=== PATIENT | male | born 1980 | race Caucasian/White ===

== ENCOUNTER 2017-10-23 23:43 | Inpatient (IN) ==
[2017-10-23 23:56] VITALS: BMI 23.6
[2017-10-23] MEDS ORDERED: NS 1000 ML 1,000 ML IV ONE ×2 (23:57)
[2017-10-23] MEDS ORDERED: NS 1000 ML 1,000 ML ONE (23:59)
--- NOTE | 2017-10-23 23:59 | DR.GENAD ---
HPI - PCP Primary Care Physician: KRYS - Complaint/Symptoms Chief Complaint Doctors Comments: Patient states that he has had vomiiting and diarrhea for three days. He also complains of stomach pain. He denies fever Chief Complaint:: N/V ABD PAIN FOR 3 DAYS - Source History Provided: Patient - Mode of Arrival Mode of Arrival: Stretcher - Timing Onset of Chief Complaint: 10/20/17 PMH - PMH Past Medical History: Yes Past Medical History: Anxiety, Depression, Diabetes, GERD, Hypertension Past Surgical History: Yes Surgical History: Other Past Surgical History Comment: PAC - Family History History of Family Medical Conditions: Yes Family Medical History: Diabetes Mellitus, Sudden Cardiac , Hypertension - Social History Type of Tobacco Use: Cigarettes Does any household member use tobacco: Yes Do you use any recreational Drugs:: No - infectious screening In the last 2 months have you had wt loss of >10#?: NO Have you had fever, night sweats or hemotysis?: No Have you traveled outside the country in the last 6 months?: No Isolation: Standard ROS - Review of Systems Constitutional: negative: Diaphoresis Eyes: No Symptoms Reported ENTM: No Symptoms Reported Respiratoy: No Symptoms Reported Cardiovascular: No Symptoms Reported Gastrointestinal/Abdominal: No Symptoms Reported, Abdominal Pain Genitourinary: No Symptoms Reported Neurological: No Symptoms Reported Musculoskeletal: No Symptoms Reported Integumentary: No Symptoms Reported Hematologic/Lymphatic: No Symptoms Reported Endocrine: No Symptoms Reported Psychiatric: No Symptoms Reported All Other Systems: Reviewed and Negative PE - General General Appearance: Alert, Anxious - Head Head Exam: Normal Inspection, Atraumatic - Eyes Eye exam: Normal Appearance, PERRL, EOMI - ENT ENT Exam: Normal Exam External Ear Exam: Normal External Inspection TM/Canal Exam: Bilateral Normal Nose Exam: Normal Nose Exam Mouth Exam: Normal Inspection Throat Exam: Normal Inspection - Neck Neck Exam: Normal Inspection - Chest Chest Inspection: Normal Inspection - Respiratory Respiratory Exam: Normal Lung Sounds Bilat Respiratory Exam: Bilateral Clear to Auscultation - Cardiovascular Cardiovascular Exam: Regular Rate - Abdominal Exam Abdominal Exam: Normal Inspection Abdominal Tenderness: Diffuse - Extremities Extremities Exam: Normal Inspection - Back Back Exam: Normal Inspection - Neurologic Neurological Exam: Alert, Oriented X3 - Psychiatric Psychiatric Exam: Normal Affect - Skin Skin Exam: Warm, Dry, Intact - Vital Signs Vitals: Temperature 98.2 F Pulse Rate 116 Respiratory Rate 18 Blood Pressure [Left Arm] 112/78 Blood Pressure [Right Arm] 165/93 Blood Pressure 130/86 O2 Sat by Pulse Oximetry 97 Course - Reevaluation 1st: Improved - Consultation Called: 01:35 (Dr Zapien returned agreed to admit for further evalaution) ROR - Labs Reviewed Result Diagrams: 10/24/17 00:10 10/24/17 03:48 - XRAY XRAY Interpreted by: Radiologist (CT abd/pel w. The patient received intravenous contrast followed by multiplanar images. The cardiac chambers lung bases are negative. The liver gallbladder pancreas spleen and left kidney are negative for active pathology. The right kidney demonstrates mild to moderate fullness of the renal pelvis without a discrete filling defect. The urinary bladder significantly distended relux related changes are suspected. The skeleton is negative. The retroperitoneum is negative for free fluid. There is a mild degree of stool retained diffusely throughout the colon compatible with constipation. A small rectal fecal impaction is present. Impressin: Rectal fecal impaction. Marked distention of the urinary bladder right sided ureteral reflux producing mild hydronephrosis.) - Labs Reviewed Laboratory: WBC 11.3 X10^3/uL (3.6-10.0) H 10/24/17 00:10 RBC 5.16 X10^6/uL (4.7-6.0) 10/24/17 00:10 Hgb 15.0 g/dL (13.5-18.0) 10/24/17 00:10 Hct 44.6 % (42.0-54.0) 10/24/17 00:10 MCV 86.4 fL (80.0-100.0) 10/24/17 00:10 MCH 29.0 pg (27.0-34.0) 10/24/17 00:10 MCHC 33.6 g/dL (33.0-35.0) 10/24/17 00:10 RDW 13.6 % (11.6-16.5) 10/24/17 00:10 Plt Count 246 X10^3/uL (150.0-450.0) 10/24/17 00:10 MPV 9.4 fL (7.4-11.0) 10/24/17 00:10 Neut % (Auto) 54.6 % (42.0-75.0) 10/24/17 00:10 Lymph % (Auto) 37.1 % (21.0-51.0) 10/24/17 00:10 [place] % (Auto) 5.2 % (0.0-13.0) 10/24/17 00:10 Eos % (Auto) 2.1 % (0.9-2.9) 10/24/17 00:10 Baso % (Auto) 1.0 % (0.2-1.0) 10/24/17 00:10 Neut # (Auto) 6.2 x10^3/uL (2.2-4.8) H 10/24/17 00:10 Lymph # (Auto) 4.2 X10^3/uL (1.3-2.9) H 10/24/17 00:10 [place] # (Auto) 0.6 x10^3/uL (0.3-0.8) 10/24/17 00:10 Eos # (Auto) 0.2 x10^3/uL (0.0-0.2) 10/24/17 00:10 Baso # (Auto) 0.1 X10^3/uL (0.0-0.1) 10/24/17 00:10 Absolute Nucleated RBC 0.1 /100WBC 10/24/17 00:10 Sample Site Lr 10/24/17 01:17 ABG pH 7.230 (7.35-7.45) L 10/24/17 01:17 ABG pCO2 29.0 mmHg (35.0-45.0) L 10/24/17 01:17 ABG pO2 101.0 mmHg (80.0-100.0) H 10/24/17 01:17 ABG HCO3 12.1 mmol/L (22-26) L* 10/24/17 01:17 ABG O2 Saturation 96.0 % (90-100) 10/24/17 01:17 ABG Base Excess -14.1 mmol/L (-2.0-2.0) L 10/24/17 01:17 Geoff Test Pos 10/24/17 01:17 A-a Gradient 12.0 mmHg 10/24/17 01:17 FiO2 21.000 10/24/17 01:17 Blood Gas Comments Marva well ae 10/24/17 01:17 Sodium 142 mmol/L (136-145) 10/24/17 03:48 Corrected Sodium 149 mmol/L (136-145) H 10/24/17 03:48 Potassium 4.3 mmol/L (3.5-5.1) 10/24/17 03:48 Chloride 103 mmol/L (98-107) 10/24/17 03:48 Carbon Dioxide 13.9 mmol/L (21-32) L* 10/24/17 03:48 BUN 6 mg/dL (7-18) L 10/24/17 03:48 Creatinine 1.27 mg/dL (0.70-1.30) 10/24/17 03:48 Est GFR (MDRD) Af Amer > 60 (>60) 10/24/17 03:48 Est GFR (MDRD) Non-Af > 60 (>60) 10/24/17 03:48 Glucose 388 mg/dL (65-99) H 10/24/17 03:48 Calcium 8.9 mg/dL (8.5-10.1) 10/24/17 03:48 Corrected Calcium TNP 10/24/17 00:10 Total Bilirubin 0.70 mg/dL (0.2-1.0) 10/24/17 00:10 AST 24 Units/L (15-37) 10/24/17 00:10 ALT 15 Units/L (12-78) 10/24/17 00:10 Alkaline Phosphatase 93 Units/L (46-116) 10/24/17 00:10 Total Protein 8.0 g/dL (6.4-8.2) 10/24/17 00:10 Albumin 4.0 g/dL (3.4-5.0) 10/24/17 00:10 Globulin 4.0 g/dL (2.5-4.5) 10/24/17 00:10 Albumin/Globulin Ratio 1.0 Ratio (1.1-2.1) L 10/24/17 00:10 Amylase 29 Units/L (25-115) 10/24/17 00:10 Lipase 45 Units/L (73-393) L 10/24/17 00:10 Specimen Type Random urine 10/24/17 02:54 Urine Color Pale yellow (YELLOW) 10/24/17 02:54 Urine Appearance Clear (CLEAR) 10/24/17 02:54 Urine pH 5.0 (5.0 - 8.0) 10/24/17 02:54 Ur Specific [place] 1.020 (1.000-1.030) 10/24/17 02:54 Urine Protein 2+ (NEGATIVE) 10/24/17 02:54 Urine Glucose (UA) 4+ (NEGATIVE) 10/24/17 02:54 Urine Ketones 4+ (NEGATIVE) 10/24/17 02:54 Urine Occult Blood 1+ (NEGATIVE) 10/24/17 02:54 Urine Nitrite Negative (NEGATIVE) 10/24/17 02:54 Urine Bilirubin Negative (NEGATIVE) 10/24/17 02:54 Urine Urobilinogen Normal (NORMAL) 10/24/17 02:54 Ur Leukocyte Esterase Negative (NEGATIVE) 10/24/17 02:54 Urine RBC 0-2 /HPF (NONE SEEN) 10/24/17 02:54 Urine WBC None seen /HPF (NONE SEEN) 10/24/17 02:54 Ur Squamous Epith Cells Rare /HPF (NEGATIVE) 10/24/17 02:54 Urine Bacteria Negative /HPF (NEGATIVE) 10/24/17 02:54 Ur Culture Indicated? No/not indicated 10/24/17 02:54 Urine Opiates Screen Negative (NEG=<300) 10/24/17 02:54 Urine Methadone Screen Positive (NEG=<300) 10/24/17 02:54 Ur Barbiturates Screen Negative (NEG=<200) 10/24/17 02:54 Ur Phencyclidine Scrn Negative (NEG=<25) 10/24/17 02:54 Ur Amphetamines Screen Positive (NEG=<1000) 10/24/17 02:54 U Benzodiazepines Scrn Positive (NEG=<200) 10/24/17 02:54 Urine Cocaine Screen Negative (NEG=<300) 10/24/17 02:54 U Marijuana (THC) Screen Negative (NEG=<50) 10/24/17 02:54 Acetone, Semi-Quant Moderate (NEGATIVE) H 10/24/17 00:10 - Diagnosis Discharge Problem: Metabolic acidemia, Amphetamine abuse, Fecal impaction in rectum - Discharge Plan Disposition: ADMITTED INPATIENT Condition: Stable - Follow ups/Referrals Follow ups/Referrals: Charlie Dallas [Primary Care Provider] - 3 days - Instructions
[2017-10-24] MEDS ORDERED: ZOFRAN INJ 4 MG VIAL IVP ONE (00:19)
[2017-10-24 00:24] LABS: BASOPHILS # (AUTO) 0.1 X10^3/uL (0.0-0.1); EOSINOPHILS # (AUTO) 0.2 x10^3/uL (0.0-0.2); EOSINOPHILS % (AUTO) 2.1 % (0.9-2.9); HEMATOCRIT 44.6 % (42.0-54.0); LYMPHOCYTES # (AUTO) 4.2 X10^3/uL (1.3-2.9); LYMPHOCYTES % (AUTO) 37.1 % (21.0-51.0); MEAN CORPUSCULAR HGB CONC 33.6 g/dL (33.0-35.0); MEAN CORPUSCULAR VOLUME 86.4 fL (80.0-100.0); MEAN PLATELET VOLUME 9.4 fL (7.4-11.0); MONOCYTES # (AUTO) 0.6 x10^3/uL (0.3-0.8); MONOCYTES % (AUTO) 5.2 % (0.0-13.0); NEUTROPHILS # (AUTO) 6.2 x10^3/uL (2.2-4.8); NEUTROPHILS % (AUTO) 54.6 % (42.0-75.0); PLATELET COUNT 246 X10^3/uL (150.0-450.0); RED BLOOD COUNT 5.16 X10^6/uL (4.7-6.0); RED CELL DISTRIBUTION WIDTH 13.6 % (11.6-16.5); WHITE BLOOD COUNT 11.3 X10^3/uL (3.6-10.0)
[2017-10-24 00:31] LABS: SERUM ACETONE MODERATE (NEGATIVE)
[2017-10-24 00:35] LABS: BLOOD UREA NITROGEN 7 mg/dL (7-18); CALCIUM 9.6 mg/dL (8.5-10.1); CHLORIDE 100 mmol/L (98-107); COR NA(FOR HYPERGLY) 144 mmol/L (136-145); CREATININE 1.22 mg/dL (0.70-1.30); SODIUM 138 mmol/L (136-145); eGFR NON BLACK RACES > 60 (>60)
[2017-10-24 00:39] LABS: ALANINE AMINOTRANSFERASE 15 Units/L (12-78); ALKALINE PHOSPHATASE 93 Units/L (46-116); AMYLASE 29 Units/L (25-115); ASPARTATE AMINO TRANSFERASE 24 Units/L (15-37); LIPASE 45 Units/L (73-393)
[2017-10-24 00:40] LABS: CARBON DIOXIDE 10.8 mmol/L (21-32)
[2017-10-24] MEDS ORDERED: D5 LR 1000 ML 1,000 ML with SODIUM BICARBONATE 8.4% INJ ADULT 100 ML IV ONE ×2 (00:45)
[2017-10-24] MEDS ORDERED: SODIUM BICARBONATE 8.4% INJ ADULT 50 ML in NS 1/2 500 ML IV 500 ML IV ONE (00:50)
[2017-10-24] MEDS ORDERED: SODIUM BICARBONATE 8.4% INJ ADULT ONE ×4 (00:57→08:34)
[2017-10-24] MEDS ORDERED: COMPAZINE INJ ONE (00:57)
[2017-10-24] MEDS ORDERED: REGLAN INJ 10 MG VIAL IVP ONE (00:58)
[2017-10-24] MEDS ORDERED: COMPAZINE INJ IM ONE (01:00)
[2017-10-24] MEDS ORDERED: SODIUM BICARBONATE 8.4% INJ ADULT IVP ONE ×2 (01:01→01:31)
[2017-10-24] MEDS ORDERED: NS + KCL 20 MEQ/L 1,000 ML IV ONE (01:05)
[2017-10-24] MEDS: OFIRMEV IV 1000 MG VIAL 500 MG/50 ML VIAL IV PRN ×2 (01:10→13:30)
[2017-10-24 01:27] LABS: ABG BASE EXCESS -14.1 mmol/L (-2.0-2.0)
[2017-10-24 01:28] LABS: ABG ALLEN TEST POS; ABG HCO3 12.1 mmol/L (22-26)
[2017-10-24] MEDS ORDERED: MORPHINE SULFATE INJ 4 MG IVP ONE (01:39)
[2017-10-24] MEDS ORDERED: MORPHINE SULFATE INJ 4 MG ONE (01:40)
[2017-10-24] MEDS ORDERED: NS + KCL 20 MEQ/L 1,000 ML IV SCH (02:00)
[2017-10-24] MEDS ORDERED: NS 100 ML IV 100 ML IV ONE ×2 (02:13→13:38)
--- NOTE | 2017-10-24 03:07 | CT ---
CT of the abdomen pelvis with contrast Indication: Abdominal pain nausea and vomiting Findings: The patient received intravenous contrast followed by multiplanar images. The cardiac chamb ers lung bases are negative. The liver gallbladder pancreas spleen and left kidney are negative for a ctive pathology. The right kidney demonstrates mild to moderate fullness of the renal pelvis without a discrete filling defect. The urinary bladder significantly distended reflux related changes are omayra pected. The skeleton is negative. The retroperitoneum is negative for free fluid. There is a mild degree of s tool retained diffusely throughout the colon compatible with constipation. A small rectal fecal impac tion is present. Impression: 1. Rectal fecal impaction seen. 2. Marked distention of the urinary bladder right-sided ureteral reflux producing mild hydronephrosis . Reported By:
[2017-10-24 03:18] LABS: BILIRUBIN,URINE NEGATIVE (NEGATIVE); BLOOD/HEMOGLOBIN,URINE 1+ (NEGATIVE); GLUCOSE, URINE 4+ (NEGATIVE); KETONES,URINE 4+ (NEGATIVE); LEUKOCYTE ESTERASE ,URINE NEGATIVE (NEGATIVE); NITRITES,URINE NEGATIVE (NEGATIVE); PROTEIN,URINE 2+ (NEGATIVE); UROBILINOGEN,URINE NORMAL (NORMAL)
[2017-10-24 03:29] LABS: APPEARANCE,URINE CLEAR (CLEAR); COLOR,URINE PALE YELLOW (YELLOW)
[2017-10-24 03:30] LABS: BACTERIA,URINE NEGATIVE /HPF (NEGATIVE); RBC,URINE 0-2 /HPF (NONE SEEN); SQUAMOUS EPITHELIAL CELL,UR RARE /HPF (NEGATIVE)
[2017-10-24 04:09] LABS: BLOOD UREA NITROGEN 6 mg/dL (7-18); CALCIUM 8.9 mg/dL (8.5-10.1); CHLORIDE 103 mmol/L (98-107); COR NA(FOR HYPERGLY) 149 mmol/L (136-145); CREATININE 1.27 mg/dL (0.70-1.30); SODIUM 142 mmol/L (136-145); eGFR NON BLACK RACES > 60 (>60)
[2017-10-24 04:23] LABS: CARBON DIOXIDE 13.9 mmol/L (21-32)
[2017-10-24] MEDS ORDERED: D5 LR 1000 ML 1,000 ML IV ONE (04:32)
[2017-10-24] MEDS ORDERED: METHADONE HCL PO PRN (04:50)
[2017-10-24] MEDS ORDERED: HumaLOG SC SCH (05:00)
--- NOTE | 2017-10-24 05:02 | RAD ---
Chest single view Indication: Illicit drug use Findings: The heart and mediastinum are normal. There is a right-sided Port-A-Cath with the SVC. The lungs are negative for focal infiltrate effusion or pneumothorax. There is no venous congestion is se en. The skeleton is negative Impression: Negative exam of the chest. Reported By:
[2017-10-24] MEDS ORDERED: [UNRECOGNIZED DRUG - OTHER] XX SCH (06:30)
[2017-10-24] MEDS ORDERED: METOCLOPRAMIDE HCL 5 MG PO SCH (06:30)
[2017-10-24] MEDS: REGLAN TAB 5 MG PO SCH ×2 (07:03→12:01)
[2017-10-24] MEDS: NEURONTIN CAP 100 MG PO SCH (07:03)
[2017-10-24] MEDS: HumuLIN R SC PRN ×2 (07:15→10:56)
[2017-10-24] MEDS: PHENERGAN INJ 25 MG IV PRN ×2 (07:15→11:01)
[2017-10-24] MEDS ORDERED: NS 1000 ML 1,000 ML ONE ×2 (07:48→14:29)
[2017-10-24] MEDS ORDERED: NS 1000 ML 1,000 ML with SODIUM BICARBONATE 8.4% INJ ADULT 50 ML IV SCH ×2 (08:00)
[2017-10-24 08:29] LABS: BLOOD UREA NITROGEN 8 mg/dL (7-18); CALCIUM 8.9 mg/dL (8.5-10.1); CHLORIDE 104 mmol/L (98-107); CREATININE 1.66 mg/dL (0.70-1.30); SODIUM 142 mmol/L (136-145); eGFR NON BLACK RACES 50 (>60)
[2017-10-24] MEDS: NS 1000 ML 1,000 ML IV SCH ×4 (08:30→14:30)
[2017-10-24 08:47] LABS: COR NA(FOR HYPERGLY) 153 mmol/L (136-145)
[2017-10-24] MEDS ORDERED: NS 1000 ML 2,000 ML ONE (08:50)
[2017-10-24] MEDS ORDERED: MILK OF MAGNESIA PO SCH (09:00)
[2017-10-24] MEDS ORDERED: DEXTROAMPHETAMINE AMPHETAMINE 20 MG PO SCH (09:00)
[2017-10-24] MEDS ORDERED: PEPCID TAB 20 MG PO SCH (09:00)
[2017-10-24] MEDS ORDERED: LEVEMIR SC SCH (09:00)
[2017-10-24] MEDS ORDERED: PATIENT'S HOME MEDICATION (Lisinopril 5 MG) PO SCH (09:00)
[2017-10-24] MEDS ORDERED: INSULIN DETEMIR U 20 UNIT SC SCH (09:00)
[2017-10-24] MEDS ORDERED: ZESTRIL TAB 5 MG PO SCH (09:00)
[2017-10-24 09:18] LABS: BILIRUBIN,URINE NEGATIVE (NEGATIVE); BLOOD/HEMOGLOBIN,URINE 4+ (NEGATIVE); GLUCOSE, URINE 4+ (NEGATIVE); KETONES,URINE 4+ (NEGATIVE); LEUKOCYTE ESTERASE ,URINE NEGATIVE (NEGATIVE); NITRITES,URINE NEGATIVE (NEGATIVE); PROTEIN,URINE 2+ (NEGATIVE); UROBILINOGEN,URINE NORMAL (NORMAL)
[2017-10-24 09:25] LABS: APPEARANCE,URINE HAZY (CLEAR); BACTERIA,URINE NEGATIVE /HPF (NEGATIVE); COLOR,URINE YELLOW (YELLOW); MUCUS,URINE FEW /HPF (NEGATIVE); RBC,URINE 0-2 /HPF (NONE SEEN); SQUAMOUS EPITHELIAL CELL,UR NEGATIVE /HPF (NEGATIVE)
[2017-10-24] MEDS ORDERED: NS 1000 ML 1,000 ML with SODIUM BICARBONATE 8.4% INJ ADULT 100 ML IV SCH ×2 (09:29)
[2017-10-24] MEDS: LEVEMIR SC SCH ×2 (09:33→20:21)
--- NOTE | 2017-10-24 11:08 | DR.H&P ---
H&P - History & Physical for Day of: H&P Date: 10/24/17 - Chief Complaint Chief Complaint: NAUSEA, VOMITING, ABDOMINAL PAIN - Past Medical History Past Medical History: Anxiety, Depression, Diabetes, GERD, Hypertension Additional Medical History: DKA, Gastroparesis, Chronic Low Back Pain With Radiculopathy, Pancreatitis, UTI's - Past Surgical History Surgical History: Other Additional Surgical History: [place] Teeth Surgically Removed - Family History Family Medical History: Diabetes Mellitus, Sudden Cardiac , Hypertension - Social History Does patient currently use any type of tobacco product: Yes Have you used tobacco products in the last 12 months: Yes Type of Tobacco Use: Cigarettes Does any household member use tobacco: Yes Alcohol Use: Occasionally Drug Use: Prescription Drugs, Methamphetamine - Medications Home Medications: No Known Drug Allergies Allergy (Verified 10/07/17 10:20) CONTINUE taking the following medications clonazepam [Klonopin] 2 mg PO HS 10/24/17 [History] dextroamphetamine-amphetamine [Adderall] 20 mg PO BID 10/24/17 [History] - Review of Systems Constitutional: Sweats, Weakness. denies: Fever Eyes: No Symptoms Reported ENT: No Symptoms Reported Respiratory: Shortness of Breath Cardiovascular: No Symptoms Reported Gastrointestinal: Nausea, Vomiting, Abdominal Pain, Constipation. denies: Diarrhea Genitourinary: No Symptoms Reported Musculoskeletal: No Symptoms Reported Skin: No Symptoms Reported Neurological: Weakness - Physical Exam Vital Signs: Temperature 98.3 F Pulse Rate [Left Brachial] 133 Pulse Rate 116 Respiratory Rate 24 Blood Pressure [Left Arm] 118/71 Blood Pressure [Right Arm] 165/93 Blood Pressure 130/86 O2 Sat by Pulse Oximetry 100 Oriented: Normal Eyes: Normal Ear: Normal Nose: Normal Throat: Normal Respiratory: Diminished Throughout Cardiovascular: Tachycardia. negative: S3, S4, Murmur, Edema : Normal Auscultation: Bowel Sounds: Normal Palpation: Normal Tenderness: Diffuse, Moderate. negative: Rebound, Guarding, Rigidity Skin: Diaphoresis Musculoskeletal: Normal Psychiatric: Normal Mood Description: Calm Affect: Normal Speech Pattern: Clear - Assessment/Plan (1) DKA (diabetic ketoacidoses) Qualifiers: Diabetes mellitus type: type 1 Diabetes mellitus complication detail: without coma Qualified Code(s): E10.10 - Type 1 diabetes mellitus with ketoacidosis without coma Status: Acute Plan: ADMIT, IV FLUIDS, MONITOR LABS AND ABG, CONTINUE TO MONITOR (2) Metabolic acidemia Status: Acute Plan: NORMAL SALINE WITH SODIUM BICARB, CONTINUE TO MONITOR LABS AND ABG (3) Nausea & vomiting Qualifiers: Vomiting type: unspecified Vomiting Intractability: intractable Qualified Code(s): R11.2 - Nausea with vomiting, unspecified Status: Acute Plan: ZOFRAN, IV FLUIDS, CONTINUE TO MONITOR - Allergies Allergies/Adverse Reactions: Allergies Allergy/AdvReac Type Severity Reaction Status Date / Time No Known Drug Allergies Allergy Verified 10/07/17 10:20
[2017-10-24 12:06] LABS: BLOOD UREA NITROGEN 6 mg/dL (7-18); CALCIUM 7.9 mg/dL (8.5-10.1); COR NA(FOR HYPERGLY) 156 mmol/L (136-145); CREATININE 1.38 mg/dL (0.70-1.30); eGFR NON BLACK RACES > 60 (>60)
[2017-10-24 12:11] LABS: CHLORIDE 115 mmol/L (98-107); SODIUM 151 mmol/L (136-145)
[2017-10-24 12:12] LABS: CARBON DIOXIDE 7.2 mmol/L (21-32)
[2017-10-24 12:36] LABS: ABG BASE EXCESS -23.7 mmol/L (-2.0-2.0)
[2017-10-24 12:38] LABS: ABG HCO3 3.5 mmol/L (22-26)
[2017-10-24] MEDS: SODIUM BICARBONATE IV SCH ×4 (13:30→13:35)
[2017-10-24] MEDS: NS IV SCH ×4 (13:30→13:35)
[2017-10-24] MEDS ORDERED: VASOTEC INJ 2.5 MG VIAL IVP PRN (13:35)
[2017-10-24] MEDS ORDERED: NS 1/2 + KCL 20 MEQ/L 1,000 ML IV ONE (13:57)
[2017-10-24 14:12] LABS: SERUM ACETONE LARGE (NEGATIVE)
[2017-10-24 14:27] LABS: BASOPHILS % (AUTO) 0.2 % (0.2-1.0); HEMATOCRIT 31.7 % (42.0-54.0); LYMPHOCYTES % (AUTO) 9.5 % (21.0-51.0); MEAN CORPUSCULAR HEMOGLOBIN 28.5 pg (27.0-34.0); MEAN CORPUSCULAR HGB CONC 32.9 g/dL (33.0-35.0); MEAN CORPUSCULAR VOLUME 86.4 fL (80.0-100.0); MEAN PLATELET VOLUME 8.9 fL (7.4-11.0); MONOCYTES # (AUTO) 1.2 x10^3/uL (0.3-0.8); MONOCYTES % (AUTO) 5.9 % (0.0-13.0); NEUTROPHILS # (AUTO) 17.5 x10^3/uL (2.2-4.8); NEUTROPHILS % (AUTO) 84.4 % (42.0-75.0); PLATELET COUNT 175 X10^3/uL (150.0-450.0); RED BLOOD COUNT 3.67 X10^6/uL (4.7-6.0); RED CELL DISTRIBUTION WIDTH 13.7 % (11.6-16.5)
[2017-10-24] MEDS: NS 1/2 + KCL 20 MEQ/L 1,000 ML IV SCH ×3 (14:35→19:26)
[2017-10-24 14:36] LABS: HEMOGLOBIN 10.4 g/dL (13.5-18.0)
[2017-10-24 14:37] LABS: WHITE BLOOD COUNT 20.8 X10^3/uL (3.6-10.0)
[2017-10-24 14:51] LABS: CALCIUM 7.7 mg/dL (8.5-10.1); eGFR NON BLACK RACES > 60 (>60)
[2017-10-24 15:19] LABS: ALANINE AMINOTRANSFERASE 11 Units/L (12-78); ALBUMIN 2.5 g/dL (3.4-5.0); ALKALINE PHOSPHATASE 58 Units/L (46-116); ASPARTATE AMINO TRANSFERASE 12 Units/L (15-37); BLOOD UREA NITROGEN 6 mg/dL (7-18); CKMB % 0.8 % (<4); COR CA(FOR HYPOALB) 8.9 mg/dL (8.5-10.1); COR NA(FOR HYPERGLY) 159 mmol/L (136-145); CREATINE KINASE 355 Units/L (39-308); CREATINE KINASE MB 2.7 ng/mL (0-4.0); CREATININE 1.23 mg/dL (0.70-1.30); TOTAL PROTEIN 4.7 g/dL (6.4-8.2); TROPONIN I 0.06 ng/mL (0-1.5)
[2017-10-24 15:23] LABS: CARBON DIOXIDE 14.3 mmol/L (21-32); CHLORIDE 120 mmol/L (98-107); SODIUM 157 mmol/L (136-145)
[2017-10-24] MEDS: HumaLOG SC SCH (16:02)
[2017-10-24 16:26] LABS: ABG BASE EXCESS -8.7 mmol/L (-2.0-2.0)
[2017-10-24 16:28] LABS: ABG ALLEN TEST pos; ABG HCO3 14.8 mmol/L (22-26)
[2017-10-24 16:32] LABS: BLOOD UREA NITROGEN 5 mg/dL (7-18); CARBON DIOXIDE 15.7 mmol/L (21-32); COR NA(FOR HYPERGLY) 159 mmol/L (136-145); CREATININE 1.21 mg/dL (0.70-1.30); eGFR NON BLACK RACES > 60 (>60)
[2017-10-24 16:39] LABS: SODIUM 158 mmol/L (136-145)
[2017-10-24] MEDS ORDERED: POTASSIUM CHL 60 MEQ/NS 0.45% 500 ML IV PRN (17:51)
[2017-10-24] MEDS ORDERED: POTASSIUM CHLORIDE LIQ 20 MEQ UDC PO PRN (17:51)
[2017-10-24] MEDS ORDERED: K-LYTE EFFERVESCENT PO PRN (17:51)
[2017-10-24] MEDS: POTASSIUM CHL 40 MEQ/NS 0.45% 500 ML IV PRN (18:09)
[2017-10-24 20:21] LABS: BLOOD UREA NITROGEN 5 mg/dL (7-18); CALCIUM 8.3 mg/dL (8.5-10.1); COR NA(FOR HYPERGLY) 156 mmol/L (136-145); eGFR NON BLACK RACES > 60 (>60)
[2017-10-24 20:28] LABS: SODIUM 156 mmol/L (136-145)
[2017-10-24] MEDS ORDERED: CLONAZEPAM 2 MG PO SCH (21:00)
[2017-10-24] MEDS ORDERED: COLACE CAP 100 MG PO SCH (21:00)
[2017-10-24 23:17] LABS: ABG HCO3 16.7 mmol/L (22-26)
[2017-10-25 00:15] LABS: BLOOD UREA NITROGEN 4 mg/dL (7-18); CALCIUM 8.2 mg/dL (8.5-10.1); CARBON DIOXIDE 21.8 mmol/L (21-32); COR NA(FOR HYPERGLY) 153 mmol/L (136-145); CREATININE 1.25 mg/dL (0.70-1.30); eGFR NON BLACK RACES > 60 (>60)
[2017-10-25 00:34] LABS: SODIUM 153 mmol/L (136-145)
[2017-10-25 00:35] LABS: CHLORIDE 117 mmol/L (98-107)
[2017-10-25 00:48] LABS: ABG BASE EXCESS -7.7 mmol/L (-2.0-2.0)
[2017-10-25 00:54] LABS: ABG HCO3 15.7 mmol/L (22-26)
[2017-10-25] MEDS: POTASSIUM CHL 40 MEQ/NS 0.45% 500 ML IV PRN (00:57)
[2017-10-25] MEDS: OFIRMEV IV 1000 MG VIAL 500 MG/50 ML VIAL IV PRN (01:25)
[2017-10-25] MEDS: PHENERGAN INJ 25 MG IV PRN ×2 (01:26→05:15)
[2017-10-25] MEDS: NS 1/2 + KCL 20 MEQ/L 1,000 ML IV SCH (02:50)
[2017-10-25 04:30] LABS: SERUM ACETONE LG (NEGATIVE)
[2017-10-25 04:37] LABS: MEAN CORPUSCULAR HGB CONC 33.6 g/dL (33.0-35.0)
[2017-10-25 04:39] LABS: BLOOD UREA NITROGEN 4 mg/dL (7-18); CALCIUM 8.3 mg/dL (8.5-10.1); CARBON DIOXIDE 17.5 mmol/L (21-32); CHLORIDE 113 mmol/L (98-107); COR NA(FOR HYPERGLY) 152 mmol/L (136-145); eGFR NON BLACK RACES > 60 (>60)
[2017-10-25 04:40] LABS: MAGNESIUM 1.8 mg/dL (1.7-2.9)
[2017-10-25 05:02] LABS: SODIUM 151 mmol/L (136-145)
[2017-10-25 05:06] LABS: BASOPHILS % (AUTO) 0.2 % (0.2-1.0); HEMATOCRIT 34.6 % (42.0-54.0); HEMOGLOBIN 11.6 g/dL (13.5-18.0); LYMPHOCYTES # (AUTO) 2.7 X10^3/uL (1.3-2.9); LYMPHOCYTES % (AUTO) 11.4 % (21.0-51.0); MEAN CORPUSCULAR HEMOGLOBIN 28.5 pg (27.0-34.0); MEAN CORPUSCULAR VOLUME 84.6 fL (80.0-100.0); MEAN PLATELET VOLUME 10.3 fL (7.4-11.0); MONOCYTES # (AUTO) 1.8 x10^3/uL (0.3-0.8); MONOCYTES % (AUTO) 7.5 % (0.0-13.0); NEUTROPHILS # (AUTO) 19.1 x10^3/uL (2.2-4.8); NEUTROPHILS % (AUTO) 80.9 % (42.0-75.0); PLATELET COUNT 167 X10^3/uL (150.0-450.0); RED BLOOD COUNT 4.09 X10^6/uL (4.7-6.0); RED CELL DISTRIBUTION WIDTH 13.5 % (11.6-16.5); WHITE BLOOD COUNT 23.6 X10^3/uL (3.6-10.0)
[2017-10-25 05:14] LABS: BAND NEUTROPHILS % 7 % (0-10); PLATELET MORPHOLOGY COMMENT NORMAL (NORMAL)
[2017-10-25] MEDS: NS 1000 ML 1,000 ML IV SCH (05:15)
[2017-10-25 05:55] LABS: ABG BASE EXCESS -10.1 mmol/L (-2.0-2.0)
[2017-10-25 05:57] LABS: ABG HCO3 13.3 mmol/L (22-26)
[2017-10-25] MEDS: HumaLOG SC SCH ×2 (08:13→11:16)
[2017-10-25] MEDS: LEVEMIR SC SCH (08:13)
[2017-10-25 08:50] LABS: BLOOD UREA NITROGEN 2 mg/dL (7-18); CALCIUM 8.1 mg/dL (8.5-10.1); CHLORIDE 109 mmol/L (98-107); COR NA(FOR HYPERGLY) 148 mmol/L (136-145); CREATININE 1.08 mg/dL (0.70-1.30); SODIUM 146 mmol/L (136-145); eGFR NON BLACK RACES > 60 (>60)
[2017-10-25] MEDS: PROTONIX INJ 40 MG VIAL IVP SCH (08:59)
[2017-10-25] MEDS ORDERED: NS 1/2 1000 ML IV 1,000 ML with SODIUM BICARBONATE 8.4% INJ ADULT 100 ML IV SCH ×2 (09:00)
[2017-10-25] MEDS ORDERED: METHADONE HCL PO PRN (09:00)
[2017-10-25] MEDS ORDERED: ZOFRAN INJ 4 MG VIAL 16 MG, ATIVAN INJ 2 MG VIAL 1 MG, DECADRON INJ 10 MG in NS 50 ML I... IV PRN (09:23)
[2017-10-25 09:45] LABS: CHLORIDE 117 mmol/L (98-107)
[2017-10-25] MEDS: MILK OF MAGNESIA PO SCH ×4 (09:49→21:44)
[2017-10-25] MEDS: DILAUDID INJ IVP PRN ×4 (09:49→21:52)
[2017-10-25] MEDS: COLACE CAP 100 MG PO SCH (09:49)
[2017-10-25] MEDS: NS IV SCH ×4 (09:50→17:59)
[2017-10-25] MEDS: SODIUM BICARBONATE 8.4% IV SCH ×4 (09:50→17:59)
[2017-10-25] MEDS: KCL IV SCH ×4 (09:50→17:59)
[2017-10-25] MEDS: REGLAN TAB 5 MG PO SCH ×2 (11:11→15:57)
[2017-10-25 12:13] LABS: BLOOD UREA NITROGEN 2 mg/dL (7-18); CALCIUM 7.9 mg/dL (8.5-10.1); CARBON DIOXIDE 15.3 mmol/L (21-32); CHLORIDE 108 mmol/L (98-107); COR NA(FOR HYPERGLY) 146 mmol/L (136-145); CREATININE 1.17 mg/dL (0.70-1.30); SODIUM 143 mmol/L (136-145); eGFR NON BLACK RACES > 60 (>60)
[2017-10-25] MEDS: NEURONTIN CAP 100 MG PO SCH ×2 (13:20→21:44)
[2017-10-25 16:38] LABS: BLOOD UREA NITROGEN 4 mg/dL (7-18); CALCIUM 8.5 mg/dL (8.5-10.1); CHLORIDE 105 mmol/L (98-107); COR NA(FOR HYPERGLY) 144 mmol/L (136-145); SODIUM 141 mmol/L (136-145); eGFR NON BLACK RACES > 60 (>60)
[2017-10-25 16:42] LABS: CARBON DIOXIDE 13.7 mmol/L (21-32)
[2017-10-25 20:45] LABS: BLOOD UREA NITROGEN 5 mg/dL (7-18); CALCIUM 8.7 mg/dL (8.5-10.1); CHLORIDE 105 mmol/L (98-107); COR NA(FOR HYPERGLY) 142 mmol/L (136-145); CREATININE 1.07 mg/dL (0.70-1.30); SODIUM 140 mmol/L (136-145); eGFR NON BLACK RACES > 60 (>60)
[2017-10-25 20:48] LABS: CARBON DIOXIDE 14.5 mmol/L (21-32)
[2017-10-25] MEDS: KLONOPIN TAB 1 MG PO SCH (21:44)
[2017-10-25 23:12] LABS: ABG BASE EXCESS -8.7 mmol/L (-2.0-2.0)
[2017-10-25 23:13] LABS: ABG HCO3 15.3 mmol/L (22-26)
[2017-10-26] MEDS ORDERED: NS 1/2 + KCL 20 MEQ/L 1,000 ML IV ONE (01:43)
[2017-10-26] MEDS ORDERED: SODIUM BICARBONATE 8.4% INJ ADULT ONE (01:43)
[2017-10-26] MEDS ORDERED: NS 1000 ML 1,000 ML ONE (01:45)
[2017-10-26 01:50] LABS: BLOOD UREA NITROGEN 5 mg/dL (7-18); CALCIUM 8.4 mg/dL (8.5-10.1); CHLORIDE 107 mmol/L (98-107); COR NA(FOR HYPERGLY) 144 mmol/L (136-145); CREATININE 0.91 mg/dL (0.70-1.30); SODIUM 143 mmol/L (136-145); eGFR NON BLACK RACES > 60 (>60)
[2017-10-26] MEDS: NS IV SCH ×6 (01:50→20:45)
[2017-10-26] MEDS: KCL IV SCH ×6 (01:50→20:45)
[2017-10-26] MEDS: SODIUM BICARBONATE 8.4% IV SCH ×6 (01:50→20:45)
[2017-10-26 02:25] LABS: CARBON DIOXIDE 15.1 mmol/L (21-32)
[2017-10-26] MEDS: DILAUDID INJ IVP PRN ×5 (02:56→20:44)
[2017-10-26 04:38] LABS: BLOOD UREA NITROGEN 5 mg/dL (7-18); CALCIUM 8.3 mg/dL (8.5-10.1); CARBON DIOXIDE 19.2 mmol/L (21-32); CHLORIDE 105 mmol/L (98-107); COR NA(FOR HYPERGLY) 142 mmol/L (136-145); CREATININE 0.99 mg/dL (0.70-1.30); SODIUM 141 mmol/L (136-145); eGFR NON BLACK RACES > 60 (>60)
[2017-10-26 04:39] LABS: BASOPHILS % (AUTO) 0.1 % (0.2-1.0); HEMATOCRIT 32.8 % (42.0-54.0); HEMOGLOBIN 11.3 g/dL (13.5-18.0); LYMPHOCYTES # (AUTO) 2.5 X10^3/uL (1.3-2.9); MEAN CORPUSCULAR HEMOGLOBIN 28.3 pg (27.0-34.0); MEAN CORPUSCULAR HGB CONC 34.4 g/dL (33.0-35.0); MEAN CORPUSCULAR VOLUME 82.4 fL (80.0-100.0); MEAN PLATELET VOLUME 9.1 fL (7.4-11.0); MONOCYTES # (AUTO) 1.2 x10^3/uL (0.3-0.8); MONOCYTES % (AUTO) 5.2 % (0.0-13.0); NEUTROPHILS # (AUTO) 18.6 x10^3/uL (2.2-4.8); NEUTROPHILS % (AUTO) 83.7 % (42.0-75.0); PLATELET COUNT 164 X10^3/uL (150.0-450.0); RED BLOOD COUNT 3.97 X10^6/uL (4.7-6.0); WHITE BLOOD COUNT 22.3 X10^3/uL (3.6-10.0)
[2017-10-26 04:48] LABS: BAND NEUTROPHILS % 1 % (0-10); PLATELET MORPHOLOGY COMMENT NORMAL (NORMAL)
[2017-10-26 06:17] LABS: ABG BASE EXCESS -3.4 mmol/L (-2.0-2.0)
[2017-10-26 06:19] LABS: ABG HCO3 17.1 mmol/L (22-26)
[2017-10-26] MEDS: REGLAN TAB 5 MG PO SCH ×3 (06:20→16:23)
[2017-10-26] MEDS: NEURONTIN CAP 100 MG PO SCH ×3 (06:20→22:10)
[2017-10-26] MEDS: K-RIDER 10 MEQ/NS 100 ML 10 MEQ/100 ML BAG IV PRN ×4 (06:41→09:33)
[2017-10-26] MEDS ORDERED: FORTAZ or TAZICEF VIAL INJ 1 G in NS 100 ML IV + SPIKE MINIBAG* 100 ML IV SCH (08:00)
[2017-10-26] MEDS: PROTONIX INJ 40 MG VIAL IVP SCH (08:24)
[2017-10-26] MEDS: MILK OF MAGNESIA PO SCH ×4 (08:24→21:00)
[2017-10-26] MEDS: COLACE CAP 100 MG PO SCH (08:24)
[2017-10-26 08:25] LABS: BLOOD UREA NITROGEN 5 mg/dL (7-18); CALCIUM 8.4 mg/dL (8.5-10.1); CARBON DIOXIDE 20.8 mmol/L (21-32); CHLORIDE 104 mmol/L (98-107); COR NA(FOR HYPERGLY) 143 mmol/L (136-145); CREATININE 0.98 mg/dL (0.70-1.30); SODIUM 141 mmol/L (136-145); eGFR NON BLACK RACES > 60 (>60)
[2017-10-26] MEDS: LEVAQUIN PREMIX IV 750 MG 750 MG/150 ML BAG IV SCH (08:39)
--- NOTE | 2017-10-26 09:25 | RAD ---
HISTORY: Dyspnea, amphetamine MP use Study: Single-view chest Comparison: October 24, 2017 Findings: There is a right-sided Port-A-Cath terminating in the SVC. The patient is rotated. The cardiac silho uette is unremarkable. The lungs are clear without focal mass or consolidation. There is no effusio n or pneumothorax. The bony thorax is grossly unremarkable. IMPRESSION: No acute cardiopulmonary disease. Reported By:
[2017-10-26 10:15] LABS: CHLORIDE 118 mmol/L (98-107)
[2017-10-26] MEDS: PHENERGAN INJ 25 MG IV PRN ×3 (10:44→17:56)
[2017-10-26] MEDS ORDERED: DULCOLAX SUPPOSITORY 10 MG ONE (18:35)
[2017-10-26] MEDS: DULCOLAX SUPPOSITORY 10 MG RECTAL SCH (20:07)
[2017-10-26] MEDS: KLONOPIN TAB 1 MG PO SCH (20:44)
[2017-10-27] MEDS: DILAUDID INJ IVP PRN ×4 (01:10→20:25)
[2017-10-27] MEDS ORDERED: SODIUM BICARBONATE 8.4% INJ ADULT ONE (03:46)
[2017-10-27] MEDS ORDERED: NS 1/2 + KCL 20 MEQ/L 1,000 ML IV ONE ×2 (03:48→17:37)
[2017-10-27] MEDS: KCL IV SCH ×6 (05:02→17:54)
[2017-10-27] MEDS: SODIUM BICARBONATE 8.4% IV SCH ×6 (05:02→17:54)
[2017-10-27] MEDS: NS IV SCH ×6 (05:02→17:54)
[2017-10-27 05:21] LABS: SERUM ACETONE SMALL (NEGATIVE)
[2017-10-27 05:23] LABS: BASOPHILS % (AUTO) 0.2 % (0.2-1.0); EOSINOPHILS % (AUTO) 0.1 % (0.9-2.9); HEMATOCRIT 34.5 % (42.0-54.0); HEMOGLOBIN 12.2 g/dL (13.5-18.0); LYMPHOCYTES # (AUTO) 3.5 X10^3/uL (1.3-2.9); LYMPHOCYTES % (AUTO) 24.2 % (21.0-51.0); MEAN CORPUSCULAR HEMOGLOBIN 28.6 pg (27.0-34.0); MEAN CORPUSCULAR HGB CONC 35.3 g/dL (33.0-35.0); MEAN CORPUSCULAR VOLUME 81.1 fL (80.0-100.0); MEAN PLATELET VOLUME 9.1 fL (7.4-11.0); MONOCYTES % (AUTO) 7.1 % (0.0-13.0); NEUTROPHILS # (AUTO) 9.8 x10^3/uL (2.2-4.8); NEUTROPHILS % (AUTO) 68.4 % (42.0-75.0); PLATELET COUNT 164 X10^3/uL (150.0-450.0); RED BLOOD COUNT 4.25 X10^6/uL (4.7-6.0); RED CELL DISTRIBUTION WIDTH 13.5 % (11.6-16.5); WHITE BLOOD COUNT 14.4 X10^3/uL (3.6-10.0)
[2017-10-27 05:24] LABS: ALANINE AMINOTRANSFERASE 28 Units/L (12-78); ALBUMIN 3.1 g/dL (3.4-5.0); ALKALINE PHOSPHATASE 77 Units/L (46-116); ASPARTATE AMINO TRANSFERASE 55 Units/L (15-37); BLOOD UREA NITROGEN 4 mg/dL (7-18); CALCIUM 8.5 mg/dL (8.5-10.1); CHLORIDE 101 mmol/L (98-107); COR CA(FOR HYPOALB) 9.2 mg/dL (8.5-10.1); COR NA(FOR HYPERGLY) 145 mmol/L (136-145); CREATININE 0.79 mg/dL (0.70-1.30); SODIUM 144 mmol/L (136-145); TOTAL PROTEIN 6.3 g/dL (6.4-8.2); eGFR NON BLACK RACES > 60 (>60)
[2017-10-27] MEDS: NEURONTIN CAP 100 MG PO SCH ×3 (05:52→21:29)
[2017-10-27] MEDS: REGLAN TAB 5 MG PO SCH ×4 (05:52→17:53)
--- NOTE | 2017-10-27 08:07 | PCM.PROG ---
Progress Note - Progress Note for Day of Date of Exam: 10/25/17 - Subjective Subjective: WAS ADMITTED FOR METABOLIC ACIDOSIS AND DKA. TODAY, HE IS LYING IN BED WITH EYES OPEN ON MORNING ROUNDS. HE IS NOTED TO BE PALE IN COLOR. HE COMPLAINS OF SHORTNESS OF BREATH, NAUSEA, AND GENERALIZED PAIN. ON EXAMINATION, HEART IS REGULAR IN RATE AND RHYTHM. BILATERAL LUNGS ARE NOTED WITH DIMINISHED LUNG SOUNDS THROUGHOUT. ABDOMEN IS FLAT, SOFT, AND NOTED WITH MILD, DIFFUSE TENDERNESS. HYPERACTIVE BOWEL SOUNDS ARE NOTED IN ALL QUADRANTS. HIS VITALS TODAY ARE 98.5-98-21-100%-115/72. LABS WERE OBTAINED. ABNORMAL LAB VALUES INCLUDE THE FOLLOWING: WBC 23.6, RBC 4.09, HGB 11.6, HCT 34.6, POTASSIUM 3.4, CARBON DIOXIDE 14.5, BUN 5, GLUCOSE 173, ACETONES LARGE. ABG REVEALED PH 7.370, PC02 23, P02 132, HC03 13.3, 02 99, BASE EXCESS -10.1. HE CONTINUES TO RECEIVE 2 AMPS SODIUM BICARBONATE IN EACH LITER OF IV FLUIDS. TODAY, WE WILL START DILAUDID 1MG IV Q4HR PRN. HE USES METHADONE AT HOME, BUT REPORTS THAT HIS LAST DOSE WAS FOUR DAYS AGO. WE WILL ALSO START ZOFRAN COCKTAIL Q8H PRN. OTHERWISE, WE WILL FOLLOW UP WITH AM LABS AND CONTINUE TO MONITOR PATIENT. - Past Medical Family Social History Past Med/Fam/Surg Hx: No changes since H&P Allergies: Allergies No Known Drug Allergies Allergy (Verified 10/07/17 10:20) - Review of Systems ROS: No change since H&P - Vital Signs and I&O's Vital Signs: Temperature 98.6 F Pulse Rate [Left Brachial] 108 Pulse Rate 116 Respiratory Rate 722 Blood Pressure [Left Arm] 131/96 Blood Pressure [Right Arm] 165/93 Blood Pressure 130/86 O2 Sat by Pulse Oximetry 99 Intake and Output: Intake & Output 10/24/17 10/25/17 10/26/17 10/27/17 11:59 11:59 11:59 11:59 Intake Total 2500 / 2500 61194 / 28200 2903 / 2903 5684 / 5684 Output Total 750 / 750 6400 / 6400 5025 / 5025 3450 / 3450 Balance 1750 / 1750 4647 / 4647 -2122 / -2121 - Physical Exam Oriented: Normal Eyes: Normal Ear: Normal Nose: Normal Throat: Normal Respiratory: Generalized, Diminished Cardiovascular: Normal. negative: S3, S4, Murmur, Edema : Normal Auscultation: Bowel Sounds: Increased Palpation: Normal Tenderness: Diffuse, Mild. negative: Rebound, Guarding, Rigidity Skin: Normal Musculoskeletal: Normal Psychiatric: Normal Mood Description: Calm Affect: Normal Speech Pattern: Clear, Appropriate - Laboratory and Diagnostics Result Diagrams: 10/27/17 04:59 10/27/17 04:59 Labs: 10/24/17 13:47 Blood Blood Culture - Preliminary 10/24/17 14:13 Blood Blood Culture - Preliminary Laboratory WBC 14.4 X10^3/uL (3.6-10.0) H 10/27/17 04:59 RBC 4.25 X10^6/uL (4.7-6.0) L 10/27/17 04:59 Hgb 12.2 g/dL (13.5-18.0) L 10/27/17 04:59 Hct 34.5 % (42.0-54.0) L 10/27/17 04:59 MCV 81.1 fL (80.0-100.0) 10/27/17 04:59 MCH 28.6 pg (27.0-34.0) 10/27/17 04:59 MCHC 35.3 g/dL (33.0-35.0) H 10/27/17 04:59 RDW 13.5 % (11.6-16.5) 10/27/17 04:59 Plt Count 164 X10^3/uL (150.0-450.0) 10/27/17 04:59 Plt Count Comment Adequate (ADEQUATE) 10/26/17 04:10 MPV 9.1 fL (7.4-11.0) 10/27/17 04:59 Neut % (Auto) 68.4 % (42.0-75.0) 10/27/17 04:59 Lymph % (Auto) 24.2 % (21.0-51.0) 10/27/17 04:59 [place] % (Auto) 7.1 % (0.0-13.0) 10/27/17 04:59 Eos % (Auto) 0.1 % (0.9-2.9) L 10/27/17 04:59 Baso % (Auto) 0.2 % (0.2-1.0) 10/27/17 04:59 Neut # (Auto) 9.8 x10^3/uL (2.2-4.8) H 10/27/17 04:59 Lymph # (Auto) 3.5 X10^3/uL (1.3-2.9) H 10/27/17 04:59 [place] # (Auto) 1.0 x10^3/uL (0.3-0.8) H 10/27/17 04:59 Eos # (Auto) 0.0 x10^3/uL (0.0-0.2) 10/27/17 04:59 Baso # (Auto) 0.0 X10^3/uL (0.0-0.1) 10/27/17 04:59 Absolute Nucleated RBC 0.0 /100WBC 10/27/17 04:59 Total Counted 100 10/26/17 04:10 Neutrophils % (Manual) 86 % (39-76) H 10/26/17 04:10 Band Neutrophils % 1 % (0-10) 10/26/17 04:10 Lymphocytes % (Manual) 9 % (13-43) L 10/26/17 04:10 Monocytes % (Manual) 4 % (4-9) 10/26/17 04:10 Plt Morphology Comment Normal (NORMAL) 10/26/17 04:10 RBC Morphology Normal (NORMAL) 10/26/17 04:10 INR Target Range - 10/24/17 00:10 INR 1.08 (0.8-1.3) 10/24/17 00:10 Sample Site Lbra 10/26/17 05:54 ABG pH 7.540 (7.35-7.45) H 10/26/17 05:54 ABG pCO2 20.0 mmHg (35.0-45.0) L 10/26/17 05:54 ABG pO2 160.0 mmHg (80.0-100.0) H 10/26/17 05:54 ABG HCO3 17.1 mmol/L (22-26) L* 10/26/17 05:54 ABG O2 Saturation 100.0 % (90-100) 10/26/17 05:54 ABG Base Excess -3.4 mmol/L (-2.0-2.0) L 10/26/17 05:54 Geoff Test Na 10/26/17 05:54 A-a Gradient 15.0 mmHg 10/26/17 05:54 FiO2 28.000 10/26/17 05:54 Blood Gas Comments Marva abg well-mtf 10/26/17 05:54 Sodium 144 mmol/L (136-145) 10/27/17 04:59 Corrected Sodium 145 mmol/L (136-145) 10/27/17 04:59 Potassium 2.6 mmol/L (3.5-5.1) L* 10/27/17 04:59 Chloride 101 mmol/L (98-107) 10/27/17 04:59 Carbon Dioxide 35.0 mmol/L (21-32) H 10/27/17 04:59 BUN 4 mg/dL (7-18) L 10/27/17 04:59 Creatinine 0.79 mg/dL (0.70-1.30) 10/27/17 04:59 Est GFR (MDRD) Af Amer > 60 (>60) 10/27/17 04:59 Est GFR (MDRD) Non-Af > 60 (>60) 10/27/17 04:59 Glucose 125 mg/dL (65-99) H 10/27/17 04:59 POC Glucose (mg/dL) 109 mg/dL (65-99) H 10/27/17 06:44 Lactic Acid 2.6 mmol/L (0.4-2.0) H 10/24/17 14:13 Calcium 8.5 mg/dL (8.5-10.1) 10/27/17 04:59 Corrected Calcium 9.2 mg/dL (8.5-10.1) 10/27/17 04:59 Magnesium 2.1 mg/dL (1.7-2.9) 10/27/17 04:59 Total Bilirubin 1.10 mg/dL (0.2-1.0) H 10/27/17 04:59 AST 55 Units/L (15-37) H 10/27/17 04:59 ALT 28 Units/L (12-78) 10/27/17 04:59 Alkaline Phosphatase 77 Units/L (46-116) 10/27/17 04:59 Creatine Kinase 355 Units/L (39-308) H 10/24/17 13:47 CK-MB (CK-2) 2.7 ng/mL (0-4.0) 10/24/17 13:47 CK/CKMB % Calc 0.8 % (<4) 10/24/17 13:47 Troponin I 0.06 ng/mL (0-1.5) 10/24/17 13:47 Total Protein 6.3 g/dL (6.4-8.2) L 10/27/17 04:59 Albumin 3.1 g/dL (3.4-5.0) L 10/27/17 04:59 Globulin 3.2 g/dL (2.5-4.5) 10/27/17 04:59 Albumin/Globulin Ratio 1.0 Ratio (1.1-2.1) L 10/27/17 04:59 Amylase 29 Units/L (25-115) 10/24/17 00:10 Lipase 45 Units/L (73-393) L 10/24/17 00:10 Specimen Type Catherized urine 10/24/17 08:59 Urine Color Yellow (YELLOW) 10/24/17 08:59 Urine Appearance Hazy (CLEAR) 10/24/17 08:59 Urine pH 5.0 (5.0 - 8.0) 10/24/17 08:59 Ur Specific [place] 1.015 (1.000-1.030) 10/24/17 08:59 Urine Protein 2+ (NEGATIVE) 10/24/17 08:59 Urine Glucose (UA) 4+ (NEGATIVE) 10/24/17 08:59 Urine Ketones 4+ (NEGATIVE) 10/24/17 08:59 Urine Occult Blood 4+ (NEGATIVE) 10/24/17 08:59 Urine Nitrite Negative (NEGATIVE) 10/24/17 08:59 Urine Bilirubin Negative (NEGATIVE) 10/24/17 08:59 Urine Urobilinogen Normal (NORMAL) 10/24/17 08:59 Ur Leukocyte Esterase Negative (NEGATIVE) 10/24/17 08:59 Urine RBC 0-2 /HPF (NONE SEEN) 10/24/17 08:59 Urine WBC None seen /HPF (NONE SEEN) 10/24/17 08:59 Ur Squamous Epith Cells Negative /HPF (NEGATIVE) 10/24/17 08:59 Urine Bacteria Negative /HPF (NEGATIVE) 10/24/17 08:59 Urine Mucus Few /HPF (NEGATIVE) 10/24/17 08:59 Ur Culture Indicated? No/not indicated 10/24/17 08:59 Urine Opiates Screen Negative (NEG=<300) 10/24/17 02:54 Urine Methadone Screen Positive (NEG=<300) 10/24/17 02:54 Ur Barbiturates Screen Negative (NEG=<200) 10/24/17 02:54 Ur Phencyclidine Scrn Negative (NEG=<25) 10/24/17 02:54 Ur Amphetamines Screen Positive (NEG=<1000) 10/24/17 02:54 U Benzodiazepines Scrn Positive (NEG=<200) 10/24/17 02:54 Urine Cocaine Screen Negative (NEG=<300) 10/24/17 02:54 U Marijuana (THC) Screen Negative (NEG=<50) 10/24/17 02:54 Acetone, Semi-Quant Small (NEGATIVE) H 10/27/17 04:59 - Plan (1) DKA (diabetic ketoacidoses) Status: Acute Qualifiers: Diabetes mellitus type: type 1 Diabetes mellitus complication detail: without coma Qualified Code(s): E10.10 - Type 1 diabetes mellitus with ketoacidosis without coma Plan: ADMIT, IV FLUIDS, MONITOR LABS AND ABG, CONTINUE TO MONITOR (2) Metabolic acidemia Status: Acute Plan: NORMAL SALINE WITH SODIUM BICARB, CONTINUE TO MONITOR LABS AND ABG (3) Nausea & vomiting Status: Acute Qualifiers: Vomiting type: unspecified Vomiting Intractability: intractable Qualified Code(s): R11.2 - Nausea with vomiting, unspecified Plan: ZOFRAN, IV FLUIDS, CONTINUE TO MONITOR
[2017-10-27] MEDS: LEVAQUIN PREMIX IV 750 MG 750 MG/150 ML BAG IV SCH (08:11)
[2017-10-27] MEDS: PROTONIX INJ 40 MG VIAL IVP SCH (08:15)
[2017-10-27] MEDS: MILK OF MAGNESIA PO SCH ×4 (09:25→21:28)
[2017-10-27] MEDS: COLACE CAP 100 MG PO SCH (09:25)
[2017-10-27] MEDS: DULCOLAX SUPPOSITORY 10 MG RECTAL SCH ×2 (09:26→21:27)
[2017-10-27] MEDS ORDERED: NS 1000 ML 1,000 ML ONE (10:42)
[2017-10-27] MEDS: NS 1000 ML 1,000 ML IV SCH (10:46)
[2017-10-27 13:04] LABS: ALANINE AMINOTRANSFERASE 53 Units/L (12-78); ALBUMIN 2.9 g/dL (3.4-5.0); ALKALINE PHOSPHATASE 80 Units/L (46-116); ASPARTATE AMINO TRANSFERASE 112 Units/L (15-37); BLOOD UREA NITROGEN 4 mg/dL (7-18); CALCIUM 8.3 mg/dL (8.5-10.1); CARBON DIOXIDE 32.9 mmol/L (21-32); CHLORIDE 103 mmol/L (98-107); COR CA(FOR HYPOALB) 9.2 mg/dL (8.5-10.1); COR NA(FOR HYPERGLY) 142 mmol/L (136-145); CREATININE 0.72 mg/dL (0.70-1.30); SODIUM 141 mmol/L (136-145); TOTAL PROTEIN 6.1 g/dL (6.4-8.2); eGFR NON BLACK RACES > 60 (>60)
[2017-10-27] MEDS: OTBSDRIP XX SCH ×6 (14:03→22:00)
[2017-10-27 17:42] LABS: ABG ALLEN TEST POS
[2017-10-27] MEDS: NS 1/2 + KCL 20 MEQ/L 1,000 ML IV SCH (17:55)
[2017-10-27] MEDS: KLONOPIN TAB 1 MG PO SCH (20:24)
[2017-10-28] MEDS: OTBSDRIP XX SCH ×8 (00:07→14:03)
[2017-10-28] MEDS: NS 1/2 + KCL 20 MEQ/L 1,000 ML IV SCH ×3 (00:42→08:50)
[2017-10-28] MEDS: DILAUDID INJ IVP PRN ×4 (00:43→09:33)
[2017-10-28] MEDS: NEURONTIN CAP 100 MG PO SCH ×2 (05:56→13:17)
[2017-10-28] MEDS: REGLAN TAB 5 MG PO SCH ×2 (05:56→12:11)
[2017-10-28 06:05] LABS: BASOPHILS % (AUTO) 0.2 % (0.2-1.0); EOSINOPHILS % (AUTO) 0.1 % (0.9-2.9); HEMATOCRIT 34.5 % (42.0-54.0); LYMPHOCYTES # (AUTO) 3.2 X10^3/uL (1.3-2.9); LYMPHOCYTES % (AUTO) 37.1 % (21.0-51.0); MEAN CORPUSCULAR HGB CONC 34.9 g/dL (33.0-35.0); MEAN CORPUSCULAR VOLUME 83.1 fL (80.0-100.0); MEAN PLATELET VOLUME 9.2 fL (7.4-11.0); MONOCYTES # (AUTO) 0.8 x10^3/uL (0.3-0.8); MONOCYTES % (AUTO) 8.8 % (0.0-13.0); NEUTROPHILS # (AUTO) 4.7 x10^3/uL (2.2-4.8); NEUTROPHILS % (AUTO) 53.8 % (42.0-75.0); PLATELET COUNT 146 X10^3/uL (150.0-450.0); RED BLOOD COUNT 4.16 X10^6/uL (4.7-6.0); RED CELL DISTRIBUTION WIDTH 13.3 % (11.6-16.5); WHITE BLOOD COUNT 8.7 X10^3/uL (3.6-10.0)
[2017-10-28 06:22] LABS: ALANINE AMINOTRANSFERASE 39 Units/L (12-78); ALKALINE PHOSPHATASE 78 Units/L (46-116); ASPARTATE AMINO TRANSFERASE 63 Units/L (15-37); BLOOD UREA NITROGEN 6 mg/dL (7-18); CALCIUM 8.4 mg/dL (8.5-10.1); CARBON DIOXIDE 27.9 mmol/L (21-32); CHLORIDE 106 mmol/L (98-107); COR CA(FOR HYPOALB) 9.2 mg/dL (8.5-10.1); COR NA(FOR HYPERGLY) 143 mmol/L (136-145); CREATININE 0.58 mg/dL (0.70-1.30); SODIUM 141 mmol/L (136-145); TOTAL PROTEIN 6.2 g/dL (6.4-8.2); eGFR NON BLACK RACES > 60 (>60)
[2017-10-28] MEDS: COLACE CAP 100 MG PO SCH (08:35)
[2017-10-28] MEDS: DULCOLAX SUPPOSITORY 10 MG RECTAL SCH (08:35)
[2017-10-28] MEDS: PROTONIX INJ 40 MG VIAL IVP SCH (08:36)
[2017-10-28] MEDS: LEVAQUIN PREMIX IV 750 MG 750 MG/150 ML BAG IV SCH (08:36)
[2017-10-28] MEDS: MILK OF MAGNESIA PO SCH ×2 (08:36→13:16)
[2017-10-28] MEDS: NS 1000 ML 1,000 ML IV SCH (12:10)
[2017-10-28] MEDS ORDERED: DILAUDID INJ ONE (13:12)
[2017-10-28 15:13] VITALS: BP 122/90
[2017-10-28] MEDS ORDERED: LEVAQUIN TAB 500 MG ONE (16:00)
--- NOTE | 2017-11-20 12:01 | DR.CARTERD ---
- Discharge Summary for: Discharge Summary for Date of:: 10/28/17 - Admission Date Date of Admission: 10/24/17 - Admission Diagnoses Admission Diagnosis: (1) DKA (diabetic ketoacidoses) (2) Metabolic acidemia (3) Nausea & vomiting - Discharge Date Discharge Date: 10/28/17 - Discharge Diagnoses Discharge Diagnosis: (1) DKA (diabetic ketoacidoses) (2) Metabolic acidemia (3) Nausea & vomiting - Hospital Course Hospital Course: Day one, Mr. Qureshi presented to the emergency room on 10/23/17 late in the evening with reports of abdominal pain with nausea, vomiting and diarrhea. Patient reported symptoms started three days prior and had worsened since onset. Patient noted with diffuse abdominal tenderness on palpation. Labs obtained on arrival revealed an elevated white blood cell count of 11.3 and critically high carbon dioxide of 10.8. Glucose noted to be elevated as well and patient started on an Insulin drip at 2units/hr and titrated per protocol. Acetone moderate. Medical History: Hypertension, Gerd, UTIs, DM type II, Anxiety, Depression. Abnormal Labs: WBC 11.3, Potassium 3.4, Carbon Dioxide 10.8, Glucose 337, A/G Ratio 1.0, Lipase 45, Acetone Moderate; Corrected Sodium 149, Carbon Dioxide 13.9, BUN 6, Glucose 388, 532; Creatine Kinase 355, Total Protein 4.7, Albumin 2.5. Urinalysis: Catherized, Protein 2+, Glucose 4+, Ketones 4+, Occult Blood 4+, RBC 0-2, Mucus Few. ABG: pH 7.230, pCO2 29.0, pO2 101.0, HCO3 12.1, Base Excess -14.1. Toxicology: Methadone Positive; Amphetamines Positive; Benzodiazepines Positive. Blood Cultures x2 obtained. Abdomen/Pelvis CT: Rectal fecal impaction seen. Marked distention of the urinary bladder right-sided ureteral reflux producing mild hydronephrosis. Chest X-Ray: Negative exam of the chest. EKG: Sinus Tachycardia, llty=104. Day two, patient was pale in color. He reported shortness of breath, nausea, and generalized pain. On examination, heart was regular in rate and rhythm; bilateral lungs were diminished throughout; bowel sounds hyperactive. Vitals were: 98.5-98-21-100%-115/72. Abnormal labs were: Wbc 23.6, Rbc 4.09, Hgb 11.6, Hct 34.6, Potassium 3.4, Carbon dioxide 14.5, Bun 5, Glucose 173, Acetone large. Abg revealed ph 7.370, pco2 23, po2 132, hco3 13.3, o2 99, base excess - 10.1. He continued to receive 2 amps of sodium bicarb in each liter of IV fluids. We started Dilaudid 1mg IV q4h prn. Patient used Methadone at home, but reported that his last dose was four days prior. We started Zofran cocktail q8h prn. We continued to monitor. Day three, patient continued with shortness of breath, nausea, and generalized pain. We started Fortaz and Levaquin IV due to increased Wbc of 22.3. Abnormal lab values were: Wbc 22.3, Hgb 11.3, Hct 32.8, Potassium 3.3, Carbon dioxide 20.8, Glucose 169, Calcium 8.4. Abg abnormals: ph 7.540, pco2 20.0, po2 160.0, hco3 17.1, base excess -3.4. We continued to monitor. Day four, patient was doing a little better. He reported decreasing abdominal pain along with decreasing nausea and vomiting. Abg reported hco3 34. We discontinued bicarb in IV fluids. Wbc decreased from 22.3 to 14.4. Potassium was 2.6. We added potassium to IV fluids and continued to monitor. Day five, patient reported he was feeling much better. He denied abdominal pain , nausea, or vomiting. Patient tolerating diet well. Wbc wnl at 8.7. Potassium wnl at 3.5, Glucose 162. We planned for discharge. Instructions for medications and follow up were discussed with patient and family, both voiced understanding. Patient discharged home in stable condition with family. - Discharge Medications Discharge Medications: Home Medication List clonazepam [Klonopin] 2 mg PO HS 10/24/17 [History] dextroamphetamine-amphetamine [Adderall] 20 mg PO BID 10/24/17 [History] docusate sodium 100 mg PO DAILY #30 cap 10/28/17 [Rx] polyethylene glycol 3350 [Miralax] 17 g PO DAILY #1 bottle 10/28/17 [Rx] Prescriptions: docusate sodium [place] polyethylene glycol 3350 [Miralax] Charlie [place] Home medications gabapentin 1 cap PO TID 05/02/15 alprazolam [Xanax] 2 mg PO TID PRN 02/15/16 methadone 20 mg PO Q6H PRN 02/15/16 insulin lispro [Humalog U-100 Insulin] 3 units SUBCUT .WITHMEALS 02/16/16 famotidine 20 mg PO BID #60 tab 02/21/16 insulin detemir U-100 [Levemir U-100 Insulin] 25 units SUB-Q BID 11/10/17 lisinopril 1 tab PO HS 11/10/17 - Discharge Disposition Discharge Disposition: Patient is to follow up in our office in one week.
--- NOTE | 2018-01-11 10:20 | PCM.PROG ---
Progress Note - Progress Note for Day of Date of Exam: 10/26/17 - Subjective Subjective: WAS ADMITTED FOR METABOLIC ACIDOSIS AND DKA. TODAY, HE IS LYING IN BED WITH EYES OPEN ON MORNING ROUNDS. HE AWAKENS AND RESPONDS EASILY TO VERBAL STIMULI. HE CONTINUES WITH COMPLAINTS OF SHORTNESS OF BREATH, NAUSEA, AND GENERALIZED PAIN. ON EXAMINATION, HEART IS REGULAR IN RATE AND RHYTHM. BILATERAL LUNGS ARE NOTED WITH DIMINISHED LUNG SOUNDS THROUGHOUT. ABDOMEN IS FLAT, SOFT, AND NOTED WITH MILD, DIFFUSE TENDERNESS. HYPERACTIVE BOWEL SOUNDS ARE NOTED IN ALL QUADRANTS. HIS VITALS TODAY ARE 98.6-82-20-100%-148/92. LABS WERE OBTAINED. ABNORMAL LAB VALUES INCLUDE THE FOLLOWING: WBC decreased to 22.3 , rbc 3.97, hgb 11.3, hct 32.8, potassium 3.1, carbon dioxide 19.2, bun 5, glucose 161, calcium 8.3. ABG REVEALED PH 7.540, PC02 20.0, P02 160.0, HC03 17.1 , BASE EXCESS -3.4. HE CONTINUES TO RECEIVE 2 AMPS SODIUM BICARBONATE IN EACH LITER OF IV FLUIDS. A CHEST XRAY WAS OBTAINED THIS MORNING AND REVEALED: There is a right-sided Port-A-Cath terminating in the SVC. The patient is rotated. The cardiac silhouette is unremarkable. The lungs are clear without focal mass or consolidation. There is no effusion or pneumothorax. The bony thorax is grossly unremarkable. TODAY, WE WILL START LEVAQUIN 750MG IV DAILY. OTHERWISE, WE WILL CONTINUE WITH CURRENT PLAN OF CARE. WE WILL FOLLOW UP WITH AM LABS AND CONTINUE TO MONITOR PATIENT. - Past Medical Family Social History Past Med/Fam/Surg Hx: No changes since H&P Allergies: Allergies No Known Drug Allergies Allergy (Verified 10/07/17 10:20) - Review of Systems ROS: No change since H&P - Vital Signs and I&O's Vital Signs: Temperature 98.4 F Pulse Rate [Left Brachial] 83 Pulse Rate 116 Respiratory Rate 18 Blood Pressure [Left Arm] 122/90 Blood Pressure [Right Arm] 165/93 Blood Pressure 130/86 O2 Sat by Pulse Oximetry 99 - Physical Exam Oriented: Normal Eyes: Normal Ear: Normal Nose: Normal Throat: Normal Respiratory: Generalized, Diminished Cardiovascular: Normal. negative: S3, S4, Murmur, Edema : Normal Auscultation: Bowel Sounds: Increased Palpation: Normal Tenderness: Diffuse, Mild. negative: Rebound, Guarding, Rigidity Skin: Normal Musculoskeletal: Normal Psychiatric: Normal Mood Description: Calm Affect: Normal Speech Pattern: Clear, Appropriate - Laboratory and Diagnostics Result Diagrams: 10/28/17 05:50 10/28/17 05:50 Labs: 10/24/17 13:47 Blood Blood Culture - Final 10/24/17 14:13 Blood Blood Culture - Final Laboratory WBC 8.7 X10^3/uL (3.6-10.0) 10/28/17 05:50 RBC 4.16 X10^6/uL (4.7-6.0) L 10/28/17 05:50 Hgb 12.0 g/dL (13.5-18.0) L 10/28/17 05:50 Hct 34.5 % (42.0-54.0) L 10/28/17 05:50 MCV 83.1 fL (80.0-100.0) 10/28/17 05:50 MCH 29.0 pg (27.0-34.0) 10/28/17 05:50 MCHC 34.9 g/dL (33.0-35.0) 10/28/17 05:50 RDW 13.3 % (11.6-16.5) 10/28/17 05:50 Plt Count 146 X10^3/uL (150.0-450.0) L 10/28/17 05:50 Plt Count Comment Adequate (ADEQUATE) 10/26/17 04:10 MPV 9.2 fL (7.4-11.0) 10/28/17 05:50 Neut % (Auto) 53.8 % (42.0-75.0) 10/28/17 05:50 Lymph % (Auto) 37.1 % (21.0-51.0) 10/28/17 05:50 [place] % (Auto) 8.8 % (0.0-13.0) 10/28/17 05:50 Eos % (Auto) 0.1 % (0.9-2.9) L 10/28/17 05:50 Baso % (Auto) 0.2 % (0.2-1.0) 10/28/17 05:50 Neut # (Auto) 4.7 x10^3/uL (2.2-4.8) 10/28/17 05:50 Lymph # (Auto) 3.2 X10^3/uL (1.3-2.9) H 10/28/17 05:50 [place] # (Auto) 0.8 x10^3/uL (0.3-0.8) 10/28/17 05:50 Eos # (Auto) 0.0 x10^3/uL (0.0-0.2) 10/28/17 05:50 Baso # (Auto) 0.0 X10^3/uL (0.0-0.1) 10/28/17 05:50 Absolute Nucleated RBC 0.1 /100WBC 10/28/17 05:50 Total Counted 100 10/26/17 04:10 Neutrophils % (Manual) 86 % (39-76) H 10/26/17 04:10 Band Neutrophils % 1 % (0-10) 10/26/17 04:10 Lymphocytes % (Manual) 9 % (13-43) L 10/26/17 04:10 Monocytes % (Manual) 4 % (4-9) 10/26/17 04:10 Plt Morphology Comment Normal (NORMAL) 10/26/17 04:10 RBC Morphology Normal (NORMAL) 10/26/17 04:10 INR Target Range - 10/24/17 00:10 INR 1.08 (0.8-1.3) 10/24/17 00:10 Sample Site Rr 10/27/17 17:36 ABG pH 7.560 (7.35-7.45) H* 10/27/17 17:36 ABG pCO2 38.0 mmHg (35.0-45.0) 10/27/17 17:36 ABG pO2 83.0 mmHg (80.0-100.0) 10/27/17 17:36 ABG HCO3 34.0 mmol/L (22-26) H* 10/27/17 17:36 ABG O2 Saturation 97.0 % (90-100) 10/27/17 17:36 ABG Base Excess 11.0 mmol/L (-2.0-2.0) H 10/27/17 17:36 Geoff Test Pos 10/27/17 17:36 A-a Gradient 19.0 mmHg 10/27/17 17:36 FiO2 21.000 10/27/17 17:36 Blood Gas Comments Pt reece well. cdn 10/27/17 17:36 Sodium 141 mmol/L (136-145) 10/28/17 05:50 Corrected Sodium 143 mmol/L (136-145) 10/28/17 05:50 Potassium 3.4 mmol/L (3.5-5.1) L 10/28/17 05:50 Chloride 106 mmol/L (98-107) 10/28/17 05:50 Carbon Dioxide 27.9 mmol/L (21-32) 10/28/17 05:50 BUN 6 mg/dL (7-18) L 10/28/17 05:50 Creatinine 0.58 mg/dL (0.70-1.30) L 10/28/17 05:50 Est GFR (MDRD) Af Amer > 60 (>60) 10/28/17 05:50 Est GFR (MDRD) Non-Af > 60 (>60) 10/28/17 05:50 Glucose 165 mg/dL (65-99) H 10/28/17 05:50 POC Glucose (mg/dL) 187 mg/dL (65-99) H 10/28/17 14:02 Lactic Acid 2.6 mmol/L (0.4-2.0) H 10/24/17 14:13 Calcium 8.4 mg/dL (8.5-10.1) L 10/28/17 05:50 Corrected Calcium 9.2 mg/dL (8.5-10.1) 10/28/17 05:50 Magnesium 2.1 mg/dL (1.7-2.9) 10/27/17 04:59 Total Bilirubin 0.70 mg/dL (0.2-1.0) 10/28/17 05:50 AST 63 Units/L (15-37) H 10/28/17 05:50 ALT 39 Units/L (12-78) 10/28/17 05:50 Alkaline Phosphatase 78 Units/L (46-116) 10/28/17 05:50 Creatine Kinase 355 Units/L (39-308) H 10/24/17 13:47 CK-MB (CK-2) 2.7 ng/mL (0-4.0) 10/24/17 13:47 CK/CKMB % Calc 0.8 % (<4) 10/24/17 13:47 Troponin I 0.06 ng/mL (0-1.5) 10/24/17 13:47 Total Protein 6.2 g/dL (6.4-8.2) L 10/28/17 05:50 Albumin 3.0 g/dL (3.4-5.0) L 10/28/17 05:50 Globulin 3.2 g/dL (2.5-4.5) 10/28/17 05:50 Albumin/Globulin Ratio 0.9 Ratio (1.1-2.1) L 10/28/17 05:50 Amylase 29 Units/L (25-115) 10/24/17 00:10 Lipase 45 Units/L (73-393) L 10/24/17 00:10 Specimen Type Catherized urine 10/24/17 08:59 Urine Color Yellow (YELLOW) 10/24/17 08:59 Urine Appearance Hazy (CLEAR) 10/24/17 08:59 Urine pH 5.0 (5.0 - 8.0) 10/24/17 08:59 Ur Specific [place] 1.015 (1.000-1.030) 10/24/17 08:59 Urine Protein 2+ (NEGATIVE) 10/24/17 08:59 Urine Glucose (UA) 4+ (NEGATIVE) 10/24/17 08:59 Urine Ketones 4+ (NEGATIVE) 10/24/17 08:59 Urine Occult Blood 4+ (NEGATIVE) 10/24/17 08:59 Urine Nitrite Negative (NEGATIVE) 10/24/17 08:59 Urine Bilirubin Negative (NEGATIVE) 10/24/17 08:59 Urine Urobilinogen Normal (NORMAL) 10/24/17 08:59 Ur Leukocyte Esterase Negative (NEGATIVE) 10/24/17 08:59 Urine RBC 0-2 /HPF (NONE SEEN) 10/24/17 08:59 Urine WBC None seen /HPF (NONE SEEN) 10/24/17 08:59 Ur Squamous Epith Cells Negative /HPF (NEGATIVE) 10/24/17 08:59 Urine Bacteria Negative /HPF (NEGATIVE) 10/24/17 08:59 Urine Mucus Few /HPF (NEGATIVE) 10/24/17 08:59 Ur Culture Indicated? No/not indicated 10/24/17 08:59 Urine Opiates Screen Negative (NEG=<300) 10/24/17 02:54 Urine Methadone Screen Positive (NEG=<300) 10/24/17 02:54 Ur Barbiturates Screen Negative (NEG=<200) 10/24/17 02:54 Ur Phencyclidine Scrn Negative (NEG=<25) 10/24/17 02:54 Ur Amphetamines Screen Positive (NEG=<1000) 10/24/17 02:54 U Benzodiazepines Scrn Positive (NEG=<200) 10/24/17 02:54 Urine Cocaine Screen Negative (NEG=<300) 10/24/17 02:54 U Marijuana (THC) Screen Negative (NEG=<50) 10/24/17 02:54 Acetone, Semi-Quant Small (NEGATIVE) H 10/27/17 04:59 - Plan (1) DKA (diabetic ketoacidoses) Status: Acute Qualifiers: Plan: ADMIT, IV FLUIDS, MONITOR LABS AND ABG, CONTINUE TO MONITOR (2) Metabolic acidemia Status: Inactive Plan: NORMAL SALINE WITH SODIUM BICARB, CONTINUE TO MONITOR LABS AND ABG (3) Leukocytosis Status: Acute Qualifiers: Leukocytosis type: unspecified Qualified Code(s): D72.829 - Elevated white blood cell count, unspecified Plan: LEVAQUIN 750MG IV DAILY, CONTINUE TO MONITOR (4) Nausea & vomiting Status: Inactive Qualifiers: Vomiting type: unspecified Vomiting Intractability: intractable Qualified Code(s): R11.2 - Nausea with vomiting, unspecified Plan: ZOFRAN, IV FLUIDS, CONTINUE TO MONITOR
--- NOTE | 2018-01-11 10:32 | PCM.PROG ---
Progress Note - Progress Note for Day of Date of Exam: 10/27/17 - Subjective Subjective: WAS ADMITTED FOR METABOLIC ACIDOSIS AND DKA. TODAY, HE IS ALERT AND ORIENTED, LYING IN BED ON MORNNING ROUNDS. HE CONTINUES WITH COMPLAINTS OF SHORTNESS OF BREATH, NAUSEA, AND GENERALIZED PAIN, BUT REPORTS SLIGHT IMPROVEMENT SINCE YESTERDAY. ON EXAMINATION, HEART IS REGULAR IN RATE AND RHYTHM. BILATERAL LUNGS ARE NOTED WITH DIMINISHED LUNG SOUNDS THROUGHOUT. ABDOMEN IS FLAT, SOFT, AND NOTED WITH MILD, DIFFUSE TENDERNESS. HYPERACTIVE BOWEL SOUNDS ARE NOTED IN ALL QUADRANTS. HIS VITALS TODAY ARE 98.6-103-17-99%- 131/94. LABS WERE OBTAINED. ABNORMAL LAB VALUES INCLUDE THE FOLLOWING: WBC decreased to 14.4, RBC 4.25, HGB 12.2, HCT 34.5, POTASSIUM 2.6, CARBON DIOXIDE 35.0, BUN 4, GLUCOSE 125, TOTAL BILI 1.10, AST 55, TOTAL PROTEIN 6.3, ALBUMIN 3.1. ABG REVEALED: PH 7.560, PC02 38, P02 83.0, HC03 34.0, 02 SATURATION 97.0, BASE EXCESS 11.0. TODAY, DISCONTINUE THE BICARB IN HIS FLUIDS AND REPLACE HIS POTASSIUM. OTHERWISE, WE WILL CONTINUE WITH CURRENT PLAN OF CARE. WE WILL FOLLOW UP WITH AM LABS AND CONTINUE TO MONITOR PATIENT. - Past Medical Family Social History Past Med/Fam/Surg Hx: No changes since H&P Allergies: Allergies No Known Drug Allergies Allergy (Verified 10/07/17 10:20) - Review of Systems ROS: No change since H&P - Vital Signs and I&O's Vital Signs: Temperature 98.4 F Pulse Rate [Left Brachial] 83 Pulse Rate 116 Respiratory Rate 18 Blood Pressure [Left Arm] 122/90 Blood Pressure [Right Arm] 165/93 Blood Pressure 130/86 O2 Sat by Pulse Oximetry 99 - Physical Exam Oriented: Normal Eyes: Normal Ear: Normal Nose: Normal Throat: Normal Respiratory: Generalized, Diminished Cardiovascular: Normal. negative: S3, S4, Murmur, Edema : Normal Auscultation: Bowel Sounds: Increased Tenderness: Diffuse, Mild. negative: Rebound, Guarding, Rigidity Skin: Normal Musculoskeletal: Normal Psychiatric: Normal Mood Description: Calm Affect: Normal Speech Pattern: Clear, Appropriate - Laboratory and Diagnostics Result Diagrams: 10/28/17 05:50 10/28/17 05:50 Labs: 10/24/17 13:47 Blood Blood Culture - Final 10/24/17 14:13 Blood Blood Culture - Final Laboratory WBC 8.7 X10^3/uL (3.6-10.0) 10/28/17 05:50 RBC 4.16 X10^6/uL (4.7-6.0) L 10/28/17 05:50 Hgb 12.0 g/dL (13.5-18.0) L 10/28/17 05:50 Hct 34.5 % (42.0-54.0) L 10/28/17 05:50 MCV 83.1 fL (80.0-100.0) 10/28/17 05:50 MCH 29.0 pg (27.0-34.0) 10/28/17 05:50 MCHC 34.9 g/dL (33.0-35.0) 10/28/17 05:50 RDW 13.3 % (11.6-16.5) 10/28/17 05:50 Plt Count 146 X10^3/uL (150.0-450.0) L 10/28/17 05:50 Plt Count Comment Adequate (ADEQUATE) 10/26/17 04:10 MPV 9.2 fL (7.4-11.0) 10/28/17 05:50 Neut % (Auto) 53.8 % (42.0-75.0) 10/28/17 05:50 Lymph % (Auto) 37.1 % (21.0-51.0) 10/28/17 05:50 [place] % (Auto) 8.8 % (0.0-13.0) 10/28/17 05:50 Eos % (Auto) 0.1 % (0.9-2.9) L 10/28/17 05:50 Baso % (Auto) 0.2 % (0.2-1.0) 10/28/17 05:50 Neut # (Auto) 4.7 x10^3/uL (2.2-4.8) 10/28/17 05:50 Lymph # (Auto) 3.2 X10^3/uL (1.3-2.9) H 10/28/17 05:50 [place] # (Auto) 0.8 x10^3/uL (0.3-0.8) 10/28/17 05:50 Eos # (Auto) 0.0 x10^3/uL (0.0-0.2) 10/28/17 05:50 Baso # (Auto) 0.0 X10^3/uL (0.0-0.1) 10/28/17 05:50 Absolute Nucleated RBC 0.1 /100WBC 10/28/17 05:50 Total Counted 100 10/26/17 04:10 Neutrophils % (Manual) 86 % (39-76) H 10/26/17 04:10 Band Neutrophils % 1 % (0-10) 10/26/17 04:10 Lymphocytes % (Manual) 9 % (13-43) L 10/26/17 04:10 Monocytes % (Manual) 4 % (4-9) 10/26/17 04:10 Plt Morphology Comment Normal (NORMAL) 10/26/17 04:10 RBC Morphology Normal (NORMAL) 10/26/17 04:10 INR Target Range - 10/24/17 00:10 INR 1.08 (0.8-1.3) 10/24/17 00:10 Sample Site Rr 10/27/17 17:36 ABG pH 7.560 (7.35-7.45) H* 10/27/17 17:36 ABG pCO2 38.0 mmHg (35.0-45.0) 10/27/17 17:36 ABG pO2 83.0 mmHg (80.0-100.0) 10/27/17 17:36 ABG HCO3 34.0 mmol/L (22-26) H* 10/27/17 17:36 ABG O2 Saturation 97.0 % (90-100) 10/27/17 17:36 ABG Base Excess 11.0 mmol/L (-2.0-2.0) H 10/27/17 17:36 Geoff Test Pos 10/27/17 17:36 A-a Gradient 19.0 mmHg 10/27/17 17:36 FiO2 21.000 10/27/17 17:36 Blood Gas Comments Pt reece well. cdn 10/27/17 17:36 Sodium 141 mmol/L (136-145) 10/28/17 05:50 Corrected Sodium 143 mmol/L (136-145) 10/28/17 05:50 Potassium 3.4 mmol/L (3.5-5.1) L 10/28/17 05:50 Chloride 106 mmol/L (98-107) 10/28/17 05:50 Carbon Dioxide 27.9 mmol/L (21-32) 10/28/17 05:50 BUN 6 mg/dL (7-18) L 10/28/17 05:50 Creatinine 0.58 mg/dL (0.70-1.30) L 10/28/17 05:50 Est GFR (MDRD) Af Amer > 60 (>60) 10/28/17 05:50 Est GFR (MDRD) Non-Af > 60 (>60) 10/28/17 05:50 Glucose 165 mg/dL (65-99) H 10/28/17 05:50 POC Glucose (mg/dL) 187 mg/dL (65-99) H 10/28/17 14:02 Lactic Acid 2.6 mmol/L (0.4-2.0) H 10/24/17 14:13 Calcium 8.4 mg/dL (8.5-10.1) L 10/28/17 05:50 Corrected Calcium 9.2 mg/dL (8.5-10.1) 10/28/17 05:50 Magnesium 2.1 mg/dL (1.7-2.9) 10/27/17 04:59 Total Bilirubin 0.70 mg/dL (0.2-1.0) 10/28/17 05:50 AST 63 Units/L (15-37) H 10/28/17 05:50 ALT 39 Units/L (12-78) 10/28/17 05:50 Alkaline Phosphatase 78 Units/L (46-116) 10/28/17 05:50 Creatine Kinase 355 Units/L (39-308) H 10/24/17 13:47 CK-MB (CK-2) 2.7 ng/mL (0-4.0) 10/24/17 13:47 CK/CKMB % Calc 0.8 % (<4) 10/24/17 13:47 Troponin I 0.06 ng/mL (0-1.5) 10/24/17 13:47 Total Protein 6.2 g/dL (6.4-8.2) L 10/28/17 05:50 Albumin 3.0 g/dL (3.4-5.0) L 10/28/17 05:50 Globulin 3.2 g/dL (2.5-4.5) 10/28/17 05:50 Albumin/Globulin Ratio 0.9 Ratio (1.1-2.1) L 10/28/17 05:50 Amylase 29 Units/L (25-115) 10/24/17 00:10 Lipase 45 Units/L (73-393) L 10/24/17 00:10 Specimen Type Catherized urine 10/24/17 08:59 Urine Color Yellow (YELLOW) 10/24/17 08:59 Urine Appearance Hazy (CLEAR) 10/24/17 08:59 Urine pH 5.0 (5.0 - 8.0) 10/24/17 08:59 Ur Specific [place] 1.015 (1.000-1.030) 10/24/17 08:59 Urine Protein 2+ (NEGATIVE) 10/24/17 08:59 Urine Glucose (UA) 4+ (NEGATIVE) 10/24/17 08:59 Urine Ketones 4+ (NEGATIVE) 10/24/17 08:59 Urine Occult Blood 4+ (NEGATIVE) 10/24/17 08:59 Urine Nitrite Negative (NEGATIVE) 10/24/17 08:59 Urine Bilirubin Negative (NEGATIVE) 10/24/17 08:59 Urine Urobilinogen Normal (NORMAL) 10/24/17 08:59 Ur Leukocyte Esterase Negative (NEGATIVE) 10/24/17 08:59 Urine RBC 0-2 /HPF (NONE SEEN) 10/24/17 08:59 Urine WBC None seen /HPF (NONE SEEN) 10/24/17 08:59 Ur Squamous Epith Cells Negative /HPF (NEGATIVE) 10/24/17 08:59 Urine Bacteria Negative /HPF (NEGATIVE) 10/24/17 08:59 Urine Mucus Few /HPF (NEGATIVE) 10/24/17 08:59 Ur Culture Indicated? No/not indicated 10/24/17 08:59 Urine Opiates Screen Negative (NEG=<300) 10/24/17 02:54 Urine Methadone Screen Positive (NEG=<300) 10/24/17 02:54 Ur Barbiturates Screen Negative (NEG=<200) 10/24/17 02:54 Ur Phencyclidine Scrn Negative (NEG=<25) 10/24/17 02:54 Ur Amphetamines Screen Positive (NEG=<1000) 10/24/17 02:54 U Benzodiazepines Scrn Positive (NEG=<200) 10/24/17 02:54 Urine Cocaine Screen Negative (NEG=<300) 10/24/17 02:54 U Marijuana (THC) Screen Negative (NEG=<50) 10/24/17 02:54 Acetone, Semi-Quant Small (NEGATIVE) H 10/27/17 04:59 - Plan (1) DKA (diabetic ketoacidoses) Status: Acute Qualifiers: Plan: ADMIT, IV FLUIDS, MONITOR LABS AND ABG, CONTINUE TO MONITOR (2) Metabolic acidemia Status: Inactive Plan: NORMAL SALINE WITH SODIUM BICARB, CONTINUE TO MONITOR LABS AND ABG (3) Leukocytosis Status: Acute Qualifiers: Leukocytosis type: unspecified Qualified Code(s): D72.829 - Elevated white blood cell count, unspecified Plan: LEVAQUIN 750MG IV DAILY, CONTINUE TO MONITOR (4) Nausea & vomiting Status: Inactive Qualifiers: Vomiting type: unspecified Vomiting Intractability: intractable Qualified Code(s): R11.2 - Nausea with vomiting, unspecified Plan: ZOFRAN, IV FLUIDS, CONTINUE TO MONITOR
== END 2017-10-28 15:44 | disposition home or self-care (01) | DRG 639 ==
LOC: ER 23:43 → ICU 10-24 04:38
PROVIDERS: ADMIT Obstetrics & Gynecology Obstetrics; ATTEND Internal Medicine
DX: R94.31 Abnormal electrocardiogram [ECG] [EKG]; K56.41 Fecal impaction; R10.84 Generalized abdominal pain; I10 Essential (primary) hypertension; F15.10 Other stimulant abuse, uncomplicated; F41.8 Other specified anxiety disorders; R11.2 Nausea with vomiting, unspecified; E10.10 Type 1 diabetes mellitus with ketoacidosis without coma; K21.9 Gastro-esophageal reflux disease without esophagitis; R19.7 Diarrhea, unspecified; F32.89 Other specified depressive episodes
CPT/HCPCS: 36415; 36600; 71010; 71045; 74177; 80048; 80053; 80307; 81001; 82009; 82150; 82550; 82553; 82803; 82947; 83605; 83690; 83735; 84132; 84484; 85025; 85610; 87040; 93005; 96365; 96367; 96372; 96374; 96375; 99283; 99284; A4222; C9113; J7030; S0109; G0434; J0131; J0713; J0780; J1170; J1642; J1815; J1817; J1956; J2270; J2405; J2550; J3480; J3490; J7050; J7121; J8499

== ENCOUNTER 2017-11-10 04:38 | Inpatient (IN) ==
[2017-11-10] MEDS ORDERED: PHENERGAN INJ 25 MG IV ONE (04:57)
[2017-11-10] MEDS ORDERED: NS 1000 ML 1,000 ML IV ONE ×3 (05:03→16:46)
[2017-11-10] MEDS ORDERED: NS 1000 ML 1,000 ML ONE ×3 (05:06→09:23)
[2017-11-10] MEDS ORDERED: PHENERGAN INJ 25 MG ONE (05:07)
[2017-11-10 05:39] LABS: BASOPHILS # (AUTO) 0.1 X10^3/uL (0.0-0.1); BASOPHILS % (AUTO) 0.7 % (0.2-1.0); EOSINOPHILS % (AUTO) 0.2 % (0.9-2.9); HEMATOCRIT 41.7 % (42.0-54.0); HEMOGLOBIN 13.6 g/dL (13.5-18.0); LYMPHOCYTES # (AUTO) 3.1 X10^3/uL (1.3-2.9); LYMPHOCYTES % (AUTO) 16.9 % (21.0-51.0); MEAN CORPUSCULAR HGB CONC 32.5 g/dL (33.0-35.0); MEAN CORPUSCULAR VOLUME 89.2 fL (80.0-100.0); MEAN PLATELET VOLUME 8.6 fL (7.4-11.0); MONOCYTES # (AUTO) 0.9 x10^3/uL (0.3-0.8); MONOCYTES % (AUTO) 4.9 % (0.0-13.0); NEUTROPHILS # (AUTO) 14.3 x10^3/uL (2.2-4.8); NEUTROPHILS % (AUTO) 77.3 % (42.0-75.0); PLATELET COUNT 322 X10^3/uL (150.0-450.0); RED BLOOD COUNT 4.67 X10^6/uL (4.7-6.0); RED CELL DISTRIBUTION WIDTH 14.7 % (11.6-16.5); WHITE BLOOD COUNT 18.5 X10^3/uL (3.6-10.0)
[2017-11-10 06:01] LABS: ALANINE AMINOTRANSFERASE 24 Units/L (12-78); ALBUMIN 3.6 g/dL (3.4-5.0); ALKALINE PHOSPHATASE 100 Units/L (46-116); ASPARTATE AMINO TRANSFERASE 13 Units/L (15-37); BLOOD UREA NITROGEN 22 mg/dL (7-18); CALCIUM 9.7 mg/dL (8.5-10.1); CARBON DIOXIDE 17.7 mmol/L (21-32); CHLORIDE 93 mmol/L (98-107); COR NA(FOR HYPERGLY) 143 mmol/L (136-145); CREATININE 1.09 mg/dL (0.70-1.30); LIPASE 35 Units/L (73-393); SODIUM 133 mmol/L (136-145); TOTAL PROTEIN 7.6 g/dL (6.4-8.2); eGFR NON BLACK RACES > 60 (>60)
[2017-11-10] MEDS ORDERED: SODIUM BICARBONATE 8.4% INJ ADULT ONE (06:35)
[2017-11-10] MEDS ORDERED: NS 1000 ML 1,000 ML with SODIUM BICARBONATE 8.4% INJ ADULT 50 ML IV ONE ×2 (06:41)
[2017-11-10 07:06] LABS: BILIRUBIN,URINE NEGATIVE (NEGATIVE); BLOOD/HEMOGLOBIN,URINE NEGATIVE (NEGATIVE); GLUCOSE, URINE 4+ (NEGATIVE); KETONES,URINE 4+ (NEGATIVE); LEUKOCYTE ESTERASE ,URINE NEGATIVE (NEGATIVE); NITRITES,URINE NEGATIVE (NEGATIVE); PROTEIN,URINE NEGATIVE (NEGATIVE); UROBILINOGEN,URINE NORMAL (NORMAL)
[2017-11-10] MEDS ORDERED: NS 100 ML IV 100 ML IV ONE (07:06)
[2017-11-10] MEDS ORDERED: HumuLIN R ONE (07:08)
[2017-11-10 07:12] LABS: APPEARANCE,URINE CLEAR (CLEAR); COLOR,URINE YELLOW (YELLOW)
--- NOTE | 2017-11-10 07:12 | RAD ---
Examination: Abdomen with PA chest History: Abdominal pain Findings: PA chest demonstrates normal heart size with clear lungs and pleural spaces. Additional supine and upright views of abdomen indicate normal gas pattern except for fecal distentio n of the left colon. There is no evidence for bowel obstruction, perforation, mass formation or patho logic calcification. Impression: Findings consistent with constipation and possible fecal impaction. Negative otherwise. Reported By:
[2017-11-10] MEDS ORDERED: ZOFRAN INJ 4 MG VIAL IVP ONE (07:52)
[2017-11-10] MEDS ORDERED: ZOFRAN INJ 4 MG VIAL ONE (07:55)
[2017-11-10 08:13] LABS: ABG BASE EXCESS -10.7 mmol/L (-2.0-2.0); ABG HCO3 15.2 mmol/L (22-26)
[2017-11-10] MEDS ORDERED: NS 1000 ML 1,000 ML IV SCH (10:00)
[2017-11-10 10:33] LABS: BLOOD UREA NITROGEN 23 mg/dL (7-18); CALCIUM 9.3 mg/dL (8.5-10.1); CARBON DIOXIDE 16.4 mmol/L (21-32); CHLORIDE 99 mmol/L (98-107); COR NA(FOR HYPERGLY) 148 mmol/L (136-145); CREATININE 1.13 mg/dL (0.70-1.30); SODIUM 140 mmol/L (136-145); eGFR NON BLACK RACES > 60 (>60)
[2017-11-10] MEDS ORDERED: NS + KCL 20 MEQ/L 1,000 ML IV SCH (12:14)
[2017-11-10] MEDS ORDERED: METHADONE HCL PO PRN (12:14)
[2017-11-10 12:47] LABS: BLOOD UREA NITROGEN 17 mg/dL (7-18); CALCIUM 8.9 mg/dL (8.5-10.1); CHLORIDE 105 mmol/L (98-107); COR NA(FOR HYPERGLY) 147 mmol/L (136-145); CREATININE 1.09 mg/dL (0.70-1.30); SODIUM 143 mmol/L (136-145); eGFR NON BLACK RACES > 60 (>60)
[2017-11-10 12:51] LABS: CARBON DIOXIDE 14.7 mmol/L (21-32)
[2017-11-10 13:01] LABS: CKMB % 2.5 % (<4); CREATINE KINASE 40 Units/L (39-308); TROPONIN I < 0.02 ng/mL (0-1.5)
[2017-11-10] MEDS ORDERED: ZESTRIL TAB 5 MG ONE (13:04)
[2017-11-10] MEDS: PHENERGAN INJ 25 MG IV PRN ×2 (13:10→20:20)
[2017-11-10] MEDS: DEMEROL INJ IVP PRN ×2 (13:17→20:20)
[2017-11-10] MEDS: ZESTRIL TAB 5 MG PO SCH (13:18)
[2017-11-10] MEDS: XANAX PO SCH ×3 (13:18→23:11)
[2017-11-10 13:40] VITALS: BMI 21.1
[2017-11-10] MEDS: SODIUM BICARBONATE 8.4% IV SCH ×4 (13:47→22:13)
[2017-11-10] MEDS: KCL IV SCH ×4 (13:47→22:13)
[2017-11-10] MEDS: NS IV SCH ×4 (13:47→22:13)
[2017-11-10 16:08] LABS: BILIRUBIN,URINE NEGATIVE (NEGATIVE); BLOOD/HEMOGLOBIN,URINE 1+ (NEGATIVE); GLUCOSE, URINE 4+ (NEGATIVE); KETONES,URINE 4+ (NEGATIVE); LEUKOCYTE ESTERASE ,URINE NEGATIVE (NEGATIVE); NITRITES,URINE NEGATIVE (NEGATIVE); PROTEIN,URINE NEGATIVE (NEGATIVE); UROBILINOGEN,URINE NORMAL (NORMAL)
[2017-11-10 16:10] LABS: APPEARANCE,URINE CLEAR (CLEAR); COLOR,URINE YELLOW (YELLOW)
[2017-11-10 16:16] LABS: BACTERIA,URINE TRACE /HPF (NEGATIVE); MUCUS,URINE RARE /HPF (NEGATIVE); RBC,URINE 0-2 /HPF (NONE SEEN); SQUAMOUS EPITHELIAL CELL,UR RARE /HPF (NEGATIVE)
[2017-11-10 16:36] LABS: ABG BASE EXCESS -7.4 mmol/L (-2.0-2.0)
[2017-11-10 16:37] LABS: ABG HCO3 17.1 mmol/L (22-26)
[2017-11-10 17:05] LABS: BLOOD UREA NITROGEN 15 mg/dL (7-18); CARBON DIOXIDE 19.9 mmol/L (21-32); CHLORIDE 105 mmol/L (98-107); COR NA(FOR HYPERGLY) 147 mmol/L (136-145); SODIUM 144 mmol/L (136-145); eGFR NON BLACK RACES > 60 (>60)
[2017-11-10] MEDS ORDERED: NORMODYNE INJ 100 MG VIAL ONE (18:05)
[2017-11-10] MEDS: NORMODYNE INJ 20 MG VIAL IVP PRN ×2 (18:08→18:39)
[2017-11-10] MEDS: SNACK - Diabetic Appropriate PO SCH (20:05)
[2017-11-10] MEDS: KLONOPIN TAB 1 MG PO SCH (20:21)
[2017-11-10 20:36] LABS: BLOOD UREA NITROGEN 13 mg/dL (7-18); CALCIUM 8.6 mg/dL (8.5-10.1); CARBON DIOXIDE 20.2 mmol/L (21-32); CHLORIDE 109 mmol/L (98-107); COR NA(FOR HYPERGLY) 147 mmol/L (136-145); CREATININE 1.01 mg/dL (0.70-1.30); SODIUM 145 mmol/L (136-145); eGFR NON BLACK RACES > 60 (>60)
[2017-11-11 00:49] LABS: BLOOD UREA NITROGEN 10 mg/dL (7-18); CALCIUM 8.6 mg/dL (8.5-10.1); CARBON DIOXIDE 20.5 mmol/L (21-32); CHLORIDE 107 mmol/L (98-107); COR NA(FOR HYPERGLY) 145 mmol/L (136-145); CREATININE 0.89 mg/dL (0.70-1.30); SODIUM 143 mmol/L (136-145); eGFR NON BLACK RACES > 60 (>60)
[2017-11-11 00:50] LABS: ABG BASE EXCESS -4.6 mmol/L (-2.0-2.0)
[2017-11-11] MEDS ORDERED: TYLENOL SUPP 650 MG PR PRN (01:54)
[2017-11-11] MEDS: PHENERGAN INJ 25 MG IV PRN ×4 (03:16→21:11)
[2017-11-11] MEDS: DEMEROL INJ IVP PRN ×4 (03:16→21:11)
[2017-11-11 04:29] LABS: BASOPHILS % (AUTO) 0.3 % (0.2-1.0); HEMOGLOBIN 11.1 g/dL (13.5-18.0); LYMPHOCYTES # (AUTO) 2.2 X10^3/uL (1.3-2.9); LYMPHOCYTES % (AUTO) 14.6 % (21.0-51.0); MEAN CORPUSCULAR HEMOGLOBIN 28.4 pg (27.0-34.0); MEAN CORPUSCULAR HGB CONC 32.6 g/dL (33.0-35.0); MEAN CORPUSCULAR VOLUME 87.2 fL (80.0-100.0); MONOCYTES # (AUTO) 0.9 x10^3/uL (0.3-0.8); MONOCYTES % (AUTO) 5.7 % (0.0-13.0); NEUTROPHILS # (AUTO) 12.1 x10^3/uL (2.2-4.8); NEUTROPHILS % (AUTO) 79.4 % (42.0-75.0); PLATELET COUNT 271 X10^3/uL (150.0-450.0); RED CELL DISTRIBUTION WIDTH 14.8 % (11.6-16.5); WHITE BLOOD COUNT 15.2 X10^3/uL (3.6-10.0)
[2017-11-11 04:39] LABS: ALANINE AMINOTRANSFERASE 15 Units/L (12-78); ALBUMIN 3.1 g/dL (3.4-5.0); ALKALINE PHOSPHATASE 78 Units/L (46-116); ASPARTATE AMINO TRANSFERASE 18 Units/L (15-37); BLOOD UREA NITROGEN 8 mg/dL (7-18); CALCIUM 8.7 mg/dL (8.5-10.1); CARBON DIOXIDE 19.8 mmol/L (21-32); CHLORIDE 105 mmol/L (98-107); COR CA(FOR HYPOALB) 9.4 mg/dL (8.5-10.1); COR NA(FOR HYPERGLY) 144 mmol/L (136-145); CREATININE 0.88 mg/dL (0.70-1.30); SODIUM 142 mmol/L (136-145); TOTAL PROTEIN 6.5 g/dL (6.4-8.2); eGFR NON BLACK RACES > 60 (>60)
[2017-11-11 04:45] LABS: SERUM ACETONE MODERATE (NEGATIVE)
[2017-11-11] MEDS: SODIUM BICARBONATE 8.4% IV SCH ×6 (05:31→21:08)
[2017-11-11] MEDS: NS IV SCH ×6 (05:31→21:08)
[2017-11-11] MEDS: KCL IV SCH ×6 (05:31→21:08)
[2017-11-11] MEDS: XANAX PO SCH ×3 (06:03→21:08)
[2017-11-11] MEDS: ZESTRIL TAB 5 MG PO SCH (09:27)
[2017-11-11 17:35] LABS: SERUM ACETONE MODERATE (NEGATIVE)
[2017-11-11 17:40] LABS: ALANINE AMINOTRANSFERASE 19 Units/L (12-78); ALBUMIN 3.5 g/dL (3.4-5.0); ALKALINE PHOSPHATASE 88 Units/L (46-116); ASPARTATE AMINO TRANSFERASE 13 Units/L (15-37); BLOOD UREA NITROGEN 4 mg/dL (7-18); CALCIUM 9.3 mg/dL (8.5-10.1); CARBON DIOXIDE 19.8 mmol/L (21-32); CHLORIDE 103 mmol/L (98-107); COR NA(FOR HYPERGLY) 142 mmol/L (136-145); CREATININE 0.85 mg/dL (0.70-1.30); SODIUM 140 mmol/L (136-145); TOTAL PROTEIN 7.3 g/dL (6.4-8.2); eGFR NON BLACK RACES > 60 (>60)
[2017-11-11] MEDS ORDERED: K-RIDER 10 MEQ/NS 100 ML 10 MEQ/100 ML BAG IV PRN (17:55)
[2017-11-11] MEDS ORDERED: K-LYTE EFFERVESCENT PO PRN (17:55)
[2017-11-11] MEDS ORDERED: POTASSIUM CHL 60 MEQ/NS 0.45% 500 ML IV PRN (17:55)
[2017-11-11] MEDS ORDERED: POTASSIUM CHLORIDE LIQ 20 MEQ UDC PO PRN (17:55)
[2017-11-11] MEDS: NORMODYNE INJ 20 MG VIAL IVP PRN ×3 (18:13→23:20)
[2017-11-11] MEDS: POTASSIUM CHL 40 MEQ/NS 0.45% 500 ML IV PRN (18:13)
[2017-11-11] MEDS: SNACK - Diabetic Appropriate PO SCH (21:08)
[2017-11-11] MEDS: KLONOPIN TAB 1 MG PO SCH (22:11)
--- NOTE | 2017-11-11 22:32 | DR.H&P ---
H&P - History & Physical for Day of: H&P Date: 11/10/17 - Chief Complaint Chief Complaint: NAUSEA, VOMITING, ABDOMINAL PAIN, HYPERGLYCEMIA - History of Present Illness History of Present Illness: H&P WAS COMPLETED WITH HIS LAST VISIT ON . HE RETURNED TO THE ER TODAY WITH COMPLAINTS OF NAUSEA, VOMITING, AND ABDOMINAL PAIN. HE REPORTS THAT SYMPTOMS STARTED SEVERAL DAYS AGO AND HAVE PROGRESSIVELY GOTTEN WORSE. PATIENT HAS A HISTORY OF DIABETES AND DIABETIC GASTROPARESIS, FOR WHICH HE IS GENERALLY NON-COMPLIANT. HE RATES ABDOMINAL PAIN 11/07. ON ARRIVAL, VITLAS WERE 97.3-128-16-97%-113/77. LABS WERE OBTAINED. ABNORMAL LAB VALUES INCLUDE THE FOLLOWING: WBC 18.5, RBC 4.67, HCT 41.7, SODIUM 133, CHLORIDE 93, CARBON DIOXIDE 17.7, BUN 22, GLUCOSE 503, AST 13, LIPASE 35. ABG REVEALED PH 7.270, PC02 33.0, O02 95, 02 SATURATION 96.0, HC03 15.2, BASE EXCESS -10.7. TOXICOLOGY REPORTED POSITIVE FOR METHADONE, AMPHETAMINES, AND BENZODIAZEPINES. SERUM ACETONES SMALL. AN ABDOMEN XRAY WAS OBTAINED AND REVEALED FINDINGS CONSISTENT WITH CONSTIPATION AND POSSIBLE FECAL IMPACTION. NEGATIVE OTHERWISE. EKG REVEALED SINUS TACHYCARDIA WITH HR 134. HE WAS GIVEN THREE NORMAL SALINE BOLUS IN THE ER, THEN STARTED ON NORMAL SALINE WITH 20MEQ KCL WITH 1 AMP SODIUM BICARB IN EACH LITER AT 125ML/HR. HE WAS ALSO STARTED ON AN INSULIN DRIP. PATIENT WAS ADMITTED TO THE INTENSIVE CARE UNIT FOR FURTHER EVALUATION AND TREATMENT OF HYPERGLYCEMIA. WE PLAN TO FOLLOW UP WITH AM LABS AND CONTINUE TO MONITOR BLOOD GLUCOSE LEVELS. - Past Medical History Past Medical History: Anxiety, Depression, Diabetes, GERD, Hypertension Additional Medical History: DKA, Gastroparesis, Chronic Low Back Pain With Radiculopathy, Pancreatitis, UTI's - Past Surgical History Surgical History: Other Additional Surgical History: [place] Teeth Surgically Removed - Family History Family Medical History: Diabetes Mellitus, Sudden Cardiac , Hypertension - Social History Does patient currently use any type of tobacco product: Yes Have you used tobacco products in the last 12 months: Yes Type of Tobacco Use: Cigarettes Does any household member use tobacco: Yes Alcohol Use: Occasionally Drug Use: Prescription Drugs, Methamphetamine - Medications Home Medications: No Known Drug Allergies Allergy (Verified 10/07/17 10:20) CONTINUE taking the following medications insulin detemir U-100 [Levemir U-100 Insulin] 25 units SUB-Q BID 11/10/17 [ History] lisinopril 1 tab PO HS 11/10/17 [History] - Review of Systems Constitutional: Sweats, Weakness Eyes: No Symptoms Reported ENT: No Symptoms Reported Respiratory: No Symptoms Reported Cardiovascular: No Symptoms Reported, Light Headedness Gastrointestinal: Nausea, Vomiting, Abdominal Pain, Constipation Genitourinary: No Symptoms Reported Musculoskeletal: No Symptoms Reported Skin: No Symptoms Reported Neurological: Weakness - Physical Exam Vital Signs: Temperature 98.5 F Pulse Rate [Left Brachial] 103 Pulse Rate 128 Respiratory Rate 21 Blood Pressure [Left Arm] 145/97 Blood Pressure [Right Arm] 165/93 Blood Pressure 113/77 O2 Sat by Pulse Oximetry 100 Oriented: Normal Eyes: Normal Ear: Normal Nose: Normal Throat: Normal Respiratory: Diminished Throughout Cardiovascular: Tachycardia. negative: S3, S4, Murmur : Normal Auscultation: Bowel Sounds: Decreased Palpation: Normal Tenderness: Diffuse, Moderate. negative: Rebound, Guarding, Rigidity Skin: Normal Musculoskeletal: Normal Psychiatric: Normal Mood Description: Calm Affect: Normal Speech Pattern: Clear - Assessment/Plan (1) Type I diabetes mellitus Qualifiers: Diabetes mellitus complication status: with hyperglycemia Qualified Code(s) : E10.65 - Type 1 diabetes mellitus with hyperglycemia Status: Chronic Plan: ADMIT, HUMULIN R INSULIN DRIP, MONITOR OTBS (2) Nausea & vomiting Qualifiers: Vomiting type: unspecified Vomiting Intractability: intractable Qualified Code(s): R11.2 - Nausea with vomiting, unspecified Status: Acute Plan: PHENERGAN 25MG IV Q6H PRN, CONTINUE TO MONITOR (3) Gastroparesis Status: Acute (4) Essential hypertension, benign Status: Chronic Plan: CONTINUE HOME MEDICATIONS (5) Constipation Qualifiers: Constipation type: slow transit constipation Qualified Code(s): K59.01 - Slow transit constipation Status: Acute - Allergies Allergies/Adverse Reactions: Allergies Allergy/AdvReac Type Severity Reaction Status Date / Time No Known Drug Allergies Allergy Verified 10/07/17 10:20
[2017-11-11] MEDS: MAGNESIUM SULFATE 1 GRAM/100 mL PREMIX 1 GM/100 ML BAG IV PRN (23:50)
[2017-11-12] MEDS: MAGNESIUM SULFATE 1 GRAM/100 mL PREMIX 1 GM/100 ML BAG IV PRN (02:05)
[2017-11-12] MEDS: NORMODYNE INJ 20 MG VIAL IVP PRN ×7 (03:04→23:12)
[2017-11-12] MEDS: DEMEROL INJ IVP PRN ×4 (03:13→21:27)
[2017-11-12] MEDS: PHENERGAN INJ 25 MG IV PRN ×4 (03:14→21:27)
[2017-11-12 04:03] LABS: ABG BASE EXCESS 0.3 mmol/L (-2.0-2.0); ABG HCO3 23.1 mmol/L (22-26)
[2017-11-12 04:04] LABS: ABG ALLEN TEST POS
[2017-11-12] MEDS: KCL IV SCH ×6 (06:03→22:57)
[2017-11-12] MEDS: SODIUM BICARBONATE 8.4% IV SCH ×6 (06:03→22:57)
[2017-11-12] MEDS: NS IV SCH ×6 (06:03→22:57)
[2017-11-12] MEDS: XANAX PO SCH ×3 (06:03→21:27)
[2017-11-12 06:23] LABS: BASOPHILS % (AUTO) 0.2 % (0.2-1.0); HEMATOCRIT 35.2 % (42.0-54.0); LYMPHOCYTES # (AUTO) 2.1 X10^3/uL (1.3-2.9); MEAN CORPUSCULAR HEMOGLOBIN 29.2 pg (27.0-34.0); MEAN CORPUSCULAR HGB CONC 34.1 g/dL (33.0-35.0); MEAN CORPUSCULAR VOLUME 85.6 fL (80.0-100.0); MEAN PLATELET VOLUME 8.4 fL (7.4-11.0); MONOCYTES # (AUTO) 1.2 x10^3/uL (0.3-0.8); MONOCYTES % (AUTO) 8.5 % (0.0-13.0); NEUTROPHILS # (AUTO) 10.6 x10^3/uL (2.2-4.8); NEUTROPHILS % (AUTO) 76.3 % (42.0-75.0); PLATELET COUNT 260 X10^3/uL (150.0-450.0); RED BLOOD COUNT 4.11 X10^6/uL (4.7-6.0); RED CELL DISTRIBUTION WIDTH 14.9 % (11.6-16.5); WHITE BLOOD COUNT 13.9 X10^3/uL (3.6-10.0)
[2017-11-12 07:19] LABS: ALANINE AMINOTRANSFERASE 19 Units/L (12-78); ALBUMIN 3.3 g/dL (3.4-5.0); ALKALINE PHOSPHATASE 96 Units/L (46-116); ASPARTATE AMINO TRANSFERASE 14 Units/L (15-37); BLOOD UREA NITROGEN 5 mg/dL (7-18); CALCIUM 8.8 mg/dL (8.5-10.1); CARBON DIOXIDE 22.7 mmol/L (21-32); CHLORIDE 102 mmol/L (98-107); COR CA(FOR HYPOALB) 9.4 mg/dL (8.5-10.1); COR NA(FOR HYPERGLY) 141 mmol/L (136-145); CREATININE 0.81 mg/dL (0.70-1.30); SODIUM 139 mmol/L (136-145); TOTAL PROTEIN 6.9 g/dL (6.4-8.2); eGFR NON BLACK RACES > 60 (>60)
[2017-11-12 07:22] LABS: MAGNESIUM 1.9 mg/dL (1.7-2.9)
[2017-11-12 07:26] LABS: SERUM ACETONE MODERATE (NEGATIVE)
--- NOTE | 2017-11-12 07:54 | PCM.PROG ---
Progress Note - Progress Note for Day of Date of Exam: 11/11/17 - Subjective Subjective: WAS ADMITTED FOR DEHYDRATION, HYPERGLYCEMIA, GASTROPARESIS, ABDOMINAL PAIN, AND CONSTIPATION. TODAY, HE IS ALERT AND ORIENTED, LYING IN BED ON MORNING ROUNDS. HE CONTINUES WITH COMPLAINTS OF NAUSEA, WEAKNESS, AND ABDOMINAL PAIN. ON EXAMINATION, HE CONTINUES WITH TACHYCARDIA, HR 100-110. BILATERAL LUNGS ARE NOTED WITH DIMINISHED LUNG SOUNDS THROUGHOUT. ABDOMEN IS ROUND, SOFT, AND NOTED WITH MILD, DIFFUSE TENDERNESS TO PALPATION. DECREASED BOWEL SOUNDS NOTED THROUGHOUT. HIS VITALS THIS MORNING ARE 100.4-104-20-99%NC- 140/88. LABS WERE OBTAINED. ABNORMAL LAB VALUES INCLUDE THE FOLLOWING: WBC 15.2 , RBC 3.90, HGB 11.1, HCT 34.0, POTASSIUM 3.2, CARBON DIOXIDE 19.8, BUN 4, GLUCOSE 182, AST 13, SERUM ACETONES MODERATE. ABG REVEALED PH 7.410, PC02 30.0, PO2 84, HC03 19.0, 02 SATURATION 96.0, BASE EXCESS -4.6. HE CONTINUES ON IV FLUIDS AND AN INSULIN DRIP THIS MORNING. TODAY, WE WILL REPLACE HIS POTASSIUM AND CONTINUE WITH CURRENT PLAN OF CARE. OTHERWISE, WE PLAN TO FOLLOW UP WITH AM LABS AND CONTINUE TO MONITOR PATIENT. - Past Medical Family Social History Past Med/Fam/Surg Hx: No changes since H&P Allergies: Allergies No Known Drug Allergies Allergy (Verified 10/07/17 10:20) - Review of Systems ROS: No change since H&P - Vital Signs and I&O's Vital Signs: Temperature 99.8 F Pulse Rate [Left Brachial] 101 Pulse Rate 128 Respiratory Rate 22 Blood Pressure [Left Arm] 151/102 Blood Pressure [Right Arm] 165/93 Blood Pressure 113/77 O2 Sat by Pulse Oximetry 97 Intake and Output: Intake & Output 11/09/17 11/10/17 11/11/17 11/12/17 11:59 11:59 11:59 11:59 Intake Total 4507 / 4507 4074 / 4074 Output Total 1200 / 1200 1425 / 1425 Balance 3307 / 3307 2649 / 2649 - Physical Exam Oriented: Normal Eyes: Normal Ear: Normal Nose: Normal Throat: Normal Respiratory: Generalized, Diminished Cardiovascular: Tachycardia. negative: S3, S4, Murmur : Normal Auscultation: Bowel Sounds: Decreased Palpation: Normal Tenderness: Diffuse, Mild. negative: Rebound, Guarding, Rigidity Skin: Normal Musculoskeletal: Normal Psychiatric: Normal Mood Description: Calm Affect: Normal Speech Pattern: Clear - Laboratory and Diagnostics Result Diagrams: 11/12/17 05:32 11/12/17 05:32 Labs: Laboratory WBC 13.9 X10^3/uL (3.6-10.0) H 11/12/17 05:32 RBC 4.11 X10^6/uL (4.7-6.0) L 11/12/17 05:32 Hgb 12.0 g/dL (13.5-18.0) L 11/12/17 05:32 Hct 35.2 % (42.0-54.0) L 11/12/17 05:32 MCV 85.6 fL (80.0-100.0) 11/12/17 05:32 MCH 29.2 pg (27.0-34.0) 11/12/17 05:32 MCHC 34.1 g/dL (33.0-35.0) 11/12/17 05:32 RDW 14.9 % (11.6-16.5) 11/12/17 05:32 Plt Count 260 X10^3/uL (150.0-450.0) 11/12/17 05:32 MPV 8.4 fL (7.4-11.0) 11/12/17 05:32 Neut % (Auto) 76.3 % (42.0-75.0) H 11/12/17 05:32 Lymph % (Auto) 15.0 % (21.0-51.0) L 11/12/17 05:32 [place] % (Auto) 8.5 % (0.0-13.0) 11/12/17 05:32 Eos % (Auto) 0.0 % (0.9-2.9) L 11/12/17 05:32 Baso % (Auto) 0.2 % (0.2-1.0) 11/12/17 05:32 Neut # (Auto) 10.6 x10^3/uL (2.2-4.8) H 11/12/17 05:32 Lymph # (Auto) 2.1 X10^3/uL (1.3-2.9) 11/12/17 05:32 [place] # (Auto) 1.2 x10^3/uL (0.3-0.8) H 11/12/17 05:32 Eos # (Auto) 0.0 x10^3/uL (0.0-0.2) 11/12/17 05:32 Baso # (Auto) 0.0 X10^3/uL (0.0-0.1) 11/12/17 05:32 Absolute Nucleated RBC 0.0 /100WBC 11/12/17 05:32 Sample Site Lr 11/12/17 04:00 ABG pH 7.480 (7.35-7.45) H 11/12/17 04:00 ABG pCO2 31.0 mmHg (35.0-45.0) L 11/12/17 04:00 ABG pO2 85.0 mmHg (80.0-100.0) 11/12/17 04:00 ABG HCO3 23.1 mmol/L (22-26) 11/12/17 04:00 ABG O2 Saturation 97.0 % (90-100) 11/12/17 04:00 ABG Base Excess 0.3 mmol/L (-2.0-2.0) 11/12/17 04:00 Geoff Test Pos 11/12/17 04:00 A-a Gradient 26.0 mmHg 11/12/17 04:00 FiO2 21.000 11/12/17 04:00 Blood Gas Comments Marva well ae 11/12/17 04:00 Sodium 139 mmol/L (136-145) 11/12/17 05:32 Corrected Sodium 141 mmol/L (136-145) 11/12/17 05:32 Potassium 3.1 mmol/L (3.5-5.1) L 11/12/17 05:32 Chloride 102 mmol/L (98-107) 11/12/17 05:32 Carbon Dioxide 22.7 mmol/L (21-32) 11/12/17 05:32 BUN 5 mg/dL (7-18) L 11/12/17 05:32 Creatinine 0.81 mg/dL (0.70-1.30) 11/12/17 05:32 Est GFR (MDRD) Af Amer > 60 (>60) 11/12/17 05:32 Est GFR (MDRD) Non-Af > 60 (>60) 11/12/17 05:32 Glucose 169 mg/dL (65-99) H 11/12/17 05:32 POC Glucose (mg/dL) 147 mg/dL (65-99) H 11/12/17 07:44 Calcium 8.8 mg/dL (8.5-10.1) 11/12/17 05:32 Corrected Calcium 9.4 mg/dL (8.5-10.1) 11/12/17 05:32 Magnesium 1.9 mg/dL (1.7-2.9) 11/12/17 05:32 Total Bilirubin 0.80 mg/dL (0.2-1.0) 11/12/17 05:32 AST 14 Units/L (15-37) L 11/12/17 05:32 ALT 19 Units/L (12-78) 11/12/17 05:32 Alkaline Phosphatase 96 Units/L (46-116) 11/12/17 05:32 Creatine Kinase 40 Units/L (39-308) 11/10/17 12:30 CK-MB (CK-2) 1.0 ng/mL (0-4.0) 11/10/17 12:30 CK/CKMB % Calc 2.5 % (<4) 11/10/17 12:30 Troponin I < 0.02 ng/mL (0-1.5) 11/10/17 12:30 Total Protein 6.9 g/dL (6.4-8.2) 11/12/17 05:32 Albumin 3.3 g/dL (3.4-5.0) L 11/12/17 05:32 Globulin 3.6 g/dL (2.5-4.5) 11/12/17 05:32 Albumin/Globulin Ratio 0.9 Ratio (1.1-2.1) L 11/12/17 05:32 Lipase 35 Units/L (73-393) L 11/10/17 05:25 Specimen Type Random urine 11/10/17 15:58 Urine Color Yellow (YELLOW) 11/10/17 15:58 Urine Appearance Clear (CLEAR) 11/10/17 15:58 Urine pH 5.0 (5.0 - 8.0) 11/10/17 15:58 Ur Specific [place] 1.020 (1.000-1.030) 11/10/17 15:58 Urine Protein Negative (NEGATIVE) 11/10/17 15:58 Urine Glucose (UA) 4+ (NEGATIVE) 11/10/17 15:58 Urine Ketones 4+ (NEGATIVE) 11/10/17 15:58 Urine Occult Blood 1+ (NEGATIVE) 11/10/17 15:58 Urine Nitrite Negative (NEGATIVE) 11/10/17 15:58 Urine Bilirubin Negative (NEGATIVE) 11/10/17 15:58 Urine Urobilinogen Normal (NORMAL) 11/10/17 15:58 Ur Leukocyte Esterase Negative (NEGATIVE) 11/10/17 15:58 Urine RBC 0-2 /HPF (NONE SEEN) 11/10/17 15:58 Urine WBC 0-2 /HPF (NONE SEEN) 11/10/17 15:58 Ur Squamous Epith Cells Rare /HPF (NEGATIVE) 11/10/17 15:58 Urine Bacteria Trace /HPF (NEGATIVE) 11/10/17 15:58 Urine Mucus Rare /HPF (NEGATIVE) 11/10/17 15:58 Ur Culture Indicated? No/not indicated 11/10/17 15:58 Urine Opiates Screen Negative (NEG=<300) 11/10/17 15:58 Urine Methadone Screen Positive (NEG=<300) 11/10/17 15:58 Ur Barbiturates Screen Negative (NEG=<200) 11/10/17 15:58 Ur Phencyclidine Scrn Negative (NEG=<25) 11/10/17 15:58 Ur Amphetamines Screen Positive (NEG=<1000) 11/10/17 15:58 U Benzodiazepines Scrn Positive (NEG=<200) 11/10/17 15:58 Urine Cocaine Screen Negative (NEG=<300) 11/10/17 15:58 U Marijuana (THC) Screen Negative (NEG=<50) 11/10/17 15:58 Acetone, Semi-Quant Moderate (NEGATIVE) H 11/12/17 05:32 - Plan (1) Type I diabetes mellitus Status: Chronic Qualifiers: Diabetes mellitus complication status: with hyperglycemia Qualified Code(s) : E10.65 - Type 1 diabetes mellitus with hyperglycemia Plan: NS WITH 20MEQ KCL AND 1 AMP BICARB TO EACH LITER, HUMULIN R INSULIN DRIP, MONITOR OTBS (2) Nausea & vomiting Status: Acute Qualifiers: Vomiting type: unspecified Vomiting Intractability: intractable Qualified Code(s): R11.2 - Nausea with vomiting, unspecified Plan: PHENERGAN 25MG IV Q6H PRN, CONTINUE TO MONITOR (3) Gastroparesis Status: Acute (4) Essential hypertension, benign Status: Chronic Plan: CONTINUE HOME MEDICATIONS (5) Constipation Status: Acute Qualifiers: Constipation type: slow transit constipation Qualified Code(s): K59.01 - Slow transit constipation (6) Hypokalemia Status: Acute Plan: POTASSIUM PROTOCOL
[2017-11-12] MEDS: ZESTRIL TAB 5 MG PO SCH (08:41)
[2017-11-12] MEDS: COLACE CAP 100 MG PO SCH (08:41)
[2017-11-12] MEDS: MILK OF MAGNESIA PO SCH ×4 (08:41→21:28)
[2017-11-12] MEDS: POTASSIUM CHL 40 MEQ/NS 0.45% 500 ML IV PRN ×2 (08:55→18:06)
[2017-11-12 15:45] LABS: ALANINE AMINOTRANSFERASE 15 Units/L (12-78); ALBUMIN 3.2 g/dL (3.4-5.0); ALKALINE PHOSPHATASE 86 Units/L (46-116); ASPARTATE AMINO TRANSFERASE 14 Units/L (15-37); BLOOD UREA NITROGEN 5 mg/dL (7-18); CALCIUM 8.6 mg/dL (8.5-10.1); CARBON DIOXIDE 21.3 mmol/L (21-32); CHLORIDE 100 mmol/L (98-107); COR CA(FOR HYPOALB) 9.2 mg/dL (8.5-10.1); COR NA(FOR HYPERGLY) 141 mmol/L (136-145); CREATININE 0.69 mg/dL (0.70-1.30); SODIUM 138 mmol/L (136-145); TOTAL PROTEIN 6.6 g/dL (6.4-8.2); eGFR NON BLACK RACES > 60 (>60)
--- NOTE | 2017-11-12 17:27 | PCM.PROG ---
Progress Note - Progress Note for Day of Date of Exam: 11/12/17 - Subjective Subjective: WAS ADMITTED FOR DEHYDRATION, HYPERGLYCEMIA, GASTROPARESIS, ABDOMINAL PAIN, AND CONSTIPATION. TODAY, HE IS ALERT AND ORIENTED, LYING IN BED ON MORNING ROUNDS. HE CONTINUES WITH COMPLAINTS OF WEAKNESS AND ABDOMINAL PAIN. ON EXAMINATION, HE CONTINUES WITH TACHYCARDIA, HR 100-110. BILATERAL LUNGS ARE NOTED WITH DIMINISHED LUNG SOUNDS THROUGHOUT. ABDOMEN IS ROUND, SOFT, AND NOTED WITH MILD, DIFFUSE TENDERNESS TO PALPATION. DECREASED BOWEL SOUNDS NOTED THROUGHOUT. HIS VITALS THIS MORNING ARE 100.3-104-23-99%-154/103. LABS WERE OBTAINED. ABNORMAL LAB VALUES INCLUDE THE FOLLOWING: WBC 13.9, RBC 4.11, HGB 12.0, HCT 35.2, POTASSIUM 3.2, BUN 5, CREATININE 0.69, GLUCOSE 220, TOTAL BILI 1.10, AST 14, ALBUMIN 3.2. ABG REVEALED PH 7.480, PC02 31.0, OTHERWISE NORMAL. HE CONTINUES ON IV FLUIDS AND AN INSULIN DRIP THIS MORNING. TODAY, WE WILL REPLACE HIS POTASSIUM AND CONTINUE WITH CURRENT PLAN OF CARE. OTHERWISE, WE PLAN TO FOLLOW UP WITH AM LABS AND CONTINUE TO MONITOR PATIENT. - Past Medical Family Social History Past Med/Fam/Surg Hx: No changes since H&P Allergies: Allergies No Known Drug Allergies Allergy (Verified 10/07/17 10:20) - Review of Systems ROS: No change since H&P - Vital Signs and I&O's Vital Signs: Temperature 99.7 F Pulse Rate [Left Brachial] 115 Pulse Rate 128 Respiratory Rate 15 Blood Pressure [Left Arm] 163/107 Blood Pressure [Right Arm] 165/93 Blood Pressure 113/77 O2 Sat by Pulse Oximetry 98 Intake and Output: Intake & Output 11/10/17 11/11/17 11/12/17 11/13/17 11:59 11:59 11:59 11:59 Intake Total 4507 / 4507 4077 / 4077 1547 / 1547 Output Total 1200 / 1200 1425 / 1425 1600 / 1600 Balance 3307 / 3307 2652 / 2652 -53 / -53 - Physical Exam Oriented: Normal Eyes: Normal Ear: Normal Nose: Normal Throat: Normal Respiratory: Generalized, Diminished Cardiovascular: Tachycardia. negative: S3, S4, Murmur : Normal Auscultation: Bowel Sounds: Decreased Palpation: Normal Tenderness: Diffuse, Mild. negative: Rebound, Guarding, Rigidity Skin: Normal Musculoskeletal: Normal Psychiatric: Normal Mood Description: Calm Affect: Normal Speech Pattern: Clear - Laboratory and Diagnostics Result Diagrams: 11/12/17 05:32 11/12/17 15:17 Labs: Laboratory WBC 13.9 X10^3/uL (3.6-10.0) H 11/12/17 05:32 RBC 4.11 X10^6/uL (4.7-6.0) L 11/12/17 05:32 Hgb 12.0 g/dL (13.5-18.0) L 11/12/17 05:32 Hct 35.2 % (42.0-54.0) L 11/12/17 05:32 MCV 85.6 fL (80.0-100.0) 11/12/17 05:32 MCH 29.2 pg (27.0-34.0) 11/12/17 05:32 MCHC 34.1 g/dL (33.0-35.0) 11/12/17 05:32 RDW 14.9 % (11.6-16.5) 11/12/17 05:32 Plt Count 260 X10^3/uL (150.0-450.0) 11/12/17 05:32 MPV 8.4 fL (7.4-11.0) 11/12/17 05:32 Neut % (Auto) 76.3 % (42.0-75.0) H 11/12/17 05:32 Lymph % (Auto) 15.0 % (21.0-51.0) L 11/12/17 05:32 [place] % (Auto) 8.5 % (0.0-13.0) 11/12/17 05:32 Eos % (Auto) 0.0 % (0.9-2.9) L 11/12/17 05:32 Baso % (Auto) 0.2 % (0.2-1.0) 11/12/17 05:32 Neut # (Auto) 10.6 x10^3/uL (2.2-4.8) H 11/12/17 05:32 Lymph # (Auto) 2.1 X10^3/uL (1.3-2.9) 11/12/17 05:32 [place] # (Auto) 1.2 x10^3/uL (0.3-0.8) H 11/12/17 05:32 Eos # (Auto) 0.0 x10^3/uL (0.0-0.2) 11/12/17 05:32 Baso # (Auto) 0.0 X10^3/uL (0.0-0.1) 11/12/17 05:32 Absolute Nucleated RBC 0.0 /100WBC 11/12/17 05:32 Sample Site Lr 11/12/17 04:00 ABG pH 7.480 (7.35-7.45) H 11/12/17 04:00 ABG pCO2 31.0 mmHg (35.0-45.0) L 11/12/17 04:00 ABG pO2 85.0 mmHg (80.0-100.0) 11/12/17 04:00 ABG HCO3 23.1 mmol/L (22-26) 11/12/17 04:00 ABG O2 Saturation 97.0 % (90-100) 11/12/17 04:00 ABG Base Excess 0.3 mmol/L (-2.0-2.0) 11/12/17 04:00 Geoff Test Pos 11/12/17 04:00 A-a Gradient 26.0 mmHg 11/12/17 04:00 FiO2 21.000 11/12/17 04:00 Blood Gas Comments Marva well ae 11/12/17 04:00 Sodium 138 mmol/L (136-145) 11/12/17 15:17 Corrected Sodium 141 mmol/L (136-145) 11/12/17 15:17 Potassium 3.2 mmol/L (3.5-5.1) L 11/12/17 15:17 Chloride 100 mmol/L (98-107) 11/12/17 15:17 Carbon Dioxide 21.3 mmol/L (21-32) 11/12/17 15:17 BUN 5 mg/dL (7-18) L 11/12/17 15:17 Creatinine 0.69 mg/dL (0.70-1.30) L 11/12/17 15:17 Est GFR (MDRD) Af Amer > 60 (>60) 11/12/17 15:17 Est GFR (MDRD) Non-Af > 60 (>60) 11/12/17 15:17 Glucose 220 mg/dL (65-99) H 11/12/17 15:17 POC Glucose (mg/dL) 178 mg/dL (65-99) H 11/12/17 16:55 Calcium 8.6 mg/dL (8.5-10.1) 11/12/17 15:17 Corrected Calcium 9.2 mg/dL (8.5-10.1) 11/12/17 15:17 Magnesium 1.9 mg/dL (1.7-2.9) 11/12/17 05:32 Total Bilirubin 1.10 mg/dL (0.2-1.0) H 11/12/17 15:17 AST 14 Units/L (15-37) L 11/12/17 15:17 ALT 15 Units/L (12-78) 11/12/17 15:17 Alkaline Phosphatase 86 Units/L (46-116) 11/12/17 15:17 Creatine Kinase 40 Units/L (39-308) 11/10/17 12:30 CK-MB (CK-2) 1.0 ng/mL (0-4.0) 11/10/17 12:30 CK/CKMB % Calc 2.5 % (<4) 11/10/17 12:30 Troponin I < 0.02 ng/mL (0-1.5) 11/10/17 12:30 Total Protein 6.6 g/dL (6.4-8.2) 11/12/17 15:17 Albumin 3.2 g/dL (3.4-5.0) L 11/12/17 15:17 Globulin 3.4 g/dL (2.5-4.5) 11/12/17 15:17 Albumin/Globulin Ratio 0.9 Ratio (1.1-2.1) L 11/12/17 15:17 Lipase 35 Units/L (73-393) L 11/10/17 05:25 Specimen Type Random urine 11/10/17 15:58 Urine Color Yellow (YELLOW) 11/10/17 15:58 Urine Appearance Clear (CLEAR) 11/10/17 15:58 Urine pH 5.0 (5.0 - 8.0) 11/10/17 15:58 Ur Specific [place] 1.020 (1.000-1.030) 11/10/17 15:58 Urine Protein Negative (NEGATIVE) 11/10/17 15:58 Urine Glucose (UA) 4+ (NEGATIVE) 11/10/17 15:58 Urine Ketones 4+ (NEGATIVE) 11/10/17 15:58 Urine Occult Blood 1+ (NEGATIVE) 11/10/17 15:58 Urine Nitrite Negative (NEGATIVE) 11/10/17 15:58 Urine Bilirubin Negative (NEGATIVE) 11/10/17 15:58 Urine Urobilinogen Normal (NORMAL) 11/10/17 15:58 Ur Leukocyte Esterase Negative (NEGATIVE) 11/10/17 15:58 Urine RBC 0-2 /HPF (NONE SEEN) 11/10/17 15:58 Urine WBC 0-2 /HPF (NONE SEEN) 11/10/17 15:58 Ur Squamous Epith Cells Rare /HPF (NEGATIVE) 11/10/17 15:58 Urine Bacteria Trace /HPF (NEGATIVE) 11/10/17 15:58 Urine Mucus Rare /HPF (NEGATIVE) 11/10/17 15:58 Ur Culture Indicated? No/not indicated 11/10/17 15:58 Urine Opiates Screen Negative (NEG=<300) 11/10/17 15:58 Urine Methadone Screen Positive (NEG=<300) 11/10/17 15:58 Ur Barbiturates Screen Negative (NEG=<200) 11/10/17 15:58 Ur Phencyclidine Scrn Negative (NEG=<25) 11/10/17 15:58 Ur Amphetamines Screen Positive (NEG=<1000) 11/10/17 15:58 U Benzodiazepines Scrn Positive (NEG=<200) 11/10/17 15:58 Urine Cocaine Screen Negative (NEG=<300) 11/10/17 15:58 U Marijuana (THC) Screen Negative (NEG=<50) 11/10/17 15:58 Acetone, Semi-Quant Moderate (NEGATIVE) H 11/12/17 15:17 - Plan (1) Type I diabetes mellitus Status: Chronic Qualifiers: Diabetes mellitus complication status: with hyperglycemia Qualified Code(s) : E10.65 - Type 1 diabetes mellitus with hyperglycemia Plan: NS WITH 20MEQ KCL AND 1 AMP BICARB TO EACH LITER, HUMULIN R INSULIN DRIP, MONITOR OTBS (2) Nausea & vomiting Status: Acute Qualifiers: Vomiting type: unspecified Vomiting Intractability: intractable Qualified Code(s): R11.2 - Nausea with vomiting, unspecified Plan: PHENERGAN 25MG IV Q6H PRN, CONTINUE TO MONITOR (3) Gastroparesis Status: Acute (4) Essential hypertension, benign Status: Chronic Plan: CONTINUE HOME MEDICATIONS (5) Constipation Status: Acute Qualifiers: Constipation type: slow transit constipation Qualified Code(s): K59.01 - Slow transit constipation (6) Hypokalemia Status: Acute Plan: POTASSIUM PROTOCOL
[2017-11-12] MEDS ORDERED: NORMODYNE INJ 100 MG VIAL ONE (19:37)
[2017-11-12] MEDS: ZOFRAN INJ 4 MG VIAL IVP PRN (19:50)
[2017-11-12] MEDS: SNACK - Diabetic Appropriate PO SCH (21:28)
[2017-11-12] MEDS: KLONOPIN TAB 1 MG PO SCH (21:28)
[2017-11-12] MEDS: MIRALAX POWDER (1 DOSE 17 G) PO SCH (21:29)
[2017-11-13] MEDS: PHENERGAN INJ 25 MG IV PRN ×2 (03:12→09:19)
[2017-11-13] MEDS: DEMEROL INJ IVP PRN ×3 (03:12→18:43)
[2017-11-13 05:28] LABS: BASOPHILS % (AUTO) 0.4 % (0.2-1.0); HEMATOCRIT 37.5 % (42.0-54.0); HEMOGLOBIN 12.8 g/dL (13.5-18.0); LYMPHOCYTES # (AUTO) 3.6 X10^3/uL (1.3-2.9); LYMPHOCYTES % (AUTO) 30.6 % (21.0-51.0); MEAN CORPUSCULAR HEMOGLOBIN 29.1 pg (27.0-34.0); MEAN CORPUSCULAR HGB CONC 34.2 g/dL (33.0-35.0); MEAN CORPUSCULAR VOLUME 85.2 fL (80.0-100.0); MEAN PLATELET VOLUME 8.1 fL (7.4-11.0); MONOCYTES # (AUTO) 1.2 x10^3/uL (0.3-0.8); MONOCYTES % (AUTO) 10.1 % (0.0-13.0); NEUTROPHILS # (AUTO) 6.9 x10^3/uL (2.2-4.8); NEUTROPHILS % (AUTO) 58.9 % (42.0-75.0); PLATELET COUNT 226 X10^3/uL (150.0-450.0); RED CELL DISTRIBUTION WIDTH 14.2 % (11.6-16.5); WHITE BLOOD COUNT 11.7 X10^3/uL (3.6-10.0)
[2017-11-13 05:40] LABS: ALANINE AMINOTRANSFERASE 15 Units/L (12-78); ALBUMIN 3.2 g/dL (3.4-5.0); ALKALINE PHOSPHATASE 84 Units/L (46-116); ASPARTATE AMINO TRANSFERASE 13 Units/L (15-37); BLOOD UREA NITROGEN 5 mg/dL (7-18); CALCIUM 8.8 mg/dL (8.5-10.1); CARBON DIOXIDE 26.3 mmol/L (21-32); CHLORIDE 101 mmol/L (98-107); COR CA(FOR HYPOALB) 9.4 mg/dL (8.5-10.1); COR NA(FOR HYPERGLY) 140 mmol/L (136-145); MAGNESIUM 1.5 mg/dL (1.7-2.9); SODIUM 139 mmol/L (136-145); TOTAL PROTEIN 6.5 g/dL (6.4-8.2); eGFR NON BLACK RACES > 60 (>60)
[2017-11-13] MEDS: NORMODYNE INJ 20 MG VIAL IVP PRN (05:57)
--- NOTE | 2017-11-13 07:31 | RAD ---
HISTORY: Abdominal pain, nausea, vomiting Study: KUB Comparison: 11/10/2017 Findings: The abdominal gas pattern is nonspecific and nonobstructive. There is a moderately large amount of st ool throughout the colon however the stool load has decreased since the prior examination. No abnorma l masses or abnormal calcifications are identified. IMPRESSION: No acute findings Reported By:
[2017-11-13] MEDS: NS IV SCH ×6 (07:45→23:32)
[2017-11-13] MEDS: MAGNESIUM SULFATE 1 GRAM/100 mL PREMIX 1 GM/100 ML BAG IV PRN ×2 (07:45→10:16)
[2017-11-13] MEDS: SODIUM BICARBONATE 8.4% IV SCH ×6 (07:45→23:32)
[2017-11-13] MEDS: KCL IV SCH ×6 (07:45→23:32)
[2017-11-13] MEDS: XANAX PO SCH ×3 (07:56→21:51)
[2017-11-13] MEDS: ZESTRIL TAB 5 MG PO SCH ×3 (07:57→10:14)
[2017-11-13] MEDS: ZOFRAN INJ 4 MG VIAL IVP PRN (07:57)
[2017-11-13] MEDS: COLACE CAP 100 MG PO SCH (09:10)
[2017-11-13] MEDS: MILK OF MAGNESIA PO SCH ×5 (09:10→21:51)
[2017-11-13] MEDS: POTASSIUM CHL 40 MEQ/NS 0.45% 500 ML IV PRN (16:57)
[2017-11-13] MEDS: SNACK - Diabetic Appropriate PO SCH (20:15)
[2017-11-13] MEDS: KLONOPIN TAB 1 MG PO SCH (21:51)
[2017-11-13] MEDS: MIRALAX POWDER (1 DOSE 17 G) PO SCH (21:51)
[2017-11-13] MEDS ORDERED: NS 1/2 + KCL 20 MEQ/L 1,000 ML IV ONE (23:03)
[2017-11-13 23:51] LABS: ALANINE AMINOTRANSFERASE 16 Units/L (12-78); ALBUMIN 2.7 g/dL (3.4-5.0); ALKALINE PHOSPHATASE 81 Units/L (46-116); ASPARTATE AMINO TRANSFERASE 17 Units/L (15-37); BLOOD UREA NITROGEN 4 mg/dL (7-18); CALCIUM 8.4 mg/dL (8.5-10.1); CARBON DIOXIDE 32.6 mmol/L (21-32); CHLORIDE 104 mmol/L (98-107); COR CA(FOR HYPOALB) 9.4 mg/dL (8.5-10.1); COR NA(FOR HYPERGLY) 143 mmol/L (136-145); CREATININE 0.61 mg/dL (0.70-1.30); SODIUM 141 mmol/L (136-145); TOTAL PROTEIN 5.5 g/dL (6.4-8.2); eGFR NON BLACK RACES > 60 (>60)
[2017-11-14] MEDS: NORVASC TAB 5 MG PO SCH ×2 (04:22→21:10)
[2017-11-14] MEDS: HumuLIN R SUBCUT PRN ×4 (04:23→21:17)
[2017-11-14] MEDS: DEMEROL INJ IVP PRN ×4 (05:37→21:16)
[2017-11-14 06:12] LABS: BASOPHILS # (AUTO) 0.1 X10^3/uL (0.0-0.1); BASOPHILS % (AUTO) 0.9 % (0.2-1.0); EOSINOPHILS # (AUTO) 0.1 x10^3/uL (0.0-0.2); EOSINOPHILS % (AUTO) 0.8 % (0.9-2.9); HEMATOCRIT 35.8 % (42.0-54.0); HEMOGLOBIN 12.2 g/dL (13.5-18.0); LYMPHOCYTES # (AUTO) 4.4 X10^3/uL (1.3-2.9); LYMPHOCYTES % (AUTO) 47.2 % (21.0-51.0); MEAN CORPUSCULAR HEMOGLOBIN 29.4 pg (27.0-34.0); MEAN CORPUSCULAR HGB CONC 33.9 g/dL (33.0-35.0); MEAN CORPUSCULAR VOLUME 86.7 fL (80.0-100.0); MONOCYTES # (AUTO) 0.7 x10^3/uL (0.3-0.8); NEUTROPHILS % (AUTO) 43.1 % (42.0-75.0); PLATELET COUNT 203 X10^3/uL (150.0-450.0); RED BLOOD COUNT 4.14 X10^6/uL (4.7-6.0); RED CELL DISTRIBUTION WIDTH 14.3 % (11.6-16.5); WHITE BLOOD COUNT 9.3 X10^3/uL (3.6-10.0)
[2017-11-14 06:46] LABS: ALANINE AMINOTRANSFERASE 21 Units/L (12-78); ALBUMIN 2.7 g/dL (3.4-5.0); ALKALINE PHOSPHATASE 86 Units/L (46-116); ASPARTATE AMINO TRANSFERASE 30 Units/L (15-37); BLOOD UREA NITROGEN 5 mg/dL (7-18); CALCIUM 8.5 mg/dL (8.5-10.1); CARBON DIOXIDE 30.4 mmol/L (21-32); CHLORIDE 102 mmol/L (98-107); COR CA(FOR HYPOALB) 9.5 mg/dL (8.5-10.1); COR NA(FOR HYPERGLY) 142 mmol/L (136-145); CREATININE 0.57 mg/dL (0.70-1.30); SODIUM 139 mmol/L (136-145); TOTAL PROTEIN 5.7 g/dL (6.4-8.2); eGFR NON BLACK RACES > 60 (>60)
[2017-11-14 07:00] LABS: SERUM ACETONE SMALL (NEGATIVE)
--- NOTE | 2017-11-14 08:29 | PCM.PROG ---
Progress Note - Progress Note for Day of Date of Exam: 11/13/17 - Subjective Subjective: WAS ADMITTED FOR DEHYDRATION, HYPERGLYCEMIA, GASTROPARESIS, ABDOMINAL PAIN, AND CONSTIPATION. TODAY, HE IS ALERT AND ORIENTED, LYING IN BED ON MORNING ROUNDS. HE CONTINUES WITH COMPLAINTS OF WEAKNESS AND ABDOMINAL PAIN, BUT REPORTS SLIGHT IMPROVEMENT SINCE YESTERDAY. HE ALSO REPORTS THAT HIS BLOOD PRESSURE HAS BEEN ELEVATED. ON EXAMINATION, HEART IS REGULAR IN RATE AND RHYTHM. BILATERAL LUNGS ARE NOTED WITH DIMINISHED LUNG SOUNDS THROUGHOUT. ABDOMEN IS ROUND, SOFT, AND NOTED WITH MILD, DIFFUSE TENDERNESS TO PALPATION. DECREASED BOWEL SOUNDS NOTED THROUGHOUT. HIS VITALS THIS MORNING ARE 99.2-98-12 -97%-158/113. LABS WERE OBTAINED. ABNORMAL LAB VALUES INCLUDE THE FOLLOWING: WBC 11.7, RBC 4.40, HGB 12.8, HCT 37.5, CARBON DIOXIDE 32.6, BUN 4, CREATININE 0.61, GLUCOSE 178, CALCIUM 8.4, TOTAL PROTEIN 5.5, ALBUMIN 2.7. HE CONTINUES ON IV FLUIDS AND AN INSULIN DRIP THIS MORNING. TODAY, WE WILL INCREASE LISINOPRIL TO 10MG EVERY MORNING AND START AMLODIPINE 5MG PO HS. OTHERWISE, WE PLAN TO FOLLOW UP WITH AM LABS AND CONTINUE TO MONITOR PATIENT. - Past Medical Family Social History Past Med/Fam/Surg Hx: No changes since H&P Allergies: Allergies No Known Drug Allergies Allergy (Verified 10/07/17 10:20) - Review of Systems ROS: No change since H&P - Vital Signs and I&O's Vital Signs: Temperature 98.5 F Pulse Rate [Left Brachial] 92 Pulse Rate 128 Respiratory Rate 10 Blood Pressure [Left Arm] 126/94 Blood Pressure [Right Arm] 165/93 Blood Pressure 113/77 O2 Sat by Pulse Oximetry 97 Intake and Output: Intake & Output 11/11/17 11/12/17 11/13/17 11/14/17 11:59 11:59 11:59 11:59 Intake Total 4507 / 4507 4077 / 4077 5821 / 5821 3146 / 3146 Output Total 1200 / 1200 1425 / 1425 3810 / 3810 2600 / 2600 Balance 3307 / 3307 2652 / 2652 2010 546 / 546 - Physical Exam Oriented: Normal Eyes: Normal Ear: Normal Nose: Normal Throat: Normal Respiratory: Generalized, Diminished Cardiovascular: Tachycardia. negative: S3, S4, Murmur : Normal Auscultation: Bowel Sounds: Decreased Palpation: Normal Tenderness: Diffuse, Mild. negative: Rebound, Guarding, Rigidity Skin: Normal Musculoskeletal: Normal Psychiatric: Normal Mood Description: Calm Affect: Normal Speech Pattern: Clear, Appropriate - Laboratory and Diagnostics Result Diagrams: 11/14/17 05:24 11/14/17 05:24 Labs: Laboratory WBC 9.3 X10^3/uL (3.6-10.0) 11/14/17 05:24 RBC 4.14 X10^6/uL (4.7-6.0) L 11/14/17 05:24 Hgb 12.2 g/dL (13.5-18.0) L 11/14/17 05:24 Hct 35.8 % (42.0-54.0) L 11/14/17 05:24 MCV 86.7 fL (80.0-100.0) 11/14/17 05:24 MCH 29.4 pg (27.0-34.0) 11/14/17 05:24 MCHC 33.9 g/dL (33.0-35.0) 11/14/17 05:24 RDW 14.3 % (11.6-16.5) 11/14/17 05:24 Plt Count 203 X10^3/uL (150.0-450.0) 11/14/17 05:24 MPV 9.0 fL (7.4-11.0) 11/14/17 05:24 Neut % (Auto) 43.1 % (42.0-75.0) 11/14/17 05:24 Lymph % (Auto) 47.2 % (21.0-51.0) 11/14/17 05:24 [place] % (Auto) 8.0 % (0.0-13.0) 11/14/17 05:24 Eos % (Auto) 0.8 % (0.9-2.9) L 11/14/17 05:24 Baso % (Auto) 0.9 % (0.2-1.0) 11/14/17 05:24 Neut # (Auto) 4.0 x10^3/uL (2.2-4.8) 11/14/17 05:24 Lymph # (Auto) 4.4 X10^3/uL (1.3-2.9) H 11/14/17 05:24 [place] # (Auto) 0.7 x10^3/uL (0.3-0.8) 11/14/17 05:24 Eos # (Auto) 0.1 x10^3/uL (0.0-0.2) 11/14/17 05:24 Baso # (Auto) 0.1 X10^3/uL (0.0-0.1) 11/14/17 05:24 Absolute Nucleated RBC 0.0 /100WBC 11/14/17 05:24 Sample Site Lr 11/12/17 04:00 ABG pH 7.480 (7.35-7.45) H 11/12/17 04:00 ABG pCO2 31.0 mmHg (35.0-45.0) L 11/12/17 04:00 ABG pO2 85.0 mmHg (80.0-100.0) 11/12/17 04:00 ABG HCO3 23.1 mmol/L (22-26) 11/12/17 04:00 ABG O2 Saturation 97.0 % (90-100) 11/12/17 04:00 ABG Base Excess 0.3 mmol/L (-2.0-2.0) 11/12/17 04:00 Geoff Test Pos 11/12/17 04:00 A-a Gradient 26.0 mmHg 11/12/17 04:00 FiO2 21.000 11/12/17 04:00 Blood Gas Comments Marva well ae 11/12/17 04:00 Sodium 139 mmol/L (136-145) 11/14/17 05:24 Corrected Sodium 142 mmol/L (136-145) 11/14/17 05:24 Potassium 4.0 mmol/L (3.5-5.1) 11/14/17 05:24 Chloride 102 mmol/L (98-107) 11/14/17 05:24 Carbon Dioxide 30.4 mmol/L (21-32) 11/14/17 05:24 BUN 5 mg/dL (7-18) L 11/14/17 05:24 Creatinine 0.57 mg/dL (0.70-1.30) L 11/14/17 05:24 Est GFR (MDRD) Af Amer > 60 (>60) 11/14/17 05:24 Est GFR (MDRD) Non-Af > 60 (>60) 11/14/17 05:24 Glucose 220 mg/dL (65-99) H 11/14/17 05:24 POC Glucose (mg/dL) 193 mg/dL (65-99) H 11/14/17 04:02 Calcium 8.5 mg/dL (8.5-10.1) 11/14/17 05:24 Corrected Calcium 9.5 mg/dL (8.5-10.1) 11/14/17 05:24 Magnesium 2.0 mg/dL (1.7-2.9) 11/13/17 23:28 Total Bilirubin 0.80 mg/dL (0.2-1.0) 11/14/17 05:24 AST 30 Units/L (15-37) 11/14/17 05:24 ALT 21 Units/L (12-78) 11/14/17 05:24 Alkaline Phosphatase 86 Units/L (46-116) 11/14/17 05:24 Creatine Kinase 40 Units/L (39-308) 11/10/17 12:30 CK-MB (CK-2) 1.0 ng/mL (0-4.0) 11/10/17 12:30 CK/CKMB % Calc 2.5 % (<4) 11/10/17 12:30 Troponin I < 0.02 ng/mL (0-1.5) 11/10/17 12:30 Total Protein 5.7 g/dL (6.4-8.2) L 11/14/17 05:24 Albumin 2.7 g/dL (3.4-5.0) L 11/14/17 05:24 Globulin 3.0 g/dL (2.5-4.5) 11/14/17 05:24 Albumin/Globulin Ratio 0.9 Ratio (1.1-2.1) L 11/14/17 05:24 Lipase 35 Units/L (73-393) L 11/10/17 05:25 Specimen Type Random urine 11/10/17 15:58 Urine Color Yellow (YELLOW) 11/10/17 15:58 Urine Appearance Clear (CLEAR) 11/10/17 15:58 Urine pH 5.0 (5.0 - 8.0) 11/10/17 15:58 Ur Specific [place] 1.020 (1.000-1.030) 11/10/17 15:58 Urine Protein Negative (NEGATIVE) 11/10/17 15:58 Urine Glucose (UA) 4+ (NEGATIVE) 11/10/17 15:58 Urine Ketones 4+ (NEGATIVE) 11/10/17 15:58 Urine Occult Blood 1+ (NEGATIVE) 11/10/17 15:58 Urine Nitrite Negative (NEGATIVE) 11/10/17 15:58 Urine Bilirubin Negative (NEGATIVE) 11/10/17 15:58 Urine Urobilinogen Normal (NORMAL) 11/10/17 15:58 Ur Leukocyte Esterase Negative (NEGATIVE) 11/10/17 15:58 Urine RBC 0-2 /HPF (NONE SEEN) 11/10/17 15:58 Urine WBC 0-2 /HPF (NONE SEEN) 11/10/17 15:58 Ur Squamous Epith Cells Rare /HPF (NEGATIVE) 11/10/17 15:58 Urine Bacteria Trace /HPF (NEGATIVE) 11/10/17 15:58 Urine Mucus Rare /HPF (NEGATIVE) 11/10/17 15:58 Ur Culture Indicated? No/not indicated 11/10/17 15:58 Urine Opiates Screen Negative (NEG=<300) 11/10/17 15:58 Urine Methadone Screen Positive (NEG=<300) 11/10/17 15:58 Ur Barbiturates Screen Negative (NEG=<200) 11/10/17 15:58 Ur Phencyclidine Scrn Negative (NEG=<25) 11/10/17 15:58 Ur Amphetamines Screen Positive (NEG=<1000) 11/10/17 15:58 U Benzodiazepines Scrn Positive (NEG=<200) 11/10/17 15:58 Urine Cocaine Screen Negative (NEG=<300) 11/10/17 15:58 U Marijuana (THC) Screen Negative (NEG=<50) 11/10/17 15:58 Acetone, Semi-Quant Small (NEGATIVE) H 11/14/17 05:24 - Plan (1) Type I diabetes mellitus Status: Chronic Qualifiers: Diabetes mellitus complication status: with hyperglycemia Qualified Code(s) : E10.65 - Type 1 diabetes mellitus with hyperglycemia Plan: NS WITH 20MEQ KCL AND 1 AMP BICARB TO EACH LITER, HUMULIN R INSULIN DRIP, MONITOR OTBS (2) Nausea & vomiting Status: Acute Qualifiers: Vomiting type: unspecified Vomiting Intractability: intractable Qualified Code(s): R11.2 - Nausea with vomiting, unspecified Plan: PHENERGAN 25MG IV Q6H PRN, CONTINUE TO MONITOR (3) Gastroparesis Status: Acute (4) Essential hypertension, benign Status: Chronic Plan: CONTINUE HOME MEDICATIONS (5) Constipation Status: Acute Qualifiers: Constipation type: slow transit constipation Qualified Code(s): K59.01 - Slow transit constipation (6) Hypokalemia Status: Resolved Plan: POTASSIUM PROTOCOL (7) Hypertension Status: Acute Qualifiers: Hypertension type: essential hypertension Qualified Code(s): I10 - Essential (primary) hypertension Plan: LISINOPRIL 10MG PO DAILY, AMLODIPINE 5MG PO HS, CONTINUE TO MONITOR
[2017-11-14] MEDS: MILK OF MAGNESIA PO SCH ×5 (09:21→21:10)
[2017-11-14] MEDS: COLACE CAP 100 MG PO SCH (09:21)
[2017-11-14] MEDS: XANAX PO SCH ×3 (09:22→23:00)
[2017-11-14] MEDS: KCL IV SCH ×8 (09:24→19:38)
[2017-11-14] MEDS: SODIUM BICARBONATE 8.4% IV SCH ×8 (09:24→19:38)
[2017-11-14] MEDS: ZESTRIL TAB 5 MG PO SCH (09:24)
[2017-11-14] MEDS: NS IV SCH ×8 (09:24→19:38)
[2017-11-14] MEDS ORDERED: NS 1/2 + KCL 20 MEQ/L 1,000 ML IV ONE (10:14)
[2017-11-14] MEDS: NORMODYNE INJ 20 MG VIAL IVP PRN (13:11)
[2017-11-14] MEDS: PHENERGAN INJ 25 MG IV PRN (15:11)
[2017-11-14] MEDS: SNACK - Diabetic Appropriate PO SCH (20:10)
[2017-11-14] MEDS: KLONOPIN TAB 1 MG PO SCH (21:09)
[2017-11-14] MEDS: MIRALAX POWDER (1 DOSE 17 G) PO SCH (21:10)
[2017-11-15] MEDS: DEMEROL INJ IVP PRN ×4 (03:20→21:20)
[2017-11-15] MEDS: PHENERGAN INJ 25 MG IV PRN ×3 (05:36→21:20)
[2017-11-15] MEDS: HumuLIN R SUBCUT PRN ×3 (05:39→20:17)
[2017-11-15] MEDS: SODIUM BICARBONATE 8.4% IV SCH ×6 (05:58→15:22)
[2017-11-15] MEDS: KCL IV SCH ×6 (05:58→15:22)
[2017-11-15] MEDS: NS IV SCH ×6 (05:58→15:22)
[2017-11-15 06:44] LABS: BASOPHILS # (AUTO) 0.1 X10^3/uL (0.0-0.1); BASOPHILS % (AUTO) 0.5 % (0.2-1.0); EOSINOPHILS # (AUTO) 0.1 x10^3/uL (0.0-0.2); EOSINOPHILS % (AUTO) 1.2 % (0.9-2.9); LYMPHOCYTES # (AUTO) 3.1 X10^3/uL (1.3-2.9); LYMPHOCYTES % (AUTO) 29.8 % (21.0-51.0); MEAN CORPUSCULAR HEMOGLOBIN 29.5 pg (27.0-34.0); MEAN CORPUSCULAR HGB CONC 33.3 g/dL (33.0-35.0); MEAN CORPUSCULAR VOLUME 88.3 fL (80.0-100.0); MEAN PLATELET VOLUME 10.2 fL (7.4-11.0); MONOCYTES # (AUTO) 0.8 x10^3/uL (0.3-0.8); MONOCYTES % (AUTO) 8.2 % (0.0-13.0); NEUTROPHILS # (AUTO) 6.2 x10^3/uL (2.2-4.8); NEUTROPHILS % (AUTO) 60.3 % (42.0-75.0); PLATELET COUNT 195 X10^3/uL (150.0-450.0); RED BLOOD COUNT 4.08 X10^6/uL (4.7-6.0); RED CELL DISTRIBUTION WIDTH 14.7 % (11.6-16.5); WHITE BLOOD COUNT 10.3 X10^3/uL (3.6-10.0)
[2017-11-15 06:52] LABS: ALANINE AMINOTRANSFERASE 21 Units/L (12-78); ALBUMIN 2.9 g/dL (3.4-5.0); ALKALINE PHOSPHATASE 87 Units/L (46-116); ASPARTATE AMINO TRANSFERASE 21 Units/L (15-37); BLOOD UREA NITROGEN 9 mg/dL (7-18); CALCIUM 8.7 mg/dL (8.5-10.1); CARBON DIOXIDE 23.1 mmol/L (21-32); CHLORIDE 96 mmol/L (98-107); COR CA(FOR HYPOALB) 9.6 mg/dL (8.5-10.1); COR NA(FOR HYPERGLY) 138 mmol/L (136-145); CREATININE 0.59 mg/dL (0.70-1.30); SODIUM 131 mmol/L (136-145); TOTAL PROTEIN 5.9 g/dL (6.4-8.2); eGFR NON BLACK RACES > 60 (>60)
[2017-11-15 06:59] LABS: SERUM ACETONE MODERATE (NEGATIVE)
[2017-11-15] MEDS: TYLENOL 325 MG TAB PO PRN ×2 (07:18→20:18)
[2017-11-15] MEDS: XANAX PO SCH ×3 (07:29→18:27)
[2017-11-15] MEDS: ZOFRAN INJ 4 MG VIAL IVP PRN ×2 (07:38→18:27)
[2017-11-15] MEDS: COLACE CAP 100 MG PO SCH (08:29)
[2017-11-15] MEDS: MILK OF MAGNESIA PO SCH ×4 (08:30→20:17)
[2017-11-15] MEDS: ZESTRIL TAB 5 MG PO SCH ×2 (08:30→11:04)
[2017-11-15] MEDS: NS 1000 ML 1,000 ML with SODIUM BICARBONATE 8.4% INJ ADULT 100 ML IV SCH ×4 (11:04→12:42)
[2017-11-15] MEDS: SNACK - Diabetic Appropriate PO SCH (19:30)
[2017-11-15] MEDS: NORVASC TAB 5 MG PO SCH (20:17)
[2017-11-15] MEDS: KLONOPIN TAB 1 MG PO SCH (20:17)
[2017-11-15] MEDS: MIRALAX POWDER (1 DOSE 17 G) PO SCH (20:17)
[2017-11-15] MEDS ORDERED: NS 1/2 + KCL 20 MEQ/L 1,000 ML IV ONE (20:38)
--- NOTE | 2017-11-15 21:27 | PCM.PROG ---
Progress Note - Progress Note for Day of Date of Exam: 11/14/17 - Subjective Subjective: WAS ADMITTED FOR DEHYDRATION, HYPERGLYCEMIA, GASTROPARESIS, ABDOMINAL PAIN, AND CONSTIPATION. TODAY, HE IS ALERT AND ORIENTED, LYING IN BED ON MORNING ROUNDS. HE CONTINUES WITH COMPLAINTS OF WEAKNESS AND NAUSEA. HE REPORTS THAT NAUSEA HAD IMPROVED, BUT IS WORSE TODAY. ON EXAMINATION, HEART IS REGULAR IN RATE AND RHYTHM. BILATERAL LUNGS ARE NOTED WITH DIMINISHED LUNG SOUNDS THROUGHOUT. ABDOMEN IS ROUND, SOFT, AND NOTED WITH MILD, DIFFUSE TENDERNESS TO PALPATION. DECREASED BOWEL SOUNDS NOTED THROUGHOUT. HIS VITALS THIS MORNING ARE 98.5-92-10-97%-126/94. HIS BLOOD PRESSURE HAS BEEN STABLE SINCE THE INCREASE IN MEDS. LABS WERE OBTAINED. ABNORMAL LAB VALUES INCLUDE THE FOLLOWING: RBC 4.14. HGB 12.2, HCT 35.8, BUN 5, CREATININE 0.57, GLUCOSE 220, TOTAL PROTEIN 5.7, ALBUMIN 2.7, ACETONES MODERATE. HE CONTINUES ON IV FLUIDS AND AN INSULIN DRIP THIS MORNING. TODAY, WE WILL CONTINUE WITH CURRENT PLAN OF CARE. OTHERWISE, WE PLAN TO FOLLOW UP WITH AM LABS AND CONTINUE TO MONITOR PATIENT. - Past Medical Family Social History Past Med/Fam/Surg Hx: No changes since H&P Allergies: Allergies No Known Drug Allergies Allergy (Verified 10/07/17 10:20) - Review of Systems ROS: No change since H&P - Vital Signs and I&O's Vital Signs: Temperature 98.4 F Pulse Rate [Left Brachial] 111 Pulse Rate 128 Respiratory Rate 19 Blood Pressure [Left Arm] 159/100 Blood Pressure [Right Arm] 165/93 Blood Pressure 113/77 O2 Sat by Pulse Oximetry 97 Intake and Output: Intake & Output 11/13/17 11/14/17 11/15/17 11/16/17 11:59 11:59 11:59 11:59 Intake Total 5821 / 5821 3146 / 3146 3562 / 3562 3300 / 3300 Output Total 3810 / 3810 2600 / 2600 3400 / 3400 3580 / 3580 Balance 2010 546 / 546 162 / 162 -280 / -280 - Physical Exam Oriented: Normal Eyes: Normal Ear: Normal Nose: Normal Throat: Normal Respiratory: Generalized, Diminished Cardiovascular: Tachycardia. negative: S3, S4, Murmur : Normal Auscultation: Bowel Sounds: Decreased Palpation: Normal Tenderness: Diffuse, Mild. negative: Rebound, Guarding, Rigidity Skin: Normal Musculoskeletal: Normal Psychiatric: Normal Mood Description: Calm Affect: Normal Speech Pattern: Clear, Appropriate - Laboratory and Diagnostics Result Diagrams: 11/15/17 05:54 11/15/17 05:54 Labs: Laboratory WBC 10.3 X10^3/uL (3.6-10.0) H 11/15/17 05:54 RBC 4.08 X10^6/uL (4.7-6.0) L 11/15/17 05:54 Hgb 12.0 g/dL (13.5-18.0) L 11/15/17 05:54 Hct 36.0 % (42.0-54.0) L 11/15/17 05:54 MCV 88.3 fL (80.0-100.0) 11/15/17 05:54 MCH 29.5 pg (27.0-34.0) 11/15/17 05:54 MCHC 33.3 g/dL (33.0-35.0) 11/15/17 05:54 RDW 14.7 % (11.6-16.5) 11/15/17 05:54 Plt Count 195 X10^3/uL (150.0-450.0) 11/15/17 05:54 MPV 10.2 fL (7.4-11.0) 11/15/17 05:54 Neut % (Auto) 60.3 % (42.0-75.0) 11/15/17 05:54 Lymph % (Auto) 29.8 % (21.0-51.0) 11/15/17 05:54 [place] % (Auto) 8.2 % (0.0-13.0) 11/15/17 05:54 Eos % (Auto) 1.2 % (0.9-2.9) 11/15/17 05:54 Baso % (Auto) 0.5 % (0.2-1.0) 11/15/17 05:54 Neut # (Auto) 6.2 x10^3/uL (2.2-4.8) H 11/15/17 05:54 Lymph # (Auto) 3.1 X10^3/uL (1.3-2.9) H 11/15/17 05:54 [place] # (Auto) 0.8 x10^3/uL (0.3-0.8) 11/15/17 05:54 Eos # (Auto) 0.1 x10^3/uL (0.0-0.2) 11/15/17 05:54 Baso # (Auto) 0.1 X10^3/uL (0.0-0.1) 11/15/17 05:54 Absolute Nucleated RBC 0.0 /100WBC 11/15/17 05:54 Sample Site Lr 11/12/17 04:00 ABG pH 7.480 (7.35-7.45) H 11/12/17 04:00 ABG pCO2 31.0 mmHg (35.0-45.0) L 11/12/17 04:00 ABG pO2 85.0 mmHg (80.0-100.0) 11/12/17 04:00 ABG HCO3 23.1 mmol/L (22-26) 11/12/17 04:00 ABG O2 Saturation 97.0 % (90-100) 11/12/17 04:00 ABG Base Excess 0.3 mmol/L (-2.0-2.0) 11/12/17 04:00 Geoff Test Pos 11/12/17 04:00 A-a Gradient 26.0 mmHg 11/12/17 04:00 FiO2 21.000 11/12/17 04:00 Blood Gas Comments Marva well ae 11/12/17 04:00 Sodium 131 mmol/L (136-145) L 11/15/17 05:54 Corrected Sodium 138 mmol/L (136-145) 11/15/17 05:54 Potassium 4.5 mmol/L (3.5-5.1) 11/15/17 05:54 Chloride 96 mmol/L (98-107) L 11/15/17 05:54 Carbon Dioxide 23.1 mmol/L (21-32) 11/15/17 05:54 BUN 9 mg/dL (7-18) 11/15/17 05:54 Creatinine 0.59 mg/dL (0.70-1.30) L 11/15/17 05:54 Est GFR (MDRD) Af Amer > 60 (>60) 11/15/17 05:54 Est GFR (MDRD) Non-Af > 60 (>60) 11/15/17 05:54 Glucose 379 mg/dL (65-99) H 11/15/17 05:54 POC Glucose (mg/dL) 340 mg/dL (65-99) H 11/15/17 20:00 Calcium 8.7 mg/dL (8.5-10.1) 11/15/17 05:54 Corrected Calcium 9.6 mg/dL (8.5-10.1) 11/15/17 05:54 Magnesium 2.0 mg/dL (1.7-2.9) 11/13/17 23:28 Total Bilirubin 0.90 mg/dL (0.2-1.0) 11/15/17 05:54 AST 21 Units/L (15-37) 11/15/17 05:54 ALT 21 Units/L (12-78) 11/15/17 05:54 Alkaline Phosphatase 87 Units/L (46-116) 11/15/17 05:54 Creatine Kinase 40 Units/L (39-308) 11/10/17 12:30 CK-MB (CK-2) 1.0 ng/mL (0-4.0) 11/10/17 12:30 CK/CKMB % Calc 2.5 % (<4) 11/10/17 12:30 Troponin I < 0.02 ng/mL (0-1.5) 11/10/17 12:30 Total Protein 5.9 g/dL (6.4-8.2) L 11/15/17 05:54 Albumin 2.9 g/dL (3.4-5.0) L 11/15/17 05:54 Globulin 3.0 g/dL (2.5-4.5) 11/15/17 05:54 Albumin/Globulin Ratio 1.0 Ratio (1.1-2.1) L 11/15/17 05:54 Lipase 35 Units/L (73-393) L 11/10/17 05:25 Specimen Type Random urine 11/10/17 15:58 Urine Color Yellow (YELLOW) 11/10/17 15:58 Urine Appearance Clear (CLEAR) 11/10/17 15:58 Urine pH 5.0 (5.0 - 8.0) 11/10/17 15:58 Ur Specific [place] 1.020 (1.000-1.030) 11/10/17 15:58 Urine Protein Negative (NEGATIVE) 11/10/17 15:58 Urine Glucose (UA) 4+ (NEGATIVE) 11/10/17 15:58 Urine Ketones 4+ (NEGATIVE) 11/10/17 15:58 Urine Occult Blood 1+ (NEGATIVE) 11/10/17 15:58 Urine Nitrite Negative (NEGATIVE) 11/10/17 15:58 Urine Bilirubin Negative (NEGATIVE) 11/10/17 15:58 Urine Urobilinogen Normal (NORMAL) 11/10/17 15:58 Ur Leukocyte Esterase Negative (NEGATIVE) 11/10/17 15:58 Urine RBC 0-2 /HPF (NONE SEEN) 11/10/17 15:58 Urine WBC 0-2 /HPF (NONE SEEN) 11/10/17 15:58 Ur Squamous Epith Cells Rare /HPF (NEGATIVE) 11/10/17 15:58 Urine Bacteria Trace /HPF (NEGATIVE) 11/10/17 15:58 Urine Mucus Rare /HPF (NEGATIVE) 11/10/17 15:58 Ur Culture Indicated? No/not indicated 11/10/17 15:58 Urine Opiates Screen Negative (NEG=<300) 11/10/17 15:58 Urine Methadone Screen Positive (NEG=<300) 11/10/17 15:58 Ur Barbiturates Screen Negative (NEG=<200) 11/10/17 15:58 Ur Phencyclidine Scrn Negative (NEG=<25) 11/10/17 15:58 Ur Amphetamines Screen Positive (NEG=<1000) 11/10/17 15:58 U Benzodiazepines Scrn Positive (NEG=<200) 11/10/17 15:58 Urine Cocaine Screen Negative (NEG=<300) 11/10/17 15:58 U Marijuana (THC) Screen Negative (NEG=<50) 11/10/17 15:58 Acetone, Semi-Quant Moderate (NEGATIVE) H 11/15/17 05:54 - Plan (1) Type I diabetes mellitus Status: Chronic Qualifiers: Diabetes mellitus complication status: with hyperglycemia Qualified Code(s) : E10.65 - Type 1 diabetes mellitus with hyperglycemia Plan: NS WITH 20MEQ KCL AND 2 AMPS BICARB TO EACH LITER, HUMULIN R INSULIN DRIP , MONITOR OTBS (2) Essential hypertension, benign Status: Chronic Plan: CONTINUE HOME MEDICATIONS (3) Constipation Status: Acute Qualifiers: Constipation type: slow transit constipation Qualified Code(s): K59.01 - Slow transit constipation (4) Hypertension Status: Acute Qualifiers: Hypertension type: essential hypertension Qualified Code(s): I10 - Essential (primary) hypertension Plan: LISINOPRIL 10MG PO DAILY, AMLODIPINE 5MG PO HS, CONTINUE TO MONITOR
[2017-11-15] MEDS: NORMODYNE INJ 20 MG VIAL IVP PRN (22:05)
[2017-11-16] MEDS ORDERED: PEPCID 20 MG IV PREMIX* 50 ML IV ONE ×3 (01:39→01:59)
[2017-11-16] MEDS ORDERED: PEPCID 20 MG IV PREMIX* 20 MG/50 ML BAG IV ONE ×2 (01:43→02:07)
[2017-11-16] MEDS: ZOFRAN INJ 4 MG VIAL IVP PRN (01:45)
[2017-11-16] MEDS ORDERED: SODIUM BICARBONATE 8.4% INJ ADULT ONE (01:53)
[2017-11-16] MEDS: XANAX PO SCH ×5 (01:56→21:28)
[2017-11-16] MEDS: NS IV SCH ×8 (02:11→22:44)
[2017-11-16] MEDS: KCL IV SCH ×8 (02:11→22:44)
[2017-11-16] MEDS: SODIUM BICARBONATE 8.4% IV SCH ×8 (02:11→22:44)
[2017-11-16] MEDS: PHENERGAN INJ 25 MG IV PRN ×4 (03:15→22:44)
[2017-11-16] MEDS: DEMEROL INJ IVP PRN ×4 (03:15→22:44)
[2017-11-16 05:38] LABS: ABG BASE EXCESS -9.3 mmol/L (-2.0-2.0)
[2017-11-16 05:40] LABS: ABG HCO3 13.6 mmol/L (22-26)
[2017-11-16 06:12] LABS: ALANINE AMINOTRANSFERASE 19 Units/L (12-78); ALBUMIN 3.1 g/dL (3.4-5.0); ALKALINE PHOSPHATASE 78 Units/L (46-116); ASPARTATE AMINO TRANSFERASE 14 Units/L (15-37); BASOPHILS % (AUTO) 0.4 % (0.2-1.0); BLOOD UREA NITROGEN 7 mg/dL (7-18); CALCIUM 8.8 mg/dL (8.5-10.1); CARBON DIOXIDE 15.9 mmol/L (21-32); CHLORIDE 97 mmol/L (98-107); COR CA(FOR HYPOALB) 9.5 mg/dL (8.5-10.1); COR NA(FOR HYPERGLY) 140 mmol/L (136-145); CREATININE 0.73 mg/dL (0.70-1.30); EOSINOPHILS % (AUTO) 0.3 % (0.9-2.9); HEMATOCRIT 35.3 % (42.0-54.0); HEMOGLOBIN 11.9 g/dL (13.5-18.0); LYMPHOCYTES % (AUTO) 25.4 % (21.0-51.0); MEAN CORPUSCULAR HEMOGLOBIN 29.8 pg (27.0-34.0); MEAN CORPUSCULAR HGB CONC 33.8 g/dL (33.0-35.0); MEAN CORPUSCULAR VOLUME 88.2 fL (80.0-100.0); MEAN PLATELET VOLUME 9.3 fL (7.4-11.0); MONOCYTES # (AUTO) 0.9 x10^3/uL (0.3-0.8); MONOCYTES % (AUTO) 7.4 % (0.0-13.0); NEUTROPHILS # (AUTO) 7.8 x10^3/uL (2.2-4.8); NEUTROPHILS % (AUTO) 66.5 % (42.0-75.0); PLATELET COUNT 284 X10^3/uL (150.0-450.0); RED BLOOD COUNT 3.99 X10^6/uL (4.7-6.0); RED CELL DISTRIBUTION WIDTH 14.3 % (11.6-16.5); SODIUM 135 mmol/L (136-145); TOTAL PROTEIN 6.3 g/dL (6.4-8.2); WHITE BLOOD COUNT 11.7 X10^3/uL (3.6-10.0); eGFR NON BLACK RACES > 60 (>60)
[2017-11-16] MEDS: HumuLIN R SUBCUT PRN ×4 (06:25→21:34)
[2017-11-16] MEDS: COLACE CAP 100 MG PO SCH (09:00)
[2017-11-16] MEDS: ZESTRIL TAB 5 MG PO SCH (09:01)
[2017-11-16] MEDS: MILK OF MAGNESIA PO SCH ×4 (09:05→21:26)
[2017-11-16 10:36] LABS: CKMB % 4.2 % (<4); CREATINE KINASE 24 Units/L (39-308); CREATINE KINASE MB < 1.0 ng/mL (0-4.0); TROPONIN I < 0.02 ng/mL (0-1.5)
--- NOTE | 2017-11-16 11:31 | PCM.PROG ---
Progress Note - Progress Note for Day of Date of Exam: 11/15/17 - Subjective Subjective: WAS ADMITTED FOR DEHYDRATION, HYPERGLYCEMIA, GASTROPARESIS, ABDOMINAL PAIN, AND CONSTIPATION. TODAY, HE IS ALERT AND ORIENTED, LYING IN BED ON MORNING ROUNDS. HE IS NOTED WITH COMPLAINTS OF INCREASED NAUSEA AND VOMITING THIS MORNING. ON EXAMINATION, HEART IS REGULAR IN RATE AND RHYTHM. BILATERAL LUNGS ARE NOTED WITH DIMINISHED LUNG SOUNDS THROUGHOUT. ABDOMEN IS ROUND, SOFT, AND NOTED WITH MILD, DIFFUSE TENDERNESS TO PALPATION. DECREASED BOWEL SOUNDS NOTED THROUGHOUT. HIS VITALS THIS MORNING ARE 98.1-111-19-98%-172/110. LABS WERE OBTAINED. ABNORMAL LAB VALUES INCLUDE THE FOLLOWING: WBC 10.3, RBC 4.08, HGB 12.0, HCT 36.0, SODIUM 131, CHLORIDE 96, CREATININE 0.59, GLUCOSE 379, TOTAL PROTEIN 5.9, ALBUMIN 2.9, URINE ACETONES MODERATE. HE CONTINUES ON IV FLUIDS AND AN INSULIN DRIP THIS MORNING. TODAY, WE WILL BOLUS TWO LITERS OF NORMAL SALINE WITH 2 AMPS SODIUM BICARB IN EACH BAG, THEN INCREASE MAINTENANCE FLUIDS TO 150 ML/HR. WE WILL INCREASE HIS LISINOPRIL TO 20MG PO BID. OTHERWISE, WE WILL CONTINUE WITH CURRENT PLAN OF CARE. WE PLAN TO FOLLOW UP WITH AM LABS AND CONTINUE TO MONITOR PATIENT. - Past Medical Family Social History Past Med/Fam/Surg Hx: No changes since H&P Allergies: Allergies No Known Drug Allergies Allergy (Verified 10/07/17 10:20) - Review of Systems ROS: No change since H&P - Vital Signs and I&O's Vital Signs: Temperature 99.4 F Pulse Rate [Left Brachial] 141 Pulse Rate 128 Respiratory Rate 26 Blood Pressure [Left Arm] 154/103 Blood Pressure [Right Arm] 165/93 Blood Pressure 113/77 O2 Sat by Pulse Oximetry 97 Intake and Output: Intake & Output 11/13/17 11/14/17 11/15/17 11/16/17 11:59 11:59 11:59 11:59 Intake Total 5821 / 5821 3146 / 3146 3562 / 3562 4979 / 4979 Output Total 3810 / 3810 2600 / 2600 3400 / 3400 7160 / 7160 Balance 2010 546 / 546 162 / 162 -2181 / -2181 - Physical Exam Oriented: Normal Eyes: Normal Ear: Normal Nose: Normal Throat: Normal Respiratory: Generalized, Diminished Cardiovascular: Tachycardia. negative: S3, S4, Murmur : Normal Auscultation: Bowel Sounds: Decreased Palpation: Normal Tenderness: Diffuse, Mild. negative: Rebound, Guarding, Rigidity Skin: Normal Musculoskeletal: Normal Psychiatric: Normal Mood Description: Calm Affect: Normal Speech Pattern: Clear, Appropriate - Laboratory and Diagnostics Result Diagrams: 11/16/17 05:25 11/16/17 05:25 Labs: Laboratory WBC 11.7 X10^3/uL (3.6-10.0) H 11/16/17 05:25 RBC 3.99 X10^6/uL (4.7-6.0) L 11/16/17 05:25 Hgb 11.9 g/dL (13.5-18.0) L 11/16/17 05:25 Hct 35.3 % (42.0-54.0) L 11/16/17 05:25 MCV 88.2 fL (80.0-100.0) 11/16/17 05:25 MCH 29.8 pg (27.0-34.0) 11/16/17 05:25 MCHC 33.8 g/dL (33.0-35.0) 11/16/17 05:25 RDW 14.3 % (11.6-16.5) 11/16/17 05:25 Plt Count 284 X10^3/uL (150.0-450.0) 11/16/17 05:25 MPV 9.3 fL (7.4-11.0) 11/16/17 05:25 Neut % (Auto) 66.5 % (42.0-75.0) 11/16/17 05:25 Lymph % (Auto) 25.4 % (21.0-51.0) 11/16/17 05:25 [place] % (Auto) 7.4 % (0.0-13.0) 11/16/17 05:25 Eos % (Auto) 0.3 % (0.9-2.9) L 11/16/17 05:25 Baso % (Auto) 0.4 % (0.2-1.0) 11/16/17 05:25 Neut # (Auto) 7.8 x10^3/uL (2.2-4.8) H 11/16/17 05:25 Lymph # (Auto) 3.0 X10^3/uL (1.3-2.9) H 11/16/17 05:25 [place] # (Auto) 0.9 x10^3/uL (0.3-0.8) H 11/16/17 05:25 Eos # (Auto) 0.0 x10^3/uL (0.0-0.2) 11/16/17 05:25 Baso # (Auto) 0.0 X10^3/uL (0.0-0.1) 11/16/17 05:25 Absolute Nucleated RBC 0.1 /100WBC 11/16/17 05:25 Sample Site Rbra 11/16/17 05:28 ABG pH 7.400 (7.35-7.45) 11/16/17 05:28 ABG pCO2 22.0 mmHg (35.0-45.0) L 11/16/17 05:28 ABG pO2 91.0 mmHg (80.0-100.0) 11/16/17 05:28 ABG HCO3 13.6 mmol/L (22-26) L* 11/16/17 05:28 ABG O2 Saturation 97.0 % (90-100) 11/16/17 05:28 ABG Base Excess -9.3 mmol/L (-2.0-2.0) L 11/16/17 05:28 Geoff Test Na 11/16/17 05:28 A-a Gradient 31.0 mmHg 11/16/17 05:28 FiO2 21.000 11/16/17 05:28 Blood Gas Comments Marva abg well-mtf 11/16/17 05:28 Sodium 135 mmol/L (136-145) L 11/16/17 05:25 Corrected Sodium 140 mmol/L (136-145) 11/16/17 05:25 Potassium 4.6 mmol/L (3.5-5.1) 11/16/17 05:25 Chloride 97 mmol/L (98-107) L 11/16/17 05:25 Carbon Dioxide 15.9 mmol/L (21-32) L 11/16/17 05:25 BUN 7 mg/dL (7-18) 11/16/17 05:25 Creatinine 0.73 mg/dL (0.70-1.30) 11/16/17 05:25 Est GFR (MDRD) Af Amer > 60 (>60) 11/16/17 05:25 Est GFR (MDRD) Non-Af > 60 (>60) 11/16/17 05:25 Glucose 294 mg/dL (65-99) H 11/16/17 05:25 POC Glucose (mg/dL) 192 mg/dL (65-99) H 11/16/17 10:54 Calcium 8.8 mg/dL (8.5-10.1) 11/16/17 05:25 Corrected Calcium 9.5 mg/dL (8.5-10.1) 11/16/17 05:25 Magnesium 2.0 mg/dL (1.7-2.9) 11/13/17 23:28 Total Bilirubin 0.60 mg/dL (0.2-1.0) 11/16/17 05:25 AST 14 Units/L (15-37) L 11/16/17 05:25 ALT 19 Units/L (12-78) 11/16/17 05:25 Alkaline Phosphatase 78 Units/L (46-116) 11/16/17 05:25 Creatine Kinase 24 Units/L (39-308) L 11/16/17 10:00 CK-MB (CK-2) < 1.0 ng/mL (0-4.0) 11/16/17 10:00 CK/CKMB % Calc 4.2 % (<4) 11/16/17 10:00 Troponin I < 0.02 ng/mL (0-1.5) 11/16/17 10:00 Total Protein 6.3 g/dL (6.4-8.2) L 11/16/17 05:25 Albumin 3.1 g/dL (3.4-5.0) L 11/16/17 05:25 Globulin 3.2 g/dL (2.5-4.5) 11/16/17 05:25 Albumin/Globulin Ratio 1.0 Ratio (1.1-2.1) L 11/16/17 05:25 Lipase 35 Units/L (73-393) L 11/10/17 05:25 Specimen Type Random urine 11/10/17 15:58 Urine Color Yellow (YELLOW) 11/10/17 15:58 Urine Appearance Clear (CLEAR) 11/10/17 15:58 Urine pH 5.0 (5.0 - 8.0) 11/10/17 15:58 Ur Specific [place] 1.020 (1.000-1.030) 11/10/17 15:58 Urine Protein Negative (NEGATIVE) 11/10/17 15:58 Urine Glucose (UA) 4+ (NEGATIVE) 11/10/17 15:58 Urine Ketones 4+ (NEGATIVE) 11/10/17 15:58 Urine Occult Blood 1+ (NEGATIVE) 11/10/17 15:58 Urine Nitrite Negative (NEGATIVE) 11/10/17 15:58 Urine Bilirubin Negative (NEGATIVE) 11/10/17 15:58 Urine Urobilinogen Normal (NORMAL) 11/10/17 15:58 Ur Leukocyte Esterase Negative (NEGATIVE) 11/10/17 15:58 Urine RBC 0-2 /HPF (NONE SEEN) 11/10/17 15:58 Urine WBC 0-2 /HPF (NONE SEEN) 11/10/17 15:58 Ur Squamous Epith Cells Rare /HPF (NEGATIVE) 11/10/17 15:58 Urine Bacteria Trace /HPF (NEGATIVE) 11/10/17 15:58 Urine Mucus Rare /HPF (NEGATIVE) 11/10/17 15:58 Ur Culture Indicated? No/not indicated 11/10/17 15:58 Urine Opiates Screen Negative (NEG=<300) 11/10/17 15:58 Urine Methadone Screen Positive (NEG=<300) 11/10/17 15:58 Ur Barbiturates Screen Negative (NEG=<200) 11/10/17 15:58 Ur Phencyclidine Scrn Negative (NEG=<25) 11/10/17 15:58 Ur Amphetamines Screen Positive (NEG=<1000) 11/10/17 15:58 U Benzodiazepines Scrn Positive (NEG=<200) 11/10/17 15:58 Urine Cocaine Screen Negative (NEG=<300) 11/10/17 15:58 U Marijuana (THC) Screen Negative (NEG=<50) 11/10/17 15:58 Acetone, Semi-Quant Small (NEGATIVE) H 11/16/17 05:20 - Plan (1) Type I diabetes mellitus Status: Chronic Qualifiers: Diabetes mellitus complication status: with hyperglycemia Qualified Code(s) : E10.65 - Type 1 diabetes mellitus with hyperglycemia Plan: BOLUS 2 LITERS NS WITH 2 AMPS BICARB EACH THEN NS WITH 20MEQ KCL AND 2 AMPS BICARB TO EACH LITER AT 150ML/HR, HUMULIN R INSULIN DRIP, MONITOR OTBS (2) Essential hypertension, benign Status: Chronic Plan: CONTINUE HOME MEDICATIONS (3) Constipation Status: Acute Qualifiers: Constipation type: slow transit constipation Qualified Code(s): K59.01 - Slow transit constipation (4) Hypertension Status: Acute Qualifiers: Hypertension type: essential hypertension Qualified Code(s): I10 - Essential (primary) hypertension Plan: LISINOPRIL 20MG PO BID, AMLODIPINE 5MG PO HS, CONTINUE TO MONITOR
--- NOTE | 2017-11-16 13:07 | CT ---
Examination: CT of the chest without contrast Clinical History: Acute shortness of breath when standing. Technique: Multiple axial images were obtained from the lung apices down to the lung bases. No intrav enous contrast was administered. Dose reduction techniques including automated exposure control (AEC) and adjustment of mA and kV were utilized. Comparison: Chest x-ray dated 10/26/2017. Findings: A MediPort type catheter is seen overlying the right hemithorax with the tip terminating at the cavoa trial junction. The thyroid gland is unremarkable. The heart is normal in size. Mild coronary artery calcifications are noted, suggestive of coronary ar aria disease. No pericardial effusion is noted. The thoracic aorta is normal in caliber. The remainder of the great vessels are within normal limits. The lungs are clear. Evaluation of the hilar and mediastinal structures is limited due to a lack of intravenous contrast. No enlarged lymph nodes, by CT criteria, are noted in the mediastinum, ariadna or axilla bilaterally. No central obstructing bronchial lesion is noted. No pneumothorax or pleural effusion is noted. The visualized portion of the upper abdomen is unremarkable. No acute osseous abnormality is noted. Impression: 1. No acute cardiopulmonary pathology. 2. Mild coronary artery calcifications are noted, suggestive of coronary artery disease. Reported By:
[2017-11-16 15:12] LABS: CREATINE KINASE 25 Units/L (39-308); CREATINE KINASE MB < 1.0 ng/mL (0-4.0); TROPONIN I < 0.02 ng/mL (0-1.5)
[2017-11-16 18:29] LABS: CKMB % 4.6 % (<4); CREATINE KINASE 22 Units/L (39-308); CREATINE KINASE MB < 1.0 ng/mL (0-4.0); TROPONIN I < 0.02 ng/mL (0-1.5)
[2017-11-16] MEDS ORDERED: ZESTRIL TAB 20 MG ONE (20:35)
[2017-11-16] MEDS ORDERED: ZESTRIL TAB 5 MG PO SCH (21:00)
[2017-11-16] MEDS: MIRALAX POWDER (1 DOSE 17 G) PO SCH (21:27)
[2017-11-16] MEDS: SNACK - Diabetic Appropriate PO SCH (21:27)
[2017-11-16] MEDS: KLONOPIN TAB 1 MG PO SCH (21:28)
[2017-11-16] MEDS: ZESTRIL TAB 20 MG PO SCH (21:30)
[2017-11-16] MEDS: NORVASC TAB 5 MG PO SCH (21:30)
[2017-11-17] MEDS: PHENERGAN INJ 25 MG IV PRN ×4 (05:30→19:57)
[2017-11-17 05:42] LABS: ABG BASE EXCESS -0.2 mmol/L (-2.0-2.0)
[2017-11-17 05:43] LABS: ABG ALLEN TEST POS
[2017-11-17] MEDS: NS IV SCH ×6 (05:50→16:36)
[2017-11-17] MEDS: XANAX PO SCH ×3 (05:50→21:05)
[2017-11-17] MEDS: DEMEROL INJ IVP PRN ×4 (05:50→19:57)
[2017-11-17] MEDS: KCL IV SCH ×6 (05:50→16:36)
[2017-11-17] MEDS: SODIUM BICARBONATE 8.4% IV SCH ×6 (05:50→16:36)
[2017-11-17 06:01] LABS: SERUM ACETONE MODERATE (NEGATIVE)
[2017-11-17 06:04] LABS: BASOPHILS # (AUTO) 0.1 X10^3/uL (0.0-0.1); BASOPHILS % (AUTO) 0.6 % (0.2-1.0); EOSINOPHILS # (AUTO) 0.4 x10^3/uL (0.0-0.2); EOSINOPHILS % (AUTO) 2.9 % (0.9-2.9); HEMATOCRIT 35.1 % (42.0-54.0); HEMOGLOBIN 11.9 g/dL (13.5-18.0); LYMPHOCYTES # (AUTO) 6.4 X10^3/uL (1.3-2.9); LYMPHOCYTES % (AUTO) 48.3 % (21.0-51.0); MEAN CORPUSCULAR HEMOGLOBIN 29.7 pg (27.0-34.0); MEAN CORPUSCULAR HGB CONC 33.8 g/dL (33.0-35.0); MEAN CORPUSCULAR VOLUME 87.9 fL (80.0-100.0); MEAN PLATELET VOLUME 8.8 fL (7.4-11.0); MONOCYTES % (AUTO) 7.4 % (0.0-13.0); NEUTROPHILS # (AUTO) 5.4 x10^3/uL (2.2-4.8); NEUTROPHILS % (AUTO) 40.8 % (42.0-75.0); PLATELET COUNT 292 X10^3/uL (150.0-450.0); RED BLOOD COUNT 3.99 X10^6/uL (4.7-6.0); RED CELL DISTRIBUTION WIDTH 14.4 % (11.6-16.5); WHITE BLOOD COUNT 13.2 X10^3/uL (3.6-10.0)
[2017-11-17 06:12] LABS: ALANINE AMINOTRANSFERASE 18 Units/L (12-78); ALBUMIN 2.8 g/dL (3.4-5.0); ALKALINE PHOSPHATASE 69 Units/L (46-116); ASPARTATE AMINO TRANSFERASE 10 Units/L (15-37); BLOOD UREA NITROGEN 9 mg/dL (7-18); CALCIUM 8.5 mg/dL (8.5-10.1); CARBON DIOXIDE 24.2 mmol/L (21-32); CHLORIDE 103 mmol/L (98-107); COR CA(FOR HYPOALB) 9.5 mg/dL (8.5-10.1); COR NA(FOR HYPERGLY) 140 mmol/L (136-145); CREATININE 0.74 mg/dL (0.70-1.30); SODIUM 139 mmol/L (136-145); TOTAL PROTEIN 5.8 g/dL (6.4-8.2); eGFR NON BLACK RACES > 60 (>60)
[2017-11-17] MEDS ORDERED: ZESTRIL TAB 20 MG ONE ×2 (08:10→20:06)
[2017-11-17] MEDS: MILK OF MAGNESIA PO SCH ×3 (09:16→20:11)
[2017-11-17] MEDS: COLACE CAP 100 MG PO SCH (09:16)
[2017-11-17] MEDS: ZESTRIL TAB 20 MG PO SCH ×2 (09:16→20:13)
[2017-11-17] MEDS: HumuLIN R SUBCUT PRN ×3 (11:40→20:13)
[2017-11-17] MEDS: ZOFRAN INJ 4 MG VIAL IVP PRN ×2 (13:45→19:04)
[2017-11-17] MEDS ORDERED: NS 1000 ML 1,000 ML ONE (14:57)
[2017-11-17] MEDS ORDERED: NS 1000 ML 1,000 ML IV ONE (15:04)
[2017-11-17] MEDS ORDERED: NORMODYNE INJ 100 MG VIAL ONE (16:31)
[2017-11-17] MEDS: NORMODYNE INJ 20 MG VIAL IVP PRN ×2 (16:35→17:05)
[2017-11-17] MEDS: SNACK - Diabetic Appropriate PO SCH (20:03)
[2017-11-17] MEDS: NORVASC TAB 5 MG PO SCH (20:12)
[2017-11-17] MEDS: MIRALAX POWDER (1 DOSE 17 G) PO SCH (20:12)
[2017-11-17] MEDS: KLONOPIN TAB 1 MG PO SCH (20:12)
[2017-11-18] MEDS: NS IV SCH ×14 (01:37→21:01)
[2017-11-18] MEDS: SODIUM BICARBONATE 8.4% IV SCH ×14 (01:37→21:01)
[2017-11-18] MEDS: KCL IV SCH ×14 (01:37→21:01)
[2017-11-18] MEDS: DEMEROL INJ IVP PRN ×5 (01:38→19:42)
[2017-11-18] MEDS: PHENERGAN INJ 25 MG IV PRN ×4 (01:38→19:40)
[2017-11-18] MEDS: ZOFRAN INJ 4 MG VIAL IVP PRN ×4 (03:50→21:07)
[2017-11-18] MEDS: NORMODYNE INJ 20 MG VIAL IVP PRN (04:18)
[2017-11-18] MEDS ORDERED: PEPCID TAB 20 MG PO ONE (05:48)
[2017-11-18 05:52] LABS: BASOPHILS # (AUTO) 0.1 X10^3/uL (0.0-0.1); BASOPHILS % (AUTO) 0.8 % (0.2-1.0); EOSINOPHILS # (AUTO) 0.1 x10^3/uL (0.0-0.2); EOSINOPHILS % (AUTO) 0.7 % (0.9-2.9); HEMATOCRIT 38.5 % (42.0-54.0); HEMOGLOBIN 12.6 g/dL (13.5-18.0); LYMPHOCYTES % (AUTO) 19.1 % (21.0-51.0); MEAN CORPUSCULAR HEMOGLOBIN 29.3 pg (27.0-34.0); MEAN CORPUSCULAR HGB CONC 32.6 g/dL (33.0-35.0); MEAN PLATELET VOLUME 8.6 fL (7.4-11.0); MONOCYTES # (AUTO) 1.1 x10^3/uL (0.3-0.8); MONOCYTES % (AUTO) 7.2 % (0.0-13.0); NEUTROPHILS # (AUTO) 11.2 x10^3/uL (2.2-4.8); NEUTROPHILS % (AUTO) 72.2 % (42.0-75.0); PLATELET COUNT 342 X10^3/uL (150.0-450.0); RED BLOOD COUNT 4.28 X10^6/uL (4.7-6.0); WHITE BLOOD COUNT 15.5 X10^3/uL (3.6-10.0)
[2017-11-18] MEDS: XANAX PO SCH ×4 (05:53→21:00)
[2017-11-18] MEDS ORDERED: PEPCID 20 MG IV PREMIX* 20 MG/50 ML BAG IV ONE (06:00)
[2017-11-18 06:01] LABS: ALANINE AMINOTRANSFERASE 15 Units/L (12-78); ALBUMIN 3.2 g/dL (3.4-5.0); ALKALINE PHOSPHATASE 83 Units/L (46-116); ASPARTATE AMINO TRANSFERASE 10 Units/L (15-37); BLOOD UREA NITROGEN 6 mg/dL (7-18); CALCIUM 8.7 mg/dL (8.5-10.1); CHLORIDE 97 mmol/L (98-107); COR CA(FOR HYPOALB) 9.3 mg/dL (8.5-10.1); COR NA(FOR HYPERGLY) 142 mmol/L (136-145); CREATININE 0.86 mg/dL (0.70-1.30); SODIUM 135 mmol/L (136-145); TOTAL PROTEIN 6.3 g/dL (6.4-8.2); eGFR NON BLACK RACES > 60 (>60)
[2017-11-18 06:03] LABS: ABG BASE EXCESS -13.9 mmol/L (-2.0-2.0)
[2017-11-18 06:04] LABS: ABG ALLEN TEST POS
[2017-11-18 06:13] LABS: CARBON DIOXIDE 12.1 mmol/L (21-32)
[2017-11-18] MEDS: HumuLIN R SUBCUT PRN (06:17)
[2017-11-18] MEDS ORDERED: ZESTRIL TAB 20 MG ONE ×2 (08:27→20:42)
[2017-11-18] MEDS: COLACE CAP 100 MG PO SCH (08:30)
[2017-11-18] MEDS: ZESTRIL TAB 20 MG PO SCH ×2 (08:30→20:57)
[2017-11-18] MEDS: MILK OF MAGNESIA PO SCH ×3 (08:30→20:58)
[2017-11-18] MEDS ORDERED: SODIUM BICARBONATE 8.4% INJ ADULT ONE (09:02)
[2017-11-18] MEDS ORDERED: COLACE CAP 100 MG PO ONE (09:27)
[2017-11-18] MEDS ORDERED: PHARMACY CONSULT - DOSE _____ XX SCH (10:00)
[2017-11-18] MEDS ORDERED: HumuLIN 70/30 (NovoLIN 70/30) SC ONE (11:00)
[2017-11-18] MEDS ORDERED: DULCOLAX TAB EC 5 MG PO ONE (13:28)
[2017-11-18] MEDS ORDERED: SNACK - Diabetic Appropriate PO SCH (20:00)
[2017-11-18] MEDS: SNACK - Diabetic Appropriate PO SCH (20:03)
[2017-11-18] MEDS ORDERED: KCL IV ONE (20:38)
[2017-11-18] MEDS ORDERED: NS IV ONE (20:38)
[2017-11-18] MEDS: NORVASC TAB 5 MG PO SCH (20:57)
[2017-11-18] MEDS: KLONOPIN TAB 1 MG PO SCH (20:57)
[2017-11-18] MEDS: MIRALAX POWDER (1 DOSE 17 G) PO SCH (20:58)
[2017-11-18] MEDS: LEVEMIR SC SCH (20:59)
[2017-11-19] MEDS ORDERED: D50W ABBOJECT SYR ONE (00:52)
[2017-11-19] MEDS: DEMEROL INJ IVP PRN ×5 (00:55→18:32)
[2017-11-19] MEDS: ZOFRAN INJ 4 MG VIAL IVP PRN ×2 (00:55→13:35)
[2017-11-19] MEDS ORDERED: D50W ABBOJECT SYR IV ONE (00:59)
[2017-11-19] MEDS: KCL IV SCH ×10 (02:30→18:14)
[2017-11-19] MEDS: NS IV SCH ×10 (02:30→18:14)
[2017-11-19] MEDS: SODIUM BICARBONATE 8.4% IV SCH ×10 (02:30→18:14)
[2017-11-19] MEDS: PHENERGAN INJ 25 MG IV PRN ×3 (05:20→20:44)
[2017-11-19] MEDS: XANAX PO SCH ×3 (05:44→21:52)
[2017-11-19 05:55] LABS: ABG BASE EXCESS 12.6 mmol/L (-2.0-2.0)
[2017-11-19 05:56] LABS: ABG ALLEN TEST POS; ABG HCO3 36.8 mmol/L (22-26)
[2017-11-19 05:58] LABS: BASOPHILS # (AUTO) 0.1 X10^3/uL (0.0-0.1); BASOPHILS % (AUTO) 0.5 % (0.2-1.0); EOSINOPHILS # (AUTO) 0.2 x10^3/uL (0.0-0.2); EOSINOPHILS % (AUTO) 1.5 % (0.9-2.9); HEMATOCRIT 31.2 % (42.0-54.0); HEMOGLOBIN 10.8 g/dL (13.5-18.0); LYMPHOCYTES # (AUTO) 5.8 X10^3/uL (1.3-2.9); LYMPHOCYTES % (AUTO) 48.9 % (21.0-51.0); MEAN CORPUSCULAR HEMOGLOBIN 30.1 pg (27.0-34.0); MEAN CORPUSCULAR HGB CONC 34.8 g/dL (33.0-35.0); MEAN CORPUSCULAR VOLUME 86.6 fL (80.0-100.0); MEAN PLATELET VOLUME 7.8 fL (7.4-11.0); MONOCYTES # (AUTO) 1.1 x10^3/uL (0.3-0.8); MONOCYTES % (AUTO) 9.5 % (0.0-13.0); NEUTROPHILS # (AUTO) 4.7 x10^3/uL (2.2-4.8); NEUTROPHILS % (AUTO) 39.6 % (42.0-75.0); PLATELET COUNT 291 X10^3/uL (150.0-450.0); RED CELL DISTRIBUTION WIDTH 14.5 % (11.6-16.5); WHITE BLOOD COUNT 11.9 X10^3/uL (3.6-10.0)
[2017-11-19 06:08] LABS: ALANINE AMINOTRANSFERASE 14 Units/L (12-78); ALBUMIN 2.7 g/dL (3.4-5.0); ALKALINE PHOSPHATASE 64 Units/L (46-116); ASPARTATE AMINO TRANSFERASE 8 Units/L (15-37); BLOOD UREA NITROGEN 5 mg/dL (7-18); CHLORIDE 102 mmol/L (98-107); TOTAL PROTEIN 5.2 g/dL (6.4-8.2); eGFR NON BLACK RACES > 60 (>60)
[2017-11-19 06:20] LABS: CALCIUM 8.3 mg/dL (8.5-10.1); CARBON DIOXIDE 32.8 mmol/L (21-32); COR CA(FOR HYPOALB) 9.3 mg/dL (8.5-10.1); CREATININE 0.78 mg/dL (0.70-1.30)
[2017-11-19 06:24] LABS: COR NA(FOR HYPERGLY) 142 mmol/L (136-145); SODIUM 141 mmol/L (136-145)
[2017-11-19] MEDS ORDERED: NS 1/2 + KCL 20 MEQ/L 1,000 ML IV ONE (08:42)
[2017-11-19] MEDS: MILK OF MAGNESIA PO SCH ×2 (09:01→20:49)
[2017-11-19] MEDS: COLACE CAP 100 MG PO SCH (09:02)
[2017-11-19] MEDS: ZESTRIL TAB 20 MG PO SCH ×2 (09:02→20:49)
[2017-11-19] MEDS ORDERED: CITROMA PO ONE (10:30)
[2017-11-19] MEDS: HumuLIN R SUBCUT PRN ×2 (11:59→20:46)
[2017-11-19] MEDS ORDERED: ZESTRIL TAB 20 MG ONE (20:36)
[2017-11-19] MEDS: LEVEMIR SC SCH (20:45)
[2017-11-19] MEDS: SNACK - Diabetic Appropriate PO SCH (20:47)
[2017-11-19] MEDS: KLONOPIN TAB 1 MG PO SCH (20:48)
[2017-11-19] MEDS: MIRALAX POWDER (1 DOSE 17 G) PO SCH (20:49)
[2017-11-19] MEDS: NORVASC TAB 5 MG PO SCH (20:50)
[2017-11-20] MEDS ORDERED: NS 1/2 + KCL 20 MEQ/L 1,000 ML IV ONE (02:30)
[2017-11-20] MEDS: DEMEROL INJ IVP PRN ×2 (02:47→06:51)
[2017-11-20] MEDS: PHENERGAN INJ 25 MG IV PRN (02:47)
[2017-11-20] MEDS: SODIUM BICARBONATE 8.4% IV SCH ×4 (02:48→05:26)
[2017-11-20] MEDS: NS IV SCH ×4 (02:48→05:26)
[2017-11-20] MEDS: KCL IV SCH ×4 (02:48→05:26)
[2017-11-20 05:07] LABS: BASOPHILS % (AUTO) 0.5 % (0.2-1.0); EOSINOPHILS # (AUTO) 0.3 x10^3/uL (0.0-0.2); EOSINOPHILS % (AUTO) 3.2 % (0.9-2.9); HEMATOCRIT 32.1 % (42.0-54.0); HEMOGLOBIN 10.9 g/dL (13.5-18.0); LYMPHOCYTES # (AUTO) 4.3 X10^3/uL (1.3-2.9); LYMPHOCYTES % (AUTO) 46.4 % (21.0-51.0); MEAN CORPUSCULAR VOLUME 88.2 fL (80.0-100.0); MEAN PLATELET VOLUME 7.9 fL (7.4-11.0); MONOCYTES % (AUTO) 10.8 % (0.0-13.0); NEUTROPHILS # (AUTO) 3.6 x10^3/uL (2.2-4.8); NEUTROPHILS % (AUTO) 39.1 % (42.0-75.0); PLATELET COUNT 274 X10^3/uL (150.0-450.0); RED BLOOD COUNT 3.64 X10^6/uL (4.7-6.0); RED CELL DISTRIBUTION WIDTH 14.9 % (11.6-16.5); WHITE BLOOD COUNT 9.3 X10^3/uL (3.6-10.0)
[2017-11-20 05:17] LABS: SERUM ACETONE NEGATIVE (NEGATIVE)
[2017-11-20 05:22] LABS: ALANINE AMINOTRANSFERASE 18 Units/L (12-78); ALBUMIN 2.7 g/dL (3.4-5.0); ALKALINE PHOSPHATASE 69 Units/L (46-116); ASPARTATE AMINO TRANSFERASE 15 Units/L (15-37); BLOOD UREA NITROGEN 2 mg/dL (7-18); CALCIUM 8.5 mg/dL (8.5-10.1); CARBON DIOXIDE 33.1 mmol/L (21-32); CHLORIDE 107 mmol/L (98-107); COR CA(FOR HYPOALB) 9.5 mg/dL (8.5-10.1); CREATININE 0.53 mg/dL (0.70-1.30); SODIUM 144 mmol/L (136-145); TOTAL PROTEIN 5.3 g/dL (6.4-8.2); eGFR NON BLACK RACES > 60 (>60)
[2017-11-20] MEDS: XANAX PO SCH (05:26)
[2017-11-20] MEDS ORDERED: ZESTRIL TAB 20 MG ONE (09:00)
[2017-11-20] MEDS: COLACE CAP 100 MG PO SCH (09:01)
[2017-11-20] MEDS: ZESTRIL TAB 20 MG PO SCH (09:01)
[2017-11-20] MEDS: MILK OF MAGNESIA PO SCH (09:02)
[2017-11-20 09:50] VITALS: BP 130/79
--- NOTE | 2017-11-23 08:59 | DR.GENAD ---
HPI PCP Primary Care Physician: jon Complaint/Symptoms Chief Complaint:: nausea/vomitting Source History Provided: Patient and EMS Timing Onset of Chief Complaint: 11/10/17 PMH PMH Past Medical History: Yes Past Medical History: Anxiety, Depression, Diabetes, GERD and Hypertension Past Surgical History: Yes Surgical History: Other Family History History of Family Medical Conditions: Yes Family Medical History: Diabetes Mellitus, Sudden Cardiac and Hypertension Family Medical History Comment: Patient presented with dad who was concerned about patient behavior and he wanted him evaluated Social History Does patient currently use any type of tobacco product: Yes Have you used tobacco products in the last 12 months: Yes Type of Tobacco Use: Cigarettes Does any household member use tobacco: Yes Do you use any recreational Drugs:: No (He admits to previous use of methamphetamine and dad is concerned about use now) Lives With: Dad, Mom and Family Lives Where: Home infectious screening In the last 2 months have you had wt loss of >10#?: NO Have you had fever, night sweats or hemotysis?: No Have you traveled outside the country in the last 6 months?: No Isolation: Standard ROS Review of Systems Constitutional: No Symptoms Reported Eyes: No Symptoms Reported ENTM: No Symptoms Reported Respiratoy: No Symptoms Reported Cardiovascular: No Symptoms Reported Gastrointestinal/Abdominal: Vomiting (Patient admits to vomiting since he last saw his physician, for the past 3-4 days. He denies diarrhea or fever. He admits to a history of diabetes) Genitourinary: No Symptoms Reported Musculoskeletal: No Symptoms Reported Psychiatric: No Symptoms Reported All Other Systems: Reviewed and Negative PE Vital Signs Vitals: Temperature 97.8 F Pulse Rate [Left Brachial] 102 Pulse Rate 128 Respiratory Rate 18 Blood Pressure [Left Arm] 130/79 Blood Pressure [Right Arm] 165/93 Blood Pressure 113/77 O2 Sat by Pulse Oximetry 97 General Limitations: Physical Limitation (weakness ) General Appearance: Alert Head Head Exam: Normal Inspection Eyes Eye exam: Normal Appearance, PERRL and EOMI ENT ENT Exam: Normal Oropharynx (dry) and Mucous Membranes Dry External Ear Exam: Normal External Inspection TM/Canal Exam: Bilateral: Normal Nose Exam: Normal Nose Exam Mouth Exam: Normal Inspection Throat Exam: Normal Inspection Neck Neck Exam: Normal Inspection Chest Chest Inspection: Normal Inspection Respiratory Respiratory Exam: Normal Lung Sounds Bilat Respiratory Exam: Bilateral: Clear to Auscultation Cardiovascular Cardiovascular Exam: Tachycardia Abdominal Exam Abdominal Exam: Tenderness and Hyperactive Bowel Sounds; negative Trauma Abdominal Tenderness: Diffuse Extremities Extremities Exam: Normal Inspection Back Back Exam: Normal Inspection; negative (R) CVA Tenderness and Paraspinal Tenderness Neurologic Neurological Exam: Alert, Oriented X3, CN II-XII Intact and Motor Sensory Deficit Psychiatric Psychiatric Exam: Anxious and Flat Affect Skin Skin Exam: Warm and Dry; negative Diaphoresis COURSE Treatment Treatment: Patient started on normal saline solution and oxygen, labs obtained, results of labs discussed with patient with dad in attendance. Reevaluation 1st: Improved ROR Labs Reviewed Laboratory Results Reviewed?: Yes Result Diagrams: 11/20/17 04:50 11/20/17 04:56 Laboratory: WBC 9.3 X10^3/uL (3.6-10.0) 11/20/17 04:50 RBC 3.64 X10^6/uL (4.7-6.0) L 11/20/17 04:50 Hgb 10.9 g/dL (13.5-18.0) L 11/20/17 04:50 Hct 32.1 % (42.0-54.0) L 11/20/17 04:50 MCV 88.2 fL (80.0-100.0) 11/20/17 04:50 MCH 30.0 pg (27.0-34.0) 11/20/17 04:50 MCHC 34.0 g/dL (33.0-35.0) 11/20/17 04:50 RDW 14.9 % (11.6-16.5) 11/20/17 04:50 Plt Count 274 X10^3/uL (150.0-450.0) 11/20/17 04:50 MPV 7.9 fL (7.4-11.0) 11/20/17 04:50 Neut % (Auto) 39.1 % (42.0-75.0) L 11/20/17 04:50 Lymph % (Auto) 46.4 % (21.0-51.0) 11/20/17 04:50 Mayes % (Auto) 10.8 % (0.0-13.0) 11/20/17 04:50 Eos % (Auto) 3.2 % (0.9-2.9) H 11/20/17 04:50 Baso % (Auto) 0.5 % (0.2-1.0) 11/20/17 04:50 Neut # (Auto) 3.6 x10^3/uL (2.2-4.8) 11/20/17 04:50 Lymph # (Auto) 4.3 X10^3/uL (1.3-2.9) H 11/20/17 04:50 Mayes # (Auto) 1.0 x10^3/uL (0.3-0.8) H 11/20/17 04:50 Eos # (Auto) 0.3 x10^3/uL (0.0-0.2) H 11/20/17 04:50 Baso # (Auto) 0.0 X10^3/uL (0.0-0.1) 11/20/17 04:50 Absolute Nucleated RBC 0.0 /100WBC 11/20/17 04:50 Sample Site Right radial 11/19/17 05:43 ABG pH 7.530 (7.35-7.45) H 11/19/17 05:43 ABG pCO2 44.0 mmHg (35.0-45.0) 11/19/17 05:43 ABG pO2 74.0 mmHg (80.0-100.0) L 11/19/17 05:43 ABG HCO3 36.8 mmol/L (22-26) H* 11/19/17 05:43 ABG O2 Saturation 96.0 % (90-100) 11/19/17 05:43 ABG Base Excess 12.6 mmol/L (-2.0-2.0) H 11/19/17 05:43 Geoff Test Pos 11/19/17 05:43 A-a Gradient 21.0 mmHg 11/19/17 05:43 FiO2 21.000 11/19/17 05:43 Blood Gas Comments Marva well jts 11/19/17 05:43 Sodium 144 mmol/L (136-145) 11/20/17 04:56 Corrected Sodium TNP 11/20/17 04:56 Potassium 3.5 mmol/L (3.5-5.1) 11/20/17 04:56 Chloride 107 mmol/L (98-107) 11/20/17 04:56 Carbon Dioxide 33.1 mmol/L (21-32) H 11/20/17 04:56 BUN 2 mg/dL (7-18) L 11/20/17 04:56 Creatinine 0.53 mg/dL (0.70-1.30) L 11/20/17 04:56 Est GFR (MDRD) Af Amer > 60 (>60) 11/20/17 04:56 Est GFR (MDRD) Non-Af > 60 (>60) 11/20/17 04:56 Glucose 79 mg/dL (65-99) 11/20/17 04:56 POC Glucose (mg/dL) 88 mg/dL (65-99) 11/20/17 05:21 Calcium 8.5 mg/dL (8.5-10.1) 11/20/17 04:56 Corrected Calcium 9.5 mg/dL (8.5-10.1) 11/20/17 04:56 Magnesium 1.9 mg/dL (1.7-2.9) 11/19/17 05:41 Total Bilirubin 0.10 mg/dL (0.2-1.0) L 11/20/17 04:56 AST 15 Units/L (15-37) 11/20/17 04:56 ALT 18 Units/L (12-78) 11/20/17 04:56 Alkaline Phosphatase 69 Units/L (46-116) 11/20/17 04:56 Creatine Kinase 22 Units/L (39-308) L 11/16/17 17:53 CK-MB (CK-2) < 1.0 ng/mL (0-4.0) 11/16/17 17:53 CK/CKMB % Calc 4.6 % (<4) 11/16/17 17:53 Troponin I < 0.02 ng/mL (0-1.5) 11/16/17 17:53 Total Protein 5.3 g/dL (6.4-8.2) L 11/20/17 04:56 Albumin 2.7 g/dL (3.4-5.0) L 11/20/17 04:56 Globulin 2.6 g/dL (2.5-4.5) 11/20/17 04:56 Albumin/Globulin Ratio 1.0 Ratio (1.1-2.1) L 11/20/17 04:56 Lipase 35 Units/L (73-393) L 11/10/17 05:25 Specimen Type Random urine 11/10/17 15:58 Urine Color Yellow (YELLOW) 11/10/17 15:58 Urine Appearance Clear (CLEAR) 11/10/17 15:58 Urine pH 5.0 (5.0 - 8.0) 11/10/17 15:58 Ur Specific [place] 1.020 (1.000-1.030) 11/10/17 15:58 Urine Protein Negative (NEGATIVE) 11/10/17 15:58 Urine Glucose (UA) 4+ (NEGATIVE) 11/10/17 15:58 Urine Ketones 4+ (NEGATIVE) 11/10/17 15:58 Urine Occult Blood 1+ (NEGATIVE) 11/10/17 15:58 Urine Nitrite Negative (NEGATIVE) 11/10/17 15:58 Urine Bilirubin Negative (NEGATIVE) 11/10/17 15:58 Urine Urobilinogen Normal (NORMAL) 11/10/17 15:58 Ur Leukocyte Esterase Negative (NEGATIVE) 11/10/17 15:58 Urine RBC 0-2 /HPF (NONE SEEN) 11/10/17 15:58 Urine WBC 0-2 /HPF (NONE SEEN) 11/10/17 15:58 Ur Squamous Epith Cells Rare /HPF (NEGATIVE) 11/10/17 15:58 Urine Bacteria Trace /HPF (NEGATIVE) 11/10/17 15:58 Urine Mucus Rare /HPF (NEGATIVE) 11/10/17 15:58 Ur Culture Indicated? No/not indicated 11/10/17 15:58 Urine Opiates Screen Negative (NEG=<300) 11/10/17 15:58 Urine Methadone Screen Positive (NEG=<300) 11/10/17 15:58 Ur Barbiturates Screen Negative (NEG=<200) 11/10/17 15:58 Ur Phencyclidine Scrn Negative (NEG=<25) 11/10/17 15:58 Ur Amphetamines Screen Positive (NEG=<1000) 11/10/17 15:58 U Benzodiazepines Scrn Positive (NEG=<200) 11/10/17 15:58 Urine Cocaine Screen Negative (NEG=<300) 11/10/17 15:58 U Marijuana (THC) Screen Negative (NEG=<50) 11/10/17 15:58 Acetone, Semi-Quant Negative (NEGATIVE) 11/20/17 04:56 Diagnosis Discharge Problem: Diabetic ketoacidosis Instructions Instructions: Steps to Quit Smoking, [id number] Type 2 Diabetes Mellitus, Diagnosis, Adult Smoking Tobacco Information Diabetic Ketoacidosis Hypertension, [id number] Forms: Patient Portal
--- NOTE | 2017-11-23 23:09 | DR.CARTERD ---
- Discharge Summary for: Discharge Summary for Date of:: 11/20/17 - Admission Date Date of Admission: 11/10/17 - Admission Diagnoses Admission Diagnosis: (1) DKA (2) Abdominal pain (3) Hyperglycemia with Type I diabetes mellitus (4) Nausea & vomiting (5) Gastroparesis (6) Constipation (7) Essential hypertension, benign - Discharge Date Discharge Date: 11/20/17 - Discharge Diagnoses Discharge Diagnosis: (1) DKA (2) Abdominal pain (3) Hyperglycemia with Type I diabetes mellitus (4) Nausea & vomiting (5) Gastroparesis (6) Constipation (7) Essential hypertension, benign - Hospital Course Hospital Course: MR. MARRERO PRESENTED TO THE ER WITH COMPLAINTS OF NAUSEA, VOMITING, AND ABDOMINAL PAIN. HE REPORTED THAT SYMPTOMS STARTED SEVERAL DAYS PRIOR AND HAD PROGRESSIVELY WORSENED. PATIENT HAD A HISTORY OF DIABETES AND DIABETIC GASTROPARESIS, FOR WHICH HE WAS GENERALLY NON-COMPLIANT. HE RATED ABDOMINAL PAIN 7/10. ON ARRIVAL, VITALS WERE 97.3-128-16-97%-113/77. LABS WERE OBTAINED. ABNORMAL LAB VALUES INCLUDED THE FOLLOWING: WBC 18.5, RBC 4.67, HCT 41.7, SODIUM 133, CHLORIDE 93, CARBON DIOXIDE 17.7, BUN 22, GLUCOSE 503, AST 13, LIPASE 35. ABG REVEALED PH 7.270, PC02 33.0, O2 95, 02 SATURATION 96.0, HC03 15.2, BASE EXCESS -10.7. TOXICOLOGY REPORTED POSITIVE FOR METHADONE, AMPHETAMINES, AND BENZODIAZEPINES. SERUM ACETONES SMALL. AN ABDOMEN XRAY WAS OBTAINED AND REVEALED FINDINGS CONSISTENT WITH CONSTIPATION AND POSSIBLE FECAL IMPACTION. NEGATIVE OTHERWISE. EKG REVEALED SINUS TACHYCARDIA WITH HR 134. HE WAS GIVEN THREE NORMAL SALINE BOLUSES IN THE ER, THEN STARTED ON NORMAL SALINE WITH 20MEQ KCL WITH 1 AMP SODIUM BICARB IN EACH LITER AT 125ML/HR. HE WAS ALSO STARTED ON AN INSULIN DRIP. PATIENT WAS ADMITTED TO THE INTENSIVE CARE UNIT FOR FURTHER EVALUATION AND TREATMENT OF HYPERGLYCEMIA. PATIENT CONTINUED WITH ABDOMINAL PAIN, NAUSEA, WEAKNESS. WE STARTED THE POTASSIUM PROTOCOL DUE TO A POTASSIUM OF 3.2. WE CONTINUED INSULIN DRIP AND IV FLUIDS. WE INCREASED LISINOPRIL TO 10MG DAILY AND STARTED AMLODIPINE 5MG PO HS FOR INCREASED BP OF 158/113. DAY FIVE, PATIENT CONTINUED TO COMPLAIN OF ABDOMINAL PAIN AND NAUSEA. APPETITE WAS POOR. WE CONTINUED WITH INSULIN DRIP AND IV FLUIDS. ON DAY SIX, HE CONTINUED WITH INCREASED NAUSEA AND VOMITING. URINE ACETONES MODERATE. WE BOLUSED TWO LITERS OF NORMAL SALINE WITH 2 AMPS OF SODIUM BICARB IN EACH BAG. WE INCREASED MAINTENANCE FLUIDS TO 150MLS/HR. WE INCREASED LISINOPRIL TO 20MG PO BID FOR BP OF 172/110. INSULIN DRIP WAS WEANED. ON DAY SEVEN, WE STARTED PEPCID IV DUE TO CONTINUED ABDOMINAL PAIN. ON DAY EIGHT, PATIENT NOTED WITH DECREASED URINE OUTPUT AND TACHYCARDIA AROUND 100BPM. WE GAVE A BOLUS OF NORMAL SALINE 1000MLS. WE CONTINUED TO MONITOR. DAY NINE, PATIENT CONTINUED WITH ABDOMINAL PAIN. DEMEROL 25MG IV WAS ORDERED. PATIENT WAS ALSO NOTED WITH CONSTIPATION. COLACE, MILK OF MAGNESIA, AND DULCOLAX TAB ORDERED. BLOOD GLUCOSE WAS 402. PATIENT RECEIVED A ONE TIME DOSE OF NOVOLOG 70/30 40 UNITS SC. PATIENT WAS STARTED ON LEVEMIR 20MG SC HS. DAY TEN, GLUCOSE DROPPED TO 34 AND PATIENT WAS GIVEN A BOLUS OF D50 25GM IV. BLOOD GLUCOSE INCREASED TO 175. PATIENT CONTINUED WITH CONSTIPATION AND HAD NOT HAD A BOWEL MOVEMENT SINCE ADMISSION. MAGNESIUM CITRATE 296MLS WAS GIVEN AND PATIENT HAD A LARGE BOWEL MOVEMENT. ON DAY ELEVEN, PATIENT WAS FEELING BETTER AND GLUCOSE WAS 79. PATIENT DENIED ABDOMINAL PAIN. NO DISTRESS WAS NOTED. WE PLANNED FOR DISCHARGE. INSTRUCTIONS FOR MEDICATIONS AND FOLLOW UP WERE DISCUSSED WITH PATIENT AND FAMILY, BOTH VOICED UNDERSTANDING. PATIENT DISCHARGED HOME IN STABLE CONDITION WITH FAMILY. - Discharge Medications Discharge Medications: Home Medication List insulin detemir U-100 [Levemir U-100 Insulin] 25 units SUB-Q BID 11/10/17 [ History] lisinopril 1 tab PO HS 11/10/17 [History] Prescriptions: Home medications gabapentin 1 cap PO TID 05/02/15 alprazolam [Xanax] 2 mg PO TID PRN 02/15/16 methadone 20 mg PO Q6H PRN 02/15/16 insulin lispro [Humalog U-100 Insulin] 3 units SUBCUT .WITHMEALS 02/16/16 famotidine 20 mg PO BID #60 tab 02/21/16 clonazepam [Klonopin] 2 mg PO HS 10/24/17 dextroamphetamine-amphetamine [Adderall] 20 mg PO BID 10/24/17 docusate sodium 100 mg PO DAILY #30 cap 10/28/17 polyethylene glycol 3350 [Miralax] 17 g PO DAILY #1 bottle 10/28/17 insulin detemir U-100 [Levemir U-100 Insulin] 25 units SUB-Q BID 11/10/17 lisinopril 1 tab PO HS 11/10/17 - Discharge Disposition Discharge Disposition: PATIENT IS TO FOLLOW UP IN OUR OFFICE IN ONE WEEK.
--- NOTE | 2018-01-11 19:56 | PCM.PROG ---
Progress Note - Progress Note for Day of Date of Exam: 11/16/17 - Subjective Subjective: WAS ADMITTED FOR DEHYDRATION, HYPERGLYCEMIA, GASTROPARESIS, ABDOMINAL PAIN, AND CONSTIPATION. TODAY, HE IS ALERT AND ORIENTED, LYING IN BED ON MORNING ROUNDS. HE IS NOTED WITH COMPLAINTS OF INCREASED NAUSEA AND VOMITING THIS MORNING. HIS HEART RATE HAS REMAINED ELEVATED THROUGHOUT THE NIGHT. HE REPORTS CHEST PAIN AT TIMES. ON EXAMINATION, HEART RATE IS RAPID. SURGICAL SCRUB TECHNOLOGIST REVEALS HEART RATE IN THE 120S-130S. BILATERAL LUNGS ARE NOTED WITH DIMINISHED LUNG SOUNDS THROUGHOUT. ABDOMEN IS ROUND, SOFT, AND NOTED WITH MILD, DIFFUSE TENDERNESS TO PALPATION. DECREASED BOWEL SOUNDS NOTED THROUGHOUT. HIS VITALS THIS MORNING ARE 100.4-124-27-96%-166/98. LABS WERE OBTAINED. ABNORMAL LAB VALUES INCLUDE THE FOLLOWING: WBC 11.7, RBC 3.99, HGB 11.9, HCT 35.3, SODOIUM 135, CHLORIDE 97, CARBON DIOXIDE 15.9, GLUCOSE 294, AST 14, TOTAL PROTEIN 6.3, ALBUMIN 3.1. ABG REVEALS PH 7.400, PC02 22.0, P02 91.0, HC03 13.6 , 02 SATURATION 97.0, BASE EXCESS -9.3. SERUM ACETONES SMALL. HE CONTINUES ON IV FLUIDS AND AN INSULIN DRIP THIS MORNING. TODAY, WE WILL OBTAIN A CHEST CT WITH CONTRAST WELL SERIAL CARDIAC ENZYZMES AND EKGS. OTHERWISE, WE WILL CONTINUE WITH CURRENT PLAN OF CARE. WE PLAN TO FOLLOW UP WITH AM LABS AND CONTINUE TO MONITOR PATIENT. - Past Medical Family Social History Past Med/Fam/Surg Hx: No changes since H&P Allergies: Allergies No Known Drug Allergies Allergy (Verified 10/07/17 10:20) - Review of Systems ROS: No change since H&P - Vital Signs and I&O's Vital Signs: Temperature 97.8 F Pulse Rate [Left Brachial] 102 Pulse Rate 128 Respiratory Rate 18 Blood Pressure [Left Arm] 130/79 Blood Pressure [Right Arm] 165/93 Blood Pressure 113/77 O2 Sat by Pulse Oximetry 97 - Physical Exam Oriented: Normal Eyes: Normal Ear: Normal Nose: Normal Throat: Normal Respiratory: Generalized, Diminished Cardiovascular: Tachycardia. negative: S3, S4, Murmur : Normal Auscultation: Bowel Sounds: Decreased Tenderness: Diffuse, Mild. negative: Rebound, Guarding, Rigidity Skin: Normal Musculoskeletal: Normal Psychiatric: Normal Mood Description: Calm Affect: Normal Speech Pattern: Clear, Appropriate - Laboratory and Diagnostics Result Diagrams: 11/20/17 04:50 11/20/17 04:56 Labs: Laboratory WBC 9.3 X10^3/uL (3.6-10.0) 11/20/17 04:50 RBC 3.64 X10^6/uL (4.7-6.0) L 11/20/17 04:50 Hgb 10.9 g/dL (13.5-18.0) L 11/20/17 04:50 Hct 32.1 % (42.0-54.0) L 11/20/17 04:50 MCV 88.2 fL (80.0-100.0) 11/20/17 04:50 MCH 30.0 pg (27.0-34.0) 11/20/17 04:50 MCHC 34.0 g/dL (33.0-35.0) 11/20/17 04:50 RDW 14.9 % (11.6-16.5) 11/20/17 04:50 Plt Count 274 X10^3/uL (150.0-450.0) 11/20/17 04:50 MPV 7.9 fL (7.4-11.0) 11/20/17 04:50 Neut % (Auto) 39.1 % (42.0-75.0) L 11/20/17 04:50 Lymph % (Auto) 46.4 % (21.0-51.0) 11/20/17 04:50 [place] % (Auto) 10.8 % (0.0-13.0) 11/20/17 04:50 Eos % (Auto) 3.2 % (0.9-2.9) H 11/20/17 04:50 Baso % (Auto) 0.5 % (0.2-1.0) 11/20/17 04:50 Neut # (Auto) 3.6 x10^3/uL (2.2-4.8) 11/20/17 04:50 Lymph # (Auto) 4.3 X10^3/uL (1.3-2.9) H 11/20/17 04:50 [place] # (Auto) 1.0 x10^3/uL (0.3-0.8) H 11/20/17 04:50 Eos # (Auto) 0.3 x10^3/uL (0.0-0.2) H 11/20/17 04:50 Baso # (Auto) 0.0 X10^3/uL (0.0-0.1) 11/20/17 04:50 Absolute Nucleated RBC 0.0 /100WBC 11/20/17 04:50 Sample Site Right radial 11/19/17 05:43 ABG pH 7.530 (7.35-7.45) H 11/19/17 05:43 ABG pCO2 44.0 mmHg (35.0-45.0) 11/19/17 05:43 ABG pO2 74.0 mmHg (80.0-100.0) L 11/19/17 05:43 ABG HCO3 36.8 mmol/L (22-26) H* 11/19/17 05:43 ABG O2 Saturation 96.0 % (90-100) 11/19/17 05:43 ABG Base Excess 12.6 mmol/L (-2.0-2.0) H 11/19/17 05:43 Geoff Test Pos 11/19/17 05:43 A-a Gradient 21.0 mmHg 11/19/17 05:43 FiO2 21.000 11/19/17 05:43 Blood Gas Comments Amrva well jts 11/19/17 05:43 Sodium 144 mmol/L (136-145) 11/20/17 04:56 Corrected Sodium TNP 11/20/17 04:56 Potassium 3.5 mmol/L (3.5-5.1) 11/20/17 04:56 Chloride 107 mmol/L (98-107) 11/20/17 04:56 Carbon Dioxide 33.1 mmol/L (21-32) H 11/20/17 04:56 BUN 2 mg/dL (7-18) L 11/20/17 04:56 Creatinine 0.53 mg/dL (0.70-1.30) L 11/20/17 04:56 Est GFR (MDRD) Af Amer > 60 (>60) 11/20/17 04:56 Est GFR (MDRD) Non-Af > 60 (>60) 11/20/17 04:56 Glucose 79 mg/dL (65-99) 11/20/17 04:56 POC Glucose (mg/dL) 88 mg/dL (65-99) 11/20/17 05:21 Calcium 8.5 mg/dL (8.5-10.1) 11/20/17 04:56 Corrected Calcium 9.5 mg/dL (8.5-10.1) 11/20/17 04:56 Magnesium 1.9 mg/dL (1.7-2.9) 11/19/17 05:41 Total Bilirubin 0.10 mg/dL (0.2-1.0) L 11/20/17 04:56 AST 15 Units/L (15-37) 11/20/17 04:56 ALT 18 Units/L (12-78) 11/20/17 04:56 Alkaline Phosphatase 69 Units/L (46-116) 11/20/17 04:56 Creatine Kinase 22 Units/L (39-308) L 11/16/17 17:53 CK-MB (CK-2) < 1.0 ng/mL (0-4.0) 11/16/17 17:53 CK/CKMB % Calc 4.6 % (<4) 11/16/17 17:53 Troponin I < 0.02 ng/mL (0-1.5) 11/16/17 17:53 Total Protein 5.3 g/dL (6.4-8.2) L 11/20/17 04:56 Albumin 2.7 g/dL (3.4-5.0) L 11/20/17 04:56 Globulin 2.6 g/dL (2.5-4.5) 11/20/17 04:56 Albumin/Globulin Ratio 1.0 Ratio (1.1-2.1) L 11/20/17 04:56 Lipase 35 Units/L (73-393) L 11/10/17 05:25 Specimen Type Random urine 11/10/17 15:58 Urine Color Yellow (YELLOW) 11/10/17 15:58 Urine Appearance Clear (CLEAR) 11/10/17 15:58 Urine pH 5.0 (5.0 - 8.0) 11/10/17 15:58 Ur Specific [place] 1.020 (1.000-1.030) 11/10/17 15:58 Urine Protein Negative (NEGATIVE) 11/10/17 15:58 Urine Glucose (UA) 4+ (NEGATIVE) 11/10/17 15:58 Urine Ketones 4+ (NEGATIVE) 11/10/17 15:58 Urine Occult Blood 1+ (NEGATIVE) 11/10/17 15:58 Urine Nitrite Negative (NEGATIVE) 11/10/17 15:58 Urine Bilirubin Negative (NEGATIVE) 11/10/17 15:58 Urine Urobilinogen Normal (NORMAL) 11/10/17 15:58 Ur Leukocyte Esterase Negative (NEGATIVE) 11/10/17 15:58 Urine RBC 0-2 /HPF (NONE SEEN) 11/10/17 15:58 Urine WBC 0-2 /HPF (NONE SEEN) 11/10/17 15:58 Ur Squamous Epith Cells Rare /HPF (NEGATIVE) 11/10/17 15:58 Urine Bacteria Trace /HPF (NEGATIVE) 11/10/17 15:58 Urine Mucus Rare /HPF (NEGATIVE) 11/10/17 15:58 Ur Culture Indicated? No/not indicated 11/10/17 15:58 Urine Opiates Screen Negative (NEG=<300) 11/10/17 15:58 Urine Methadone Screen Positive (NEG=<300) 11/10/17 15:58 Ur Barbiturates Screen Negative (NEG=<200) 11/10/17 15:58 Ur Phencyclidine Scrn Negative (NEG=<25) 11/10/17 15:58 Ur Amphetamines Screen Positive (NEG=<1000) 11/10/17 15:58 U Benzodiazepines Scrn Positive (NEG=<200) 11/10/17 15:58 Urine Cocaine Screen Negative (NEG=<300) 11/10/17 15:58 U Marijuana (THC) Screen Negative (NEG=<50) 11/10/17 15:58 Acetone, Semi-Quant Negative (NEGATIVE) 11/20/17 04:56 - Plan (1) Type I diabetes mellitus Status: Chronic Qualifiers: Diabetes mellitus complication status: with hyperglycemia Qualified Code(s) : E10.65 - Type 1 diabetes mellitus with hyperglycemia Plan: BOLUS 2 LITERS NS WITH 2 AMPS BICARB EACH THEN NS WITH 20MEQ KCL AND 2 AMPS BICARB TO EACH LITER AT 150ML/HR, HUMULIN R INSULIN DRIP, MONITOR OTBS (2) Chest pain Status: Acute Qualifiers: Chest pain type: unspecified Qualified Code(s): R07.9 - Chest pain, unspecified Plan: OBTAIN CHEST CT, OBTAIN SERIAL CARDIAC ENZYMES AND EKG, CONTINUE TO MONITOR. (3) Essential hypertension, benign Status: Chronic Plan: CONTINUE HOME MEDICATIONS (4) Constipation Status: Acute Qualifiers: Constipation type: slow transit constipation Qualified Code(s): K59.01 - Slow transit constipation (5) Hypertension Status: Acute Qualifiers: Hypertension type: essential hypertension Qualified Code(s): I10 - Essential (primary) hypertension Plan: LISINOPRIL 20MG PO BID, AMLODIPINE 5MG PO HS, CONTINUE TO MONITOR
--- NOTE | 2018-01-11 20:01 | PCM.PROG ---
Progress Note - Progress Note for Day of Date of Exam: 11/17/17 - Subjective Subjective: WAS ADMITTED FOR DEHYDRATION, HYPERGLYCEMIA, GASTROPARESIS, ABDOMINAL PAIN, AND CONSTIPATION. TODAY, HE IS ALERT AND ORIENTED, LYING IN BED ON MORNING ROUNDS. HE IS NOTED WITH COMPLAINTS OF NAUSEA AND VOMITING THIS MORNING, SLIGHTLY IMPROVED SINCE YESTERDAY. HIS HEART RATE HAS REMAINED STABLE THROUGHOUT THE NIGHT. HE DENIES CHEST PAIN THIS MORNING. ON EXAMINATION, HEART IS REGULAR IN RATE AND RHYTHM. BILATERAL LUNGS ARE NOTED WITH DIMINISHED LUNG SOUNDS THROUGHOUT. ABDOMEN IS ROUND, SOFT, AND NOTED WITH MILD, DIFFUSE TENDERNESS TO PALPATION. DECREASED BOWEL SOUNDS NOTED THROUGHOUT. HIS VITALS THIS MORNING ARE 97.2-99-12-98%-102/69. LABS WERE OBTAINED. ABNORMAL LAB VALUES INCLUDE THE FOLLOWING: WBC 113.2, RBC 3.99, HGB 11.9, HCT 35.1, G.LUCOSE 155, AST 10, TOTAL PROTEIN 5.8, ALBUMIN 2.8. ABG NORMAL. CARDIAC ENZYMES HAVE BEEN WITHIN NORMAL LIMITS. CHEST CT WITH CONTRAST OBTAINED AND REVEALED: No acute cardiopulmonary pathology. Mild coronary artery calcifications are noted, suggestive of coronary artery disease. TODAY, WE WILL INCREASE IV FLUIDS TO 100ML/HR. OTHERWISE, WE WILL CONTINUE WITH CURRENT PLAN OF CARE. WE PLAN TO FOLLOW UP WITH AM LABS AND CONTINUE TO MONITOR PATIENT. - Past Medical Family Social History Past Med/Fam/Surg Hx: No changes since H&P Allergies: Allergies No Known Drug Allergies Allergy (Verified 10/07/17 10:20) - Review of Systems ROS: No change since H&P - Vital Signs and I&O's Vital Signs: Temperature 97.8 F Pulse Rate [Left Brachial] 102 Pulse Rate 128 Respiratory Rate 18 Blood Pressure [Left Arm] 130/79 Blood Pressure [Right Arm] 165/93 Blood Pressure 113/77 O2 Sat by Pulse Oximetry 97 - Physical Exam Oriented: Normal Eyes: Normal Ear: Normal Nose: Normal Throat: Normal Respiratory: Generalized, Diminished Cardiovascular: Tachycardia. negative: S3, S4, Murmur : Normal Auscultation: Bowel Sounds: Decreased Tenderness: Diffuse, Mild. negative: Rebound, Guarding, Rigidity Skin: Normal Musculoskeletal: Normal Psychiatric: Normal Mood Description: Calm Affect: Normal Speech Pattern: Clear, Appropriate - Laboratory and Diagnostics Result Diagrams: 11/20/17 04:50 11/20/17 04:56 Labs: Laboratory WBC 9.3 X10^3/uL (3.6-10.0) 11/20/17 04:50 RBC 3.64 X10^6/uL (4.7-6.0) L 11/20/17 04:50 Hgb 10.9 g/dL (13.5-18.0) L 11/20/17 04:50 Hct 32.1 % (42.0-54.0) L 11/20/17 04:50 MCV 88.2 fL (80.0-100.0) 11/20/17 04:50 MCH 30.0 pg (27.0-34.0) 11/20/17 04:50 MCHC 34.0 g/dL (33.0-35.0) 11/20/17 04:50 RDW 14.9 % (11.6-16.5) 11/20/17 04:50 Plt Count 274 X10^3/uL (150.0-450.0) 11/20/17 04:50 MPV 7.9 fL (7.4-11.0) 11/20/17 04:50 Neut % (Auto) 39.1 % (42.0-75.0) L 11/20/17 04:50 Lymph % (Auto) 46.4 % (21.0-51.0) 11/20/17 04:50 [place] % (Auto) 10.8 % (0.0-13.0) 11/20/17 04:50 Eos % (Auto) 3.2 % (0.9-2.9) H 11/20/17 04:50 Baso % (Auto) 0.5 % (0.2-1.0) 11/20/17 04:50 Neut # (Auto) 3.6 x10^3/uL (2.2-4.8) 11/20/17 04:50 Lymph # (Auto) 4.3 X10^3/uL (1.3-2.9) H 11/20/17 04:50 [place] # (Auto) 1.0 x10^3/uL (0.3-0.8) H 11/20/17 04:50 Eos # (Auto) 0.3 x10^3/uL (0.0-0.2) H 11/20/17 04:50 Baso # (Auto) 0.0 X10^3/uL (0.0-0.1) 11/20/17 04:50 Absolute Nucleated RBC 0.0 /100WBC 11/20/17 04:50 Sample Site Right radial 11/19/17 05:43 ABG pH 7.530 (7.35-7.45) H 11/19/17 05:43 ABG pCO2 44.0 mmHg (35.0-45.0) 11/19/17 05:43 ABG pO2 74.0 mmHg (80.0-100.0) L 11/19/17 05:43 ABG HCO3 36.8 mmol/L (22-26) H* 11/19/17 05:43 ABG O2 Saturation 96.0 % (90-100) 11/19/17 05:43 ABG Base Excess 12.6 mmol/L (-2.0-2.0) H 11/19/17 05:43 Geoff Test Pos 11/19/17 05:43 A-a Gradient 21.0 mmHg 11/19/17 05:43 FiO2 21.000 11/19/17 05:43 Blood Gas Comments Marva well jts 11/19/17 05:43 Sodium 144 mmol/L (136-145) 11/20/17 04:56 Corrected Sodium TNP 11/20/17 04:56 Potassium 3.5 mmol/L (3.5-5.1) 11/20/17 04:56 Chloride 107 mmol/L (98-107) 11/20/17 04:56 Carbon Dioxide 33.1 mmol/L (21-32) H 11/20/17 04:56 BUN 2 mg/dL (7-18) L 11/20/17 04:56 Creatinine 0.53 mg/dL (0.70-1.30) L 11/20/17 04:56 Est GFR (MDRD) Af Amer > 60 (>60) 11/20/17 04:56 Est GFR (MDRD) Non-Af > 60 (>60) 11/20/17 04:56 Glucose 79 mg/dL (65-99) 11/20/17 04:56 POC Glucose (mg/dL) 88 mg/dL (65-99) 11/20/17 05:21 Calcium 8.5 mg/dL (8.5-10.1) 11/20/17 04:56 Corrected Calcium 9.5 mg/dL (8.5-10.1) 11/20/17 04:56 Magnesium 1.9 mg/dL (1.7-2.9) 11/19/17 05:41 Total Bilirubin 0.10 mg/dL (0.2-1.0) L 11/20/17 04:56 AST 15 Units/L (15-37) 11/20/17 04:56 ALT 18 Units/L (12-78) 11/20/17 04:56 Alkaline Phosphatase 69 Units/L (46-116) 11/20/17 04:56 Creatine Kinase 22 Units/L (39-308) L 11/16/17 17:53 CK-MB (CK-2) < 1.0 ng/mL (0-4.0) 11/16/17 17:53 CK/CKMB % Calc 4.6 % (<4) 11/16/17 17:53 Troponin I < 0.02 ng/mL (0-1.5) 11/16/17 17:53 Total Protein 5.3 g/dL (6.4-8.2) L 11/20/17 04:56 Albumin 2.7 g/dL (3.4-5.0) L 11/20/17 04:56 Globulin 2.6 g/dL (2.5-4.5) 11/20/17 04:56 Albumin/Globulin Ratio 1.0 Ratio (1.1-2.1) L 11/20/17 04:56 Lipase 35 Units/L (73-393) L 11/10/17 05:25 Specimen Type Random urine 11/10/17 15:58 Urine Color Yellow (YELLOW) 11/10/17 15:58 Urine Appearance Clear (CLEAR) 11/10/17 15:58 Urine pH 5.0 (5.0 - 8.0) 11/10/17 15:58 Ur Specific [place] 1.020 (1.000-1.030) 11/10/17 15:58 Urine Protein Negative (NEGATIVE) 11/10/17 15:58 Urine Glucose (UA) 4+ (NEGATIVE) 11/10/17 15:58 Urine Ketones 4+ (NEGATIVE) 07/13/18 15:58 Urine Occult Blood 1+ (NEGATIVE) 11/10/17 15:58 Urine Nitrite Negative (NEGATIVE) 11/10/17 15:58 Urine Bilirubin Negative (NEGATIVE) 11/10/17 15:58 Urine Urobilinogen Normal (NORMAL) 11/10/17 15:58 Ur Leukocyte Esterase Negative (NEGATIVE) 11/10/17 15:58 Urine RBC 0-2 /HPF (NONE SEEN) 11/10/17 15:58 Urine WBC 0-2 /HPF (NONE SEEN) 11/10/17 15:58 Ur Squamous Epith Cells Rare /HPF (NEGATIVE) 11/10/17 15:58 Urine Bacteria Trace /HPF (NEGATIVE) 11/10/17 15:58 Urine Mucus Rare /HPF (NEGATIVE) 11/10/17 15:58 Ur Culture Indicated? No/not indicated 11/10/17 15:58 Urine Opiates Screen Negative (NEG=<300) 11/10/17 15:58 Urine Methadone Screen Positive (NEG=<300) 11/10/17 15:58 Ur Barbiturates Screen Negative (NEG=<200) 11/10/17 15:58 Ur Phencyclidine Scrn Negative (NEG=<25) 11/10/17 15:58 Ur Amphetamines Screen Positive (NEG=<1000) 11/10/17 15:58 U Benzodiazepines Scrn Positive (NEG=<200) 11/10/17 15:58 Urine Cocaine Screen Negative (NEG=<300) 11/10/17 15:58 U Marijuana (THC) Screen Negative (NEG=<50) 11/10/17 15:58 Acetone, Semi-Quant Negative (NEGATIVE) 11/20/17 04:56 - Plan (1) Type I diabetes mellitus Status: Chronic Qualifiers: Diabetes mellitus complication status: with hyperglycemia Qualified Code(s) : E10.65 - Type 1 diabetes mellitus with hyperglycemia Plan: BOLUS 2 LITERS NS WITH 2 AMPS BICARB EACH THEN NS WITH 20MEQ KCL AND 2 AMPS BICARB TO EACH LITER AT 150ML/HR, HUMULIN R INSULIN DRIP, MONITOR OTBS (2) Chest pain Status: Acute Qualifiers: Chest pain type: unspecified Qualified Code(s): R07.9 - Chest pain, unspecified Plan: OBTAIN CHEST CT, OBTAIN SERIAL CARDIAC ENZYMES AND EKG, CONTINUE TO MONITOR. (3) Essential hypertension, benign Status: Chronic Plan: CONTINUE HOME MEDICATIONS (4) Constipation Status: Acute Qualifiers: Constipation type: slow transit constipation Qualified Code(s): K59.01 - Slow transit constipation (5) Hypertension Status: Acute Qualifiers: Hypertension type: essential hypertension Qualified Code(s): I10 - Essential (primary) hypertension Plan: LISINOPRIL 20MG PO BID, AMLODIPINE 5MG PO HS, CONTINUE TO MONITOR
== END 2017-11-20 11:30 | disposition home health service (06) | DRG 639 ==
LOC: ER 04:38 → ICU 08:12
PROVIDERS: ADMIT Internal Medicine; ATTEND Internal Medicine
DX: F41.8 Other specified anxiety disorders; R10.84 Generalized abdominal pain; E87.6 Hypokalemia; F32.89 Other specified depressive episodes; K21.9 Gastro-esophageal reflux disease without esophagitis; R11.2 Nausea with vomiting, unspecified; K56.41 Fecal impaction; R53.1 Weakness; E10.10 Type 1 diabetes mellitus with ketoacidosis without coma; K31.84 Gastroparesis; E10.43 Type 1 diabetes mellitus with diabetic autonomic (poly)neuropathy; E86.0 Dehydration; I10 Essential (primary) hypertension
CPT/HCPCS: 36415; 36600; 71250; 74000; 74018; 74022; 80048; 80053; 80307; 81001; 81003; 82009; 82550; 82553; 82803; 82947; 83690; 83735; 84132; 84484; 85025; 93005; 96365; 96367; 96374; 99284; 99285; A4222; J7030; S0028; G0434; J1815; J1817; J2175; J2405; J2550; J3475; J3480; J3490; J7050

== ENCOUNTER 2017-11-25 08:30 | Inpatient (IN) ==
[2017-11-25] MEDS ORDERED: NS 1000 ML 1,000 ML ONE ×4 (08:34→14:15)
[2017-11-25] MEDS ORDERED: ZOFRAN INJ 4 MG VIAL ONE (08:52)
[2017-11-25] MEDS ORDERED: NS 1000 ML 1,000 ML IV ONE ×2 (08:54→08:59)
[2017-11-25] MEDS ORDERED: ZOFRAN INJ 4 MG VIAL IVP ONE (08:54)
--- NOTE | 2017-11-25 08:57 | DR.N/VMALE ---
HPI Time Seen Time seen: 08:45 Primary Care Physician Primary Care Physician: KRYS PALMER Complaints Chief Complaint Doctors Comments: Patient presented to the ED via EMS because of nausea,vomiting and abdominal pain for 2-3 days. He has a history of IDDM and chronic pain. He was discharged from the hospital 3-4 days ago for similar or same diagnoses. Chief Complaint:: PT TO ER WITH C/O N/V/ ABD PAIN AND WEAKNESS, PT IS PALE HR > 140 BPM PT IS REQUESTING PAIN MEDS FOR HIS ABD PAIN PT STATES THIS HAS BEEN GOING ON FOR A FEW DAYS ,,BR Self Treatment fo Chief Complaint: NONE Source History Provided: Patient Mode of Arrival Mode of Arrival: Stretcher Timing Onset of Chief Complaint: 11/23/17 PMH PMH Past Medical History: Yes Past Medical History: Anxiety, Depression, Diabetes, GERD and Hypertension Past Surgical History: Yes Surgical History: Other Family History History of Family Medical Conditions: Yes Family Medical History: Diabetes Mellitus, Sudden Cardiac and Hypertension Social History Does patient currently use any type of tobacco product: No Have you used tobacco products in the last 12 months: No Type of Tobacco Use: None Does any household member use tobacco: No Alcohol Use: None Do you use any recreational Drugs:: No Lives With: Family Lives Where: Home infectious screening In the last 2 months have you had wt loss of >10#?: NO Have you had fever, night sweats or hemotysis?: No Have you traveled outside the country in the last 6 months?: No Isolation: Standard ROS Review of Systems Constitutional: No Symptoms Reported; negative Diaphoresis and Weakness Eyes: No Symptoms Reported ENTM: No Symptoms Reported Respiratoy: No Symptoms Reported Cardiovascular: No Symptoms Reported Gastrointestinal/Abdominal: No Symptoms Reported Genitourinary: No Symptoms Reported Neurological: No Symptoms Reported Musculoskeletal: No Symptoms Reported Integumentary: No Symptoms Reported Hematologic/Lymphatic: No Symptoms Reported Endocrine: No Symptoms Reported Psychiatric: No Symptoms Reported All Other Systems: Reviewed and Negative PE Vital Signs Vitals: Temperature 97.0 F Pulse Rate 89 Respiratory Rate 20 Blood Pressure [Left Arm] 130/79 Blood Pressure [Right Arm] 165/93 Blood Pressure 116/62 O2 Sat by Pulse Oximetry 99 General Limitations: No Limitations and Physical Limitation General Appearance: Alert and Anxious Eyes Eye exam: Normal Appearance, PERRL, EOMI and Other (gloves appears sunkened); negative Scleral Icterus, Conjunctival Injection, Nystagmus, Miosis and Periorbital Swelling ENT ENT Exam: Normal Exam, Normal Oropharynx, Normal External Ear Exam, Mucous Membranes Dry and TM's Normal Bilaterally Neck Neck Exam: Normal Inspection, Full ROM and Trachea Midline; negative Tenderness , Meningismus, Lymphadenopathy and Thyromegaly Chest Chest Inspection: Normal Inspection and Symmetric Chest Wall Rise; negative Tenderness Respiratory Respiratory Exam: Bilateral: Clear to Auscultation Cardiovascular Cardiovascular Exam: Tachycardia and Normal Heart Sounds Abdominal Exam Abdominal Exam: Normal Inspection, Soft and Tenderness (generalized) Rectal Rectal Exam: Deferred Exam: Male: Deferred Back Back Exam: Normal Inspection and Full ROM; negative Tenderness, (R) CVA Tenderness, (L) CVA Tenderness, Muscle Spasm, Paraspinal Tenderness, Vertebral Tenderness and Rashes Neurologic Neurological Exam: Alert, Oriented X3, CN II-XII Intact and Reflexes Normal Psychiatric Psychiatric Exam: Normal Affect, Normal Mood and Anxious; negative Manic, Homicidal Ideation and Suicidal Ideation Skin Skin Exam: Warm, Dry, Intact and Normal Color; negative Rash, Cyanosis, Diaphoresis, Erythema, Pallor and Mottled ROR Labs Reviewed Laboratory: Sample Site [facility] 11/25/17 08:45 ABG pH 7.260 (7.35-7.45) L 11/25/17 08:45 ABG pCO2 12.0 mmHg (35.0-45.0) L* 11/25/17 08:45 ABG pO2 125.0 mmHg (80.0-100.0) H 11/25/17 08:45 ABG HCO3 5.4 mmol/L (22-26) L* 11/25/17 08:45 ABG O2 Saturation 98.0 % (90-100) 11/25/17 08:45 ABG Base Excess -19.0 mmol/L (-2.0-2.0) L 11/25/17 08:45 Geoff Test Na 11/25/17 08:45 A-a Gradient 10.0 mmHg 11/25/17 08:45 FiO2 21.000 11/25/17 08:45 Blood Gas Comments Marva abg well-mtf 11/25/17 08:45
[2017-11-25 08:58] LABS: ABG HCO3 5.4 mmol/L (22-26)
[2017-11-25] MEDS ORDERED: PHENERGAN INJ 25 MG IV ONE (09:13)
[2017-11-25] MEDS ORDERED: PHENERGAN INJ 25 MG ONE (09:15)
[2017-11-25 09:20] LABS: BASOPHILS # (AUTO) 0.1 X10^3/uL (0.0-0.1); BASOPHILS % (AUTO) 0.4 % (0.2-1.0); HEMATOCRIT 39.9 % (42.0-54.0); HEMOGLOBIN 12.7 g/dL (13.5-18.0); LYMPHOCYTES # (AUTO) 2.4 X10^3/uL (1.3-2.9); LYMPHOCYTES % (AUTO) 9.2 % (21.0-51.0); MEAN CORPUSCULAR HEMOGLOBIN 29.6 pg (27.0-34.0); MEAN CORPUSCULAR HGB CONC 31.8 g/dL (33.0-35.0); MEAN CORPUSCULAR VOLUME 93.2 fL (80.0-100.0); MEAN PLATELET VOLUME 8.8 fL (7.4-11.0); MONOCYTES # (AUTO) 1.2 x10^3/uL (0.3-0.8); MONOCYTES % (AUTO) 4.7 % (0.0-13.0); NEUTROPHILS # (AUTO) 21.9 x10^3/uL (2.2-4.8); NEUTROPHILS % (AUTO) 85.7 % (42.0-75.0); PLATELET COUNT 400 X10^3/uL (150.0-450.0); RED BLOOD COUNT 4.29 X10^6/uL (4.7-6.0); RED CELL DISTRIBUTION WIDTH 16.2 % (11.6-16.5); WHITE BLOOD COUNT 25.6 X10^3/uL (3.6-10.0)
[2017-11-25 09:22] LABS: ALANINE AMINOTRANSFERASE 25 Units/L (12-78); ALBUMIN 3.4 g/dL (3.4-5.0); ALKALINE PHOSPHATASE 101 Units/L (46-116); ASPARTATE AMINO TRANSFERASE 12 Units/L (15-37); BLOOD UREA NITROGEN 20 mg/dL (7-18); CALCIUM 9.2 mg/dL (8.5-10.1); CHLORIDE 88 mmol/L (98-107); CREATININE 1.53 mg/dL (0.70-1.30); SODIUM 128 mmol/L (136-145); TOTAL PROTEIN 7.1 g/dL (6.4-8.2); eGFR NON BLACK RACES 55 (>60)
[2017-11-25 09:25] LABS: CARBON DIOXIDE 6.6 mmol/L (21-32); COR NA(FOR HYPERGLY) 140 mmol/L (136-145)
[2017-11-25 09:29] LABS: SERUM ACETONE LARGE (NEGATIVE)
[2017-11-25 09:34] LABS: BAND NEUTROPHILS % 9 % (0-10); PLATELET MORPHOLOGY COMMENT NORMAL (NORMAL)
--- NOTE | 2017-11-25 10:06 | RAD ---
Examination: KUB, one view History: Nausea vomiting pain Comparison reference 11/13/2017 Findings: Nonobstructive intestinal gas pattern. No evidence for ascites, mass formation or pathologi c calcification. Impression: No acute or significant findings. Reported By:
[2017-11-25] MEDS ORDERED: ACCUNEB 1.25 MG NEBULE NEB ONE (10:14)
[2017-11-25] MEDS ORDERED: NS 100 ML IV 100 ML IV ONE (10:36)
[2017-11-25] MEDS ORDERED: HumuLIN R ONE (10:38)
[2017-11-25] MEDS ORDERED: HumuLIN R SUBCUT PRN (10:49)
[2017-11-25 12:39] LABS: ALBUMIN 3.3 g/dL (3.4-5.0); CALCIUM 8.9 mg/dL (8.5-10.1); COR CA(FOR HYPOALB) 9.5 mg/dL (8.5-10.1); CREATININE 1.79 mg/dL (0.70-1.30)
[2017-11-25 12:43] LABS: CARBON DIOXIDE 7.3 mmol/L (21-32)
[2017-11-25] MEDS ORDERED: SODIUM BICARBONATE 8.4% INJ ADULT ONE ×2 (12:46→14:16)
[2017-11-25] MEDS ORDERED: HumuLIN R IV PRN (12:53)
[2017-11-25] MEDS ORDERED: NS IV ONE ×2 (13:05)
[2017-11-25] MEDS ORDERED: SODIUM BICARBONATE IV ONE ×2 (13:05)
[2017-11-25] MEDS ORDERED: ROCEPHIN VIAL 2 GRAMS IM ONE (13:41)
[2017-11-25] MEDS ORDERED: ROCEPHIN VIAL 2 GRAMS ONE ×2 (14:03→14:29)
[2017-11-25] MEDS ORDERED: TOBRAMYCIN SULFATE 120 MG in NS 100 ML IV 100 ML IV ONE (14:33)
[2017-11-25] MEDS ORDERED: VANCOMYCIN HCL 1 GM VIAL ONE (14:43)
[2017-11-25] MEDS ORDERED: NS 250 ML IV 250 ML IV ONE ×2 (14:43→14:46)
[2017-11-25] MEDS: VANCOMYCIN HCL 1 GM VIAL 1 G in D5W 250 ML IV 250 ML IV SCH ×2 (14:52→20:18)
[2017-11-25] MEDS: SODIUM BICARBONATE IV SCH ×4 (14:53→20:37)
[2017-11-25] MEDS: NS IV SCH ×4 (14:53→20:37)
[2017-11-25 16:37] LABS: SERUM ACETONE MODERATE (NEGATIVE)
[2017-11-25 16:41] LABS: BLOOD UREA NITROGEN 20 mg/dL (7-18); CHLORIDE 105 mmol/L (98-107); CKMB % 1.6 % (<4); COR NA(FOR HYPERGLY) 147 mmol/L (136-145); CREATINE KINASE MB 2.5 ng/mL (0-4.0); CREATININE 1.32 mg/dL (0.70-1.30); SODIUM 141 mmol/L (136-145); TROPONIN I < 0.02 ng/mL (0-1.5); eGFR NON BLACK RACES > 60 (>60)
[2017-11-25 16:44] LABS: CREATINE KINASE 159 Units/L (39-308)
[2017-11-25 16:46] LABS: CARBON DIOXIDE 10.4 mmol/L (21-32)
[2017-11-25 16:51] LABS: ABG BASE EXCESS -11.1 mmol/L (-2.0-2.0)
[2017-11-25 16:52] LABS: ABG ALLEN TEST POS; ABG HCO3 12.1 mmol/L (22-26)
[2017-11-25 17:15] VITALS: BMI 22.1
--- NOTE | 2017-11-25 17:33 | RAD ---
Examination: AP chest History: DKA, sepsis Comparison reference 10/26/2017 Findings: Normal heart size with clear lungs and pleural spaces. Right subclavian injection port term inates at the right atrium. Impression: No change or acute findings. Reported By:
[2017-11-25] MEDS: PHENERGAN INJ 25 MG IVP PRN (17:41)
[2017-11-25 19:35] LABS: BILIRUBIN,URINE NEGATIVE (NEGATIVE); BLOOD/HEMOGLOBIN,URINE NEGATIVE (NEGATIVE); GLUCOSE, URINE 4+ (NEGATIVE); KETONES,URINE 4+ (NEGATIVE); LEUKOCYTE ESTERASE ,URINE NEGATIVE (NEGATIVE); NITRITES,URINE NEGATIVE (NEGATIVE); PROTEIN,URINE 1+ (NEGATIVE); UROBILINOGEN,URINE NORMAL (NORMAL)
[2017-11-25] MEDS ORDERED: DILAUDID INJ IVP PRN (19:45)
[2017-11-25 19:50] LABS: APPEARANCE,URINE HAZY (CLEAR); BACTERIA,URINE NEGATIVE /HPF (NEGATIVE); COLOR,URINE PALE YELLOW (YELLOW); MUCUS,URINE RARE /HPF (NEGATIVE); RBC,URINE 0-2 /HPF (NONE SEEN); SQUAMOUS EPITHELIAL CELL,UR RARE /HPF (NEGATIVE)
[2017-11-25] MEDS ORDERED: SNACK - Diabetic Appropriate PO SCH (20:00)
[2017-11-25] MEDS ORDERED: NS 100 ML IV + SPIKE MINIBAG* 100 ML IV ONE (20:02)
[2017-11-25] MEDS: ATIVAN INJ 2 MG VIAL IVP SCH (20:09)
[2017-11-25] MEDS: DILAUDID INJ IVP PRN (20:10)
[2017-11-25 20:19] LABS: BLOOD UREA NITROGEN 18 mg/dL (7-18); CALCIUM 8.1 mg/dL (8.5-10.1); CARBON DIOXIDE 17.9 mmol/L (21-32); CHLORIDE 106 mmol/L (98-107); COR NA(FOR HYPERGLY) 148 mmol/L (136-145); CREATININE 1.25 mg/dL (0.70-1.30); SODIUM 145 mmol/L (136-145); eGFR NON BLACK RACES > 60 (>60)
[2017-11-25] MEDS: MAXIPIME VIAL 1 GRAM IV SCH (20:19)
[2017-11-25] MEDS: SNACK - Diabetic Appropriate PO SCH (20:20)
[2017-11-25] MEDS ORDERED: NS 500 ML IV 500 ML IV ONE (21:00)
[2017-11-26 00:11] LABS: ABG BASE EXCESS -6.2 mmol/L (-2.0-2.0)
[2017-11-26 00:12] LABS: ABG HCO3 17.3 mmol/L (22-26)
[2017-11-26 00:44] LABS: BLOOD UREA NITROGEN 12 mg/dL (7-18); CALCIUM 7.6 mg/dL (8.5-10.1); CARBON DIOXIDE 17.4 mmol/L (21-32); CHLORIDE 108 mmol/L (98-107); COR NA(FOR HYPERGLY) 146 mmol/L (136-145); CREATININE 0.99 mg/dL (0.70-1.30); SODIUM 144 mmol/L (136-145); eGFR NON BLACK RACES > 60 (>60)
[2017-11-26] MEDS: NS IV SCH ×12 (01:07→23:59)
[2017-11-26] MEDS: SODIUM BICARBONATE IV SCH ×12 (01:07→23:59)
[2017-11-26] MEDS: DILAUDID INJ IVP PRN ×2 (01:07→07:10)
[2017-11-26] MEDS: ATIVAN INJ 2 MG VIAL IVP SCH ×2 (04:01→13:04)
[2017-11-26 05:26] LABS: BASOPHILS # (AUTO) 0.1 X10^3/uL (0.0-0.1); BASOPHILS % (AUTO) 0.2 % (0.2-1.0); HEMATOCRIT 31.4 % (42.0-54.0); HEMOGLOBIN 10.7 g/dL (13.5-18.0); LYMPHOCYTES # (AUTO) 1.8 X10^3/uL (1.3-2.9); LYMPHOCYTES % (AUTO) 8.5 % (21.0-51.0); MEAN CORPUSCULAR HGB CONC 34.2 g/dL (33.0-35.0); MEAN CORPUSCULAR VOLUME 87.6 fL (80.0-100.0); MEAN PLATELET VOLUME 8.3 fL (7.4-11.0); MONOCYTES % (AUTO) 9.1 % (0.0-13.0); NEUTROPHILS # (AUTO) 17.9 x10^3/uL (2.2-4.8); NEUTROPHILS % (AUTO) 82.2 % (42.0-75.0); PLATELET COUNT 304 X10^3/uL (150.0-450.0); RED BLOOD COUNT 3.58 X10^6/uL (4.7-6.0); RED CELL DISTRIBUTION WIDTH 16.5 % (11.6-16.5); WHITE BLOOD COUNT 21.8 X10^3/uL (3.6-10.0)
[2017-11-26 05:34] LABS: BLOOD UREA NITROGEN 10 mg/dL (7-18); CALCIUM 8.3 mg/dL (8.5-10.1); CARBON DIOXIDE 21.1 mmol/L (21-32); CHLORIDE 109 mmol/L (98-107); COR NA(FOR HYPERGLY) 148 mmol/L (136-145); CREATININE 0.92 mg/dL (0.70-1.30); SODIUM 146 mmol/L (136-145); eGFR NON BLACK RACES > 60 (>60)
[2017-11-26 06:24] LABS: BAND NEUTROPHILS % 3 % (0-10); PLATELET MORPHOLOGY COMMENT NORMAL (NORMAL)
--- NOTE | 2017-11-26 06:39 | RAD ---
Examination: Portable AP chest History: DKA Comparison reference 11/25/2017 Findings: Continued normal heart size with clear lungs and pleural spaces. Stable position of right s ubclavian injection port. Impression: No change; no acute findings. Reported By:
[2017-11-26] MEDS ORDERED: NS 100 ML IV + SPIKE MINIBAG* 100 ML IV ONE ×2 (08:57→20:05)
[2017-11-26] MEDS: MAXIPIME VIAL 1 GRAM IV SCH ×2 (09:02→20:25)
[2017-11-26] MEDS: VANCOMYCIN HCL 1 GM VIAL 1 G in D5W 250 ML IV 250 ML IV SCH ×2 (09:03→21:52)
[2017-11-26] MEDS ORDERED: NS 25 ML IV 25 ML IV ONE (09:48)
[2017-11-26] MEDS: PHENERGAN INJ 25 MG IVP PRN (09:51)
[2017-11-26 09:53] LABS: ABG BASE EXCESS -3.3 mmol/L (-2.0-2.0); ABG HCO3 19.5 mmol/L (22-26)
[2017-11-26] MEDS: ZESTRIL TAB 10 MG PO SCH (13:04)
[2017-11-26] MEDS: METHADONE HCL PO PRN (20:25)
[2017-11-26] MEDS: KLONOPIN TAB 1 MG PO SCH (20:25)
[2017-11-26] MEDS: COLACE CAP 100 MG PO SCH (20:25)
[2017-11-26] MEDS: SNACK - Diabetic Appropriate PO SCH (20:29)
[2017-11-26] MEDS ORDERED: MILK OF MAGNESIA PO SCH (21:00)
[2017-11-26 21:32] LABS: CREATININE 0.85 mg/dL (0.70-1.30); VANCOMYCIN,TROUGH 5.7 ug/mL (15-20)
[2017-11-27] MEDS: NS IV SCH ×8 (03:38→15:24)
[2017-11-27] MEDS: SODIUM BICARBONATE IV SCH ×8 (03:38→15:24)
[2017-11-27] MEDS: METHADONE HCL PO PRN ×3 (04:23→19:46)
[2017-11-27] MEDS: XANAX PO PRN (04:26)
[2017-11-27 04:34] LABS: BASOPHILS % (AUTO) 0.3 % (0.2-1.0); EOSINOPHILS % (AUTO) 0.1 % (0.9-2.9); HEMATOCRIT 32.6 % (42.0-54.0); HEMOGLOBIN 11.2 g/dL (13.5-18.0); LYMPHOCYTES % (AUTO) 19.2 % (21.0-51.0); MEAN CORPUSCULAR HEMOGLOBIN 29.8 pg (27.0-34.0); MEAN CORPUSCULAR HGB CONC 34.3 g/dL (33.0-35.0); MEAN CORPUSCULAR VOLUME 86.8 fL (80.0-100.0); MEAN PLATELET VOLUME 7.7 fL (7.4-11.0); MONOCYTES # (AUTO) 1.5 x10^3/uL (0.3-0.8); MONOCYTES % (AUTO) 9.8 % (0.0-13.0); NEUTROPHILS # (AUTO) 11.1 x10^3/uL (2.2-4.8); NEUTROPHILS % (AUTO) 70.6 % (42.0-75.0); PLATELET COUNT 258 X10^3/uL (150.0-450.0); RED BLOOD COUNT 3.75 X10^6/uL (4.7-6.0); RED CELL DISTRIBUTION WIDTH 15.8 % (11.6-16.5); WHITE BLOOD COUNT 15.6 X10^3/uL (3.6-10.0)
[2017-11-27 04:37] LABS: SERUM ACETONE SMALL (NEGATIVE)
[2017-11-27 04:38] LABS: ALANINE AMINOTRANSFERASE 20 Units/L (12-78); ALBUMIN 2.9 g/dL (3.4-5.0); ALKALINE PHOSPHATASE 85 Units/L (46-116); ASPARTATE AMINO TRANSFERASE 12 Units/L (15-37); BLOOD UREA NITROGEN 3 mg/dL (7-18); CALCIUM 8.3 mg/dL (8.5-10.1); CARBON DIOXIDE 31.9 mmol/L (21-32); CHLORIDE 105 mmol/L (98-107); COR CA(FOR HYPOALB) 9.2 mg/dL (8.5-10.1); COR NA(FOR HYPERGLY) 144 mmol/L (136-145); CREATININE 0.76 mg/dL (0.70-1.30); SODIUM 143 mmol/L (136-145); eGFR NON BLACK RACES > 60 (>60)
[2017-11-27 04:42] LABS: LACTIC ACID 0.9 mmol/L (0.4-2.0)
[2017-11-27] MEDS ORDERED: K-RIDER 10 MEQ/NS 100 ML 10 MEQ/100 ML BAG IV PRN (04:51)
[2017-11-27] MEDS ORDERED: POTASSIUM CHLORIDE LIQ 20 MEQ UDC PO PRN (04:51)
[2017-11-27] MEDS ORDERED: POTASSIUM CHL 40 MEQ/NS 0.45% 500 ML IV PRN (04:51)
[2017-11-27] MEDS ORDERED: K-LYTE EFFERVESCENT PO PRN (04:51)
[2017-11-27] MEDS ORDERED: POTASSIUM CHL 60 MEQ/NS 0.45% 500 ML 60 MEQ/500 ML BAG IV ONE (04:54)
[2017-11-27] MEDS: POTASSIUM CHL 60 MEQ/NS 0.45% 500 ML IV PRN ×2 (05:05→16:30)
[2017-11-27] MEDS: MAGNESIUM SULFATE 1 GRAM/100 mL PREMIX 1 GM/100 ML BAG IV PRN ×4 (05:50→11:10)
[2017-11-27 06:19] LABS: ABG BASE EXCESS 7.6 mmol/L (-2.0-2.0)
[2017-11-27] MEDS ORDERED: NS 100 ML IV + SPIKE MINIBAG* 100 ML IV ONE ×2 (08:00→21:13)
[2017-11-27] MEDS: ZESTRIL TAB 10 MG PO SCH (08:09)
[2017-11-27] MEDS: MAXIPIME VIAL 1 GRAM IV SCH ×2 (08:09→21:31)
--- NOTE | 2017-11-27 08:41 | DR.H&P ---
H&P - History & Physical for Day of: H&P Date: 11/25/17 - Chief Complaint Chief Complaint: Patient presented to the ED via EMS because of nausea,vomiting and abdominal pain for 2-3 days. He has a history of IDDM and chronic pain. He was discharged from the hospital 3-4 days ago for similar or same diagnoses. - History of Present Illness History of Present Illness: 37 [facility] ER ADMISSION AFTER PRESENTING WITH CO ABDOMINAL PAIN N/V FOR SEVERAL DAYS WITH HYPERGYCEMIA, LONG HISTORY OF UNCONTROLLED DIABETES, NON COMPLIANCE. PT EVALUATED IN ER, PT IN DKA, STARTED ON IV INSULIN DRIP AND ADMITTED TO ICU. - Past Medical History Past Medical History: Hypertension, Diabetes, Depression, Anxiety, GERD Additional Medical History: DKA, Gastroparesis, Chronic Low Back Pain With Radiculopathy, Pancreatitis, UTI's - Past Surgical History Surgical History: Other Additional Surgical History: [place] Teeth Surgically Removed - Family History Family Medical History: Diabetes Mellitus, Sudden Cardiac , Hypertension - Social History Does patient currently use any type of tobacco product: Yes Have you used tobacco products in the last 12 months: Yes Type of Tobacco Use: Cigarettes Does any household member use tobacco: Yes Alcohol Use: Occasionally Drug Use: Prescription Drugs, Methamphetamine - Medications Home Medications: No Known Drug Allergies Allergy (Verified 10/07/17 10:20) - Review of Systems Constitutional: Chills, Weakness Eyes: No Symptoms Reported ENT: No Symptoms Reported Respiratory: No Symptoms Reported Cardiovascular: No Symptoms Reported Gastrointestinal: Nausea, Vomiting, Abdominal Pain, Constipation Genitourinary: No Symptoms Reported Musculoskeletal: Back Pain, Leg Pain Skin: No Symptoms Reported Neurological: No Symptoms Reported - Physical Exam Vital Signs: Temperature 98.0 F Pulse Rate [Left Brachial] 105 Pulse Rate 144 Respiratory Rate 18 Blood Pressure [Left Arm] 144/93 Blood Pressure [Right Arm] 165/93 Blood Pressure 116/62 O2 Sat by Pulse Oximetry 97 Oriented: Normal Eyes: Normal Ear: Normal Nose: Normal Throat: Dry Respiratory: RLL Diminished, LLL Diminished Cardiovascular: Tachycardia : Normal Auscultation: Bowel Sounds: Normal Palpation: Normal Tenderness: RUQ, LUQ, Epigastric Skin: Decreased Turgur Musculoskeletal: Back:Lumbar Psychiatric: Normal Mood Description: Depressed Speech Pattern: Clear, Appropriate - Assessment/Plan (1) DKA (diabetic ketoacidoses) Qualifiers: Status: Acute Plan: ADMIT ICU, INSULIN DRIP, BS PER PROTOCOL. CONTINUOUS CARDIAC MONITORING. CONFIRM HOME MEDS, IV HYDRATION, SUPPLEMENTAL O2. BP CONTROL, SERUM ACETONE, REPEAT AM LABS. I &OS, NPO AND ADVANCE TO ICE CHIPS, CLEAR LIQUIS TOLERATED. PAIN AND NAUSEA CONTROL (2) Hypertension Qualifiers: Hypertension type: essential hypertension Qualified Code(s): I10 - Essential (primary) hypertension Status: Acute (3) Constipation Qualifiers: Constipation type: slow transit constipation Qualified Code(s): K59.01 - Slow transit constipation Status: Acute (4) Thoracic or lumbosacral neuritis or radiculitis Status: Chronic (5) GERD (gastroesophageal reflux disease) Qualifiers: Esophagitis presence: esophagitis presence not specified Qualified Code(s) : K21.9 - Gastro-esophageal reflux disease without esophagitis Status: Chronic - Allergies Allergies/Adverse Reactions: Allergies Allergy/AdvReac Type Severity Reaction Status Date / Time No Known Drug Allergies Allergy Verified 10/07/17 10:20
[2017-11-27] MEDS: VANCOMYCIN HCL 1 GM VIAL 1 G in D5W 250 ML IV 250 ML IV SCH ×2 (08:42→21:29)
--- NOTE | 2017-11-27 08:47 | PCM.PROG ---
Progress Note - Progress Note for Day of Date of Exam: 11/26/17 - Subjective Subjective: 37 [facility] ER ADMISSION ONE DAY AGO WITH DKA, PT CONTINUES WITH CO ABDOMINAL PAIN AND NAUSEA, KUB WITHOUT ACUTE FINDINGS. PT CURRENTLY ON IV NAUSEA CONTROL AND IV NARCOTIC PAIN CONTROL, PT CONTINUES WITH SINUS TACHYCARDIA 120'S. PT IMPROVING GLUCOSE LEVELS, CONTINUES WITH INSULTIN DRIP AT 2U. PT WITHOUT VOMITING THIS AM, SERUM ACETONE IMPROVED TO MODERATE. WILL CONTINUE CURRENTLY PLAN , GENTLE HYDRATION, BLOOD SUGAR CONTROL, REPEAT ABG, BOWEL REGIMEN, REPEAT AM LABS, BP CONTROL - Past Medical Family Social History Past Med/Fam/Surg Hx: No changes since H&P Allergies: Allergies No Known Drug Allergies Allergy (Verified 10/07/17 10:20) - Review of Systems ROS: No change since H&P - Vital Signs and I&O's Vital Signs: Temperature 98.0 F Pulse Rate [Left Brachial] 105 Pulse Rate 144 Respiratory Rate 18 Blood Pressure [Left Arm] 144/93 Blood Pressure [Right Arm] 165/93 Blood Pressure 116/62 O2 Sat by Pulse Oximetry 97 Intake and Output: Intake & Output 11/24/17 11/25/17 11/26/17 11/27/17 11:59 11:59 11:59 11:59 Intake Total 2456 / 2456 5629 / 5629 Output Total 1800 / 1800 4200 / 4200 Balance 656 / 656 1429 / 1429 - Physical Exam Oriented: Normal Eyes: Normal Ear: Normal Nose: Normal Throat: Dry Respiratory: Diminished Cardiovascular: Tachycardia : Normal Auscultation: Bowel Sounds: Normal Tenderness: RUQ, LUQ, Epigastric Skin: Decreased Turgur Musculoskeletal: Back:Lumbar Psychiatric: Normal Mood Description: Depressed Speech Pattern: Clear, Appropriate - Laboratory and Diagnostics Result Diagrams: 11/27/17 04:20 11/27/17 04:20 Labs: Laboratory WBC 15.6 X10^3/uL (3.6-10.0) H 11/27/17 04:20 RBC 3.75 X10^6/uL (4.7-6.0) L 11/27/17 04:20 Hgb 11.2 g/dL (13.5-18.0) L 11/27/17 04:20 Hct 32.6 % (42.0-54.0) L 11/27/17 04:20 MCV 86.8 fL (80.0-100.0) 11/27/17 04:20 MCH 29.8 pg (27.0-34.0) 11/27/17 04:20 MCHC 34.3 g/dL (33.0-35.0) 11/27/17 04:20 RDW 15.8 % (11.6-16.5) 11/27/17 04:20 Plt Count 258 X10^3/uL (150.0-450.0) 11/27/17 04:20 Plt Count Comment Adequate (ADEQUATE) 11/26/17 04:00 MPV 7.7 fL (7.4-11.0) 11/27/17 04:20 Neut % (Auto) 70.6 % (42.0-75.0) 11/27/17 04:20 Lymph % (Auto) 19.2 % (21.0-51.0) L 11/27/17 04:20 [place] % (Auto) 9.8 % (0.0-13.0) 11/27/17 04:20 Eos % (Auto) 0.1 % (0.9-2.9) L 11/27/17 04:20 Baso % (Auto) 0.3 % (0.2-1.0) 11/27/17 04:20 Neut # (Auto) 11.1 x10^3/uL (2.2-4.8) H 11/27/17 04:20 Lymph # (Auto) 3.0 X10^3/uL (1.3-2.9) H 11/27/17 04:20 [place] # (Auto) 1.5 x10^3/uL (0.3-0.8) H 11/27/17 04:20 Eos # (Auto) 0.0 x10^3/uL (0.0-0.2) 11/27/17 04:20 Baso # (Auto) 0.0 X10^3/uL (0.0-0.1) 11/27/17 04:20 Absolute Nucleated RBC 0.1 /100WBC 11/27/17 04:20 Total Counted 100 11/26/17 04:00 Neutrophils % (Manual) 77 % (39-76) H 11/26/17 04:00 Band Neutrophils % 3 % (0-10) 11/26/17 04:00 Lymphocytes % (Manual) 9 % (13-43) L 11/26/17 04:00 Monocytes % (Manual) 11 % (4-9) H 11/26/17 04:00 Plt Morphology Comment Normal (NORMAL) 11/26/17 04:00 RBC Morphology Normal (NORMAL) 11/26/17 04:00 Sample Site Lbra 11/27/17 06:08 ABG pH 7.480 (7.35-7.45) H 11/27/17 06:08 ABG pCO2 43.0 mmHg (35.0-45.0) 11/27/17 06:08 ABG pO2 85.0 mmHg (80.0-100.0) 11/27/17 06:08 ABG HCO3 32.0 mmol/L (22-26) H* 11/27/17 06:08 ABG O2 Saturation 97.0 % (90-100) 11/27/17 06:08 ABG Base Excess 7.6 mmol/L (-2.0-2.0) H 11/27/17 06:08 Geoff Test Na 11/27/17 06:08 A-a Gradient 11.0 mmHg 11/27/17 06:08 FiO2 21.000 11/27/17 06:08 Blood Gas Comments Marva abg well-mtf 11/27/17 06:08 Sodium 143 mmol/L (136-145) 11/27/17 04:20 Corrected Sodium 144 mmol/L (136-145) 11/27/17 04:20 Potassium 2.5 mmol/L (3.5-5.1) L* 11/27/17 04:20 Chloride 105 mmol/L (98-107) 11/27/17 04:20 Carbon Dioxide 31.9 mmol/L (21-32) 11/27/17 04:20 BUN 3 mg/dL (7-18) L 11/27/17 04:20 Creatinine 0.76 mg/dL (0.70-1.30) 11/27/17 04:20 Est GFR (MDRD) Af Amer > 60 (>60) 11/27/17 04:20 Est GFR (MDRD) Non-Af > 60 (>60) 11/27/17 04:20 Glucose 158 mg/dL (65-99) H 11/27/17 04:20 POC Glucose (mg/dL) 203 mg/dL (65-99) H 11/27/17 07:35 Lactic Acid 0.9 mmol/L (0.4-2.0) 11/27/17 04:20 Calcium 8.3 mg/dL (8.5-10.1) L 11/27/17 04:20 Corrected Calcium 9.2 mg/dL (8.5-10.1) 11/27/17 04:20 Magnesium 1.3 mg/dL (1.7-2.9) L 11/27/17 04:20 Total Bilirubin 0.60 mg/dL (0.2-1.0) 11/27/17 04:20 AST 12 Units/L (15-37) L 11/27/17 04:20 ALT 20 Units/L (12-78) 11/27/17 04:20 Alkaline Phosphatase 85 Units/L (46-116) 11/27/17 04:20 Creatine Kinase 159 Units/L (39-308) 11/25/17 15:21 CK-MB (CK-2) 2.5 ng/mL (0-4.0) 11/25/17 15:21 CK/CKMB % Calc 1.6 % (<4) 11/25/17 15:21 Troponin I < 0.02 ng/mL (0-1.5) 11/25/17 15:21 Total Protein 6.0 g/dL (6.4-8.2) L 11/27/17 04:20 Albumin 2.9 g/dL (3.4-5.0) L 11/27/17 04:20 Globulin 3.1 g/dL (2.5-4.5) 11/27/17 04:20 Albumin/Globulin Ratio 0.9 Ratio (1.1-2.1) L 11/27/17 04:20 Specimen Type Clean catch urine 11/25/17 19:21 Urine Color Pale yellow (YELLOW) 11/25/17 19:21 Urine Appearance Hazy (CLEAR) 11/25/17 19:21 Urine pH 5.0 (5.0 - 8.0) 11/25/17 19:21 Ur Specific [place] 1.020 (1.000-1.030) 11/25/17 19:21 Urine Protein 1+ (NEGATIVE) 11/25/17 19:21 Urine Glucose (UA) 4+ (NEGATIVE) 11/25/17 19:21 Urine Ketones 4+ (NEGATIVE) 11/25/17 19:21 Urine Occult Blood Negative (NEGATIVE) 11/25/17 19:21 Urine Nitrite Negative (NEGATIVE) 11/25/17 19:21 Urine Bilirubin Negative (NEGATIVE) 11/25/17 19:21 Urine Urobilinogen Normal (NORMAL) 11/25/17 19:21 Ur Leukocyte Esterase Negative (NEGATIVE) 11/25/17 19:21 Urine RBC 0-2 /HPF (NONE SEEN) 11/25/17 19:21 Urine WBC 0-2 /HPF (NONE SEEN) 11/25/17 19:21 Ur Squamous Epith Cells Rare /HPF (NEGATIVE) 11/25/17 19:21 Urine Bacteria Negative /HPF (NEGATIVE) 11/25/17 19:21 Urine Mucus Rare /HPF (NEGATIVE) 11/25/17 19:21 Ur Culture Indicated? No/not indicated 11/25/17 19:21 Vancomycin Trough 5.7 ug/mL (15-20) L 11/26/17 21:02 Acetone, Semi-Quant Small (NEGATIVE) H 11/27/17 04:20 - Plan (1) DKA (diabetic ketoacidoses) Status: Acute Qualifiers: Plan: ICU- INSULIN DRIP, BS PER PROTOCOL. CONTINUOUS CARDIAC MONITORING. WILL CONTINUE CURRENTLY PLAN , GENTLE HYDRATION, BLOOD SUGAR CONTROL, REPEAT ABG, BOWEL REGIMEN, REPEAT AM LABS, BP CONTROL. PAIN AND NAUSEA CONTROL (2) Hypertension Status: Acute Qualifiers: Hypertension type: essential hypertension Qualified Code(s): I10 - Essential (primary) hypertension (3) Constipation Status: Acute Qualifiers: Constipation type: slow transit constipation Qualified Code(s): K59.01 - Slow transit constipation (4) Thoracic or lumbosacral neuritis or radiculitis Status: Chronic (5) GERD (gastroesophageal reflux disease) Status: Chronic Qualifiers: Esophagitis presence: esophagitis presence not specified Qualified Code(s) : K21.9 - Gastro-esophageal reflux disease without esophagitis (6) Hypokalemia Status: Acute Plan: POTASSIUM REPLACEMENT, REPEAT K PER PROTOCOL. CARDIAC MONITORING
[2017-11-27] MEDS ORDERED: NS 100 ML IV 100 ML IV ONE (12:43)
[2017-11-27] MEDS ORDERED: NS 1000 ML 1,000 ML ONE (13:49)
[2017-11-27] MEDS ORDERED: SODIUM BICARBONATE 8.4% INJ ADULT ONE (13:50)
--- NOTE | 2017-11-27 16:25 | CT ---
CT OF THE ABDOMEN AND PELVIS WITH CONTRAST HISTORY: Abdominal pain with sepsis Comparison: 10/24/2017 Technique: Multiple axial images of the abdomen and pelvis were obtained from the lung bases to the pubic symphy sis follow the administration of IV contrast as well as oral contrast. Dose reduction techniques inc luding Automated Exposure Control (AEC) and adjustment of mA and kV were utlized. Findings: The heart is normal in size. There is no pericardial effusion. Lung bases are clear without focal con solidation, pleural effusion or pneumothorax. Liver and spleen are normal in size, enhancement characteristics and contour. No focal lesions. The p ortal vein is patent. No ductal dilitation. Gallbladder is present. No calcified gallstones or gallbl adder wall thickening. The pancreas is unremarkable. Adrenal glands are normal. Kidneys enhance symme trically without hydronephrosis or nephrolithiasis. No bowel obstruction or inflammation. Large amount stool in the colon. No abnormal appearing mesenter ic or retroperitoneal lymph nodes. No free fluid or fluid collections. The bladder is normal in appearance. Prostate not enlarged. No free fluid or abnormal pelvic lymph no zaida. No aggressive osseous lesions. IMPRESSION: 1. No source of patient's sepsis is identified. 2. Large amount stool in the colon. Reported By:
[2017-11-27] MEDS ORDERED: DULCOLAX SUPPOSITORY 10 MG RECTAL SCH (17:00)
[2017-11-27] MEDS ORDERED: MIRALAX POWDER (1 DOSE 17 G) PO SCH (21:00)
[2017-11-27] MEDS: COLACE CAP 100 MG PO SCH (21:29)
[2017-11-27] MEDS: MILK OF MAGNESIA PO SCH (21:29)
[2017-11-27] MEDS: KLONOPIN TAB 1 MG PO SCH (21:29)
[2017-11-27] MEDS: SNACK - Diabetic Appropriate PO SCH (21:31)
[2017-11-28] MEDS: XANAX PO PRN (00:11)
[2017-11-28] MEDS: SODIUM BICARBONATE IV SCH ×4 (03:41→07:30)
[2017-11-28] MEDS: NS IV SCH ×4 (03:41→07:30)
[2017-11-28 05:24] LABS: BASOPHILS # (AUTO) 0.1 X10^3/uL (0.0-0.1); BASOPHILS % (AUTO) 0.6 % (0.2-1.0); EOSINOPHILS # (AUTO) 0.1 x10^3/uL (0.0-0.2); EOSINOPHILS % (AUTO) 0.8 % (0.9-2.9); HEMATOCRIT 26.3 % (42.0-54.0); HEMOGLOBIN 9.1 g/dL (13.5-18.0); LYMPHOCYTES # (AUTO) 3.6 X10^3/uL (1.3-2.9); LYMPHOCYTES % (AUTO) 37.9 % (21.0-51.0); MEAN CORPUSCULAR HGB CONC 34.6 g/dL (33.0-35.0); MEAN CORPUSCULAR VOLUME 86.7 fL (80.0-100.0); MEAN PLATELET VOLUME 7.9 fL (7.4-11.0); MONOCYTES % (AUTO) 10.8 % (0.0-13.0); NEUTROPHILS # (AUTO) 4.8 x10^3/uL (2.2-4.8); NEUTROPHILS % (AUTO) 49.9 % (42.0-75.0); PLATELET COUNT 195 X10^3/uL (150.0-450.0); RED BLOOD COUNT 3.03 X10^6/uL (4.7-6.0); RED CELL DISTRIBUTION WIDTH 15.5 % (11.6-16.5); WHITE BLOOD COUNT 9.6 X10^3/uL (3.6-10.0)
[2017-11-28 05:34] LABS: SERUM ACETONE NEGATIVE (NEGATIVE)
[2017-11-28 05:43] LABS: ALANINE AMINOTRANSFERASE 17 Units/L (12-78); ALBUMIN 2.4 g/dL (3.4-5.0); ALKALINE PHOSPHATASE 74 Units/L (46-116); ASPARTATE AMINO TRANSFERASE 11 Units/L (15-37); BLOOD UREA NITROGEN 3 mg/dL (7-18); CARBON DIOXIDE 32.3 mmol/L (21-32); CHLORIDE 107 mmol/L (98-107); COR CA(FOR HYPOALB) 9.3 mg/dL (8.5-10.1); COR NA(FOR HYPERGLY) 146 mmol/L (136-145); CREATININE 0.57 mg/dL (0.70-1.30); MAGNESIUM 1.8 mg/dL (1.7-2.9); SODIUM 143 mmol/L (136-145); TOTAL PROTEIN 5.1 g/dL (6.4-8.2); eGFR NON BLACK RACES > 60 (>60)
[2017-11-28] MEDS: MAGNESIUM SULFATE 1 GRAM/100 mL PREMIX 1 GM/100 ML BAG IV PRN ×2 (06:33→07:36)
[2017-11-28] MEDS ORDERED: NS 100 ML IV + SPIKE MINIBAG* 100 ML IV ONE (07:35)
[2017-11-28] MEDS: ZESTRIL TAB 10 MG PO SCH (08:16)
[2017-11-28] MEDS: MILK OF MAGNESIA PO SCH (08:16)
[2017-11-28] MEDS: VANCOMYCIN HCL 1 GM VIAL 1 G in D5W 250 ML IV 250 ML IV SCH (08:41)
[2017-11-28] MEDS ORDERED: MAXIPIME IV SCH (09:00)
[2017-11-28] MEDS ORDERED: SPIKE MINIBAG IV SCH (09:00)
[2017-11-28] MEDS ORDERED: NS IV SCH (09:00)
[2017-11-28 10:10] VITALS: BP 125/93
--- NOTE | 2017-12-22 03:42 | DR.N/VMALE ---
HPI Time Seen Time seen: 10:45 Primary Care Physician Primary Care Physician: KRYS PALMER Complaints Chief Complaint:: PT TO ER WITH C/O N/V/ ABD PAIN AND WEAKNESS, PT IS PALE HR > 140 BPM PT IS REQUESTING PAIN MEDS FOR HIS ABD PAIN PT STATES THIS HAS BEEN GOING ON FOR A FEW DAYS ,,BR Self Treatment fo Chief Complaint: NONE Source History Provided: Patient Mode of Arrival Mode of Arrival: Stretcher Timing Onset of Chief Complaint: 11/23/17 PMH PMH Past Medical History: Yes Past Medical History: Anxiety, Depression, Diabetes, GERD and Hypertension Past Surgical History: Yes Surgical History: Other Family History History of Family Medical Conditions: Yes Family Medical History: Diabetes Mellitus, Sudden Cardiac and Hypertension Social History Does patient currently use any type of tobacco product: No Have you used tobacco products in the last 12 months: No Type of Tobacco Use: None Does any household member use tobacco: No Alcohol Use: None Do you use any recreational Drugs:: No Lives With: Family Lives Where: Home infectious screening In the last 2 months have you had wt loss of >10#?: NO Have you had fever, night sweats or hemotysis?: No Have you traveled outside the country in the last 6 months?: No Isolation: Standard PE Vital Signs Vitals: Temperature 98.0 F Pulse Rate [Left Brachial] 88 Pulse Rate 144 Respiratory Rate 16 Blood Pressure [Left Arm] 125/93 Blood Pressure [Right Arm] 165/93 Blood Pressure 116/62 O2 Sat by Pulse Oximetry 94 General Limitations: No Limitations General Appearance: Alert and In No Apparent Distress Head Head Exam: Normal Inspection, Atraumatic and Normocephalic Eyes Eye exam: Normal Appearance, PERRL and EOMI ENT ENT Exam: Normal Exam and Normal Oropharynx Neck Neck Exam: Normal Inspection and Full ROM Respiratory Respiratory Exam: Normal Lung Sounds Bilat; negative Chest Wall Tenderness, Prolonged Expiratory Phase and Respiratory Distress Respiratory Exam: Bilateral: Clear to Auscultation Cardiovascular Cardiovascular Exam: Regular Rate and Normal Rhythm Abdominal Exam Abdominal Exam: Normal Inspection and Normal Bowel Sounds Abdominal Tenderness: negative RUQ, RLQ, LUQ, LLQ, Epigastrium and Diffuse Rectal Rectal Exam: Deferred Exam: Male: Deferred Back Back Exam: Normal Inspection and Full ROM ROR Labs Reviewed Result Diagrams: 11/28/17 04:32 11/28/17 04:32 Laboratory: 11/26/17 21:02 Blood Blood Culture - Final 11/26/17 20:45 Blood Blood Culture - Final Micrococcus Species 11/26/17 21:04 Blood Blood Culture - Final Micrococcus Species WBC 9.6 X10^3/uL (3.6-10.0) 11/28/17 04:32 RBC 3.03 X10^6/uL (4.7-6.0) L 11/28/17 04:32 Hgb 9.1 g/dL (13.5-18.0) L D 11/28/17 04:32 Hct 26.3 % (42.0-54.0) L 11/28/17 04:32 MCV 86.7 fL (80.0-100.0) 11/28/17 04:32 MCH 30.0 pg (27.0-34.0) 11/28/17 04:32 MCHC 34.6 g/dL (33.0-35.0) 11/28/17 04:32 RDW 15.5 % (11.6-16.5) 11/28/17 04:32 Plt Count 195 X10^3/uL (150.0-450.0) 11/28/17 04:32 Plt Count Comment Adequate (ADEQUATE) 11/26/17 04:00 MPV 7.9 fL (7.4-11.0) 11/28/17 04:32 Neut % (Auto) 49.9 % (42.0-75.0) 11/28/17 04:32 Lymph % (Auto) 37.9 % (21.0-51.0) 11/28/17 04:32 [place] % (Auto) 10.8 % (0.0-13.0) 11/28/17 04:32 Eos % (Auto) 0.8 % (0.9-2.9) L 11/28/17 04:32 Baso % (Auto) 0.6 % (0.2-1.0) 11/28/17 04:32 Neut # (Auto) 4.8 x10^3/uL (2.2-4.8) 11/28/17 04:32 Lymph # (Auto) 3.6 X10^3/uL (1.3-2.9) H 11/28/17 04:32 [place] # (Auto) 1.0 x10^3/uL (0.3-0.8) H 11/28/17 04:32 Eos # (Auto) 0.1 x10^3/uL (0.0-0.2) 11/28/17 04:32 Baso # (Auto) 0.1 X10^3/uL (0.0-0.1) 11/28/17 04:32 Absolute Nucleated RBC 0.0 /100WBC 11/28/17 04:32 Total Counted 100 11/26/17 04:00 Neutrophils % (Manual) 77 % (39-76) H 11/26/17 04:00 Band Neutrophils % 3 % (0-10) 11/26/17 04:00 Lymphocytes % (Manual) 9 % (13-43) L 11/26/17 04:00 Monocytes % (Manual) 11 % (4-9) H 11/26/17 04:00 Plt Morphology Comment Normal (NORMAL) 11/26/17 04:00 RBC Morphology Normal (NORMAL) 11/26/17 04:00 Sample Site Lbra 11/27/17 06:08 ABG pH 7.480 (7.35-7.45) H 11/27/17 06:08 ABG pCO2 43.0 mmHg (35.0-45.0) 11/27/17 06:08 ABG pO2 85.0 mmHg (80.0-100.0) 11/27/17 06:08 ABG HCO3 32.0 mmol/L (22-26) H* 11/27/17 06:08 ABG O2 Saturation 97.0 % (90-100) 11/27/17 06:08 ABG Base Excess 7.6 mmol/L (-2.0-2.0) H 11/27/17 06:08 Geoff Test Na 11/27/17 06:08 A-a Gradient 11.0 mmHg 11/27/17 06:08 FiO2 21.000 11/27/17 06:08 Blood Gas Comments Marva abg well-mtf 11/27/17 06:08 Sodium 143 mmol/L (136-145) 11/28/17 04:32 Corrected Sodium 146 mmol/L (136-145) H 11/28/17 04:32 Potassium 3.3 mmol/L (3.5-5.1) L 11/28/17 04:32 Chloride 107 mmol/L (98-107) 11/28/17 04:32 Carbon Dioxide 32.3 mmol/L (21-32) H 11/28/17 04:32 BUN 3 mg/dL (7-18) L 11/28/17 04:32 Creatinine 0.57 mg/dL (0.70-1.30) L 11/28/17 04:32 Est GFR (MDRD) Af Amer > 60 (>60) 11/28/17 04:32 Est GFR (MDRD) Non-Af > 60 (>60) 11/28/17 04:32 Glucose 207 mg/dL (65-99) H 11/28/17 04:32 POC Glucose (mg/dL) 183 mg/dL (65-99) H 11/28/17 07:27 Lactic Acid 0.9 mmol/L (0.4-2.0) 11/27/17 04:20 Calcium 8.0 mg/dL (8.5-10.1) L 11/28/17 04:32 Corrected Calcium 9.3 mg/dL (8.5-10.1) 11/28/17 04:32 Magnesium 1.8 mg/dL (1.7-2.9) 11/28/17 04:32 Total Bilirubin 0.30 mg/dL (0.2-1.0) 11/28/17 04:32 AST 11 Units/L (15-37) L 11/28/17 04:32 ALT 17 Units/L (12-78) 11/28/17 04:32 Alkaline Phosphatase 74 Units/L (46-116) 11/28/17 04:32 Creatine Kinase 159 Units/L (39-308) 11/25/17 15:21 CK-MB (CK-2) 2.5 ng/mL (0-4.0) 11/25/17 15:21 CK/CKMB % Calc 1.6 % (<4) 11/25/17 15:21 Troponin I < 0.02 ng/mL (0-1.5) 11/25/17 15:21 Total Protein 5.1 g/dL (6.4-8.2) L 11/28/17 04:32 Albumin 2.4 g/dL (3.4-5.0) L 11/28/17 04:32 Globulin 2.7 g/dL (2.5-4.5) 11/28/17 04:32 Albumin/Globulin Ratio 0.9 Ratio (1.1-2.1) L 11/28/17 04:32 Specimen Type Clean catch urine 11/25/17 19:21 Urine Color Pale yellow (YELLOW) 11/25/17 19:21 Urine Appearance Hazy (CLEAR) 11/25/17 19:21 Urine pH 5.0 (5.0 - 8.0) 11/25/17 19:21 Ur Specific [place] 1.020 (1.000-1.030) 11/25/17 19:21 Urine Protein 1+ (NEGATIVE) 11/25/17 19:21 Urine Glucose (UA) 4+ (NEGATIVE) 11/25/17 19:21 Urine Ketones 4+ (NEGATIVE) 11/25/17 19:21 Urine Occult Blood Negative (NEGATIVE) 11/25/17 19:21 Urine Nitrite Negative (NEGATIVE) 11/25/17 19:21 Urine Bilirubin Negative (NEGATIVE) 11/25/17 19:21 Urine Urobilinogen Normal (NORMAL) 11/25/17 19:21 Ur Leukocyte Esterase Negative (NEGATIVE) 11/25/17 19:21 Urine RBC 0-2 /HPF (NONE SEEN) 11/25/17 19:21 Urine WBC 0-2 /HPF (NONE SEEN) 11/25/17 19:21 Ur Squamous Epith Cells Rare /HPF (NEGATIVE) 11/25/17 19:21 Urine Bacteria Negative /HPF (NEGATIVE) 11/25/17 19:21 Urine Mucus Rare /HPF (NEGATIVE) 11/25/17 19:21 Ur Culture Indicated? No/not indicated 11/25/17 19:21 Vancomycin Trough 5.7 ug/mL (15-20) L 11/26/17 21:02 Acetone, Semi-Quant Negative (NEGATIVE) 11/28/17 04:32 Diagnosis Discharge Problem: DKA (diabetic ketoacidoses) Instructions Instructions: Tips for Eating Away From Home If You Have Diabetes Hypokalemia Diabetes Mellitus and Sick Day Management Type 1 Diabetes Mellitus, Diagnosis, Adult, [id number] Hypertension, [id number] How to Avoid Diabetes Mellitus Problems Blood Glucose Monitoring, Adult Forms: Patient Portal
--- NOTE | 2017-12-26 22:21 | DR.CARTERD ---
- Discharge Summary for: Discharge Summary for Date of:: 11/28/17 - Admission Date Date of Admission: 11/25/17 - Admission Diagnoses Admission Diagnosis: (1) DKA (diabetic ketoacidoses) (2) Hypertension (3) Constipation (4) Thoracic or lumbosacral neuritis or radiculitis (5) GERD (gastroesophageal reflux disease) - Discharge Date Discharge Date: 11/28/17 - Discharge Diagnoses Discharge Diagnosis: (1) DKA (diabetic ketoacidoses) (2) Hypertension (3) Constipation (4) Thoracic or lumbosacral neuritis or radiculitis (5) GERD (gastroesophageal reflux disease) - Hospital Course Hospital Course: Day one, Patient presented to the emergency room via EMS with reports of abdominal pain with nausea and vomiting. Patient reported symptoms started a couple days ago and was just released from the hospital for the same reason 3-4 days prior. On arrival to the hospital patient noted with an elevated heart rate of greater than 140bpm. Labs obtained revealed a critically high white blood cell count of 25.6, a low sodium of 128, elevated potassium of 5.6. Patients glucose noted critically elevated as well at 607 and 700. Patients lactic acid noted elevated at 5.4. Serum acetone collected noted to be large. Patient started on an Insulin drip at 6units/hr and will titrate per protocol. Medical History: Hypertension, Gerd, Pancreatitis, Constipation, Diarrhea, UTIs , Back Pain, UTIs, Back Pain, DM type II, Anxiety, Depression. Abnormal Labs: WBC 25.6, R BC 4.29, Hgb 12.7, Hct 39.9, MCHC 31.8, Sodium 128, 134, Corrected Sodium 148, 147, 148, Potassium 5.6, Chloride 88, 93, Carbon Dioxide 6.6, 7.3, 10.4, 17.9, BUN 20, 23, 20, Creatinine 1.53, 1.79, 1.32, Glucose 607, 700, 352, 352, 222, Lactic Acid 5.4, Calcium 8.0, 8.1, AST 12, 10, Albumin 3.3. Acetone @ 0845 Large, @1521 Moderate. ABG: @0845 pH 7.260, pCO2 12.0, pO2 125.0, HCO3 5.4 , Base Excess -19.0; @1641 pCO2 21.0, pO2 122.0, HCO3 12.1, Base Excess -11.1. Urinalysis: Hazy, Protein 1+, Glucose 4+, Ketones 4+, RBC 0-2, WBC 0-2, Mucus Rare. KUB: No acute or significant findings. Chest X-Ray: No change or acute findings. EKG: Sinus Tachycardia. Iiod=644 Patient admitted to ICU on continuous quality assurance monitor final, NIBP and continuous pulse oximetry. Patient started on Insulin Drip, Maxipime IV, Vancomycin IV, and aggressive IV hydration. Day two and three, patient continued with nausea. Patient continued on Insulin drip, IV antibiotics, and IV fluids. Patient continued with sinus tachycardia. On day four, patient reported he was feeling better and denied nausea or vomiting. Vital signs stable. Labs wnl. White count 9.6. Patient was weaned from Insulin drip and glucose was 207 with AC and HS coverage. Patient tolerating diet well. We planned for discharge. Instructions for medications and follow up were discussed with patient and family, both voiced understanding. Patient discharged home in stable condition with family. - Discharge Medications Discharge Medications: Home Medication List magnesium hydroxide [Milk of Magnesia] 10 ml PO QID PRN #1 bottle 11/28/17 [Rx] promethazine 25 mg PO Q6H PRN #30 tab 11/28/17 [Rx] Prescriptions: magnesium hydroxide [Milk of Magnesia] [place] promethazine Charlie [place] Home medications gabapentin 1 cap PO TID 05/02/15 alprazolam [Xanax] 2 mg PO TID PRN 02/15/16 methadone 20 mg PO Q6H PRN 02/15/16 insulin lispro [Humalog U-100 Insulin] 3 units SUBCUT .WITHMEALS 02/16/16 famotidine 20 mg PO BID #60 tab 02/21/16 clonazepam [Klonopin] 2 mg PO HS 10/24/17 dextroamphetamine-amphetamine [Adderall] 20 mg PO BID 10/24/17 docusate sodium 100 mg PO DAILY #30 cap 10/28/17 polyethylene glycol 3350 [Miralax] 17 g PO DAILY #1 bottle 10/28/17 insulin detemir U-100 [Levemir U-100 Insulin] 25 units SUB-Q BID 11/10/17 lisinopril 1 tab PO HS 11/10/17 - Discharge Disposition Discharge Disposition: Patient is to follow up in our office in one week.
--- NOTE | 2018-01-14 13:42 | PCM.PROG ---
Progress Note - Progress Note for Day of Date of Exam: 11/27/17 - Subjective Subjective: 37 WM ER ADMISSION ONE DAY AGO WITH DKA. PT CONTINUES WITH CO ABDOMINAL PAIN AND NAUSEA. PT CURRENTLY ON IV NAUSEA CONTROL AND IV NARCOTIC PAIN CONTROL, PT CONTINUES WITH SINUS TACHYCARDIA 100-110BPM. PT IMPROVING GLUCOSE LEVELS, CONTINUES WITH INSULTIN DRIP AT 1U. PT WITH VOMITING THIS MORNING. VITALS THIS MORNING ARE 98.0-105-18-97%RA-144/93. LABS WERE OBTAINED. ABNORMAL LAB VALUES INCLUDE THE FOLLOWING: WBC 15.6, RBC 3.75, HGB 11.2, HCT 32.6, POTASSIUM 2.5, BUN 3, GLUCOSE 158, CALCIUM 8.3, MAGNESIUM 1.3, AST 12, TOTAL PROTEIN 6.0, ALBUMIN 2.9. SERUM ACETONES SMALL. TODAY, WE PLAN TO OBTAIN AN ABDOMEN/PELVIS CT WITH CONTRAST. OTHERWISE, WE WILL CONTINUE WITH GENTLE HYDRATION BLOOD SUGAR CONTROL, BP CONTROL, AND BOWEL REGIMEN. WE PLAN TO FOLLOW UP WITH AM LABS AND CONTINUE TO MONITOR PATIENT. - Past Medical Family Social History Past Med/Fam/Surg Hx: No changes since H&P Allergies: Allergies No Known Drug Allergies Allergy (Verified 10/07/17 10:20) - Review of Systems ROS: No change since H&P - Vital Signs and I&O's Vital Signs: Temperature 98.0 F Pulse Rate [Left Brachial] 88 Pulse Rate 144 Respiratory Rate 16 Blood Pressure [Left Arm] 125/93 Blood Pressure [Right Arm] 165/93 Blood Pressure 116/62 O2 Sat by Pulse Oximetry 94 - Physical Exam Oriented: Normal Eyes: Normal Ear: Normal Nose: Normal Throat: Dry Respiratory: Diminished Cardiovascular: Tachycardia : Normal Auscultation: Bowel Sounds: Normal Palpation: Normal Tenderness: RUQ, LUQ, Epigastric Skin: Decreased Turgur Musculoskeletal: Back:Lumbar Psychiatric: Normal Mood Description: Depressed Speech Pattern: Clear, Appropriate - Laboratory and Diagnostics Result Diagrams: 11/28/17 04:32 11/28/17 04:32 Labs: 11/26/17 21:02 Blood Blood Culture - Final 11/26/17 20:45 Blood Blood Culture - Final Micrococcus Species 11/26/17 21:04 Blood Blood Culture - Final Micrococcus Species Laboratory WBC 9.6 X10^3/uL (3.6-10.0) 11/28/17 04:32 RBC 3.03 X10^6/uL (4.7-6.0) L 11/28/17 04:32 Hgb 9.1 g/dL (13.5-18.0) L D 11/28/17 04:32 Hct 26.3 % (42.0-54.0) L 11/28/17 04:32 MCV 86.7 fL (80.0-100.0) 11/28/17 04:32 MCH 30.0 pg (27.0-34.0) 11/28/17 04:32 MCHC 34.6 g/dL (33.0-35.0) 11/28/17 04:32 RDW 15.5 % (11.6-16.5) 11/28/17 04:32 Plt Count 195 X10^3/uL (150.0-450.0) 11/28/17 04:32 Plt Count Comment Adequate (ADEQUATE) 11/26/17 04:00 MPV 7.9 fL (7.4-11.0) 11/28/17 04:32 Neut % (Auto) 49.9 % (42.0-75.0) 11/28/17 04:32 Lymph % (Auto) 37.9 % (21.0-51.0) 11/28/17 04:32 [place] % (Auto) 10.8 % (0.0-13.0) 11/28/17 04:32 Eos % (Auto) 0.8 % (0.9-2.9) L 11/28/17 04:32 Baso % (Auto) 0.6 % (0.2-1.0) 11/28/17 04:32 Neut # (Auto) 4.8 x10^3/uL (2.2-4.8) 11/28/17 04:32 Lymph # (Auto) 3.6 X10^3/uL (1.3-2.9) H 11/28/17 04:32 [place] # (Auto) 1.0 x10^3/uL (0.3-0.8) H 11/28/17 04:32 Eos # (Auto) 0.1 x10^3/uL (0.0-0.2) 11/28/17 04:32 Baso # (Auto) 0.1 X10^3/uL (0.0-0.1) 11/28/17 04:32 Absolute Nucleated RBC 0.0 /100WBC 11/28/17 04:32 Total Counted 100 11/26/17 04:00 Neutrophils % (Manual) 77 % (39-76) H 11/26/17 04:00 Band Neutrophils % 3 % (0-10) 11/26/17 04:00 Lymphocytes % (Manual) 9 % (13-43) L 11/26/17 04:00 Monocytes % (Manual) 11 % (4-9) H 11/26/17 04:00 Plt Morphology Comment Normal (NORMAL) 11/26/17 04:00 RBC Morphology Normal (NORMAL) 11/26/17 04:00 Sample Site Lb 11/27/17 06:08 ABG pH 7.480 (7.35-7.45) H 11/27/17 06:08 ABG pCO2 43.0 mmHg (35.0-45.0) 11/27/17 06:08 ABG pO2 85.0 mmHg (80.0-100.0) 11/27/17 06:08 ABG HCO3 32.0 mmol/L (22-26) H* 11/27/17 06:08 ABG O2 Saturation 97.0 % (90-100) 11/27/17 06:08 ABG Base Excess 7.6 mmol/L (-2.0-2.0) H 11/27/17 06:08 Geoff Test Na 11/27/17 06:08 A-a Gradient 11.0 mmHg 11/27/17 06:08 FiO2 21.000 11/27/17 06:08 Blood Gas Comments Marva abg well-mtf 11/27/17 06:08 Sodium 143 mmol/L (136-145) 11/28/17 04:32 Corrected Sodium 146 mmol/L (136-145) H 11/28/17 04:32 Potassium 3.3 mmol/L (3.5-5.1) L 11/28/17 04:32 Chloride 107 mmol/L (98-107) 11/28/17 04:32 Carbon Dioxide 32.3 mmol/L (21-32) H 11/28/17 04:32 BUN 3 mg/dL (7-18) L 11/28/17 04:32 Creatinine 0.57 mg/dL (0.70-1.30) L 11/28/17 04:32 Est GFR (MDRD) Af Amer > 60 (>60) 11/28/17 04:32 Est GFR (MDRD) Non-Af > 60 (>60) 11/28/17 04:32 Glucose 207 mg/dL (65-99) H 11/28/17 04:32 POC Glucose (mg/dL) 183 mg/dL (65-99) H 11/28/17 07:27 Lactic Acid 0.9 mmol/L (0.4-2.0) 11/27/17 04:20 Calcium 8.0 mg/dL (8.5-10.1) L 11/28/17 04:32 Corrected Calcium 9.3 mg/dL (8.5-10.1) 11/28/17 04:32 Magnesium 1.8 mg/dL (1.7-2.9) 11/28/17 04:32 Total Bilirubin 0.30 mg/dL (0.2-1.0) 11/28/17 04:32 AST 11 Units/L (15-37) L 11/28/17 04:32 ALT 17 Units/L (12-78) 11/28/17 04:32 Alkaline Phosphatase 74 Units/L (46-116) 11/28/17 04:32 Creatine Kinase 159 Units/L (39-308) 11/25/17 15:21 CK-MB (CK-2) 2.5 ng/mL (0-4.0) 11/25/17 15:21 CK/CKMB % Calc 1.6 % (<4) 11/25/17 15:21 Troponin I < 0.02 ng/mL (0-1.5) 11/25/17 15:21 Total Protein 5.1 g/dL (6.4-8.2) L 11/28/17 04:32 Albumin 2.4 g/dL (3.4-5.0) L 11/28/17 04:32 Globulin 2.7 g/dL (2.5-4.5) 11/28/17 04:32 Albumin/Globulin Ratio 0.9 Ratio (1.1-2.1) L 11/28/17 04:32 Specimen Type Clean catch urine 11/25/17 19:21 Urine Color Pale yellow (YELLOW) 11/25/17 19:21 Urine Appearance Hazy (CLEAR) 11/25/17 19:21 Urine pH 5.0 (5.0 - 8.0) 11/25/17 19:21 Ur Specific [place] 1.020 (1.000-1.030) 11/25/17 19:21 Urine Protein 1+ (NEGATIVE) 11/25/17 19:21 Urine Glucose (UA) 4+ (NEGATIVE) 11/25/17 19:21 Urine Ketones 4+ (NEGATIVE) 11/25/17 19:21 Urine Occult Blood Negative (NEGATIVE) 11/25/17 19:21 Urine Nitrite Negative (NEGATIVE) 11/25/17 19:21 Urine Bilirubin Negative (NEGATIVE) 11/25/17 19:21 Urine Urobilinogen Normal (NORMAL) 11/25/17 19:21 Ur Leukocyte Esterase Negative (NEGATIVE) 11/25/17 19:21 Urine RBC 0-2 /HPF (NONE SEEN) 11/25/17 19:21 Urine WBC 0-2 /HPF (NONE SEEN) 11/25/17 19:21 Ur Squamous Epith Cells Rare /HPF (NEGATIVE) 11/25/17 19:21 Urine Bacteria Negative /HPF (NEGATIVE) 11/25/17 19:21 Urine Mucus Rare /HPF (NEGATIVE) 11/25/17 19:21 Ur Culture Indicated? No/not indicated 11/25/17 19:21 Vancomycin Trough 5.7 ug/mL (15-20) L 11/26/17 21:02 Acetone, Semi-Quant Negative (NEGATIVE) 11/28/17 04:32 - Plan (1) DKA (diabetic ketoacidoses) Status: Acute Qualifiers: Plan: ICU- INSULIN DRIP, BS PER PROTOCOL. CONTINUOUS CARDIAC MONITORING. WILL CONTINUE CURRENT PLAN , GENTLE HYDRATION, BLOOD SUGAR CONTROL, REPEAT ABG, BOWEL REGIMEN, REPEAT AM LABS, BP CONTROL. PAIN AND NAUSEA CONTROL (2) Constipation Status: Acute Qualifiers: Constipation type: slow transit constipation Qualified Code(s): K59.01 - Slow transit constipation (3) Hypertension Status: Acute Qualifiers: Hypertension type: essential hypertension Qualified Code(s): I10 - Essential (primary) hypertension
== END 2017-11-28 11:40 | disposition home health service (06) | DRG 639 ==
LOC: ER 08:31 → ICU 15:10
PROVIDERS: ADMIT Internal Medicine; ATTEND Internal Medicine
DX: M54.17 Radiculopathy, lumbosacral region; R11.2 Nausea with vomiting, unspecified; F41.8 Other specified anxiety disorders; R94.31 Abnormal electrocardiogram [ECG] [EKG]; I10 Essential (primary) hypertension; R10.84 Generalized abdominal pain; K21.9 Gastro-esophageal reflux disease without esophagitis; E10.10 Type 1 diabetes mellitus with ketoacidosis without coma; M54.14 Radiculopathy, thoracic region; E87.6 Hypokalemia; K59.01 Slow transit constipation
CPT/HCPCS: 36415; 36600; 71010; 71045; 74000; 74018; 74177; 80048; 80053; 80202; 81001; 82009; 82550; 82553; 82565; 82803; 82947; 83605; 83735; 84132; 84484; 85025; 87040; 93005; 94640; 96365; 96367; 96372; 96374; 96375; 99221; 99231; 99283; 99285; A4222; S0109; J0692; J0696; J1170; J1642; J1815; J2060; J2405; J2550; J3260; J3370; J3475; J3480; J3490; J7030; J7040; J7050; J7060; J7613; J8499

== ENCOUNTER 2018-01-14 00:55 | Inpatient (IN) ==
[2018-01-14] MEDS ORDERED: NS 1000 ML 1,000 ML ONE ×6 (01:09→07:22)
[2018-01-14 01:14] VITALS: BMI 19.2
[2018-01-14] MEDS ORDERED: NS 1000 ML 1,000 ML IV ONE ×4 (01:16→05:59)
[2018-01-14 01:23] LABS: SERUM ACETONE SMALL (NEGATIVE)
[2018-01-14 01:25] LABS: BASOPHILS # (AUTO) 0.2 X10^3/uL (0.0-0.1); BASOPHILS % (AUTO) 0.7 % (0.2-1.0); EOSINOPHILS % (AUTO) 0.1 % (0.9-2.9); HEMATOCRIT 44.4 % (42.0-54.0); HEMOGLOBIN 14.4 g/dL (13.5-18.0); LYMPHOCYTES # (AUTO) 2.9 X10^3/uL (1.3-2.9); LYMPHOCYTES % (AUTO) 13.7 % (21.0-51.0); MEAN CORPUSCULAR HEMOGLOBIN 29.3 pg (27.0-34.0); MEAN CORPUSCULAR HGB CONC 32.4 g/dL (33.0-35.0); MEAN CORPUSCULAR VOLUME 90.5 fL (80.0-100.0); MEAN PLATELET VOLUME 9.5 fL (7.4-11.0); MONOCYTES # (AUTO) 0.5 x10^3/uL (0.3-0.8); MONOCYTES % (AUTO) 2.5 % (0.0-13.0); NEUTROPHILS # (AUTO) 17.4 x10^3/uL (2.2-4.8); PLATELET COUNT 312 X10^3/uL (150.0-450.0); RED CELL DISTRIBUTION WIDTH 14.3 % (11.6-16.5)
[2018-01-14 01:29] LABS: BLOOD UREA NITROGEN 13 mg/dL (7-18); CALCIUM 9.5 mg/dL (8.5-10.1); CHLORIDE 95 mmol/L (98-107); COR NA(FOR HYPERGLY) 144 mmol/L (136-145); CREATININE 1.33 mg/dL (0.70-1.30); SODIUM 135 mmol/L (136-145); eGFR NON BLACK RACES > 60 (>60)
[2018-01-14 01:31] LABS: CARBON DIOXIDE 8.9 mmol/L (21-32)
[2018-01-14 01:33] LABS: ALANINE AMINOTRANSFERASE 15 Units/L (12-78); ALBUMIN 4.3 g/dL (3.4-5.0); ALKALINE PHOSPHATASE 111 Units/L (46-116); ASPARTATE AMINO TRANSFERASE 12 Units/L (15-37); TOTAL PROTEIN 8.4 g/dL (6.4-8.2)
[2018-01-14] MEDS ORDERED: PHENERGAN INJ 25 MG IVP ONE (01:42)
[2018-01-14] MEDS ORDERED: PHENERGAN INJ 25 MG ONE (01:43)
[2018-01-14] MEDS ORDERED: HumuLIN R ONE ×3 (02:55→08:48)
[2018-01-14] MEDS ORDERED: HumuLIN R SUBCUT ONE (03:10)
[2018-01-14] MEDS ORDERED: HumuLIN R IV ONE ×2 (03:12→08:53)
[2018-01-14 03:31] LABS: BILIRUBIN,URINE NEGATIVE (NEGATIVE); BLOOD/HEMOGLOBIN,URINE NEGATIVE (NEGATIVE); GLUCOSE, URINE 4+ (NEGATIVE); KETONES,URINE 4+ (NEGATIVE); LEUKOCYTE ESTERASE ,URINE NEGATIVE (NEGATIVE); NITRITES,URINE NEGATIVE (NEGATIVE); PROTEIN,URINE 2+ (NEGATIVE); UROBILINOGEN,URINE NORMAL (NORMAL)
[2018-01-14 03:33] LABS: APPEARANCE,URINE CLEAR (CLEAR); COLOR,URINE YELLOW (YELLOW)
[2018-01-14 03:34] LABS: BACTERIA,URINE NEGATIVE /HPF (NEGATIVE); RBC,URINE NONE SEEN /HPF (NONE SEEN); SQUAMOUS EPITHELIAL CELL,UR NEGATIVE /HPF (NEGATIVE)
[2018-01-14 03:57] LABS: ABG BASE EXCESS -24.5 mmol/L (-2.0-2.0); ABG HCO3 4.3 mmol/L (22-26); FRACTIONATED INSPIRED OXYGEN 21
[2018-01-14] MEDS ORDERED: TORADOL 30 MG VIAL IVP ONE (04:09)
[2018-01-14] MEDS ORDERED: TORADOL 30 MG VIAL ONE (04:12)
[2018-01-14] MEDS ORDERED: SODIUM BICARBONATE 8.4% INJ ADULT IVP ONE ×2 (04:13→05:58)
[2018-01-14] MEDS ORDERED: SODIUM BICARBONATE 8.4% INJ ADULT ONE ×2 (04:15→05:49)
--- NOTE | 2018-01-14 05:48 | RAD ---
Chest, one view Indication: Nausea and vomiting. DKA. Comparison: 11/26/2017 Findings: The cardiac silhouette is unremarkable. There is stable right subclavian approach Port-A-Ca th. Lungs are clear without focal infiltrates or pleural effusion. Impression: No acute chest process. Reported By:
[2018-01-14 06:06] LABS: ABG BASE EXCESS -21.7 mmol/L (-2.0-2.0)
[2018-01-14 06:07] LABS: ABG HCO3 5.1 mmol/L (22-26); FRACTIONATED INSPIRED OXYGEN 21
--- NOTE | 2018-01-14 07:13 | DR.HYPOGLY ---
HPI Time Seen Time Seen by Provider: 01/14/18 02:50 PCP Primary Care Physician: KRYS Pappas Chief Complaint:: HYPERGYLCEMIC Source History Provided: Patient Mode of Arrival Mode of Arrival: EMS Timing Onset of Chief Complaint: 01/14/18 PMH PMH Past Medical History: Yes Past Medical History: Diabetes Past Surgical History: Yes Surgical History: Other Family History History of Family Medical Conditions: Yes Family Medical History: Diabetes Mellitus, Sudden Cardiac and Hypertension Social History Does patient currently use any type of tobacco product: Yes Have you used tobacco products in the last 12 months: Yes Type of Tobacco Use: Cigarettes Does any household member use tobacco: No Alcohol Use: None Do you use any recreational Drugs:: No Lives With: Alone Lives Where: Home infectious screening In the last 2 months have you had wt loss of >10#?: NO Have you had fever, night sweats or hemotysis?: No Have you traveled outside the country in the last 6 months?: No Isolation: Standard ROS Review of Systems Constitutional: No Symptoms Reported; negative Diaphoresis and Fever Eyes: No Symptoms Reported ENTM: No Symptoms Reported Respiratoy: No Symptoms Reported and Non-Productive Cough Cardiovascular: No Symptoms Reported Gastrointestinal/Abdominal: Abdominal Pain, Nausea and Vomiting Genitourinary: No Symptoms Reported Neurological: Weakness Integumentary: No Symptoms Reported Psychiatric: No Symptoms Reported PE Vital Signs Vitals: Temperature 99.9 F Pulse Rate [Apical] 100 Pulse Rate 131 Respiratory Rate 23 Blood Pressure [Left Arm] 140/87 Blood Pressure [Right Arm] 165/93 Blood Pressure 134/94 O2 Sat by Pulse Oximetry 100 General Limitations: Altered Mental Status and Physical Limitation General Appearance: Alert, In No Apparent Distress and Lethargic Eyes Eye exam: PERRL, EOMI and Scleral Icterus; negative Nystagmus Pupils: Regular, Round: Bilateral Sclera/Conjunctival: Normal Inspection: Bilateral ENT ENT Exam: Normal Exam, Normal External Ear Exam, Mucous Membranes Dry and TM's Normal Bilaterally; negative Normal Oropharynx (dry) Nose Exam: Normal Nose Exam Mouth Exam: negative Trismus Throat Exam: Normal Inspection and Tonsillar Erythema Neck Neck Exam: Normal Inspection and Full ROM Chest Chest Inspection: Normal Inspection and Symmetric Chest Wall Rise Respiratory Respiratory Exam: Normal Lung Sounds Bilat; negative Accessory Muscle Use, Chest Wall Tenderness, Prolonged Expiratory Phase and Respiratory Distress Respiratory Exam: Bilateral: Clear to Auscultation Cardiovascular Cardiovascular Exam: Normal Rhythm and Tachycardia Abdominal Exam Abdominal Exam: Normal Inspection, Normal Bowel Sounds, Soft, Tenderness and Dimnished Bowel Sounds; negative Trauma, Ascites and Bruit Abdominal Tenderness: Diffuse Extremities Extremities Exam: Normal Inspection and Full ROM Back Back Exam: Normal Inspection; negative (R) CVA Tenderness, Muscle Spasm and Vertebral Tenderness Neurologic Neurological Exam: Alert, Oriented X3 and CN II-XII Intact Patient Oriented To: Person, Place and Time Speech: Fluid Speech Cranial Nerve Exam: EOM Function (II, III, IV, ): Normal Psychiatric Psychiatric Exam: Depressed and Flat Affect; negative Suicidal Ideation Skin Skin Exam: Warm, Dry, Intact and Normal Color; negative Rash and Cyanosis COURSE Treatment Treatment: NS, Bicarbonate,analgesics Consultation Called: 07:00 Consultation Comments: Dr. marina agreed to admit for further evaluation and treatment ROR Labs Reviewed Laboratory Results Reviewed?: Yes Result Diagrams: 01/15/18 04:45 01/15/18 08:30 Laboratory: WBC 22.3 X10^3/uL (3.6-10.0) H 01/15/18 04:45 RBC 4.27 X10^6/uL (4.7-6.0) L 01/15/18 04:45 Hgb 12.3 g/dL (13.5-18.0) L D 01/15/18 04:45 Hct 36.6 % (42.0-54.0) L 01/15/18 04:45 MCV 85.7 fL (80.0-100.0) 01/15/18 04:45 MCH 28.9 pg (27.0-34.0) 01/15/18 04:45 MCHC 33.7 g/dL (33.0-35.0) 01/15/18 04:45 RDW 13.9 % (11.6-16.5) 01/15/18 04:45 Plt Count 237 X10^3/uL (150.0-450.0) 01/15/18 04:45 Plt Count Comment Adequate (ADEQUATE) 01/15/18 04:45 MPV 8.8 fL (7.4-11.0) 01/15/18 04:45 Neut % (Auto) 86.3 % (42.0-75.0) H 01/15/18 04:45 Lymph % (Auto) 10.5 % (21.0-51.0) L 01/15/18 04:45 [place] % (Auto) 3.0 % (0.0-13.0) 01/15/18 04:45 Eos % (Auto) 0.0 % (0.9-2.9) L 01/15/18 04:45 Baso % (Auto) 0.2 % (0.2-1.0) 01/15/18 04:45 Neut # (Auto) 19.2 x10^3/uL (2.2-4.8) H 01/15/18 04:45 Lymph # (Auto) 2.4 X10^3/uL (1.3-2.9) 01/15/18 04:45 [place] # (Auto) 0.7 x10^3/uL (0.3-0.8) 01/15/18 04:45 Eos # (Auto) 0.0 x10^3/uL (0.0-0.2) 01/15/18 04:45 Baso # (Auto) 0.0 X10^3/uL (0.0-0.1) 01/15/18 04:45 Absolute Nucleated RBC 0.0 /100WBC 01/15/18 04:45 Total Counted 100 01/15/18 04:45 Neutrophils % (Manual) 87 % (39-76) H 01/15/18 04:45 Lymphocytes % (Manual) 12 % (13-43) L 01/15/18 04:45 Monocytes % (Manual) 1 % (4-9) L 01/15/18 04:45 Plt Morphology Comment Normal (NORMAL) 01/15/18 04:45 RBC Morphology Normal (NORMAL) 01/15/18 04:45 Sample Site Lr 01/15/18 04:20 ABG pH 7.320 (7.35-7.45) L 01/15/18 04:20 ABG pCO2 18.0 mmHg (35.0-45.0) L* 01/15/18 04:20 ABG pO2 113.0 mmHg (80.0-100.0) H 01/15/18 04:20 ABG HCO3 9.3 mmol/L (22-26) L* 01/15/18 04:20 ABG O2 Saturation 98.0 % (90-100) 01/15/18 04:20 ABG Base Excess -14.5 mmol/L (-2.0-2.0) L 01/15/18 04:20 Geoff Test Pos 01/15/18 04:20 A-a Gradient 14.0 mmHg 01/15/18 04:20 FiO2 21 01/15/18 04:20 Blood Gas Comments Marva well ae 01/15/18 04:20 Sodium 140 mmol/L (136-145) 01/15/18 04:45 Corrected Sodium 142 mmol/L (136-145) 01/15/18 04:45 Potassium 2.4 mmol/L (3.5-5.1) L* 01/15/18 08:30 Chloride 105 mmol/L (98-107) 01/15/18 04:45 Carbon Dioxide 13.4 mmol/L (21-32) L* 01/15/18 04:45 BUN 4 mg/dL (7-18) L 01/15/18 04:45 Creatinine 0.98 mg/dL (0.70-1.30) 01/15/18 04:45 Est GFR (MDRD) Af Amer > 60 (>60) 01/15/18 04:45 Est GFR (MDRD) Non-Af > 60 (>60) 01/15/18 04:45 Glucose 176 mg/dL (65-99) H 01/15/18 04:45 POC Glucose (mg/dL) 111 mg/dL (65-99) H 01/15/18 09:37 Hemoglobin A1c 8.8 % 01/14/18 07:24 Lactic Acid 0.9 mmol/L (0.4-2.0) 01/15/18 08:30 Calcium 8.1 mg/dL (8.5-10.1) L 01/15/18 04:45 Corrected Calcium TNP 01/15/18 04:45 Phosphorus 3.6 mg/dL (2.6-4.7) 01/14/18 07:24 Magnesium 1.8 mg/dL (1.7-2.9) 01/15/18 04:45 Total Bilirubin 0.60 mg/dL (0.2-1.0) 01/15/18 04:45 AST 22 Units/L (15-37) 01/15/18 04:45 ALT 19 Units/L (12-78) 01/15/18 04:45 Alkaline Phosphatase 84 Units/L (46-116) 01/15/18 04:45 Total Protein 7.1 g/dL (6.4-8.2) 01/15/18 04:45 Albumin 3.5 g/dL (3.4-5.0) 01/15/18 04:45 Globulin 3.6 g/dL (2.5-4.5) 01/15/18 04:45 Albumin/Globulin Ratio 1.0 Ratio (1.1-2.1) L 01/15/18 04:45 Amylase 30 Units/L (25-115) 01/14/18 07:24 Lipase 91 Units/L (73-393) 01/14/18 07:24 Specimen Type Random urine 01/14/18 03:21 Urine Color Yellow (YELLOW) 01/14/18 03:21 Urine Appearance Clear (CLEAR) 01/14/18 03:21 Urine pH 5.0 (5.0 - 8.0) 01/14/18 03:21 Ur Specific [place] 1.025 (1.000-1.030) 01/14/18 03:21 Urine Protein 2+ (NEGATIVE) 01/14/18 03:21 Urine Glucose (UA) 4+ (NEGATIVE) 01/14/18 03:21 Urine Ketones 4+ (NEGATIVE) 01/14/18 03:21 Urine Occult Blood Negative (NEGATIVE) 01/14/18 03:21 Urine Nitrite Negative (NEGATIVE) 01/14/18 03:21 Urine Bilirubin Negative (NEGATIVE) 01/14/18 03:21 Urine Acetone Large (NEGATIVE) 01/15/18 05:52 Urine Urobilinogen Normal (NORMAL) 01/14/18 03:21 Ur Leukocyte Esterase Negative (NEGATIVE) 01/14/18 03:21 Urine RBC None seen /HPF (NONE SEEN) 01/14/18 03:21 Urine WBC None seen /HPF (NONE SEEN) 01/14/18 03:21 Ur Squamous Epith Cells Negative /HPF (NEGATIVE) 01/14/18 03:21 Urine Bacteria Negative /HPF (NEGATIVE) 01/14/18 03:21 Ur Culture Indicated? No/not indicated 01/14/18 03:21 Gastric Occult Blood Positive (NEGATIVE) A 01/15/18 05:52 Stool pH 2 01/15/18 05:52 Acetone, Semi-Quant Small (NEGATIVE) H 01/14/18 01:03 XRAY XRAY Interpreted by: Radiologist XRAY Findings: Chest: No acute abnormality Diagnosis Discharge Problem: Diabetic ketoacidosis
[2018-01-14] MEDS ORDERED: NS 100 ML IV 100 ML IV ONE (07:35)
[2018-01-14 07:41] LABS: HEMOGLOBIN A1C 8.8 %
[2018-01-14 07:43] LABS: MAGNESIUM 1.5 mg/dL (1.7-2.9); PHOSPHORUS 3.6 mg/dL (2.6-4.7)
[2018-01-14] MEDS: NS 1000 ML 1,000 ML IV SCH ×5 (07:50→23:00)
[2018-01-14] MEDS ORDERED: MAGNESIUM SULFATE 1 GRAM/100 mL PREMIX 1 G/100 ML BAG IV ONE (09:01)
[2018-01-14 09:32] LABS: BLOOD UREA NITROGEN 11 mg/dL (7-18); CALCIUM 8.4 mg/dL (8.5-10.1); CHLORIDE 108 mmol/L (98-107); COR NA(FOR HYPERGLY) 151 mmol/L (136-145); CREATININE 1.34 mg/dL (0.70-1.30); SODIUM 145 mmol/L (136-145); eGFR NON BLACK RACES > 60 (>60)
[2018-01-14] MEDS: HumuLIN R IV PRN ×3 (09:34→11:34)
[2018-01-14] MEDS: DEMEROL INJ IM PRN ×2 (10:58→17:50)
--- NOTE | 2018-01-14 12:22 | RAD ---
HISTORY: Diabetic ketoacidosis. Study: Acute abdominal series. Comparison: Chest radiograph dated 11/26/2017. Findings: There is a right subclavian [id number] with tip projecting over the cavoatrial junction. The trachea is midline. The cardiac silhouette is within normal limits. The lungs are clear without focal consolidation, pleural effusion or pneumothorax. Flat plate and left side up decubitus evaluation of the abdomen demonstrates a nonobstructive bowel g as pattern. There are bilateral pelvic phleboliths. The bony structures are grossly intact. IMPRESSION: 1. No acute cardiopulmonary disease. 2. No evidence for acute abdominal pathology. Reported By:
[2018-01-14 13:19] LABS: BLOOD UREA NITROGEN 9 mg/dL (7-18); CALCIUM 8.8 mg/dL (8.5-10.1); CHLORIDE 112 mmol/L (98-107); COR NA(FOR HYPERGLY) 149 mmol/L (136-145); CREATININE 1.27 mg/dL (0.70-1.30); SODIUM 147 mmol/L (136-145); eGFR NON BLACK RACES > 60 (>60)
[2018-01-14 13:40] LABS: CARBON DIOXIDE 12.1 mmol/L (21-32)
[2018-01-14] MEDS: COLACE CAP 100 MG PO SCH ×2 (14:43→23:21)
[2018-01-14 17:06] LABS: BLOOD UREA NITROGEN 8 mg/dL (7-18); CALCIUM 8.8 mg/dL (8.5-10.1); CARBON DIOXIDE 16.4 mmol/L (21-32); CHLORIDE 112 mmol/L (98-107); CREATININE 1.14 mg/dL (0.70-1.30); SODIUM 146 mmol/L (136-145); eGFR NON BLACK RACES > 60 (>60)
[2018-01-14] MEDS ORDERED: K-RIDER 10 MEQ/NS 100 ML 10 MEQ/100 ML BAG IV PRN (19:56)
[2018-01-14] MEDS ORDERED: POTASSIUM CHLORIDE LIQ 20 MEQ UDC PO PRN (19:56)
[2018-01-14] MEDS ORDERED: K-LYTE EFFERVESCENT PO PRN (19:56)
[2018-01-14] MEDS ORDERED: POTASSIUM CHL 40 MEQ/NS 0.45% 500 ML IV PRN (19:56)
[2018-01-14] MEDS ORDERED: SNACK - Diabetic Appropriate PO SCH ×2 (20:00)
[2018-01-14] MEDS ORDERED: COLACE CAP 100 MG PO SCH (21:00)
[2018-01-14] MEDS: SNACK - Diabetic Appropriate PO SCH (21:00)
[2018-01-14 22:08] LABS: BLOOD UREA NITROGEN 6 mg/dL (7-18); CALCIUM 8.4 mg/dL (8.5-10.1); CARBON DIOXIDE 20.6 mmol/L (21-32); CHLORIDE 109 mmol/L (98-107); CREATININE 1.13 mg/dL (0.70-1.30); SODIUM 146 mmol/L (136-145); eGFR NON BLACK RACES > 60 (>60)
[2018-01-14] MEDS: MAGNESIUM SULFATE 1 GRAM/100 mL PREMIX 1 GM/100 ML BAG IV PRN ×2 (22:30→23:30)
[2018-01-14] MEDS: POTASSIUM CHL 60 MEQ/NS 0.45% 500 ML IV PRN (22:30)
[2018-01-14] MEDS: TOUJEO SOLOSTAR PEN SC SCH (22:30)
[2018-01-15] MEDS: PHENERGAN INJ 25 MG IM PRN ×2 (00:32→07:21)
[2018-01-15] MEDS: HumuLIN R IV PRN ×7 (01:00→13:26)
[2018-01-15] MEDS: NS 1000 ML 1,000 ML IV SCH ×3 (02:26→09:08)
[2018-01-15 04:35] LABS: ABG ALLEN TEST POS; ABG BASE EXCESS -14.5 mmol/L (-2.0-2.0); ABG HCO3 9.3 mmol/L (22-26); FRACTIONATED INSPIRED OXYGEN 21
[2018-01-15 05:28] LABS: BASOPHILS % (AUTO) 0.2 % (0.2-1.0); HEMATOCRIT 36.6 % (42.0-54.0); HEMOGLOBIN 12.3 g/dL (13.5-18.0); LYMPHOCYTES # (AUTO) 2.4 X10^3/uL (1.3-2.9); LYMPHOCYTES % (AUTO) 10.5 % (21.0-51.0); MEAN CORPUSCULAR HEMOGLOBIN 28.9 pg (27.0-34.0); MEAN CORPUSCULAR HGB CONC 33.7 g/dL (33.0-35.0); MEAN CORPUSCULAR VOLUME 85.7 fL (80.0-100.0); MEAN PLATELET VOLUME 8.8 fL (7.4-11.0); MONOCYTES # (AUTO) 0.7 x10^3/uL (0.3-0.8); NEUTROPHILS # (AUTO) 19.2 x10^3/uL (2.2-4.8); NEUTROPHILS % (AUTO) 86.3 % (42.0-75.0); PLATELET COUNT 237 X10^3/uL (150.0-450.0); RED BLOOD COUNT 4.27 X10^6/uL (4.7-6.0); RED CELL DISTRIBUTION WIDTH 13.9 % (11.6-16.5); WHITE BLOOD COUNT 22.3 X10^3/uL (3.6-10.0)
[2018-01-15 05:40] LABS: ALANINE AMINOTRANSFERASE 19 Units/L (12-78); ALBUMIN 3.5 g/dL (3.4-5.0); ALKALINE PHOSPHATASE 84 Units/L (46-116); ASPARTATE AMINO TRANSFERASE 22 Units/L (15-37); BLOOD UREA NITROGEN 4 mg/dL (7-18); CALCIUM 8.1 mg/dL (8.5-10.1); CHLORIDE 105 mmol/L (98-107); COR NA(FOR HYPERGLY) 142 mmol/L (136-145); CREATININE 0.98 mg/dL (0.70-1.30); MAGNESIUM 1.8 mg/dL (1.7-2.9); SODIUM 140 mmol/L (136-145); TOTAL PROTEIN 7.1 g/dL (6.4-8.2); eGFR NON BLACK RACES > 60 (>60)
[2018-01-15 05:44] LABS: CARBON DIOXIDE 13.4 mmol/L (21-32)
[2018-01-15 05:53] LABS: PLATELET MORPHOLOGY COMMENT NORMAL (NORMAL)
[2018-01-15 06:15] LABS: GASTRIC OCCULT BLOOD POSITIVE (NEGATIVE); PH 2
[2018-01-15] MEDS: MAGNESIUM SULFATE 1 GRAM/100 mL PREMIX 1 GM/100 ML BAG IV PRN ×3 (06:31→22:04)
[2018-01-15] MEDS: DEMEROL INJ IM PRN ×2 (07:22)
[2018-01-15] MEDS: POTASSIUM CHL 60 MEQ/NS 0.45% 500 ML IV PRN ×2 (09:26→21:17)
[2018-01-15] MEDS: MILK OF MAGNESIA PO SCH (09:34)
[2018-01-15] MEDS: ZESTRIL TAB 10 MG PO SCH (09:34)
[2018-01-15] MEDS: COLACE CAP 100 MG PO SCH ×2 (09:34→20:02)
[2018-01-15] MEDS: LINZESS PO SCH (09:34)
[2018-01-15] MEDS: VASOTEC INJ 2.5 MG VIAL IVP PRN ×3 (10:08→20:19)
[2018-01-15] MEDS ORDERED: PATIENT'S HOME MEDICATION (Alprazolam [Alprazolam] 1 TAB) PO SCH (10:15)
--- NOTE | 2018-01-15 10:25 | PCM.PROG ---
Progress Note - Progress Note for Day of Date of Exam: 01/15/18 - Subjective Subjective: WAS ADMITTED FOR DKA AND METABOLIC ACIDOSIS. TODAY, HE IS ALERT AND ORIENTED, LYING IN BED ON MORNING ROUNDS. HE IS NOTED WITH COMPLAINTS OF NAUSEA, VOMITING, AND ABDOMINAL PAIN. HE ALSO REPORTS WEAKNESS. STAFF REPORTS THAT HIS BLOOD PRESSURE HAS BEEN ELEVATED, BUT HE HAS BEEN UNABLE TO HOLD HIS MEDICATIONS DOWN. ON EXAMINATION, HE IS TACHYCARDIC WITH HR 100- 115BPM. BILATERAL LUNGS ARE NOTED WITH DIMINISHED LUNG SOUNDS THROUGHOUT. ABDOMEN IS FLAT, SOFT, AND NOTED WITH DIFFUSE TENDERNESS. HYPERACTIVE BOWEL SOUNDS NOTED IN ALL QUADRANTS. HIS VITALS THIS MORNING ARE 99.1-710-74-100%-139/ 88. LABS WERE OBTAINED. ABNORMAL LAB VALUES INCLUDE THE FOLLOWING: WBC 22.3, RBC 4.27, HGB 12.3, HCT 36.6, POTASSIUM 2.6, CARBON DIOXIDE 13.4, BUN 4, GLUCOSE 176, CALCIUM 8.1, URINE ACTONES LARGE. ABG REVEALED PH 7.320, PC02 18, P02 113.0, HC03 9.3, BASE EXCESS -14.5. GASTRIC OCCULT BLOOD POSITIVE. TODAY, WE WILL START PEPCID AND PROTONIX IV. WE WILL ADD AN AMP OF BICARB TO EACH LITER OF IV FLUIDS AND START VASOTEC IV PRN FOR HYPERTENSION. OTHERWISE, WE PLAN TO FOLLOW UP WITH AM LABS AND ABG AND CONTINUE TO MONITOR PATIENT. - Past Medical Family Social History Past Med/Fam/Surg Hx: No changes since H&P Allergies: Allergies No Known Drug Allergies Allergy (Verified 10/07/17 10:20) - Review of Systems ROS: No change since H&P - Vital Signs and I&O's Vital Signs: Temperature 99.9 F Pulse Rate [Apical] 100 Pulse Rate 131 Respiratory Rate 23 Blood Pressure [Left Arm] 140/87 Blood Pressure [Right Arm] 165/93 Blood Pressure 134/94 O2 Sat by Pulse Oximetry 100 Intake and Output: Intake & Output 01/12/18 01/13/18 01/14/18 01/15/18 11:59 11:59 11:59 11:59 Intake Total 0 / 0 9460 / 9460 Output Total 1210 / 1210 4375 / 4375 Balance -1210 / -1210 5085 / 5085 - Physical Exam Oriented: Normal Eyes: Normal Ear: Normal Nose: Normal Throat: Normal Respiratory: Diminished Cardiovascular: Tachycardia : Normal Auscultation: Bowel Sounds: Increased Palpation: Normal Tenderness: Diffuse, Moderate. negative: Rebound, Guarding Skin: Normal Musculoskeletal: Normal Psychiatric: Normal Mood Description: Calm Affect: Normal Speech Pattern: Appropriate, Delayed - Laboratory and Diagnostics Result Diagrams: 01/15/18 04:45 01/15/18 08:30 Labs: Laboratory WBC 22.3 X10^3/uL (3.6-10.0) H 01/15/18 04:45 RBC 4.27 X10^6/uL (4.7-6.0) L 01/15/18 04:45 Hgb 12.3 g/dL (13.5-18.0) L D 01/15/18 04:45 Hct 36.6 % (42.0-54.0) L 01/15/18 04:45 MCV 85.7 fL (80.0-100.0) 01/15/18 04:45 MCH 28.9 pg (27.0-34.0) 01/15/18 04:45 MCHC 33.7 g/dL (33.0-35.0) 01/15/18 04:45 RDW 13.9 % (11.6-16.5) 01/15/18 04:45 Plt Count 237 X10^3/uL (150.0-450.0) 01/15/18 04:45 Plt Count Comment Adequate (ADEQUATE) 01/15/18 04:45 MPV 8.8 fL (7.4-11.0) 01/15/18 04:45 Neut % (Auto) 86.3 % (42.0-75.0) H 01/15/18 04:45 Lymph % (Auto) 10.5 % (21.0-51.0) L 01/15/18 04:45 [place] % (Auto) 3.0 % (0.0-13.0) 01/15/18 04:45 Eos % (Auto) 0.0 % (0.9-2.9) L 01/15/18 04:45 Baso % (Auto) 0.2 % (0.2-1.0) 01/15/18 04:45 Neut # (Auto) 19.2 x10^3/uL (2.2-4.8) H 01/15/18 04:45 Lymph # (Auto) 2.4 X10^3/uL (1.3-2.9) 01/15/18 04:45 [place] # (Auto) 0.7 x10^3/uL (0.3-0.8) 01/15/18 04:45 Eos # (Auto) 0.0 x10^3/uL (0.0-0.2) 01/15/18 04:45 Baso # (Auto) 0.0 X10^3/uL (0.0-0.1) 01/15/18 04:45 Absolute Nucleated RBC 0.0 /100WBC 01/15/18 04:45 Total Counted 100 01/15/18 04:45 Neutrophils % (Manual) 87 % (39-76) H 01/15/18 04:45 Lymphocytes % (Manual) 12 % (13-43) L 01/15/18 04:45 Monocytes % (Manual) 1 % (4-9) L 01/15/18 04:45 Plt Morphology Comment Normal (NORMAL) 01/15/18 04:45 RBC Morphology Normal (NORMAL) 01/15/18 04:45 Sample Site Lr 01/15/18 04:20 ABG pH 7.320 (7.35-7.45) L 01/15/18 04:20 ABG pCO2 18.0 mmHg (35.0-45.0) L* 01/15/18 04:20 ABG pO2 113.0 mmHg (80.0-100.0) H 01/15/18 04:20 ABG HCO3 9.3 mmol/L (22-26) L* 01/15/18 04:20 ABG O2 Saturation 98.0 % (90-100) 01/15/18 04:20 ABG Base Excess -14.5 mmol/L (-2.0-2.0) L 01/15/18 04:20 Geoff Test Pos 01/15/18 04:20 A-a Gradient 14.0 mmHg 01/15/18 04:20 FiO2 21 01/15/18 04:20 Blood Gas Comments Marva well ae 01/15/18 04:20 Sodium 140 mmol/L (136-145) 01/15/18 04:45 Corrected Sodium 142 mmol/L (136-145) 01/15/18 04:45 Potassium 2.4 mmol/L (3.5-5.1) L* 01/15/18 08:30 Chloride 105 mmol/L (98-107) 01/15/18 04:45 Carbon Dioxide 13.4 mmol/L (21-32) L* 01/15/18 04:45 BUN 4 mg/dL (7-18) L 01/15/18 04:45 Creatinine 0.98 mg/dL (0.70-1.30) 01/15/18 04:45 Est GFR (MDRD) Af Amer > 60 (>60) 01/15/18 04:45 Est GFR (MDRD) Non-Af > 60 (>60) 01/15/18 04:45 Glucose 176 mg/dL (65-99) H 01/15/18 04:45 POC Glucose (mg/dL) 111 mg/dL (65-99) H 01/15/18 09:37 Hemoglobin A1c 8.8 % 01/14/18 07:24 Lactic Acid 0.9 mmol/L (0.4-2.0) 01/15/18 08:30 Calcium 8.1 mg/dL (8.5-10.1) L 01/15/18 04:45 Corrected Calcium TNP 01/15/18 04:45 Phosphorus 3.6 mg/dL (2.6-4.7) 01/14/18 07:24 Magnesium 1.8 mg/dL (1.7-2.9) 01/15/18 04:45 Total Bilirubin 0.60 mg/dL (0.2-1.0) 01/15/18 04:45 AST 22 Units/L (15-37) 01/15/18 04:45 ALT 19 Units/L (12-78) 01/15/18 04:45 Alkaline Phosphatase 84 Units/L (46-116) 01/15/18 04:45 Total Protein 7.1 g/dL (6.4-8.2) 01/15/18 04:45 Albumin 3.5 g/dL (3.4-5.0) 01/15/18 04:45 Globulin 3.6 g/dL (2.5-4.5) 01/15/18 04:45 Albumin/Globulin Ratio 1.0 Ratio (1.1-2.1) L 01/15/18 04:45 Amylase 30 Units/L (25-115) 01/14/18 07:24 Lipase 91 Units/L (73-393) 01/14/18 07:24 Specimen Type Random urine 01/14/18 03:21 Urine Color Yellow (YELLOW) 01/14/18 03:21 Urine Appearance Clear (CLEAR) 01/14/18 03:21 Urine pH 5.0 (5.0 - 8.0) 01/14/18 03:21 Ur Specific [place] 1.025 (1.000-1.030) 01/14/18 03:21 Urine Protein 2+ (NEGATIVE) 01/14/18 03:21 Urine Glucose (UA) 4+ (NEGATIVE) 01/14/18 03:21 Urine Ketones 4+ (NEGATIVE) 01/14/18 03:21 Urine Occult Blood Negative (NEGATIVE) 01/14/18 03:21 Urine Nitrite Negative (NEGATIVE) 01/14/18 03:21 Urine Bilirubin Negative (NEGATIVE) 01/14/18 03:21 Urine Acetone Large (NEGATIVE) 01/15/18 05:52 Urine Urobilinogen Normal (NORMAL) 01/14/18 03:21 Ur Leukocyte Esterase Negative (NEGATIVE) 01/14/18 03:21 Urine RBC None seen /HPF (NONE SEEN) 01/14/18 03:21 Urine WBC None seen /HPF (NONE SEEN) 01/14/18 03:21 Ur Squamous Epith Cells Negative /HPF (NEGATIVE) 01/14/18 03:21 Urine Bacteria Negative /HPF (NEGATIVE) 01/14/18 03:21 Ur Culture Indicated? No/not indicated 01/14/18 03:21 Gastric Occult Blood Positive (NEGATIVE) A 01/15/18 05:52 Stool pH 2 01/15/18 05:52 Acetone, Semi-Quant Small (NEGATIVE) H 01/14/18 01:03 - Plan (1) DKA (diabetic ketoacidoses) Status: Acute Qualifiers: Diabetes mellitus type: type 2 Diabetes mellitus complication detail: without coma Qualified Code(s): E11.10 - Type 2 diabetes mellitus with ketoacidosis without coma Plan: INSULIN DRIP, NORMAL SALINE WITH 1 AMP BICARB IN EACH LITER IVF, CONTINUE TO MONITOR
[2018-01-15] MEDS: XANAX PO SCH ×2 (11:53→20:10)
[2018-01-15] MEDS: PROTONIX INJ 40 MG VIAL IVP SCH ×2 (12:02→20:02)
[2018-01-15] MEDS: PEPCID 20 MG IV PREMIX* 20 MG/50 ML BAG IV SCH ×2 (12:02→20:02)
[2018-01-15] MEDS: NS 1000 ML 1,000 ML with SODIUM BICARBONATE 8.4% INJ ADULT 50 ML IV SCH ×4 (12:02→17:57)
[2018-01-15] MEDS: DEMEROL INJ IVP PRN ×2 (13:45→19:42)
[2018-01-15] MEDS ORDERED: CATAPRES-TTS-1 TD SCH (15:00)
[2018-01-15] MEDS: SNACK - Diabetic Appropriate PO SCH (19:41)
[2018-01-15] MEDS: PHENERGAN INJ 25 MG IVP PRN (19:42)
[2018-01-15] MEDS: TOUJEO SOLOSTAR PEN SC SCH ×2 (20:02→22:36)
[2018-01-16] MEDS: NS 1000 ML 1,000 ML with SODIUM BICARBONATE 8.4% INJ ADULT 50 ML IV SCH ×6 (00:43→05:36)
[2018-01-16] MEDS: DEMEROL INJ IVP PRN ×4 (01:19→20:20)
[2018-01-16] MEDS: PHENERGAN INJ 25 MG IVP PRN ×4 (01:20→20:19)
[2018-01-16] MEDS: VASOTEC INJ 2.5 MG VIAL IVP PRN ×4 (01:44→20:44)
[2018-01-16 05:08] LABS: BASOPHILS # (AUTO) 0.1 X10^3/uL (0.0-0.1); BASOPHILS % (AUTO) 0.4 % (0.2-1.0); HEMATOCRIT 37.2 % (42.0-54.0); LYMPHOCYTES # (AUTO) 2.3 X10^3/uL (1.3-2.9); LYMPHOCYTES % (AUTO) 13.4 % (21.0-51.0); MEAN CORPUSCULAR HEMOGLOBIN 29.1 pg (27.0-34.0); MEAN CORPUSCULAR HGB CONC 34.9 g/dL (33.0-35.0); MEAN CORPUSCULAR VOLUME 83.5 fL (80.0-100.0); MEAN PLATELET VOLUME 8.7 fL (7.4-11.0); MONOCYTES # (AUTO) 0.9 x10^3/uL (0.3-0.8); MONOCYTES % (AUTO) 5.1 % (0.0-13.0); NEUTROPHILS # (AUTO) 14.3 x10^3/uL (2.2-4.8); NEUTROPHILS % (AUTO) 81.1 % (42.0-75.0); PLATELET COUNT 238 X10^3/uL (150.0-450.0); RED BLOOD COUNT 4.45 X10^6/uL (4.7-6.0); WHITE BLOOD COUNT 17.6 X10^3/uL (3.6-10.0)
[2018-01-16 05:25] LABS: ALANINE AMINOTRANSFERASE 18 Units/L (12-78); ALBUMIN 3.5 g/dL (3.4-5.0); ALKALINE PHOSPHATASE 86 Units/L (46-116); ASPARTATE AMINO TRANSFERASE 25 Units/L (15-37); BLOOD UREA NITROGEN 2 mg/dL (7-18); CALCIUM 8.2 mg/dL (8.5-10.1); CARBON DIOXIDE 18.2 mmol/L (21-32); CHLORIDE 101 mmol/L (98-107); COR NA(FOR HYPERGLY) 141 mmol/L (136-145); CREATININE 0.85 mg/dL (0.70-1.30); SODIUM 139 mmol/L (136-145); TOTAL PROTEIN 6.9 g/dL (6.4-8.2); eGFR NON BLACK RACES > 60 (>60)
[2018-01-16 05:37] LABS: ABG BASE EXCESS -2.8 mmol/L (-2.0-2.0)
[2018-01-16 05:38] LABS: ABG ALLEN TEST pos; ABG HCO3 19.4 mmol/L (22-26); FRACTIONATED INSPIRED OXYGEN 21
[2018-01-16] MEDS: POTASSIUM CHL 60 MEQ/NS 0.45% 500 ML IV PRN (05:55)
[2018-01-16] MEDS: COLACE CAP 100 MG PO SCH ×2 (08:02→20:18)
[2018-01-16] MEDS: KLONOPIN TAB 1 MG PO SCH (08:02)
[2018-01-16] MEDS: XANAX PO SCH ×2 (08:03→20:18)
[2018-01-16] MEDS: PROTONIX INJ 40 MG VIAL IVP SCH ×2 (08:03→20:19)
[2018-01-16] MEDS: PEPCID 20 MG IV PREMIX* 20 MG/50 ML BAG IV SCH ×2 (08:03→20:19)
[2018-01-16] MEDS: LINZESS PO SCH (08:03)
[2018-01-16] MEDS: MILK OF MAGNESIA PO SCH (10:07)
[2018-01-16] MEDS: NS IV SCH ×9 (11:24→20:18)
[2018-01-16] MEDS: SODIUM BICARBONATE IV SCH ×9 (11:24→20:18)
[2018-01-16] MEDS: [UNRECOGNIZED DRUG - OTHER] IV SCH ×9 (11:24→20:18)
[2018-01-16] MEDS ORDERED: PROCARDIA XL PO SCH (12:00)
[2018-01-16] MEDS ORDERED: NS 100 ML IV 100 ML IV ONE (15:13)
[2018-01-16] MEDS ORDERED: CARDIZEM INJ 125 MG VIAL ONE (15:14)
[2018-01-16] MEDS ORDERED: CARDIZEM INJ 50 MG VIAL IVP ONE (15:19)
[2018-01-16] MEDS: CARDIZEM INJ 125 MG VIAL 125 MG in NS 100 ML IV 100 ML IV PRN ×2 (15:25→17:31)
[2018-01-16] MEDS: SNACK - Diabetic Appropriate PO SCH (20:17)
[2018-01-16] MEDS: TOUJEO SOLOSTAR PEN SC SCH (22:36)
[2018-01-17] MEDS: CARDIZEM INJ 125 MG VIAL 125 MG in NS 100 ML IV 100 ML IV PRN ×2 (00:31→18:05)
[2018-01-17] MEDS: PHENERGAN INJ 25 MG IVP PRN ×4 (02:02→20:14)
[2018-01-17] MEDS: DEMEROL INJ IVP PRN ×4 (02:02→20:13)
[2018-01-17] MEDS: NS IV SCH ×15 (03:33→23:48)
[2018-01-17] MEDS: SODIUM BICARBONATE IV SCH ×15 (03:33→23:48)
[2018-01-17] MEDS: [UNRECOGNIZED DRUG - OTHER] IV SCH ×15 (03:33→23:48)
[2018-01-17 05:24] LABS: BASOPHILS # (AUTO) 0.1 X10^3/uL (0.0-0.1); BASOPHILS % (AUTO) 0.6 % (0.2-1.0); EOSINOPHILS % (AUTO) 0.1 % (0.9-2.9); HEMATOCRIT 38.8 % (42.0-54.0); HEMOGLOBIN 13.7 g/dL (13.5-18.0); LYMPHOCYTES # (AUTO) 4.1 X10^3/uL (1.3-2.9); LYMPHOCYTES % (AUTO) 28.7 % (21.0-51.0); MEAN CORPUSCULAR HEMOGLOBIN 29.1 pg (27.0-34.0); MEAN CORPUSCULAR HGB CONC 35.3 g/dL (33.0-35.0); MEAN CORPUSCULAR VOLUME 82.4 fL (80.0-100.0); MEAN PLATELET VOLUME 8.8 fL (7.4-11.0); NEUTROPHILS # (AUTO) 9.2 x10^3/uL (2.2-4.8); NEUTROPHILS % (AUTO) 63.6 % (42.0-75.0); PLATELET COUNT 235 X10^3/uL (150.0-450.0); RED BLOOD COUNT 4.71 X10^6/uL (4.7-6.0); WHITE BLOOD COUNT 14.4 X10^3/uL (3.6-10.0)
[2018-01-17 05:40] LABS: ALANINE AMINOTRANSFERASE 17 Units/L (12-78); ALBUMIN 3.5 g/dL (3.4-5.0); ALKALINE PHOSPHATASE 90 Units/L (46-116); ASPARTATE AMINO TRANSFERASE 18 Units/L (15-37); BLOOD UREA NITROGEN 3 mg/dL (7-18); CALCIUM 8.3 mg/dL (8.5-10.1); CARBON DIOXIDE 29.1 mmol/L (21-32); CHLORIDE 102 mmol/L (98-107); COR NA(FOR HYPERGLY) 144 mmol/L (136-145); CREATININE 0.71 mg/dL (0.70-1.30); SODIUM 143 mmol/L (136-145); TOTAL PROTEIN 6.9 g/dL (6.4-8.2); eGFR NON BLACK RACES > 60 (>60)
--- NOTE | 2018-01-17 08:29 | PCM.PROG ---
Progress Note - Progress Note for Day of Date of Exam: 01/16/18 - Subjective Subjective: WAS ADMITTED FOR DKA AND METABOLIC ACIDOSIS. TODAY, HE IS ALERT AND ORIENTED, LYING IN BED ON MORNING ROUNDS. HE CONTINUES WITH COMPLAINTS OF WEAKNESS, NAUSEA, AND ABDOMINAL PAIN, BUT DENIES VOMITING. STAFF REPORTS THAT HIS BLOOD PRESSURE HAS REMAINED ELEVATED DESPITE CHANGES TO MEDICATIONS YESTERDAY. ON EXAMINATION, HE IS TACHYCARDIC WITH HR 110-120M. BILATERAL LUNGS ARE NOTED WITH DIMINISHED LUNG SOUNDS THROUGHOUT. ABDOMEN IS FLAT, SOFT, AND NOTED WITH DIFFUSE TENDERNESS. HYPERACTIVE BOWEL SOUNDS NOTED IN ALL QUADRANTS. HIS VITALS THIS MORNING ARE 98.8-120-24-95%-168/112. LABS WERE OBTAINED. ABNORMAL LAB VALUES INCLUDE THE FOLLOWING: WBC DECREASED TO 17.6 , RBC 4.45, HGB 13.0, HCT 37.2, POTASSIUM 2.6, BUN 3, GLUCOSE 137, CALCIUM 8.3. ABG REVEALED PH 7.480, PC02 26.0, P02 97, HC03 19.4, BASE EXCESS -2.8. TODAY, WE WILL INCREASE THE VASOTEC TO 2.50MG IV Q6H PRN HTN. OTHERWISE, WE PLAN TO FOLLOW UP WITH AM LABS AND ABG AND CONTINUE TO MONITOR PATIENT. - Past Medical Family Social History Past Med/Fam/Surg Hx: No changes since H&P Allergies: Allergies No Known Drug Allergies Allergy (Verified 10/07/17 10:20) - Review of Systems ROS: No change since H&P - Vital Signs and I&O's Vital Signs: Temperature 97.8 F Pulse Rate [Apical] 117 Pulse Rate 126 Respiratory Rate 24 Blood Pressure [Left Arm] 142/99 Blood Pressure [Right Arm] 165/93 Blood Pressure 146/103 O2 Sat by Pulse Oximetry 100 Intake and Output: Intake & Output 01/14/18 01/15/18 01/16/18 01/17/18 11:59 11:59 11:59 11:59 Intake Total 0 / 0 9460 / 9460 5315 / 5315 3349 / 3349 Output Total 1210 / 1210 4375 / 4375 6800 / 6800 6200 / 6200 Balance -1210 / -1210 5085 / 5085 -1485 / -1485 -2851 / -2851 - Physical Exam Oriented: Normal Eyes: Normal Ear: Normal Nose: Normal Throat: Normal Respiratory: Diminished Cardiovascular: Tachycardia : Normal Auscultation: Bowel Sounds: Increased Palpation: Normal Tenderness: Diffuse, Moderate. negative: Rebound, Guarding Skin: Normal Musculoskeletal: Normal Psychiatric: Normal Mood Description: Calm Affect: Normal Speech Pattern: Appropriate - Laboratory and Diagnostics Result Diagrams: 01/17/18 04:12 01/17/18 04:12 Labs: Laboratory WBC 14.4 X10^3/uL (3.6-10.0) H 01/17/18 04:12 RBC 4.71 X10^6/uL (4.7-6.0) 01/17/18 04:12 Hgb 13.7 g/dL (13.5-18.0) 01/17/18 04:12 Hct 38.8 % (42.0-54.0) L 01/17/18 04:12 MCV 82.4 fL (80.0-100.0) 01/17/18 04:12 MCH 29.1 pg (27.0-34.0) 01/17/18 04:12 MCHC 35.3 g/dL (33.0-35.0) H 01/17/18 04:12 RDW 14.0 % (11.6-16.5) 01/17/18 04:12 Plt Count 235 X10^3/uL (150.0-450.0) 01/17/18 04:12 Plt Count Comment Adequate (ADEQUATE) 01/15/18 04:45 MPV 8.8 fL (7.4-11.0) 01/17/18 04:12 Neut % (Auto) 63.6 % (42.0-75.0) 01/17/18 04:12 Lymph % (Auto) 28.7 % (21.0-51.0) 01/17/18 04:12 [place] % (Auto) 7.0 % (0.0-13.0) 01/17/18 04:12 Eos % (Auto) 0.1 % (0.9-2.9) L 01/17/18 04:12 Baso % (Auto) 0.6 % (0.2-1.0) 01/17/18 04:12 Neut # (Auto) 9.2 x10^3/uL (2.2-4.8) H 01/17/18 04:12 Lymph # (Auto) 4.1 X10^3/uL (1.3-2.9) H 01/17/18 04:12 [place] # (Auto) 1.0 x10^3/uL (0.3-0.8) H 01/17/18 04:12 Eos # (Auto) 0.0 x10^3/uL (0.0-0.2) 01/17/18 04:12 Baso # (Auto) 0.1 X10^3/uL (0.0-0.1) 01/17/18 04:12 Absolute Nucleated RBC 0.2 /100WBC 01/17/18 04:12 Total Counted 100 01/15/18 04:45 Neutrophils % (Manual) 87 % (39-76) H 01/15/18 04:45 Lymphocytes % (Manual) 12 % (13-43) L 01/15/18 04:45 Monocytes % (Manual) 1 % (4-9) L 01/15/18 04:45 Plt Morphology Comment Normal (NORMAL) 01/15/18 04:45 RBC Morphology Normal (NORMAL) 01/15/18 04:45 Sample Site rrad 01/16/18 05:26 ABG pH 7.480 (7.35-7.45) H 01/16/18 05:26 ABG pCO2 26.0 mmHg (35.0-45.0) L 01/16/18 05:26 ABG pO2 97.0 mmHg (80.0-100.0) 01/16/18 05:26 ABG HCO3 19.4 mmol/L (22-26) L 01/16/18 05:26 ABG O2 Saturation 98.0 % (90-100) 01/16/18 05:26 ABG Base Excess -2.8 mmol/L (-2.0-2.0) L 01/16/18 05:26 Geoff Test pos 01/16/18 05:26 A-a Gradient 20.0 mmHg 01/16/18 05:26 FiO2 21 01/16/18 05:26 Blood Gas Comments reece abg well-mtf 01/16/18 05:26 Sodium 143 mmol/L (136-145) 01/17/18 04:12 Corrected Sodium 144 mmol/L (136-145) 01/17/18 04:12 Potassium 2.6 mmol/L (3.5-5.1) L* 01/17/18 04:12 Chloride 102 mmol/L (98-107) 01/17/18 04:12 Carbon Dioxide 29.1 mmol/L (21-32) 01/17/18 04:12 BUN 3 mg/dL (7-18) L 01/17/18 04:12 Creatinine 0.71 mg/dL (0.70-1.30) 01/17/18 04:12 Est GFR (MDRD) Af Amer > 60 (>60) 01/17/18 04:12 Est GFR (MDRD) Non-Af > 60 (>60) 01/17/18 04:12 Glucose 137 mg/dL (65-99) H 01/17/18 04:12 POC Glucose (mg/dL) 159 mg/dL (65-99) H 01/17/18 07:49 Hemoglobin A1c 8.8 % 01/14/18 07:24 Insulin Level 20 uIU/mL 01/14/18 01:03 Lactic Acid 0.9 mmol/L (0.4-2.0) 01/15/18 08:30 Calcium 8.3 mg/dL (8.5-10.1) L 01/17/18 04:12 Corrected Calcium TNP 01/17/18 04:12 Phosphorus 3.6 mg/dL (2.6-4.7) 01/14/18 07:24 Magnesium 2.0 mg/dL (1.7-2.9) 01/16/18 04:06 Total Bilirubin 0.90 mg/dL (0.2-1.0) 01/17/18 04:12 AST 18 Units/L (15-37) 01/17/18 04:12 ALT 17 Units/L (12-78) 01/17/18 04:12 Alkaline Phosphatase 90 Units/L (46-116) 01/17/18 04:12 Total Protein 6.9 g/dL (6.4-8.2) 01/17/18 04:12 Albumin 3.5 g/dL (3.4-5.0) 01/17/18 04:12 Globulin 3.4 g/dL (2.5-4.5) 01/17/18 04:12 Albumin/Globulin Ratio 1.0 Ratio (1.1-2.1) L 01/17/18 04:12 Amylase 30 Units/L (25-115) 01/14/18 07:24 Lipase 91 Units/L (73-393) 01/14/18 07:24 Specimen Type Random urine 01/14/18 03:21 Urine Color Yellow (YELLOW) 01/14/18 03:21 Urine Appearance Clear (CLEAR) 01/14/18 03:21 Urine pH 5.0 (5.0 - 8.0) 01/14/18 03:21 Ur Specific [place] 1.025 (1.000-1.030) 01/14/18 03:21 Urine Protein 2+ (NEGATIVE) 01/14/18 03:21 Urine Glucose (UA) 4+ (NEGATIVE) 01/14/18 03:21 Urine Ketones 4+ (NEGATIVE) 01/14/18 03:21 Urine Occult Blood Negative (NEGATIVE) 01/14/18 03:21 Urine Nitrite Negative (NEGATIVE) 01/14/18 03:21 Urine Bilirubin Negative (NEGATIVE) 01/14/18 03:21 Urine Acetone Large (NEGATIVE) 01/15/18 05:52 Urine Urobilinogen Normal (NORMAL) 01/14/18 03:21 Ur Leukocyte Esterase Negative (NEGATIVE) 01/14/18 03:21 Urine RBC None seen /HPF (NONE SEEN) 01/14/18 03:21 Urine WBC None seen /HPF (NONE SEEN) 01/14/18 03:21 Ur Squamous Epith Cells Negative /HPF (NEGATIVE) 01/14/18 03:21 Urine Bacteria Negative /HPF (NEGATIVE) 01/14/18 03:21 Ur Culture Indicated? No/not indicated 01/14/18 03:21 Gastric Occult Blood Positive (NEGATIVE) A 01/15/18 05:52 Stool pH 2 01/15/18 05:52 Acetone, Semi-Quant Small (NEGATIVE) H 01/14/18 01:03 - Plan (1) DKA (diabetic ketoacidoses) Status: Acute Qualifiers: Diabetes mellitus type: type 2 Diabetes mellitus complication detail: without coma Qualified Code(s): E11.10 - Type 2 diabetes mellitus with ketoacidosis without coma Plan: INSULIN DRIP, NORMAL SALINE WITH 1 AMP BICARB IN EACH LITER IVF, CONTINUE TO MONITOR (2) Hypertension Status: Acute Qualifiers: Hypertension type: essential hypertension Qualified Code(s): I10 - Essential (primary) hypertension Plan: CONTINUE HOME MEDICATIONS, VASOTEC 2.50MG IV Q6H PRN, CATAPRES PATCH, CONTINUE TO MONITOR
[2018-01-17] MEDS: PEPCID 20 MG IV PREMIX* 20 MG/50 ML BAG IV SCH ×2 (08:35→20:13)
[2018-01-17] MEDS: PROTONIX INJ 40 MG VIAL IVP SCH ×2 (08:35→20:13)
[2018-01-17] MEDS: COLACE CAP 100 MG PO SCH ×2 (08:35→20:13)
[2018-01-17] MEDS: KLONOPIN TAB 1 MG PO SCH (08:36)
[2018-01-17] MEDS: LINZESS PO SCH (08:36)
[2018-01-17] MEDS: ZESTRIL TAB 10 MG PO SCH (08:37)
[2018-01-17] MEDS: MILK OF MAGNESIA PO SCH (09:14)
[2018-01-17] MEDS: XANAX PO SCH ×2 (09:14→20:13)
--- NOTE | 2018-01-17 19:18 | PCM.PROG ---
Progress Note - Progress Note for Day of Date of Exam: 01/17/18 - Subjective Subjective: WAS ADMITTED FOR DKA AND METABOLIC ACIDOSIS. TODAY, HE IS ALERT AND ORIENTED, LYING IN BED ON MORNING ROUNDS. HE CONTINUES WITH COMPLAINTS OF WEAKNESS, NAUSEA, AND ABDOMINAL PAIN, BUT DENIES VOMITING. HE WAS GIVEN ONE DOSE OF PROCARDIA YESTERDAY AND STARTED ON A CARDIZEM DRIP DUE TO ELEVATED HEART RATE AND HYPERTENSION. ON EXAMINATION, HE IS TACHYCARDIC WITH HR IN THE 120S. BILATERAL LUNGS ARE NOTED WITH DIMINISHED LUNG SOUNDS THROUGHOUT. ABDOMEN IS FLAT, SOFT, AND NOTED WITH MILD, DIFFUSE TENDERNESS. HYPERACTIVE BOWEL SOUNDS NOTED IN ALL QUADRANTS. HIS VITALS THIS MORNING ARE 98.9-786-17-100%-140/96. LABS WERE OBTAINED. ABNORMAL LAB VALUES INCLUDE THE FOLLOWING: WBC 14.4, HCT 38.8, POTASSIUM 2.6, BUN 3, GLUCOSE 137, CALCIUM 8.3. TODAY, WE WILL CONTINUE WITH CARDIZEM DRIP AND HYPERTENSIVE MEDICATIONS. OTHERWISE, WE PLAN TO FOLLOW UP WITH AM LABS AND ABG AND CONTINUE TO MONITOR PATIENT. - Past Medical Family Social History Past Med/Fam/Surg Hx: No changes since H&P Allergies: Allergies No Known Drug Allergies Allergy (Verified 10/07/17 10:20) - Review of Systems ROS: No change since H&P - Vital Signs and I&O's Vital Signs: Temperature 99.0 F Pulse Rate [Apical] 120 Pulse Rate 123 Respiratory Rate 24 Blood Pressure [Left Arm] 142/95 Blood Pressure [Right Arm] 165/93 Blood Pressure 133/87 O2 Sat by Pulse Oximetry 100 Intake and Output: Intake & Output 01/15/18 01/16/18 01/17/18 01/18/18 11:59 11:59 11:59 11:59 Intake Total 9460 / 9460 5315 / 5315 3367 / 3367 2083.0 / 2083.0 Output Total 4375 / 4375 6800 / 6800 6200 / 6200 1100 / 1100 Balance 5085 / 5085 -1485 / -1485 -2833 / -2833 983.0 / 983.0 - Physical Exam Oriented: Normal Eyes: Normal Ear: Normal Nose: Normal Throat: Normal Respiratory: Diminished Cardiovascular: Tachycardia : Normal Auscultation: Bowel Sounds: Increased Palpation: Normal Tenderness: Diffuse, Moderate. negative: Rebound, Guarding Skin: Normal Musculoskeletal: Normal Psychiatric: Normal Mood Description: Calm Affect: Normal Speech Pattern: Appropriate - Laboratory and Diagnostics Result Diagrams: 01/17/18 04:12 01/17/18 04:12 Labs: Laboratory WBC 14.4 X10^3/uL (3.6-10.0) H 01/17/18 04:12 RBC 4.71 X10^6/uL (4.7-6.0) 01/17/18 04:12 Hgb 13.7 g/dL (13.5-18.0) 01/17/18 04:12 Hct 38.8 % (42.0-54.0) L 01/17/18 04:12 MCV 82.4 fL (80.0-100.0) 01/17/18 04:12 MCH 29.1 pg (27.0-34.0) 01/17/18 04:12 MCHC 35.3 g/dL (33.0-35.0) H 01/17/18 04:12 RDW 14.0 % (11.6-16.5) 01/17/18 04:12 Plt Count 235 X10^3/uL (150.0-450.0) 01/17/18 04:12 Plt Count Comment Adequate (ADEQUATE) 01/15/18 04:45 MPV 8.8 fL (7.4-11.0) 01/17/18 04:12 Neut % (Auto) 63.6 % (42.0-75.0) 01/17/18 04:12 Lymph % (Auto) 28.7 % (21.0-51.0) 01/17/18 04:12 [place] % (Auto) 7.0 % (0.0-13.0) 01/17/18 04:12 Eos % (Auto) 0.1 % (0.9-2.9) L 01/17/18 04:12 Baso % (Auto) 0.6 % (0.2-1.0) 01/17/18 04:12 Neut # (Auto) 9.2 x10^3/uL (2.2-4.8) H 01/17/18 04:12 Lymph # (Auto) 4.1 X10^3/uL (1.3-2.9) H 01/17/18 04:12 [place] # (Auto) 1.0 x10^3/uL (0.3-0.8) H 01/17/18 04:12 Eos # (Auto) 0.0 x10^3/uL (0.0-0.2) 01/17/18 04:12 Baso # (Auto) 0.1 X10^3/uL (0.0-0.1) 01/17/18 04:12 Absolute Nucleated RBC 0.2 /100WBC 01/17/18 04:12 Total Counted 100 01/15/18 04:45 Neutrophils % (Manual) 87 % (39-76) H 01/15/18 04:45 Lymphocytes % (Manual) 12 % (13-43) L 01/15/18 04:45 Monocytes % (Manual) 1 % (4-9) L 01/15/18 04:45 Plt Morphology Comment Normal (NORMAL) 01/15/18 04:45 RBC Morphology Normal (NORMAL) 01/15/18 04:45 Sample Site rrad 01/16/18 05:26 ABG pH 7.480 (7.35-7.45) H 01/16/18 05:26 ABG pCO2 26.0 mmHg (35.0-45.0) L 01/16/18 05:26 ABG pO2 97.0 mmHg (80.0-100.0) 01/16/18 05:26 ABG HCO3 19.4 mmol/L (22-26) L 01/16/18 05:26 ABG O2 Saturation 98.0 % (90-100) 01/16/18 05:26 ABG Base Excess -2.8 mmol/L (-2.0-2.0) L 01/16/18 05:26 Geoff Test pos 01/16/18 05:26 A-a Gradient 20.0 mmHg 01/16/18 05:26 FiO2 21 01/16/18 05:26 Blood Gas Comments reece abg well-mtf 01/16/18 05:26 Sodium 143 mmol/L (136-145) 01/17/18 04:12 Corrected Sodium 144 mmol/L (136-145) 01/17/18 04:12 Potassium 2.6 mmol/L (3.5-5.1) L* 01/17/18 04:12 Chloride 102 mmol/L (98-107) 01/17/18 04:12 Carbon Dioxide 29.1 mmol/L (21-32) 01/17/18 04:12 BUN 3 mg/dL (7-18) L 01/17/18 04:12 Creatinine 0.71 mg/dL (0.70-1.30) 01/17/18 04:12 Est GFR (MDRD) Af Amer > 60 (>60) 01/17/18 04:12 Est GFR (MDRD) Non-Af > 60 (>60) 01/17/18 04:12 Glucose 137 mg/dL (65-99) H 01/17/18 04:12 POC Glucose (mg/dL) 111 mg/dL (65-99) H 01/17/18 13:35 Hemoglobin A1c 8.8 % 01/14/18 07:24 Insulin Level 20 uIU/mL 01/14/18 01:03 Lactic Acid 0.9 mmol/L (0.4-2.0) 01/15/18 08:30 Calcium 8.3 mg/dL (8.5-10.1) L 01/17/18 04:12 Corrected Calcium TNP 01/17/18 04:12 Phosphorus 3.6 mg/dL (2.6-4.7) 01/14/18 07:24 Magnesium 2.0 mg/dL (1.7-2.9) 01/16/18 04:06 Total Bilirubin 0.90 mg/dL (0.2-1.0) 01/17/18 04:12 AST 18 Units/L (15-37) 01/17/18 04:12 ALT 17 Units/L (12-78) 01/17/18 04:12 Alkaline Phosphatase 90 Units/L (46-116) 01/17/18 04:12 Total Protein 6.9 g/dL (6.4-8.2) 01/17/18 04:12 Albumin 3.5 g/dL (3.4-5.0) 01/17/18 04:12 Globulin 3.4 g/dL (2.5-4.5) 01/17/18 04:12 Albumin/Globulin Ratio 1.0 Ratio (1.1-2.1) L 01/17/18 04:12 Amylase 30 Units/L (25-115) 01/14/18 07:24 Lipase 91 Units/L (73-393) 01/14/18 07:24 Specimen Type Random urine 01/14/18 03:21 Urine Color Yellow (YELLOW) 01/14/18 03:21 Urine Appearance Clear (CLEAR) 01/14/18 03:21 Urine pH 5.0 (5.0 - 8.0) 01/14/18 03:21 Ur Specific [place] 1.025 (1.000-1.030) 01/14/18 03:21 Urine Protein 2+ (NEGATIVE) 01/14/18 03:21 Urine Glucose (UA) 4+ (NEGATIVE) 01/14/18 03:21 Urine Ketones 4+ (NEGATIVE) 01/14/18 03:21 Urine Occult Blood Negative (NEGATIVE) 01/14/18 03:21 Urine Nitrite Negative (NEGATIVE) 01/14/18 03:21 Urine Bilirubin Negative (NEGATIVE) 01/14/18 03:21 Urine Acetone Large (NEGATIVE) 01/17/18 09:41 Urine Urobilinogen Normal (NORMAL) 01/14/18 03:21 Ur Leukocyte Esterase Negative (NEGATIVE) 01/14/18 03:21 Urine RBC None seen /HPF (NONE SEEN) 01/14/18 03:21 Urine WBC None seen /HPF (NONE SEEN) 01/14/18 03:21 Ur Squamous Epith Cells Negative /HPF (NEGATIVE) 01/14/18 03:21 Urine Bacteria Negative /HPF (NEGATIVE) 01/14/18 03:21 Ur Culture Indicated? No/not indicated 01/14/18 03:21 Gastric Occult Blood Positive (NEGATIVE) A 01/15/18 05:52 Stool pH 2 01/15/18 05:52 Acetone, Semi-Quant Small (NEGATIVE) H 01/14/18 01:03 - Plan (1) DKA (diabetic ketoacidoses) Status: Acute Qualifiers: Diabetes mellitus type: type 2 Diabetes mellitus complication detail: without coma Qualified Code(s): E11.10 - Type 2 diabetes mellitus with ketoacidosis without coma Plan: INSULIN DRIP, NORMAL SALINE WITH 1 AMP BICARB IN EACH LITER IVF, CONTINUE TO MONITOR (2) Hypertension Status: Acute Qualifiers: Hypertension type: essential hypertension Qualified Code(s): I10 - Essential (primary) hypertension Plan: CONTINUE HOME MEDICATIONS, VASOTEC 2.50MG IV Q6H PRN, CATAPRES PATCH, CONTINUE TO MONITOR (3) Tachycardia Status: Acute Plan: CARDIZEM DRIP, CONTINUE TO MONITOR
[2018-01-17] MEDS: SNACK - Diabetic Appropriate PO SCH (20:14)
[2018-01-17] MEDS: TOUJEO SOLOSTAR PEN SC SCH (21:11)
[2018-01-18] MEDS: NS IV SCH ×12 (03:04→22:04)
[2018-01-18] MEDS: SODIUM BICARBONATE IV SCH ×12 (03:04→22:04)
[2018-01-18] MEDS: [UNRECOGNIZED DRUG - OTHER] IV SCH ×12 (03:04→22:04)
[2018-01-18] MEDS: CARDIZEM INJ 125 MG VIAL 125 MG in NS 100 ML IV 100 ML IV PRN ×2 (03:46→13:22)
[2018-01-18 05:13] LABS: BASOPHILS # (AUTO) 0.1 X10^3/uL (0.0-0.1); BASOPHILS % (AUTO) 0.8 % (0.2-1.0); EOSINOPHILS % (AUTO) 0.4 % (0.9-2.9); HEMATOCRIT 37.4 % (42.0-54.0); HEMOGLOBIN 12.9 g/dL (13.5-18.0); LYMPHOCYTES # (AUTO) 3.3 X10^3/uL (1.3-2.9); LYMPHOCYTES % (AUTO) 37.6 % (21.0-51.0); MEAN CORPUSCULAR HEMOGLOBIN 28.7 pg (27.0-34.0); MEAN CORPUSCULAR HGB CONC 34.4 g/dL (33.0-35.0); MEAN CORPUSCULAR VOLUME 83.5 fL (80.0-100.0); MEAN PLATELET VOLUME 8.9 fL (7.4-11.0); MONOCYTES # (AUTO) 0.6 x10^3/uL (0.3-0.8); MONOCYTES % (AUTO) 7.3 % (0.0-13.0); NEUTROPHILS # (AUTO) 4.8 x10^3/uL (2.2-4.8); NEUTROPHILS % (AUTO) 53.9 % (42.0-75.0); PLATELET COUNT 230 X10^3/uL (150.0-450.0); RED BLOOD COUNT 4.48 X10^6/uL (4.7-6.0); RED CELL DISTRIBUTION WIDTH 13.9 % (11.6-16.5); WHITE BLOOD COUNT 8.8 X10^3/uL (3.6-10.0)
[2018-01-18 05:18] LABS: ABG BASE EXCESS 7.3 mmol/L (-2.0-2.0); ABG HCO3 28.8 mmol/L (22-26); FRACTIONATED INSPIRED OXYGEN 21
[2018-01-18 05:31] LABS: ALBUMIN 3.2 g/dL (3.4-5.0); ALKALINE PHOSPHATASE 82 Units/L (46-116); ASPARTATE AMINO TRANSFERASE 13 Units/L (15-37); BLOOD UREA NITROGEN 3 mg/dL (7-18); CALCIUM 8.3 mg/dL (8.5-10.1); CARBON DIOXIDE 27.7 mmol/L (21-32); CHLORIDE 100 mmol/L (98-107); COR CA(FOR HYPOALB) 8.9 mg/dL (8.5-10.1); COR NA(FOR HYPERGLY) 141 mmol/L (136-145); CREATININE 0.58 mg/dL (0.70-1.30); SODIUM 139 mmol/L (136-145); TOTAL PROTEIN 6.3 g/dL (6.4-8.2); eGFR NON BLACK RACES > 60 (>60)
[2018-01-18 05:41] LABS: ALANINE AMINOTRANSFERASE 16 Units/L (12-78)
[2018-01-18] MEDS: DEMEROL INJ IVP PRN ×5 (06:42→20:09)
[2018-01-18] MEDS: PHENERGAN INJ 25 MG IVP PRN ×4 (06:43→20:10)
[2018-01-18] MEDS: PEPCID 20 MG IV PREMIX* 20 MG/50 ML BAG IV SCH ×2 (09:18→20:10)
[2018-01-18] MEDS: PROTONIX INJ 40 MG VIAL IVP SCH ×2 (09:19→20:10)
[2018-01-18] MEDS: XANAX PO SCH ×2 (09:19→20:10)
[2018-01-18] MEDS: KLONOPIN TAB 1 MG PO SCH (09:19)
[2018-01-18] MEDS: LINZESS PO SCH (09:19)
[2018-01-18] MEDS: MILK OF MAGNESIA PO SCH (09:20)
[2018-01-18] MEDS: ZESTRIL TAB 10 MG PO SCH (09:20)
[2018-01-18] MEDS: COLACE CAP 100 MG PO SCH ×2 (09:32→20:10)
[2018-01-18] MEDS ORDERED: LANOXIN INJ IVP ONE (10:16)
[2018-01-18] MEDS ORDERED: NS 1000 ML 1,000 ML ONE (10:41)
[2018-01-18] MEDS ORDERED: LANOXIN INJ IVP SCH (11:00)
[2018-01-18] MEDS: PROCARDIA XL PO SCH (11:01)
[2018-01-18] MEDS: VASOTEC INJ 2.5 MG VIAL IVP PRN (13:23)
[2018-01-18] MEDS ORDERED: CATAPRES-TTS-2 TD SCH (16:00)
[2018-01-18] MEDS: CHECK PATCH XX SCH (20:18)
[2018-01-18] MEDS: SNACK - Diabetic Appropriate PO SCH (20:18)
[2018-01-18] MEDS: TOUJEO SOLOSTAR PEN SC SCH (20:19)
[2018-01-19] MEDS: SODIUM BICARBONATE IV SCH ×6 (00:13→02:37)
[2018-01-19] MEDS: [UNRECOGNIZED DRUG - OTHER] IV SCH ×6 (00:13→02:37)
[2018-01-19] MEDS: NS IV SCH ×6 (00:13→02:37)
[2018-01-19] MEDS: PHENERGAN INJ 25 MG IVP PRN ×6 (00:14→20:56)
[2018-01-19] MEDS: DEMEROL INJ IVP PRN ×6 (00:14→20:56)
[2018-01-19] MEDS: MAGNESIUM SULFATE 1 GRAM/100 mL PREMIX 1 GM/100 ML BAG IV PRN ×2 (00:59→02:00)
[2018-01-19] MEDS: CARDIZEM INJ 125 MG VIAL 125 MG in NS 100 ML IV 100 ML IV PRN (01:59)
[2018-01-19 04:55] LABS: ABG BASE EXCESS 7.1 mmol/L (-2.0-2.0)
[2018-01-19 04:56] LABS: ABG HCO3 31.3 mmol/L (22-26)
[2018-01-19 04:57] LABS: ABG ALLEN TEST POS; FRACTIONATED INSPIRED OXYGEN 21
[2018-01-19 05:06] LABS: BASOPHILS % (AUTO) 0.4 % (0.2-1.0); EOSINOPHILS # (AUTO) 0.8 x10^3/uL (0.0-0.2); EOSINOPHILS % (AUTO) 6.4 % (0.9-2.9); HEMATOCRIT 37.3 % (42.0-54.0); HEMOGLOBIN 12.9 g/dL (13.5-18.0); LYMPHOCYTES # (AUTO) 4.9 X10^3/uL (1.3-2.9); LYMPHOCYTES % (AUTO) 40.1 % (21.0-51.0); MEAN CORPUSCULAR HEMOGLOBIN 29.2 pg (27.0-34.0); MEAN CORPUSCULAR HGB CONC 34.7 g/dL (33.0-35.0); MEAN CORPUSCULAR VOLUME 84.2 fL (80.0-100.0); MEAN PLATELET VOLUME 9.2 fL (7.4-11.0); MONOCYTES # (AUTO) 0.8 x10^3/uL (0.3-0.8); MONOCYTES % (AUTO) 6.4 % (0.0-13.0); NEUTROPHILS # (AUTO) 5.7 x10^3/uL (2.2-4.8); NEUTROPHILS % (AUTO) 46.7 % (42.0-75.0); PLATELET COUNT 246 X10^3/uL (150.0-450.0); RED BLOOD COUNT 4.42 X10^6/uL (4.7-6.0); RED CELL DISTRIBUTION WIDTH 14.1 % (11.6-16.5); WHITE BLOOD COUNT 12.1 X10^3/uL (3.6-10.0)
[2018-01-19 05:28] LABS: ALANINE AMINOTRANSFERASE 16 Units/L (12-78); ALBUMIN 3.2 g/dL (3.4-5.0); ALKALINE PHOSPHATASE 82 Units/L (46-116); ASPARTATE AMINO TRANSFERASE 11 Units/L (15-37); BLOOD UREA NITROGEN 3 mg/dL (7-18); CALCIUM 8.6 mg/dL (8.5-10.1); CARBON DIOXIDE 29.1 mmol/L (21-32); CHLORIDE 103 mmol/L (98-107); COR CA(FOR HYPOALB) 9.2 mg/dL (8.5-10.1); COR NA(FOR HYPERGLY) 142 mmol/L (136-145); CREATININE 0.58 mg/dL (0.70-1.30); SODIUM 141 mmol/L (136-145); TOTAL PROTEIN 6.4 g/dL (6.4-8.2); eGFR NON BLACK RACES > 60 (>60)
[2018-01-19] MEDS: ZESTRIL TAB 10 MG PO SCH (08:58)
[2018-01-19] MEDS: PROTONIX INJ 40 MG VIAL IVP SCH ×2 (08:58→20:51)
[2018-01-19] MEDS: PEPCID 20 MG IV PREMIX* 20 MG/50 ML BAG IV SCH ×2 (08:58→20:53)
[2018-01-19] MEDS: COLACE CAP 100 MG PO SCH ×2 (08:59→20:52)
[2018-01-19] MEDS: XANAX PO SCH ×2 (08:59→20:51)
[2018-01-19] MEDS: LINZESS PO SCH (08:59)
[2018-01-19] MEDS: MILK OF MAGNESIA PO SCH ×2 (09:00→20:57)
[2018-01-19] MEDS: CHECK PATCH XX SCH ×2 (09:01→20:52)
[2018-01-19] MEDS: PROCARDIA XL PO SCH ×2 (09:25→12:08)
[2018-01-19] MEDS: KLONOPIN TAB 1 MG PO SCH (09:26)
[2018-01-19] MEDS: NS 1000 ML 1,000 ML IV SCH ×4 (11:34→23:09)
[2018-01-19] MEDS ORDERED: PROCARDIA XL PO NR (12:00)
[2018-01-19] MEDS: ZESTRIL TAB 20 MG PO SCH ×2 (12:08→20:52)
[2018-01-19] MEDS ORDERED: ZESTRIL TAB 10 MG ONE (12:13)
[2018-01-19] MEDS ORDERED: ZESTRIL TAB 20 MG ONE (20:48)
[2018-01-19] MEDS: SNACK - Diabetic Appropriate PO SCH (20:52)
[2018-01-19] MEDS: TOUJEO SOLOSTAR PEN SC SCH (20:53)
--- NOTE | 2018-01-19 23:49 | PCM.PROG ---
Progress Note - Progress Note for Day of Date of Exam: 01/18/18 - Subjective Subjective: WAS ADMITTED FOR DKA AND METABOLIC ACIDOSIS. TODAY, HE IS ALERT AND ORIENTED, LYING IN BED ON MORNING ROUNDS. HE CONTINUES WITH COMPLAINTS OF WEAKNESS, ABDOMINAL PAIN, AND NAUSEA. HE CONTINUES WITH TACHYCARDIA. HE REMAINS ON A CARDIZEM DRIP AT 5MG/HR AND AN INSULIN DRIP AT 1MG/ HR. ON EXAMINATION, HE IS TACHYCARDIC WITH HR 110-115 BEATS/MIN. BILATERAL LUNGS ARE NOTED WITH DIMINISHED LUNG SOUNDS THROUGHOUT. ABDOMEN IS FLAT, SOFT, AND NOTED WITH MILD, DIFFUSE TENDERNESS. HYPERACTIVE BOWEL SOUNDS NOTED IN ALL QUADRANTS. HIS VITALS THIS MORNING ARE 98.1-114-17-99%-132/92. LABS WERE OBTAINED. ABNORMAL LAB VALUES INCLUDE THE FOLLOWING: RBC 4.48, HGB 12.9, HCT 37.4, BUN 3, CREATININE 0.58, GLUCOSE 178, CALCIUM 8.3, MAGNESIUM 1.5, AST 13, TOTAL PROTEIN 6.3, ALBUMIN 3.2. ABG REVEALED: PH 7.590, PC02 30.0, P02 124.0, HC03 28.8, 02 SATURATION 99.0. URINE ACETONES LARGE. TODAY, WE WILL ADMINISTER ONE DOSE OF DIGOXIN 0.5 MG IV X 1 DOSE AND START PROCARDIA XL 60MG PO DAILY. OTHERWISE, WE WILL CONTINUE WITH CARDIZEM DRIP AND HYPERTENSIVE MEDICATIONS. WE PLAN TO FOLLOW UP WITH AM LABS AND ABG AND CONTINUE TO MONITOR PATIENT. - Past Medical Family Social History Past Med/Fam/Surg Hx: No changes since H&P Allergies: Allergies No Known Drug Allergies Allergy (Verified 10/07/17 10:20) - Review of Systems ROS: No change since H&P - Vital Signs and I&O's Vital Signs: Temperature 97.8 F Pulse Rate [Apical] 119 Pulse Rate 112 Respiratory Rate 20 Blood Pressure [Left Arm] 120/80 Blood Pressure [Right Arm] 120/80 Blood Pressure 135/96 O2 Sat by Pulse Oximetry 100 Intake and Output: Intake & Output 01/17/18 01/18/18 01/19/18 01/20/18 11:59 11:59 11:59 11:59 Intake Total 3367 / 3367 7609.0 / 7609.0 7013 / 7013 3853 / 3853 Output Total 6200 / 6200 5900 / 5900 7000 / 7000 3150 / 3150 Balance -2833 / -2833 1709.0 / 1709.0 703 / 703 - Physical Exam Oriented: Normal Eyes: Normal Ear: Normal Nose: Normal Throat: Normal Respiratory: Diminished Cardiovascular: Tachycardia : Normal Auscultation: Bowel Sounds: Increased Palpation: Normal Tenderness: Diffuse, Moderate. negative: Rebound, Guarding Skin: Normal Musculoskeletal: Normal Psychiatric: Normal Mood Description: Calm Affect: Normal Speech Pattern: Appropriate - Laboratory and Diagnostics Result Diagrams: 01/19/18 04:10 01/19/18 04:16 Labs: Laboratory WBC 12.1 X10^3/uL (3.6-10.0) H 01/19/18 04:10 RBC 4.42 X10^6/uL (4.7-6.0) L 01/19/18 04:10 Hgb 12.9 g/dL (13.5-18.0) L 01/19/18 04:10 Hct 37.3 % (42.0-54.0) L 01/19/18 04:10 MCV 84.2 fL (80.0-100.0) 01/19/18 04:10 MCH 29.2 pg (27.0-34.0) 01/19/18 04:10 MCHC 34.7 g/dL (33.0-35.0) 01/19/18 04:10 RDW 14.1 % (11.6-16.5) 01/19/18 04:10 Plt Count 246 X10^3/uL (150.0-450.0) 01/19/18 04:10 Plt Count Comment Adequate (ADEQUATE) 01/15/18 04:45 MPV 9.2 fL (7.4-11.0) 01/19/18 04:10 Neut % (Auto) 46.7 % (42.0-75.0) 01/19/18 04:10 Lymph % (Auto) 40.1 % (21.0-51.0) 01/19/18 04:10 [place] % (Auto) 6.4 % (0.0-13.0) 01/19/18 04:10 Eos % (Auto) 6.4 % (0.9-2.9) H 01/19/18 04:10 Baso % (Auto) 0.4 % (0.2-1.0) 01/19/18 04:10 Neut # (Auto) 5.7 x10^3/uL (2.2-4.8) H 01/19/18 04:10 Lymph # (Auto) 4.9 X10^3/uL (1.3-2.9) H 01/19/18 04:10 [place] # (Auto) 0.8 x10^3/uL (0.3-0.8) 01/19/18 04:10 Eos # (Auto) 0.8 x10^3/uL (0.0-0.2) H 01/19/18 04:10 Baso # (Auto) 0.0 X10^3/uL (0.0-0.1) 01/19/18 04:10 Absolute Nucleated RBC 0.1 /100WBC 01/19/18 04:10 Total Counted 100 01/15/18 04:45 Neutrophils % (Manual) 87 % (39-76) H 01/15/18 04:45 Lymphocytes % (Manual) 12 % (13-43) L 01/15/18 04:45 Monocytes % (Manual) 1 % (4-9) L 01/15/18 04:45 Plt Morphology Comment Normal (NORMAL) 01/15/18 04:45 RBC Morphology Normal (NORMAL) 01/15/18 04:45 Sample Site Lr 01/19/18 04:41 ABG pH 7.480 (7.35-7.45) H 01/19/18 04:41 ABG pCO2 42.0 mmHg (35.0-45.0) 01/19/18 04:41 ABG pO2 89.0 mmHg (80.0-100.0) 01/19/18 04:41 ABG HCO3 31.3 mmol/L (22-26) H* 01/19/18 04:41 ABG O2 Saturation 97.0 % (90-100) 01/19/18 04:41 ABG Base Excess 7.1 mmol/L (-2.0-2.0) H 01/19/18 04:41 Geoff Test Pos 01/19/18 04:41 A-a Gradient 8.0 mmHg 01/19/18 04:41 FiO2 21 01/19/18 04:41 Blood Gas Comments Marva well ae 01/19/18 04:41 Sodium 141 mmol/L (136-145) 01/19/18 04:16 Corrected Sodium 142 mmol/L (136-145) 01/19/18 04:16 Potassium 3.8 mmol/L (3.5-5.1) 01/19/18 04:16 Chloride 103 mmol/L (98-107) 01/19/18 04:16 Carbon Dioxide 29.1 mmol/L (21-32) 01/19/18 04:16 BUN 3 mg/dL (7-18) L 01/19/18 04:16 Creatinine 0.58 mg/dL (0.70-1.30) L 01/19/18 04:16 Est GFR (MDRD) Af Amer > 60 (>60) 01/19/18 04:16 Est GFR (MDRD) Non-Af > 60 (>60) 01/19/18 04:16 Glucose 155 mg/dL (65-99) H 01/19/18 04:16 POC Glucose (mg/dL) 175 mg/dL (65-99) H 01/19/18 23:02 Hemoglobin A1c 8.8 % 01/14/18 07:24 Insulin Level 20 uIU/mL 01/14/18 01:03 Lactic Acid 0.9 mmol/L (0.4-2.0) 01/15/18 08:30 Calcium 8.6 mg/dL (8.5-10.1) 01/19/18 04:16 Corrected Calcium 9.2 mg/dL (8.5-10.1) 01/19/18 04:16 Phosphorus 3.6 mg/dL (2.6-4.7) 01/14/18 07:24 Magnesium 2.2 mg/dL (1.7-2.9) 01/19/18 04:16 Total Bilirubin 0.40 mg/dL (0.2-1.0) 01/19/18 04:16 AST 11 Units/L (15-37) L 01/19/18 04:16 ALT 16 Units/L (12-78) 01/19/18 04:16 Alkaline Phosphatase 82 Units/L (46-116) 01/19/18 04:16 Total Protein 6.4 g/dL (6.4-8.2) 01/19/18 04:16 Albumin 3.2 g/dL (3.4-5.0) L 01/19/18 04:16 Globulin 3.2 g/dL (2.5-4.5) 01/19/18 04:16 Albumin/Globulin Ratio 1.0 Ratio (1.1-2.1) L 01/19/18 04:16 Amylase 30 Units/L (25-115) 01/14/18 07:24 Lipase 91 Units/L (73-393) 01/14/18 07:24 Specimen Type Random urine 01/14/18 03:21 Urine Color Yellow (YELLOW) 01/14/18 03:21 Urine Appearance Clear (CLEAR) 01/14/18 03:21 Urine pH 5.0 (5.0 - 8.0) 01/14/18 03:21 Ur Specific [place] 1.025 (1.000-1.030) 01/14/18 03:21 Urine Protein 2+ (NEGATIVE) 01/14/18 03:21 Urine Glucose (UA) 4+ (NEGATIVE) 01/14/18 03:21 Urine Ketones 4+ (NEGATIVE) 01/14/18 03:21 Urine Occult Blood Negative (NEGATIVE) 01/14/18 03:21 Urine Nitrite Negative (NEGATIVE) 01/14/18 03:21 Urine Bilirubin Negative (NEGATIVE) 01/14/18 03:21 Urine Acetone Large (NEGATIVE) 01/18/18 22:33 Urine Urobilinogen Normal (NORMAL) 01/14/18 03:21 Ur Leukocyte Esterase Negative (NEGATIVE) 01/14/18 03:21 Urine RBC None seen /HPF (NONE SEEN) 01/14/18 03:21 Urine WBC None seen /HPF (NONE SEEN) 01/14/18 03:21 Ur Squamous Epith Cells Negative /HPF (NEGATIVE) 01/14/18 03:21 Urine Bacteria Negative /HPF (NEGATIVE) 01/14/18 03:21 Ur Culture Indicated? No/not indicated 01/14/18 03:21 Gastric Occult Blood Positive (NEGATIVE) A 01/15/18 05:52 Stool pH 2 01/15/18 05:52 Acetone, Semi-Quant Small (NEGATIVE) H 01/19/18 04:16 - Plan (1) DKA (diabetic ketoacidoses) Status: Acute Qualifiers: Diabetes mellitus type: type 2 Diabetes mellitus complication detail: without coma Qualified Code(s): E11.10 - Type 2 diabetes mellitus with ketoacidosis without coma Plan: INSULIN DRIP, NORMAL SALINE WITH 1 AMP BICARB IN EACH LITER IVF, CONTINUE TO MONITOR (2) Hypertension Status: Acute Qualifiers: Hypertension type: essential hypertension Qualified Code(s): I10 - Essential (primary) hypertension Plan: CONTINUE HOME MEDICATIONS, VASOTEC 2.50MG IV Q6H PRN, CATAPRES PATCH, CONTINUE TO MONITOR (3) Tachycardia Status: Acute Plan: CARDIZEM DRIP, DIGOXIN 0.5MG IV X 1 DOSE, PROCARDIA 60MG PO DAILY, CONTINUE TO MONITOR
--- NOTE | 2018-01-19 23:54 | PCM.PROG ---
Progress Note - Progress Note for Day of Date of Exam: 01/19/18 - Subjective Subjective: WAS ADMITTED FOR DKA AND METABOLIC ACIDOSIS. TODAY, HE IS ALERT AND ORIENTED, LYING IN BED ON MORNING ROUNDS. HE CONTINUES WITH COMPLAINTS OF WEAKNESS, ABDOMINAL PAIN, AND NAUSEA. HE ALSO CONTINUES WITH TACHYCARDIA TODAY. HE REMAINS ON A CARDIZEM DRIP AT 5MG/HR. ON EXAMINATION, HE IS TACHYCARDIC WITH HR 110-120 BEATS/MIN. BILATERAL LUNGS ARE NOTED WITH DIMINISHED LUNG SOUNDS THROUGHOUT. ABDOMEN IS FLAT, SOFT, AND NOTED WITH MILD, DIFFUSE TENDERNESS. HYPERACTIVE BOWEL SOUNDS NOTED IN ALL QUADRANTS. HIS VITALS THIS MORNING ARE 97.2-119-18-96%-132/91. LABS WERE OBTAINED. ABNORMAL LAB VALUES INCLUDE THE FOLLOWING: WBC 12.1, RBC 4.42, HGB 12.9, HCT 37.3, BUN 3, CREATININE 0.58, GLUCOSE 155, AST 11, ABLUMIN 3.2. ABG REVEALED: PH 7.480, PCO2 42.0, P02 89.0, HC03 31.3, BASE EXCESS 7.1. SERUM ACETONES SMALL. TODAY, WE WILL INCREASE PROCARDIA TO 90MG PO DAILY AND INCREASE LISINOPRIL TO 20MG PO BID. OTHERWISE, WE WILL CONTINUE WITH CARDIZEM DRIP AND OTHER HYPERTENSIVE MEDICATIONS. WE WILL DISCONTINUE THE BICARB FROM THE IV FLUIDS. WE PLAN TO FOLLOW UP WITH AM LABS AND ABG AND CONTINUE TO MONITOR PATIENT. - Past Medical Family Social History Past Med/Fam/Surg Hx: No changes since H&P Allergies: Allergies No Known Drug Allergies Allergy (Verified 10/07/17 10:20) - Review of Systems ROS: No change since H&P - Vital Signs and I&O's Vital Signs: Temperature 97.8 F Pulse Rate [Apical] 119 Pulse Rate 112 Respiratory Rate 20 Blood Pressure [Left Arm] 120/80 Blood Pressure [Right Arm] 120/80 Blood Pressure 135/96 O2 Sat by Pulse Oximetry 100 Intake and Output: Intake & Output 01/17/18 01/18/18 01/19/18 01/20/18 11:59 11:59 11:59 11:59 Intake Total 3367 / 3367 7609.0 / 7609.0 7013 / 7013 3853 / 3853 Output Total 6200 / 6200 5900 / 5900 7000 / 7000 3150 / 3150 Balance -2833 / -2833 1709.0 / 1709.0 703 / 703 - Physical Exam Oriented: Normal Eyes: Normal Ear: Normal Nose: Normal Throat: Normal Respiratory: Diminished Cardiovascular: Tachycardia : Normal Auscultation: Bowel Sounds: Increased Palpation: Normal Tenderness: Diffuse, Moderate. negative: Rebound, Guarding Skin: Normal Musculoskeletal: Normal Psychiatric: Normal Mood Description: Calm Affect: Normal Speech Pattern: Appropriate - Laboratory and Diagnostics Result Diagrams: 01/19/18 04:10 01/19/18 04:16 Labs: Laboratory WBC 12.1 X10^3/uL (3.6-10.0) H 01/19/18 04:10 RBC 4.42 X10^6/uL (4.7-6.0) L 01/19/18 04:10 Hgb 12.9 g/dL (13.5-18.0) L 01/19/18 04:10 Hct 37.3 % (42.0-54.0) L 01/19/18 04:10 MCV 84.2 fL (80.0-100.0) 01/19/18 04:10 MCH 29.2 pg (27.0-34.0) 01/19/18 04:10 MCHC 34.7 g/dL (33.0-35.0) 01/19/18 04:10 RDW 14.1 % (11.6-16.5) 01/19/18 04:10 Plt Count 246 X10^3/uL (150.0-450.0) 01/19/18 04:10 Plt Count Comment Adequate (ADEQUATE) 01/15/18 04:45 MPV 9.2 fL (7.4-11.0) 01/19/18 04:10 Neut % (Auto) 46.7 % (42.0-75.0) 01/19/18 04:10 Lymph % (Auto) 40.1 % (21.0-51.0) 01/19/18 04:10 [place] % (Auto) 6.4 % (0.0-13.0) 01/19/18 04:10 Eos % (Auto) 6.4 % (0.9-2.9) H 01/19/18 04:10 Baso % (Auto) 0.4 % (0.2-1.0) 01/19/18 04:10 Neut # (Auto) 5.7 x10^3/uL (2.2-4.8) H 01/19/18 04:10 Lymph # (Auto) 4.9 X10^3/uL (1.3-2.9) H 01/19/18 04:10 [place] # (Auto) 0.8 x10^3/uL (0.3-0.8) 01/19/18 04:10 Eos # (Auto) 0.8 x10^3/uL (0.0-0.2) H 01/19/18 04:10 Baso # (Auto) 0.0 X10^3/uL (0.0-0.1) 01/19/18 04:10 Absolute Nucleated RBC 0.1 /100WBC 01/19/18 04:10 Total Counted 100 01/15/18 04:45 Neutrophils % (Manual) 87 % (39-76) H 01/15/18 04:45 Lymphocytes % (Manual) 12 % (13-43) L 01/15/18 04:45 Monocytes % (Manual) 1 % (4-9) L 01/15/18 04:45 Plt Morphology Comment Normal (NORMAL) 01/15/18 04:45 RBC Morphology Normal (NORMAL) 01/15/18 04:45 Sample Site Lr 01/19/18 04:41 ABG pH 7.480 (7.35-7.45) H 01/19/18 04:41 ABG pCO2 42.0 mmHg (35.0-45.0) 01/19/18 04:41 ABG pO2 89.0 mmHg (80.0-100.0) 01/19/18 04:41 ABG HCO3 31.3 mmol/L (22-26) H* 01/19/18 04:41 ABG O2 Saturation 97.0 % (90-100) 01/19/18 04:41 ABG Base Excess 7.1 mmol/L (-2.0-2.0) H 01/19/18 04:41 Geoff Test Pos 01/19/18 04:41 A-a Gradient 8.0 mmHg 01/19/18 04:41 FiO2 21 01/19/18 04:41 Blood Gas Comments Marva well ae 01/19/18 04:41 Sodium 141 mmol/L (136-145) 01/19/18 04:16 Corrected Sodium 142 mmol/L (136-145) 01/19/18 04:16 Potassium 3.8 mmol/L (3.5-5.1) 01/19/18 04:16 Chloride 103 mmol/L (98-107) 01/19/18 04:16 Carbon Dioxide 29.1 mmol/L (21-32) 01/19/18 04:16 BUN 3 mg/dL (7-18) L 01/19/18 04:16 Creatinine 0.58 mg/dL (0.70-1.30) L 01/19/18 04:16 Est GFR (MDRD) Af Amer > 60 (>60) 01/19/18 04:16 Est GFR (MDRD) Non-Af > 60 (>60) 01/19/18 04:16 Glucose 155 mg/dL (65-99) H 01/19/18 04:16 POC Glucose (mg/dL) 175 mg/dL (65-99) H 01/19/18 23:02 Hemoglobin A1c 8.8 % 01/14/18 07:24 Insulin Level 20 uIU/mL 01/14/18 01:03 Lactic Acid 0.9 mmol/L (0.4-2.0) 01/15/18 08:30 Calcium 8.6 mg/dL (8.5-10.1) 01/19/18 04:16 Corrected Calcium 9.2 mg/dL (8.5-10.1) 01/19/18 04:16 Phosphorus 3.6 mg/dL (2.6-4.7) 01/14/18 07:24 Magnesium 2.2 mg/dL (1.7-2.9) 01/19/18 04:16 Total Bilirubin 0.40 mg/dL (0.2-1.0) 01/19/18 04:16 AST 11 Units/L (15-37) L 01/19/18 04:16 ALT 16 Units/L (12-78) 01/19/18 04:16 Alkaline Phosphatase 82 Units/L (46-116) 01/19/18 04:16 Total Protein 6.4 g/dL (6.4-8.2) 09/21/18 04:16 Albumin 3.2 g/dL (3.4-5.0) L 01/19/18 04:16 Globulin 3.2 g/dL (2.5-4.5) 01/19/18 04:16 Albumin/Globulin Ratio 1.0 Ratio (1.1-2.1) L 01/19/18 04:16 Amylase 30 Units/L (25-115) 01/14/18 07:24 Lipase 91 Units/L (73-393) 01/14/18 07:24 Specimen Type Random urine 01/14/18 03:21 Urine Color Yellow (YELLOW) 01/14/18 03:21 Urine Appearance Clear (CLEAR) 01/14/18 03:21 Urine pH 5.0 (5.0 - 8.0) 01/14/18 03:21 Ur Specific [place] 1.025 (1.000-1.030) 01/14/18 03:21 Urine Protein 2+ (NEGATIVE) 01/14/18 03:21 Urine Glucose (UA) 4+ (NEGATIVE) 01/14/18 03:21 Urine Ketones 4+ (NEGATIVE) 01/14/18 03:21 Urine Occult Blood Negative (NEGATIVE) 01/14/18 03:21 Urine Nitrite Negative (NEGATIVE) 01/14/18 03:21 Urine Bilirubin Negative (NEGATIVE) 01/14/18 03:21 Urine Acetone Large (NEGATIVE) 01/18/18 22:33 Urine Urobilinogen Normal (NORMAL) 01/14/18 03:21 Ur Leukocyte Esterase Negative (NEGATIVE) 01/14/18 03:21 Urine RBC None seen /HPF (NONE SEEN) 01/14/18 03:21 Urine WBC None seen /HPF (NONE SEEN) 01/14/18 03:21 Ur Squamous Epith Cells Negative /HPF (NEGATIVE) 01/14/18 03:21 Urine Bacteria Negative /HPF (NEGATIVE) 01/14/18 03:21 Ur Culture Indicated? No/not indicated 01/14/18 03:21 Gastric Occult Blood Positive (NEGATIVE) A 01/15/18 05:52 Stool pH 2 01/15/18 05:52 Acetone, Semi-Quant Small (NEGATIVE) H 01/19/18 04:16 - Plan (1) DKA (diabetic ketoacidoses) Status: Acute Qualifiers: Diabetes mellitus type: type 2 Diabetes mellitus complication detail: without coma Qualified Code(s): E11.10 - Type 2 diabetes mellitus with ketoacidosis without coma Plan: INSULIN DRIP, NORMAL SALINE WITH 1 AMP BICARB IN EACH LITER IVF, CONTINUE TO MONITOR (2) Hypertension Status: Acute Qualifiers: Hypertension type: essential hypertension Qualified Code(s): I10 - Essential (primary) hypertension Plan: CONTINUE HOME MEDICATIONS, VASOTEC 2.50MG IV Q6H PRN, CATAPRES PATCH, LISINOPRIL 20MG PO BID, CONTINUE TO MONITOR (3) Tachycardia Status: Acute Plan: CARDIZEM DRIP, DIGOXIN 0.5MG IV X 1 DOSE, PROCARDIA 90MG PO DAILY, CONTINUE TO MONITOR
[2018-01-20] MEDS: CARDIZEM INJ 125 MG VIAL 125 MG in NS 100 ML IV 100 ML IV PRN ×3 (00:43→17:10)
[2018-01-20] MEDS: DEMEROL INJ IVP PRN ×4 (00:52→12:58)
[2018-01-20] MEDS: PHENERGAN INJ 25 MG IVP PRN ×4 (00:53→12:59)
[2018-01-20] MEDS: NS 1000 ML 1,000 ML IV SCH ×3 (05:15→21:26)
[2018-01-20 05:57] LABS: BASOPHILS # (AUTO) 0.1 X10^3/uL (0.0-0.1); BASOPHILS % (AUTO) 1.3 % (0.2-1.0); EOSINOPHILS # (AUTO) 0.9 x10^3/uL (0.0-0.2); EOSINOPHILS % (AUTO) 8.4 % (0.9-2.9); HEMATOCRIT 38.9 % (42.0-54.0); HEMOGLOBIN 13.5 g/dL (13.5-18.0); LYMPHOCYTES # (AUTO) 3.4 X10^3/uL (1.3-2.9); LYMPHOCYTES % (AUTO) 32.6 % (21.0-51.0); MEAN CORPUSCULAR HEMOGLOBIN 29.4 pg (27.0-34.0); MEAN CORPUSCULAR HGB CONC 34.6 g/dL (33.0-35.0); MEAN CORPUSCULAR VOLUME 84.9 fL (80.0-100.0); MEAN PLATELET VOLUME 9.2 fL (7.4-11.0); MONOCYTES # (AUTO) 0.6 x10^3/uL (0.3-0.8); MONOCYTES % (AUTO) 5.9 % (0.0-13.0); NEUTROPHILS # (AUTO) 5.5 x10^3/uL (2.2-4.8); NEUTROPHILS % (AUTO) 51.8 % (42.0-75.0); PLATELET COUNT 292 X10^3/uL (150.0-450.0); RED BLOOD COUNT 4.58 X10^6/uL (4.7-6.0); RED CELL DISTRIBUTION WIDTH 13.8 % (11.6-16.5); WHITE BLOOD COUNT 10.6 X10^3/uL (3.6-10.0)
[2018-01-20 06:15] LABS: ALANINE AMINOTRANSFERASE 16 Units/L (12-78); ALBUMIN 3.5 g/dL (3.4-5.0); ALKALINE PHOSPHATASE 88 Units/L (46-116); ASPARTATE AMINO TRANSFERASE 14 Units/L (15-37); BLOOD UREA NITROGEN 5 mg/dL (7-18); CALCIUM 8.7 mg/dL (8.5-10.1); CARBON DIOXIDE 27.6 mmol/L (21-32); CHLORIDE 99 mmol/L (98-107); COR NA(FOR HYPERGLY) 139 mmol/L (136-145); CREATININE 0.62 mg/dL (0.70-1.30); SODIUM 138 mmol/L (136-145); TOTAL PROTEIN 7.1 g/dL (6.4-8.2); eGFR NON BLACK RACES > 60 (>60)
[2018-01-20] MEDS ORDERED: ZESTRIL TAB 20 MG ONE ×2 (09:03→19:12)
[2018-01-20] MEDS: PROTONIX INJ 40 MG VIAL IVP SCH ×2 (09:14→20:24)
[2018-01-20] MEDS: KLONOPIN TAB 1 MG PO SCH (09:17)
[2018-01-20] MEDS: COLACE CAP 100 MG PO SCH ×2 (09:17→20:23)
[2018-01-20] MEDS: ZESTRIL TAB 20 MG PO SCH ×2 (09:17→20:24)
[2018-01-20] MEDS: MILK OF MAGNESIA PO SCH ×3 (09:17→20:23)
[2018-01-20] MEDS: LINZESS PO SCH (09:17)
[2018-01-20] MEDS: PROCARDIA XL PO SCH (09:17)
[2018-01-20] MEDS: XANAX PO SCH (09:18)
[2018-01-20] MEDS: PEPCID 20 MG IV PREMIX* 20 MG/50 ML BAG IV SCH ×2 (09:18→20:25)
[2018-01-20] MEDS: CHECK PATCH XX SCH ×2 (09:24→20:25)
[2018-01-20] MEDS ORDERED: DULCOLAX SUPPOSITORY 10 MG RECTAL ONE (11:53)
[2018-01-20] MEDS ORDERED: CITROMA PO ONE (12:12)
[2018-01-20] MEDS: METHADONE HCL PO SCH ×2 (15:03→20:23)
[2018-01-20] MEDS: HumuLIN R SC PRN ×3 (16:25→20:50)
[2018-01-20] MEDS: SNACK - Diabetic Appropriate PO SCH (20:25)
[2018-01-20] MEDS: TOUJEO SOLOSTAR PEN SC SCH (21:38)
[2018-01-21] MEDS: NS 1000 ML 1,000 ML IV SCH ×3 (05:37→20:25)
[2018-01-21] MEDS: HumuLIN R SC PRN ×3 (05:38→16:23)
[2018-01-21 05:55] LABS: ALANINE AMINOTRANSFERASE 14 Units/L (12-78); ALBUMIN 2.6 g/dL (3.4-5.0); ALKALINE PHOSPHATASE 61 Units/L (46-116); ASPARTATE AMINO TRANSFERASE 10 Units/L (15-37); BLOOD UREA NITROGEN 10 mg/dL (7-18); CALCIUM 8.1 mg/dL (8.5-10.1); CARBON DIOXIDE 25.6 mmol/L (21-32); CHLORIDE 103 mmol/L (98-107); COR CA(FOR HYPOALB) 9.2 mg/dL (8.5-10.1); COR NA(FOR HYPERGLY) 143 mmol/L (136-145); CREATININE 0.61 mg/dL (0.70-1.30); SODIUM 138 mmol/L (136-145); TOTAL PROTEIN 5.3 g/dL (6.4-8.2); eGFR NON BLACK RACES > 60 (>60)
[2018-01-21 06:26] LABS: BASOPHILS # (AUTO) 0.2 X10^3/uL (0.0-0.1); BASOPHILS % (AUTO) 1.2 % (0.2-1.0); EOSINOPHILS # (AUTO) 0.9 x10^3/uL (0.0-0.2); EOSINOPHILS % (AUTO) 5.6 % (0.9-2.9); HEMATOCRIT 35.8 % (42.0-54.0); HEMOGLOBIN 11.8 g/dL (13.5-18.0); LYMPHOCYTES # (AUTO) 7.4 X10^3/uL (1.3-2.9); LYMPHOCYTES % (AUTO) 46.6 % (21.0-51.0); MEAN CORPUSCULAR HEMOGLOBIN 28.5 pg (27.0-34.0); MEAN CORPUSCULAR HGB CONC 32.9 g/dL (33.0-35.0); MEAN CORPUSCULAR VOLUME 86.6 fL (80.0-100.0); MEAN PLATELET VOLUME 8.5 fL (7.4-11.0); MONOCYTES # (AUTO) 0.8 x10^3/uL (0.3-0.8); MONOCYTES % (AUTO) 4.9 % (0.0-13.0); NEUTROPHILS # (AUTO) 6.6 x10^3/uL (2.2-4.8); NEUTROPHILS % (AUTO) 41.7 % (42.0-75.0); PLATELET COUNT 194 X10^3/uL (150.0-450.0); RED BLOOD COUNT 4.14 X10^6/uL (4.7-6.0); RED CELL DISTRIBUTION WIDTH 14.2 % (11.6-16.5); WHITE BLOOD COUNT 15.8 X10^3/uL (3.6-10.0)
[2018-01-21 07:05] LABS: PLATELET MORPHOLOGY COMMENT NORMAL (NORMAL)
[2018-01-21] MEDS ORDERED: ZESTRIL TAB 20 MG ONE ×2 (08:53→19:21)
[2018-01-21] MEDS: KLONOPIN TAB 1 MG PO SCH (09:13)
[2018-01-21] MEDS: CHECK PATCH XX SCH ×2 (09:13→20:25)
[2018-01-21] MEDS: COLACE CAP 100 MG PO SCH ×2 (09:13→20:26)
[2018-01-21] MEDS: METHADONE HCL PO SCH ×2 (09:14→20:27)
[2018-01-21] MEDS: LINZESS PO SCH (09:14)
[2018-01-21] MEDS: MILK OF MAGNESIA PO SCH ×2 (09:15→20:26)
[2018-01-21] MEDS: PROTONIX INJ 40 MG VIAL IVP SCH ×2 (09:15→20:27)
[2018-01-21] MEDS: PROCARDIA XL PO SCH (09:15)
[2018-01-21] MEDS: PEPCID 20 MG IV PREMIX* 20 MG/50 ML BAG IV SCH ×2 (09:15→20:27)
[2018-01-21] MEDS: ZESTRIL TAB 20 MG PO SCH ×2 (09:15→21:16)
[2018-01-21] MEDS ORDERED: LOPRESSOR INJ 5 MG AMP IVP ONE (13:46)
[2018-01-21] MEDS: LOPRESSOR TAB 25 MG PO SCH ×2 (14:29→20:26)
[2018-01-21 14:33] LABS: T4 (THYROXINE) 9.3 ug/dL (4.7-13.3); TSH (3RD GENERATION) 2.658 uIU/mL (0.358-3.74)
[2018-01-21] MEDS: SNACK - Diabetic Appropriate PO SCH (20:25)
[2018-01-21] MEDS: TOUJEO SOLOSTAR PEN SC SCH (21:45)
[2018-01-22] MEDS: HumuLIN R SC PRN (05:42)
[2018-01-22 06:34] LABS: BASOPHILS # (AUTO) 0.1 X10^3/uL (0.0-0.1); BASOPHILS % (AUTO) 0.8 % (0.2-1.0); EOSINOPHILS # (AUTO) 0.6 x10^3/uL (0.0-0.2); EOSINOPHILS % (AUTO) 5.6 % (0.9-2.9); HEMATOCRIT 34.5 % (42.0-54.0); HEMOGLOBIN 11.5 g/dL (13.5-18.0); LYMPHOCYTES # (AUTO) 4.9 X10^3/uL (1.3-2.9); LYMPHOCYTES % (AUTO) 42.3 % (21.0-51.0); MEAN CORPUSCULAR HEMOGLOBIN 29.2 pg (27.0-34.0); MEAN CORPUSCULAR HGB CONC 33.3 g/dL (33.0-35.0); MEAN CORPUSCULAR VOLUME 87.6 fL (80.0-100.0); MEAN PLATELET VOLUME 8.8 fL (7.4-11.0); MONOCYTES # (AUTO) 0.9 x10^3/uL (0.3-0.8); MONOCYTES % (AUTO) 7.9 % (0.0-13.0); NEUTROPHILS % (AUTO) 43.4 % (42.0-75.0); PLATELET COUNT 274 X10^3/uL (150.0-450.0); RED BLOOD COUNT 3.93 X10^6/uL (4.7-6.0); RED CELL DISTRIBUTION WIDTH 13.9 % (11.6-16.5); WHITE BLOOD COUNT 11.5 X10^3/uL (3.6-10.0)
[2018-01-22 06:46] LABS: ALANINE AMINOTRANSFERASE 16 Units/L (12-78); ALBUMIN 3.2 g/dL (3.4-5.0); ALKALINE PHOSPHATASE 75 Units/L (46-116); ASPARTATE AMINO TRANSFERASE 12 Units/L (15-37); BLOOD UREA NITROGEN 9 mg/dL (7-18); CALCIUM 8.7 mg/dL (8.5-10.1); CHLORIDE 98 mmol/L (98-107); COR CA(FOR HYPOALB) 9.3 mg/dL (8.5-10.1); COR NA(FOR HYPERGLY) 143 mmol/L (136-145); CREATININE 0.76 mg/dL (0.70-1.30); SODIUM 137 mmol/L (136-145); TOTAL PROTEIN 6.4 g/dL (6.4-8.2); eGFR NON BLACK RACES > 60 (>60)
[2018-01-22] MEDS: NS 1000 ML 1,000 ML IV SCH ×2 (07:23→10:03)
[2018-01-22] MEDS ORDERED: ZESTRIL TAB 20 MG ONE (07:53)
[2018-01-22] MEDS: PROTONIX INJ 40 MG VIAL IVP SCH (08:09)
[2018-01-22] MEDS: MILK OF MAGNESIA PO SCH (08:09)
[2018-01-22] MEDS: LINZESS PO SCH (08:10)
[2018-01-22] MEDS: COLACE CAP 100 MG PO SCH (08:11)
[2018-01-22] MEDS: KLONOPIN TAB 1 MG PO SCH (08:11)
[2018-01-22] MEDS: ZESTRIL TAB 20 MG PO SCH (08:11)
[2018-01-22] MEDS: LOPRESSOR TAB 25 MG PO SCH (08:12)
[2018-01-22] MEDS: METHADONE HCL PO SCH (08:12)
[2018-01-22] MEDS: PEPCID 20 MG IV PREMIX* 20 MG/50 ML BAG IV SCH (08:13)
[2018-01-22] MEDS: CHECK PATCH XX SCH (08:16)
[2018-01-22] MEDS: PROCARDIA XL PO SCH (08:22)
[2018-01-22 11:12] VITALS: BP 131/100
[2018-01-22] MEDS ORDERED: HEPARIN SODIUM INJ 5000 UNITS IVP ONE (11:26)
--- NOTE | 2018-02-26 22:38 | DR.CARTERD ---
- Discharge Summary for: Discharge Summary for Date of:: 01/22/18 - Admission Date Date of Admission: 01/14/18 - Admission Diagnoses Admission Diagnosis: (1) DKA (diabetic ketoacidoses) (2) Hypertension (3) Tachycardia - Discharge Date Discharge Date: 01/22/18 - Discharge Diagnoses Discharge Diagnosis: (1) DKA (diabetic ketoacidoses) (2) Hypertension (3) Tachycardia - Hospital Course Hospital Course: Mr. Qureshi presented to the emergency room with reports of nausea and vomiting and malaise. Patient reported symptoms started 2-3 days prior and had not been able to take his oral pain medications. Despite taking his Levemir, he presented to the emergency room in ketoacidosis. Patient stated I think Im constipated again and that is why Im sick. We treated with the Diabetic ketoacidosis protocol and restarted some of his home medications. We administered IM Demerol for pain. We continued to monitor. Medical History: Hypertension, Gerd, Pancreatitis, Constipation, Diarrhea, UTIs, Back Pain, DM type I, Anxiety, Depression. Medications: NS 1liter bolus x4, Phenergan 25mg IV x1, Humulin R 6units SC x1, Humulin R 6units IV x1, Toradol 30mg IV x1, Sodiuim Bicarb 8.4% IV x2, Humulin R 4units IV x1, Magnesium 1gm IV x1, Insulin Drip titrate per protocol, NS @300ml/hr, OTBS Q1hr, Humulin R sliding scale PRN, Demerol 50mg IM Q6hr PRN, Colace 200mg po BID, Magnesium Protocol PRN, Potassium Protocol PRN, Toujeo 15units SC HS, Phenergan 25mg IM Q6hr PRN. Abnormal Labs: WBC 21.0, MCHC 32.4, Sodium 135, 151, 147, 146, 146, Corrected Sodium 149, Potassium 3.2, 3.1, 2.6, Chloride 95, 108, 112, 112, 109, Carbon Dioxide 8.9, 9.0, 12.1, 16.4, 20.6, BUN 6, Creatinine 1.33, 1.34, Glucose 466, 361, 190, Calcium 8.4, 8.4, Magnesium 1.5, 1.5, AST 12, Total Protein 8.4, A/G Ratio 1.0. ABG: @0345 pH 7.040, pCO2 16.0, pO2 113.0, HCO3 4.3, Base Excess -24.5; @0550 pH 7.140, pCO2 15.0, pO2 117.0, HCO3 5.1, Base Excess -21.7. Urinalysis: Protein 2+, Glucose 4+, Ketones 4+; Urine Acetone Large. Chest X-Ray: No acute chest process. Abdomen X-Ray: No acute cardiopulmonary disease. No evidence for acute abdominal pathology. EKG: Sinus Tachycardia. Lrup=507. Day two, Patient was unable to hod any medications down. He continued with nausea and vomiting. Patient was tachycardic, 110-115 per cardiac exercise specialist. Gastric occult blood postive. We started Pepcid and Protonix IV. We also added an amp of Bicarb to each liter of IV fluids and started Vasotec IV prn hypertension. Day three, blood pressure was 168/112. Heart rate 120 per cardiac exercise specialist. We increased Vasotec to 2.50mg IV q6h prn HTN and continued with aggressive IV hydration. Day four, He continued with complaints of weakness, nausea, and abdominal pain, but denied vomiting. He was given one dose of Procardia the day before and started on a Cardizem drip due to elevated heart rate and hypertension. On examination, he was tachycardic with HR in the 120s. His vitals were 98.9-474-54-100%-140/96. Labs were obtained. Abnormal lab values include the following: WBC 14.4, HCT 38.8, Potassium 2.6, BUN 3, Glucose 137, and Calcium 8.3. We continued with Cardizem drip and hypertensive medications. Day five, He continued with tachycardia and remained on Cardizem drip at 5mg/hr and an Insulin drip at 1mg/hr. Heart rate was noted to be 110-115 per cardiac exercise specialist. Blood pressure was 132/92. Urine acetones large. We administered one dose of Digoxin 0.5mg IV x 1 dose and started Procardia xl 60mg po daily. We continued with treatment and monitored. Day six, Vitals were 97.2-119-18-96%-132/91. Patient continued with reports of nausea and abdominal pain, but denied vomiting. Serum acetones small. We increased Procardia to 90mg po daily and increased Lisinopril to 20mg po bid. We continued with Cardizem drip. We discontinued Bicarb from IV fluids. We continued to monitor. Day seven and eight, He was sitting up in bed. He stated that he just had a large bowel movement prior to assessment. The patient had eaten breakfast and tolerated this well. He continued to be tachycardic and was still on the Cardizem drip. We discussed stopping the patients Cardizem drip and repeating a serum and urine acetone level. The patients white count was 15.8 with a hemoglobin of 11.8. His renal function was within normal limits with BUN of 10 and creatinine of 0.61. The patients glucose was 316 on fasting labs. He denied any abdominal pain. We resumed the patients home PO methadone for chronic pain syndrome with much improved blood pressure. Day nine, Patient reported he was feeling much better. Patient denied abdominal pain or nausea and vomiting. Cardizem drip was discontinued and patient's blood pressure was 135/90, heart rate in the 90s. Vital signs stable. Labs wnl. Glucose was 346 and covered with regular insulin. Recheck was 143. We planned for discharge. Instructions for medications and follow up were discussed with patient and family, both voiced understanding. Patient discharged home in stable condition with family. - Discharge Medications Discharge Medications: Home Medication List alprazolam 2 mg PO TID PRN 01/14/18 [History] clonazepam 2 mg PO HS 01/14/18 [History] gabapentin 1 tab PO TID 01/14/18 [History] methadone 20 mg PO QID PRN 01/14/18 [History] clonidine 1 ea TD Q7D #4 ea 01/22/18 [Rx] linaclotide [Linzess] 290 mcg PO QDAY #30 cap 01/22/18 [Rx] metoprolol tartrate 25 mg PO BID #60 tab 01/22/18 [Rx] Prescriptions: clonidine Charlie Dallas linaclotide [Linzess] Charlie Dallas metoprolol tartrate Charlie Dallas dextroamphetamine-amphetamine 20 mg PO BID 02/09/18 docusate sodium [Colace] 100 mg PO DAILY 02/09/18 insulin aspart U-100 3 units SUBCUT QAC 02/09/18 insulin detemir U-100 25 units SUBCUT BID 02/09/18 nifedipine 90 mg PO DAILY 02/09/18 ondansetron HCl [Zofran] 8 mg PO Q4-6H PRN 02/09/18 - Discharge Disposition Discharge Disposition: Patient is to follow up in our office in one week.
== END 2018-01-22 13:10 | disposition home or self-care (01) | DRG 639 ==
LOC: ER 00:57 → ICU 07:28
PROVIDERS: ADMIT Obstetrics & Gynecology Obstetrics; ATTEND Internal Medicine
DX: R10.84 Generalized abdominal pain; I10 Essential (primary) hypertension; R94.31 Abnormal electrocardiogram [ECG] [EKG]; Z79.4 Long term (current) use of insulin; Z79.899 Other long term (current) drug therapy; G62.9 Polyneuropathy, unspecified; K59.09 Other constipation; R00.0 Tachycardia, unspecified; E10.10 Type 1 diabetes mellitus with ketoacidosis without coma; R11.2 Nausea with vomiting, unspecified; R53.1 Weakness
CPT/HCPCS: 36415; 36600; 51702; 71010; 71045; 74022; 80048; 80053; 81001; 82009; 82150; 82271; 82803; 83036; 83525; 83605; 83690; 83735; 84100; 84132; 84436; 84443; 84479; 85025; 93005; 93010; 96365; 96367; 96372; 96374; 96375; 99231; 99284; 99285; A4222; C9113; S0028; S0109; J1160; J1642; J1815; J1885; J2175; J2550; J3475; J3480; J3490; J7030; J7050; J8499

== ENCOUNTER 2018-02-09 07:23 | Inpatient (IN) ==
[2018-02-09] MEDS ORDERED: NS 1000 ML 1,000 ML ONE ×2 (07:41→08:56)
[2018-02-09] MEDS ORDERED: ZOFRAN INJ 4 MG VIAL ONE ×2 (07:41→10:42)
[2018-02-09] MEDS ORDERED: NS 1000 ML 1,000 ML IV ONE ×2 (07:53→09:00)
[2018-02-09] MEDS ORDERED: ZOFRAN INJ 4 MG VIAL IVP ONE (07:53)
[2018-02-09 08:12] LABS: BASOPHILS # (AUTO) 0.1 X10^3/uL (0.0-0.1); BASOPHILS % (AUTO) 0.9 % (0.2-1.0); EOSINOPHILS % (AUTO) 0.1 % (0.9-2.9); HEMATOCRIT 43.5 % (42.0-54.0); HEMOGLOBIN 14.1 g/dL (13.5-18.0); LYMPHOCYTES # (AUTO) 2.5 X10^3/uL (1.3-2.9); LYMPHOCYTES % (AUTO) 18.4 % (21.0-51.0); MEAN CORPUSCULAR HGB CONC 32.4 g/dL (33.0-35.0); MEAN CORPUSCULAR VOLUME 89.5 fL (80.0-100.0); MEAN PLATELET VOLUME 8.9 fL (7.4-11.0); MONOCYTES # (AUTO) 0.5 x10^3/uL (0.3-0.8); MONOCYTES % (AUTO) 3.5 % (0.0-13.0); NEUTROPHILS # (AUTO) 10.6 x10^3/uL (2.2-4.8); NEUTROPHILS % (AUTO) 77.1 % (42.0-75.0); PLATELET COUNT 311 X10^3/uL (150.0-450.0); RED BLOOD COUNT 4.86 X10^6/uL (4.7-6.0); RED CELL DISTRIBUTION WIDTH 14.8 % (11.6-16.5); WHITE BLOOD COUNT 13.7 X10^3/uL (3.6-10.0)
[2018-02-09 08:15] LABS: BLOOD UREA NITROGEN 13 mg/dL (7-18); CALCIUM 10.1 mg/dL (8.5-10.1); CHLORIDE 97 mmol/L (98-107); COR NA(FOR HYPERGLY) 144 mmol/L (136-145); CREATININE 1.12 mg/dL (0.70-1.30); SODIUM 136 mmol/L (136-145); eGFR NON BLACK RACES > 60 (>60)
[2018-02-09 08:19] LABS: ALANINE AMINOTRANSFERASE 15 Units/L (12-78); ALBUMIN 3.9 g/dL (3.4-5.0); ALKALINE PHOSPHATASE 104 Units/L (46-116); ASPARTATE AMINO TRANSFERASE 14 Units/L (15-37); TOTAL PROTEIN 8.2 g/dL (6.4-8.2)
[2018-02-09 08:22] LABS: LACTIC ACID 3.5 mmol/L (0.4-2.0)
[2018-02-09 08:23] LABS: SERUM ACETONE MODERATE (NEGATIVE)
[2018-02-09 08:24] LABS: CARBON DIOXIDE 10.6 mmol/L (21-32)
[2018-02-09 08:27] LABS: ABG BASE EXCESS -15.2 mmol/L (-2.0-2.0)
[2018-02-09 08:28] LABS: ABG HCO3 11.8 mmol/L (22-26); FRACTIONATED INSPIRED OXYGEN 21
--- NOTE | 2018-02-09 08:34 | RAD ---
Examination: AP chest History: Elevated blood sugar, nausea and vomiting Comparison 01/14/2018 Findings: Normal heart size with clear lungs and pleural spaces. Stable position of right subclavian injection port terminating at the cavoatrial junction. Impression: No acute chest findings. Reported By:
[2018-02-09 08:35] LABS: CKMB % 1.8 % (<4); CREATINE KINASE 56 Units/L (39-308); CREATINE KINASE MB < 1.0 ng/mL (0-4.0); TROPONIN I < 0.02 ng/mL (0-1.5)
[2018-02-09] MEDS ORDERED: SODIUM BICARBONATE 8.4% INJ ADULT ONE ×2 (08:56→10:34)
--- NOTE | 2018-02-09 08:56 | DR.HYPOGLY ---
HPI Time Seen Time Seen by Provider: 02/09/18 08:28 PCP Primary Care Physician: KRYS PALMER Complaint Chief Complaint Doctors Comments: Patient reports that he was got abdominal pain suddenly s/p vomiting blood tinged emesis. He denies fever or diarrhea. Chief Complaint:: EMS OUT TO PT WITH BS > AND EMS STATES PTS BS WAS 400 AND PT C/O NAUSEA AND VOMITTING , UPON ARRIVAL PT IS PALE C/O NAUSEA DARK BROWN VOMIT NOTED IN BAG APPROX 200 ML'S AND , PT PLACED ON TELE HR OF 145 NOTED NO DISTRESS NOTED ,,BR Source History Provided: Patient and EMS Mode of Arrival Mode of Arrival: Stretcher Timing Onset of Chief Complaint: 02/07/18 PMH PMH Past Medical History: Yes Past Medical History: Diabetes Past Surgical History: Yes Surgical History: Other Family History History of Family Medical Conditions: Yes Family Medical History: Diabetes Mellitus, Sudden Cardiac and Hypertension Social History Does patient currently use any type of tobacco product: No Have you used tobacco products in the last 12 months: No Type of Tobacco Use: None Does any household member use tobacco: No Alcohol Use: None Do you use any recreational Drugs:: No Lives With: Family Lives Where: Home infectious screening In the last 2 months have you had wt loss of >10#?: NO Have you had fever, night sweats or hemotysis?: No Have you traveled outside the country in the last 6 months?: No Isolation: Standard PE Vital Signs Vitals: Temperature 96.8 F Pulse Rate [Apical] 137 Pulse Rate 129 Respiratory Rate 18 Blood Pressure [Left Arm] 120/80 Blood Pressure [Right Arm] 130/68 Blood Pressure 129/68 O2 Sat by Pulse Oximetry 100 General Limitations: Altered Mental Status General Appearance: Alert, In No Apparent Distress and Obtunded Eyes Eye exam: Normal Appearance, PERRL, EOMI, Scleral Icterus, Conjunctival Injection, Nystagmus and Other (sunken) Pupils: Regular, Round: Bilateral Sclera/Conjunctival: Normal Inspection: Bilateral ENT ENT Exam: Normal Exam and TM's Normal Bilaterally Nose Exam: Normal Nose Exam Mouth Exam: Normal Inspection ROR Labs Reviewed Result Diagrams: 02/09/18 07:50 02/09/18 07:50 Laboratory: WBC 13.7 X10^3/uL (3.6-10.0) H 02/09/18 07:50 RBC 4.86 X10^6/uL (4.7-6.0) 02/09/18 07:50 Hgb 14.1 g/dL (13.5-18.0) 02/09/18 07:50 Hct 43.5 % (42.0-54.0) 02/09/18 07:50 MCV 89.5 fL (80.0-100.0) 02/09/18 07:50 MCH 29.0 pg (27.0-34.0) 02/09/18 07:50 MCHC 32.4 g/dL (33.0-35.0) L 02/09/18 07:50 RDW 14.8 % (11.6-16.5) 02/09/18 07:50 Plt Count 311 X10^3/uL (150.0-450.0) 02/09/18 07:50 MPV 8.9 fL (7.4-11.0) 02/09/18 07:50 Neut % (Auto) 77.1 % (42.0-75.0) H 02/09/18 07:50 Lymph % (Auto) 18.4 % (21.0-51.0) L 02/09/18 07:50 [place] % (Auto) 3.5 % (0.0-13.0) 02/09/18 07:50 Eos % (Auto) 0.1 % (0.9-2.9) L 02/09/18 07:50 Baso % (Auto) 0.9 % (0.2-1.0) 02/09/18 07:50 Neut # (Auto) 10.6 x10^3/uL (2.2-4.8) H 02/09/18 07:50 Lymph # (Auto) 2.5 X10^3/uL (1.3-2.9) 02/09/18 07:50 [place] # (Auto) 0.5 x10^3/uL (0.3-0.8) 02/09/18 07:50 Eos # (Auto) 0.0 x10^3/uL (0.0-0.2) 02/09/18 07:50 Baso # (Auto) 0.1 X10^3/uL (0.0-0.1) 02/09/18 07:50 Absolute Nucleated RBC 0.0 /100WBC 02/09/18 07:50 Sample Site Rbr 02/09/18 08:12 ABG pH 7.190 (7.35-7.45) L* 02/09/18 08:12 ABG pCO2 31.0 mmHg (35.0-45.0) L 02/09/18 08:12 ABG pO2 99.0 mmHg (80.0-100.0) 02/09/18 08:12 ABG HCO3 11.8 mmol/L (22-26) L* 02/09/18 08:12 ABG O2 Saturation 96.0 % (90-100) 02/09/18 08:12 ABG Base Excess -15.2 mmol/L (-2.0-2.0) L 02/09/18 08:12 Geoff Test N/a 02/09/18 08:12 A-a Gradient 12.0 mmHg 02/09/18 08:12 FiO2 21 02/09/18 08:12 Blood Gas Comments Pt reece well elj 02/09/18 08:12 Sodium 136 mmol/L (136-145) 02/09/18 07:50 Corrected Sodium 144 mmol/L (136-145) 02/09/18 07:50 Potassium 4.5 mmol/L (3.5-5.1) 02/09/18 07:50 Chloride 97 mmol/L (98-107) L 02/09/18 07:50 Carbon Dioxide 10.6 mmol/L (21-32) L* 02/09/18 07:50 BUN 13 mg/dL (7-18) 02/09/18 07:50 Creatinine 1.12 mg/dL (0.70-1.30) 02/09/18 07:50 Est GFR (MDRD) Af Amer > 60 (>60) 02/09/18 07:50 Est GFR (MDRD) Non-Af > 60 (>60) 02/09/18 07:50 Glucose 430 mg/dL (65-99) H 02/09/18 07:50 Lactic Acid 3.5 mmol/L (0.4-2.0) H 02/09/18 07:50 Calcium 10.1 mg/dL (8.5-10.1) 02/09/18 07:50 Corrected Calcium TNP 02/09/18 07:50 Total Bilirubin 0.70 mg/dL (0.2-1.0) 02/09/18 07:50 AST 14 Units/L (15-37) L 02/09/18 07:50 ALT 15 Units/L (12-78) 02/09/18 07:50 Alkaline Phosphatase 104 Units/L (46-116) 02/09/18 07:50 Creatine Kinase 56 Units/L (39-308) 02/09/18 07:50 CK-MB (CK-2) < 1.0 ng/mL (0-4.0) 02/09/18 07:50 CK/CKMB % Calc 1.8 % (<4) 02/09/18 07:50 Troponin I < 0.02 ng/mL (0-1.5) 02/09/18 07:50 Total Protein 8.2 g/dL (6.4-8.2) 02/09/18 07:50 Albumin 3.9 g/dL (3.4-5.0) 02/09/18 07:50 Globulin 4.3 g/dL (2.5-4.5) 02/09/18 07:50 Albumin/Globulin Ratio 0.9 Ratio (1.1-2.1) L 02/09/18 07:50 Acetone, Semi-Quant Moderate (NEGATIVE) H 02/09/18 07:50
[2018-02-09] MEDS ORDERED: SODIUM BICARBONATE 8.4% INJ ADULT IVP ONE (09:00)
[2018-02-09] MEDS ORDERED: PHENERGAN INJ 25 MG IV ONE (09:04)
[2018-02-09] MEDS ORDERED: MORPHINE SULFATE INJ 4 MG IVP ONE (09:10)
[2018-02-09] MEDS ORDERED: MORPHINE SULFATE INJ 4 MG ONE (09:13)
[2018-02-09] MEDS ORDERED: PHENERGAN INJ 25 MG ONE (09:13)
--- NOTE | 2018-02-09 09:20 | DR.HYPOGLY ---
HPI Time Seen Time Seen by Provider: 02/09/18 08:28 PCP Primary Care Physician: KRYS PALMER Complaint Chief Complaint:: EMS OUT TO PT WITH BS > AND EMS STATES PTS BS WAS 400 AND PT C/O NAUSEA AND VOMITTING , UPON ARRIVAL PT IS PALE C/O NAUSEA DARK BROWN VOMIT NOTED IN BAG APPROX 200 ML'S AND , PT PLACED ON TELE HR OF 145 NOTED NO DISTRESS NOTED ,,BR Source History Provided: Patient and EMS Mode of Arrival Mode of Arrival: Stretcher Timing Onset of Chief Complaint: 02/07/18 PMH PMH Past Medical History: Yes Past Medical History: Diabetes Past Surgical History: Yes Surgical History: Other Family History History of Family Medical Conditions: Yes Family Medical History: Diabetes Mellitus, Sudden Cardiac and Hypertension Social History Does patient currently use any type of tobacco product: No Have you used tobacco products in the last 12 months: No Type of Tobacco Use: None Does any household member use tobacco: No Alcohol Use: None Do you use any recreational Drugs:: No Lives With: Family Lives Where: Home infectious screening In the last 2 months have you had wt loss of >10#?: NO Have you had fever, night sweats or hemotysis?: No Have you traveled outside the country in the last 6 months?: No Isolation: Standard PE Vital Signs Vitals: Temperature 96.8 F Pulse Rate [Apical] 137 Pulse Rate 129 Respiratory Rate 18 Blood Pressure [Left Arm] 120/80 Blood Pressure [Right Arm] 130/68 Blood Pressure 129/68 O2 Sat by Pulse Oximetry 100 General Limitations: Physical Limitation General Appearance: Lethargic Eyes Eye exam: EOMI and Other (sunken) Pupils: Regular, Round: Bilateral Sclera/Conjunctival: Normal Inspection: Bilateral ENT ENT Exam: Mucous Membranes Dry Nose Exam: Normal Nose Exam Mouth Exam: Normal Inspection Throat Exam: Normal Inspection Neck Neck Exam: Normal Inspection and Full ROM Respiratory Respiratory Exam: Normal Lung Sounds Bilat Respiratory Exam: Bilateral: Clear to Auscultation Cardiovascular Cardiovascular Exam: Regular Rate and Normal Rhythm Abdominal Exam Abdominal Exam: Normal Inspection, Normal Bowel Sounds (hyperactive) and Soft (depressed) Extremities Extremities Exam: Normal Inspection and Full ROM Back Back Exam: Normal Inspection and Full ROM Neurologic Neurological Exam: Alert, Oriented X3 and CN II-XII Intact Speech: Expressive Aphasia Cranial Nerve Exam: EOM Function (II, III, IV, ): Normal Cerebellar Function: Finger to Nose: Normal Psychiatric Psychiatric Exam: Flat Affect Skin Skin Exam: Warm, Dry, Intact and Pallor; negative Diaphoresis COURSE Treatment Treatment: NS bolus, morphine for analgesia, ROR Labs Reviewed Result Diagrams: 02/09/18 07:50 02/09/18 07:50 Laboratory: WBC 13.7 X10^3/uL (3.6-10.0) H 02/09/18 07:50 RBC 4.86 X10^6/uL (4.7-6.0) 02/09/18 07:50 Hgb 14.1 g/dL (13.5-18.0) 02/09/18 07:50 Hct 43.5 % (42.0-54.0) 02/09/18 07:50 MCV 89.5 fL (80.0-100.0) 02/09/18 07:50 MCH 29.0 pg (27.0-34.0) 02/09/18 07:50 MCHC 32.4 g/dL (33.0-35.0) L 02/09/18 07:50 RDW 14.8 % (11.6-16.5) 02/09/18 07:50 Plt Count 311 X10^3/uL (150.0-450.0) 02/09/18 07:50 MPV 8.9 fL (7.4-11.0) 02/09/18 07:50 Neut % (Auto) 77.1 % (42.0-75.0) H 02/09/18 07:50 Lymph % (Auto) 18.4 % (21.0-51.0) L 02/09/18 07:50 [place] % (Auto) 3.5 % (0.0-13.0) 02/09/18 07:50 Eos % (Auto) 0.1 % (0.9-2.9) L 02/09/18 07:50 Baso % (Auto) 0.9 % (0.2-1.0) 02/09/18 07:50 Neut # (Auto) 10.6 x10^3/uL (2.2-4.8) H 02/09/18 07:50 Lymph # (Auto) 2.5 X10^3/uL (1.3-2.9) 02/09/18 07:50 [place] # (Auto) 0.5 x10^3/uL (0.3-0.8) 02/09/18 07:50 Eos # (Auto) 0.0 x10^3/uL (0.0-0.2) 02/09/18 07:50 Baso # (Auto) 0.1 X10^3/uL (0.0-0.1) 02/09/18 07:50 Absolute Nucleated RBC 0.0 /100WBC 02/09/18 07:50 Sample Site Rbr 02/09/18 08:12 ABG pH 7.190 (7.35-7.45) L* 02/09/18 08:12 ABG pCO2 31.0 mmHg (35.0-45.0) L 02/09/18 08:12 ABG pO2 99.0 mmHg (80.0-100.0) 02/09/18 08:12 ABG HCO3 11.8 mmol/L (22-26) L* 02/09/18 08:12 ABG O2 Saturation 96.0 % (90-100) 02/09/18 08:12 ABG Base Excess -15.2 mmol/L (-2.0-2.0) L 02/09/18 08:12 Geoff Test N/a 02/09/18 08:12 A-a Gradient 12.0 mmHg 02/09/18 08:12 FiO2 21 02/09/18 08:12 Blood Gas Comments Pt reece well elj 02/09/18 08:12 Sodium 136 mmol/L (136-145) 02/09/18 07:50 Corrected Sodium 144 mmol/L (136-145) 02/09/18 07:50 Potassium 4.5 mmol/L (3.5-5.1) 02/09/18 07:50 Chloride 97 mmol/L (98-107) L 02/09/18 07:50 Carbon Dioxide 10.6 mmol/L (21-32) L* 02/09/18 07:50 BUN 13 mg/dL (7-18) 02/09/18 07:50 Creatinine 1.12 mg/dL (0.70-1.30) 02/09/18 07:50 Est GFR (MDRD) Af Amer > 60 (>60) 02/09/18 07:50 Est GFR (MDRD) Non-Af > 60 (>60) 02/09/18 07:50 Glucose 430 mg/dL (65-99) H 02/09/18 07:50 Lactic Acid 3.5 mmol/L (0.4-2.0) H 02/09/18 07:50 Calcium 10.1 mg/dL (8.5-10.1) 02/09/18 07:50 Corrected Calcium TNP 02/09/18 07:50 Total Bilirubin 0.70 mg/dL (0.2-1.0) 02/09/18 07:50 AST 14 Units/L (15-37) L 02/09/18 07:50 ALT 15 Units/L (12-78) 02/09/18 07:50 Alkaline Phosphatase 104 Units/L (46-116) 02/09/18 07:50 Creatine Kinase 56 Units/L (39-308) 02/09/18 07:50 CK-MB (CK-2) < 1.0 ng/mL (0-4.0) 02/09/18 07:50 CK/CKMB % Calc 1.8 % (<4) 02/09/18 07:50 Troponin I < 0.02 ng/mL (0-1.5) 02/09/18 07:50 Total Protein 8.2 g/dL (6.4-8.2) 02/09/18 07:50 Albumin 3.9 g/dL (3.4-5.0) 02/09/18 07:50 Globulin 4.3 g/dL (2.5-4.5) 02/09/18 07:50 Albumin/Globulin Ratio 0.9 Ratio (1.1-2.1) L 02/09/18 07:50 Acetone, Semi-Quant Moderate (NEGATIVE) H 02/09/18 07:50
[2018-02-09] MEDS ORDERED: HumuLIN R SUBCUT PRN (09:25)
[2018-02-09] MEDS ORDERED: PROTONIC IV PRN (09:39)
[2018-02-09] MEDS ORDERED: NS 1000 ML 1,000 ML IV SCH (10:00)
[2018-02-09] MEDS ORDERED: CATAPRES-TTS-2 TD SCH (10:27)
[2018-02-09] MEDS ORDERED: LINACLOTIDE 290 MCG PO SCH (10:27)
[2018-02-09] MEDS ORDERED: INSULIN ASPART U subcut PRN (10:27)
[2018-02-09 10:36] VITALS: BMI 18.8
[2018-02-09 10:37] LABS: BLOOD UREA NITROGEN 12 mg/dL (7-18); CALCIUM 9.3 mg/dL (8.5-10.1); CHLORIDE 101 mmol/L (98-107); COR NA(FOR HYPERGLY) 150 mmol/L (136-145); CREATININE 1.12 mg/dL (0.70-1.30); SODIUM 141 mmol/L (136-145); eGFR NON BLACK RACES > 60 (>60)
[2018-02-09 10:46] LABS: CARBON DIOXIDE 12.5 mmol/L (21-32)
[2018-02-09] MEDS: ZOFRAN INJ 4 MG VIAL IVP PRN ×2 (10:47→21:14)
[2018-02-09] MEDS ORDERED: NS 1000 ML 1,000 ML with SODIUM BICARBONATE 8.4% INJ ADULT 50 ML IV SCH ×2 (11:00)
[2018-02-09 11:30] LABS: BILIRUBIN,URINE NEGATIVE (NEGATIVE); BLOOD/HEMOGLOBIN,URINE 2+ (NEGATIVE); GLUCOSE, URINE 4+ (NEGATIVE); KETONES,URINE 4+ (NEGATIVE); LEUKOCYTE ESTERASE ,URINE NEGATIVE (NEGATIVE); NITRITES,URINE NEGATIVE (NEGATIVE); PROTEIN,URINE NEGATIVE (NEGATIVE); UROBILINOGEN,URINE NORMAL (NORMAL)
[2018-02-09] MEDS ORDERED: XANAX PO PRN (11:30)
[2018-02-09 11:42] LABS: APPEARANCE,URINE CLEAR (CLEAR); BACTERIA,URINE NEGATIVE /HPF (NEGATIVE); COLOR,URINE YELLOW (YELLOW); SQUAMOUS EPITHELIAL CELL,UR RARE /HPF (NEGATIVE)
[2018-02-09] MEDS ORDERED: MORPHINE SULFATE INJ 2 MG INJ IVP PRN (11:54)
[2018-02-09] MEDS ORDERED: PHENERGAN INJ 25 MG IM PRN (11:54)
[2018-02-09] MEDS ORDERED: NS 100 ML IV 100 ML IV ONE (12:04)
[2018-02-09] MEDS ORDERED: HumuLIN R ONE (12:06)
[2018-02-09] MEDS ORDERED: NS 1000 ML 1,000 ML with SODIUM BICARBONATE 8.4% INJ ADULT 100 ML IV SCH ×2 (13:00)
[2018-02-09] MEDS: NEURONTIN CAP 100 MG PO SCH ×2 (13:24→21:01)
[2018-02-09 13:59] LABS: ABG BASE EXCESS -13.4 mmol/L (-2.0-2.0)
[2018-02-09 14:00] LABS: ABG HCO3 11.9 mmol/L (22-26); FRACTIONATED INSPIRED OXYGEN 21
[2018-02-09 14:19] LABS: BLOOD UREA NITROGEN 10 mg/dL (7-18); CALCIUM 8.4 mg/dL (8.5-10.1); CHLORIDE 107 mmol/L (98-107); COR NA(FOR HYPERGLY) 153 mmol/L (136-145); CREATININE 1.26 mg/dL (0.70-1.30); SODIUM 147 mmol/L (136-145); eGFR NON BLACK RACES > 60 (>60)
[2018-02-09 14:23] LABS: CARBON DIOXIDE 11.2 mmol/L (21-32)
[2018-02-09] MEDS: PHENERGAN INJ 25 MG IV PRN (15:20)
[2018-02-09] MEDS ORDERED: NS 1/2 1000 ML IV 1,000 ML IV ONE ×2 (15:51→16:04)
[2018-02-09] MEDS ORDERED: NS 1/2 1000 ML IV 1,000 ML IV PRN (15:56)
[2018-02-09] MEDS: PROTONIX INJ 40 MG VIAL IVP SCH ×2 (16:23→20:59)
[2018-02-09] MEDS: NS 1000 ML 1,000 ML IV PRN (17:06)
[2018-02-09] MEDS: DILAUDID INJ IVP PRN ×2 (17:31→21:35)
[2018-02-09 18:29] LABS: BLOOD UREA NITROGEN 9 mg/dL (7-18); CALCIUM 8.4 mg/dL (8.5-10.1); CARBON DIOXIDE 17.7 mmol/L (21-32); CHLORIDE 110 mmol/L (98-107); COR NA(FOR HYPERGLY) 148 mmol/L (136-145); CREATININE 1.13 mg/dL (0.70-1.30); SODIUM 146 mmol/L (136-145); eGFR NON BLACK RACES > 60 (>60)
[2018-02-09] MEDS ORDERED: TYLENOL 325 MG TAB PO PRN (19:51)
[2018-02-09] MEDS: SNACK - Diabetic Appropriate PO SCH (20:37)
[2018-02-09] MEDS ORDERED: LINZESS PO SCH (21:00)
[2018-02-09] MEDS ORDERED: PATIENT'S HOME MEDICATION (Alprazolam [Alprazolam] 1 TAB) PO SCH (21:00)
[2018-02-09] MEDS: LOPRESSOR TAB 25 MG PO SCH (21:00)
[2018-02-09] MEDS ORDERED: DEXTROAMPHETAMINE AMPHETAMINE PO SCH (21:00)
[2018-02-09] MEDS ORDERED: METHADONE HCL PO SCH (21:00)
[2018-02-09] MEDS: KLONOPIN TAB 1 MG PO SCH (21:01)
[2018-02-09] MEDS: LEVEMIR SC SCH (21:11)
[2018-02-09] MEDS: COLACE CAP 100 MG PO SCH (21:25)
[2018-02-09 21:35] LABS: ABG BASE EXCESS -3.9 mmol/L (-2.0-2.0); ABG HCO3 20.8 mmol/L (22-26); FRACTIONATED INSPIRED OXYGEN 21
[2018-02-09 22:44] LABS: BLOOD UREA NITROGEN 9 mg/dL (7-18); CALCIUM 8.5 mg/dL (8.5-10.1); CARBON DIOXIDE 22.7 mmol/L (21-32); CHLORIDE 111 mmol/L (98-107); COR NA(FOR HYPERGLY) 148 mmol/L (136-145); CREATININE 1.04 mg/dL (0.70-1.30); SODIUM 147 mmol/L (136-145); eGFR NON BLACK RACES > 60 (>60)
[2018-02-10] MEDS ORDERED: NS 1/2 1000 ML IV 1,000 ML IV ONE ×2 (00:21→21:59)
[2018-02-10 02:41] LABS: BLOOD UREA NITROGEN 9 mg/dL (7-18); CALCIUM 7.6 mg/dL (8.5-10.1); CARBON DIOXIDE 23.3 mmol/L (21-32); CHLORIDE 113 mmol/L (98-107); CREATININE 0.84 mg/dL (0.70-1.30); SODIUM 147 mmol/L (136-145); eGFR NON BLACK RACES > 60 (>60)
[2018-02-10] MEDS ORDERED: D50W ABBOJECT SYR IV ONE (03:31)
[2018-02-10] MEDS ORDERED: POTASSIUM CHL 40 MEQ/NS 0.45% 500 ML IV PRN (05:50)
[2018-02-10] MEDS ORDERED: MICRO K EXTEN CAP 10 MEQ PO PRN (05:50)
[2018-02-10] MEDS ORDERED: POTASSIUM CHL 60 MEQ/NS 0.45% 500 ML IV PRN (05:50)
[2018-02-10] MEDS ORDERED: KLOR-CON PO PRN (05:50)
[2018-02-10] MEDS ORDERED: K-DUR TAB 20 MEQ PO PRN (05:50)
[2018-02-10] MEDS ORDERED: POTASSIUM CHLORIDE LIQ 20 MEQ UDC PO PRN (05:50)
[2018-02-10] MEDS ORDERED: K-RIDER 10 MEQ/NS 100 ML 10 MEQ/100 ML BAG IV PRN (05:50)
[2018-02-10] MEDS: NEURONTIN CAP 100 MG PO SCH ×3 (06:06→22:09)
[2018-02-10 06:14] LABS: BASOPHILS % (AUTO) 0.2 % (0.2-1.0); HEMATOCRIT 34.6 % (42.0-54.0); HEMOGLOBIN 11.7 g/dL (13.5-18.0); LYMPHOCYTES # (AUTO) 3.1 X10^3/uL (1.3-2.9); LYMPHOCYTES % (AUTO) 19.8 % (21.0-51.0); MEAN CORPUSCULAR HEMOGLOBIN 29.3 pg (27.0-34.0); MEAN CORPUSCULAR HGB CONC 33.9 g/dL (33.0-35.0); MEAN CORPUSCULAR VOLUME 86.5 fL (80.0-100.0); MEAN PLATELET VOLUME 8.7 fL (7.4-11.0); MONOCYTES # (AUTO) 1.7 x10^3/uL (0.3-0.8); MONOCYTES % (AUTO) 10.7 % (0.0-13.0); NEUTROPHILS % (AUTO) 69.3 % (42.0-75.0); PLATELET COUNT 242 X10^3/uL (150.0-450.0); RED CELL DISTRIBUTION WIDTH 14.6 % (11.6-16.5); WHITE BLOOD COUNT 15.9 X10^3/uL (3.6-10.0)
[2018-02-10] MEDS: DILAUDID INJ IVP PRN (06:42)
[2018-02-10] MEDS: ZOFRAN INJ 4 MG VIAL IVP PRN (06:43)
[2018-02-10 07:07] LABS: ALANINE AMINOTRANSFERASE 13 Units/L (12-78); ALBUMIN 2.7 g/dL (3.4-5.0); ALKALINE PHOSPHATASE 69 Units/L (46-116); ASPARTATE AMINO TRANSFERASE 19 Units/L (15-37); BLOOD UREA NITROGEN 8 mg/dL (7-18); CALCIUM 8.1 mg/dL (8.5-10.1); CARBON DIOXIDE 22.4 mmol/L (21-32); CHLORIDE 111 mmol/L (98-107); COR CA(FOR HYPOALB) 9.1 mg/dL (8.5-10.1); COR NA(FOR HYPERGLY) 146 mmol/L (136-145); CREATININE 0.86 mg/dL (0.70-1.30); SODIUM 145 mmol/L (136-145); TOTAL PROTEIN 5.9 g/dL (6.4-8.2); eGFR NON BLACK RACES > 60 (>60)
[2018-02-10] MEDS: LINZESS PO SCH (08:47)
[2018-02-10] MEDS: PROCARDIA XL PO SCH (08:47)
[2018-02-10] MEDS: LOPRESSOR TAB 25 MG PO SCH ×2 (08:47→21:30)
[2018-02-10] MEDS: PROTONIX INJ 40 MG VIAL IVP SCH ×2 (08:47→21:30)
[2018-02-10] MEDS: MAGNESIUM SULFATE 1 GRAM/100 mL PREMIX 1 GM/100 ML BAG IV PRN ×6 (08:47→13:41)
[2018-02-10] MEDS: NS 1000 ML 1,000 ML IV PRN (08:48)
[2018-02-10] MEDS ORDERED: KLONOPIN TAB 1 MG PO SCH (09:00)
[2018-02-10 10:23] LABS: BLOOD UREA NITROGEN 5 mg/dL (7-18); CALCIUM 8.2 mg/dL (8.5-10.1); CARBON DIOXIDE 25.5 mmol/L (21-32); CHLORIDE 109 mmol/L (98-107); COR NA(FOR HYPERGLY) 143 mmol/L (136-145); CREATININE 0.77 mg/dL (0.70-1.30); SODIUM 142 mmol/L (136-145); eGFR NON BLACK RACES > 60 (>60)
[2018-02-10] MEDS ORDERED: NS 1000 ML 1,000 ML IV PRN (12:04)
[2018-02-10] MEDS ORDERED: NS 1/2 1000 ML IV 1,000 ML IV PRN (12:05)
[2018-02-10] MEDS: METHADONE HCL PO SCH ×3 (12:18→21:30)
--- NOTE | 2018-02-10 13:06 | PCM.PROG ---
Progress Note - Progress Note for Day of Date of Exam: 02/10/18 - Subjective Subjective: 37 WM ER ADMISSION WITH DKA, CURRENTLY D/C FROM INSULIN DRIP. BS ON CMP 130, NEGATIVE ACETONE, CO2 25.5, BUN 5 CREAT 0.77. PT WBC 15.9. PT CO CHRONIC PAIN, LOWER BACK AND LEG PAIN. PT ON METHADONE AT HOME, D/C IV NARCOTICS, RESTART PO PAIN CONTROL, INCREASE PO INTAKE TOLERATED, REPEAT BS AC AND HS, AM LABS - Past Medical Family Social History Past Med/Fam/Surg Hx: No changes since H&P Allergies: Allergies No Known Drug Allergies Allergy (Verified 02/09/18 07:46) - Review of Systems ROS: No change since H&P - Vital Signs and I&O's Vital Signs: Temperature 98.9 F Pulse Rate [Apical] 137 Pulse Rate 83 Respiratory Rate 13 Blood Pressure [Left Arm] 120/80 Blood Pressure [Right Arm] 130/68 Blood Pressure 110/70 O2 Sat by Pulse Oximetry 97 Intake and Output: Intake & Output 02/08/18 02/09/18 02/10/18 02/11/18 11:59 11:59 11:59 11:59 Intake Total 6967 / 6967 Output Total 400 / 400 4000 / 4000 Balance -400 / -400 2967 / 2967 - Physical Exam Oriented: Normal Eyes: Normal Ear: Normal Nose: Normal Throat: Normal Respiratory: Normal Cardiovascular: Normal : Normal Auscultation: Bowel Sounds: Normal Palpation: Normal Tenderness: Epigastric, Mild Skin: Normal Musculoskeletal: Back:Thoracic Psychiatric: Normal Mood Description: Calm Speech Pattern: Clear, Appropriate - Laboratory and Diagnostics Result Diagrams: 02/10/18 05:15 02/10/18 09:57 Labs: Laboratory WBC 15.9 X10^3/uL (3.6-10.0) H 02/10/18 05:15 RBC 4.00 X10^6/uL (4.7-6.0) L 02/10/18 05:15 Hgb 11.7 g/dL (13.5-18.0) L D 02/10/18 05:15 Hct 34.6 % (42.0-54.0) L 02/10/18 05:15 MCV 86.5 fL (80.0-100.0) 02/10/18 05:15 MCH 29.3 pg (27.0-34.0) 02/10/18 05:15 MCHC 33.9 g/dL (33.0-35.0) 02/10/18 05:15 RDW 14.6 % (11.6-16.5) 02/10/18 05:15 Plt Count 242 X10^3/uL (150.0-450.0) 02/10/18 05:15 MPV 8.7 fL (7.4-11.0) 02/10/18 05:15 Neut % (Auto) 69.3 % (42.0-75.0) 02/10/18 05:15 Lymph % (Auto) 19.8 % (21.0-51.0) L 02/10/18 05:15 [place] % (Auto) 10.7 % (0.0-13.0) 02/10/18 05:15 Eos % (Auto) 0.0 % (0.9-2.9) L 02/10/18 05:15 Baso % (Auto) 0.2 % (0.2-1.0) 02/10/18 05:15 Neut # (Auto) 11.0 x10^3/uL (2.2-4.8) H 02/10/18 05:15 Lymph # (Auto) 3.1 X10^3/uL (1.3-2.9) H 02/10/18 05:15 [place] # (Auto) 1.7 x10^3/uL (0.3-0.8) H 02/10/18 05:15 Eos # (Auto) 0.0 x10^3/uL (0.0-0.2) 02/10/18 05:15 Baso # (Auto) 0.0 X10^3/uL (0.0-0.1) 02/10/18 05:15 Absolute Nucleated RBC 0.0 /100WBC 02/10/18 05:15 Sample Site Right brachial 02/09/18 21:25 ABG pH 7.370 (7.35-7.45) 02/09/18 21:25 ABG pCO2 36.0 mmHg (35.0-45.0) 02/09/18 21:25 ABG pO2 80.0 mmHg (80.0-100.0) 02/09/18 21:25 ABG HCO3 20.8 mmol/L (22-26) L 02/09/18 21:25 ABG O2 Saturation 95.0 % (90-100) 02/09/18 21:25 ABG Base Excess -3.9 mmol/L (-2.0-2.0) L 02/09/18 21:25 Geoff Test Na 02/09/18 21:25 A-a Gradient 25.0 mmHg 02/09/18 21:25 FiO2 21 02/09/18 21:25 Blood Gas Comments Marva well jts 02/09/18 21:25 Sodium 142 mmol/L (136-145) 02/10/18 09:57 Corrected Sodium 143 mmol/L (136-145) 02/10/18 09:57 Potassium 3.5 mmol/L (3.5-5.1) 02/10/18 09:57 Chloride 109 mmol/L (98-107) H 02/10/18 09:57 Carbon Dioxide 25.5 mmol/L (21-32) 02/10/18 09:57 BUN 5 mg/dL (7-18) L 02/10/18 09:57 Creatinine 0.77 mg/dL (0.70-1.30) 02/10/18 09:57 Est GFR (MDRD) Af Amer > 60 (>60) 02/10/18 09:57 Est GFR (MDRD) Non-Af > 60 (>60) 02/10/18 09:57 Glucose 130 mg/dL (65-99) H 02/10/18 09:57 POC Glucose (mg/dL) 129 mg/dL (65-99) H 02/10/18 09:43 Lactic Acid 3.5 mmol/L (0.4-2.0) H 02/09/18 07:50 Calcium 8.2 mg/dL (8.5-10.1) L 02/10/18 09:57 Corrected Calcium 9.1 mg/dL (8.5-10.1) 02/10/18 05:15 Magnesium 1.1 mg/dL (1.7-2.9) L 02/10/18 05:56 Total Bilirubin 0.30 mg/dL (0.2-1.0) 02/10/18 05:15 AST 19 Units/L (15-37) 02/10/18 05:15 ALT 13 Units/L (12-78) 02/10/18 05:15 Alkaline Phosphatase 69 Units/L (46-116) 02/10/18 05:15 Creatine Kinase 56 Units/L (39-308) 02/09/18 07:50 CK-MB (CK-2) < 1.0 ng/mL (0-4.0) 02/09/18 07:50 CK/CKMB % Calc 1.8 % (<4) 02/09/18 07:50 Troponin I < 0.02 ng/mL (0-1.5) 02/09/18 07:50 Total Protein 5.9 g/dL (6.4-8.2) L 02/10/18 05:15 Albumin 2.7 g/dL (3.4-5.0) L 02/10/18 05:15 Globulin 3.2 g/dL (2.5-4.5) 02/10/18 05:15 Albumin/Globulin Ratio 0.8 Ratio (1.1-2.1) L 02/10/18 05:15 Specimen Type Random urine 02/09/18 11:23 Urine Color Yellow (YELLOW) 02/09/18 11:23 Urine Appearance Clear (CLEAR) 02/09/18 11:23 Urine pH 5.0 (5.0 - 8.0) 02/09/18 11:23 Ur Specific [place] 1.020 (1.000-1.030) 02/09/18 11:23 Urine Protein Negative (NEGATIVE) 02/09/18 11:23 Urine Glucose (UA) 4+ (NEGATIVE) 02/09/18 11:23 Urine Ketones 4+ (NEGATIVE) 02/09/18 11:23 Urine Occult Blood 2+ (NEGATIVE) 02/09/18 11:23 Urine Nitrite Negative (NEGATIVE) 02/09/18 11:23 Urine Bilirubin Negative (NEGATIVE) 02/09/18 11:23 Urine Urobilinogen Normal (NORMAL) 02/09/18 11:23 Ur Leukocyte Esterase Negative (NEGATIVE) 02/09/18 11:23 Urine RBC 3-5 /HPF (NONE SEEN) 02/09/18 11:23 Urine WBC 0-2 /HPF (NONE SEEN) 02/09/18 11:23 Ur Squamous Epith Cells Rare /HPF (NEGATIVE) 02/09/18 11:23 Urine Bacteria Negative /HPF (NEGATIVE) 02/09/18 11:23 Ur Culture Indicated? No/not indicated 02/09/18 11:23 Urine Opiates Screen Negative (NEG=<300) 02/09/18 11:23 Urine Methadone Screen Positive (NEG=<300) 02/09/18 11:23 Ur Barbiturates Screen Negative (NEG=<200) 02/09/18 11:23 Ur Phencyclidine Scrn Negative (NEG=<25) 02/09/18 11:23 Ur Amphetamines Screen Positive (NEG=<1000) 02/09/18 11:23 U Benzodiazepines Scrn Positive (NEG=<200) 02/09/18 11:23 Urine Cocaine Screen Negative (NEG=<300) 02/09/18 11:23 U Marijuana (THC) Screen Negative (NEG=<50) 02/09/18 11:23 Acetone, Semi-Quant Negative (NEGATIVE) 02/10/18 09:57 - Plan (1) DKA (diabetic ketoacidoses) Status: Acute Qualifiers: Diabetes mellitus type: type 2 Diabetes mellitus complication detail: without coma Qualified Code(s): E11.10 - Type 2 diabetes mellitus with ketoacidosis without coma Plan: NEGATIVE ACETONE, CONTROLLED GLUCOSE. D/C INSULIN DRIP, ADVANCE DIET TOLERATED. PAIN CONTROL, I & OS, CARDIAC MONITORING. CO2 NORMAL THIS AM, REPEAT BS AND HS, AM LABS (2) Hypertension Status: Acute Qualifiers: Hypertension type: essential hypertension Qualified Code(s): I10 - Essential (primary) hypertension (3) GERD (gastroesophageal reflux disease) Status: Chronic Qualifiers: Esophagitis presence: esophagitis presence not specified Qualified Code(s): K21.9 - Gastro-esophageal reflux disease without esophagitis (4) Low back pain Status: Chronic
[2018-02-10] MEDS: HumuLIN R SUBCUT PRN (16:20)
[2018-02-10] MEDS: COLACE CAP 100 MG PO SCH (21:30)
[2018-02-10] MEDS: LEVEMIR SC SCH (21:30)
[2018-02-10] MEDS: KLONOPIN TAB 1 MG PO SCH (21:30)
[2018-02-10] MEDS: SNACK - Diabetic Appropriate PO SCH (22:01)
[2018-02-10] MEDS: PHENERGAN INJ 25 MG IV PRN (22:09)
[2018-02-11 05:56] LABS: BASOPHILS % (AUTO) 0.3 % (0.2-1.0); EOSINOPHILS # (AUTO) 0.1 x10^3/uL (0.0-0.2); EOSINOPHILS % (AUTO) 0.7 % (0.9-2.9); HEMATOCRIT 30.4 % (42.0-54.0); HEMOGLOBIN 10.3 g/dL (13.5-18.0); LYMPHOCYTES # (AUTO) 4.8 X10^3/uL (1.3-2.9); LYMPHOCYTES % (AUTO) 43.2 % (21.0-51.0); MEAN CORPUSCULAR HGB CONC 33.8 g/dL (33.0-35.0); MEAN CORPUSCULAR VOLUME 85.8 fL (80.0-100.0); MEAN PLATELET VOLUME 8.4 fL (7.4-11.0); MONOCYTES # (AUTO) 0.9 x10^3/uL (0.3-0.8); MONOCYTES % (AUTO) 7.9 % (0.0-13.0); NEUTROPHILS # (AUTO) 5.3 x10^3/uL (2.2-4.8); NEUTROPHILS % (AUTO) 47.9 % (42.0-75.0); PLATELET COUNT 201 X10^3/uL (150.0-450.0); RED BLOOD COUNT 3.54 X10^6/uL (4.7-6.0); RED CELL DISTRIBUTION WIDTH 14.7 % (11.6-16.5); WHITE BLOOD COUNT 11.1 X10^3/uL (3.6-10.0)
[2018-02-11] MEDS: NEURONTIN CAP 100 MG PO SCH ×2 (06:03→14:04)
[2018-02-11 06:17] LABS: ALANINE AMINOTRANSFERASE 14 Units/L (12-78); ALBUMIN 2.5 g/dL (3.4-5.0); ALKALINE PHOSPHATASE 60 Units/L (46-116); ASPARTATE AMINO TRANSFERASE 16 Units/L (15-37); BLOOD UREA NITROGEN 3 mg/dL (7-18); CALCIUM 8.2 mg/dL (8.5-10.1); CARBON DIOXIDE 29.9 mmol/L (21-32); CHLORIDE 108 mmol/L (98-107); COR CA(FOR HYPOALB) 9.4 mg/dL (8.5-10.1); CREATININE 0.59 mg/dL (0.70-1.30); MAGNESIUM 1.8 mg/dL (1.7-2.9); SODIUM 142 mmol/L (136-145); TOTAL PROTEIN 5.3 g/dL (6.4-8.2); eGFR NON BLACK RACES > 60 (>60)
--- NOTE | 2018-02-11 08:25 | DR.HYPOGLY ---
HPI Time Seen Time Seen by Provider: 02/09/18 08:28 PCP Primary Care Physician: KRYS PALMER Complaint Chief Complaint:: EMS OUT TO PT WITH BS > AND EMS STATES PTS BS WAS 400 AND PT C/O NAUSEA AND VOMITTING , UPON ARRIVAL PT IS PALE C/O NAUSEA DARK BROWN VOMIT NOTED IN BAG APPROX 200 ML'S AND , PT PLACED ON TELE HR OF 145 NOTED NO DISTRESS NOTED ,,BR Source History Provided: Patient and EMS Mode of Arrival Mode of Arrival: Stretcher Timing Onset of Chief Complaint: 02/07/18 PMH PMH Past Medical History: Yes Past Medical History: Diabetes Past Surgical History: Yes Surgical History: Other Family History History of Family Medical Conditions: Yes Family Medical History: Diabetes Mellitus, Sudden Cardiac and Hypertension Social History Does patient currently use any type of tobacco product: No Have you used tobacco products in the last 12 months: No Type of Tobacco Use: None Does any household member use tobacco: No Alcohol Use: None Do you use any recreational Drugs:: No Lives With: Family Lives Where: Home infectious screening In the last 2 months have you had wt loss of >10#?: NO Have you had fever, night sweats or hemotysis?: No Have you traveled outside the country in the last 6 months?: No Isolation: Standard PE Vital Signs Vitals: Temperature 98.2 F Pulse Rate [Apical] 137 Pulse Rate 67 Respiratory Rate 11 Blood Pressure [Left Arm] 120/80 Blood Pressure [Right Arm] 130/68 Blood Pressure 88/57 O2 Sat by Pulse Oximetry 92 General Limitations: No Limitations General Appearance: Obtunded Eyes Eye exam: Normal Appearance, PERRL and EOMI Pupils: Regular, Round: Bilateral Sclera/Conjunctival: Normal Inspection: Bilateral ENT ENT Exam: Normal Exam and Mucous Membranes Dry Nose Exam: Normal Nose Exam Mouth Exam: Normal Inspection Throat Exam: Normal Inspection Chest Chest Inspection: Normal Inspection and Symmetric Chest Wall Rise Respiratory Respiratory Exam: Bilateral: Clear to Auscultation Cardiovascular Cardiovascular Exam: Regular Rate Abdominal Exam Abdominal Exam: Normal Inspection, Soft and Tenderness; negative Rebound Abdominal Tenderness: Diffuse Back Back Exam: Normal Inspection Neurologic Neurological Exam: Alert, Oriented X3 and CN II-XII Intact Patient Oriented To: Person, Place and Time Cerebellar Function: Finger to Nose: Normal Psychiatric Psychiatric Exam: Depressed and Flat Affect Skin Skin Exam: Warm, Dry and Intact ROR Labs Reviewed Result Diagrams: 02/11/18 05:12 10/14/18 05:12 Laboratory: 02/09/18 08:28 Blood Blood Culture - Preliminary 02/09/18 07:50 Blood Blood Culture - Preliminary WBC 11.1 X10^3/uL (3.6-10.0) H 02/11/18 05:12 RBC 3.54 X10^6/uL (4.7-6.0) L 02/11/18 05:12 Hgb 10.3 g/dL (13.5-18.0) L 02/11/18 05:12 Hct 30.4 % (42.0-54.0) L 02/11/18 05:12 MCV 85.8 fL (80.0-100.0) 02/11/18 05:12 MCH 29.0 pg (27.0-34.0) 02/11/18 05:12 MCHC 33.8 g/dL (33.0-35.0) 02/11/18 05:12 RDW 14.7 % (11.6-16.5) 02/11/18 05:12 Plt Count 201 X10^3/uL (150.0-450.0) 02/11/18 05:12 MPV 8.4 fL (7.4-11.0) 02/11/18 05:12 Neut % (Auto) 47.9 % (42.0-75.0) 02/11/18 05:12 Lymph % (Auto) 43.2 % (21.0-51.0) 02/11/18 05:12 [place] % (Auto) 7.9 % (0.0-13.0) 02/11/18 05:12 Eos % (Auto) 0.7 % (0.9-2.9) L 02/11/18 05:12 Baso % (Auto) 0.3 % (0.2-1.0) 02/11/18 05:12 Neut # (Auto) 5.3 x10^3/uL (2.2-4.8) H 02/11/18 05:12 Lymph # (Auto) 4.8 X10^3/uL (1.3-2.9) H 02/11/18 05:12 [place] # (Auto) 0.9 x10^3/uL (0.3-0.8) H 02/11/18 05:12 Eos # (Auto) 0.1 x10^3/uL (0.0-0.2) 02/11/18 05:12 Baso # (Auto) 0.0 X10^3/uL (0.0-0.1) 02/11/18 05:12 Absolute Nucleated RBC 0.0 /100WBC 02/11/18 05:12 Sample Site Right brachial 02/09/18 21:25 ABG pH 7.370 (7.35-7.45) 02/09/18 21:25 ABG pCO2 36.0 mmHg (35.0-45.0) 02/09/18 21:25 ABG pO2 80.0 mmHg (80.0-100.0) 02/09/18 21:25 ABG HCO3 20.8 mmol/L (22-26) L 02/09/18 21:25 ABG O2 Saturation 95.0 % (90-100) 02/09/18 21:25 ABG Base Excess -3.9 mmol/L (-2.0-2.0) L 02/09/18 21:25 Geoff Test Na 02/09/18 21:25 A-a Gradient 25.0 mmHg 02/09/18 21:25 FiO2 21 02/09/18 21:25 Blood Gas Comments Marva well jts 02/09/18 21:25 Sodium 142 mmol/L (136-145) 02/11/18 05:12 Corrected Sodium TNP 02/11/18 05:12 Potassium 3.2 mmol/L (3.5-5.1) L 02/11/18 05:12 Chloride 108 mmol/L (98-107) H 02/11/18 05:12 Carbon Dioxide 29.9 mmol/L (21-32) 02/11/18 05:12 BUN 3 mg/dL (7-18) L 02/11/18 05:12 Creatinine 0.59 mg/dL (0.70-1.30) L 02/11/18 05:12 Est GFR (MDRD) Af Amer > 60 (>60) 02/11/18 05:12 Est GFR (MDRD) Non-Af > 60 (>60) 02/11/18 05:12 Glucose 94 mg/dL (65-99) 02/11/18 05:12 POC Glucose (mg/dL) 129 mg/dL (65-99) H 02/10/18 09:43 Lactic Acid 3.5 mmol/L (0.4-2.0) H 02/09/18 07:50 Calcium 8.2 mg/dL (8.5-10.1) L 02/11/18 05:12 Corrected Calcium 9.4 mg/dL (8.5-10.1) 02/11/18 05:12 Magnesium 1.8 mg/dL (1.7-2.9) 02/11/18 05:12 Total Bilirubin 0.40 mg/dL (0.2-1.0) 02/11/18 05:12 AST 16 Units/L (15-37) 02/11/18 05:12 ALT 14 Units/L (12-78) 02/11/18 05:12 Alkaline Phosphatase 60 Units/L (46-116) 02/11/18 05:12 Creatine Kinase 56 Units/L (39-308) 02/09/18 07:50 CK-MB (CK-2) < 1.0 ng/mL (0-4.0) 02/09/18 07:50 CK/CKMB % Calc 1.8 % (<4) 02/09/18 07:50 Troponin I < 0.02 ng/mL (0-1.5) 02/09/18 07:50 Total Protein 5.3 g/dL (6.4-8.2) L 02/11/18 05:12 Albumin 2.5 g/dL (3.4-5.0) L 02/11/18 05:12 Globulin 2.8 g/dL (2.5-4.5) 02/11/18 05:12 Albumin/Globulin Ratio 0.9 Ratio (1.1-2.1) L 02/11/18 05:12 Specimen Type Random urine 02/09/18 11:23 Urine Color Yellow (YELLOW) 02/09/18 11:23 Urine Appearance Clear (CLEAR) 02/09/18 11:23 Urine pH 5.0 (5.0 - 8.0) 02/09/18 11:23 Ur Specific [place] 1.020 (1.000-1.030) 02/09/18 11:23 Urine Protein Negative (NEGATIVE) 02/09/18 11:23 Urine Glucose (UA) 4+ (NEGATIVE) 02/09/18 11:23 Urine Ketones 4+ (NEGATIVE) 02/09/18 11:23 Urine Occult Blood 2+ (NEGATIVE) 02/09/18 11:23 Urine Nitrite Negative (NEGATIVE) 02/09/18 11:23 Urine Bilirubin Negative (NEGATIVE) 02/09/18 11:23 Urine Urobilinogen Normal (NORMAL) 02/09/18 11:23 Ur Leukocyte Esterase Negative (NEGATIVE) 02/09/18 11:23 Urine RBC 3-5 /HPF (NONE SEEN) 02/09/18 11:23 Urine WBC 0-2 /HPF (NONE SEEN) 02/09/18 11:23 Ur Squamous Epith Cells Rare /HPF (NEGATIVE) 02/09/18 11:23 Urine Bacteria Negative /HPF (NEGATIVE) 02/09/18 11:23 Ur Culture Indicated? No/not indicated 02/09/18 11:23 Urine Opiates Screen Negative (NEG=<300) 02/09/18 11:23 Urine Methadone Screen Positive (NEG=<300) 02/09/18 11:23 Ur Barbiturates Screen Negative (NEG=<200) 02/09/18 11:23 Ur Phencyclidine Scrn Negative (NEG=<25) 02/09/18 11:23 Ur Amphetamines Screen Positive (NEG=<1000) 02/09/18 11:23 U Benzodiazepines Scrn Positive (NEG=<200) 02/09/18 11:23 Urine Cocaine Screen Negative (NEG=<300) 02/09/18 11:23 U Marijuana (THC) Screen Negative (NEG=<50) 02/09/18 11:23 Acetone, Semi-Quant Negative (NEGATIVE) 02/10/18 09:57 Diagnosis Discharge Problem: Acute hypokalemia, Metabolic acidosis, Gastritis
[2018-02-11] MEDS: LINZESS PO SCH (08:27)
[2018-02-11] MEDS: PROTONIX INJ 40 MG VIAL IVP SCH (08:27)
[2018-02-11] MEDS: METHADONE HCL PO SCH ×2 (08:27→13:34)
[2018-02-11] MEDS: HumuLIN R SUBCUT PRN (11:48)
[2018-02-11] MEDS: PROCARDIA XL PO SCH (11:56)
[2018-02-11] MEDS: LOPRESSOR TAB 25 MG PO SCH (11:56)
--- NOTE | 2018-02-11 13:46 | RAD ---
Examination: KUB History: Abdominal pain Comparison 01/14/2018 Findings: The intestinal gas pattern is unremarkable. There is no evidence for visceral enlargement, mass formation or ascites. Impression: No acute or significant findings. Reported By:
[2018-02-11 14:05] VITALS: BP 94/58
--- NOTE | 2018-02-27 10:03 | PCM.DCPLAN ---
Discharge Summary - Admission Date Date of Admission: 02/09/18 - Discharge Date Discharge Date: 02/11/18 - Admission Diagnoses (1) DKA (diabetic ketoacidoses) Status: Acute (2) Hypertension Status: Acute (3) GERD (gastroesophageal reflux disease) Status: Chronic (4) Low back pain Status: Chronic - Discharge Diagnoses Discharge Diagnosis: SAME ADMISSION DIAGNOSIS - Discharge Medications Discharge Medications: Home Medication List dextroamphetamine-amphetamine 20 mg PO BID 02/09/18 [History] docusate sodium [Colace] 100 mg PO DAILY 02/09/18 [History] insulin aspart U-100 [Novolog U-100 Insulin aspart] 3 units SUBCUT QAC 02/09/18 [History] insulin detemir U-100 [Levemir U-100 Insulin] 25 units SUBCUT BID 02/09/18 [History] nifedipine 90 mg PO DAILY 02/09/18 [History] ondansetron HCl [Zofran] 8 mg PO Q4-6H PRN 02/09/18 [History] Prescriptions: - Hospital Course Vital Signs: Temperature 97.4 F Pulse Rate [Apical] 137 Pulse Rate 75 Respiratory Rate 11 Blood Pressure [Left Arm] 120/80 Blood Pressure [Right Arm] 130/68 Blood Pressure 94/58 O2 Sat by Pulse Oximetry 98 Latest Lab Results: Laboratory Last Values WBC 11.1 X10^3/uL (3.6-10.0) H 02/11/18 05:12 RBC 3.54 X10^6/uL (4.7-6.0) L 02/11/18 05:12 Hgb 10.3 g/dL (13.5-18.0) L 02/11/18 05:12 Hct 30.4 % (42.0-54.0) L 02/11/18 05:12 MCV 85.8 fL (80.0-100.0) 02/11/18 05:12 MCH 29.0 pg (27.0-34.0) 02/11/18 05:12 MCHC 33.8 g/dL (33.0-35.0) 02/11/18 05:12 RDW 14.7 % (11.6-16.5) 02/11/18 05:12 Plt Count 201 X10^3/uL (150.0-450.0) 02/11/18 05:12 MPV 8.4 fL (7.4-11.0) 02/11/18 05:12 Neut % (Auto) 47.9 % (42.0-75.0) 02/11/18 05:12 Lymph % (Auto) 43.2 % (21.0-51.0) 02/11/18 05:12 [place] % (Auto) 7.9 % (0.0-13.0) 02/11/18 05:12 Eos % (Auto) 0.7 % (0.9-2.9) L 02/11/18 05:12 Baso % (Auto) 0.3 % (0.2-1.0) 02/11/18 05:12 Neut # (Auto) 5.3 x10^3/uL (2.2-4.8) H 02/11/18 05:12 Lymph # (Auto) 4.8 X10^3/uL (1.3-2.9) H 02/11/18 05:12 [place] # (Auto) 0.9 x10^3/uL (0.3-0.8) H 02/11/18 05:12 Eos # (Auto) 0.1 x10^3/uL (0.0-0.2) 02/11/18 05:12 Baso # (Auto) 0.0 X10^3/uL (0.0-0.1) 02/11/18 05:12 Absolute Nucleated RBC 0.0 /100WBC 02/11/18 05:12 Sample Site Right brachial 02/09/18 21:25 ABG pH 7.370 (7.35-7.45) 02/09/18 21:25 ABG pCO2 36.0 mmHg (35.0-45.0) 02/09/18 21:25 ABG pO2 80.0 mmHg (80.0-100.0) 02/09/18 21:25 ABG HCO3 20.8 mmol/L (22-26) L 02/09/18 21:25 ABG O2 Saturation 95.0 % (90-100) 02/09/18 21:25 ABG Base Excess -3.9 mmol/L (-2.0-2.0) L 02/09/18 21:25 Geoff Test Na 02/09/18 21:25 A-a Gradient 25.0 mmHg 02/09/18 21:25 FiO2 21 02/09/18 21:25 Blood Gas Comments Marva well jts 02/09/18 21:25 Sodium 142 mmol/L (136-145) 02/11/18 05:12 Corrected Sodium TNP 02/11/18 05:12 Potassium 3.2 mmol/L (3.5-5.1) L 02/11/18 05:12 Chloride 108 mmol/L (98-107) H 02/11/18 05:12 Carbon Dioxide 29.9 mmol/L (21-32) 02/11/18 05:12 BUN 3 mg/dL (7-18) L 02/11/18 05:12 Creatinine 0.59 mg/dL (0.70-1.30) L 02/11/18 05:12 Est GFR (MDRD) Af Amer > 60 (>60) 02/11/18 05:12 Est GFR (MDRD) Non-Af > 60 (>60) 02/11/18 05:12 Glucose 94 mg/dL (65-99) 02/11/18 05:12 POC Glucose (mg/dL) 332 mg/dL (65-99) H 02/11/18 11:27 Lactic Acid 3.5 mmol/L (0.4-2.0) H 02/09/18 07:50 Calcium 8.2 mg/dL (8.5-10.1) L 02/11/18 05:12 Corrected Calcium 9.4 mg/dL (8.5-10.1) 02/11/18 05:12 Magnesium 1.8 mg/dL (1.7-2.9) 02/11/18 05:12 Total Bilirubin 0.40 mg/dL (0.2-1.0) 02/11/18 05:12 AST 16 Units/L (15-37) 02/11/18 05:12 ALT 14 Units/L (12-78) 02/11/18 05:12 Alkaline Phosphatase 60 Units/L (46-116) 02/11/18 05:12 Creatine Kinase 56 Units/L (39-308) 02/09/18 07:50 CK-MB (CK-2) < 1.0 ng/mL (0-4.0) 02/09/18 07:50 CK/CKMB % Calc 1.8 % (<4) 02/09/18 07:50 Troponin I < 0.02 ng/mL (0-1.5) 02/09/18 07:50 Total Protein 5.3 g/dL (6.4-8.2) L 02/11/18 05:12 Albumin 2.5 g/dL (3.4-5.0) L 02/11/18 05:12 Globulin 2.8 g/dL (2.5-4.5) 02/11/18 05:12 Albumin/Globulin Ratio 0.9 Ratio (1.1-2.1) L 02/11/18 05:12 Specimen Type Random urine 02/09/18 11:23 Urine Color Yellow (YELLOW) 02/09/18 11: Urine Appearance Clear (CLEAR) 02/09/18 11:23 Urine pH 5.0 (5.0 - 8.0) 02/09/18 11:23 Ur Specific [place] 1.020 (1.000-1.030) 02/09/18 11:23 Urine Protein Negative (NEGATIVE) 02/09/18 11:23 Urine Glucose (UA) 4+ (NEGATIVE) 02/09/18 11:23 Urine Ketones 4+ (NEGATIVE) 02/09/18 11:23 Urine Occult Blood 2+ (NEGATIVE) 02/09/18 11: Urine Nitrite Negative (NEGATIVE) 02/09/18 11: Urine Bilirubin Negative (NEGATIVE) 02/09/18 11:23 Urine Urobilinogen Normal (NORMAL) 02/09/18 11:23 Ur Leukocyte Esterase Negative (NEGATIVE) 02/09/18 11:23 Urine RBC 3-5 /HPF (NONE SEEN) 02/09/18 11:23 Urine WBC 0-2 /HPF (NONE SEEN) 02/09/18 11:23 Ur Squamous Epith Cells Rare /HPF (NEGATIVE) 02/09/18 11:23 Urine Bacteria Negative /HPF (NEGATIVE) 02/09/18 11:23 Ur Culture Indicated? No/not indicated 02/09/18 11:23 Urine Opiates Screen Negative (NEG=<300) 02/09/18 11:23 Urine Methadone Screen Positive (NEG=<300) 02/09/18 11:23 Ur Barbiturates Screen Negative (NEG=<200) 02/09/18 11:23 Ur Phencyclidine Scrn Negative (NEG=<25) 02/09/18 11:23 Ur Amphetamines Screen Positive (NEG=<1000) 02/09/18 11:23 U Benzodiazepines Scrn Positive (NEG=<200) 02/09/18 11:23 Urine Cocaine Screen Negative (NEG=<300) 02/09/18 11:23 U Marijuana (THC) Screen Negative (NEG=<50) 02/09/18 11:23 Acetone, Semi-Quant Negative (NEGATIVE) 02/10/18 09:57 Hospital Course: 37 WM ER ADMISSION WITH DKA, PATIENT WAS STARTED ON INSULIN DRIP. WAS SUCCESSFULLY DISCONTINUED ONCE KETONES NEGATIVE. ELECTROLYTES IMPROVED. PATIENT RESTARTED ON HIS HOME MEDS INCLUDING METHADONE FOR LOW BACK PAIN. SYMPTOMS IMPROVED AND PATIENT WAS DC HOME TO BE FOLLOWED IN OP SETTING. - Discharge Plan Disposition: 01 HOME, SELF-CARE Condition: Stable - Follow ups/Referrals Follow ups/Referrals: Charlie Dallas [Primary Care Provider] - 3 days - Instructions
--- NOTE | 2018-04-16 09:55 | DR.H&P ---
H&P - History & Physical for Day of: H&P Date: 02/09/18 - Chief Complaint Chief Complaint: NAUSEA, VOMITING, ABDOMINAL PAIN, INCREASED BLOOD GLUCOSE - History of Present Illness History of Present Illness: IS A 37 YEAR OLD PATIENT OF OURS WHO PRESENTED TO THE EMERGENCY ROOM WITH COMPLAINTS OF ABDOMINAL PAIN, NAUSEA, VOMITING, AND INCREASED BLOOD GLUCOSE. HE REPORTS THAT HIS EMESIS IS BLOOD TINGED. SYMPTOMS REPORTEDLY STARTED TWO DAYS AGO. ON ARRIVAL, HE IS NOTED WITH AN INCREASED HEART RATE. VITALS WERE 96.8-133-20-98%RA-129/69. LABS WERE OBTAINED. ABNORMAL LAB VALUES INCLUDE THE FOLLOWING: WBC 13.7, CHLORIDE 97, CARBON DIOXIDE 10.6, GLUCOSE 430, LACTIC ACID 3.5, AST 14. ABG REVEALED: P[facility] 7.190, PC02 31.0, P02 99.0, HC03 11.8, 02 SATURATION 96.0, BASE EXCESS -15.2. ACETONES MODERATE. CHEST XRAY REVEALED NO ACUTE FINDINGS. EKG REVEALED: SINUS TACHYCARDIA WITH HR 129. HE WAS ADMITTED TO THE INTENSIVE CARE UNIT FOR METABOLIC ACIDOSIS, GASTRITIS, AND HYPERGLYCEMIA. HE WAS STARTED ON AN INSULIN DRIP AND IV HYDRATION. WE PLAN TO FOLLOW UP WITH AM LABS AND CONTINUE TO MONITOR. - Past Medical History Past Medical History: Diabetes Additional Medical History: DKA, Gastroparesis, Chronic Low Back Pain With Radiculopathy, Pancreatitis, UTI's - Past Surgical History Surgical History: Other Additional Surgical History: [place] Teeth Surgically Removed - Family History Family Medical History: Diabetes Mellitus, Sudden Cardiac , Hypertension - Social History Does patient currently use any type of tobacco product: No Have you used tobacco products in the last 12 months: No Type of Tobacco Use: None Does any household member use tobacco: No Alcohol Use: None Drug Use: Prescription Drugs, Methamphetamine - Medications Home Medications: No Known Drug Allergies Allergy (Verified 02/27/18 16:56) CONTINUE taking the following medications dextroamphetamine-amphetamine 20 mg PO BID 02/09/18 [History] docusate sodium [Colace] 100 mg PO DAILY 02/09/18 [History] insulin aspart U-100 [Novolog U-100 Insulin aspart] 3 units SUBCUT QAC 02/09/18 [History] insulin detemir U-100 [Levemir U-100 Insulin] 25 units SUBCUT BID 02/09/18 [History] nifedipine 90 mg PO DAILY 02/09/18 [History] ondansetron HCl [Zofran] 8 mg PO Q4-6H PRN 02/09/18 [History] - Review of Systems Constitutional: Weakness Eyes: No Symptoms Reported ENT: No Symptoms Reported Respiratory: Shortness of Breath Cardiovascular: No Symptoms Reported Gastrointestinal: See HPI, Nausea, Vomiting, Abdominal Pain Genitourinary: No Symptoms Reported Musculoskeletal: No Symptoms Reported Skin: No Symptoms Reported Neurological: Weakness - Physical Exam Vital Signs: Temperature 97.4 F Pulse Rate [Apical] 137 Pulse Rate 75 Respiratory Rate 11 Blood Pressure [Left Arm] 120/80 Blood Pressure [Right Arm] 130/68 Blood Pressure 94/58 O2 Sat by Pulse Oximetry 98 Oriented: Normal Eyes: Normal Ear: Normal Nose: Normal Throat: Normal Respiratory: Diminished Throughout Cardiovascular: Tachycardia. negative: S3, S4, Murmur : Normal Auscultation: Bowel Sounds: Normal Palpation: Normal Tenderness: Diffuse, Mild. negative: Rebound, Guarding, Rigidity Skin: Normal Musculoskeletal: Normal Psychiatric: Normal Mood Description: Calm Affect: Normal Speech Pattern: Clear - Assessment/Plan (1) Metabolic acidosis Status: Acute Plan: INSULIN DRIP, SODIUM BICARB, NORMAL SALINE AT 125ML/HR, SUPPLEMENTAL OXYGEN, CONTINUE TO MONITOR. (2) Gastritis Status: Acute (3) Type I diabetes mellitus Qualifiers: Diabetes mellitus complication status: with hyperglycemia Qualified Code(s): E10.65 - Type 1 diabetes mellitus with hyperglycemia Status: Chronic Plan: INSULIN DRIP, MONITOR OTBS, NORMAL SALINE AT 125ML/HR, CONTINUE TO MONITOR - Allergies Allergies/Adverse Reactions: Allergies Allergy/AdvReac Type Severity Reaction Status Date / Time No Known Drug Allergies Allergy Verified 02/27/18 16:56
== END 2018-02-11 15:15 | disposition home or self-care (01) | DRG 638 ==
LOC: ER 07:23 → ICU 09:22
PROVIDERS: ADMIT Internal Medicine; ATTEND Internal Medicine
DX: R11.2 Nausea with vomiting, unspecified; M54.5 Low back pain; E87.2 Acidosis; K21.9 Gastro-esophageal reflux disease without esophagitis; K29.60 Other gastritis without bleeding; E11.10 Type 2 diabetes mellitus with ketoacidosis without coma; E87.6 Hypokalemia; I10 Essential (primary) hypertension; R94.31 Abnormal electrocardiogram [ECG] [EKG]; R10.84 Generalized abdominal pain; E11.65 Type 2 diabetes mellitus with hyperglycemia
CPT/HCPCS: 36415; 36600; 71010; 71045; 74000; 74018; 80048; 80053; 80307; 81001; 82009; 82550; 82553; 82803; 83605; 83735; 84484; 85025; 87040; 93005; 93010; 96365; 96367; 96374; 96375; 99284; A4222; C9113; S0109; G0434; J1170; J1642; J1815; J2270; J2405; J2550; J3475; J3490; J7030; J7050

== ENCOUNTER 2018-02-27 16:37 | Inpatient (IN) ==
[2018-02-27] MEDS ORDERED: NS 1000 ML 1,000 ML ONE ×4 (16:46→19:22)
[2018-02-27] MEDS ORDERED: NS 1000 ML 1,000 ML IV ONE ×3 (16:55→19:22)
[2018-02-27 17:31] LABS: ABG BASE EXCESS -29.2 mmol/L (-2.0-2.0); ABG HCO3 3.2 mmol/L (22-26)
[2018-02-27 17:32] LABS: FRACTIONATED INSPIRED OXYGEN 28
[2018-02-27 17:35] LABS: SERUM ACETONE MODERATE (NEGATIVE)
[2018-02-27] MEDS ORDERED: SODIUM BICARBONATE 8.4% INJ ADULT 100 ML in NS 1/2 1000 ML IV 1,000 ML IV ONE (17:36)
[2018-02-27] MEDS ORDERED: SODIUM BICARBONATE 8.4% INJ ADULT ONE (17:41)
[2018-02-27 17:51] LABS: BASOPHILS # (AUTO) 0.4 X10^3/uL (0.0-0.1); EOSINOPHILS # (AUTO) 0.2 x10^3/uL (0.0-0.2); EOSINOPHILS % (AUTO) 0.5 % (0.9-2.9); HEMATOCRIT 46.4 % (42.0-54.0); HEMOGLOBIN 13.7 g/dL (13.5-18.0); LYMPHOCYTES # (AUTO) 7.3 X10^3/uL (1.3-2.9); MEAN CORPUSCULAR HEMOGLOBIN 28.2 pg (27.0-34.0); MEAN CORPUSCULAR HGB CONC 29.5 g/dL (33.0-35.0); MEAN CORPUSCULAR VOLUME 95.7 fL (80.0-100.0); MEAN PLATELET VOLUME 10.3 fL (7.4-11.0); MONOCYTES # (AUTO) 2.8 x10^3/uL (0.3-0.8); MONOCYTES % (AUTO) 6.9 % (0.0-13.0); NEUTROPHILS # (AUTO) 29.8 x10^3/uL (2.2-4.8); NEUTROPHILS % (AUTO) 73.6 % (42.0-75.0); PLATELET COUNT 325 X10^3/uL (150.0-450.0); RED BLOOD COUNT 4.85 X10^6/uL (4.7-6.0); RED CELL DISTRIBUTION WIDTH 15.5 % (11.6-16.5)
[2018-02-27 17:55] LABS: ALANINE AMINOTRANSFERASE 18 Units/L (12-78); ALBUMIN 3.8 g/dL (3.4-5.0); ALKALINE PHOSPHATASE 129 Units/L (46-116); ASPARTATE AMINO TRANSFERASE 12 Units/L (15-37); BLOOD UREA NITROGEN 26 mg/dL (7-18); CALCIUM 9.2 mg/dL (8.5-10.1); CHLORIDE 89 mmol/L (98-107); CREATININE 2.28 mg/dL (0.70-1.30); SODIUM 133 mmol/L (136-145); TOTAL PROTEIN 7.6 g/dL (6.4-8.2); eGFR NON BLACK RACES 35 (>60)
[2018-02-27 17:56] LABS: LACTIC ACID 11.2 mmol/L (0.4-2.0)
[2018-02-27 17:57] LABS: WHITE BLOOD COUNT 40.5 X10^3/uL (3.6-10.0)
[2018-02-27 18:00] LABS: BAND NEUTROPHILS % 13 % (0-10); PLATELET MORPHOLOGY COMMENT NORMAL (NORMAL)
[2018-02-27] MEDS ORDERED: NS 1000 ML 1,000 ML with SODIUM BICARBONATE 8.4% INJ ADULT 50 ML IV SCH ×2 (18:00)
[2018-02-27 18:12] LABS: CARBON DIOXIDE 6.4 mmol/L (21-32)
[2018-02-27 18:16] LABS: COR NA(FOR HYPERGLY) 154 mmol/L (136-145)
[2018-02-27] MEDS ORDERED: HumuLIN R IV ONE (18:41)
[2018-02-27] MEDS ORDERED: HumuLIN R ONE (18:48)
[2018-02-27] MEDS ORDERED: NS 100 ML IV 100 ML IV ONE (18:49)
--- NOTE | 2018-02-27 19:52 | DR.HYPOGLY ---
HPI Time Seen Time Seen by Provider: 02/27/18 17:00 PCP Primary Care Physician: KRYS Pappas Chief Complaint Doctors Comments: I agree with statement as written. Patient is seen frequently for periods of hyperglycemia. Chief Complaint:: EMS RESPONDED TO C/O OF HIGH RESPIRATIONS. PT'S BLOOD SUGAR HIGH PER EMS. UPON ARRIVAL TO ER, PT. IS VERY LETHARGIC. RESPIRATIONS LABORED AND TACHYPNEIC. Source History Provided: EMS Mode of Arrival Mode of Arrival: EMS Timing Onset of Chief Complaint: 02/27/18 PMH PMH Past Medical History: Yes Past Medical History: Diabetes Past Surgical History: Yes Surgical History: Other Family History History of Family Medical Conditions: Yes Family Medical History: Diabetes Mellitus, Sudden Cardiac and Hypertension Social History Does patient currently use any type of tobacco product: Yes Have you used tobacco products in the last 12 months: Yes Type of Tobacco Use: Cigarettes Does any household member use tobacco: Yes Alcohol Use: None Do you use any recreational Drugs:: Yes Lives With: Family Lives Where: Home infectious screening In the last 2 months have you had wt loss of >10#?: NO Have you had fever, night sweats or hemotysis?: No Have you traveled outside the country in the last 6 months?: No Isolation: Standard PE Vital Signs Vitals: Temperature 97.9 F Pulse Rate [Apical] 145 Pulse Rate 143 Respiratory Rate 21 Blood Pressure [Left Arm] 120/80 Blood Pressure [Right Arm] 104/59 Blood Pressure 101/57 O2 Sat by Pulse Oximetry 100 General Limitations: Altered Mental Status General Appearance: Obtunded Eyes Eye exam: EOMI and Scleral Icterus Pupils: Regular, Round: Left and Reactive: Left Sclera/Conjunctival: Normal Inspection: Bilateral ENT ENT Exam: Mucous Membranes Dry Nose Exam: Normal Nose Exam Mouth Exam: Other Neck Neck Exam: Normal Inspection and Full ROM Chest Chest Inspection: Normal Inspection and Symmetric Chest Wall Rise Respiratory Respiratory Exam: Bilateral: Clear to Auscultation Cardiovascular Cardiovascular Exam: Tachycardia Abdominal Exam Abdominal Exam: Normal Inspection Abdominal Tenderness: Epigastrium Back Back Exam: Normal Inspection Neurologic Neurological Exam: Alert Patient Oriented To: Person and Place Speech: Expressive Aphasia Cranial Nerve Exam: EOM Function (II, III, IV, ): Normal Cerebellar Function: Other (Not testable) Psychiatric Psychiatric Exam: Depressed and Flat Affect Skin Skin Exam: Warm, Dry and Intact COURSE Consultation Called: 19:55 Consultation Comments: Patient discussed with Dr. Dallas who agreed to admit for further evaluation and treatment. ROR Labs Reviewed Laboratory Results Reviewed?: Yes Result Diagrams: 02/27/18 16:49 02/27/18 21:10 Laboratory: WBC 40.5 X10^3/uL (3.6-10.0) H* 02/27/18 16:49 RBC 4.85 X10^6/uL (4.7-6.0) 02/27/18 16:49 Hgb 13.7 g/dL (13.5-18.0) 02/27/18 16:49 Hct 46.4 % (42.0-54.0) 02/27/18 16:49 MCV 95.7 fL (80.0-100.0) 02/27/18 16:49 MCH 28.2 pg (27.0-34.0) 02/27/18 16:49 MCHC 29.5 g/dL (33.0-35.0) L 02/27/18 16:49 RDW 15.5 % (11.6-16.5) 02/27/18 16:49 Plt Count 325 X10^3/uL (150.0-450.0) 02/27/18 16:49 Plt Count Comment Adequate (ADEQUATE) 02/27/18 16:49 MPV 10.3 fL (7.4-11.0) 02/27/18 16:49 Neut % (Auto) 73.6 % (42.0-75.0) 02/27/18 16:49 Lymph % (Auto) 18.0 % (21.0-51.0) L 02/27/18 16:49 [place] % (Auto) 6.9 % (0.0-13.0) 02/27/18 16:49 Eos % (Auto) 0.5 % (0.9-2.9) L 02/27/18 16:49 Baso % (Auto) 1.0 % (0.2-1.0) 02/27/18 16:49 Neut # (Auto) 29.8 x10^3/uL (2.2-4.8) H 02/27/18 16:49 Lymph # (Auto) 7.3 X10^3/uL (1.3-2.9) H 02/27/18 16:49 [place] # (Auto) 2.8 x10^3/uL (0.3-0.8) H 02/27/18 16:49 Eos # (Auto) 0.2 x10^3/uL (0.0-0.2) 02/27/18 16:49 Baso # (Auto) 0.4 X10^3/uL (0.0-0.1) H 02/27/18 16:49 Absolute Nucleated RBC 0.0 /100WBC 02/27/18 16:49 Total Counted 100 02/27/18 16:49 Neutrophils % (Manual) 67 % (39-76) 02/27/18 16:49 Band Neutrophils % 13 % (0-10) H 02/27/18 16:49 Lymphocytes % (Manual) 15 % (13-43) 02/27/18 16:49 Monocytes % (Manual) 5 % (4-9) 02/27/18 16:49 Plt Morphology Comment Normal (NORMAL) 02/27/18 16:49 RBC Morphology Normal (NORMAL) 02/27/18 16:49 Sample Site Lbr 02/27/18 17:15 ABG pH 6.860 (7.35-7.45) L* 02/27/18 17:15 ABG pCO2 18.0 mmHg (35.0-45.0) L* 02/27/18 17:15 ABG pO2 66.0 mmHg (80.0-100.0) L 02/27/18 17:15 ABG HCO3 3.2 mmol/L (22-26) L* 02/27/18 17:15 ABG O2 Saturation 70.0 % (90-100) L* 02/27/18 17:15 ABG Base Excess -29.2 mmol/L (-2.0-2.0) L 02/27/18 17:15 Geoff Test N/a 02/27/18 17:15 A-a Gradient 111.0 mmHg 02/27/18 17:15 FiO2 28 02/27/18 17:15 Blood Gas Comments Pt reece well elj 02/27/18 17:15 Sodium 135 mmol/L (136-145) L 02/27/18 19:28 Corrected Sodium 155 mmol/L (136-145) H 02/27/18 19:28 Potassium 5.8 mmol/L (3.5-5.1) H 02/27/18 19:28 Chloride 94 mmol/L (98-107) L 02/27/18 19:28 Carbon Dioxide < 5.0 mmol/L (21-32) L* 02/27/18 19:28 BUN 28 mg/dL (7-18) H 02/27/18 19:28 Creatinine 2.49 mg/dL (0.70-1.30) H 02/27/18 19:28 Est GFR (MDRD) Af Amer 38 (>60) L 02/27/18 19:28 Est GFR (MDRD) Non-Af 31 (>60) L 02/27/18 19:28 Glucose 747 mg/dL (65-99) H* 02/27/18 21:10 POC Glucose (mg/dL) > 600 mg/dL (65-99) 02/27/18 21:19 Lactic Acid 11.2 mmol/L (0.4-2.0) H 02/27/18 16:49 Calcium 8.1 mg/dL (8.5-10.1) L 02/27/18 19:28 Corrected Calcium TNP 02/27/18 16:49 Total Bilirubin 0.90 mg/dL (0.2-1.0) 02/27/18 16:49 AST 12 Units/L (15-37) L 02/27/18 16:49 ALT 18 Units/L (12-78) 02/27/18 16:49 Alkaline Phosphatase 129 Units/L (46-116) H 02/27/18 16:49 Creatine Kinase 121 Units/L (39-308) 02/27/18 21:10 CK-MB (CK-2) 1.6 ng/mL (0-4.0) 02/27/18 21:10 CK/CKMB % Calc 1.3 % (<4) 02/27/18 21:10 Troponin I < 0.02 ng/mL (0-1.5) 02/27/18 21:10 Total Protein 7.6 g/dL (6.4-8.2) 02/27/18 16:49 Albumin 3.8 g/dL (3.4-5.0) 02/27/18 16:49 Globulin 3.8 g/dL (2.5-4.5) 02/27/18 16:49 Albumin/Globulin Ratio 1.0 Ratio (1.1-2.1) L 02/27/18 16:49 Specimen Type Catherized urine 02/27/18 20:30 Urine Color Yellow (YELLOW) 02/27/18 20:30 Urine Appearance Clear (CLEAR) 02/27/18 20:30 Urine pH 5.0 (5.0 - 8.0) 02/27/18 20:30 Ur Specific [place] 1.020 (1.000-1.030) 02/27/18 20:30 Urine Protein 2+ (NEGATIVE) 02/27/18 20:30 Urine Glucose (UA) 4+ (NEGATIVE) 02/27/18 20:30 Urine Ketones 4+ (NEGATIVE) 02/27/18 20:30 Urine Occult Blood 2+ (NEGATIVE) 02/27/18 20:30 Urine Nitrite Negative (NEGATIVE) 02/27/18 20:30 Urine Bilirubin Negative (NEGATIVE) 02/27/18 20:30 Urine Urobilinogen Normal (NORMAL) 02/27/18 20:30 Ur Leukocyte Esterase Negative (NEGATIVE) 02/27/18 20:30 Urine RBC 0-2 /HPF (NONE SEEN) 02/27/18 20:30 Urine WBC 0-2 /HPF (NONE SEEN) 02/27/18 20:30 Ur Squamous Epith Cells Rare /HPF (NEGATIVE) 02/27/18 20:30 Urine Bacteria Negative /HPF (NEGATIVE) 02/27/18 20:30 Ur Culture Indicated? No/not indicated 02/27/18 20:30 Urine Opiates Screen Negative (NEG=<300) 02/27/18 20:30 Urine Methadone Screen Positive (NEG=<300) 02/27/18 20:30 Ur Barbiturates Screen Negative (NEG=<200) 02/27/18 20:30 Ur Phencyclidine Scrn Negative (NEG=<25) 02/27/18 20:30 Ur Amphetamines Screen Positive (NEG=<1000) 02/27/18 20:30 U Benzodiazepines Scrn Positive (NEG=<200) 02/27/18 20:30 Urine Cocaine Screen Negative (NEG=<300) 02/27/18 20:30 U Marijuana (THC) Screen Negative (NEG=<50) 02/27/18 20:30 Acetone, Semi-Quant Moderate (NEGATIVE) H 02/27/18 16:49 ADDITIONAL NOTES Additional Notes Additional Notes: Patient admitted to hospital
[2018-02-27 19:54] LABS: CREATINE KINASE 124 Units/L (39-308); CREATINE KINASE MB 1.2 ng/mL (0-4.0); TROPONIN I < 0.02 ng/mL (0-1.5)
[2018-02-27 19:56] LABS: BLOOD UREA NITROGEN 28 mg/dL (7-18); CALCIUM 8.1 mg/dL (8.5-10.1); CHLORIDE 94 mmol/L (98-107); CREATININE 2.49 mg/dL (0.70-1.30); SODIUM 135 mmol/L (136-145); eGFR NON BLACK RACES 31 (>60)
[2018-02-27] MEDS ORDERED: NS 100 ML IV + SPIKE MINIBAG* 100 ML IV ONE (20:05)
[2018-02-27] MEDS ORDERED: ZOFRAN INJ 4 MG VIAL IVP PRN ×2 (20:16→22:24)
[2018-02-27 20:25] LABS: COR NA(FOR HYPERGLY) 155 mmol/L (136-145)
[2018-02-27 20:26] LABS: CARBON DIOXIDE < 5.0 mmol/L (21-32)
[2018-02-27 20:51] LABS: BILIRUBIN,URINE NEGATIVE (NEGATIVE); BLOOD/HEMOGLOBIN,URINE 2+ (NEGATIVE); GLUCOSE, URINE 4+ (NEGATIVE); KETONES,URINE 4+ (NEGATIVE); LEUKOCYTE ESTERASE ,URINE NEGATIVE (NEGATIVE); NITRITES,URINE NEGATIVE (NEGATIVE); PROTEIN,URINE 2+ (NEGATIVE); UROBILINOGEN,URINE NORMAL (NORMAL)
[2018-02-27 20:59] LABS: APPEARANCE,URINE CLEAR (CLEAR); BACTERIA,URINE NEGATIVE /HPF (NEGATIVE); COLOR,URINE YELLOW (YELLOW); RBC,URINE 0-2 /HPF (NONE SEEN); SQUAMOUS EPITHELIAL CELL,UR RARE /HPF (NEGATIVE)
[2018-02-27] MEDS ORDERED: NS 1000 ML 1,000 ML with SODIUM BICARBONATE 8.4% INJ ADULT 100 ML IV SCH ×2 (21:00)
[2018-02-27] MEDS ORDERED: PEPCID TAB 20 MG PO SCH ×2 (21:14→22:00)
[2018-02-27] MEDS ORDERED: LINACLOTIDE 290 MCG PO SCH (21:14)
[2018-02-27] MEDS ORDERED: ALPRAZOLAM 2 MG PO PRN (21:14)
[2018-02-27 21:47] LABS: CKMB % 1.3 % (<4); CREATINE KINASE 121 Units/L (39-308); CREATINE KINASE MB 1.6 ng/mL (0-4.0); TROPONIN I < 0.02 ng/mL (0-1.5)
[2018-02-27] MEDS ORDERED: ZOSYN VIAL 2.25 GRAMS IV SCH (22:00)
[2018-02-27] MEDS: SNACK - Diabetic Appropriate PO SCH (22:04)
[2018-02-27] MEDS: NS 1000 ML 1,000 ML with SODIUM BICARBONATE 8.4% INJ ADULT 100 ML IV SCH ×2 (23:30)
[2018-02-27] MEDS: METHADONE HCL PO PRN (23:31)
[2018-02-28] MEDS: XANAX PO SCH
[2018-02-28] MEDS: KLONOPIN TAB 1 MG PO SCH
[2018-02-28 01:44] LABS: ABG HCO3 8.2 mmol/L (22-26); FRACTIONATED INSPIRED OXYGEN 28
[2018-02-28] MEDS ORDERED: PEPCID 20 MG IV PREMIX* 20 MG/50 ML BAG IV SCH (03:00)
[2018-02-28] MEDS: PHENERGAN INJ 25 MG IV PRN ×2 (03:42→10:18)
[2018-02-28 03:57] LABS: CKMB % 3.1 % (<4); CREATINE KINASE 143 Units/L (39-308); TROPONIN I < 0.02 ng/mL (0-1.5)
[2018-02-28 04:02] LABS: CREATINE KINASE MB 4.4 ng/mL (0-4.0)
[2018-02-28 04:26] VITALS: BMI 18.8
[2018-02-28] MEDS ORDERED: ZOSYN VIAL 2.25 GRAMS IV SCH (06:00)
[2018-02-28] MEDS: ZOSYN VIAL 2.25 GRAMS IV SCH ×3 (06:18→21:02)
[2018-02-28 06:25] LABS: ABG BASE EXCESS -1.8 mmol/L (-2.0-2.0)
[2018-02-28] MEDS ORDERED: NS 100 ML IV 100 ML IV ONE (06:25)
[2018-02-28 06:26] LABS: ABG HCO3 22.1 mmol/L (22-26)
[2018-02-28 06:27] LABS: FRACTIONATED INSPIRED OXYGEN 21
[2018-02-28 06:28] LABS: ABG ALLEN TEST N/A TOL
[2018-02-28 06:30] LABS: BASOPHILS % (AUTO) 0.2 % (0.2-1.0); HEMATOCRIT 36.9 % (42.0-54.0); HEMOGLOBIN 12.2 g/dL (13.5-18.0); LYMPHOCYTES # (AUTO) 2.8 X10^3/uL (1.3-2.9); LYMPHOCYTES % (AUTO) 10.4 % (21.0-51.0); MEAN CORPUSCULAR HEMOGLOBIN 28.3 pg (27.0-34.0); MEAN CORPUSCULAR HGB CONC 33.2 g/dL (33.0-35.0); MEAN CORPUSCULAR VOLUME 85.2 fL (80.0-100.0); MEAN PLATELET VOLUME 8.8 fL (7.4-11.0); MONOCYTES # (AUTO) 1.7 x10^3/uL (0.3-0.8); MONOCYTES % (AUTO) 6.2 % (0.0-13.0); NEUTROPHILS # (AUTO) 22.4 x10^3/uL (2.2-4.8); NEUTROPHILS % (AUTO) 83.2 % (42.0-75.0); PLATELET COUNT 263 X10^3/uL (150.0-450.0); RED BLOOD COUNT 4.33 X10^6/uL (4.7-6.0); RED CELL DISTRIBUTION WIDTH 14.7 % (11.6-16.5); WHITE BLOOD COUNT 26.9 X10^3/uL (3.6-10.0)
[2018-02-28 06:44] LABS: ALANINE AMINOTRANSFERASE 21 Units/L (12-78); ALBUMIN 3.5 g/dL (3.4-5.0); ALKALINE PHOSPHATASE 104 Units/L (46-116); ASPARTATE AMINO TRANSFERASE 20 Units/L (15-37); BLOOD UREA NITROGEN 25 mg/dL (7-18); CALCIUM 8.5 mg/dL (8.5-10.1); CARBON DIOXIDE 18.9 mmol/L (21-32); CHLORIDE 111 mmol/L (98-107); COR NA(FOR HYPERGLY) 151 mmol/L (136-145); CREATININE 1.48 mg/dL (0.70-1.30); SODIUM 147 mmol/L (136-145); TOTAL PROTEIN 7.2 g/dL (6.4-8.2); eGFR NON BLACK RACES 57 (>60)
[2018-02-28 07:04] LABS: BAND NEUTROPHILS % 3 % (0-10); PLATELET MORPHOLOGY COMMENT NORMAL (NORMAL)
[2018-02-28] MEDS: NS 1000 ML 1,000 ML with SODIUM BICARBONATE 8.4% INJ ADULT 100 ML IV SCH ×2 (07:56)
[2018-02-28] MEDS ORDERED: NIFEDIPINE 90 MG PO SCH (09:00)
[2018-02-28] MEDS: MILK OF MAGNESIA PO SCH ×2 (09:10→10:03)
[2018-02-28 09:48] LABS: CKMB % 2.9 % (<4); TROPONIN I 0.04 ng/mL (0-1.5)
[2018-02-28 09:50] LABS: CREATINE KINASE MB 4.1 ng/mL (0-4.0)
[2018-02-28] MEDS: COLACE CAP 100 MG PO SCH (10:01)
[2018-02-28] MEDS: LINZESS PO SCH (10:02)
[2018-02-28] MEDS ORDERED: NS 1000 ML 1,000 ML IV ONE ×2 (10:20)
[2018-02-28] MEDS: LEVAQUIN PREMIX IV 750 MG 750 MG/150 ML BAG IV SCH (10:54)
[2018-02-28] MEDS ORDERED: NS 250 ML IV 250 ML IV ONE (10:56)
[2018-02-28] MEDS: PROCARDIA XL PO SCH (11:19)
[2018-02-28] MEDS ORDERED: POTASSIUM CHL 40 MEQ/NS 0.45% 500 ML IV PRN (11:41)
[2018-02-28] MEDS ORDERED: POTASSIUM CHLORIDE LIQ 20 MEQ UDC PO PRN (11:41)
[2018-02-28] MEDS ORDERED: K-RIDER 10 MEQ/NS 100 ML 10 MEQ/100 ML BAG IV PRN (11:41)
[2018-02-28] MEDS ORDERED: MICRO K EXTEN CAP 10 MEQ PO PRN (11:41)
[2018-02-28] MEDS ORDERED: POTASSIUM CHL 60 MEQ/NS 0.45% 500 ML IV PRN (11:41)
[2018-02-28] MEDS ORDERED: KLOR-CON PO PRN (11:41)
[2018-02-28] MEDS: NS 1000 ML 1,000 ML IV SCH ×2 (13:17→19:55)
[2018-02-28] MEDS ORDERED: NS 100 ML IV + SPIKE MINIBAG* 100 ML IV ONE (13:43)
--- NOTE | 2018-02-28 16:50 | DR.H&P ---
H&P - History & Physical for Day of: H&P Date: 02/27/18 - Chief Complaint Chief Complaint: DECREASED RESPONSIVENESS, HYPERGLYCEMIA, TACHYCARDIA, TACHYPNEIC - History of Present Illness History of Present Illness: IS A 37 YEAR OLD PATIENT OF OURS WHO PRESENTED TO THE EMERGENCY ROOM WITH COMPLAINTS OF INCREASED BLOOD SUGAR, LABORED BREATHING, AND DECREASED RESPONSIVENESS. ON ARRIVAL, PATIENT WAS NOTED TO BE LETHARGIC, TACHYPNEIC, AND DIAPHORETIC. PATIENT HAS A KNOWN HISTORY OF DIABETES MELLITIS. VITALS WERE 96.4-143-47-96%-69/44. LABS WERE OBTAINED. ABNORMAL LAB VALUES INCLUDE THE FOLLOWING: WBC 40.5, SODIUM 133, POTASSIUM 5.4, CHLORIDE 89, CARBON DIOXIDE 6.4, BUN 26, CREATININE 2.28, GLUCOSE 959, LACTIC ACID 11.2, AST 12, ALK PHOS 129. CARDIAC ENZYMES WITHIN NORMAL LIMITS. ABG REVEALED PH 6.860, PC02 18.0, P02 66.0, HC03 3.2, 02 SATURATION 70.0, BASE EXCESS -29.2. ACETONES MODERATE. TOXICOLOGY REVEALED POSITIVE FOR METHADONE, AMPHETAMINES, AND BENZODIAZEPINES. EKG REVEALED SINUS OR ECTOPIC ATRIAL TACHYCARDIA, LEFT ANTERIOR FASICULAR BLOCK, ST ELEVATION, HR 140. A OLGUIN CATHETER WAS INSERTED IN THE ER WITH NO URINE NOTED ON RETURN. HE WAS GIVEN THREE NORMAL SALINE BOLUSES IN THE ER. IN INCRESE IN BLOOD PRESSURE TO 106/50 NOTED. HE WAS ADMITTED FOR FURTHER EVALUATION AND TREATMENT OF DKA, DEHYDRATION, HYPOKALEMIA, AND WEAKNESS. HE WAS STARTED ON AN INUSLIN DRIP, NORMAL SALINE AT 125ML/HR, LEVAQUIN 750MG IV DAILY, AND STARTED ON THE POTASSIUM PROTOCOL. - Past Medical History Past Medical History: Diabetes Additional Medical History: DKA, Gastroparesis, Chronic Low Back Pain With Radiculopathy, Pancreatitis, UTI's - Past Surgical History Surgical History: Other Additional Surgical History: Vendor Teeth Surgically Removed - Family History Family Medical History: Diabetes Mellitus, Sudden Cardiac , Hypertension - Social History Does patient currently use any type of tobacco product: Yes Have you used tobacco products in the last 12 months: Yes Type of Tobacco Use: Cigarettes Does any household member use tobacco: Yes Alcohol Use: None Drug Use: Prescription Drugs - Medications Home Medications: No Known Drug Allergies Allergy (Verified 02/27/18 16:56) CONTINUE taking the following medications famotidine 20 mg PO BID 02/27/18 [History] - Physical Exam Vital Signs: Temperature 98.9 F Pulse Rate [Apical] 145 Pulse Rate 130 Respiratory Rate 21 Blood Pressure [Left Arm] 120/80 Blood Pressure [Right Arm] 104/59 Blood Pressure 134/79 O2 Sat by Pulse Oximetry 99 - Allergies Allergies/Adverse Reactions: Allergies Allergy/AdvReac Type Severity Reaction Status Date / Time No Known Drug Allergies Allergy Verified 02/27/18 16:56
[2018-02-28] MEDS: K-DUR TAB 20 MEQ PO PRN (17:22)
[2018-02-28] MEDS: MAGNESIUM SULFATE 1 GRAM/100 mL PREMIX 4 G/400 ML BAG IV SCH ×4 (17:27→22:21)
[2018-02-28] MEDS: SNACK - Diabetic Appropriate PO SCH (19:56)
[2018-02-28] MEDS ORDERED: NS 50 ML IV 50 ML IV ONE (20:43)
[2018-02-28] MEDS: METHADONE HCL PO PRN (20:54)
[2018-03-01] MEDS: NS 1000 ML 1,000 ML IV SCH ×3 (03:46→20:52)
[2018-03-01] MEDS ORDERED: NS 50 ML IV 50 ML IV ONE (05:52)
[2018-03-01] MEDS: PEPCID 20 MG IV PREMIX* 20 MG/50 ML BAG IV SCH (05:55)
[2018-03-01] MEDS: ZOSYN VIAL 2.25 GRAMS IV SCH ×3 (05:56→21:01)
[2018-03-01 06:14] LABS: BASOPHILS % (AUTO) 0.1 % (0.2-1.0); HEMOGLOBIN 10.9 g/dL (13.5-18.0); LYMPHOCYTES # (AUTO) 2.3 X10^3/uL (1.3-2.9); LYMPHOCYTES % (AUTO) 12.1 % (21.0-51.0); MEAN CORPUSCULAR HEMOGLOBIN 28.6 pg (27.0-34.0); MEAN PLATELET VOLUME 8.8 fL (7.4-11.0); MONOCYTES # (AUTO) 1.3 x10^3/uL (0.3-0.8); NEUTROPHILS # (AUTO) 15.2 x10^3/uL (2.2-4.8); NEUTROPHILS % (AUTO) 80.8 % (42.0-75.0); PLATELET COUNT 186 X10^3/uL (150.0-450.0); RED BLOOD COUNT 3.81 X10^6/uL (4.7-6.0); RED CELL DISTRIBUTION WIDTH 14.8 % (11.6-16.5); WHITE BLOOD COUNT 18.8 X10^3/uL (3.6-10.0)
[2018-03-01] MEDS: HumuLIN R SUBCUT PRN ×3 (06:20→20:54)
[2018-03-01 06:24] LABS: SERUM ACETONE SMALL (NEGATIVE)
[2018-03-01 07:21] LABS: ALANINE AMINOTRANSFERASE 17 Units/L (12-78); ALBUMIN 2.9 g/dL (3.4-5.0); ALKALINE PHOSPHATASE 89 Units/L (46-116); ASPARTATE AMINO TRANSFERASE 21 Units/L (15-37); BLOOD UREA NITROGEN 3 mg/dL (7-18); CALCIUM 7.9 mg/dL (8.5-10.1); CARBON DIOXIDE 22.8 mmol/L (21-32); CHLORIDE 103 mmol/L (98-107); COR CA(FOR HYPOALB) 8.8 mg/dL (8.5-10.1); COR NA(FOR HYPERGLY) 143 mmol/L (136-145); CREATININE 0.72 mg/dL (0.70-1.30); MAGNESIUM 1.8 mg/dL (1.7-2.9); SODIUM 141 mmol/L (136-145); TOTAL PROTEIN 6.1 g/dL (6.4-8.2); eGFR NON BLACK RACES > 60 (>60)
[2018-03-01] MEDS: LEVAQUIN PREMIX IV 750 MG 750 MG/150 ML BAG IV SCH (08:20)
[2018-03-01] MEDS: K-DUR TAB 20 MEQ PO PRN (08:20)
[2018-03-01] MEDS: PROCARDIA XL PO SCH (08:20)
[2018-03-01] MEDS: LINZESS PO SCH (08:20)
[2018-03-01] MEDS: COLACE CAP 100 MG PO SCH (08:20)
[2018-03-01] MEDS: PHENERGAN INJ 25 MG IV PRN ×2 (08:25→21:01)
[2018-03-01] MEDS: MILK OF MAGNESIA PO SCH (08:30)
[2018-03-01] MEDS: METHADONE HCL PO PRN ×2 (11:19→18:43)
[2018-03-01] MEDS ORDERED: NS 100 ML IV + SPIKE MINIBAG* 100 ML IV ONE ×2 (13:10→20:29)
[2018-03-01] MEDS: SNACK - Diabetic Appropriate PO SCH (20:52)
--- NOTE | 2018-03-01 21:29 | PCM.PROG ---
Progress Note - Progress Note for Day of Date of Exam: 02/28/18 - Subjective Subjective: WAS ADMITTED FOR DKA, DEHYDRATION, HYPOKALEMIA, AND WEAKNESS. TODAY, HE IS LYING IN BED WITH EYES CLOSED ON MORNING ROUNDS. HE AWAKENS AND RESPONDS TO VERBAL STIMULI. ON EXAMINATION, HEART IS REGULAR IN RATE AND RHYTHM. BILATERAL LUNGS ARE NOTED WITH DIMINISHED LUNG SOUNDS THROUGHOUT. ABDOMEN IS FLAT, SOFT, AND NOTED WITH MILD, DIFFUSE TENDERNESS. HYPOACTIVE BOWEL SOUNDS NOTED IN ALL QUADRANTS. HIS VITALS THIS MORNING ARE 101.9-629-20-100%-156/85. LABS WERE OBTAINED. ABNORMAL LAB VALUES INCLUDE THE FOLLOWING: WBC DECREASED FROM 40.5 TO 26.9, RBC 4.33, HGB 12.2, HCT 36.9, SODIUM 147, POTASSIUM 3.4, CHLORIDE 111, CARBON DIOXIDE 18.9, BUN 25, CREATININE 1.48, GLUCOSE 273. CARDIAC ENZYMES ARE WITHIN NORMAL LIMITS. ABG REVEALED: PC02 34.0, OTHERWISE, WITHIN NORMAL LIMITS. BLOOD CULTURES ARE PENDING. TODAYS CHEST XRAY REVEALS NO ACUTE CARDIOPULMONARY ABNORMALITY. HE REMAINS ON AN INSULIN DRIP THIS MORNING. HIS BLOOD SUGAR HAS HAD A STEADY DECLINE THROUGHOUT THE NIGHT. HE IS A LSO RECEIVING ZOSYN 2.25GM IV TID. TODAY, WE WILL START LEVAQUIN 750MG IV DAILY AND BOLUS HIM WITH 2 LITERS OF NORMAL SALINE. OTHERWISE, WE WILL FOLLOW UP WITH AM LABS AND CONTINUE TO MONITOR. - Past Medical Family Social History Past Med/Fam/Surg Hx: No changes since H&P Allergies: Allergies No Known Drug Allergies Allergy (Verified 02/27/18 16:56) - Review of Systems ROS: No change since H&P - Vital Signs and I&O's Vital Signs: Temperature 98.4 F Pulse Rate [Apical] 145 Pulse Rate 120 Respiratory Rate 12 Blood Pressure [Left Arm] 120/80 Blood Pressure [Right Arm] 104/59 Blood Pressure 102/65 O2 Sat by Pulse Oximetry 100 Intake and Output: Intake & Output 02/27/18 02/28/18 03/01/18 03/02/18 11:59 11:59 11:59 11:59 Intake Total 5532 / 5532 5996.0 / 5996.0 1465 / 1465 Output Total 1900 / 1900 4300 / 4300 2300 / 2300 Balance 3632 / 3632 1696.0 / 1696.0 -835 / -835 - Physical Exam Oriented: Normal Eyes: Normal Ear: Normal Nose: Normal Throat: Normal Respiratory: Normal Cardiovascular: Tachycardia. negative: S3, S4, Murmur : Normal Auscultation: Bowel Sounds: Normal Palpation: Normal Tenderness: Diffuse, Mild. negative: Rebound, Guarding, Rigidity Skin: Normal Musculoskeletal: Normal Psychiatric: Normal Mood Description: Calm Speech Pattern: Clear, Delayed - Laboratory and Diagnostics Result Diagrams: 03/01/18 05:06 03/01/18 11:05 Labs: 02/27/18 19:28 Blood Blood Culture - Preliminary 02/27/18 18:15 Blood Blood Culture - Preliminary Laboratory WBC 18.8 X10^3/uL (3.6-10.0) H D 03/01/18 05:06 RBC 3.81 X10^6/uL (4.7-6.0) L 03/01/18 05:06 Hgb 10.9 g/dL (13.5-18.0) L 03/01/18 05:06 Hct 32.0 % (42.0-54.0) L 03/01/18 05:06 MCV 84.0 fL (80.0-100.0) 03/01/18 05:06 MCH 28.6 pg (27.0-34.0) 03/01/18 05:06 MCHC 34.0 g/dL (33.0-35.0) 03/01/18 05:06 RDW 14.8 % (11.6-16.5) 03/01/18 05:06 Plt Count 186 X10^3/uL (150.0-450.0) 03/01/18 05:06 Plt Count Comment Adequate (ADEQUATE) 02/28/18 06:04 MPV 8.8 fL (7.4-11.0) 03/01/18 05:06 Neut % (Auto) 80.8 % (42.0-75.0) H 03/01/18 05:06 Lymph % (Auto) 12.1 % (21.0-51.0) L 03/01/18 05:06 [place] % (Auto) 7.0 % (0.0-13.0) 03/01/18 05:06 Eos % (Auto) 0.0 % (0.9-2.9) L 03/01/18 05:06 Baso % (Auto) 0.1 % (0.2-1.0) L 03/01/18 05:06 Neut # (Auto) 15.2 x10^3/uL (2.2-4.8) H 03/01/18 05:06 Lymph # (Auto) 2.3 X10^3/uL (1.3-2.9) 03/01/18 05:06 [place] # (Auto) 1.3 x10^3/uL (0.3-0.8) H 03/01/18 05:06 Eos # (Auto) 0.0 x10^3/uL (0.0-0.2) 03/01/18 05:06 Baso # (Auto) 0.0 X10^3/uL (0.0-0.1) 03/01/18 05:06 Absolute Nucleated RBC 0.0 /100WBC 03/01/18 05:06 Total Counted 100 02/28/18 06:04 Neutrophils % (Manual) 78 % (39-76) H 02/28/18 06:04 Band Neutrophils % 3 % (0-10) 02/28/18 06:04 Lymphocytes % (Manual) 15 % (13-43) 02/28/18 06:04 Monocytes % (Manual) 4 % (4-9) 02/28/18 06:04 Plt Morphology Comment Normal (NORMAL) 02/28/18 06:04 RBC Morphology Normal (NORMAL) 02/28/18 06:04 Sample Site Lb 02/28/18 06:11 ABG pH 7.420 (7.35-7.45) 02/28/18 06:11 ABG pCO2 34.0 mmHg (35.0-45.0) L 02/28/18 06:11 ABG pO2 87.0 mmHg (80.0-100.0) 02/28/18 06:11 ABG HCO3 22.1 mmol/L (22-26) 02/28/18 06:11 ABG O2 Saturation 97.0 % (90-100) 02/28/18 06:11 ABG Base Excess -1.8 mmol/L (-2.0-2.0) 02/28/18 06:11 Geoff Test N/a reece 02/28/18 06:11 A-a Gradient 20.0 mmHg 02/28/18 06:11 FiO2 21 02/28/18 06:11 Blood Gas Comments Reece abg well-mtf 02/28/18 06:11 Sodium 141 mmol/L (136-145) 03/01/18 05:06 Corrected Sodium 143 mmol/L (136-145) 03/01/18 05:06 Potassium 3.3 mmol/L (3.5-5.1) L 03/01/18 11:05 Chloride 103 mmol/L (98-107) 03/01/18 05:06 Carbon Dioxide 22.8 mmol/L (21-32) 03/01/18 05:06 BUN 3 mg/dL (7-18) L 03/01/18 05:06 Creatinine 0.72 mg/dL (0.70-1.30) 03/01/18 05:06 Est GFR (MDRD) Af Amer > 60 (>60) 03/01/18 05:06 Est GFR (MDRD) Non-Af > 60 (>60) 03/01/18 05:06 Glucose 198 mg/dL (65-99) H 03/01/18 05:06 POC Glucose (mg/dL) 267 mg/dL (65-99) H 03/01/18 19:48 Lactic Acid 2.0 mmol/L (0.4-2.0) 02/28/18 06:04 Calcium 7.9 mg/dL (8.5-10.1) L 03/01/18 05:06 Corrected Calcium 8.8 mg/dL (8.5-10.1) 03/01/18 05:06 Magnesium 1.8 mg/dL (1.7-2.9) 03/01/18 05:06 Total Bilirubin 0.70 mg/dL (0.2-1.0) 03/01/18 05:06 AST 21 Units/L (15-37) 03/01/18 05:06 ALT 17 Units/L (12-78) 03/01/18 05:06 Alkaline Phosphatase 89 Units/L (46-116) 03/01/18 05:06 Creatine Kinase 141 Units/L (39-308) 02/28/18 08:43 CK-MB (CK-2) 4.1 ng/mL (0-4.0) H 02/28/18 08:43 CK/CKMB % Calc 2.9 % (<4) 02/28/18 08:43 Troponin I 0.04 ng/mL (0-1.5) 02/28/18 08:43 Total Protein 6.1 g/dL (6.4-8.2) L 03/01/18 05:06 Albumin 2.9 g/dL (3.4-5.0) L 03/01/18 05:06 Globulin 3.2 g/dL (2.5-4.5) 03/01/18 05:06 Albumin/Globulin Ratio 0.9 Ratio (1.1-2.1) L 03/01/18 05:06 Specimen Type Catherized urine 02/27/18 20:30 Urine Color Yellow (YELLOW) 02/27/18 20:30 Urine Appearance Clear (CLEAR) 02/27/18 20:30 Urine pH 5.0 (5.0 - 8.0) 02/27/18 20:30 Ur Specific [place] 1.020 (1.000-1.030) 02/27/18 20:30 Urine Protein 2+ (NEGATIVE) 02/27/18 20:30 Urine Glucose (UA) 4+ (NEGATIVE) 02/27/18 20:30 Urine Ketones 4+ (NEGATIVE) 02/27/18 20:30 Urine Occult Blood 2+ (NEGATIVE) 02/27/18 20:30 Urine Nitrite Negative (NEGATIVE) 02/27/18 20:30 Urine Bilirubin Negative (NEGATIVE) 02/27/18 20:30 Urine Urobilinogen Normal (NORMAL) 02/27/18 20:30 Ur Leukocyte Esterase Negative (NEGATIVE) 02/27/18 20:30 Urine RBC 0-2 /HPF (NONE SEEN) 02/27/18 20:30 Urine WBC 0-2 /HPF (NONE SEEN) 02/27/18 20:30 Ur Squamous Epith Cells Rare /HPF (NEGATIVE) 02/27/18 20:30 Urine Bacteria Negative /HPF (NEGATIVE) 02/27/18 20:30 Ur Culture Indicated? No/not indicated 02/27/18 20:30 Urine Opiates Screen Negative (NEG=<300) 02/27/18 20:30 Urine Methadone Screen Positive (NEG=<300) 02/27/18 20:30 Ur Barbiturates Screen Negative (NEG=<200) 02/27/18 20:30 Ur Phencyclidine Scrn Negative (NEG=<25) 02/27/18 20:30 Ur Amphetamines Screen Positive (NEG=<1000) 02/27/18 20:30 U Benzodiazepines Scrn Positive (NEG=<200) 02/27/18 20:30 Urine Cocaine Screen Negative (NEG=<300) 02/27/18 20:30 U Marijuana (THC) Screen Negative (NEG=<50) 02/27/18 20:30 Acetone, Semi-Quant Small (NEGATIVE) H 03/01/18 05:06 - Plan (1) DKA (diabetic ketoacidoses) Status: Acute Qualifiers: Diabetes mellitus type: type 2 Diabetes mellitus complication detail: without coma Qualified Code(s): E11.10 - Type 2 diabetes mellitus with ketoacidosis without coma Plan: NORMAL SALINE, INSULIN DRIP, MONITOR OTBS (2) Dehydration Status: Acute Plan: NORMAL SALINE BOLUS X 2, THEN NORMAL SALINE @ 125ML/HR (3) Generalized weakness Status: Acute (4) Hypokalemia Status: Acute Plan: REPLACEMENT WITH PROTOCOL, CONTINUE TO MONITOR
[2018-03-01] MEDS: XANAX PO SCH (21:49)
[2018-03-01] MEDS: KLONOPIN TAB 1 MG PO SCH (21:50)
[2018-03-02] MEDS: NS 1000 ML 1,000 ML IV SCH ×2 (03:45→13:38)
[2018-03-02] MEDS ORDERED: NS 100 ML IV + SPIKE MINIBAG* 100 ML IV ONE ×3 (05:27→20:54)
[2018-03-02] MEDS: HumuLIN R SUBCUT PRN ×4 (05:38→21:44)
[2018-03-02] MEDS: XANAX PO SCH ×3 (05:39→21:03)
[2018-03-02] MEDS: PEPCID 20 MG IV PREMIX* 20 MG/50 ML BAG IV SCH (05:39)
[2018-03-02] MEDS: ZOSYN VIAL 2.25 GRAMS IV SCH ×3 (05:40→21:04)
[2018-03-02 06:18] LABS: BASOPHILS # (AUTO) 0.1 X10^3/uL (0.0-0.1); BASOPHILS % (AUTO) 0.5 % (0.2-1.0); EOSINOPHILS % (AUTO) 0.3 % (0.9-2.9); HEMATOCRIT 27.2 % (42.0-54.0); HEMOGLOBIN 9.3 g/dL (13.5-18.0); LYMPHOCYTES # (AUTO) 4.7 X10^3/uL (1.3-2.9); LYMPHOCYTES % (AUTO) 33.5 % (21.0-51.0); MEAN CORPUSCULAR HGB CONC 34.2 g/dL (33.0-35.0); MEAN CORPUSCULAR VOLUME 84.7 fL (80.0-100.0); MEAN PLATELET VOLUME 8.9 fL (7.4-11.0); MONOCYTES # (AUTO) 0.8 x10^3/uL (0.3-0.8); MONOCYTES % (AUTO) 5.4 % (0.0-13.0); NEUTROPHILS # (AUTO) 8.5 x10^3/uL (2.2-4.8); NEUTROPHILS % (AUTO) 60.3 % (42.0-75.0); PLATELET COUNT 153 X10^3/uL (150.0-450.0); RED BLOOD COUNT 3.21 X10^6/uL (4.7-6.0); RED CELL DISTRIBUTION WIDTH 14.3 % (11.6-16.5); WHITE BLOOD COUNT 14.1 X10^3/uL (3.6-10.0)
[2018-03-02 06:59] LABS: ALANINE AMINOTRANSFERASE 15 Units/L (12-78); ALBUMIN 2.4 g/dL (3.4-5.0); ALKALINE PHOSPHATASE 77 Units/L (46-116); ASPARTATE AMINO TRANSFERASE 12 Units/L (15-37); BLOOD UREA NITROGEN 6 mg/dL (7-18); CALCIUM 7.7 mg/dL (8.5-10.1); CARBON DIOXIDE 26.4 mmol/L (21-32); CHLORIDE 108 mmol/L (98-107); COR NA(FOR HYPERGLY) 145 mmol/L (136-145); SODIUM 142 mmol/L (136-145); TOTAL PROTEIN 5.2 g/dL (6.4-8.2); eGFR NON BLACK RACES > 60 (>60)
[2018-03-02] MEDS: METHADONE HCL PO PRN ×2 (09:15→15:11)
[2018-03-02] MEDS: COLACE CAP 100 MG PO SCH (09:40)
[2018-03-02] MEDS: LEVAQUIN PREMIX IV 750 MG 750 MG/150 ML BAG IV SCH (09:40)
[2018-03-02] MEDS: LINZESS PO SCH (09:40)
[2018-03-02] MEDS: MILK OF MAGNESIA PO SCH (09:41)
[2018-03-02] MEDS: PROCARDIA XL PO SCH (09:41)
[2018-03-02] MEDS: K-DUR TAB 20 MEQ PO PRN (09:45)
--- NOTE | 2018-03-02 16:22 | PCM.PROG ---
Progress Note - Progress Note for Day of Date of Exam: 03/02/18 - Subjective Subjective: WAS ADMITTED FOR DKA, DEHYDRATION, HYPOKALEMIA, AND WEAKNESS. TODAY, HE IS ALERT AND ORIENTED, LYING IN BED ON MORNING ROUNDS. HE CONTINUES WITH COMPLAINTS OF GENERALIZED WEAKNESS AND ABDOMINAL PAIN. ON EXAMINATION, HEART IS REGULAR IN RATE AND RHYTHM. BILATERAL LUNGS ARE NOTED WITH DIMINISHED LUNG SOUNDS THROUGHOUT. ABDOMEN IS FLAT, SOFT, AND NOTED WITH MILD, DIFFUSE TENDERNESS. HYPOACTIVE BOWEL SOUNDS NOTED IN ALL QUADRANTS. HIS VITALS THIS MORNING ARE 98.8-805-96-100%-126/85. LABS WERE OBTAINED. ABNORMAL LAB VALUES INCLUDE THE FOLLOWING: WBC DECREASED FROM 26.9 TO 18.8, RBC 3.81, HGB 10.9, HCT 32.0, POTASSIUM 3.1, BUN 3, GLUCOSE 198, CALCIUM 7.9, TOTAL PROTEIN 6.1, ALBUMIN 2.9. CARDIAC ENZYMES ARE WITHIN NORMAL LIMITS. BLOOD CULTURES ARE PENDING. HIS BLOOD SUGAR HAS REMAINED STABLE THROUGHOUT THE NIGHT. HE IS CURRENTLY RECEIVING IV ZOSYN AND LEVAQUIN OTHER. TODAY, WE WILL DISCONTINUE THE INSULINE DRIP AND START SLIDING SCALE NOVLIN R. OTHERWISE, WE WILL CONTINUE WITH CURRENT PLAN OF CARE. WE WILL FOLLOW UP WITH AM LABS AND CONTINUE TO MONITOR. - Past Medical Family Social History Past Med/Fam/Surg Hx: No changes since H&P Allergies: Allergies No Known Drug Allergies Allergy (Verified 02/27/18 16:56) - Review of Systems ROS: No change since H&P - Vital Signs and I&O's Vital Signs: Temperature 98.9 F Pulse Rate [Apical] 145 Pulse Rate 91 Respiratory Rate 8 Blood Pressure [Left Arm] 120/80 Blood Pressure [Right Arm] 104/59 Blood Pressure 99/69 O2 Sat by Pulse Oximetry 99 Intake and Output: Intake & Output 02/28/18 03/01/18 03/02/18 03/03/18 11:59 11:59 11:59 11:59 Intake Total 5532 / 5532 5996.0 / 5996.0 3590 / 3590 2004 Output Total 1900 / 1900 4300 / 4300 4025 / 4025 1994 / 1994 Balance 3632 / 3632 1696.0 / 1696.0 -435 / -435 - Physical Exam Oriented: Normal Eyes: Normal Ear: Normal Nose: Normal Throat: Normal Respiratory: Normal Cardiovascular: Tachycardia. negative: S3, S4, Murmur : Normal Auscultation: Bowel Sounds: Normal Palpation: Normal Tenderness: Diffuse, Mild. negative: Rebound, Guarding, Rigidity Skin: Normal Musculoskeletal: Normal Psychiatric: Normal Mood Description: Calm Speech Pattern: Clear - Laboratory and Diagnostics Result Diagrams: 03/02/18 04:05 03/02/18 04:05 Labs: 02/27/18 19:28 Blood Blood Culture - Preliminary 02/27/18 18:15 Blood Blood Culture - Preliminary Laboratory WBC 14.1 X10^3/uL (3.6-10.0) H 03/02/18 04:05 RBC 3.21 X10^6/uL (4.7-6.0) L 03/02/18 04:05 Hgb 9.3 g/dL (13.5-18.0) L 03/02/18 04:05 Hct 27.2 % (42.0-54.0) L 03/02/18 04:05 MCV 84.7 fL (80.0-100.0) 03/02/18 04:05 MCH 29.0 pg (27.0-34.0) 03/02/18 04:05 MCHC 34.2 g/dL (33.0-35.0) 03/02/18 04:05 RDW 14.3 % (11.6-16.5) 03/02/18 04:05 Plt Count 153 X10^3/uL (150.0-450.0) 03/02/18 04:05 Plt Count Comment Adequate (ADEQUATE) 02/28/18 06:04 MPV 8.9 fL (7.4-11.0) 03/02/18 04:05 Neut % (Auto) 60.3 % (42.0-75.0) 03/02/18 04:05 Lymph % (Auto) 33.5 % (21.0-51.0) 03/02/18 04:05 [place] % (Auto) 5.4 % (0.0-13.0) 03/02/18 04:05 Eos % (Auto) 0.3 % (0.9-2.9) L 03/02/18 04:05 Baso % (Auto) 0.5 % (0.2-1.0) 03/02/18 04:05 Neut # (Auto) 8.5 x10^3/uL (2.2-4.8) H 03/02/18 04:05 Lymph # (Auto) 4.7 X10^3/uL (1.3-2.9) H 03/02/18 04:05 [place] # (Auto) 0.8 x10^3/uL (0.3-0.8) 03/02/18 04:05 Eos # (Auto) 0.0 x10^3/uL (0.0-0.2) 03/02/18 04:05 Baso # (Auto) 0.1 X10^3/uL (0.0-0.1) 03/02/18 04:05 Absolute Nucleated RBC 0.0 /100WBC 03/02/18 04:05 Total Counted 100 02/28/18 06:04 Neutrophils % (Manual) 78 % (39-76) H 02/28/18 06:04 Band Neutrophils % 3 % (0-10) 02/28/18 06:04 Lymphocytes % (Manual) 15 % (13-43) 02/28/18 06:04 Monocytes % (Manual) 4 % (4-9) 02/28/18 06:04 Plt Morphology Comment Normal (NORMAL) 02/28/18 06:04 RBC Morphology Normal (NORMAL) 02/28/18 06:04 Sample Site [facility] 02/28/18 06:11 ABG pH 7.420 (7.35-7.45) 02/28/18 06:11 ABG pCO2 34.0 mmHg (35.0-45.0) L 02/28/18 06:11 ABG pO2 87.0 mmHg (80.0-100.0) 02/28/18 06:11 ABG HCO3 22.1 mmol/L (22-26) 02/28/18 06:11 ABG O2 Saturation 97.0 % (90-100) 02/28/18 06:11 ABG Base Excess -1.8 mmol/L (-2.0-2.0) 02/28/18 06:11 Geoff Test N/a reece 02/28/18 06:11 A-a Gradient 20.0 mmHg 02/28/18 06:11 FiO2 21 02/28/18 06:11 Blood Gas Comments Reece abg well-mtf 02/28/18 06:11 Sodium 142 mmol/L (136-145) 03/02/18 04:05 Corrected Sodium 145 mmol/L (136-145) 03/02/18 04:05 Potassium 3.4 mmol/L (3.5-5.1) L 03/02/18 04:05 Chloride 108 mmol/L (98-107) H 03/02/18 04:05 Carbon Dioxide 26.4 mmol/L (21-32) 03/02/18 04:05 BUN 6 mg/dL (7-18) L 03/02/18 04:05 Creatinine 0.70 mg/dL (0.70-1.30) 03/02/18 04:05 Est GFR (MDRD) Af Amer > 60 (>60) 03/02/18 04:05 Est GFR (MDRD) Non-Af > 60 (>60) 03/02/18 04:05 Glucose 214 mg/dL (65-99) H 03/02/18 04:05 POC Glucose (mg/dL) 231 mg/dL (65-99) H 03/02/18 15:53 Lactic Acid 2.0 mmol/L (0.4-2.0) 02/28/18 06:04 Calcium 7.7 mg/dL (8.5-10.1) L 03/02/18 04:05 Corrected Calcium 9.0 mg/dL (8.5-10.1) 03/02/18 04:05 Magnesium 1.8 mg/dL (1.7-2.9) 03/01/18 05:06 Total Bilirubin 0.60 mg/dL (0.2-1.0) 03/02/18 04:05 AST 12 Units/L (15-37) L 03/02/18 04:05 ALT 15 Units/L (12-78) 03/02/18 04:05 Alkaline Phosphatase 77 Units/L (46-116) 03/02/18 04:05 Creatine Kinase 141 Units/L (39-308) 02/28/18 08:43 CK-MB (CK-2) 4.1 ng/mL (0-4.0) H 02/28/18 08:43 CK/CKMB % Calc 2.9 % (<4) 02/28/18 08:43 Troponin I 0.04 ng/mL (0-1.5) 02/28/18 08:43 Total Protein 5.2 g/dL (6.4-8.2) L 03/02/18 04:05 Albumin 2.4 g/dL (3.4-5.0) L 03/02/18 04:05 Globulin 2.8 g/dL (2.5-4.5) 03/02/18 04:05 Albumin/Globulin Ratio 0.9 Ratio (1.1-2.1) L 03/02/18 04:05 Specimen Type Catherized urine 02/27/18 20:30 Urine Color Yellow (YELLOW) 02/27/18 20:30 Urine Appearance Clear (CLEAR) 02/27/18 20:30 Urine pH 5.0 (5.0 - 8.0) 02/27/18 20:30 Ur Specific [place] 1.020 (1.000-1.030) 02/27/18 20:30 Urine Protein 2+ (NEGATIVE) 02/27/18 20:30 Urine Glucose (UA) 4+ (NEGATIVE) 02/27/18 20:30 Urine Ketones 4+ (NEGATIVE) 02/27/18 20:30 Urine Occult Blood 2+ (NEGATIVE) 02/27/18 20:30 Urine Nitrite Negative (NEGATIVE) 02/27/18 20:30 Urine Bilirubin Negative (NEGATIVE) 02/27/18 20:30 Urine Acetone Small (NEGATIVE) 03/02/18 08:47 Urine Urobilinogen Normal (NORMAL) 02/27/18 20:30 Ur Leukocyte Esterase Negative (NEGATIVE) 02/27/18 20:30 Urine RBC 0-2 /HPF (NONE SEEN) 02/27/18 20:30 Urine WBC 0-2 /HPF (NONE SEEN) 02/27/18 20:30 Ur Squamous Epith Cells Rare /HPF (NEGATIVE) 02/27/18 20:30 Urine Bacteria Negative /HPF (NEGATIVE) 02/27/18 20:30 Ur Culture Indicated? No/not indicated 02/27/18 20:30 Urine Opiates Screen Negative (NEG=<300) 02/27/18 20:30 Urine Methadone Screen Positive (NEG=<300) 02/27/18 20:30 Ur Barbiturates Screen Negative (NEG=<200) 02/27/18 20:30 Ur Phencyclidine Scrn Negative (NEG=<25) 02/27/18 20:30 Ur Amphetamines Screen Positive (NEG=<1000) 02/27/18 20:30 U Benzodiazepines Scrn Positive (NEG=<200) 02/27/18 20:30 Urine Cocaine Screen Negative (NEG=<300) 02/27/18 20:30 U Marijuana (THC) Screen Negative (NEG=<50) 02/27/18 20:30 Acetone, Semi-Quant Small (NEGATIVE) H 03/01/18 05:06 - Plan (1) DKA (diabetic ketoacidoses) Status: Acute Qualifiers: Diabetes mellitus type: type 2 Diabetes mellitus complication detail: without coma Qualified Code(s): E11.10 - Type 2 diabetes mellitus with ketoacidosis without coma Plan: NORMAL SALINE, MONITOR NOVLIN R SLIDING SCALE, CONTINUE TO MONITOR OTBS (2) Dehydration Status: Acute Plan: NORMAL SALINE @ 125ML/HR (3) Generalized weakness Status: Acute (4) Hypokalemia Status: Acute Plan: REPLACEMENT WITH PROTOCOL, CONTINUE TO MONITOR
[2018-03-02] MEDS: SNACK - Diabetic Appropriate PO SCH (20:30)
[2018-03-02] MEDS: KLONOPIN TAB 1 MG PO SCH (21:03)
[2018-03-03] MEDS ORDERED: NS 100 ML IV + SPIKE MINIBAG* 100 ML IV ONE (05:31)
[2018-03-03] MEDS: PEPCID 20 MG IV PREMIX* 20 MG/50 ML BAG IV SCH (05:40)
[2018-03-03] MEDS: XANAX PO SCH (05:40)
[2018-03-03] MEDS: HumuLIN R SUBCUT PRN ×2 (06:04→11:40)
[2018-03-03] MEDS: ZOSYN VIAL 2.25 GRAMS IV SCH (06:04)
[2018-03-03] MEDS: METHADONE HCL PO PRN ×2 (06:22→12:12)
[2018-03-03 06:32] LABS: BASOPHILS % (AUTO) 0.6 % (0.2-1.0); EOSINOPHILS # (AUTO) 0.1 x10^3/uL (0.0-0.2); EOSINOPHILS % (AUTO) 1.4 % (0.9-2.9); HEMATOCRIT 25.8 % (42.0-54.0); HEMOGLOBIN 8.8 g/dL (13.5-18.0); LYMPHOCYTES # (AUTO) 3.7 X10^3/uL (1.3-2.9); LYMPHOCYTES % (AUTO) 49.2 % (21.0-51.0); MEAN CORPUSCULAR HEMOGLOBIN 29.3 pg (27.0-34.0); MEAN CORPUSCULAR VOLUME 86.2 fL (80.0-100.0); MEAN PLATELET VOLUME 8.6 fL (7.4-11.0); MONOCYTES # (AUTO) 0.5 x10^3/uL (0.3-0.8); MONOCYTES % (AUTO) 6.3 % (0.0-13.0); NEUTROPHILS # (AUTO) 3.2 x10^3/uL (2.2-4.8); NEUTROPHILS % (AUTO) 42.5 % (42.0-75.0); PLATELET COUNT 134 X10^3/uL (150.0-450.0); RED BLOOD COUNT 2.99 X10^6/uL (4.7-6.0); RED CELL DISTRIBUTION WIDTH 14.3 % (11.6-16.5); WHITE BLOOD COUNT 7.4 X10^3/uL (3.6-10.0)
[2018-03-03 06:43] LABS: ALANINE AMINOTRANSFERASE 14 Units/L (12-78); ALBUMIN 2.3 g/dL (3.4-5.0); ALKALINE PHOSPHATASE 69 Units/L (46-116); ASPARTATE AMINO TRANSFERASE 9 Units/L (15-37); BLOOD UREA NITROGEN 7 mg/dL (7-18); CALCIUM 7.6 mg/dL (8.5-10.1); CARBON DIOXIDE 26.9 mmol/L (21-32); CHLORIDE 110 mmol/L (98-107); COR NA(FOR HYPERGLY) 149 mmol/L (136-145); CREATININE 0.59 mg/dL (0.70-1.30); SODIUM 144 mmol/L (136-145); TOTAL PROTEIN 4.9 g/dL (6.4-8.2); eGFR NON BLACK RACES > 60 (>60)
[2018-03-03] MEDS: PHENERGAN INJ 25 MG IV PRN (07:11)
[2018-03-03] MEDS: LEVAQUIN PREMIX IV 750 MG 750 MG/150 ML BAG IV SCH (08:04)
[2018-03-03] MEDS: LINZESS PO SCH (08:05)
[2018-03-03] MEDS: MILK OF MAGNESIA PO SCH (08:05)
[2018-03-03] MEDS: COLACE CAP 100 MG PO SCH (08:05)
[2018-03-03] MEDS: PROCARDIA XL PO SCH (08:11)
[2018-03-03] MEDS: K-DUR TAB 20 MEQ PO PRN (11:20)
[2018-03-03 13:13] VITALS: BP 130/91
== END 2018-03-03 13:00 | disposition home or self-care (01) | DRG 639 ==
LOC: ER 16:37 → ICU 20:07
PROVIDERS: ADMIT Internal Medicine; ATTEND Internal Medicine
DX: R53.1 Weakness; R00.0 Tachycardia, unspecified; E86.0 Dehydration; E87.6 Hypokalemia; E11.65 Type 2 diabetes mellitus with hyperglycemia; E11.10 Type 2 diabetes mellitus with ketoacidosis without coma; R94.31 Abnormal electrocardiogram [ECG] [EKG]
CPT/HCPCS: 36415; 36600; 51702; 71010; 71045; 80048; 80053; 80307; 81001; 82009; 82550; 82553; 82803; 82947; 83605; 83735; 84132; 84484; 85025; 87040; 93005; 93041; 96365; 96367; 96374; 96375; 99238; 99283; 99285; A4222; S0028; S0109; G0434; J1642; J1815; J1956; J2405; J2543; J2550; J3475; J3490; J7030; J7050

== ENCOUNTER 2018-04-14 19:52 | Inpatient (IN) ==
[2018-04-14 20:33] LABS: ABG HCO3 4.8 mmol/L (22-26)
[2018-04-14] MEDS ORDERED: NS 1000 ML 1,000 ML IV ONE ×2 (20:34→21:47)
[2018-04-14] MEDS ORDERED: NS 1000 ML 1,000 ML ONE ×2 (20:37→21:45)
[2018-04-14 20:45] LABS: BILIRUBIN,URINE NEGATIVE (NEGATIVE); BLOOD/HEMOGLOBIN,URINE NEGATIVE (NEGATIVE); GLUCOSE, URINE 4+ (NEGATIVE); KETONES,URINE 4+ (NEGATIVE); LEUKOCYTE ESTERASE ,URINE NEGATIVE (NEGATIVE); NITRITES,URINE NEGATIVE (NEGATIVE); PROTEIN,URINE 1+ (NEGATIVE); UROBILINOGEN,URINE NORMAL (NORMAL)
[2018-04-14 20:57] LABS: APPEARANCE,URINE CLEAR (CLEAR); COLOR,URINE YELLOW (YELLOW); RBC,URINE NONE SEEN /HPF (NONE SEEN)
[2018-04-14 20:58] LABS: BACTERIA,URINE NEGATIVE /HPF (NEGATIVE); SQUAMOUS EPITHELIAL CELL,UR NEGATIVE /HPF (NEGATIVE)
[2018-04-14 21:09] LABS: BASOPHILS # (AUTO) 0.1 X10^3/uL (0.0-0.1); BASOPHILS % (AUTO) 0.5 % (0.2-1.0); HEMATOCRIT 44.8 % (42.0-54.0); HEMOGLOBIN 14.3 g/dL (13.5-18.0); LYMPHOCYTES # (AUTO) 2.2 X10^3/uL (1.3-2.9); LYMPHOCYTES % (AUTO) 10.1 % (21.0-51.0); MEAN CORPUSCULAR HEMOGLOBIN 28.9 pg (27.0-34.0); MEAN CORPUSCULAR VOLUME 90.3 fL (80.0-100.0); MEAN PLATELET VOLUME 8.6 fL (7.4-11.0); MONOCYTES # (AUTO) 1.4 x10^3/uL (0.3-0.8); MONOCYTES % (AUTO) 6.6 % (0.0-13.0); NEUTROPHILS # (AUTO) 18.2 x10^3/uL (2.2-4.8); NEUTROPHILS % (AUTO) 82.8 % (42.0-75.0); PLATELET COUNT 369 X10^3/uL (150.0-450.0); RED BLOOD COUNT 4.96 X10^6/uL (4.7-6.0); RED CELL DISTRIBUTION WIDTH 14.5 % (11.6-16.5); WHITE BLOOD COUNT 21.9 X10^3/uL (3.6-10.0)
[2018-04-14] MEDS ORDERED: ZOFRAN INJ 4 MG VIAL IVP ONE (21:13)
[2018-04-14] MEDS ORDERED: ZOFRAN INJ 4 MG VIAL ONE (21:14)
--- NOTE | 2018-04-14 21:15 | DR.HYPOGLY ---
HPI Time Seen Time Seen by Provider: 04/14/18 19:57 PCP Primary Care Physician: KRYS HPI Comment HPI Comment: HERE VIA EMS. SICK FOR FEW DAYS WITH PROGRESSIVE WEAKNESS, NAUSEA AND VOMITING. GLUCOSE RUNNING HIGH. PATIENT SAID HE IS COMPLIANT WITH MED ICATION. NO FEVER OR DYSURIA. Complaint Chief Complaint Doctors Comments: WEAKNESS, NAUSEA, VOMITING WITH RAPI BRATHING. HISTORY DKA. Chief Complaint:: EMS WAS DISPATCHED OUT TO PATIENT TO [facility] BREATHING UPON ARRIVAL O2 WAS 92% ON ROOM AIR GLUCOSE CHECKED ON SCENE AND WAS 519. PATIENT STATES THAT HE HAS BEEN LIKE THIS FOR ABOUT WEEK. PATIENT STATES THAT HES BEEN CHECKING HIS SUGAR AND IT HAS NOT BEEN THIS ELEVATED. Nurses notes reviewed Nurses Notes Review: Yes Source History Provided: Patient Mode of Arrival Mode of Arrival: Wheelchair Timing Onset of Chief Complaint: 04/14/18 Came on: Suddenly Duration Duration: Constant Duration: Days Context [place]: Shaky Symptoms: Shaky and Generalized weakness History of: Diabetes, Insulin use and Hyperglycemic episodes PMH PMH Past Medical History: Yes Past Medical History: Diabetes Past Surgical History: Yes Surgical History: Other Family History History of Family Medical Conditions: Yes Family Medical History: Diabetes Mellitus, Sudden Cardiac and Hypertension Social History Do you use any recreational Drugs:: Yes infectious screening Have you traveled outside the country in the last 6 months?: No ROS Review of Systems Constitutional: Malaise, Weakness and Fatigue Eyes: negative Eye Pain and Discharge ENTM: No Symptoms Reported Respiratoy: Short of Breath and Other (RAPID BREATHING.) Cardiovascular: No Symptoms Reported and See HPI Gastrointestinal/Abdominal: Abdominal Pain, Nausea and Vomiting Genitourinary: Other (DECREASE URINE OUT PUT.) Neurological: Weakness and Dizziness Musculoskeletal: Muscle Pain Integumentary: Dryness Hematologic/Lymphatic: No Symptoms Reported Endocrine: Increased Thirst, Unexplained Weight Loss and Decreased Appetite All Other Systems: Reviewed and Negative PE Vital Signs Vitals: Temperature 99.3 F Pulse Rate [Brachial] 125 Pulse Rate 99 Respiratory Rate 20 Blood Pressure [Left Arm] 142/89 Blood Pressure [Right Arm] 104/59 Blood Pressure 145/85 O2 Sat by Pulse Oximetry 100 General Limitations: No Limitations General Appearance: Alert and Other (GENERALIZE WEAKNESS.) Eyes Eye exam: PERRL; negative Scleral Icterus and Conjunctival Injection Pupils: Regular, Round: Bilateral and Reactive: Bilateral ENT ENT Exam: Normal Exam and Normal External Ear Exam Nose Exam: Normal Nose Exam Mouth Exam: Normal Inspection Throat Exam: Normal Inspection Neck Neck Exam: Normal Inspection Chest Chest Inspection: Normal Inspection Respiratory Respiratory Exam: Normal Lung Sounds Bilat Respiratory Exam: Bilateral: Rhonchi and Lower: Rhonchi Cardiovascular Cardiovascular Exam: Regular Rate and Normal Rhythm Abdominal Exam Abdominal Exam: Normal Bowel Sounds, Soft and Tenderness Abdominal Tenderness: Diffuse and Moderate Extremities Extremities Exam: Normal Inspection Back Back Exam: Normal Inspection Neurologic Neurological Exam: Alert and Oriented X3; negative Motor Sensory Deficit Cranial Nerve Exam: EOM Function (II, III, IV, ): Normal, Facial Sensation (V): Normal, Facial Palsy (VII): Normal, Gag reflex (XI): Normal and Tongue Deviation: Normal Motor Strength - LUE: 5/5 Motor Strength - RUE: 5/5 Motor Strength - LLE: 5/5 Motor Strength - RLE: 5/5 Upper Motor Neuron Exam: Babinski Sign: Normal Psychiatric Psychiatric Exam: Normal Affect and Anxious Skin Skin Exam: Dry MDM Differential diagnosis Induced by: Insulin (DKA, DEHYDRATION, ABDOMINAL PAIN, PNEUMONIA, UTI) COURSE Treatment Treatment: SEE ORDERS. IV NS BBOLUS TIMES 2 THE IV INSULIN AND INSULIN DRIP. ROR Labs Reviewed Laboratory Results Reviewed?: Yes Result Diagrams: 04/15/18 06:11 04/15/18 06:11 Laboratory: WBC 13.8 X10^3/uL (3.6-10.0) H D 04/15/18 06:11 RBC 4.54 X10^6/uL (4.7-6.0) L 04/15/18 06:11 Hgb 12.9 g/dL (13.5-18.0) L 04/15/18 06:11 Hct 39.2 % (42.0-54.0) L 04/15/18 06:11 MCV 86.5 fL (80.0-100.0) 04/15/18 06:11 MCH 28.3 pg (27.0-34.0) 04/15/18 06:11 MCHC 32.8 g/dL (33.0-35.0) L 04/15/18 06:11 RDW 14.4 % (11.6-16.5) 04/15/18 06:11 Plt Count 295 X10^3/uL (150.0-450.0) 04/15/18 06:11 Plt Count Comment Adequate (ADEQUATE) 04/14/18 20:50 MPV 8.5 fL (7.4-11.0) 04/15/18 06:11 Neut % (Auto) 74.6 % (42.0-75.0) 04/15/18 06:11 Lymph % (Auto) 18.1 % (21.0-51.0) L 04/15/18 06:11 [place] % (Auto) 7.0 % (0.0-13.0) 04/15/18 06:11 Eos % (Auto) 0.0 % (0.9-2.9) L 04/15/18 06:11 Baso % (Auto) 0.3 % (0.2-1.0) 04/15/18 06:11 Neut # (Auto) 10.3 x10^3/uL (2.2-4.8) H 04/15/18 06:11 Lymph # (Auto) 2.5 X10^3/uL (1.3-2.9) 04/15/18 06:11 [place] # (Auto) 1.0 x10^3/uL (0.3-0.8) H 04/15/18 06:11 Eos # (Auto) 0.0 x10^3/uL (0.0-0.2) 04/15/18 06:11 Baso # (Auto) 0.0 X10^3/uL (0.0-0.1) 04/15/18 06:11 Absolute Nucleated RBC 0.2 /100WBC 04/15/18 06:11 Total Counted 100 04/14/18 20:50 Neutrophils % (Manual) 76 % (39-76) 04/14/18 20:50 Band Neutrophils % 4 % (0-10) 04/14/18 20:50 Lymphocytes % (Manual) 14 % (13-43) 04/14/18 20:50 Monocytes % (Manual) 6 % (4-9) 04/14/18 20:50 Plt Morphology Comment Normal (NORMAL) 04/14/18 20:50 RBC Morphology Normal (NORMAL) 04/14/18 20:50 Sample Site Lbra 04/15/18 06:54 ABG pH 7.370 (7.35-7.45) 04/15/18 06:54 ABG pCO2 25.0 mmHg (35.0-45.0) L 04/15/18 06:54 ABG pO2 103.0 mmHg (80.0-100.0) H 04/15/18 06:54 ABG HCO3 14.5 mmol/L (22-26) L* 04/15/18 06:54 ABG O2 Saturation 98.0 % (90-100) 04/15/18 06:54 ABG Base Excess -9.1 mmol/L (-2.0-2.0) L 04/15/18 06:54 Geoff Test Na 04/15/18 06:54 A-a Gradient 15.0 mmHg 04/15/18 06:54 FiO2 21.0 04/15/18 06:54 Blood Gas Comments Marva abg well-mtf 04/15/18 06:54 Sodium 142 mmol/L (136-145) 04/15/18 06:11 Corrected Sodium 145 mmol/L (136-145) 04/15/18 06:11 Potassium 3.9 mmol/L (3.5-5.1) 04/15/18 06:11 Chloride 109 mmol/L (98-107) H 04/15/18 06:11 Carbon Dioxide 15.8 mmol/L (21-32) L 04/15/18 06:11 BUN 15 mg/dL (7-18) 04/15/18 06:11 Creatinine 1.00 mg/dL (0.70-1.30) 04/15/18 06:11 Est GFR (MDRD) Af Amer > 60 (>60) 04/15/18 06:11 Est GFR (MDRD) Non-Af > 60 (>60) 04/15/18 06:11 Glucose 239 mg/dL (65-99) H 04/15/18 06:11 POC Glucose (mg/dL) 153 mg/dL (65-99) H 04/16/18 02:35 Hemoglobin A1c 8.7 % 04/14/18 20:50 Calcium 9.4 mg/dL (8.5-10.1) 04/15/18 06:11 Corrected Calcium TNP 04/15/18 06:11 Phosphorus 6.8 mg/dL (2.6-4.7) H 04/14/18 20:50 Magnesium 1.7 mg/dL (1.7-2.9) 04/14/18 20:50 Total Bilirubin 0.60 mg/dL (0.2-1.0) 04/15/18 06:11 AST 11 Units/L (15-37) L 04/15/18 06:11 ALT 16 Units/L (12-78) 04/15/18 06:11 Alkaline Phosphatase 78 Units/L (46-116) 04/15/18 06:11 Total Protein 7.9 g/dL (6.4-8.2) 04/15/18 06:11 Albumin 3.9 g/dL (3.4-5.0) 04/15/18 06:11 Globulin 4.0 g/dL (2.5-4.5) 04/15/18 06:11 Albumin/Globulin Ratio 1.0 Ratio (1.1-2.1) L 04/15/18 06:11 Amylase 20 Units/L (25-115) L 04/14/18 20:50 Lipase 40 Units/L (73-393) L 04/14/18 20:50 Specimen Type Catherized urine 04/15/18 02:32 Urine Color Yellow (YELLOW) 04/15/18 02:32 Urine Appearance Clear (CLEAR) 04/15/18 02:32 Urine pH 5.0 (5.0 - 8.0) 04/15/18 02:32 Ur Specific Sabael 1.020 (1.000-1.030) 04/15/18 02:32 Urine Protein 2+ (NEGATIVE) 04/15/18 02:32 Urine Glucose (UA) 4+ (NEGATIVE) 04/15/18 02:32 Urine Ketones 4+ (NEGATIVE) 04/15/18 02:32 Urine Occult Blood 1+ (NEGATIVE) 04/15/18 02:32 Urine Nitrite Negative (NEGATIVE) 04/15/18 02:32 Urine Bilirubin Negative (NEGATIVE) 04/15/18 02:32 Urine Acetone Large (NEGATIVE) 04/15/18 02:32 Urine Urobilinogen Normal (NORMAL) 04/15/18 02:32 Ur Leukocyte Esterase Negative (NEGATIVE) 04/15/18 02:32 Urine RBC 3-5 /HPF (NONE SEEN) 04/15/18 02:32 Urine WBC 0-2 /HPF (NONE SEEN) 04/15/18 02:32 Ur Squamous Epith Cells Rare /HPF (NEGATIVE) 04/15/18 02:32 Amorphous Sediment Trace /HPF (NEGATIVE) 04/15/18 02:32 Urine Bacteria Negative /HPF (NEGATIVE) 04/15/18 02:32 Ur Culture Indicated? No/not indicated 04/15/18 02:32 Acetone, Semi-Quant Large (NEGATIVE) H 04/14/18 20:50 XRAY XRAY Interpreted by: Radiologist XRAY Findings: REPORT DISCUSS WITH PATIENT.
[2018-04-14 21:16] LABS: BAND NEUTROPHILS % 4 % (0-10)
[2018-04-14 21:17] LABS: ALANINE AMINOTRANSFERASE 16 Units/L (12-78); ALBUMIN 4.5 g/dL (3.4-5.0); ALKALINE PHOSPHATASE 95 Units/L (46-116); ASPARTATE AMINO TRANSFERASE 15 Units/L (15-37); BLOOD UREA NITROGEN 21 mg/dL (7-18); CALCIUM 9.9 mg/dL (8.5-10.1); CHLORIDE 98 mmol/L (98-107); COR NA(FOR HYPERGLY) 145 mmol/L (136-145); PLATELET MORPHOLOGY COMMENT NORMAL (NORMAL); SODIUM 136 mmol/L (136-145); TOTAL PROTEIN 9.1 g/dL (6.4-8.2); eGFR NON BLACK RACES 52 (>60)
[2018-04-14 21:19] LABS: SERUM ACETONE LARGE (NEGATIVE)
--- NOTE | 2018-04-14 22:35 | RAD ---
Acute abdomen Reported By:
[2018-04-14] MEDS ORDERED: HumuLIN R SUBCUT STA (23:03)
[2018-04-14] MEDS ORDERED: HumuLIN R ONE (23:06)
[2018-04-14] MEDS ORDERED: PHENERGAN INJ 25 MG IVP ONE (23:42)
[2018-04-14] MEDS ORDERED: PHENERGAN INJ 25 MG ONE (23:44)
[2018-04-15] MEDS ORDERED: SODIUM BICARBONATE 8.4% INJ ADULT IVP PRN (01:02)
[2018-04-15] MEDS ORDERED: HumuLIN R IV PRN ×2 (01:02→01:18)
[2018-04-15] MEDS ORDERED: D50W ABBOJECT SYR IV PRN ×2 (01:02→01:18)
[2018-04-15] MEDS ORDERED: MAGNESIUM SULFATE 1 GRAM/100 mL PREMIX 2 GM/200 ML BAG IV PRN (01:02)
[2018-04-15] MEDS ORDERED: D5 1/2 NS + KCL 20 MEQ/L 1,000 ML IV PRN (01:02)
[2018-04-15] MEDS ORDERED: NS + KCL 40 MEQ/L 1,000 ML IV PRN (01:02)
[2018-04-15] MEDS ORDERED: NS 1000 ML 1,000 ML IV PRN (01:02)
[2018-04-15] MEDS ORDERED: HumuLIN R ONE (01:32)
[2018-04-15] MEDS ORDERED: NS 100 ML IV 100 ML IV ONE (01:32)
[2018-04-15 01:39] LABS: HEMOGLOBIN A1C 8.7 %; MAGNESIUM 1.7 mg/dL (1.7-2.9); PHOSPHORUS 6.8 mg/dL (2.6-4.7)
[2018-04-15] MEDS: HumuLIN R SUBCUT PRN (01:39)
[2018-04-15] MEDS ORDERED: NS 1000 ML 1,000 ML IV ONE (02:20)
[2018-04-15 02:40] LABS: BILIRUBIN,URINE NEGATIVE (NEGATIVE); BLOOD/HEMOGLOBIN,URINE 1+ (NEGATIVE); GLUCOSE, URINE 4+ (NEGATIVE); KETONES,URINE 4+ (NEGATIVE); LEUKOCYTE ESTERASE ,URINE NEGATIVE (NEGATIVE); NITRITES,URINE NEGATIVE (NEGATIVE); PROTEIN,URINE 2+ (NEGATIVE); UROBILINOGEN,URINE NORMAL (NORMAL)
[2018-04-15 02:46] LABS: AMORPHOUS SEDIMENT,UR TRACE /HPF (NEGATIVE); APPEARANCE,URINE CLEAR (CLEAR); BACTERIA,URINE NEGATIVE /HPF (NEGATIVE); COLOR,URINE YELLOW (YELLOW); SQUAMOUS EPITHELIAL CELL,UR RARE /HPF (NEGATIVE)
[2018-04-15] MEDS: MAGNESIUM SULFATE 1 GRAM/100 mL PREMIX 1 GM/100 ML BAG IV PRN (02:50)
[2018-04-15 03:15] VITALS: BMI 16.9
[2018-04-15] MEDS ORDERED: HumuLIN R IV ONE ×3 (03:36→06:29)
[2018-04-15 07:05] LABS: ABG BASE EXCESS -9.1 mmol/L (-2.0-2.0)
[2018-04-15 07:06] LABS: ABG HCO3 14.5 mmol/L (22-26)
[2018-04-15 07:19] LABS: BASOPHILS % (AUTO) 0.3 % (0.2-1.0); HEMATOCRIT 39.2 % (42.0-54.0); HEMOGLOBIN 12.9 g/dL (13.5-18.0); LYMPHOCYTES # (AUTO) 2.5 X10^3/uL (1.3-2.9); LYMPHOCYTES % (AUTO) 18.1 % (21.0-51.0); MEAN CORPUSCULAR HEMOGLOBIN 28.3 pg (27.0-34.0); MEAN CORPUSCULAR HGB CONC 32.8 g/dL (33.0-35.0); MEAN CORPUSCULAR VOLUME 86.5 fL (80.0-100.0); MEAN PLATELET VOLUME 8.5 fL (7.4-11.0); NEUTROPHILS # (AUTO) 10.3 x10^3/uL (2.2-4.8); NEUTROPHILS % (AUTO) 74.6 % (42.0-75.0); PLATELET COUNT 295 X10^3/uL (150.0-450.0); RED BLOOD COUNT 4.54 X10^6/uL (4.7-6.0); RED CELL DISTRIBUTION WIDTH 14.4 % (11.6-16.5); WHITE BLOOD COUNT 13.8 X10^3/uL (3.6-10.0)
[2018-04-15 07:53] LABS: ALANINE AMINOTRANSFERASE 16 Units/L (12-78); ALBUMIN 3.9 g/dL (3.4-5.0); ALKALINE PHOSPHATASE 78 Units/L (46-116); ASPARTATE AMINO TRANSFERASE 11 Units/L (15-37); BLOOD UREA NITROGEN 15 mg/dL (7-18); CALCIUM 9.4 mg/dL (8.5-10.1); CARBON DIOXIDE 15.8 mmol/L (21-32); COR NA(FOR HYPERGLY) 145 mmol/L (136-145); SODIUM 142 mmol/L (136-145); TOTAL PROTEIN 7.9 g/dL (6.4-8.2); eGFR NON BLACK RACES > 60 (>60)
[2018-04-15 08:03] LABS: CHLORIDE 109 mmol/L (98-107)
[2018-04-15] MEDS ORDERED: LEVEMIR SC SCH (09:00)
[2018-04-15] MEDS: NS 1000 ML 1,000 ML with SODIUM BICARBONATE 8.4% INJ ADULT 50 ML IV SCH ×4 (09:54→17:23)
[2018-04-15] MEDS ORDERED: NS 1000 ML 1,000 ML ONE (17:09)
[2018-04-15] MEDS ORDERED: SNACK - Diabetic Appropriate PO SCH (20:00)
[2018-04-15] MEDS: SNACK - Diabetic Appropriate PO SCH (20:25)
[2018-04-15] MEDS ORDERED: PHENERGAN INJ 25 MG ONE (22:25)
[2018-04-15] MEDS: PHENERGAN INJ 25 MG IV PRN (22:33)
[2018-04-16] MEDS: NS 1000 ML 1,000 ML with SODIUM BICARBONATE 8.4% INJ ADULT 50 ML IV SCH ×4 (01:31→02:05)
[2018-04-16 05:47] LABS: ABG BASE EXCESS 2.9 mmol/L (-2.0-2.0); ABG HCO3 25.3 mmol/L (22-26)
[2018-04-16 05:48] LABS: ABG ALLEN TEST POS
[2018-04-16 06:24] LABS: BASOPHILS % (AUTO) 0.3 % (0.2-1.0); HEMOGLOBIN 11.8 g/dL (13.5-18.0); LYMPHOCYTES % (AUTO) 16.7 % (21.0-51.0); MEAN CORPUSCULAR HEMOGLOBIN 28.5 pg (27.0-34.0); MEAN CORPUSCULAR HGB CONC 33.9 g/dL (33.0-35.0); MEAN CORPUSCULAR VOLUME 84.1 fL (80.0-100.0); MEAN PLATELET VOLUME 8.8 fL (7.4-11.0); MONOCYTES # (AUTO) 0.8 x10^3/uL (0.3-0.8); MONOCYTES % (AUTO) 6.8 % (0.0-13.0); NEUTROPHILS # (AUTO) 9.2 x10^3/uL (2.2-4.8); NEUTROPHILS % (AUTO) 76.2 % (42.0-75.0); PLATELET COUNT 255 X10^3/uL (150.0-450.0); RED BLOOD COUNT 4.16 X10^6/uL (4.7-6.0); WHITE BLOOD COUNT 12.1 X10^3/uL (3.6-10.0)
[2018-04-16 06:41] LABS: ALANINE AMINOTRANSFERASE 12 Units/L (12-78); ALBUMIN 3.4 g/dL (3.4-5.0); ALKALINE PHOSPHATASE 64 Units/L (46-116); ASPARTATE AMINO TRANSFERASE 13 Units/L (15-37); BLOOD UREA NITROGEN 7 mg/dL (7-18); CALCIUM 8.8 mg/dL (8.5-10.1); CARBON DIOXIDE 21.3 mmol/L (21-32); CHLORIDE 106 mmol/L (98-107); COR NA(FOR HYPERGLY) 145 mmol/L (136-145); CREATININE 0.56 mg/dL (0.70-1.30); MAGNESIUM 1.6 mg/dL (1.7-2.9); PHOSPHORUS 1.8 mg/dL (2.6-4.7); SODIUM 144 mmol/L (136-145); TOTAL PROTEIN 6.7 g/dL (6.4-8.2); eGFR NON BLACK RACES > 60 (>60)
[2018-04-16] MEDS ORDERED: MICRO K EXTEN CAP 10 MEQ PO PRN (07:00)
[2018-04-16] MEDS ORDERED: KLOR-CON PO PRN (07:00)
[2018-04-16] MEDS ORDERED: POTASSIUM CHL 60 MEQ/NS 0.45% 500 ML IV PRN (07:00)
[2018-04-16] MEDS ORDERED: POTASSIUM CHLORIDE LIQ 20 MEQ UDC PO PRN (07:00)
[2018-04-16] MEDS ORDERED: POTASSIUM CHL 40 MEQ/NS 0.45% 500 ML IV PRN (07:00)
[2018-04-16] MEDS ORDERED: NS 1000 ML 1,000 ML ONE (07:12)
[2018-04-16] MEDS: NS 1000 ML 1,000 ML IV SCH ×3 (07:16→22:55)
[2018-04-16] MEDS: K-RIDER 10 MEQ/NS 100 ML 10 MEQ/100 ML BAG IV PRN ×4 (08:37→23:13)
[2018-04-16] MEDS ORDERED: NS 1000 ML 2,000 ML IV ONE (09:33)
[2018-04-16] MEDS: METHADONE HCL PO PRN (11:30)
[2018-04-16] MEDS: PHENERGAN INJ 25 MG IV PRN ×2 (11:33→17:19)
[2018-04-16] MEDS ORDERED: ZOFRAN TAB 4 MG PO PRN (14:01)
[2018-04-16] MEDS: HumaLOG SC SCH ×2 (16:13)
[2018-04-16] MEDS: LOPRESSOR TAB 25 MG PO SCH ×2 (17:18→20:06)
[2018-04-16] MEDS: MEGACE PO SCH ×2 (17:18→20:07)
[2018-04-16] MEDS: PEPCID TAB 20 MG PO SCH ×2 (17:20→20:07)
[2018-04-16] MEDS: MAGNESIUM SULFATE 1 GRAM/100 mL PREMIX 1 GM/100 ML BAG IV PRN ×2 (18:21→20:09)
[2018-04-16] MEDS: KLONOPIN TAB 1 MG PO SCH (20:05)
[2018-04-16] MEDS: SNACK - Diabetic Appropriate PO SCH (20:10)
--- NOTE | 2018-04-16 20:24 | DR.H&P ---
H&P - History & Physical for Day of: H&P Date: 04/14/18 - Chief Complaint Chief Complaint: SHORTNESS OF BREATH, WEAKNESS, NAUSEA, VOMITING, AND HIGH GLUCOSE LEVELS. - History of Present Illness History of Present Illness: IS A 37 YEAR OLD PATIENT OF OURS. HE PRESENTED TO THE ER WITH COMPLAINTS OF SHORTNESS OF BREATH, WEAKNESS, NAUSEA, VOMITING, AND HIGH GLUCOSE LEVELS. ON ARRIVAL, BLOOD GLUCOSE WAS NOTED TO BE 519. VITALS WERE 98.6-544-93-100%-141/98. LABS WERE OBTAINED. ABNORMAL LAB VALUES INCLUDE THE FOLLOWING: WBC 21.9, CARBON DIOXIDE 5.0, BUN 21, CREATININE 1.60, GLUCOSE 469, TOTAL PROTEIN 9.1, GLOBULIN 4.6, AMYLASE 20, LIPASE 40, PHOSPHORUS 6.8, ACETONES LARGE. ABG REVEALED: PH 7.140, PC02 14.0, P02 279.0, HC03 4.8, 02 SATURATION 100%. AN ABDOMEN XRAY WAS OBTAINED AND REVEALED: No acute process. Mild constipation. HE WAS ADMITTED TO THE INTENSIVE UNIT FOR FURTHER EVALUATION AND TREATMENT. HE WAS STARTED ON AN INSULIN DRIP AND NORMAL SALINE WITH 1 AMP BICARB AT 150ML/HR. WE PLAN TO FOLLOW UP WITH AM LABS AND CONTINUE TO MONITOR. - Past Medical History Past Medical History: Diabetes Additional Medical History: DKA, Gastroparesis, Chronic Low Back Pain With Radiculopathy, Pancreatitis, UTI's - Past Surgical History Surgical History: Other Additional Surgical History: [place] Teeth Surgically Removed - Family History Family Medical History: Diabetes Mellitus, Sudden Cardiac , Hypertension - Social History Does patient currently use any type of tobacco product: Yes Have you used tobacco products in the last 12 months: Yes Type of Tobacco Use: Cigarettes Does any household member use tobacco: Yes Alcohol Use: None Drug Use: Prescription Drugs - Medications Home Medications: No Known Drug Allergies Allergy (Verified 02/27/18 16:56) CONTINUE taking the following medications dextroamphetamine-amphetamine 20 mg PO BID 04/16/18 [History] megestrol 40 mg PO BID 04/16/18 [History] ondansetron 8 mg PO Q4-6H PRN 04/16/18 [History] - Review of Systems Constitutional: Weakness Eyes: No Symptoms Reported ENT: No Symptoms Reported Respiratory: Shortness of Breath Cardiovascular: No Symptoms Reported Gastrointestinal: See HPI, Nausea, Vomiting, Abdominal Pain. denies: Diarrhea, Constipation, Melena, Hematochezia Genitourinary: No Symptoms Reported Musculoskeletal: No Symptoms Reported Skin: No Symptoms Reported Neurological: Weakness - Physical Exam Vital Signs: Temperature 97.8 F Pulse Rate [Brachial] 125 Pulse Rate 100 Respiratory Rate 20 Blood Pressure [Left Arm] 142/89 Blood Pressure [Right Arm] 104/59 Blood Pressure 167/110 O2 Sat by Pulse Oximetry 100 Oriented: Normal Eyes: Normal Ear: Normal Nose: Normal Throat: Normal Respiratory: Diminished Throughout Cardiovascular: Tachycardia. negative: S3, S4 : Normal Auscultation: Bowel Sounds: Normal Palpation: Normal Tenderness: Diffuse, Mild Skin: Normal Musculoskeletal: Normal Psychiatric: Normal Mood Description: Calm Affect: Normal Speech Pattern: Clear - Assessment/Plan (1) DKA (diabetic ketoacidoses) Qualifiers: Diabetes mellitus type: type 2 Diabetes mellitus complication detail: without coma Qualified Code(s): E11.10 - Type 2 diabetes mellitus with ketoacidosis without coma Status: Acute Plan: INSULIN DRIP, MONITOR OTBS, MONITOR ABG, NORMAL SALINE WITH 1 AMP BICARB AT 150ML/HR, CONTINUE TO MONITOR (2) Abdominal pain Qualifiers: Abdominal location: generalized Qualified Code(s): R10.84 - Generalized abdominal pain Status: Acute - Allergies Allergies/Adverse Reactions: Allergies Allergy/AdvReac Type Severity Reaction Status Date / Time No Known Drug Allergies Allergy Verified 02/27/18 16:56
[2018-04-16] MEDS: HumuLIN R SUBCUT PRN (23:17)
[2018-04-17] MEDS: K-RIDER 10 MEQ/NS 100 ML 10 MEQ/100 ML BAG IV PRN ×4 (00:13→03:41)
[2018-04-17] MEDS: XANAX PO PRN ×2 (00:34→20:39)
[2018-04-17] MEDS: NS 1000 ML 1,000 ML IV SCH ×5 (03:41→23:10)
[2018-04-17] MEDS: HumuLIN R SUBCUT PRN ×4 (03:48→15:27)
[2018-04-17 06:35] LABS: ALANINE AMINOTRANSFERASE 11 Units/L (12-78); ALBUMIN 3.3 g/dL (3.4-5.0); ALKALINE PHOSPHATASE 66 Units/L (46-116); ASPARTATE AMINO TRANSFERASE 14 Units/L (15-37); BLOOD UREA NITROGEN 7 mg/dL (7-18); CALCIUM 8.6 mg/dL (8.5-10.1); CARBON DIOXIDE 23.8 mmol/L (21-32); CHLORIDE 105 mmol/L (98-107); COR CA(FOR HYPOALB) 9.2 mg/dL (8.5-10.1); COR NA(FOR HYPERGLY) 143 mmol/L (136-145); CREATININE 0.46 mg/dL (0.70-1.30); MAGNESIUM 1.9 mg/dL (1.7-2.9); SODIUM 141 mmol/L (136-145); TOTAL PROTEIN 6.5 g/dL (6.4-8.2); eGFR NON BLACK RACES > 60 (>60)
[2018-04-17] MEDS: HumaLOG SC SCH ×3 (06:36→17:44)
[2018-04-17 06:48] LABS: BASOPHILS # (AUTO) 0.1 X10^3/uL (0.0-0.1); BASOPHILS % (AUTO) 0.4 % (0.2-1.0); EOSINOPHILS % (AUTO) 0.1 % (0.9-2.9); HEMATOCRIT 35.3 % (42.0-54.0); LYMPHOCYTES # (AUTO) 4.5 X10^3/uL (1.3-2.9); LYMPHOCYTES % (AUTO) 33.9 % (21.0-51.0); MEAN CORPUSCULAR HEMOGLOBIN 28.4 pg (27.0-34.0); MEAN CORPUSCULAR HGB CONC 33.9 g/dL (33.0-35.0); MEAN CORPUSCULAR VOLUME 83.8 fL (80.0-100.0); MEAN PLATELET VOLUME 8.5 fL (7.4-11.0); MONOCYTES # (AUTO) 1.1 x10^3/uL (0.3-0.8); MONOCYTES % (AUTO) 8.2 % (0.0-13.0); NEUTROPHILS # (AUTO) 7.6 x10^3/uL (2.2-4.8); NEUTROPHILS % (AUTO) 57.4 % (42.0-75.0); PLATELET COUNT 242 X10^3/uL (150.0-450.0); RED BLOOD COUNT 4.21 X10^6/uL (4.7-6.0); RED CELL DISTRIBUTION WIDTH 13.5 % (11.6-16.5); WHITE BLOOD COUNT 13.2 X10^3/uL (3.6-10.0)
[2018-04-17] MEDS: LOPRESSOR TAB 25 MG PO SCH ×2 (08:39→20:39)
[2018-04-17] MEDS: MEGACE PO SCH ×2 (08:40→20:40)
[2018-04-17] MEDS: PEPCID TAB 20 MG PO SCH ×2 (08:40→20:40)
[2018-04-17] MEDS: K-DUR TAB 20 MEQ PO PRN ×2 (08:42→20:38)
[2018-04-17] MEDS: PHENERGAN INJ 25 MG IV PRN ×2 (10:10→17:21)
[2018-04-17] MEDS: METHADONE HCL PO PRN ×3 (10:11→23:09)
[2018-04-17] MEDS ORDERED: MILK OF MAGNESIA PO PRN (19:55)
[2018-04-17] MEDS: MAGNESIUM SULFATE 1 GRAM/100 mL PREMIX 1 GM/100 ML BAG IV PRN ×2 (20:37→21:56)
[2018-04-17] MEDS: KLONOPIN TAB 1 MG PO SCH (20:39)
[2018-04-17] MEDS: SNACK - Diabetic Appropriate PO SCH (20:40)
[2018-04-18 05:52] LABS: BASOPHILS # (AUTO) 0.1 X10^3/uL (0.0-0.1); BASOPHILS % (AUTO) 0.7 % (0.2-1.0); EOSINOPHILS # (AUTO) 0.1 x10^3/uL (0.0-0.2); EOSINOPHILS % (AUTO) 1.7 % (0.9-2.9); HEMATOCRIT 31.9 % (42.0-54.0); HEMOGLOBIN 10.8 g/dL (13.5-18.0); LYMPHOCYTES # (AUTO) 4.4 X10^3/uL (1.3-2.9); LYMPHOCYTES % (AUTO) 50.8 % (21.0-51.0); MEAN CORPUSCULAR HEMOGLOBIN 29.1 pg (27.0-34.0); MEAN CORPUSCULAR HGB CONC 33.7 g/dL (33.0-35.0); MEAN CORPUSCULAR VOLUME 86.1 fL (80.0-100.0); MEAN PLATELET VOLUME 8.8 fL (7.4-11.0); MONOCYTES # (AUTO) 0.6 x10^3/uL (0.3-0.8); MONOCYTES % (AUTO) 6.3 % (0.0-13.0); NEUTROPHILS # (AUTO) 3.5 x10^3/uL (2.2-4.8); NEUTROPHILS % (AUTO) 40.5 % (42.0-75.0); PLATELET COUNT 178 X10^3/uL (150.0-450.0); WHITE BLOOD COUNT 8.7 X10^3/uL (3.6-10.0)
[2018-04-18 06:02] LABS: ALANINE AMINOTRANSFERASE 11 Units/L (12-78); ALBUMIN 2.8 g/dL (3.4-5.0); ALKALINE PHOSPHATASE 59 Units/L (46-116); ASPARTATE AMINO TRANSFERASE 12 Units/L (15-37); BLOOD UREA NITROGEN 14 mg/dL (7-18); CARBON DIOXIDE 15.9 mmol/L (21-32); CHLORIDE 103 mmol/L (98-107); COR NA(FOR HYPERGLY) 144 mmol/L (136-145); CREATININE 0.65 mg/dL (0.70-1.30); MAGNESIUM 1.9 mg/dL (1.7-2.9); PHOSPHORUS 2.2 mg/dL (2.6-4.7); SODIUM 136 mmol/L (136-145); TOTAL PROTEIN 5.4 g/dL (6.4-8.2); eGFR NON BLACK RACES > 60 (>60)
[2018-04-18] MEDS: HumaLOG SC SCH (06:37)
[2018-04-18] MEDS: HumuLIN R SUBCUT PRN (06:38)
[2018-04-18] MEDS: METHADONE HCL PO PRN (08:10)
[2018-04-18] MEDS: MEGACE PO SCH (08:10)
[2018-04-18] MEDS: PEPCID TAB 20 MG PO SCH (08:11)
[2018-04-18 11:06] VITALS: BP 131/85
== END 2018-04-18 11:45 | disposition home or self-care (01) | DRG 639 ==
LOC: ER 19:52 → ICU 04-15 01:01
PROVIDERS: ADMIT Obstetrics & Gynecology Obstetrics; ATTEND Internal Medicine
DX: K59.09 Other constipation; R26.89 Other abnormalities of gait and mobility; E11.65 Type 2 diabetes mellitus with hyperglycemia; R10.84 Generalized abdominal pain; Z79.4 Long term (current) use of insulin; R11.2 Nausea with vomiting, unspecified; R06.02 Shortness of breath; E11.10 Type 2 diabetes mellitus with ketoacidosis without coma; R42 Dizziness and giddiness; R94.4 Abnormal results of kidney function studies; R53.1 Weakness
CPT/HCPCS: 36415; 36600; 74022; 80053; 81001; 82009; 82150; 82803; 83036; 83690; 83735; 84100; 84132; 85025; 96365; 96367; 96372; 96374; 96375; 97166; 99282; 99285; A4222; S0109; S0179; J1815; J1817; J2405; J2550; J3475; J3480; J3490; J7030; J7050

== ENCOUNTER 2018-11-03 01:05 | Inpatient (IN) ==
[2018-11-03] MEDS: NS 1000 ML 1,000 ML IV SCH ×2 (02:14→04:30)
[2018-11-03] MEDS ORDERED: NS 1000 ML 1,000 ML ONE (02:14)
[2018-11-03] MEDS ORDERED: HumuLIN R IV PRN (02:16)
--- NOTE | 2018-11-03 02:18 | DR.HYPOGLY ---
HPI - Time Seen Time seen: 02:14 - PCP Primary Care Physician: KRYS - Complaint Chief Complaint Doctors Comments: Patient brought in by EMS with elevated glucose and lethargy. Patient states he thinks he is in DKA again. He is unsure of the amount of insulin he takes or when he had his last dose. Patient is a patient of Dr. Dallas and states he is hurting all over. He has had nausea and vomiting but denies fever, dysuria or diarrhea. He smokes but do not know how much. States he was last admitted about a mouth ago for the same thing. Mother states he was in the hospital in [place] on 10/11/18 in ICU on the ventillator for several days and they called her to come and get him. States she has been trying to help him eat right and take his medicines. Chief Complaint:: EMS STATES THEY WERE CALLED BY FAMILY FOR HIGH BLOOD SUGAR AND WEAKNESS OTBS PER EMS NOTED 556, UPON ARRIVAL PATIENT NOTED TO BE PALE AND FLAT AFFECT, PT CONFUSED, UNAWARE WHAT DAY AND HOW LONG HE HAS BEEN SICK OR WHEN THE LAST TIME HE HAS TAKEN MEDS OR EATEN. Self Treatment fo Chief Complaint: N/A - Nurses notes reviewed Nurses Notes Review: Yes - Source History Provided: Patient, EMS - Mode of Arrival Mode of Arrival: EMS - Timing Onset of Chief Complaint: 11/03/18 Came on: Gradually - Duration Duration: Constant Duration: Days - Context [place]: Confused, Found disoriented Symptoms: Confusion, Generalized weakness History of: Diabetes Prehospital care: None - Modifying factors Improves: Nothing - Associated signs and symptoms Associated signs and symptoms: Nausea, Vomiting PMH - PMH Past Medical History: Yes Past Medical History: Diabetes Past Surgical History: Yes Surgical History: Other Past Surgical History Comment: PORT A CATH - Family History History of Family Medical Conditions: Yes Family Medical History: Diabetes Mellitus, Sudden Cardiac , Hypertension - Social History Does patient currently use any type of tobacco product: Yes Have you used tobacco products in the last 12 months: Yes Type of Tobacco Use: Cigarettes Does any household member use tobacco: No Alcohol Use: None Do you use any recreational Drugs:: No Lives With: Family Lives Where: Home - infectious screening In the last 2 months have you had wt loss of >10#?: NO Have you had fever, night sweats or hemotysis?: No Have you traveled outside the country in the last 6 months?: No Isolation: Standard ROS - Review of Systems Constitutional: No Symptoms Reported, Weakness, Loss of Appetite Eyes: No Symptoms Reported. negative: See HPI, Eye Pain, Blurred Vision, Tearing, Discharge, Photophobia, Diplopia, Other ENTM: No Symptoms Reported Respiratoy: No Symptoms Reported. negative: See HPI, Productive Cough, Non- Productive Cough, Moist Cough, Dry Cough, Hacking Cough, Barking Cough, Brassy Cough, Orthopnea, Short of Breath, Stridor, Wheezing, Hemoptysis, Other Cardiovascular: No Symptoms Reported Gastrointestinal/Abdominal: No Symptoms Reported, Nausea, Vomiting Genitourinary: No Symptoms Reported Neurological: No Symptoms Reported Musculoskeletal: No Symptoms Reported Integumentary: No Symptoms Reported Hematologic/Lymphatic: No Symptoms Reported. negative: See HPI, Anemia, Blood Clots, Easy Bleeding, Easy Bruising, Swollen Glands, Lymphadenopathy, Other Endocrine: No Symptoms Reported Psychiatric: No Symptoms Reported. negative: See HPI, Anxiety, Depression, Hallucinations, Excessive crying, Suicidal, Other PE - General Limitations: No Limitations General Appearance: Alert, Obtunded, In Distress (severe), Cachectic - Eyes Eye exam: Normal Appearance, PERRL, EOMI. negative: Scleral Icterus, Conj unctival Injection, Nystagmus, Miosis, Mydrasis, Periorbital Swelling, Periorbital Tenderness, Other Pupils: Regular, Round: Bilateral, Reactive: Bilateral Sclera/Conjunctival: Normal Inspection: Bilateral - ENT ENT Exam: Normal Exam, Normal Oropharynx, Normal External Ear Exam, Mucous Membranes Dry, TM's Normal Bilaterally Nose Exam: Normal Nose Exam Mouth Exam: Normal Inspection Throat Exam: Normal Inspection - Neck Neck Exam: Normal Inspection, Full ROM, Trachea Midline. negative: Tenderness, Meningismus, Lymphadenopathy, Thyromegaly, Other - Chest Chest Inspection: Normal Inspection, Symmetric Chest Wall Rise - Respiratory Respiratory Exam: Normal Lung Sounds Bilat Respiratory Exam: Bilateral Clear to Auscultation - Cardiovascular Cardiovascular Exam: Regular Rate, Normal Rhythm, Normal Heart Sounds - Abdominal Exam Abdominal Exam: Normal Inspection, Normal Bowel Sounds, Soft, Tenderness, Dimnished Bowel Sounds Abdominal Tenderness: LUQ, Diffuse, Moderate - Extremities Extremities Exam: Normal Inspection, Full ROM, Normal Capillary Refill. negative: Tenderness, Edema, Joint Swelling, Calf Tenderness, Other - Back Back Exam: Normal Inspection, Full ROM. negative: Tenderness, (R) CVA Tend erness, (L) CVA Tenderness, Muscle Spasm, Paraspinal Tenderness, Vertebral Tenderness, Rashes, (R) Sciatic Notch Tenderness, (L) Sciatic Notch Tendern, (R) Straight Leg Raise, (L) Straight Leg Raise, Other - Neurologic Neurological Exam: Oriented X3, CN II-XII Intact, Reflexes Normal. negative: Alert (lethargic), Normal Gait (gait not tested) Patient Oriented To: Person, Place Speech: Fluid Speech Cranial Nerve Exam: EOM Function (II, III, IV, ): Normal, Facial Sensation (V): Normal, Facial Palsy (VII): Normal, Gag reflex (XI): Normal, Spinal Accessory Function (XI): Normal, Tongue Deviation: Normal Motor Strength - LUE: 4/5 Motor Strength - RUE: 4/5 Upper Motor Neuron Exam: Babinski Sign: Normal Sensory Exam Upper Extremity: Light Touch: Normal Sensory Exam Lower Extremity: Light Touch: Normal DTR: Patellar (L): 1+, patellar (R): 1+ - Psychiatric Psychiatric Exam: Normal Affect, Normal Mood. negative: Depressed, Agitated, Anxious, Flat Affect, Manic, Homicidal Ideation, Suicidal Ideation, Other - Skin Skin Exam: Warm, Dry, Intact, Normal Color, Pallor - Vital Signs Vitals: Temperature 100 F Pulse Rate [Left] 127 Pulse Rate 123 Respiratory Rate 28 Blood Pressure [Left Arm] 121/79 Blood Pressure [Right Arm] 132/81 Blood Pressure 141/96 O2 Sat by Pulse Oximetry 96 Course - Reevaluation 1st: Improved (Patient more alert; responding to verbal stimuli) - Consultation Called: 05:42 Call Returned: 05:42 (Add amp Bicarbonate to fluids at 200ml/hr) - Education/Counseling Education/Counseling: Patient, Family Educated On: Treatment, Diagnosis, Needs for Follow Up ROR - Labs Reviewed Laboratory Results Reviewed?: Yes (All labs and x-ray results reviewed and d iscussed with patient and mother) Result Diagrams: 11/03/18 04:40 11/03/18 04:40 - XRAY XRAY Interpreted by: Radiologist (CXR: NO acute cardiopulmonary changes noted) - EKG Rhythm: ST Block: RBBB Hypertrophy: LAE - Labs Reviewed Laboratory: WBC 22.7 X10^3/uL (3.6-10.0) H 07/06/19 04:40 RBC 3.16 X10^6/uL (4.7-6.0) L 11/03/18 04:40 Hgb 8.7 g/dL (13.5-18.0) L 11/03/18 04:40 Hct 28.8 % (42.0-54.0) L 11/03/18 04:40 MCV 91.1 fL (80.0-100.0) 11/03/18 04:40 MCH 27.5 pg (27.0-34.0) 11/03/18 04:40 MCHC 30.2 g/dL (33.0-35.0) L 11/03/18 04:40 RDW 17.4 % (11.6-16.5) H 11/03/18 04:40 Plt Count 608 X10^3/uL (150.0-450.0) H 11/03/18 04:40 Plt Count Comment Increased (ADEQUATE) 11/03/18 01:40 MPV 6.0 fL (7.4-11.0) L 11/03/18 04:40 Neut % (Auto) 85.1 % (42.0-75.0) H 11/03/18 04:40 Lymph % (Auto) 6.0 % (21.0-51.0) L 11/03/18 04:40 [place] % (Auto) 8.7 % (0.0-13.0) 11/03/18 04:40 Eos % (Auto) 0.0 % (0.9-2.9) L 11/03/18 04:40 Baso % (Auto) 0.2 % (0.2-1.0) 11/03/18 04:40 Neut # (Auto) 19.3 x10^3/uL (2.2-4.8) H 11/03/18 04:40 Lymph # (Auto) 1.4 X10^3/uL (1.3-2.9) 11/03/18 04:40 [place] # (Auto) 2.0 x10^3/uL (0.3-0.8) H 11/03/18 04:40 Eos # (Auto) 0.0 x10^3/uL (0.0-0.2) 11/03/18 04:40 Baso # (Auto) 0.0 X10^3/uL (0.0-0.1) 11/03/18 04:40 Absolute Nucleated RBC 0.0 /100WBC 11/03/18 04:40 Plt Morphology Comment Normal (NORMAL) 11/03/18 01:40 RBC Morphology Normal (NORMAL) 11/03/18 01:40 INR Target Range - 11/03/18 01:40 INR 1.35 (0.8-1.3) H 11/03/18 01:40 APTT 28.3 SECONDS (22.9-36.5) 11/03/18 01:40 PTT Comment - 11/03/18 01:40 Sample Site Lbra 11/03/18 04:56 ABG pH 7.230 (7.35-7.45) L 11/03/18 04:56 ABG pCO2 15.0 mmHg (35.0-45.0) L* 11/03/18 04:56 ABG pO2 90.0 mmHg (80.0-100.0) 11/03/18 04:56 ABG HCO3 6.3 mmol/L (22-26) L* 11/03/18 04:56 ABG O2 Saturation 95.0 % (90-100) 11/03/18 04:56 ABG Base Excess -18.9 mmol/L (-2.0-2.0) L 11/03/18 04:56 Geoff Test Na 11/03/18 04:56 A-a Gradient 41.0 mmHg 11/03/18 04:56 FiO2 21.0 11/03/18 04:56 Blood Gas Comments Marva abg well-mtf 11/03/18 04:56 Sodium 139 mmol/L (136-145) 11/03/18 04:40 Corrected Sodium 151 mmol/L (136-145) H 11/03/18 04:40 Potassium 4.1 mmol/L (3.5-5.1) 11/03/18 04:40 Chloride 100 mmol/L (98-107) 11/03/18 04:40 Carbon Dioxide 8.3 mmol/L (21-32) L* 11/03/18 04:40 BUN 26 mg/dL (7-18) H 11/03/18 04:40 Creatinine 1.58 mg/dL (0.70-1.30) H 11/03/18 04:40 Est GFR (MDRD) Af Amer > 60 (>60) 11/03/18 04:40 Est GFR (MDRD) Non-Af 53 (>60) L 11/03/18 04:40 Glucose 580 mg/dL (65-99) H* 11/03/18 04:40 Calcium 8.2 mg/dL (8.5-10.1) L 11/03/18 04:40 Corrected Calcium 11.0 mg/dL (8.5-10.1) H 11/03/18 01:40 Magnesium 1.6 mg/dL (1.7-2.9) L 11/03/18 01:40 Total Bilirubin 0.70 mg/dL (0.2-1.0) 11/03/18 01:40 AST 18 Units/L (15-37) 11/03/18 01:40 ALT 25 Units/L (12-78) 11/03/18 01:40 Alkaline Phosphatase 162 Units/L (46-116) H 11/03/18 01:40 Creatine Kinase 20 Units/L (39-308) L 11/03/18 01:40 CK-MB (CK-2) < 1.0 ng/mL (0-4.0) 11/03/18 01:40 CK/CKMB % Calc 5.0 % (<4) 11/03/18 01:40 Troponin I < 0.02 ng/mL (0-1.5) 11/03/18 01:40 Total Protein 9.9 g/dL (6.4-8.2) H 11/03/18 01:40 Albumin 2.4 g/dL (3.4-5.0) L 11/03/18 01:40 Globulin 7.5 g/dL (2.5-4.5) H 11/03/18 01:40 Albumin/Globulin Ratio 0.3 Ratio (1.1-2.1) L 11/03/18 01:40 Specimen Type Random urine 11/03/18 04:43 Urine Color Yellow (YELLOW) 11/03/18 04:43 Urine Appearance Clear (CLEAR) 11/03/18 04:43 Urine pH 5.0 (5.0 - 8.0) 11/03/18 04:43 Ur Specific [place] 1.020 (1.000-1.030) 11/03/18 04:43 Urine Protein 1+ (NEGATIVE) 11/03/18 04:43 Urine Glucose (UA) 4+ (NEGATIVE) 11/03/18 04:43 Urine Ketones 4+ (NEGATIVE) 11/03/18 04:43 Urine Occult Blood Negative (NEGATIVE) 11/03/18 04:43 Urine Nitrite Negative (NEGATIVE) 11/03/18 04:43 Urine Bilirubin Negative (NEGATIVE) 11/03/18 04:43 Urine Urobilinogen Normal (NORMAL) 11/03/18 04:43 Ur Leukocyte Esterase Negative (NEGATIVE) 11/03/18 04:43 Urine RBC None seen /HPF (NONE SEEN) 11/03/18 04:43 Urine WBC None seen /HPF (NONE SEEN) 11/03/18 04:43 Ur Squamous Epith Cells Rare /HPF (NEGATIVE) 11/03/18 04:43 Urine Bacteria Negative /HPF (NEGATIVE) 11/03/18 04:43 Ur Culture Indicated? No/not indicated 11/03/18 04:43 Acetone, Semi-Quant Moderate (NEGATIVE) H 11/03/18 01:40 Opioid - Opioid Risk Tool Family Hx of Substance Abuse: Illegal Drugs Personal Hx of Substance Abuse: Illegal Drugs Age (Ajit box if 16-45): Yes History of Preadolescent Sexual Abuse: No Total: 2 Total Score Risk Category: Low Risk - Diagnosis Discharge Problem: Acute dehydration, Metabolic acidosis, Essential hypertension, benign Diabetic ketoacidosis Qualifiers: Diabetes mellitus type: type 1 Leukocytosis Qualifiers: Leukocytosis type: unspecified Qualified Code(s): D72.829 - Elevated white blood cell count, unspecified - Discharge Plan Disposition: 09 ADMITTED INPATIENT Condition: Stable - Follow ups/Referrals Follow ups/Referrals: Charlie Dallas [Primary Care Provider] - 3 days - Instructions
[2018-11-03 02:29] LABS: BASOPHILS # (AUTO) 0.1 X10^3/uL (0.0-0.1); BASOPHILS % (AUTO) 0.6 % (0.2-1.0); HEMATOCRIT 31.6 % (42.0-54.0); HEMOGLOBIN 9.5 g/dL (13.5-18.0); LYMPHOCYTES # (AUTO) 1.7 X10^3/uL (1.3-2.9); LYMPHOCYTES % (AUTO) 8.3 % (21.0-51.0); MEAN CORPUSCULAR HEMOGLOBIN 28.2 pg (27.0-34.0); MEAN CORPUSCULAR VOLUME 93.9 fL (80.0-100.0); MEAN PLATELET VOLUME 7.1 fL (7.4-11.0); MONOCYTES # (AUTO) 0.2 x10^3/uL (0.3-0.8); MONOCYTES % (AUTO) 1.1 % (0.0-13.0); PLATELET COUNT 704 X10^3/uL (150.0-450.0); RED BLOOD COUNT 3.36 X10^6/uL (4.7-6.0); RED CELL DISTRIBUTION WIDTH 17.6 % (11.6-16.5)
[2018-11-03 02:35] LABS: PLATELET MORPHOLOGY COMMENT NORMAL (NORMAL)
[2018-11-03 02:42] LABS: ALANINE AMINOTRANSFERASE 25 Units/L (12-78); ALBUMIN 2.4 g/dL (3.4-5.0); ALKALINE PHOSPHATASE 162 Units/L (46-116); ASPARTATE AMINO TRANSFERASE 18 Units/L (15-37); BLOOD UREA NITROGEN 24 mg/dL (7-18); CALCIUM 9.7 mg/dL (8.5-10.1); CHLORIDE 91 mmol/L (98-107); CREATINE KINASE 20 Units/L (39-308); CREATINE KINASE MB < 1.0 ng/mL (0-4.0); CREATININE 1.62 mg/dL (0.70-1.30); MAGNESIUM 1.6 mg/dL (1.7-2.9); SODIUM 132 mmol/L (136-145); TOTAL PROTEIN 9.9 g/dL (6.4-8.2); TROPONIN I < 0.02 ng/mL (0-1.5); eGFR NON BLACK RACES 51 (>60)
[2018-11-03 02:42] LABS: ABG BASE EXCESS -21.1 mmol/L (-2.0-2.0)
[2018-11-03 02:43] LABS: CARBON DIOXIDE 7.6 mmol/L (21-32)
--- NOTE | 2018-11-03 02:43 | RAD ---
Chest, 1 view Indication: Chest pain Comparison: 10/11/2018 Findings: Cardiac silhouette is unremarkable. There is stable right-sided Port-A-Cath with the tip overlying the superior cavoatrial junction. The lungs are grossly clear without dense infiltrate or pleural effusion. No pneumothorax. Impression: No acute chest process. Reported By:
[2018-11-03 02:44] LABS: ABG HCO3 4.9 mmol/L (22-26)
[2018-11-03 02:44] LABS: COR NA(FOR HYPERGLY) 145 mmol/L (136-145)
[2018-11-03] MEDS ORDERED: SODIUM BICARBONATE 8.4% INJ ADULT IVP ONE ×3 (02:45→07:13)
[2018-11-03] MEDS ORDERED: SODIUM BICARBONATE 8.4% INJ ADULT ONE ×3 (02:47→07:14)
[2018-11-03] MEDS ORDERED: HumuLIN R ONE ×2 (02:49→05:30)
[2018-11-03] MEDS ORDERED: HumuLIN R IV ONE (03:01)
[2018-11-03] MEDS ORDERED: NS 1000 ML 1,000 ML IV ONE ×2 (03:25→05:32)
[2018-11-03 04:53] LABS: BILIRUBIN,URINE NEGATIVE (NEGATIVE); BLOOD/HEMOGLOBIN,URINE NEGATIVE (NEGATIVE); GLUCOSE, URINE 4+ (NEGATIVE); KETONES,URINE 4+ (NEGATIVE); LEUKOCYTE ESTERASE ,URINE NEGATIVE (NEGATIVE); NITRITES,URINE NEGATIVE (NEGATIVE); PROTEIN,URINE 1+ (NEGATIVE); UROBILINOGEN,URINE NORMAL (NORMAL)
[2018-11-03 04:57] LABS: APPEARANCE,URINE CLEAR (CLEAR); COLOR,URINE YELLOW (YELLOW)
[2018-11-03 04:57] LABS: BASOPHILS % (AUTO) 0.2 % (0.2-1.0); HEMATOCRIT 28.8 % (42.0-54.0); HEMOGLOBIN 8.7 g/dL (13.5-18.0); LYMPHOCYTES # (AUTO) 1.4 X10^3/uL (1.3-2.9); MEAN CORPUSCULAR HEMOGLOBIN 27.5 pg (27.0-34.0); MEAN CORPUSCULAR HGB CONC 30.2 g/dL (33.0-35.0); MEAN CORPUSCULAR VOLUME 91.1 fL (80.0-100.0); MONOCYTES % (AUTO) 8.7 % (0.0-13.0); NEUTROPHILS # (AUTO) 19.3 x10^3/uL (2.2-4.8); NEUTROPHILS % (AUTO) 85.1 % (42.0-75.0); PLATELET COUNT 608 X10^3/uL (150.0-450.0); RED BLOOD COUNT 3.16 X10^6/uL (4.7-6.0); RED CELL DISTRIBUTION WIDTH 17.4 % (11.6-16.5); WHITE BLOOD COUNT 22.7 X10^3/uL (3.6-10.0)
[2018-11-03 04:58] LABS: BACTERIA,URINE NEGATIVE /HPF (NEGATIVE); RBC,URINE NONE SEEN /HPF (NONE SEEN); SQUAMOUS EPITHELIAL CELL,UR RARE /HPF (NEGATIVE)
[2018-11-03 05:03] LABS: ABG BASE EXCESS -18.9 mmol/L (-2.0-2.0)
[2018-11-03 05:04] LABS: ABG HCO3 6.3 mmol/L (22-26)
[2018-11-03 05:06] LABS: BLOOD UREA NITROGEN 26 mg/dL (7-18); CALCIUM 8.2 mg/dL (8.5-10.1); CHLORIDE 100 mmol/L (98-107); CREATININE 1.58 mg/dL (0.70-1.30); SODIUM 139 mmol/L (136-145); eGFR NON BLACK RACES 53 (>60)
[2018-11-03 05:08] LABS: CARBON DIOXIDE 8.3 mmol/L (21-32); COR NA(FOR HYPERGLY) 151 mmol/L (136-145)
[2018-11-03] MEDS ORDERED: HumuLIN R IV STA (05:27)
[2018-11-03] MEDS ORDERED: NS 1/2 1000 ML IV 1,000 ML with SODIUM BICARBONATE 8.4% INJ ADULT 50 ML IV SCH ×2 (05:30)
[2018-11-03] MEDS ORDERED: NS 100 ML IV 100 ML ONE (05:31)
[2018-11-03] MEDS ORDERED: ROCEPHIN VIAL 1 GRAM IVP ONE (05:33)
[2018-11-03] MEDS ORDERED: NS 1/2 1000 ML IV 1,000 ML ONE ×2 (05:37→20:04)
[2018-11-03] MEDS ORDERED: ROCEPHIN VIAL 1 GRAM ONE (05:51)
[2018-11-03 07:05] LABS: BLOOD UREA NITROGEN 24 mg/dL (7-18); CALCIUM 8.6 mg/dL (8.5-10.1); CHLORIDE 103 mmol/L (98-107); COR NA(FOR HYPERGLY) 151 mmol/L (136-145); CREATININE 1.51 mg/dL (0.70-1.30); SODIUM 141 mmol/L (136-145); eGFR NON BLACK RACES 56 (>60)
[2018-11-03 07:10] LABS: CARBON DIOXIDE 7.3 mmol/L (21-32)
[2018-11-03 08:39] VITALS: BMI 16.1
[2018-11-03] MEDS ORDERED: PHARMACY CONSULT - VANCOMYCIN XX SCH (09:00)
[2018-11-03] MEDS ORDERED: NS 1000 ML 1,000 ML with SODIUM BICARBONATE 8.4% INJ ADULT 100 ML IV SCH ×4 (09:00→16:45)
--- NOTE | 2018-11-03 09:23 | RAD ---
Examination: KUB History: Abdominal pain Comparison reference 10/10/2018 Findings: There is a large amount of fecal material distending the colon. No significant small bowel distention, visceral enlargement or ascites. Vascular calcifications are present in the pelvis. Impression: Fecal distention of the colon consistent with constipation. A mechanical obstruction is not suspected. Reported By:
[2018-11-03] MEDS: FORTAZ or TAZICEF VIAL INJ IVP SCH ×3 (09:39→22:09)
[2018-11-03 10:26] LABS: BLOOD UREA NITROGEN 21 mg/dL (7-18); CALCIUM 8.4 mg/dL (8.5-10.1); CARBON DIOXIDE 15.2 mmol/L (21-32); CHLORIDE 109 mmol/L (98-107); COR NA(FOR HYPERGLY) 149 mmol/L (136-145); CREATININE 1.13 mg/dL (0.70-1.30); SODIUM 145 mmol/L (136-145); eGFR NON BLACK RACES > 60 (>60)
[2018-11-03] MEDS: VANCOMYCIN HCL 1 GM VIAL 1 G in NS 250 ML IV 250 ML IV SCH ×2 (10:57→20:42)
[2018-11-03] MEDS ORDERED: NS IV SCH ×3 (11:00)
[2018-11-03] MEDS ORDERED: SODIUM BICARBONATE IV SCH ×3 (11:00)
[2018-11-03] MEDS ORDERED: [UNRECOGNIZED DRUG - OTHER] IV SCH ×3 (11:00)
[2018-11-03 13:30] LABS: ABG BASE EXCESS -5.6 mmol/L (-2.0-2.0); ABG HCO3 16.7 mmol/L (22-26)
[2018-11-03 13:31] LABS: ABG ALLEN TEST POS
[2018-11-03 14:46] LABS: BLOOD UREA NITROGEN 19 mg/dL (7-18); CALCIUM 8.5 mg/dL (8.5-10.1); CARBON DIOXIDE 15.9 mmol/L (21-32); CHLORIDE 112 mmol/L (98-107); COR NA(FOR HYPERGLY) 151 mmol/L (136-145); CREATININE 1.11 mg/dL (0.70-1.30); SODIUM 148 mmol/L (136-145); eGFR NON BLACK RACES > 60 (>60)
[2018-11-03] MEDS ORDERED: ZOFRAN INJ 4 MG VIAL ONE (16:13)
[2018-11-03] MEDS: ZOFRAN INJ 4 MG VIAL IVP PRN (16:21)
[2018-11-03 18:48] LABS: BLOOD UREA NITROGEN 15 mg/dL (7-18); CALCIUM 8.5 mg/dL (8.5-10.1); CHLORIDE 113 mmol/L (98-107); COR NA(FOR HYPERGLY) 156 mmol/L (136-145); CREATININE 1.09 mg/dL (0.70-1.30); eGFR NON BLACK RACES > 60 (>60)
[2018-11-03 18:52] LABS: SODIUM 154 mmol/L (136-145)
[2018-11-03] MEDS ORDERED: NS IV ONE ×2 (19:05→19:54)
[2018-11-03] MEDS ORDERED: SODIUM BICARBONATE 8.4% IV ONE ×2 (19:05→19:54)
[2018-11-03] MEDS ORDERED: SODIUM BICARBONATE 8.4% INJ ADULT 50 ML in NS 250 ML IV 250 ML IV ONE (19:29)
[2018-11-03] MEDS ORDERED: SNACK - Diabetic Appropriate PO SCH ×3 (20:00)
[2018-11-03] MEDS: SNACK - Diabetic Appropriate PO SCH (20:35)
[2018-11-03] MEDS ORDERED: KLOR-CON PO PRN (21:28)
[2018-11-03] MEDS ORDERED: K-DUR TAB 20 MEQ PO PRN (21:28)
[2018-11-03] MEDS ORDERED: MICRO K EXTEN CAP 10 MEQ PO PRN (21:28)
[2018-11-03] MEDS ORDERED: POTASSIUM CHL 40 MEQ/NS 0.45% 500 ML IV PRN (21:28)
[2018-11-03] MEDS ORDERED: POTASSIUM CHL 60 MEQ/NS 0.45% 500 ML IV PRN (21:28)
[2018-11-03] MEDS ORDERED: POTASSIUM CHLORIDE LIQ 20 MEQ UDC PO PRN (21:28)
[2018-11-03 21:58] LABS: ABG ALLEN TEST POS; ABG BASE EXCESS -2.8 mmol/L (-2.0-2.0); ABG HCO3 19.9 mmol/L (22-26)
[2018-11-03] MEDS: K-RIDER 10 MEQ/NS 100 ML 10 MEQ/100 ML BAG IV PRN ×2 (22:20→23:21)
[2018-11-04] MEDS: K-RIDER 10 MEQ/NS 100 ML 10 MEQ/100 ML BAG IV PRN ×4 (00:26→03:41)
[2018-11-04 06:18] LABS: ABG HCO3 21.1 mmol/L (22-26)
[2018-11-04] MEDS: FORTAZ or TAZICEF VIAL INJ IVP SCH (06:32)
--- NOTE | 2018-11-04 06:58 | RAD ---
HISTORY: DKA Study: Single view chest Comparison: 11/03/2018 Findings: Stable right subclavian CVL. No infiltrate, effusion or pneumothorax identified. The cardiac and mediastinal contours are within normal limits. The soft tissues are unremarkable. IMPRESSION: 1. No acute cardiopulmonary abnormality. Reported By:
[2018-11-04 07:20] LABS: BASOPHILS % (AUTO) 0.1 % (0.2-1.0); HEMATOCRIT 23.4 % (42.0-54.0); HEMOGLOBIN 7.5 g/dL (13.5-18.0); LYMPHOCYTES % (AUTO) 11.6 % (21.0-51.0); MEAN CORPUSCULAR HEMOGLOBIN 27.3 pg (27.0-34.0); MEAN CORPUSCULAR VOLUME 85.2 fL (80.0-100.0); MEAN PLATELET VOLUME 6.2 fL (7.4-11.0); MONOCYTES # (AUTO) 1.1 x10^3/uL (0.3-0.8); MONOCYTES % (AUTO) 6.1 % (0.0-13.0); NEUTROPHILS # (AUTO) 14.5 x10^3/uL (2.2-4.8); NEUTROPHILS % (AUTO) 82.2 % (42.0-75.0); PLATELET COUNT 438 X10^3/uL (150.0-450.0); RED BLOOD COUNT 2.75 X10^6/uL (4.7-6.0); RED CELL DISTRIBUTION WIDTH 16.9 % (11.6-16.5); WHITE BLOOD COUNT 17.6 X10^3/uL (3.6-10.0)
[2018-11-04 07:22] LABS: SERUM ACETONE SMALL (NEGATIVE)
[2018-11-04 07:23] LABS: ANISOCYTOSIS SLIGHT; PLATELET MORPHOLOGY COMMENT NORMAL (NORMAL)
[2018-11-04 07:24] LABS: ALANINE AMINOTRANSFERASE 16 Units/L (12-78); ALBUMIN 2.1 g/dL (3.4-5.0); ALKALINE PHOSPHATASE 112 Units/L (46-116); ASPARTATE AMINO TRANSFERASE 12 Units/L (15-37); BLOOD UREA NITROGEN 7 mg/dL (7-18); CALCIUM 8.5 mg/dL (8.5-10.1); CARBON DIOXIDE 20.6 mmol/L (21-32); CHLORIDE 112 mmol/L (98-107); COR NA(FOR HYPERGLY) 154 mmol/L (136-145); CREATININE 0.94 mg/dL (0.70-1.30); TOTAL PROTEIN 7.4 g/dL (6.4-8.2); eGFR NON BLACK RACES > 60 (>60)
[2018-11-04 07:29] LABS: SODIUM 152 mmol/L (136-145)
[2018-11-04] MEDS: VANCOMYCIN HCL 1 GM VIAL 1 G in NS 250 ML IV 250 ML IV SCH ×2 (08:29→22:24)
[2018-11-04] MEDS ORDERED: TYLENOL 325 MG TAB PO PRN (10:13)
[2018-11-04] MEDS ORDERED: BENADRYL INJ 50 MG VIAL IVP PRN (10:13)
[2018-11-04] MEDS ORDERED: NS 500 ML IV 500 ML IV ONE (10:13)
[2018-11-04] MEDS ORDERED: DULCOLAX SUPPOSITORY 10 MG RECTAL ONE (10:15)
[2018-11-04] MEDS: PEPCID 20 MG IV PREMIX* 20 MG/50 ML BAG IV SCH ×2 (10:41→21:47)
[2018-11-04] MEDS: PROTONIX INJ 40 MG VIAL IVP SCH ×2 (11:19→21:50)
[2018-11-04] MEDS: ZOSYN VIAL 3.375 GRAMS 3.375 G in NS 100 ML IV + SPIKE MINIBAG* 100 ML IV SCH ×3 (11:20→21:48)
--- NOTE | 2018-11-04 11:40 | DR.UPDATE ---
H&P Update History and Physical Update: History and Physical reviewed and patient examined. Changes noted: NO Yes with the following:agree with H&P. Will place TLC for iv access. Pt has Port but requires multiple simultaneous infusions. Procedures (ALL) - Central Line Placement PCM.CLCO: written consent Time out performed: Yes Patient placed pm monitor/pulse ox: Yes MD prep: mask, gown, gloves, other Centrial line prep: chlorhexidine scrub, sterile drapes applied Local anesthsia used: lidocane 1% Ultrasound used for placement: Yes (right IJ easily identified) Central line lumen ininserted: triple Post procedure: sutured in place, good blood return, all ports aspirated, flushed,capped, sterile dressing applied Post procedure xray: tip oc catheter in good position, no pneumothorax seen Patient tolerated procedure: Yes Complications: none
[2018-11-04] MEDS ORDERED: SODIUM BICARBONATE 8.4% INJ ADULT ONE ×2 (11:43→12:04)
[2018-11-04] MEDS ORDERED: NS 1000 ML 0 ML ONE (11:43)
[2018-11-04] MEDS: HumuLIN R SUBCUT PRN ×3 (11:46→22:00)
[2018-11-04] MEDS ORDERED: NS 1/2 1000 ML IV 1,000 ML ONE ×2 (12:03→21:12)
[2018-11-04] MEDS: NS IV SCH ×6 (12:09→21:00)
[2018-11-04] MEDS: [UNRECOGNIZED DRUG - OTHER] IV SCH ×6 (12:09→21:00)
[2018-11-04] MEDS: SODIUM BICARBONATE IV SCH ×6 (12:09→21:00)
--- NOTE | 2018-11-04 12:22 | RAD ---
HISTORY: Central line placement Study: Single view chest Comparison: 11/04/2018 Findings: Right IJ CVL terminates in the distal SVC region. Stable right subclavian port. No infiltrate, effusion or pneumothorax identified. The cardiac and mediastinal contours are within normal limits. The soft tissues are unremarkable. IMPRESSION: 1. Right IJ CVL terminates in the distal SVC region. Stable right subclavian port without acute cardiopulmonary abnormality. Reported By:
[2018-11-04] MEDS ORDERED: NS 250 ML IV 250 ML ONE (12:35)
--- NOTE | 2018-11-04 13:02 | DR.H&P ---
H&P - History & Physical for Day of: H&P Date: 11/03/18 - Chief Complaint Chief Complaint: NAUSEA, VOMITING, HYPERGLYCEMIA, WEAKNESS - History of Present Illness History of Present Illness: IS A 38 YEAR OLD PATIENT OF OURS WHO PRESENTED TO THE ER VIA EMS. ON ARRIVAL, PATIENT IS NOTED TO BE LETHARGIC AND WITH A BLOOD GLUCOSE IN THE 500S. PATIENT REPORTS WEAKNESS, DECREASED APPETITIE, NAUSEA, AND VOMITING. HE IS A KNOW DIABETIC WHO IS OFTEN ADMITTED FOR DKA. HE WAS RELEASED FROM [facility] IN [place] TWO WEEKS AGO. HE WAS ON THE VENTILATOR IN [place]. ON ARRIVAL TO THE ER, VITALS WERE 100.0-123-19-98%-141/96. LABS WERE OBTAINED. ABNORMAL LAB VALUES INCLUDE THE FOLLOWING: WBC 20.0, RBC 3.36, HGB 9.5, HCT 31.6, PLT COUNT 704, INR 1.35, SODIUM 132, CHLORIDE 91, CARBON DIOXIDE 7.6, BUN 24, CREATININE 1.62, GLUCOSE 639, MAGNESIUM 1.6, ALK PHOS 162, TOTAL PROTEIN 9.9, ALBUMIN 2.4, GLOBULIN 7.5, ACETONES MODERATE. AN ABG WAS OBTAINED AND REVEALED: PH 7.180, PC02 13.0, P02 80.0, HC03 4.9, 02 SATURATION 92, BASE EXCESS -21.1. BLOOD CULTURES OBTAINED. A CHEST XRAY WAS OBTAINED AND REVEALED: NO ACUTE CHEST PROCESS. EKG REVEALED: SINUS TACHYCARDIA WITH HR 125. A KUB WAS OBTAINED AND REVEALED: Fecal distention of the colon consistent with constipation. A mechanical obstruction is not suspected. HE WAS ADMITTED TO THE HOSPITAL FOR FURTHER EVALUATION AND TREATMENT OF DKA, DEHYDRATION, METABOLIC ACIDOSIS, AND LEUKOCYTOSIS. HE WAS STARTED ON NORMAL SALINE WITH TWO AMPS OF BICARB AT 200ML/HR, IV ZOSYN, IV FORTAZ, IV VANCOMYCIN, AND AN INSULIN DRIP. OTHERWISE, WE WILL MONITOR LABS AND ABGs. OTHERWISE, WE PLAN TO FOLLOW UP WITH AM LABS AND CONTINUE TO MONITOR. - Past Medical History Past Medical History: Diabetes Additional Medical History: DKA, Gastroparesis, Chronic Low Back Pain With Radiculopathy, Pancreatitis, UTI's - Past Surgical History Surgical History: Other Additional Surgical History: [place] Teeth Surgically Removed - Family History Family Medical History: Diabetes Mellitus, Sudden Cardiac , Hypertension - Social History Does patient currently use any type of tobacco product: Yes Have you used tobacco products in the last 12 months: Yes Type of Tobacco Use: Cigarettes Does any household member use tobacco: No Alcohol Use: None Drug Use: None Prescription drug monitoring program results: PDMP reviewed with concerns identified - Medications Home Medications: No Known Drug Allergies Allergy (Verified 11/03/18 01:58) - Review of Systems Constitutional: Fever, Chills, Weakness, Malaise Eyes: No Symptoms Reported ENT: No Symptoms Reported Respiratory: Shortness of Breath, SOB with Excertion Cardiovascular: No Symptoms Reported Gastrointestinal: See HPI, Nausea, Vomiting, Abdominal Pain, Constipation Genitourinary: No Symptoms Reported Musculoskeletal: No Symptoms Reported Skin: No Symptoms Reported Neurological: Weakness - Physical Exam Vital Signs: Temperature 99.9 F Pulse Rate [Apical] 117 Pulse Rate [Left] 134 Pulse Rate 123 Respiratory Rate 24 Blood Pressure [Left Arm] 139/86 Blood Pressure [Right Arm] 132/81 Blood Pressure 141/96 O2 Sat by Pulse Oximetry 100 Oriented: Person Eyes: Normal Ear: Normal Nose: Normal Throat: Normal Respiratory: Diminished Throughout Cardiovascular: Tachycardia. negative: S3, S4, Murmur : Normal Auscultation: Bowel Sounds: Normal Palpation: Normal Tenderness: Diffuse, Moderate. negative: Rebound, Guarding, Rigidity Skin: Decreased Turgur, Other (PALE ) Musculoskeletal: Normal Psychiatric: Normal Mood Description: Calm Affect: Normal Speech Pattern: Clear - Assessment/Plan (1) DKA (diabetic ketoacidoses) Qualifiers: Diabetes mellitus type: type 1 Status: Acute Plan: ADMIT, INSULIN DRIP, IV FLUIDS MONITOR ABG AND LABS (2) Metabolic acidosis Status: Acute Plan: IV FLUIDS, INSULIN DRIP, MONITOR ABG (3) Acute dehydration Status: Acute Plan: IV FLUIDS, CONTINUE TO MONITOR (4) Leukocytosis Qualifiers: Leukocytosis type: unspecified Qualified Code(s): D72.829 - Elevated white blood cell count, unspecified Status: Acute Plan: IV FORTAZ, IV VANCOMYCIN, CONTINUE TO MONITOR - Allergies Allergies/Adverse Reactions: Allergies Allergy/AdvReac Type Severity Reaction Status Date / Time No Known Drug Allergies Allergy Verified 11/03/18 01:58
[2018-11-04] MEDS ORDERED: PHARMACY COMMENT IV NR (20:30)
[2018-11-04 21:15] LABS: HEMATOCRIT 28.3 % (42.0-54.0)
[2018-11-04 21:16] LABS: HEMOGLOBIN 9.6 g/dL (13.5-18.0)
[2018-11-04 21:28] LABS: CREATININE 0.73 mg/dL (0.70-1.30); VANCOMYCIN,TROUGH 5.4 ug/mL (15-20)
[2018-11-04] MEDS: SNACK - Diabetic Appropriate PO SCH (21:47)
[2018-11-04] MEDS: VANCOMYCIN HCL 1 GM VIAL 1 G in NS 250 ML IV 250 ML IV ONE (23:02)
[2018-11-04] MEDS: MAGNESIUM SULFATE 1 GRAM/100 mL PREMIX 1 GM/100 ML BAG IV PRN (23:50)
[2018-11-05] MEDS: MAGNESIUM SULFATE 1 GRAM/100 mL PREMIX 1 GM/100 ML BAG IV PRN ×5 (00:58→05:38)
[2018-11-05 05:21] LABS: ABG ALLEN TEST POS; ABG BASE EXCESS -6.9 mmol/L (-2.0-2.0); ABG HCO3 14.9 mmol/L (22-26)
[2018-11-05] MEDS: VANCOMYCIN HCL 500 MG VIAL 750 MG in NS 250 ML IV 250 ML IV SCH ×3 (05:23→21:06)
[2018-11-05] MEDS: SODIUM BICARBONATE IV SCH ×3 (05:24)
[2018-11-05] MEDS: NS IV SCH ×5 (05:24→13:31)
[2018-11-05] MEDS: ZOSYN VIAL 3.375 GRAMS 3.375 G in NS 100 ML IV + SPIKE MINIBAG* 100 ML IV SCH ×3 (05:24→22:30)
[2018-11-05] MEDS: [UNRECOGNIZED DRUG - OTHER] IV SCH ×3 (05:24)
[2018-11-05] MEDS ORDERED: NS 1/2 1000 ML IV 1,000 ML ONE (05:27)
[2018-11-05] MEDS: HumuLIN R SUBCUT PRN (05:43)
[2018-11-05 06:20] LABS: BASOPHILS % (AUTO) 0.2 % (0.2-1.0); HEMATOCRIT 30.1 % (42.0-54.0); HEMOGLOBIN 9.8 g/dL (13.5-18.0); LYMPHOCYTES # (AUTO) 1.1 X10^3/uL (1.3-2.9); LYMPHOCYTES % (AUTO) 7.2 % (21.0-51.0); MEAN CORPUSCULAR HEMOGLOBIN 28.2 pg (27.0-34.0); MEAN CORPUSCULAR HGB CONC 32.7 g/dL (33.0-35.0); MEAN CORPUSCULAR VOLUME 86.1 fL (80.0-100.0); MEAN PLATELET VOLUME 6.4 fL (7.4-11.0); MONOCYTES # (AUTO) 0.8 x10^3/uL (0.3-0.8); NEUTROPHILS # (AUTO) 13.7 x10^3/uL (2.2-4.8); NEUTROPHILS % (AUTO) 87.6 % (42.0-75.0); PLATELET COUNT 310 X10^3/uL (150.0-450.0); RED BLOOD COUNT 3.49 X10^6/uL (4.7-6.0); RED CELL DISTRIBUTION WIDTH 15.6 % (11.6-16.5); WHITE BLOOD COUNT 15.6 X10^3/uL (3.6-10.0)
--- NOTE | 2018-11-05 06:20 | RAD ---
HISTORY: Dehydration, DKA Study: Chest AP portable Comparison: 11/04/2018, 11/03/2018 Findings: There is a right-sided port present with its tip in the superior vena cava. There is a right IJ line with its tip in the right atrium. The heart is within normal limits in size. The ariadna are normal. There are now some patchy infiltrates in the perihilar region of the right lower lobe. The remainder of the lung reina are clear. The bony thorax is unremarkable. IMPRESSION: Right IJ line tip right atrium New patchy perihilar infiltrates right lower lobe Reported By:
[2018-11-05 06:32] LABS: SERUM ACETONE SMALL (NEGATIVE)
[2018-11-05] MEDS: VANCOMYCIN HCL 1 GM VIAL 1 G in NS 250 ML IV 250 ML IV ONE (06:38)
[2018-11-05] MEDS: ZOFRAN INJ 4 MG VIAL IVP PRN ×2 (07:38→17:58)
[2018-11-05 07:45] LABS: ALANINE AMINOTRANSFERASE 18 Units/L (12-78); ALBUMIN 2.3 g/dL (3.4-5.0); ALKALINE PHOSPHATASE 131 Units/L (46-116); ASPARTATE AMINO TRANSFERASE 19 Units/L (15-37); BLOOD UREA NITROGEN 7 mg/dL (7-18); CHLORIDE 91 mmol/L (98-107); COR CA(FOR HYPOALB) 9.4 mg/dL (8.5-10.1); COR NA(FOR HYPERGLY) 136 mmol/L (136-145); CREATININE 0.88 mg/dL (0.70-1.30); SODIUM 130 mmol/L (136-145); TOTAL PROTEIN 7.9 g/dL (6.4-8.2); eGFR NON BLACK RACES > 60 (>60)
[2018-11-05 07:48] LABS: CARBON DIOXIDE 13.2 mmol/L (21-32)
[2018-11-05] MEDS ORDERED: SODIUM BICARBONATE IV SCH ×3 (08:16)
[2018-11-05] MEDS ORDERED: NS IV SCH ×3 (08:16)
[2018-11-05] MEDS ORDERED: [UNRECOGNIZED DRUG - OTHER] IV SCH ×3 (08:16)
[2018-11-05] MEDS ORDERED: DULCOLAX SUPPOSITORY 10 MG RECTAL ONE ×2 (08:19→16:53)
[2018-11-05] MEDS: DUONEB 0.5 MG/3 MG NEB SCH ×4 (08:40→20:48)
[2018-11-05] MEDS ORDERED: SALINE 3% 15 ML NEB TX NEB ONE (08:41)
[2018-11-05] MEDS: PEPCID 20 MG IV PREMIX* 20 MG/50 ML BAG IV SCH ×2 (09:49→20:13)
[2018-11-05] MEDS: PROCALAMINE 3 % 1,000 ML IV SCH (11:20)
[2018-11-05] MEDS: METHADONE HCL PO PRN ×2 (11:23→19:41)
[2018-11-05] MEDS: PROTONIX INJ 40 MG VIAL IVP SCH ×2 (12:13→20:10)
[2018-11-05] MEDS: POTASSIUM CHLORIDE IV SCH ×2 (13:31)
--- NOTE | 2018-11-05 16:57 | DR.CONSULT ---
Consult - Consultation for Day of: Date: 11/05/18 - Chief Complaint Chief Complaint: Patient referred for anemia. Patient with complaints of dysphagia, dyspepsia, nausea, vomiting, epigastric pain, and constipation. - History of Present Illness History of Present Illness: Patient is a 38 yo male who was referred for anemia. Patient admitted for DKA. Patient with complaints of dysphagia, dyspepsia, nausea, vomiting, epigastric pain, and constipation. Last BM 1 week ago. Patient denies diarrhea, melena and hematochezia. Patient states he has had a colon and EGD before but unsure when it was. KUB showed fecal distention of the colon consistent with constipation. WBC 15.6, Hgb 9.8 up from 7.5 past 2 units of PRBC, Hct 30.1, Plt 310. INR 1.35, K 2.5, Na 130, Chloride 91, BUN 7, Creatinine 0.88, T. Bili 1.2, AST 19, ALT 18, ALk Phos 131 - Past Medical History Past Medical History: Diabetes Additional Medical History: DKA, Gastroparesis, Chronic Low Back Pain With Radiculopathy, Pancreatitis, UTI's - Past Surgical History Surgical History: Other Additional Surgical History: [place] Teeth Surgically Removed - Family History Family Medical History: Diabetes Mellitus, Sudden Cardiac , Hypertension - Social History Does patient currently use any type of tobacco product: Yes Have you used tobacco products in the last 12 months: Yes Type of Tobacco Use: Cigarettes Does any household member use tobacco: No Alcohol Use: None Drug Use: None - Medications Home Medications: No Known Drug Allergies Allergy (Verified 11/03/18 01:58) - Review of Systems Gastrointestinal: See HPI (dysphagia, dyspepsia), Nausea, Vomiting, Abdominal Pain (epigastric), Constipation - Physical Exam Vital Signs: Temperature 99.4 F Pulse Rate [Apical] 92 Pulse Rate [Left] 134 Pulse Rate 123 Respiratory Rate 18 Blood Pressure [Left Arm] 119/76 Blood Pressure [Right Arm] 132/81 Blood Pressure 141/96 O2 Sat by Pulse Oximetry 100 Oriented: Normal Eyes: Normal Ear: Normal Nose: Normal Throat: Normal Respiratory: Clear Throughout Cardiovascular: Normal Auscultation: Bowel Sounds: Normal Palpation: Normal, Other (no distention). negative: Spleen Enlarged, Liver Enlarged, Mass Pulsatile Tenderness: Epigastric Skin: Normal Musculoskeletal: Normal Psychiatric: Normal Mood Description: Calm Affect: Normal Speech Pattern: Clear, Appropriate - Plan Plan: Assessment. 1. Anemia r/o GI Bleed. 2. Nausea, vomiting, epigastric pain likely secondary to DKA. 3. Dysphagia. Plan. 1. Hemoccult, Will perform endoscopic work up when patient more stable from GI Standpoint, Possible EGD on if patient still in hospital and stable from DKA Standpoint, Monitor Hgb, Transfuse as needed, Cont Protonix IV. Plan reviewed with Dr. Thomson - Allergies Allergies/Adverse Reactions: Allergies Allergy/AdvReac Type Severity Reaction Status Date / Time No Known Drug Allergies Allergy Verified 11/03/18 01:58
--- NOTE | 2018-11-05 19:50 | PCM.PROG ---
Progress Note - Progress Note for Day of Date of Exam: 11/04/18 - Subjective Subjective: WAS ADMITTED FOR DKA, ACUTE DEHYDRATION, LEUKOCYTOSIS, AND METABOLIC ACIDOSIS. TODAY, HE IS LYING IN BED WITH EYES CLOSED ON MORNING ROUNDS. HE OPENS EYES TO VERBAL STIMULI. HIS MOTHER IS AT BEDSIDE AND REPORTS THAT HE CONTINUES WITH SEVERE WEAKNESS AND NAUSEA. ON EXAMINATION, HE IS NOTED TO BE TACHYCARDIC WITH HR IN THE LOW 100s. LUNGS ARE NOTED WITH DIMINISHED LUNG SOUNDS THROUGHOUT. ABDOMEN IS ROUND, SOFT, AND NOTED WITH DIFFUSE TENDERNESS. HYPOACTIVE BOWEL SOUNDS ARE NOTED. HIS VITALS THIS MORNING ARE 99.5-776-41-100%-151/92. LABS WERE OBTAINED. ABNORMAL LAB VALUES INCLUDE THE FOLLOWING: WBC 17.6, RBC 2.75, HGB 7.5, HCT 23.4, SODIUM 152, POTASSIUM 2.6, CHLORIDE 112, CARBON DIOXIDE 20.6, GLUCOSE 186, AST 12, ALBUMIN 2.1, GLOBULIN 5.3. TODAYS ABG REVEALED: PH 7.500, PC02 27.0, P02 90.0, HC03 21.1, 02 SATURATION 98.0, FI02 21.0. BLOOD CULTURES PENDING. WE OBTAINED A KUB. IT REVEALED: Fecal distention of the colon consistent with constipation. A mechanical obstruction is not suspected. CHEST XRAY OBTAINED AND REVEALED: NO ACUTE CARDIOPULMONARY ABNORMALITY. HE IS CURRENTLY RECEIVING NORMAL SALINE WITH TWO AMPS OF BICARB IN EACH LITER AND IV ANTIBIOTICS. TODAY, WE WILL ADD 40MEQ KCL TO IV FLUIDS, TRANSFUSE TWO UNITS OF PACKED RED BLOOD CELLS, START IV PEPCID AND IV PROTONIX, START ZOSYN, AND DISCONTINUE THE FORTAZ THAT HE IS CURRENTLY RECEIVING. WE WILL CONSULT FOR POSSIBLE SCOPE. OTHERWISE, WE WILL FOLLOW UP WITH AM LABS AND ABG AND CONTINUE TO MONITOR. - Past Medical Family Social History Past Med/Fam/Surg Hx: No changes since H&P Allergies: Allergies No Known Drug Allergies Allergy (Verified 11/03/18 01:58) - Review of Systems ROS: No change since H&P - Vital Signs and I&O's Vital Signs: Temperature 98.8 F Pulse Rate [Apical] 87 Pulse Rate [Left] 134 Pulse Rate 123 Respiratory Rate 15 Blood Pressure [Left Arm] 131/83 Blood Pressure [Right Arm] 132/81 Blood Pressure 141/96 O2 Sat by Pulse Oximetry 100 Intake and Output: Intake & Output 11/03/18 11/04/18 11/05/18 11/06/18 11:59 11:59 11:59 11:59 Intake Total 6536 / 6536 7425 / 7425 2751 / 2751 Output Total 4500 / 4500 6500 / 6500 2500 / 2500 Balance 2035 / 2035 925 / 925 251 / 251 - Physical Exam Oriented: Normal Eyes: Normal Ear: Normal Nose: Normal Throat: Normal Cardiovascular: Tachycardia : Normal Auscultation: Bowel Sounds: Normal Palpation: Normal Tenderness: Diffuse, Mild. negative: Rebound, Guarding, Rigidity Skin: Decreased Turgur Musculoskeletal: Normal Psychiatric: Normal Mood Description: Calm, Flat Affect: Flat, Normal Speech Pattern: Clear, Appropriate - Laboratory and Diagnostics Result Diagrams: 11/05/18 06:05 11/05/18 06:05 Labs: 11/05/18 11:59 Sputum - Expectorated Sputum - Final 11/03/18 06:30 Blood Blood Culture - Preliminary 11/03/18 06:20 Blood Blood Culture - Preliminary Laboratory WBC 15.6 X10^3/uL (3.6-10.0) H 11/05/18 06:05 RBC 3.49 X10^6/uL (4.7-6.0) L 11/05/18 06:05 Hgb 9.8 g/dL (13.5-18.0) L 11/05/18 06:05 Hct 30.1 % (42.0-54.0) L 11/05/18 06:05 MCV 86.1 fL (80.0-100.0) 11/05/18 06:05 MCH 28.2 pg (27.0-34.0) 11/05/18 06:05 MCHC 32.7 g/dL (33.0-35.0) L 11/05/18 06:05 RDW 15.6 % (11.6-16.5) 11/05/18 06:05 Plt Count 310 X10^3/uL (150.0-450.0) 11/05/18 06:05 Plt Count Comment Adequate (ADEQUATE) 11/04/18 07:04 MPV 6.4 fL (7.4-11.0) L 11/05/18 06:05 Neut % (Auto) 87.6 % (42.0-75.0) H 11/05/18 06:05 Lymph % (Auto) 7.2 % (21.0-51.0) L 11/05/18 06:05 [place] % (Auto) 5.0 % (0.0-13.0) 11/05/18 06:05 Eos % (Auto) 0.0 % (0.9-2.9) L 11/05/18 06:05 Baso % (Auto) 0.2 % (0.2-1.0) 11/05/18 06:05 Neut # (Auto) 13.7 x10^3/uL (2.2-4.8) H 11/05/18 06:05 Lymph # (Auto) 1.1 X10^3/uL (1.3-2.9) L 11/05/18 06:05 [place] # (Auto) 0.8 x10^3/uL (0.3-0.8) 11/05/18 06:05 Eos # (Auto) 0.0 x10^3/uL (0.0-0.2) 11/05/18 06:05 Baso # (Auto) 0.0 X10^3/uL (0.0-0.1) 11/05/18 06:05 Absolute Nucleated RBC 0.0 /100WBC 11/05/18 06:05 Plt Morphology Comment Normal (NORMAL) 11/04/18 07:04 RBC Morphology Abnormal (NORMAL) 11/04/18 07:04 Anisocytosis Slight A 11/04/18 07:04 INR Target Range - 11/03/18 01:40 INR 1.35 (0.8-1.3) H 11/03/18 01:40 APTT 28.3 SECONDS (22.9-36.5) 11/03/18 01:40 PTT Comment - 11/03/18 01:40 Sample Site Lr 11/05/18 05:16 ABG pH 7.460 (7.35-7.45) H 11/05/18 05:16 ABG pCO2 21.0 mmHg (35.0-45.0) L 11/05/18 05:16 ABG pO2 98.0 mmHg (80.0-100.0) 11/05/18 05:16 ABG HCO3 14.9 mmol/L (22-26) L* 11/05/18 05:16 ABG O2 Saturation 98.0 % (90-100) 11/05/18 05:16 ABG Base Excess -6.9 mmol/L (-2.0-2.0) L 11/05/18 05:16 Geoff Test Pos 11/05/18 05:16 A-a Gradient 25.0 mmHg 11/05/18 05:16 FiO2 21.0 11/05/18 05:16 Blood Gas Comments Marva well ae 11/05/18 05:16 Sodium 130 mmol/L (136-145) L 11/05/18 06:05 Corrected Sodium 136 mmol/L (136-145) 11/05/18 06:05 Potassium 2.5 mmol/L (3.5-5.1) L* 11/05/18 06:05 Chloride 91 mmol/L (98-107) L 11/05/18 06:05 Carbon Dioxide 13.2 mmol/L (21-32) L* 11/05/18 06:05 BUN 7 mg/dL (7-18) 11/05/18 06:05 Creatinine 0.88 mg/dL (0.70-1.30) 11/05/18 06:05 Est GFR (MDRD) Af Amer > 60 (>60) 11/05/18 06:05 Est GFR (MDRD) Non-Af > 60 (>60) 11/05/18 06:05 Glucose 334 mg/dL (65-99) H 11/05/18 06:05 POC Glucose (mg/dL) 139 mg/dL (65-99) H 11/05/18 19:17 Lactic Acid 2.9 mmol/L (0.4-2.0) H 11/03/18 06:20 Calcium 8.0 mg/dL (8.5-10.1) L 11/05/18 06:05 Corrected Calcium 9.4 mg/dL (8.5-10.1) 11/05/18 06:05 Magnesium 2.6 mg/dL (1.7-2.9) 11/05/18 07:22 Total Bilirubin 1.20 mg/dL (0.2-1.0) H 11/05/18 06:05 AST 19 Units/L (15-37) 11/05/18 06:05 ALT 18 Units/L (12-78) 11/05/18 06:05 Alkaline Phosphatase 131 Units/L (46-116) H 11/05/18 06:05 Creatine Kinase 20 Units/L (39-308) L 11/03/18 01:40 CK-MB (CK-2) < 1.0 ng/mL (0-4.0) 11/03/18 01:40 CK/CKMB % Calc 5.0 % (<4) 11/03/18 01:40 Troponin I < 0.02 ng/mL (0-1.5) 11/03/18 01:40 Total Protein 7.9 g/dL (6.4-8.2) 11/05/18 06:05 Albumin 2.3 g/dL (3.4-5.0) L 11/05/18 06:05 Globulin 5.6 g/dL (2.5-4.5) H 11/05/18 06:05 Albumin/Globulin Ratio 0.4 Ratio (1.1-2.1) L 11/05/18 06:05 Specimen Type Random urine 11/03/18 04:43 Urine Color Yellow (YELLOW) 11/03/18 04:43 Urine Appearance Clear (CLEAR) 11/03/18 04:43 Urine pH 5.0 (5.0 - 8.0) 11/03/18 04:43 Ur Specific [place] 1.020 (1.000-1.030) 11/03/18 04:43 Urine Protein 1+ (NEGATIVE) 11/03/18 04:43 Urine Glucose (UA) 4+ (NEGATIVE) 11/03/18 04:43 Urine Ketones 4+ (NEGATIVE) 11/03/18 04:43 Urine Occult Blood Negative (NEGATIVE) 11/03/18 04:43 Urine Nitrite Negative (NEGATIVE) 11/03/18 04:43 Urine Bilirubin Negative (NEGATIVE) 11/03/18 04:43 Urine Urobilinogen Normal (NORMAL) 11/03/18 04:43 Ur Leukocyte Esterase Negative (NEGATIVE) 11/03/18 04:43 Urine RBC None seen /HPF (NONE SEEN) 11/03/18 04:43 Urine WBC None seen /HPF (NONE SEEN) 11/03/18 04:43 Ur Squamous Epith Cells Rare /HPF (NEGATIVE) 11/03/18 04:43 Urine Bacteria Negative /HPF (NEGATIVE) 11/03/18 04:43 Ur Culture Indicated? No/not indicated 11/03/18 04:43 Vancomycin Trough 5.4 ug/mL (15-20) L 11/04/18 21:00 Acetone, Semi-Quant Small (NEGATIVE) H 11/05/18 06:05 Blood Type A POSITIVE 11/04/18 10:39 Antibody Screen Negative 11/04/18 10:39 Crossmatch See Detail 11/04/18 10:39 - Plan (1) DKA (diabetic ketoacidoses) Status: Acute Qualifiers: Diabetes mellitus type: type 1 Plan: ADMIT, INSULIN DRIP, IV FLUIDS MONITOR ABG AND LABS (2) Metabolic acidosis Status: Acute Plan: IV FLUIDS, INSULIN DRIP, MONITOR ABG (3) Acute dehydration Status: Acute Plan: IV FLUIDS, CONTINUE TO MONITOR (4) Leukocytosis Status: Acute Qualifiers: Leukocytosis type: unspecified Qualified Code(s): D72.829 - Elevated white blood cell count, unspecified Plan: IV ZOSYN, IV VANCOMYCIN, CONTINUE TO MONITOR (5) Anemia Status: Acute Qualifiers: Anemia type: iron deficiency Iron deficiency anemia type: chronic blood loss Qualified Code(s): D50.0 - Iron deficiency anemia secondary to blood loss (chronic) Plan: TRANSFUSE TWO UNITS PRBC, CONTINUE TO MONITOR
[2018-11-05] MEDS ORDERED: SNACK - Diabetic Appropriate PO SCH (20:00)
[2018-11-05] MEDS: SNACK - Diabetic Appropriate PO SCH (20:39)
[2018-11-05] MEDS ORDERED: PHARMACY COMMENT IV SCH (21:45)
[2018-11-06] MEDS: ZOFRAN INJ 4 MG VIAL IVP PRN
[2018-11-06] MEDS: POTASSIUM CHLORIDE IV SCH ×4 (00:58→11:55)
[2018-11-06] MEDS: NS IV SCH ×4 (00:58→11:55)
[2018-11-06] MEDS: METHADONE HCL PO PRN ×2 (01:45→08:23)
[2018-11-06 05:01] LABS: BASOPHILS % (AUTO) 0.2 % (0.2-1.0); EOSINOPHILS # (AUTO) 0.1 x10^3/uL (0.0-0.2); EOSINOPHILS % (AUTO) 0.9 % (0.9-2.9); HEMATOCRIT 29.2 % (42.0-54.0); LYMPHOCYTES # (AUTO) 1.8 X10^3/uL (1.3-2.9); LYMPHOCYTES % (AUTO) 18.3 % (21.0-51.0); MEAN CORPUSCULAR HEMOGLOBIN 28.3 pg (27.0-34.0); MEAN CORPUSCULAR HGB CONC 34.3 g/dL (33.0-35.0); MEAN CORPUSCULAR VOLUME 82.4 fL (80.0-100.0); MEAN PLATELET VOLUME 6.2 fL (7.4-11.0); MONOCYTES # (AUTO) 0.7 x10^3/uL (0.3-0.8); MONOCYTES % (AUTO) 7.5 % (0.0-13.0); NEUTROPHILS # (AUTO) 7.1 x10^3/uL (2.2-4.8); NEUTROPHILS % (AUTO) 73.1 % (42.0-75.0); PLATELET COUNT 261 X10^3/uL (150.0-450.0); RED BLOOD COUNT 3.54 X10^6/uL (4.7-6.0); RED CELL DISTRIBUTION WIDTH 15.1 % (11.6-16.5); WHITE BLOOD COUNT 9.7 X10^3/uL (3.6-10.0)
[2018-11-06 05:14] LABS: ALANINE AMINOTRANSFERASE 12 Units/L (12-78); ALKALINE PHOSPHATASE 103 Units/L (46-116); ASPARTATE AMINO TRANSFERASE 12 Units/L (15-37); BLOOD UREA NITROGEN 5 mg/dL (7-18); CALCIUM 7.9 mg/dL (8.5-10.1); CARBON DIOXIDE 28.7 mmol/L (21-32); CHLORIDE 99 mmol/L (98-107); COR CA(FOR HYPOALB) 9.5 mg/dL (8.5-10.1); COR NA(FOR HYPERGLY) 138 mmol/L (136-145); CREATININE 0.69 mg/dL (0.70-1.30); MAGNESIUM 1.7 mg/dL (1.7-2.9); SODIUM 137 mmol/L (136-145); TOTAL PROTEIN 6.6 g/dL (6.4-8.2); eGFR NON BLACK RACES > 60 (>60)
[2018-11-06 05:19] LABS: VANCOMYCIN,TROUGH 10.9 ug/mL (15-20)
[2018-11-06] MEDS: VANCOMYCIN HCL 500 MG VIAL 750 MG in NS 250 ML IV 250 ML IV SCH ×3 (05:31→21:25)
[2018-11-06] MEDS: ZOSYN VIAL 3.375 GRAMS 3.375 G in NS 100 ML IV + SPIKE MINIBAG* 100 ML IV SCH ×3 (06:42→22:55)
[2018-11-06] MEDS: PROTONIX INJ 40 MG VIAL IVP SCH ×2 (08:24→20:48)
[2018-11-06] MEDS: DUONEB 0.5 MG/3 MG NEB SCH ×4 (09:04→20:18)
[2018-11-06 10:11] LABS: ABG BASE EXCESS 9.3 mmol/L (-2.0-2.0); ABG HCO3 33.5 mmol/L (22-26)
[2018-11-06 10:12] LABS: ABG ALLEN TEST POS; FRACTIONATED INSPIRED OXYGEN 21
--- NOTE | 2018-11-06 10:16 | RAD ---
Exam: Portable chest History: 38-year-old male with diabetes and dehydration Comparison: Previous chest radiograph from 11/05/2018. Findings: No interval change in position of right IJ line. Right chest wall port is again seen as well with the tip of the catheter at the caval atrial junction. Heart size and pulmonary vasculature are normal. Partial clearing of the right basilar infiltrate is seen. Remainder the lungs are clear. No significant effusion on either side. Bony thorax is unremarkable. Impression: Partial clearing of right basilar infiltrate Reported By:
[2018-11-06] MEDS: PEPCID 20 MG IV PREMIX* 20 MG/50 ML BAG IV SCH ×2 (10:42→20:48)
[2018-11-06] MEDS: PROCALAMINE 3 % 1,000 ML IV SCH (11:18)
[2018-11-06] MEDS: SNACK - Diabetic Appropriate PO SCH (20:00)
--- NOTE | 2018-11-06 22:10 | PCM.PROG ---
Progress Note - Progress Note for Day of Date of Exam: 11/05/18 - Subjective Subjective: WAS ADMITTED FOR DKA, ACUTE DEHYDRATION, LEUKOCYTOSIS, AND METABOLIC ACIDOSIS, AND ANEMIA. HE RECEIVED TWO UNITS OF PACKED RED BLOOD CELLS YESTERDAY. TODAY, HE IS LYING IN BED WITH EYES CLOSED ON MORNING ROUNDS. HE OPENS EYES TO VERBAL STIMULI. HE DOES RESPOND VERBALLY THIS MORNING. HE CONTINUES WITH WEAKNESS AND ALSO REPORTS ABDOMINAL PAIN THIS MORNING. ON EXAMINATION, HE IS NOTED TO BE TACHYCARDIC WITH HR IN THE LOW 100s. LUNGS ARE NOTED WITH DIMINISHED LUNG SOUNDS THROUGHOUT. ABDOMEN IS ROUND, SOFT, AND NOTED WITH DIFFUSE TENDERNESS. HYPOACTIVE BOWEL SOUNDS ARE NOTED. HIS VITALS THIS MORNING ARE 99.1-249-82-100%-139/86. LABS WERE OBTAINED. ABNORMAL LAB VALUES INCLUDE THE FOLLOWING: WBC 15.6, RBC 3.49, HGB 9.8, HCT 30.1, SODIUM 130, POTASSIUM 2.5, CHLORIDE 91, CARBON DIOXIDE 13.2, GLUCOSE 334, CALCIUM 8.0, TOTAL BILI 1.20, ALUBMIN 2.3, GLOBULIN 5.6. TODAYS ABG REVEALED: PH 7.460, PC02 21.0, P02 98.0, HC03 14.9, 02 SATURATION 98%, BASE EXCESS -6.9. BLOOD CULTURES PENDI NG. WE OBTAINED A CHEST XRAY THIS MORNING. IT REVEALED: Right IJ line tip right atrium. New patchy perihilar infiltrates right lower lobe. HE IS CURRENTLY RECEIVING NORMAL SALINE WITH 40MEQ KCL AND TWO AMPS OF BICARB IN EACH LITER AND IV ANTIBIOTICS. TODAY, WE WILL DISCONTINUE THE BICARB FROM IV FLUIDS AND START PROCAL AT 50ML/HR. WE WILL START HIS METHADONE BACK AT 10MG PO QID PRN. CONSULTED WITH PATIENT AND PLANS FOR AN EGD ON MONDAY IF HE IS STABLE. OTHERWISE, WE WILL FOLLOW UP WITH AM LABS AND ABG AND CONTINUE TO MONITOR. - Past Medical Family Social History Past Med/Fam/Surg Hx: No changes since H&P Allergies: Allergies No Known Drug Allergies Allergy (Verified 11/03/18 01:58) - Review of Systems ROS: No change since H&P - Vital Signs and I&O's Vital Signs: Temperature 98.5 F Pulse Rate [Apical] 77 Pulse Rate [Left] 134 Pulse Rate 62 Respiratory Rate 8 Blood Pressure [Left Arm] 143/90 Blood Pressure [Right Arm] 132/81 Blood Pressure 160/92 O2 Sat by Pulse Oximetry 98 Intake and Output: Intake & Output 11/04/18 11/05/18 11/06/18 11/07/18 11:59 11:59 11:59 11:59 Intake Total 6536 / 6536 7425 / 7425 5373 / 5373 1429 / 1429 Output Total 4500 / 4500 6500 / 6500 4325 / 4325 1999 / 1999 Balance 2035 925 / 925 1048 / 1048 -571 / -571 - Physical Exam Oriented: Normal Eyes: Normal Ear: Normal Nose: Normal Throat: Normal Cardiovascular: Tachycardia : Normal Auscultation: Bowel Sounds: Normal Palpation: Normal Tenderness: Diffuse, Mild. negative: Rebound, Guarding, Rigidity Skin: Decreased Turgur Musculoskeletal: Normal Psychiatric: Normal Mood Description: Calm, Flat Affect: Flat, Normal Speech Pattern: Clear - Laboratory and Diagnostics Result Diagrams: 11/06/18 04:45 11/06/18 04:45 Labs: 11/05/18 11:59 Sputum - Expectorated Sputum Sputum Culture - Preliminary 11/05/18 11:59 Sputum - Expectorated Sputum - Final 11/03/18 06:30 Blood Blood Culture - Preliminary 11/03/18 06:20 Blood Blood Culture - Preliminary Laboratory WBC 9.7 X10^3/uL (3.6-10.0) 11/06/18 04:45 RBC 3.54 X10^6/uL (4.7-6.0) L 11/06/18 04:45 Hgb 10.0 g/dL (13.5-18.0) L 11/06/18 04:45 Hct 29.2 % (42.0-54.0) L 11/06/18 04:45 MCV 82.4 fL (80.0-100.0) 11/06/18 04:45 MCH 28.3 pg (27.0-34.0) 11/06/18 04:45 MCHC 34.3 g/dL (33.0-35.0) 11/06/18 04:45 RDW 15.1 % (11.6-16.5) 11/06/18 04:45 Plt Count 261 X10^3/uL (150.0-450.0) 11/06/18 04:45 Plt Count Comment Adequate (ADEQUATE) 11/04/18 07:04 MPV 6.2 fL (7.4-11.0) L 11/06/18 04:45 Neut % (Auto) 73.1 % (42.0-75.0) 11/06/18 04:45 Lymph % (Auto) 18.3 % (21.0-51.0) L 11/06/18 04:45 [place] % (Auto) 7.5 % (0.0-13.0) 11/06/18 04:45 Eos % (Auto) 0.9 % (0.9-2.9) 11/06/18 04:45 Baso % (Auto) 0.2 % (0.2-1.0) 11/06/18 04:45 Neut # (Auto) 7.1 x10^3/uL (2.2-4.8) H 11/06/18 04:45 Lymph # (Auto) 1.8 X10^3/uL (1.3-2.9) 11/06/18 04:45 [place] # (Auto) 0.7 x10^3/uL (0.3-0.8) 11/06/18 04:45 Eos # (Auto) 0.1 x10^3/uL (0.0-0.2) 11/06/18 04:45 Baso # (Auto) 0.0 X10^3/uL (0.0-0.1) 11/06/18 04:45 Absolute Nucleated RBC 0.0 /100WBC 11/06/18 04:45 Plt Morphology Comment Normal (NORMAL) 11/04/18 07:04 RBC Morphology Abnormal (NORMAL) 11/04/18 07:04 Anisocytosis Slight A 11/04/18 07:04 INR Target Range - 11/03/18 01:40 INR 1.35 (0.8-1.3) H 11/03/18 01:40 APTT 28.3 SECONDS (22.9-36.5) 11/03/18 01:40 PTT Comment - 11/03/18 01:40 Sample Site Right radial 11/06/18 10:00 ABG pH 7.500 (7.35-7.45) H 11/06/18 10:00 ABG pCO2 43.0 mmHg (35.0-45.0) 11/06/18 10:00 ABG pO2 77.0 mmHg (80.0-100.0) L 11/06/18 10:00 ABG HCO3 33.5 mmol/L (22-26) H* 11/06/18 10:00 ABG O2 Saturation 96.0 % (90-100) 11/06/18 10:00 ABG Base Excess 9.3 mmol/L (-2.0-2.0) H 11/06/18 10:00 Geoff Test Pos 11/06/18 10:00 A-a Gradient Not Reportable 11/06/18 10:00 FiO2 21 11/06/18 10:00 Blood Gas Comments Marva well cb 11/06/18 10:00 Sodium 137 mmol/L (136-145) 11/06/18 04:45 Corrected Sodium 138 mmol/L (136-145) 11/06/18 04:45 Potassium 2.7 mmol/L (3.5-5.1) L* 11/06/18 04:45 Chloride 99 mmol/L (98-107) 11/06/18 04:45 Carbon Dioxide 28.7 mmol/L (21-32) 11/06/18 04:45 BUN 5 mg/dL (7-18) L 11/06/18 04:45 Creatinine 0.69 mg/dL (0.70-1.30) L 11/06/18 04:45 Est GFR (MDRD) Af Amer > 60 (>60) 11/06/18 04:45 Est GFR (MDRD) Non-Af > 60 (>60) 11/06/18 04:45 Glucose 137 mg/dL (65-99) H 11/06/18 04:45 POC Glucose (mg/dL) 123 mg/dL (65-99) H 11/06/18 21:26 Lactic Acid 2.9 mmol/L (0.4-2.0) H 11/03/18 06:20 Calcium 7.9 mg/dL (8.5-10.1) L 11/06/18 04:45 Corrected Calcium 9.5 mg/dL (8.5-10.1) 11/06/18 04:45 Magnesium 1.7 mg/dL (1.7-2.9) 11/06/18 04:45 Total Bilirubin 0.70 mg/dL (0.2-1.0) 11/06/18 04:45 AST 12 Units/L (15-37) L 11/06/18 04:45 ALT 12 Units/L (12-78) 11/06/18 04:45 Alkaline Phosphatase 103 Units/L (46-116) 11/06/18 04:45 Creatine Kinase 20 Units/L (39-308) L 11/03/18 01:40 CK-MB (CK-2) < 1.0 ng/mL (0-4.0) 11/03/18 01:40 CK/CKMB % Calc 5.0 % (<4) 11/03/18 01:40 Troponin I < 0.02 ng/mL (0-1.5) 11/03/18 01:40 Total Protein 6.6 g/dL (6.4-8.2) 11/06/18 04:45 Albumin 2.0 g/dL (3.4-5.0) L 11/06/18 04:45 Globulin 4.6 g/dL (2.5-4.5) H 11/06/18 04:45 Albumin/Globulin Ratio 0.4 Ratio (1.1-2.1) L 11/06/18 04:45 Specimen Type Random urine 11/03/18 04:43 Urine Color Yellow (YELLOW) 11/03/18 04:43 Urine Appearance Clear (CLEAR) 11/03/18 04:43 Urine pH 5.0 (5.0 - 8.0) 11/03/18 04:43 Ur Specific [place] 1.020 (1.000-1.030) 11/03/18 04:43 Urine Protein 1+ (NEGATIVE) 11/03/18 04:43 Urine Glucose (UA) 4+ (NEGATIVE) 11/03/18 04:43 Urine Ketones 4+ (NEGATIVE) 11/03/18 04:43 Urine Occult Blood Negative (NEGATIVE) 11/03/18 04:43 Urine Nitrite Negative (NEGATIVE) 11/03/18 04:43 Urine Bilirubin Negative (NEGATIVE) 11/03/18 04:43 Urine Urobilinogen Normal (NORMAL) 11/03/18 04:43 Ur Leukocyte Esterase Negative (NEGATIVE) 11/03/18 04:43 Urine RBC None seen /HPF (NONE SEEN) 11/03/18 04:43 Urine WBC None seen /HPF (NONE SEEN) 11/03/18 04:43 Ur Squamous Epith Cells Rare /HPF (NEGATIVE) 11/03/18 04:43 Urine Bacteria Negative /HPF (NEGATIVE) 11/03/18 04:43 Ur Culture Indicated? No/not indicated 11/03/18 04:43 Vancomycin Trough 10.9 ug/mL (15-20) L 11/06/18 04:45 Acetone, Semi-Quant Small (NEGATIVE) H 11/06/18 04:45 Blood Type A POSITIVE 11/04/18 10:39 Antibody Screen Negative 11/04/18 10:39 Crossmatch See Detail 11/04/18 10:39 - Plan (1) DKA (diabetic ketoacidoses) Status: Acute Qualifiers: Diabetes mellitus type: type 1 Plan: INSULIN DRIP, IV FLUIDS MONITOR ABG AND LABS (2) Metabolic acidosis Status: Acute Plan: IV FLUIDS, INSULIN DRIP, MONITOR ABG (3) Pneumonia Status: Acute Qualifiers: Pneumonia type: due to unspecified organism Laterality: right Lung location: lower lobe of lung Qualified Code(s): J18.1 - Lobar pneumonia, unspecified organism Plan: IV ANTIBIOTICS, RESPIRATORY TX, OBTAIN SPUTUM CULTURE, CONTINUE TO MONITOR (4) Acute dehydration Status: Acute Plan: IV FLUIDS, CONTINUE TO MONITOR (5) Leukocytosis Status: Acute Qualifiers: Leukocytosis type: unspecified Qualified Code(s): D72.829 - Elevated white blood cell count, unspecified Plan: IV ZOSYN, IV VANCOMYCIN, CONTINUE TO MONITOR (6) Anemia Status: Acute Qualifiers: Anemia type: iron deficiency Iron deficiency anemia type: chronic blood loss Qualified Code(s): D50.0 - Iron deficiency anemia secondary to blood loss (chronic) Plan: CONTINUE TO MONITOR
[2018-11-07] MEDS: METHADONE HCL PO PRN ×3 (01:19→14:54)
[2018-11-07] MEDS: NS IV SCH ×4 (02:00→17:09)
[2018-11-07] MEDS: POTASSIUM CHLORIDE IV SCH ×4 (02:00→17:09)
[2018-11-07] MEDS: VANCOMYCIN HCL 500 MG VIAL 750 MG in NS 250 ML IV 250 ML IV SCH (05:38)
[2018-11-07 06:14] LABS: BASOPHILS % (AUTO) 0.5 % (0.2-1.0); EOSINOPHILS # (AUTO) 0.2 x10^3/uL (0.0-0.2); EOSINOPHILS % (AUTO) 3.2 % (0.9-2.9); HEMATOCRIT 31.6 % (42.0-54.0); HEMOGLOBIN 10.7 g/dL (13.5-18.0); LYMPHOCYTES % (AUTO) 26.1 % (21.0-51.0); MEAN CORPUSCULAR HGB CONC 33.9 g/dL (33.0-35.0); MEAN CORPUSCULAR VOLUME 82.7 fL (80.0-100.0); MEAN PLATELET VOLUME 6.9 fL (7.4-11.0); MONOCYTES # (AUTO) 0.8 x10^3/uL (0.3-0.8); MONOCYTES % (AUTO) 10.3 % (0.0-13.0); NEUTROPHILS # (AUTO) 4.7 x10^3/uL (2.2-4.8); NEUTROPHILS % (AUTO) 59.9 % (42.0-75.0); PLATELET COUNT 267 X10^3/uL (150.0-450.0); RED BLOOD COUNT 3.83 X10^6/uL (4.7-6.0); RED CELL DISTRIBUTION WIDTH 15.4 % (11.6-16.5); WHITE BLOOD COUNT 7.8 X10^3/uL (3.6-10.0)
[2018-11-07 06:23] LABS: ALANINE AMINOTRANSFERASE 15 Units/L (12-78); ALBUMIN 1.9 g/dL (3.4-5.0); ALKALINE PHOSPHATASE 98 Units/L (46-116); ASPARTATE AMINO TRANSFERASE 16 Units/L (15-37); BLOOD UREA NITROGEN 7 mg/dL (7-18); CALCIUM 8.2 mg/dL (8.5-10.1); CARBON DIOXIDE 28.8 mmol/L (21-32); CHLORIDE 102 mmol/L (98-107); COR CA(FOR HYPOALB) 9.9 mg/dL (8.5-10.1); COR NA(FOR HYPERGLY) 139 mmol/L (136-145); CREATININE 0.55 mg/dL (0.70-1.30); MAGNESIUM 1.5 mg/dL (1.7-2.9); SODIUM 137 mmol/L (136-145); TOTAL PROTEIN 6.4 g/dL (6.4-8.2); eGFR NON BLACK RACES > 60 (>60)
[2018-11-07 06:26] LABS: ABG BASE EXCESS 9.8 mmol/L (-2.0-2.0)
[2018-11-07 06:28] LABS: ABG ALLEN TEST POS; ABG HCO3 33.4 mmol/L (22-26)
[2018-11-07] MEDS: ZOSYN VIAL 3.375 GRAMS 3.375 G in NS 100 ML IV + SPIKE MINIBAG* 100 ML IV SCH ×3 (06:32→22:14)
[2018-11-07] MEDS: PROCALAMINE 3 % 1,000 ML IV SCH (06:33)
--- NOTE | 2018-11-07 06:41 | RAD ---
HISTORY: Dehydration, DKA Study: Chest AP portable Comparison: 11/06/2018 Findings: There is a right-sided port present. There is a right IJ line with its tip in the right atrium. The heart is within normal limits in size. The ariadna are normal. The lung reina are now clear. No pleural effusions are identified. The bony thorax is unremarkable. IMPRESSION: Lungs now clear Reported By:
[2018-11-07] MEDS: MIRALAX POWDER (1 DOSE 17 G) PO SCH (08:23)
[2018-11-07] MEDS: PEPCID 20 MG IV PREMIX* 20 MG/50 ML BAG IV SCH ×2 (08:23→21:04)
[2018-11-07] MEDS: COLACE CAP 100 MG PO SCH ×2 (08:25→20:59)
[2018-11-07] MEDS: MILK OF MAGNESIA PO SCH ×4 (08:25→20:59)
[2018-11-07] MEDS: PROTONIX INJ 40 MG VIAL IVP SCH ×2 (08:26→21:04)
[2018-11-07] MEDS: DUONEB 0.5 MG/3 MG NEB SCH ×3 (09:38→17:17)
[2018-11-07] MEDS: LEVEMIR SC SCH ×2 (11:38→21:06)
[2018-11-07] MEDS: HumuLIN R SUBCUT PRN ×3 (11:39→21:05)
[2018-11-07] MEDS ORDERED: PHARMACY COMMENT IV NR (13:30)
[2018-11-07 14:01] LABS: CREATININE 0.71 mg/dL (0.70-1.30)
[2018-11-07] MEDS: VANCOMYCIN HCL 1 GM VIAL 1 G in NS 250 ML IV 250 ML IV SCH ×2 (14:43→21:04)
[2018-11-07] MEDS: SNACK - Diabetic Appropriate PO SCH (20:00)
--- NOTE | 2018-11-07 21:20 | PCM.PROG ---
Progress Note - Progress Note for Day of Date of Exam: 11/06/18 - Subjective Subjective: WAS ADMITTED FOR DKA, ACUTE DEHYDRATION, LEUKOCYTOSIS, AND METABOLIC ACIDOSIS, AND ANEMIA. HE RECEIVED TWO UNITS OF PACKED RED BLOOD CELLS ON 11/03. TODAY, HE IS ALERT, LYING IN BED ON MORNING ROUNDS. HE CONTINUES WITH WEAKNESS AND ALSO REPORTS ABDOMINAL PAIN THIS MORNING. ON EXAMINATION, HEART IS REGULAR IN RATE AND RHYTHM. BILATERAL LUNGS ARE NOTED WITH DIMINISHED LUNG SOUNDS THROUGHOUT. ABDOMEN IS ROUND, SOFT, AND NOTED WITH DIFFUSE TENDERNESS. HYPOACTIVE BOWEL SOUNDS ARE NOTED. HIS VITALS THIS MORNING ARE 98.2-78-15-98%-134/87. LABS WERE OBTAINED. ABNORMAL LAB VALUES INCLUDE THE FOLLOWING: RBC 3.54, HGB 10.0, HCT 29.2, POTASSIUM 2.7, BUN 5, CREATININE 0.69, GLUCOSE 137, CALCIUM 7.9, AST 12, ALBUMIN 2.0. TODAYS ABG REVEALED: PH 7.500, PC02 43.0, P02 77.0, HC03 33.5, 02 SATURATION 96.0, BASE EXCESS 9.3. BLOOD AND SPUTUM PENDING. WE OBTAINED A CHEST XRAY THIS MORNING. IT REVEALED: Partial clearing of right basilar infiltrate. HE IS CURRENTLY RECEIVING NORMAL SALINE WITH 40MEQ KCL AND PROCALAMINE. CONSULTED WITH PATIENT AND PLANS FOR AN EGD ON MONDAY IF HE REMAINS STABLE. OTHERWISE, WE WILL FOLLOW UP WITH AM LABS AND ABG AND CONTINUE TO MONITOR. - Past Medical Family Social History Past Med/Fam/Surg Hx: No changes since H&P Allergies: Allergies No Known Drug Allergies Allergy (Verified 11/03/18 01:58) - Review of Systems ROS: No change since H&P - Vital Signs and I&O's Vital Signs: Temperature 98.4 F Pulse Rate [Apical] 77 Pulse Rate [Left] 134 Pulse Rate 85 Respiratory Rate 22 Blood Pressure [Left Arm] 143/90 Blood Pressure [Right Arm] 132/81 Blood Pressure 128/92 O2 Sat by Pulse Oximetry 97 Intake and Output: Intake & Output 11/05/18 11/06/18 11/07/18 11/08/18 11:59 11:59 11:59 11:59 Intake Total 7425 / 7425 5373 / 5373 4489 / 4489 1899 / 1899 Output Total 6500 / 6500 4325 / 4325 4100 / 4100 2024 Balance 925 / 925 1048 / 1048 389 / 389 -126 / -126 - Physical Exam Oriented: Normal Eyes: Normal Ear: Normal Nose: Normal Throat: Normal Cardiovascular: Tachycardia : Normal Auscultation: Bowel Sounds: Normal Tenderness: Diffuse, Mild. negative: Rebound, Guarding, Rigidity Skin: Decreased Turgur Musculoskeletal: Normal Psychiatric: Normal Mood Description: Calm, Flat Affect: Flat, Normal Speech Pattern: Clear - Laboratory and Diagnostics Result Diagrams: 11/07/18 05:18 11/07/18 13:40 Labs: 11/05/18 11:59 Sputum - Expectorated Sputum Sputum Culture - Final 11/05/18 11:59 Sputum - Expectorated Sputum - Final 11/03/18 06:30 Blood Blood Culture - Preliminary 11/03/18 06:20 Blood Blood Culture - Preliminary Laboratory WBC 7.8 X10^3/uL (3.6-10.0) 11/07/18 05:18 RBC 3.83 X10^6/uL (4.7-6.0) L 11/07/18 05:18 Hgb 10.7 g/dL (13.5-18.0) L 11/07/18 05:18 Hct 31.6 % (42.0-54.0) L 11/07/18 05:18 MCV 82.7 fL (80.0-100.0) 11/07/18 05:18 MCH 28.0 pg (27.0-34.0) 11/07/18 05:18 MCHC 33.9 g/dL (33.0-35.0) 11/07/18 05:18 RDW 15.4 % (11.6-16.5) 11/07/18 05:18 Plt Count 267 X10^3/uL (150.0-450.0) 11/07/18 05:18 Plt Count Comment Adequate (ADEQUATE) 11/04/18 07:04 MPV 6.9 fL (7.4-11.0) L 11/07/18 05:18 Neut % (Auto) 59.9 % (42.0-75.0) 11/07/18 05:18 Lymph % (Auto) 26.1 % (21.0-51.0) 11/07/18 05:18 [place] % (Auto) 10.3 % (0.0-13.0) 11/07/18 05:18 Eos % (Auto) 3.2 % (0.9-2.9) H 11/07/18 05:18 Baso % (Auto) 0.5 % (0.2-1.0) 11/07/18 05:18 Neut # (Auto) 4.7 x10^3/uL (2.2-4.8) 11/07/18 05:18 Lymph # (Auto) 2.0 X10^3/uL (1.3-2.9) 11/07/18 05:18 [place] # (Auto) 0.8 x10^3/uL (0.3-0.8) 11/07/18 05:18 Eos # (Auto) 0.2 x10^3/uL (0.0-0.2) 11/07/18 05:18 Baso # (Auto) 0.0 X10^3/uL (0.0-0.1) 11/07/18 05:18 Absolute Nucleated RBC 0.0 /100WBC 11/07/18 05:18 Plt Morphology Comment Normal (NORMAL) 11/04/18 07:04 RBC Morphology Abnormal (NORMAL) 11/04/18 07:04 Anisocytosis Slight A 11/04/18 07:04 INR Target Range - 11/03/18 01:40 INR 1.35 (0.8-1.3) H 11/03/18 01:40 APTT 28.3 SECONDS (22.9-36.5) 11/03/18 01:40 PTT Comment - 11/03/18 01:40 Sample Site [place] 11/07/18 06:18 ABG pH 7.530 (7.35-7.45) H 11/07/18 06:18 ABG pCO2 40.0 mmHg (35.0-45.0) 11/07/18 06:18 ABG pO2 75.0 mmHg (80.0-100.0) L 11/07/18 06:18 ABG HCO3 33.4 mmol/L (22-26) H* 11/07/18 06:18 ABG O2 Saturation 96.0 % (90-100) 11/07/18 06:18 ABG Base Excess 9.8 mmol/L (-2.0-2.0) H 11/07/18 06:18 Geoff Test Pos 11/07/18 06:18 A-a Gradient 25.0 mmHg 11/07/18 06:18 FiO2 21.0 11/07/18 06:18 Blood Gas Comments Marva abg well-mtf 11/07/18 06:18 Sodium 137 mmol/L (136-145) 11/07/18 05:18 Corrected Sodium 139 mmol/L (136-145) 11/07/18 05:18 Potassium 3.0 mmol/L (3.5-5.1) L* 11/07/18 05:18 Chloride 102 mmol/L (98-107) 11/07/18 05:18 Carbon Dioxide 28.8 mmol/L (21-32) 11/07/18 05:18 BUN 7 mg/dL (7-18) 11/07/18 05:18 Creatinine 0.71 mg/dL (0.70-1.30) 11/07/18 13:40 Est GFR (MDRD) Af Amer > 60 (>60) 11/07/18 05:18 Est GFR (MDRD) Non-Af > 60 (>60) 11/07/18 05:18 Glucose 165 mg/dL (65-99) H 11/07/18 05:18 POC Glucose (mg/dL) 233 mg/dL (65-99) H 11/07/18 20:27 Lactic Acid 2.9 mmol/L (0.4-2.0) H 11/03/18 06:20 Calcium 8.2 mg/dL (8.5-10.1) L 11/07/18 05:18 Corrected Calcium 9.9 mg/dL (8.5-10.1) 11/07/18 05:18 Magnesium 1.5 mg/dL (1.7-2.9) L 11/07/18 05:18 Total Bilirubin 0.40 mg/dL (0.2-1.0) 11/07/18 05:18 AST 16 Units/L (15-37) 11/07/18 05:18 ALT 15 Units/L (12-78) 11/07/18 05:18 Alkaline Phosphatase 98 Units/L (46-116) 11/07/18 05:18 Creatine Kinase 20 Units/L (39-308) L 11/03/18 01:40 CK-MB (CK-2) < 1.0 ng/mL (0-4.0) 11/03/18 01:40 CK/CKMB % Calc 5.0 % (<4) 11/03/18 01:40 Troponin I < 0.02 ng/mL (0-1.5) 11/03/18 01:40 Total Protein 6.4 g/dL (6.4-8.2) 11/07/18 05:18 Albumin 1.9 g/dL (3.4-5.0) L 11/07/18 05:18 Globulin 4.5 g/dL (2.5-4.5) 11/07/18 05:18 Albumin/Globulin Ratio 0.4 Ratio (1.1-2.1) L 11/07/18 05:18 Specimen Type Random urine 11/03/18 04:43 Urine Color Yellow (YELLOW) 11/03/18 04:43 Urine Appearance Clear (CLEAR) 11/03/18 04:43 Urine pH 5.0 (5.0 - 8.0) 11/03/18 04:43 Ur Specific [place] 1.020 (1.000-1.030) 11/03/18 04:43 Urine Protein 1+ (NEGATIVE) 11/03/18 04:43 Urine Glucose (UA) 4+ (NEGATIVE) 11/03/18 04:43 Urine Ketones 4+ (NEGATIVE) 11/03/18 04:43 Urine Occult Blood Negative (NEGATIVE) 11/03/18 04:43 Urine Nitrite Negative (NEGATIVE) 11/03/18 04:43 Urine Bilirubin Negative (NEGATIVE) 11/03/18 04:43 Urine Urobilinogen Normal (NORMAL) 11/03/18 04:43 Ur Leukocyte Esterase Negative (NEGATIVE) 11/03/18 04:43 Urine RBC None seen /HPF (NONE SEEN) 11/03/18 04:43 Urine WBC None seen /HPF (NONE SEEN) 11/03/18 04:43 Ur Squamous Epith Cells Rare /HPF (NEGATIVE) 11/03/18 04:43 Urine Bacteria Negative /HPF (NEGATIVE) 11/03/18 04:43 Ur Culture Indicated? No/not indicated 11/03/18 04:43 Vancomycin Trough 6.0 ug/mL (15-20) L 11/07/18 13:40 Acetone, Semi-Quant Negative (NEGATIVE) 11/07/18 05:18 Blood Type A POSITIVE 11/04/18 10:39 Antibody Screen Negative 11/04/18 10:39 Crossmatch See Detail 11/04/18 10:39 - Plan (1) DKA (diabetic ketoacidoses) Status: Acute Qualifiers: Diabetes mellitus type: type 1 Plan: INSULIN DRIP, IV FLUIDS MONITOR ABG AND LABS (2) Metabolic acidosis Status: Acute Plan: IV FLUIDS, INSULIN DRIP, MONITOR ABG (3) Pneumonia Status: Acute Qualifiers: Pneumonia type: due to unspecified organism Laterality: right Lung location: lower lobe of lung Qualified Code(s): J18.1 - Lobar pneumonia, uns pecified organism Plan: IV ANTIBIOTICS, RESPIRATORY TX, OBTAIN SPUTUM CULTURE, CONTINUE TO MONITOR (4) Acute dehydration Status: Acute Plan: IV FLUIDS, CONTINUE TO MONITOR (5) Leukocytosis Status: Acute Qualifiers: Leukocytosis type: unspecified Qualified Code(s): D72.829 - Elevated white blood cell count, unspecified Plan: IV ZOSYN, IV VANCOMYCIN, CONTINUE TO MONITOR (6) Anemia Status: Acute Qualifiers: Anemia type: iron deficiency Iron deficiency anemia type: chronic blood loss Qualified Code(s): D50.0 - Iron deficiency anemia secondary to blood loss (chronic) Plan: CONTINUE TO MONITOR
[2018-11-08] MEDS: METHADONE HCL PO PRN ×2 (02:20→19:15)
[2018-11-08] MEDS: MAGNESIUM SULFATE 1 GRAM/100 mL PREMIX 1 GM/100 ML BAG IV PRN ×2 (02:57→03:58)
[2018-11-08] MEDS: PROCALAMINE 3 % 1,000 ML IV SCH (04:04)
--- NOTE | 2018-11-08 05:16 | RAD ---
Chest, 1 view Indication: Dehydration, DKA Comparison: 11/07/2018 Findings: Right jugular CVL and right subclavian approach Port-A-Cath are unchanged. The cardiac silhouette is unremarkable. The lungs are grossly clear. No pleural effusion or pneumothorax. Impression: No significant change from prior. Reported By:
[2018-11-08] MEDS: VANCOMYCIN HCL 1 GM VIAL 1 G in NS 250 ML IV 250 ML IV SCH ×4 (05:32→22:47)
[2018-11-08 05:43] LABS: BASOPHILS % (AUTO) 0.5 % (0.2-1.0); EOSINOPHILS # (AUTO) 0.5 x10^3/uL (0.0-0.2); EOSINOPHILS % (AUTO) 6.5 % (0.9-2.9); HEMATOCRIT 33.8 % (42.0-54.0); HEMOGLOBIN 11.3 g/dL (13.5-18.0); LYMPHOCYTES # (AUTO) 2.4 X10^3/uL (1.3-2.9); MEAN CORPUSCULAR HEMOGLOBIN 28.2 pg (27.0-34.0); MEAN CORPUSCULAR HGB CONC 33.3 g/dL (33.0-35.0); MEAN CORPUSCULAR VOLUME 84.9 fL (80.0-100.0); MEAN PLATELET VOLUME 7.2 fL (7.4-11.0); MONOCYTES # (AUTO) 0.7 x10^3/uL (0.3-0.8); MONOCYTES % (AUTO) 8.2 % (0.0-13.0); NEUTROPHILS # (AUTO) 4.5 x10^3/uL (2.2-4.8); NEUTROPHILS % (AUTO) 55.8 % (42.0-75.0); PLATELET COUNT 274 X10^3/uL (150.0-450.0); RED BLOOD COUNT 3.99 X10^6/uL (4.7-6.0); RED CELL DISTRIBUTION WIDTH 15.3 % (11.6-16.5); WHITE BLOOD COUNT 8.1 X10^3/uL (3.6-10.0)
[2018-11-08 05:57] LABS: ALANINE AMINOTRANSFERASE 12 Units/L (12-78); ALKALINE PHOSPHATASE 96 Units/L (46-116); ASPARTATE AMINO TRANSFERASE 11 Units/L (15-37); BLOOD UREA NITROGEN 6 mg/dL (7-18); CALCIUM 8.4 mg/dL (8.5-10.1); CARBON DIOXIDE 28.7 mmol/L (21-32); CHLORIDE 105 mmol/L (98-107); COR NA(FOR HYPERGLY) 143 mmol/L (136-145); CREATININE 0.58 mg/dL (0.70-1.30); MAGNESIUM 2.5 mg/dL (1.7-2.9); SODIUM 140 mmol/L (136-145); TOTAL PROTEIN 6.5 g/dL (6.4-8.2); eGFR NON BLACK RACES > 60 (>60)
[2018-11-08 06:14] LABS: ABG BASE EXCESS 9.3 mmol/L (-2.0-2.0)
[2018-11-08 06:15] LABS: ABG HCO3 33.5 mmol/L (22-26)
[2018-11-08] MEDS: HumuLIN R SUBCUT PRN ×3 (06:17→21:19)
[2018-11-08] MEDS: ZOSYN VIAL 3.375 GRAMS 3.375 G in NS 100 ML IV + SPIKE MINIBAG* 100 ML IV SCH ×3 (06:21→22:48)
[2018-11-08] MEDS: NS IV SCH ×4 (06:21→20:04)
[2018-11-08] MEDS: POTASSIUM CHLORIDE IV SCH ×4 (06:21→20:04)
[2018-11-08] MEDS: LEVEMIR SC SCH ×2 (10:21→21:15)
[2018-11-08] MEDS: COLACE CAP 100 MG PO SCH ×2 (10:22→21:12)
[2018-11-08] MEDS: MILK OF MAGNESIA PO SCH (10:22)
[2018-11-08] MEDS: PEPCID 20 MG IV PREMIX* 20 MG/50 ML BAG IV SCH ×2 (10:22→21:12)
[2018-11-08] MEDS: MIRALAX POWDER (1 DOSE 17 G) PO SCH (10:22)
[2018-11-08] MEDS: PROTONIX INJ 40 MG VIAL IVP SCH ×2 (10:23→21:13)
[2018-11-08] MEDS ORDERED: DIPRIVAN VIAL ONE (10:24)
[2018-11-08] MEDS: DUONEB 0.5 MG/3 MG NEB SCH ×4 (12:13→20:08)
[2018-11-08] MEDS ORDERED: NS 1000 ML 1,000 ML ONE (12:29)
[2018-11-08] MEDS ORDERED: DIPRIVAN VIAL 20 ML ONE (12:42)
[2018-11-08] MEDS ORDERED: MILK OF MAGNESIA PO PRN (13:29)
[2018-11-08] MEDS ORDERED: PHARMACY COMMENT IV NR (13:30)
[2018-11-08 14:05] LABS: CREATININE 0.52 mg/dL (0.70-1.30); VANCOMYCIN,TROUGH 16.2 ug/mL (15-20)
[2018-11-08] MEDS: LOPRESSOR TAB 25 MG PO SCH ×2 (19:14→21:40)
[2018-11-08] MEDS: SNACK - Diabetic Appropriate PO SCH (19:43)
[2018-11-09] MEDS: PROCALAMINE 3 % 1,000 ML IV SCH (01:05)
[2018-11-09 05:46] LABS: BASOPHILS # (AUTO) 0.1 X10^3/uL (0.0-0.1); BASOPHILS % (AUTO) 0.6 % (0.2-1.0); EOSINOPHILS # (AUTO) 0.3 x10^3/uL (0.0-0.2); HEMATOCRIT 32.2 % (42.0-54.0); HEMOGLOBIN 10.6 g/dL (13.5-18.0); LYMPHOCYTES # (AUTO) 2.5 X10^3/uL (1.3-2.9); LYMPHOCYTES % (AUTO) 25.1 % (21.0-51.0); MEAN CORPUSCULAR HEMOGLOBIN 28.2 pg (27.0-34.0); MEAN CORPUSCULAR VOLUME 85.5 fL (80.0-100.0); MEAN PLATELET VOLUME 8.5 fL (7.4-11.0); MONOCYTES # (AUTO) 0.8 x10^3/uL (0.3-0.8); MONOCYTES % (AUTO) 7.9 % (0.0-13.0); NEUTROPHILS # (AUTO) 6.4 x10^3/uL (2.2-4.8); NEUTROPHILS % (AUTO) 63.4 % (42.0-75.0); PLATELET COUNT 303 X10^3/uL (150.0-450.0); RED BLOOD COUNT 3.77 X10^6/uL (4.7-6.0); RED CELL DISTRIBUTION WIDTH 15.4 % (11.6-16.5); WHITE BLOOD COUNT 10.1 X10^3/uL (3.6-10.0)
[2018-11-09 06:06] LABS: ALANINE AMINOTRANSFERASE 13 Units/L (12-78); ALBUMIN 2.2 g/dL (3.4-5.0); ALKALINE PHOSPHATASE 97 Units/L (46-116); ASPARTATE AMINO TRANSFERASE 11 Units/L (15-37); BLOOD UREA NITROGEN 8 mg/dL (7-18); CALCIUM 8.2 mg/dL (8.5-10.1); CARBON DIOXIDE 27.7 mmol/L (21-32); CHLORIDE 101 mmol/L (98-107); COR CA(FOR HYPOALB) 9.6 mg/dL (8.5-10.1); COR NA(FOR HYPERGLY) 140 mmol/L (136-145); CREATININE 0.58 mg/dL (0.70-1.30); SODIUM 136 mmol/L (136-145); TOTAL PROTEIN 6.7 g/dL (6.4-8.2); eGFR NON BLACK RACES > 60 (>60)
--- NOTE | 2018-11-09 06:10 | RAD ---
HISTORY: Shortness of breath Study: Chest AP portable Comparison: 11/08/2018 Findings: There is a right IJ line with its tip in the right atrium. There is a right-sided port with its tip near the cavoatrial junction. The heart is within normal limits in size. The ariadna are normal. The lung reina are clear. No pleural effusions are identified. The bony thorax is unremarkable. IMPRESSION: Lungs clear Reported By:
[2018-11-09] MEDS: ZOSYN VIAL 3.375 GRAMS 3.375 G in NS 100 ML IV + SPIKE MINIBAG* 100 ML IV SCH ×3 (06:12→21:11)
[2018-11-09] MEDS: METHADONE HCL PO PRN ×2 (06:13→20:35)
[2018-11-09] MEDS: HumuLIN R SUBCUT PRN ×3 (06:15→20:40)
[2018-11-09] MEDS: VANCOMYCIN HCL 1 GM VIAL 1 G in NS 250 ML IV 250 ML IV SCH ×3 (06:28→21:11)
[2018-11-09] MEDS ORDERED: ATIVAN INJ 2 MG VIAL IVP PRN (07:17)
[2018-11-09 07:58] LABS: CKMB % 4.4 % (<4); CREATINE KINASE 23 Units/L (39-308); CREATINE KINASE MB < 1.0 ng/mL (0-4.0); TROPONIN I < 0.02 ng/mL (0-1.5)
[2018-11-09] MEDS: DUONEB 0.5 MG/3 MG NEB SCH ×3 (08:32→21:00)
[2018-11-09] MEDS: PEPCID 20 MG IV PREMIX* 20 MG/50 ML BAG IV SCH ×2 (08:51→20:21)
[2018-11-09] MEDS: LOPRESSOR TAB 25 MG PO SCH ×2 (08:52→20:21)
[2018-11-09] MEDS: COLACE CAP 100 MG PO SCH ×2 (08:52→20:21)
[2018-11-09] MEDS: LEVEMIR SC SCH ×2 (08:52→20:22)
[2018-11-09] MEDS: MIRALAX POWDER (1 DOSE 17 G) PO SCH (08:56)
[2018-11-09] MEDS: POTASSIUM CHLORIDE IV SCH ×4 (09:32→20:34)
[2018-11-09] MEDS: NS IV SCH ×4 (09:32→20:34)
[2018-11-09] MEDS: DEPAKOTE D.R. TAB PO SCH ×2 (09:44→20:34)
[2018-11-09] MEDS ORDERED: PHARMACY COMMENT IV NR (13:30)
[2018-11-09 14:20] LABS: CREATININE 0.66 mg/dL (0.70-1.30); VANCOMYCIN,TROUGH 15.6 ug/mL (15-20)
[2018-11-09] MEDS: ZESTRIL TAB 10 MG PO SCH (17:47)
--- NOTE | 2018-11-09 19:31 | PCM.PROG ---
Progress Note - Progress Note for Day of Date of Exam: 11/07/18 - Subjective Subjective: WAS ADMITTED FOR DKA, ACUTE DEHYDRATION, LEUKOCYTOSIS, AND METABOLIC ACIDOSIS, AND ANEMIA. HE RECEIVED TWO UNITS OF PACKED RED BLOOD CELLS ON 11/03. TODAY, HE IS ALERT, LYING IN BED ON MORNING ROUNDS. HE CONTINUES WITH WEAKNESS AND ABDOMINAL PAIN THIS MORNING. ON EXAMINATION, HEART IS REGULAR IN RATE AND RHYTHM. BILATERAL LUNGS ARE NOTED WITH DIMINISHED LUNG SOUNDS THROUGHOUT. ABDOMEN IS ROUND, SOFT, AND NOTED WITH DIFFUSE TENDERNESS. HYPOACTIVE BOWEL SOUNDS ARE NOTED. HIS VITALS THIS MORNING ARE 98.7-87-22-98%-126/85. LABS WERE OBTAINED. ABNORMAL LAB VALUES INCLUDE THE FOLLOWING: RBC 3.83, HGB 10.7, HCT 31.6, POTASSIUM 3.0, CREATININE 0.55, GLUCOSE 165, CALCIUM 8.2, MAGNESIUM 1.5, ALUBMIN 1.9. TODAYS ABG REVEALED: PH 7.530, PC02 40.0, P02 75.0, HC03 33.4, 02 SATURATION 96.0, BASE EXCESS 9.8. BLOOD AND SPUTUM PENDING. WE OBTAINED A CHEST XRAY THIS MORNING. IT REVEALED: LUNGS NOW CLEAR. HE IS CURRENTLY RECEIVING NORMAL SALINE WITH 40MEQ KCL AND PROCALAMINE. INSULIN DRIP HAS BEEN DISCONTINUED. CONSULTED WITH PATIENT AND PLANS FOR AN EGD ON TOMORROW IF HE REMAINS STABLE. TODAY, WE WILL RESUME HIS LEVEMIR, BUT START BACK AT 25 UNITS AT HS. OTHERWISE, WE WILL FOLLOW UP WITH AM LABS AND ABG AND CONTINUE TO MONITOR. - Past Medical Family Social History Past Med/Fam/Surg Hx: No changes since H&P Allergies: Allergies No Known Drug Allergies Allergy (Verified 11/03/18 01:58) - Review of Systems ROS: No change since H&P - Vital Signs and I&O's Vital Signs: Temperature 100.2 F Pulse Rate [Apical] 77 Pulse Rate [Left] 134 Pulse Rate 82 Respiratory Rate 12 Blood Pressure [Left Arm] 143/90 Blood Pressure [Right Arm] 132/81 Blood Pressure 145/96 O2 Sat by Pulse Oximetry 100 Intake and Output: Intake & Output 11/07/18 11/08/18 11/09/18 11/10/18 11:59 11:59 11:59 11:59 Intake Total 4489 / 4489 4841 / 4841 5077 / 5077 1662 / 1662 Output Total 4100 / 4100 5425 / 5425 4875 / 4875 1850 / 1850 Balance 389 / 389 -584 / -584 202 / 202 -188 / -188 - Physical Exam Oriented: Normal Eyes: Normal Ear: Normal Nose: Normal Throat: Normal Cardiovascular: Normal : Normal Auscultation: Bowel Sounds: Normal Palpation: Normal Tenderness: Diffuse, Mild. negative: Rebound, Guarding, Rigidity Skin: Decreased Turgur Musculoskeletal: Normal Psychiatric: Normal Mood Description: Calm, Flat Affect: Flat, Normal Speech Pattern: Clear, Appropriate - Laboratory and Diagnostics Result Diagrams: 11/09/18 04:08 11/09/18 13:45 Labs: 11/03/18 06:30 Blood Blood Culture - Final 11/03/18 06:20 Blood Blood Culture - Final 11/05/18 11:59 Sputum - Expectorated Sputum Sputum Culture - Final 11/05/18 11:59 Sputum - Expectorated Sputum - Final Laboratory WBC 10.1 X10^3/uL (3.6-10.0) H 11/09/18 04:08 RBC 3.77 X10^6/uL (4.7-6.0) L 11/09/18 04:08 Hgb 10.6 g/dL (13.5-18.0) L 11/09/18 04:08 Hct 32.2 % (42.0-54.0) L 11/09/18 04:08 MCV 85.5 fL (80.0-100.0) 11/09/18 04:08 MCH 28.2 pg (27.0-34.0) 11/09/18 04:08 MCHC 33.0 g/dL (33.0-35.0) 11/09/18 04:08 RDW 15.4 % (11.6-16.5) 11/09/18 04:08 Plt Count 303 X10^3/uL (150.0-450.0) 11/09/18 04:08 Plt Count Comment Adequate (ADEQUATE) 11/04/18 07:04 MPV 8.5 fL (7.4-11.0) 11/09/18 04:08 Neut % (Auto) 63.4 % (42.0-75.0) 11/09/18 04:08 Lymph % (Auto) 25.1 % (21.0-51.0) 11/09/18 04:08 [place] % (Auto) 7.9 % (0.0-13.0) 11/09/18 04:08 Eos % (Auto) 3.0 % (0.9-2.9) H 11/09/18 04:08 Baso % (Auto) 0.6 % (0.2-1.0) 11/09/18 04:08 Neut # (Auto) 6.4 x10^3/uL (2.2-4.8) H 11/09/18 04:08 Lymph # (Auto) 2.5 X10^3/uL (1.3-2.9) 11/09/18 04:08 [place] # (Auto) 0.8 x10^3/uL (0.3-0.8) 11/09/18 04:08 Eos # (Auto) 0.3 x10^3/uL (0.0-0.2) H 11/09/18 04:08 Baso # (Auto) 0.1 X10^3/uL (0.0-0.1) 11/09/18 04:08 Absolute Nucleated RBC 0.1 /100WBC 11/09/18 04:08 Plt Morphology Comment Normal (NORMAL) 11/04/18 07:04 RBC Morphology Abnormal (NORMAL) 11/04/18 07:04 Anisocytosis Slight A 11/04/18 07:04 INR Target Range - 11/03/18 01:40 INR 1.35 (0.8-1.3) H 11/03/18 01:40 APTT 28.3 SECONDS (22.9-36.5) 11/03/18 01:40 PTT Comment - 11/03/18 01:40 Sample Site Rbra 11/08/18 05:57 ABG pH 7.500 (7.35-7.45) H 11/08/18 05:57 ABG pCO2 43.0 mmHg (35.0-45.0) 11/08/18 05:57 ABG pO2 73.0 mmHg (80.0-100.0) L 11/08/18 05:57 ABG HCO3 33.5 mmol/L (22-26) H* 11/08/18 05:57 ABG O2 Saturation 96.0 % (90-100) 11/08/18 05:57 ABG Base Excess 9.3 mmol/L (-2.0-2.0) H 11/08/18 05:57 Geoff Test Na 11/08/18 05:57 A-a Gradient 23.0 mmHg 11/08/18 05:57 FiO2 21.0 11/08/18 05:57 Blood Gas Comments Marva abg well-mtf 11/08/18 05:57 Sodium 136 mmol/L (136-145) 11/09/18 04:08 Corrected Sodium 140 mmol/L (136-145) 11/09/18 04:08 Potassium 3.8 mmol/L (3.5-5.1) 11/09/18 04:08 Chloride 101 mmol/L (98-107) 11/09/18 04:08 Carbon Dioxide 27.7 mmol/L (21-32) 11/09/18 04:08 BUN 8 mg/dL (7-18) 11/09/18 04:08 Creatinine 0.66 mg/dL (0.70-1.30) L 11/09/18 13:45 Est GFR (MDRD) Af Amer > 60 (>60) 11/09/18 04:08 Est GFR (MDRD) Non-Af > 60 (>60) 11/09/18 04:08 Glucose 256 mg/dL (65-99) H 11/09/18 04:08 POC Glucose (mg/dL) 87 mg/dL (65-99) 11/09/18 16:41 Lactic Acid 2.9 mmol/L (0.4-2.0) H 11/03/18 06:20 Calcium 8.2 mg/dL (8.5-10.1) L 11/09/18 04:08 Corrected Calcium 9.6 mg/dL (8.5-10.1) 11/09/18 04:08 Magnesium 2.5 mg/dL (1.7-2.9) 11/08/18 05:15 Total Bilirubin 0.30 mg/dL (0.2-1.0) 11/09/18 04:08 AST 11 Units/L (15-37) L 11/09/18 04:08 ALT 13 Units/L (12-78) 11/09/18 04:08 Alkaline Phosphatase 97 Units/L (46-116) 11/09/18 04:08 Creatine Kinase 23 Units/L (39-308) L 11/09/18 07:23 CK-MB (CK-2) < 1.0 ng/mL (0-4.0) 11/09/18 07:23 CK/CKMB % Calc 4.4 % (<4) 11/09/18 07:23 Troponin I < 0.02 ng/mL (0-1.5) 11/09/18 07:23 Total Protein 6.7 g/dL (6.4-8.2) 11/09/18 04:08 Albumin 2.2 g/dL (3.4-5.0) L 11/09/18 04:08 Globulin 4.5 g/dL (2.5-4.5) 11/09/18 04:08 Albumin/Globulin Ratio 0.5 Ratio (1.1-2.1) L 11/09/18 04:08 Specimen Type Random urine 11/03/18 04:43 Urine Color Yellow (YELLOW) 11/03/18 04:43 Urine Appearance Clear (CLEAR) 11/03/18 04:43 Urine pH 5.0 (5.0 - 8.0) 11/03/18 04:43 Ur Specific [place] 1.020 (1.000-1.030) 11/03/18 04:43 Urine Protein 1+ (NEGATIVE) 11/03/18 04:43 Urine Glucose (UA) 4+ (NEGATIVE) 11/03/18 04:43 Urine Ketones 4+ (NEGATIVE) 11/03/18 04:43 Urine Occult Blood Negative (NEGATIVE) 11/03/18 04:43 Urine Nitrite Negative (NEGATIVE) 11/03/18 04:43 Urine Bilirubin Negative (NEGATIVE) 11/03/18 04:43 Urine Urobilinogen Normal (NORMAL) 11/03/18 04:43 Ur Leukocyte Esterase Negative (NEGATIVE) 11/03/18 04:43 Urine RBC None seen /HPF (NONE SEEN) 11/03/18 04:43 Urine WBC None seen /HPF (NONE SEEN) 11/03/18 04:43 Ur Squamous Epith Cells Rare /HPF (NEGATIVE) 11/03/18 04:43 Urine Bacteria Negative /HPF (NEGATIVE) 11/03/18 04:43 Ur Culture Indicated? No/not indicated 11/03/18 04:43 Stool Description 20 g. black/unformed 11/08/18 02:55 Stl Occult Blood (IFOB) Negative (NEGATIVE) 11/08/18 02:55 Vancomycin Trough 15.6 ug/mL (15-20) 11/09/18 13:45 Acetone, Semi-Quant Negative (NEGATIVE) 11/09/18 04:08 Tissue Pathology To follow 11/08/18 12:57 Blood Type A POSITIVE 11/04/18 10:39 Antibody Screen Negative 11/04/18 10:39 Crossmatch See Detail 11/04/18 10:39 - Plan (1) DKA (diabetic ketoacidoses) Status: Acute Qualifiers: Diabetes mellitus type: type 1 Plan: HUMULIN R SLIDING SCALE, LEVEMIR 25 UNITS AT HS, IV FLUIDS, MONITOR ABG AND LABS (2) Metabolic acidosis Status: Acute Plan: IV FLUIDS, MONITOR ABG (3) Pneumonia Status: Acute Qualifiers: Pneumonia type: due to unspecified organism Laterality: right Lung locat ion: lower lobe of lung Qualified Code(s): J18.1 - Lobar pneumonia, unspecified organism Plan: IV ANTIBIOTICS, RESPIRATORY TX, OBTAIN SPUTUM CULTURE, CONTINUE TO MONITOR (4) Acute dehydration Status: Acute Plan: IV FLUIDS, CONTINUE TO MONITOR (5) Leukocytosis Status: Acute Qualifiers: Leukocytosis type: unspecified Qualified Code(s): D72.829 - Elevated white blood cell count, unspecified Plan: IV ZOSYN, IV VANCOMYCIN, CONTINUE TO MONITOR (6) Anemia Status: Acute Qualifiers: Anemia type: iron deficiency Iron deficiency anemia type: chronic blood loss Qualified Code(s): D50.0 - Iron deficiency anemia secondary to blood loss (chronic) Plan: CONTINUE TO MONITOR
[2018-11-09] MEDS: SNACK - Diabetic Appropriate PO SCH (19:47)
[2018-11-09] MEDS: PROTONIX TAB 40 MG PO SCH (20:21)
[2018-11-10] MEDS: NS IV SCH ×4 (00:39→15:48)
[2018-11-10] MEDS: POTASSIUM CHLORIDE IV SCH ×4 (00:39→15:48)
[2018-11-10] MEDS: PROCALAMINE 3 % 1,000 ML IV SCH (00:40)
[2018-11-10] MEDS: METHADONE HCL PO PRN ×2 (02:54→11:42)
[2018-11-10 05:21] LABS: BASOPHILS # (AUTO) 0.1 X10^3/uL (0.0-0.1); BASOPHILS % (AUTO) 0.6 % (0.2-1.0); EOSINOPHILS # (AUTO) 0.1 x10^3/uL (0.0-0.2); HEMATOCRIT 34.8 % (42.0-54.0); HEMOGLOBIN 11.3 g/dL (13.5-18.0); LYMPHOCYTES # (AUTO) 3.4 X10^3/uL (1.3-2.9); LYMPHOCYTES % (AUTO) 25.7 % (21.0-51.0); MEAN CORPUSCULAR HEMOGLOBIN 27.9 pg (27.0-34.0); MEAN CORPUSCULAR HGB CONC 32.4 g/dL (33.0-35.0); MEAN CORPUSCULAR VOLUME 85.9 fL (80.0-100.0); MEAN PLATELET VOLUME 8.6 fL (7.4-11.0); MONOCYTES # (AUTO) 1.1 x10^3/uL (0.3-0.8); MONOCYTES % (AUTO) 8.5 % (0.0-13.0); NEUTROPHILS # (AUTO) 8.5 x10^3/uL (2.2-4.8); NEUTROPHILS % (AUTO) 64.2 % (42.0-75.0); PLATELET COUNT 344 X10^3/uL (150.0-450.0); RED BLOOD COUNT 4.05 X10^6/uL (4.7-6.0); RED CELL DISTRIBUTION WIDTH 15.8 % (11.6-16.5); WHITE BLOOD COUNT 13.3 X10^3/uL (3.6-10.0)
[2018-11-10 05:29] LABS: ALANINE AMINOTRANSFERASE 14 Units/L (12-78); ALBUMIN 2.3 g/dL (3.4-5.0); ALKALINE PHOSPHATASE 98 Units/L (46-116); ASPARTATE AMINO TRANSFERASE 18 Units/L (15-37); BLOOD UREA NITROGEN 6 mg/dL (7-18); CALCIUM 9.1 mg/dL (8.5-10.1); CARBON DIOXIDE 25.8 mmol/L (21-32); CHLORIDE 101 mmol/L (98-107); COR CA(FOR HYPOALB) 10.5 mg/dL (8.5-10.1); COR NA(FOR HYPERGLY) 141 mmol/L (136-145); CREATININE 0.69 mg/dL (0.70-1.30); SODIUM 137 mmol/L (136-145); TOTAL PROTEIN 7.3 g/dL (6.4-8.2); eGFR NON BLACK RACES > 60 (>60)
[2018-11-10] MEDS: HumuLIN R SUBCUT PRN ×3 (05:32→17:39)
[2018-11-10] MEDS: VANCOMYCIN HCL 1 GM VIAL 1 G in NS 250 ML IV 250 ML IV SCH ×2 (05:33→15:49)
[2018-11-10] MEDS: ZOSYN VIAL 3.375 GRAMS 3.375 G in NS 100 ML IV + SPIKE MINIBAG* 100 ML IV SCH ×2 (05:33→15:00)
[2018-11-10] MEDS: COLACE CAP 100 MG PO SCH (08:00)
[2018-11-10] MEDS: LOPRESSOR TAB 25 MG PO SCH (08:00)
[2018-11-10] MEDS: PROTONIX TAB 40 MG PO SCH (08:01)
[2018-11-10] MEDS: MIRALAX POWDER (1 DOSE 17 G) PO SCH (08:02)
[2018-11-10] MEDS: DEPAKOTE D.R. TAB PO SCH (08:02)
[2018-11-10] MEDS: ZESTRIL TAB 10 MG PO SCH (08:03)
[2018-11-10] MEDS: LEVEMIR SC SCH (08:04)
[2018-11-10] MEDS: PEPCID 20 MG IV PREMIX* 20 MG/50 ML BAG IV SCH (08:09)
[2018-11-10] MEDS: DUONEB 0.5 MG/3 MG NEB SCH ×4 (09:51→20:04)
[2018-11-10 15:14] LABS: CREATININE 0.59 mg/dL (0.70-1.30); VANCOMYCIN,TROUGH 13.4 ug/mL (15-20)
--- NOTE | 2018-11-10 15:50 | PCM.PROG ---
Progress Note - Progress Note for Day of Date of Exam: 11/08/18 - Subjective Subjective: WAS ADMITTED FOR DKA, ACUTE DEHYDRATION, LEUKOCYTOSIS, AND METABOLIC ACIDOSIS, AND ANEMIA. HE RECEIVED TWO UNITS OF PACKED RED BLOOD CELLS ON 11/03. HIS HEMOGLOBIN HAS REMAINED STABLE SINCE. INSULIN DRIP HAS BEEN DISCONTINUED AND SC INSULIN RESTARTED. TODAY, HE IS ALERT, LYING IN BED ON MORNING ROUNDS. HE CONTINUES WITH WEAKNESS AND ABDOMINAL PAIN THIS MORNING, BUT REPORTS SLIGHT IMPROVEMENT. ON EXAMINATION, HEART IS REGULAR IN RATE AND RHYTHM. BILATERAL LUNGS ARE NOTED WITH DIMINISHED LUNG SOUNDS THROUGHOUT. ABDOMEN IS ROUND, SOFT, AND NOTED WITH DIFFUSE TENDERNESS. HYPOACTIVE BOWEL SOUNDS ARE NOTED. HIS VITALS THIS MORNING ARE 98.7-86-21-97%-136/94. LABS WERE OBTAINED. ABNORMAL LAB VALUES INCLUDE THE FOLLOWING: RBC 3.99, HGB 11.3, HCT 33.8, POTASSIUM 3.4, BUN 6, CREATININE 0.58, GLUCOSE 205, CALCIUM 8.4, AST 11, ALBUMIN 2.0. TODAYS ABG REVEALED: PH 7.500, PC02 43.0, P02 73.0, HC03 33.5, 02 SATURATION 96.0, BASE EXCESS 9.3. BLOOD AND SPUTUM PENDING. WE OBTAINED A CHEST XRAY THIS MORNING. IT REVEALED: Right jugular CVL and right subclavian approach Port-A-Cath are unchanged. The cardiac silhouette is unremarkable. The lungs are grossly clear. No pleural effusion or pneumothorax. PERFORMED AN EGD YESTERDAY. IT REVEALED: Erosive distal esophagitis and moderate erosive gastritis. HE IS CURRENTLY RECEIVING NORMAL SALINE WITH 40MEQ KCL AND PROCALAMINE. WE WILL RESUME HIS LEVEMIR, BUT CHANGE TO 10MG SC BID. OTHERWISE, WE WILL CONTINUE WITH CURRENT PLAN OF CARE TODAY. WE WILL FOLLOW UP WITH AM LABS AND CONTINUE TO MONITOR. - Past Medical Family Social History Past Med/Fam/Surg Hx: No changes since H&P Allergies: Allergies No Known Drug Allergies Allergy (Verified 11/03/18 01:58) - Review of Systems ROS: No change since H&P - Vital Signs and I&O's Vital Signs: Temperature 99.5 F Pulse Rate [Apical] 77 Pulse Rate [Left] 134 Pulse Rate 84 Respiratory Rate 13 Blood Pressure [Left Arm] 143/90 Blood Pressure [Right Arm] 132/81 Blood Pressure 117/82 O2 Sat by Pulse Oximetry 98 Intake and Output: Intake & Output 11/08/18 11/09/18 11/10/18 11/11/18 11:59 11:59 11:59 11:59 Intake Total 4841 / 4841 5077 / 5077 4410 / 4410 2294 / 2294 Output Total 5425 / 5425 4875 / 4875 5760 / 5760 2125 / 2125 Balance -584 / -584 202 / 202 -1350 / -1350 169 / 169 - Physical Exam Oriented: Normal Eyes: Normal Ear: Normal Nose: Normal Throat: Normal Cardiovascular: Normal : Normal Auscultation: Bowel Sounds: Normal Palpation: Normal Tenderness: Diffuse, Mild. negative: Rebound, Guarding, Rigidity Skin: Decreased Turgur Musculoskeletal: Normal Psychiatric: Normal Mood Description: Calm, Flat Affect: Flat, Normal Speech Pattern: Clear, Appropriate - Laboratory and Diagnostics Result Diagrams: 11/10/18 04:07 11/10/18 14:38 Labs: 11/03/18 06:30 Blood Blood Culture - Final 11/03/18 06:20 Blood Blood Culture - Final 11/05/18 11:59 Sputum - Expectorated Sputum Sputum Culture - Final 11/05/18 11:59 Sputum - Expectorated Sputum - Final Laboratory WBC 13.3 X10^3/uL (3.6-10.0) H 11/10/18 04:07 RBC 4.05 X10^6/uL (4.7-6.0) L 11/10/18 04:07 Hgb 11.3 g/dL (13.5-18.0) L 11/10/18 04:07 Hct 34.8 % (42.0-54.0) L 11/10/18 04:07 MCV 85.9 fL (80.0-100.0) 11/10/18 04:07 MCH 27.9 pg (27.0-34.0) 11/10/18 04:07 MCHC 32.4 g/dL (33.0-35.0) L 11/10/18 04:07 RDW 15.8 % (11.6-16.5) 11/10/18 04:07 Plt Count 344 X10^3/uL (150.0-450.0) 11/10/18 04:07 Plt Count Comment Adequate (ADEQUATE) 11/04/18 07:04 MPV 8.6 fL (7.4-11.0) 11/10/18 04:07 Neut % (Auto) 64.2 % (42.0-75.0) 11/10/18 04:07 Lymph % (Auto) 25.7 % (21.0-51.0) 11/10/18 04:07 Cross % (Auto) 8.5 % (0.0-13.0) 11/10/18 04:07 Eos % (Auto) 1.0 % (0.9-2.9) 11/10/18 04:07 Baso % (Auto) 0.6 % (0.2-1.0) 11/10/18 04:07 Neut # (Auto) 8.5 x10^3/uL (2.2-4.8) H 11/10/18 04:07 Lymph # (Auto) 3.4 X10^3/uL (1.3-2.9) H 11/10/18 04:07 Cross # (Auto) 1.1 x10^3/uL (0.3-0.8) H 11/10/18 04:07 Eos # (Auto) 0.1 x10^3/uL (0.0-0.2) 11/10/18 04:07 Baso # (Auto) 0.1 X10^3/uL (0.0-0.1) 11/10/18 04:07 Absolute Nucleated RBC 0.0 /100WBC 11/10/18 04:07 Plt Morphology Comment Normal (NORMAL) 11/04/18 07:04 RBC Morphology Abnormal (NORMAL) 11/04/18 07:04 Anisocytosis Slight A 11/04/18 07:04 INR Target Range - 11/03/18 01:40 INR 1.35 (0.8-1.3) H 11/03/18 01:40 APTT 28.3 SECONDS (22.9-36.5) 11/03/18 01:40 PTT Comment - 11/03/18 01:40 Sample Site Rbra 11/08/18 05:57 ABG pH 7.500 (7.35-7.45) H 11/08/18 05:57 ABG pCO2 43.0 mmHg (35.0-45.0) 11/08/18 05:57 ABG pO2 73.0 mmHg (80.0-100.0) L 11/08/18 05:57 ABG HCO3 33.5 mmol/L (22-26) H* 11/08/18 05:57 ABG O2 Saturation 96.0 % (90-100) 11/08/18 05:57 ABG Base Excess 9.3 mmol/L (-2.0-2.0) H 11/08/18 05:57 Geoff Test Na 11/08/18 05:57 A-a Gradient 23.0 mmHg 11/08/18 05:57 FiO2 21.0 11/08/18 05:57 Blood Gas Comments Marva abg well-mtf 11/08/18 05:57 Sodium 137 mmol/L (136-145) 11/10/18 04:07 Corrected Sodium 141 mmol/L (136-145) 11/10/18 04:07 Potassium 3.8 mmol/L (3.5-5.1) 11/10/18 04:07 Chloride 101 mmol/L (98-107) 11/10/18 04:07 Carbon Dioxide 25.8 mmol/L (21-32) 11/10/18 04:07 BUN 6 mg/dL (7-18) L 11/10/18 04:07 Creatinine 0.59 mg/dL (0.70-1.30) L 11/10/18 14:38 Est GFR (MDRD) Af Amer > 60 (>60) 11/10/18 04:07 Est GFR (MDRD) Non-Af > 60 (>60) 11/10/18 04:07 Glucose 278 mg/dL (65-99) H 11/10/18 04:07 POC Glucose (mg/dL) 228 mg/dL (65-99) H 11/10/18 11:20 Lactic Acid 2.9 mmol/L (0.4-2.0) H 11/03/18 06:20 Calcium 9.1 mg/dL (8.5-10.1) 11/10/18 04:07 Corrected Calcium 10.5 mg/dL (8.5-10.1) H 11/10/18 04:07 Magnesium 2.5 mg/dL (1.7-2.9) 11/08/18 05:15 Total Bilirubin 0.30 mg/dL (0.2-1.0) 11/10/18 04:07 AST 18 Units/L (15-37) 11/10/18 04:07 ALT 14 Units/L (12-78) 11/10/18 04:07 Alkaline Phosphatase 98 Units/L (46-116) 11/10/18 04:07 Creatine Kinase 23 Units/L (39-308) L 11/09/18 07:23 CK-MB (CK-2) < 1.0 ng/mL (0-4.0) 11/09/18 07:23 CK/CKMB % Calc 4.4 % (<4) 11/09/18 07:23 Troponin I < 0.02 ng/mL (0-1.5) 11/09/18 07:23 Total Protein 7.3 g/dL (6.4-8.2) 11/10/18 04:07 Albumin 2.3 g/dL (3.4-5.0) L 11/10/18 04:07 Globulin 5.0 g/dL (2.5-4.5) H 11/10/18 04:07 Albumin/Globulin Ratio 0.5 Ratio (1.1-2.1) L 11/10/18 04:07 Specimen Type Random urine 11/03/18 04:43 Urine Color Yellow (YELLOW) 11/03/18 04:43 Urine Appearance Clear (CLEAR) 11/03/18 04:43 Urine pH 5.0 (5.0 - 8.0) 11/03/18 04:43 Ur Specific [place] 1.020 (1.000-1.030) 11/03/18 04:43 Urine Protein 1+ (NEGATIVE) 11/03/18 04:43 Urine Glucose (UA) 4+ (NEGATIVE) 11/03/18 04:43 Urine Ketones 4+ (NEGATIVE) 11/03/18 04:43 Urine Occult Blood Negative (NEGATIVE) 11/03/18 04:43 Urine Nitrite Negative (NEGATIVE) 11/03/18 04:43 Urine Bilirubin Negative (NEGATIVE) 11/03/18 04:43 Urine Urobilinogen Normal (NORMAL) 11/03/18 04:43 Ur Leukocyte Esterase Negative (NEGATIVE) 11/03/18 04:43 Urine RBC None seen /HPF (NONE SEEN) 11/03/18 04:43 Urine WBC None seen /HPF (NONE SEEN) 11/03/18 04:43 Ur Squamous Epith Cells Rare /HPF (NEGATIVE) 11/03/18 04:43 Urine Bacteria Negative /HPF (NEGATIVE) 11/03/18 04:43 Ur Culture Indicated? No/not indicated 11/03/18 04:43 Stool Description 20 g. black/unformed 11/08/18 02:55 Stl Occult Blood (IFOB) Negative (NEGATIVE) 11/08/18 02:55 Vancomycin Trough 13.4 ug/mL (15-20) L 11/10/18 14:38 Acetone, Semi-Quant Negative (NEGATIVE) 11/10/18 04:07 Tissue Pathology To follow 11/08/18 12:57 Blood Type A POSITIVE 11/04/18 10:39 Antibody Screen Negative 11/04/18 10:39 Crossmatch See Detail 11/04/18 10:39 - Plan (1) DKA (diabetic ketoacidoses) Status: Acute Qualifiers: Diabetes mellitus type: type 1 Plan: HUMULIN R SLIDING SCALE, LEVEMIR 10 UNITS BID, IV FLUIDS, MONITOR ABG AND LABS (2) Metabolic acidosis Status: Acute Plan: IV FLUIDS, MONITOR ABG (3) Pneumonia Status: Acute Qualifiers: Pneumonia type: due to unspecified organism Laterality: right Lung location: lower lobe of lung Qualified Code(s): J18.1 - Lobar pneumonia, unspecified organism Plan: IV ANTIBIOTICS, RESPIRATORY TX, OBTAIN SPUTUM CULTURE, CONTINUE TO MONITOR (4) Acute dehydration Status: Acute Plan: IV FLUIDS, CONTINUE TO MONITOR (5) Leukocytosis Status: Acute Qualifiers: Leukocytosis type: unspecified Qualified Code(s): D72.829 - Elevated white blood cell count, unspecified Plan: IV ZOSYN, IV VANCOMYCIN, CONTINUE TO MONITOR (6) Anemia Status: Acute Qualifiers: Anemia type: iron deficiency Iron deficiency anemia type: chronic blood loss Qualified Code(s): D50.0 - Iron deficiency anemia secondary to blood loss (chronic) Plan: CONTINUE TO MONITOR
[2018-11-10 21:23] VITALS: BP 107/76
--- NOTE | 2018-11-10 21:49 | PCM.PROG ---
Progress Note - Progress Note for Day of Date of Exam: 11/09/18 - Subjective Subjective: WAS ADMITTED FOR DKA, PNEUMONIA, ACUTE DEHYDRATION, LEUKOCYTOSIS, AND METABOLIC ACIDOSIS, AND ANEMIA. HE RECEIVED TWO UNITS OF PACKED RED BLOOD CELLS ON 11/03. HIS HEMOGLOBIN HAS REMAINED STABLE SINCE. INSULIN DRIP HAS BEEN DISCONTINUED AND SC INSULIN RESTARTED. STAFF REPORTED THAT HE HAD SOME NEW ONSET SEIZURE ACTIVITY TODAY. HE DENIES A HISTORY OF SEIZURES. TODAY, HE IS ALERT, LYING IN BED ON MORNING ROUNDS. HE CONTINUES WITH WEAKNESS AND ABDOMINAL PAIN THIS MORNING, BUT CONTINUES TO REPORT SLIGHT IMPROVEMENT. ON EXAMINATION, HEART IS REGULAR IN RATE AND RHYTHM. BILATERAL LUNGS ARE NOTED WITH DIMINISHED LUNG SOUNDS THROUGHOUT. ABDOMEN IS ROUND, SOFT, AND NOTED WITH DIFFUSE TENDERNESS. HYPOACTIVE BOWEL SOUNDS ARE NOTED. HIS VITALS THIS MORNING ARE 98.3-82-19-99%-152/94. LABS WERE OBTAINED. ABNORMAL LAB VALUES INCLUDE THE FOLLOWING: WBC 10.1, RBC 3.77, HGB 10.6, HCT 32.2, BUN 6, CREATININE 0.69, GLUCOSE 278, ALBUMIN 2.3, GLOBULIN 5.0. BLOOD AND SPUTUM PENDING. WE OBTAINED A CHEST XRAY THIS MORNING. IT REVEALED: LUNGS CLEAR. PERFORMED AN EGD YESTERDAY. IT REVEALED: Erosive distal esophagitis and moderate erosive gastritis. HE IS CURRENTLY RECEIVING NORMAL SALINE WITH 40MEQ KCL AND PROCALAMINE WELL IV ANTIBIOTICS. WE WILL CONTINUE WITH CURRENT PLAN OF CA RE TODAY AND START DEPAKOTE 250MG PO BID. OTHERWISE, WE WILL FOLLOW UP WITH AM LABS AND CONTINUE TO MONITOR. - Past Medical Family Social History Past Med/Fam/Surg Hx: No changes since H&P Allergies: Allergies No Known Drug Allergies Allergy (Verified 11/03/18 01:58) - Review of Systems ROS: No change since H&P - Vital Signs and I&O's Vital Signs: Temperature 97.8 F Pulse Rate [Apical] 77 Pulse Rate [Left] 134 Pulse Rate 99 Respiratory Rate 16 Blood Pressure [Left Arm] 143/90 Blood Pressure [Right Arm] 132/81 Blood Pressure 107/76 O2 Sat by Pulse Oximetry 99 Intake and Output: Intake & Output 11/08/18 11/09/18 11/10/18 11/11/18 11:59 11:59 11:59 11:59 Intake Total 4841 / 4841 5077 / 5077 4410 / 4410 2294 / 2294 Output Total 5425 / 5425 4875 / 4875 5760 / 5760 2125 / 2125 Balance -584 / -584 202 / 202 -1350 / -1350 169 / 169 - Physical Exam Oriented: Normal Eyes: Normal Ear: Normal Nose: Normal Throat: Normal Cardiovascular: Normal : Normal Auscultation: Bowel Sounds: Normal Palpation: Normal Tenderness: Diffuse, Mild. negative: Rebound, Guarding, Rigidity Skin: Decreased Turgur Musculoskeletal: Normal Psychiatric: Normal Mood Description: Calm, Flat Affect: Flat, Normal Speech Pattern: Clear, Appropriate - Laboratory and Diagnostics Result Diagrams: 11/10/18 04:07 11/10/18 14:38 Labs: 11/03/18 06:30 Blood Blood Culture - Final 11/03/18 06:20 Blood Blood Culture - Final 11/05/18 11:59 Sputum - Expectorated Sputum Sputum Culture - Final 11/05/18 11:59 Sputum - Expectorated Sputum - Final Laboratory WBC 13.3 X10^3/uL (3.6-10.0) H 11/10/18 04:07 RBC 4.05 X10^6/uL (4.7-6.0) L 11/10/18 04:07 Hgb 11.3 g/dL (13.5-18.0) L 11/10/18 04:07 Hct 34.8 % (42.0-54.0) L 11/10/18 04:07 MCV 85.9 fL (80.0-100.0) 11/10/18 04:07 MCH 27.9 pg (27.0-34.0) 11/10/18 04:07 MCHC 32.4 g/dL (33.0-35.0) L 11/10/18 04:07 RDW 15.8 % (11.6-16.5) 11/10/18 04:07 Plt Count 344 X10^3/uL (150.0-450.0) 11/10/18 04:07 Plt Count Comment Adequate (ADEQUATE) 11/04/18 07:04 MPV 8.6 fL (7.4-11.0) 11/10/18 04:07 Neut % (Auto) 64.2 % (42.0-75.0) 11/10/18 04:07 Lymph % (Auto) 25.7 % (21.0-51.0) 11/10/18 04:07 [place] % (Auto) 8.5 % (0.0-13.0) 11/10/18 04:07 Eos % (Auto) 1.0 % (0.9-2.9) 11/10/18 04:07 Baso % (Auto) 0.6 % (0.2-1.0) 11/10/18 04:07 Neut # (Auto) 8.5 x10^3/uL (2.2-4.8) H 11/10/18 04:07 Lymph # (Auto) 3.4 X10^3/uL (1.3-2.9) H 11/10/18 04:07 [place] # (Auto) 1.1 x10^3/uL (0.3-0.8) H 11/10/18 04:07 Eos # (Auto) 0.1 x10^3/uL (0.0-0.2) 11/10/18 04:07 Baso # (Auto) 0.1 X10^3/uL (0.0-0.1) 11/10/18 04:07 Absolute Nucleated RBC 0.0 /100WBC 11/10/18 04:07 Plt Morphology Comment Normal (NORMAL) 11/04/18 07:04 RBC Morphology Abnormal (NORMAL) 11/04/18 07:04 Anisocytosis Slight A 11/04/18 07:04 INR Target Range - 11/03/18 01:40 INR 1.35 (0.8-1.3) H 11/03/18 01:40 APTT 28.3 SECONDS (22.9-36.5) 11/03/18 01:40 PTT Comment - 11/03/18 01:40 Sample Site Rbra 11/08/18 05:57 ABG pH 7.500 (7.35-7.45) H 11/08/18 05:57 ABG pCO2 43.0 mmHg (35.0-45.0) 11/08/18 05:57 ABG pO2 73.0 mmHg (80.0-100.0) L 11/08/18 05:57 ABG HCO3 33.5 mmol/L (22-26) H* 11/08/18 05:57 ABG O2 Saturation 96.0 % (90-100) 11/08/18 05:57 ABG Base Excess 9.3 mmol/L (-2.0-2.0) H 11/08/18 05:57 Geoff Test Na 11/08/18 05:57 A-a Gradient 23.0 mmHg 11/08/18 05:57 FiO2 21.0 11/08/18 05:57 Blood Gas Comments Marva abg well-mtf 11/08/18 05:57 Sodium 137 mmol/L (136-145) 11/10/18 04:07 Corrected Sodium 141 mmol/L (136-145) 11/10/18 04:07 Potassium 3.8 mmol/L (3.5-5.1) 11/10/18 04:07 Chloride 101 mmol/L (98-107) 11/10/18 04:07 Carbon Dioxide 25.8 mmol/L (21-32) 11/10/18 04:07 BUN 6 mg/dL (7-18) L 11/10/18 04:07 Creatinine 0.59 mg/dL (0.70-1.30) L 11/10/18 14:38 Est GFR (MDRD) Af Amer > 60 (>60) 11/10/18 04:07 Est GFR (MDRD) Non-Af > 60 (>60) 11/10/18 04:07 Glucose 278 mg/dL (65-99) H 11/10/18 04:07 POC Glucose (mg/dL) 207 mg/dL (65-99) H 11/10/18 16:02 Lactic Acid 2.9 mmol/L (0.4-2.0) H 11/03/18 06:20 Calcium 9.1 mg/dL (8.5-10.1) 11/10/18 04:07 Corrected Calcium 10.5 mg/dL (8.5-10.1) H 11/10/18 04:07 Magnesium 2.5 mg/dL (1.7-2.9) 11/08/18 05:15 Total Bilirubin 0.30 mg/dL (0.2-1.0) 11/10/18 04:07 AST 18 Units/L (15-37) 11/10/18 04:07 ALT 14 Units/L (12-78) 11/10/18 04:07 Alkaline Phosphatase 98 Units/L (46-116) 11/10/18 04:07 Creatine Kinase 23 Units/L (39-308) L 11/09/18 07:23 CK-MB (CK-2) < 1.0 ng/mL (0-4.0) 11/09/18 07:23 CK/CKMB % Calc 4.4 % (<4) 11/09/18 07:23 Troponin I < 0.02 ng/mL (0-1.5) 11/09/18 07:23 Total Protein 7.3 g/dL (6.4-8.2) 11/10/18 04:07 Albumin 2.3 g/dL (3.4-5.0) L 11/10/18 04:07 Globulin 5.0 g/dL (2.5-4.5) H 11/10/18 04:07 Albumin/Globulin Ratio 0.5 Ratio (1.1-2.1) L 11/10/18 04:07 Specimen Type Random urine 11/03/18 04:43 Urine Color Yellow (YELLOW) 11/03/18 04:43 Urine Appearance Clear (CLEAR) 11/03/18 04:43 Urine pH 5.0 (5.0 - 8.0) 11/03/18 04:43 Ur Specific [place] 1.020 (1.000-1.030) 11/03/18 04:43 Urine Protein 1+ (NEGATIVE) 11/03/18 04:43 Urine Glucose (UA) 4+ (NEGATIVE) 11/03/18 04:43 Urine Ketones 4+ (NEGATIVE) 11/03/18 04:43 Urine Occult Blood Negative (NEGATIVE) 11/03/18 04:43 Urine Nitrite Negative (NEGATIVE) 11/03/18 04:43 Urine Bilirubin Negative (NEGATIVE) 11/03/18 04:43 Urine Urobilinogen Normal (NORMAL) 11/03/18 04:43 Ur Leukocyte Esterase Negative (NEGATIVE) 11/03/18 04:43 Urine RBC None seen /HPF (NONE SEEN) 11/03/18 04:43 Urine WBC None seen /HPF (NONE SEEN) 11/03/18 04:43 Ur Squamous Epith Cells Rare /HPF (NEGATIVE) 11/03/18 04:43 Urine Bacteria Negative /HPF (NEGATIVE) 11/03/18 04:43 Ur Culture Indicated? No/not indicated 11/03/18 04:43 Stool Description 20 g. black/unformed 11/08/18 02:55 Stl Occult Blood (IFOB) Negative (NEGATIVE) 11/08/18 02:55 Vancomycin Trough 13.4 ug/mL (15-20) L 11/10/18 14:38 Acetone, Semi-Quant Negative (NEGATIVE) 11/10/18 04:07 Tissue Pathology To follow 11/08/18 12:57 Blood Type A POSITIVE 11/04/18 10:39 Antibody Screen Negative 11/04/18 10:39 Crossmatch See Detail 11/04/18 10:39 - Plan (1) DKA (diabetic ketoacidoses) Status: Acute Qualifiers: Diabetes mellitus type: type 1 Plan: HUMULIN R SLIDING SCALE, LEVEMIR 10 UNITS BID, IV FLUIDS, MONITOR ABG AND LABS (2) Metabolic acidosis Status: Acute Plan: IV FLUIDS, MONITOR ABG (3) Pneumonia Status: Acute Qualifiers: Pneumonia type: due to unspecified organism Laterality: right Lung location: lower lobe of lung Qualified Code(s): J18.1 - Lobar pneumonia, unspecified organism Plan: IV ANTIBIOTICS, RESPIRATORY TX, OBTAIN SPUTUM CULTURE, CONTINUE TO MONITOR (4) Acute dehydration Status: Acute Plan: IV FLUIDS, CONTINUE TO MONITOR (5) Leukocytosis Status: Acute Qualifiers: Leukocytosis type: unspecified Qualified Code(s): D72.829 - Elevated white blood cell count, unspecified Plan: IV ZOSYN, IV VANCOMYCIN, CONTINUE TO MONITOR (6) Anemia Status: Acute Qualifiers: Anemia type: iron deficiency Iron deficiency anemia type: chronic blood loss Qualified Code(s): D50.0 - Iron deficiency anemia secondary to blood loss (chronic) Plan: CONTINUE TO MONITOR (7) New onset seizure Status: Acute Plan: DEPAKOTE 250MG PO BID
[2018-11-11] MEDS ORDERED: PHARMACY COMMENT IV NR (13:30)
== END 2018-11-10 21:50 | disposition home or self-care (01) | DRG 637 ==
LOC: ER 01:06 → ICU 05:49
PROVIDERS: ADMIT Internal Medicine; ATTEND Internal Medicine
DX: K29.60 Other gastritis without bleeding; E86.0 Dehydration; D72.828 Other elevated white blood cell count; G40.89 Other seizures; D50.0 Iron deficiency anemia secondary to blood loss (chronic); I87.2 Venous insufficiency (chronic) (peripheral); R53.1 Weakness; E10.10 Type 1 diabetes mellitus with ketoacidosis without coma; R10.13 Epigastric pain; R13.11 Dysphagia, oral phase; K20.8 Other esophagitis; R26.89 Other abnormalities of gait and mobility; K59.09 Other constipation; J18.8 Other pneumonia, unspecified organism
CPT/HCPCS: 36415; 36430; 36556; 36600; 71010; 71045; 74000; 74018; 80048; 80053; 80202; 81001; 82009; 82270; 82550; 82553; 82565; 82803; 82947; 83605; 83735; 84132; 84484; 85014; 85018; 85025; 85610; 85730; 86850; 86900; 86901; 86922; 87040; 87070; 87205; 88305; 88342; 93005; 94640; 94760; 96365; 96367; 96374; 96375; 97162; 97165; 99285; A4222; B5200; C9113; P9016; S0028; S0109; J0696; J0713; J1200; J1815; J2405; J2543; J2704; J3370; J3475; J3480; J3490; J7030; J7050; J7620

== ENCOUNTER 2018-12-16 06:04 | Inpatient (IN) ==
[2018-12-16] MEDS ORDERED: NS 1000 ML 1,000 ML ONE ×2 (06:26→09:43)
[2018-12-16 06:36] VITALS: BMI 18.2
[2018-12-16] MEDS ORDERED: ZOFRAN INJ 4 MG VIAL IV ONE (06:49)
[2018-12-16 06:50] LABS: BASOPHILS # (AUTO) 0.1 X10^3/uL (0.0-0.1); BASOPHILS % (AUTO) 0.3 % (0.2-1.0); EOSINOPHILS % (AUTO) 0.1 % (0.9-2.9); HEMATOCRIT 41.4 % (42.0-54.0); HEMOGLOBIN 13.1 g/dL (13.5-18.0); LYMPHOCYTES # (AUTO) 3.8 X10^3/uL (1.3-2.9); LYMPHOCYTES % (AUTO) 16.3 % (21.0-51.0); MEAN CORPUSCULAR HEMOGLOBIN 27.6 pg (27.0-34.0); MEAN CORPUSCULAR HGB CONC 31.5 g/dL (33.0-35.0); MEAN CORPUSCULAR VOLUME 87.6 fL (80.0-100.0); MONOCYTES % (AUTO) 4.3 % (0.0-13.0); NEUTROPHILS # (AUTO) 18.2 x10^3/uL (2.2-4.8); PLATELET COUNT 283 X10^3/uL (150.0-450.0); RED BLOOD COUNT 4.73 X10^6/uL (4.7-6.0); RED CELL DISTRIBUTION WIDTH 16.3 % (11.6-16.5); WHITE BLOOD COUNT 23.1 X10^3/uL (3.6-10.0)
[2018-12-16] MEDS ORDERED: NS 1000 ML 1,000 ML IV ONE (06:52)
--- NOTE | 2018-12-16 06:58 | DR.HYPOGLY ---
HPI - Time Seen Time seen: 06:45 - PCP Primary Care Physician: KRYS - HPI Comment HPI Comment: Most of hx obtained from chart as pt is actively throwing up but says he's been sick all day with n/v; no diarrhea, cough, fever, chills, wheezing or sob. - Complaint Chief Complaint Doctors Comments: "I'm so sick". Chief Complaint:: EMS CALLED OUT TO PTS HOUSE, MOTHER STATES HE HAS BEEN SICK ALL DAY, PT COMPLAINTS OF BEING WEAK STATES "DKA" Self Treatment fo Chief Complaint: N/A - Source History Provided: Patient - Mode of Arrival Mode of Arrival: EMS - Timing Onset of Chief Complaint: 12/15/18 PMH - PMH Past Medical History: Yes Past Medical History: Diabetes Past Surgical History: Yes Surgical History: Other Past Surgical History Comment: PAC RIGHT CHEST WALL - Family History History of Family Medical Conditions: Yes Family Medical History: Diabetes Mellitus, Sudden Cardiac , Hypertension - Social History Does patient currently use any type of tobacco product: Yes Have you used tobacco products in the last 12 months: Yes Type of Tobacco Use: Cigarettes Does any household member use tobacco: No Alcohol Use: None Do you use any recreational Drugs:: No Lives With: Family Lives Where: Home - infectious screening In the last 2 months have you had wt loss of >10#?: NO Have you had fever, night sweats or hemotysis?: No Have you traveled outside the country in the last 6 months?: No Isolation: Standard ROS - Review of Systems Constitutional: Malaise, Weakness, Fatigue, Loss of Appetite Eyes: No Symptoms Reported ENTM: No Symptoms Reported Respiratoy: No Symptoms Reported Cardiovascular: No Symptoms Reported Gastrointestinal/Abdominal: See HPI, Nausea, Vomiting Genitourinary: No Symptoms Reported Neurological: No Symptoms Reported Musculoskeletal: No Symptoms Reported Integumentary: No Symptoms Reported Hematologic/Lymphatic: No Symptoms Reported Endocrine: No Symptoms Reported Psychiatric: No Symptoms Reported PE - General Limitations: No Limitations General Appearance: Alert, Cachectic, Other (cachetic, sallow, projectile vomiting) - Eyes Eye exam: Normal Appearance, PERRL - ENT ENT Exam: Normal Exam - Neck Neck Exam: Normal Inspection, Full ROM - Chest Chest Inspection: Normal Inspection, Symmetric Chest Wall Rise - Respiratory Respiratory Exam: Normal Lung Sounds Bilat Respiratory Exam: Bilateral Clear to Auscultation - Cardiovascular Cardiovascular Exam: Normal Rhythm, Tachycardia - Abdominal Exam Abdominal Exam: Normal Inspection, Normal Bowel Sounds, Soft - Extremities Extremities Exam: Normal Inspection - Back Back Exam: Normal Inspection - Neurologic Neurological Exam: Alert, Oriented X3 - Psychiatric Psychiatric Exam: Anxious - Skin Skin Exam: Warm, Intact - Vital Signs Vitals: Temperature 98.7 F Pulse Rate 140 Respiratory Rate 26 Blood Pressure [Left Arm] 143/90 Blood Pressure [Right Arm] 132/81 Blood Pressure 124/71 O2 Sat by Pulse Oximetry 99 Course - Consultation Called: 07:35 (Dr Dallas accepts pt) ROR - Labs Reviewed Result Diagrams: 12/16/18 06:35 12/16/18 06:35 - Labs Reviewed Laboratory: WBC 23.1 X10^3/uL (3.6-10.0) H 12/16/18 06:35 RBC 4.73 X10^6/uL (4.7-6.0) 12/16/18 06:35 Hgb 13.1 g/dL (13.5-18.0) L 12/16/18 06:35 Hct 41.4 % (42.0-54.0) L 12/16/18 06:35 MCV 87.6 fL (80.0-100.0) 12/16/18 06:35 MCH 27.6 pg (27.0-34.0) 12/16/18 06:35 MCHC 31.5 g/dL (33.0-35.0) L 12/16/18 06:35 RDW 16.3 % (11.6-16.5) 12/16/18 06:35 Plt Count 283 X10^3/uL (150.0-450.0) 12/16/18 06:35 Plt Count Comment Adequate (ADEQUATE) 12/16/18 06:35 MPV 8.0 fL (7.4-11.0) 12/16/18 06:35 Neut % (Auto) 79.0 % (42.0-75.0) H 12/16/18 06:35 Lymph % (Auto) 16.3 % (21.0-51.0) L 12/16/18 06:35 [place] % (Auto) 4.3 % (0.0-13.0) 12/16/18 06:35 Eos % (Auto) 0.1 % (0.9-2.9) L 12/16/18 06:35 Baso % (Auto) 0.3 % (0.2-1.0) 12/16/18 06:35 Neut # (Auto) 18.2 x10^3/uL (2.2-4.8) H 12/16/18 06:35 Lymph # (Auto) 3.8 X10^3/uL (1.3-2.9) H 12/16/18 06:35 [place] # (Auto) 1.0 x10^3/uL (0.3-0.8) H 12/16/18 06:35 Eos # (Auto) 0.0 x10^3/uL (0.0-0.2) 12/16/18 06:35 Baso # (Auto) 0.1 X10^3/uL (0.0-0.1) 12/16/18 06:35 Absolute Nucleated RBC 0.0 /100WBC 12/16/18 06:35 Total Counted 100 12/16/18 06:35 Neutrophils % (Manual) 78 % (39-76) H 12/16/18 06:35 Band Neutrophils % 2 % (0-10) 12/16/18 06:35 Lymphocytes % (Manual) 19 % (13-43) 12/16/18 06:35 Monocytes % (Manual) 1 % (4-9) L 12/16/18 06:35 Plt Morphology Comment Normal (NORMAL) 12/16/18 06:35 RBC Morphology Normal (NORMAL) 12/16/18 06:35 Sample Site Lra 12/16/18 06:55 ABG pH 7.170 (7.35-7.45) L* 12/16/18 06:55 ABG pCO2 15.0 mmHg (35.0-45.0) L* 12/16/18 06:55 ABG pO2 121.0 mmHg (80.0-100.0) H 12/16/18 06:55 ABG HCO3 5.5 mmol/L (22-26) L* 12/16/18 06:55 ABG O2 Saturation 98.0 % (90-100) 12/16/18 06:55 ABG Base Excess -20.8 mmol/L (-2.0-2.0) L 12/16/18 06:55 Geoff Test Pos 08/18/19 06:55 A-a Gradient 10.0 mmHg 12/16/18 06:55 FiO2 21.0 12/16/18 06:55 Blood Gas Comments Pt toll well eb 12/16/18 06:55 Sodium 134 mmol/L (136-145) L 12/16/18 06:35 Corrected Sodium 147 mmol/L (136-145) H 12/16/18 06:35 Potassium 4.7 mmol/L (3.5-5.1) 12/16/18 06:35 Chloride 93 mmol/L (98-107) L 12/16/18 06:35 Carbon Dioxide 8.3 mmol/L (21-32) L* 12/16/18 06:35 BUN 24 mg/dL (7-18) H 12/16/18 06:35 Creatinine 1.52 mg/dL (0.70-1.30) H 12/16/18 06:35 Est GFR (MDRD) Af Amer > 60 (>60) 12/16/18 06:35 Est GFR (MDRD) Non-Af 55 (>60) L 12/16/18 06:35 Glucose 637 mg/dL (65-99) H* 12/16/18 06:35 Calcium 9.5 mg/dL (8.5-10.1) 12/16/18 06:35 Corrected Calcium TNP 12/16/18 06:35 Total Bilirubin 0.90 mg/dL (0.2-1.0) 12/16/18 06:35 AST 13 Units/L (15-37) L 12/16/18 06:35 ALT 9 Units/L (12-78) L 12/16/18 06:35 Alkaline Phosphatase 93 Units/L (46-116) 12/16/18 06:35 Total Protein 8.6 g/dL (6.4-8.2) H 12/16/18 06:35 Albumin 4.0 g/dL (3.4-5.0) 12/16/18 06:35 Globulin 4.6 g/dL (2.5-4.5) H 12/16/18 06:35 Albumin/Globulin Ratio 0.9 Ratio (1.1-2.1) L 12/16/18 06:35 Acetone, Semi-Quant Small (NEGATIVE) H 12/16/18 06:35 Opioid - Opioid Risk Tool Family Hx of Substance Abuse: Illegal Drugs Personal Hx of Substance Abuse: Illegal Drugs Age (Ajit box if 16-45): Yes History of Preadolescent Sexual Abuse: No Total: 2 Total Score Risk Category: Low Risk - Diagnosis Discharge Problem: DKA, type 1 Qualifiers: Diabetes mellitus complication detail: without coma Qualified Code(s): E10.10 - Type 1 diabetes mellitus with ketoacidosis without coma Sepsis Qualifiers: Sepsis type: sepsis due to unspecified organism Sepsis acute organ dysfunction status: with acute organ dysfunction Severe sepsis acute organ dysfunction type: acute renal failure Acute renal failure type: unspecified Severe sepsis shock status: without septic shock Qualified Code(s): A41.9 - Sepsis, unspecified organism; R65.20 - Severe sepsis without septic shock; N17.9 - Acute kidney failure, unspecified - Discharge Plan Disposition: ADMITTED INPATIENT Condition: Serious - Follow ups/Referrals Follow ups/Referrals: Charlie Dallas [Primary Care Provider] - 3 days - Instructions
[2018-12-16 06:59] LABS: ABG BASE EXCESS -20.8 mmol/L (-2.0-2.0)
[2018-12-16 07:00] LABS: SERUM ACETONE SMALL (NEGATIVE)
[2018-12-16 07:01] LABS: BAND NEUTROPHILS % 2 % (0-10); PLATELET MORPHOLOGY COMMENT NORMAL (NORMAL)
[2018-12-16 07:02] LABS: ALANINE AMINOTRANSFERASE 9 Units/L (12-78); ALKALINE PHOSPHATASE 93 Units/L (46-116); ASPARTATE AMINO TRANSFERASE 13 Units/L (15-37); BLOOD UREA NITROGEN 24 mg/dL (7-18); CALCIUM 9.5 mg/dL (8.5-10.1); CHLORIDE 93 mmol/L (98-107); CREATININE 1.52 mg/dL (0.70-1.30); SODIUM 134 mmol/L (136-145); TOTAL PROTEIN 8.6 g/dL (6.4-8.2); eGFR NON BLACK RACES 55 (>60)
[2018-12-16 07:03] LABS: ABG ALLEN TEST POS; ABG HCO3 5.5 mmol/L (22-26)
[2018-12-16 07:04] LABS: CARBON DIOXIDE 8.3 mmol/L (21-32); COR NA(FOR HYPERGLY) 147 mmol/L (136-145)
[2018-12-16] MEDS ORDERED: ZOSYN VIAL 3.375 GRAMS 3.375 G in NS 100 ML IV + SPIKE MINIBAG* 100 ML IV ONE (07:07)
[2018-12-16] MEDS ORDERED: ZOFRAN INJ 4 MG VIAL ONE (07:27)
[2018-12-16] MEDS ORDERED: ZOSYN VIAL 3.375 GRAMS IV ONE (07:27)
[2018-12-16] MEDS ORDERED: NS 100 ML IV + SPIKE MINIBAG* 100 ML ONE (07:27)
--- NOTE | 2018-12-16 07:31 | RAD ---
Examination: Abdomen series, three views History: Nausea and vomiting Comparison 11/03/2018 Findings: Two views of the abdomen are supplemented by a frontal view of the chest. None of the images are designated either supine or upright. Frontal view of the chest is unremarkable. There is a right subclavian injection port extending to the right atrium. There is gaseous distention of small and large bowel. There is relative excess of feces in the colon. No mass formation or ascites is seen. Impression: Described intestinal gas pattern is consistent with constipation. Negative appearance of abdomen and chest otherwise. Reported By:
[2018-12-16] MEDS ORDERED: VANCOMYCIN HCL 1 GM VIAL 1 G in D5W 250 ML IV 250 ML IV ONE (07:41)
[2018-12-16 07:43] LABS: BILIRUBIN,URINE NEGATIVE (NEGATIVE); BLOOD/HEMOGLOBIN,URINE NEGATIVE (NEGATIVE); GLUCOSE, URINE 4+ (NEGATIVE); KETONES,URINE 4+ (NEGATIVE); LEUKOCYTE ESTERASE ,URINE NEGATIVE (NEGATIVE); NITRITES,URINE NEGATIVE (NEGATIVE); PROTEIN,URINE NEGATIVE (NEGATIVE); UROBILINOGEN,URINE NORMAL (NORMAL)
[2018-12-16] MEDS ORDERED: NS 250 ML IV 250 ML ONE (07:45)
[2018-12-16] MEDS ORDERED: VANCOMYCIN HCL 1 GM VIAL ONE (07:45)
[2018-12-16 07:50] LABS: APPEARANCE,URINE CLEAR (CLEAR); COLOR,URINE PALE YELLOW (YELLOW)
[2018-12-16] MEDS ORDERED: NS 100 ML IV 100 ML ONE (07:57)
[2018-12-16] MEDS ORDERED: HumuLIN R ONE (07:57)
[2018-12-16] MEDS ORDERED: PHARMACY CONSULT - VANCOMYCIN XX SCH (08:00)
[2018-12-16] MEDS: ZOSYN VIAL 3.375 GRAMS 3.375 G in NS 100 ML IV + SPIKE MINIBAG* 100 ML IV SCH ×3 (08:25→21:29)
[2018-12-16] MEDS: NS 1000 ML 1,000 ML IV SCH ×5 (08:30→18:33)
[2018-12-16] MEDS ORDERED: PHENERGAN INJ 25 MG IM ONE (08:54)
[2018-12-16] MEDS: PHENERGAN INJ 25 MG IM PRN (08:56)
[2018-12-16 11:49] LABS: MAGNESIUM 1.8 mg/dL (1.7-2.9); PHOSPHORUS 6.2 mg/dL (2.6-4.7)
[2018-12-16] MEDS ORDERED: NS 1000 ML 1,000 ML with SODIUM BICARBONATE 8.4% INJ ADULT 100 ML IV ONE ×2 (12:16)
[2018-12-16] MEDS ORDERED: SODIUM BICARBONATE 8.4% INJ ADULT ONE ×2 (12:19→13:42)
[2018-12-16] MEDS ORDERED: NS 500 ML IV 500 ML ONE (13:45)
[2018-12-16] MEDS: NS 1000 ML 1,000 ML with SODIUM BICARBONATE 8.4% INJ ADULT 100 ML IV ONE ×4 (13:51→15:45)
[2018-12-16] MEDS: VANCOMYCIN HCL 1 GM VIAL 1 G in NS 250 ML IV 250 ML IV SCH ×2 (13:53→21:28)
[2018-12-16 17:04] LABS: ABG ALLEN TEST POS; ABG BASE EXCESS -1.1 mmol/L (-2.0-2.0)
[2018-12-16] MEDS: ZOFRAN INJ 4 MG VIAL IVP PRN (17:22)
[2018-12-16] MEDS ORDERED: TYLENOL 325 MG TAB PO ONE (18:54)
[2018-12-16] MEDS: TYLENOL 325 MG TAB PO PRN (19:03)
[2018-12-16] MEDS: MORPHINE SULFATE INJ 2 MG INJ IVP PRN (19:16)
[2018-12-16] MEDS: SNACK - Diabetic Appropriate PO SCH (20:34)
[2018-12-16] MEDS: HumuLIN R SUBCUT PRN ×3 (20:50→23:35)
[2018-12-17] MEDS: MORPHINE SULFATE INJ 2 MG INJ IVP PRN ×4 (02:40→20:14)
[2018-12-17] MEDS: NS 1000 ML 1,000 ML IV SCH ×3 (03:19→17:28)
[2018-12-17] MEDS: ZOSYN VIAL 3.375 GRAMS 3.375 G in NS 100 ML IV + SPIKE MINIBAG* 100 ML IV SCH ×3 (05:17→23:25)
[2018-12-17] MEDS ORDERED: PHARMACY COMMENT IV NR (05:30)
[2018-12-17] MEDS: HumuLIN R SUBCUT PRN ×5 (05:36→20:33)
[2018-12-17 06:02] LABS: ABG BASE EXCESS -6.2 mmol/L (-2.0-2.0)
[2018-12-17 06:03] LABS: ABG HCO3 17.1 mmol/L (22-26)
[2018-12-17 06:18] LABS: ALANINE AMINOTRANSFERASE 8 Units/L (12-78); ALBUMIN 3.6 g/dL (3.4-5.0); ALKALINE PHOSPHATASE 83 Units/L (46-116); ASPARTATE AMINO TRANSFERASE 30 Units/L (15-37); BLOOD UREA NITROGEN 9 mg/dL (7-18); CALCIUM 8.2 mg/dL (8.5-10.1); CARBON DIOXIDE 18.3 mmol/L (21-32); CHLORIDE 106 mmol/L (98-107); COR NA(FOR HYPERGLY) 148 mmol/L (136-145); CREATININE 0.95 mg/dL (0.70-1.30); SODIUM 146 mmol/L (136-145); eGFR NON BLACK RACES > 60 (>60)
[2018-12-17 06:20] LABS: CREATININE 0.95 mg/dL (0.70-1.30)
[2018-12-17] MEDS ORDERED: POTASSIUM CHL 40 MEQ/NS 0.45% 500 ML IV PRN (06:21)
[2018-12-17] MEDS ORDERED: KLOR-CON PO PRN (06:21)
[2018-12-17] MEDS ORDERED: MICRO K EXTEN CAP 10 MEQ PO PRN (06:21)
[2018-12-17] MEDS ORDERED: POTASSIUM CHLORIDE LIQ 20 MEQ UDC PO PRN (06:21)
[2018-12-17 06:23] LABS: BASOPHILS % (AUTO) 0.1 % (0.2-1.0); EOSINOPHILS % (AUTO) 0.1 % (0.9-2.9); HEMATOCRIT 36.4 % (42.0-54.0); HEMOGLOBIN 11.7 g/dL (13.5-18.0); LYMPHOCYTES # (AUTO) 2.3 X10^3/uL (1.3-2.9); LYMPHOCYTES % (AUTO) 10.9 % (21.0-51.0); MEAN CORPUSCULAR HEMOGLOBIN 27.2 pg (27.0-34.0); MEAN CORPUSCULAR HGB CONC 32.2 g/dL (33.0-35.0); MEAN CORPUSCULAR VOLUME 84.3 fL (80.0-100.0); MONOCYTES # (AUTO) 1.5 x10^3/uL (0.3-0.8); MONOCYTES % (AUTO) 6.8 % (0.0-13.0); NEUTROPHILS # (AUTO) 17.5 x10^3/uL (2.2-4.8); NEUTROPHILS % (AUTO) 82.1 % (42.0-75.0); PLATELET COUNT 210 X10^3/uL (150.0-450.0); RED BLOOD COUNT 4.32 X10^6/uL (4.7-6.0); RED CELL DISTRIBUTION WIDTH 15.9 % (11.6-16.5); WHITE BLOOD COUNT 21.4 X10^3/uL (3.6-10.0)
[2018-12-17 06:24] LABS: SERUM ACETONE MODERATE (NEGATIVE)
[2018-12-17] MEDS: VANCOMYCIN HCL 1 GM VIAL 1 G in NS 250 ML IV 250 ML IV SCH ×3 (06:27→21:16)
[2018-12-17 06:39] LABS: LACTIC ACID 1.7 mmol/L (0.4-2.0)
[2018-12-17 06:50] LABS: PLATELET MORPHOLOGY COMMENT NORMAL (NORMAL); POIKILOCYTOSIS SLIGHT
[2018-12-17] MEDS: POTASSIUM CHL 60 MEQ/NS 0.45% 500 ML IV PRN (08:16)
[2018-12-17] MEDS: MAGNESIUM SULFATE 1 GRAM/100 mL PREMIX 1 GM/100 ML BAG IV PRN ×3 (09:09→23:25)
[2018-12-17] MEDS: COLACE CAP 100 MG PO SCH ×2 (11:25→20:15)
[2018-12-17] MEDS: PHENERGAN INJ 25 MG IM PRN ×2 (12:17→17:28)
[2018-12-17] MEDS: MILK OF MAGNESIA PO SCH ×3 (13:23→20:15)
[2018-12-17] MEDS: ZOFRAN INJ 4 MG VIAL IVP PRN (15:22)
--- NOTE | 2018-12-17 16:30 | CT ---
History: Shortness of breath and leukocytosis Study: CT chest with IV Omnipaque 350 contrast. Sagittal and coronal reformations were provided as well as axial MIPS. Dose reduction techniques were utilized. Findings: There is irregular linear horizontal density in the posterior basilar segment of the right lower lobe. There are ill-defined increased interstitial lung markings in the superior segment of the right lower lobe and posterior laterally in the right upper lobe, peripherally. No lung nodule is demonstrated. There is no pleural effusion. The left lung is grossly clear. No mediastinal or hilar adenopathy is demonstrated. No pulmonary embolus is suggested. No significant bony abnormality is demonstrated. Impression: 1. Subsegmental atelectasis in the posterior basilar segment of the right lower lobe multifocal areas of minimal pneumonitis versus scarring in the superior segment of the right lower lobe and in the right upper lobe, both peripherally. Reported By:
--- NOTE | 2018-12-17 16:38 | CT ---
History: Leukocytosis Study: CT abdomen and pelvis with 100 mL Omnipaque 350 IV contrast and with oral contrast.. Sagittal and coronal reformations were provided. Dose reduction techniques were utilized. Comparison: November 27, 2017 Findings: There is a new linear horizontal density in the posterior basilar segment of the right lower lobe. There is no effusion. There is mild fatty infiltration of the liver. The liver is normal in size. The spleen and pancreas and adrenal glands and kidneys are unremarkable. The gallbladder is unremarkable without stone. There is no biliary dilatation. There is a Andrea balloon catheter in the urinary bladder. There is no hydronephrosis. There is prominent fecal material throughout the entire colon with a lot of formed stool. There is no small bowel distention. No bony abnormality is demonstrated. I do not visualize an abnormal appendix. Impression: Subsegmental atelectasis in the posterior basilar segment of the right lower lobe. Mild fatty infiltration of the liver. Probable constipation Reported By:
[2018-12-17] MEDS: K-RIDER 10 MEQ/NS 100 ML 10 MEQ/100 ML BAG IV PRN ×3 (19:42→22:17)
--- NOTE | 2018-12-17 19:49 | DR.H&P ---
H&P - History & Physical for Day of: H&P Date: 12/16/18 - Chief Complaint Chief Complaint: ABDOMINAL PAIN, NAUSEA, VOMITING - History of Present Illness History of Present Illness: IS A 38 YEAR OLD PATIENT OF OURS WHO PRESENTED TO THE ER WITH COMPLAINTS OF NAUSEA, VOMITING, AND ABDOMINAL PAIN. PATIENT IS A KNOWN DIABETIC WHO IS OFTEN ADMITTED FOR DKA. HE REPORTS THAT SYMPTOMS STARTED EARLIER IN THE DAY. ON ARRIVAL TO THE ER, VITALS WERE 98.7-140-26-99%-124/71. LABS WERE OBTAINED. ABNORMAL LAB VALUES INCLUDE THE FOLLOWING: WBC 23.1, HGB 13.1, HCT 41.4, SODIUM 134, CHLORIDE 93, CARBON DIOXIDE 8.3, BUN 24, CREATININE 1.52, GLUCOSE 637, PHOSPHORUS 6.2, AST 13, ALT 9, TOTAL PROTEIN 8.6, AMYLASE 119, ACETONES SMALL, LACTIC ACID 7.1. AN ABG WAS OBTAINED AND REVEALED: PH 7.170, PC02 15.0, P02 121.0, HC03 5.5, 02 SATURATION 98.0, BASE EXCESS -20.8. AN EKG WAS OBTAINED AND REVEALED: SINUS TACHYCARDIA WITH HR 144. AN ABDOMEN XRAY WAS OBTAINED AND REVEALED: Described intestinal gas pattern is consistent with constipation. Negative appearance of abdomen and chest otherwise. HE WAS GIVEN A NORMAL SALINE BOLUS X 2 LITERS, ZOFRAN 4MG IV X 1, ZOSYN 3.375G IV X 1, VANCOMYCIN 1G IV X 1 DOSE, AND STARTED ON AN INSULIN DRIP. HE WAS ADMITTED TO THE HOSPITAL FOR FURTHER EVALUATION AND TREATMENT OF DKA, SEPSIS, DEHYDRATION, AND RENAL FAILURE. WE WILL REPEAT BLOOD GAS LATER IN THE DAY, MONITOR OTBS, AND FOLLOW UP WITH AM LABS. - Past Medical History Past Medical History: Diabetes Additional Medical History: DKA, Gastroparesis, Chronic Low Back Pain With Radiculopathy, Pancreatitis, UTI's - Past Surgical History Surgical History: Other Additional Surgical History: [place] Teeth Surgically Removed - Family History Family Medical History: Diabetes Mellitus, Sudden Cardiac , Hypertension - Social History Does patient currently use any type of tobacco product: Yes Have you used tobacco products in the last 12 months: Yes Type of Tobacco Use: Cigarettes Does any household member use tobacco: No Alcohol Use: None Drug Use: Prescription Drugs - Medications Home Medications: No Known Drug Allergies Allergy (Verified 11/03/18 01:58) CONTINUE taking the following medications dextroamphetamine-amphetamine 30 mg PO BID 12/16/18 [History] linaclotide [Linzess] 290 mcg PO DAILY 12/16/18 [History] - Review of Systems Constitutional: Fever, Chills, Weakness Eyes: No Symptoms Reported ENT: No Symptoms Reported Respiratory: Shortness of Breath Gastrointestinal: Nausea, Vomiting, Abdominal Pain, Constipation Genitourinary: No Symptoms Reported Musculoskeletal: No Symptoms Reported Skin: No Symptoms Reported Neurological: Weakness - Physical Exam Vital Signs: Temperature 98.3 F Pulse Rate [Left Brachial] 149 Pulse Rate 117 Respiratory Rate 20 Blood Pressure [Left Arm] 125/59 Blood Pressure [Right Arm] 132/81 Blood Pressure 163/80 O2 Sat by Pulse Oximetry 100 Oriented: Normal Eyes: Normal Ear: Normal Nose: Normal Throat: Normal Respiratory: Diminished Throughout Cardiovascular: Tachycardia. negative: S3, S4, Murmur : Normal Auscultation: Bowel Sounds: Decreased Palpation: Normal Tenderness: Diffuse, Severe. negative: Rebound, Guarding, Rigidity Skin: Decreased Turgur Musculoskeletal: Normal Psychiatric: Normal Mood Description: Calm Affect: Normal Speech Pattern: Clear - Assessment/Plan (1) DKA (diabetic ketoacidoses) Qualifiers: Diabetes mellitus type: type 1 Diabetes mellitus complication detail: without coma Qualified Code(s): E10.10 - Type 1 diabetes mellitus with ketoacidosis without coma Status: Acute Plan: ADMIT, INSULIN DRIP, MONITOR OTBS, CONTINUE TO MONITOR (2) Sepsis Qualifiers: Sepsis type: sepsis due to unspecified organism Sepsis acute organ dysfunction status: with acute organ dysfunction Severe sepsis acute organ dysfunction type: acute renal failure Acute renal failure type: with acute tubular necrosis Severe sepsis shock status: unspecified Qualified Code(s): A41.9 - Sepsis, unspecified organism; R65.20 - Severe sepsis without septic shock; N17.0 - Acute kidney failure with tubular necrosis Status: Acute Plan: IV ZOSYN, IV VANCOMYCIN, IV FLUIDS, CONTINUE TO MONITOR (3) Dehydration Status: Acute (4) Renal failure Qualifiers: Renal failure chronicity: acute Status: Acute Plan: NORMAL SALINE, CONTINUE TO MONITOR - Allergies Allergies/Adverse Reactions: Allergies Allergy/AdvReac Type Severity Reaction Status Date / Time No Known Drug Allergies Allergy Verified 11/03/18 01:58
[2018-12-17] MEDS ORDERED: NS 100 ML IV + SPIKE MINIBAG* 100 ML ONE (20:09)
[2018-12-17] MEDS: SNACK - Diabetic Appropriate PO SCH (20:34)
[2018-12-17] MEDS: DUONEB 0.5 MG/3 MG NEB SCH (20:59)
--- NOTE | 2018-12-17 21:54 | PCM.PROG ---
Progress Note - Progress Note for Day of Date of Exam: 12/17/18 - Subjective Subjective: WAS ADMITTED FOR DKA, ACUTE DEHYDRATION, LEUKOCYTOSIS, SEPSIS, AND RENAL FAILURE. TODAY, HE IS LYING IN BED WITH EYES CLOSED ON MORNING ROUNDS. HE OPENS EYES TO VERBAL STIMULI. HIS MOTHER IS AT BEDSIDE AND REPORTS THAT HE CONTINUES WITH SEVERE WEAKNESS AND NAUSEA. ON EXAMINATION, HE IS NOTED TO BE TACHYCARDIC WITH HR IN THE LOW 100s. LUNGS ARE NOTED WITH DIMINISHED LUNG SOUNDS THROUGHOUT. ABDOMEN IS FLAT, SOFT, AND NOTED WITH DIFFUSE TENDERNESS. HYPOACTIVE BOWEL SOUNDS ARE NOTED. HIS VITALS THIS MORNING ARE 99.4-387-66-100%-156/94. LABS WERE OBTAINED. ABNORMAL LAB VALUES INCLUDE THE FOLLOWING: WBC 21.4, RBC 4.32, HGB 11.7, HCT 36.4, SODIUM 146, POTASSIUM 2.9, CARBON DIOXIDE 18.3, GLUCOSE 189, CALCIUM 8.2, MAGNESIUM 1.5, ALT 8, ACETONES MODERATE. LACTIC ACID IS NORMAL AT 1.7 TODAY. TODAYS ABG REVEALED: PH 7.410, PC02 27.0, P02 93.0, HC03 17.1, 02 SATURATION 97.0, BASE EXCESS -6.2. BLOOD CULTURES PENDING. HE IS CURRENTLY RECEIVING NORMAL SALINE AT 125ML/HR, IV VANCOMYCIN, IV ZOSYN, AND HUMULIN R SLIDING SCALE. TODAY, WE WILL OBTAIN AN ABDOMEN/PELVIS CT WITH CONTRAST AND CHEST CT WITH CONTRAST. WE WILL REPLEAT HIS POTASSIUM AND MAGNESIUM. WE WILL ALSO START A BOWEL REGIMEN. OTHERWISE, WE WILL FOLLOW UP WITH AM LABS AND ABG AND CONTINUE TO MONITOR. - Past Medical Family Social History Past Med/Fam/Surg Hx: No changes since H&P Allergies: Allergies No Known Drug Allergies Allergy (Verified 11/03/18 01:58) - Review of Systems ROS: No change since H&P - Vital Signs and I&O's Vital Signs: Temperature 98.3 F Pulse Rate [Left Brachial] 149 Pulse Rate 117 Respiratory Rate 16 Blood Pressure [Left Arm] 125/59 Blood Pressure [Right Arm] 132/81 Blood Pressure 163/80 O2 Sat by Pulse Oximetry 100 Intake and Output: Intake & Output 12/15/18 12/16/18 12/17/18 12/18/18 11:59 11:59 11:59 11:59 Intake Total 7149 / 7149 2255 / 2255 Output Total 1200 / 1200 5325 / 5325 3000 / 3000 Balance -1200 / -1200 1824 / 1824 -745 / -745 - Physical Exam Oriented: Normal Eyes: Normal Ear: Normal Nose: Normal Throat: Normal Respiratory: Generalized, Diminished Cardiovascular: Tachycardia. negative: S3, S4, Murmur : Normal Auscultation: Bowel Sounds: Decreased Palpation: Normal Tenderness: Diffuse, Severe. negative: Rebound, Guarding, Rigidity Skin: Decreased Turgur Musculoskeletal: Normal Psychiatric: Normal Mood Description: Calm Affect: Normal Speech Pattern: Clear - Laboratory and Diagnostics Result Diagrams: 12/17/18 05:20 12/17/18 19:00 Labs: Laboratory WBC 21.4 X10^3/uL (3.6-10.0) H 12/17/18 05:20 RBC 4.32 X10^6/uL (4.7-6.0) L 12/17/18 05:20 Hgb 11.7 g/dL (13.5-18.0) L 12/17/18 05:20 Hct 36.4 % (42.0-54.0) L 12/17/18 05:20 MCV 84.3 fL (80.0-100.0) 12/17/18 05:20 MCH 27.2 pg (27.0-34.0) 12/17/18 05:20 MCHC 32.2 g/dL (33.0-35.0) L 12/17/18 05:20 RDW 15.9 % (11.6-16.5) 12/17/18 05:20 Plt Count 210 X10^3/uL (150.0-450.0) 12/17/18 05:20 Plt Count Comment Adequate (ADEQUATE) 12/17/18 05:20 MPV 8.0 fL (7.4-11.0) 12/17/18 05:20 Neut % (Auto) 82.1 % (42.0-75.0) H 12/17/18 05:20 Lymph % (Auto) 10.9 % (21.0-51.0) L 12/17/18 05:20 [place] % (Auto) 6.8 % (0.0-13.0) 12/17/18 05:20 Eos % (Auto) 0.1 % (0.9-2.9) L 12/17/18 05:20 Baso % (Auto) 0.1 % (0.2-1.0) L 12/17/18 05:20 Neut # (Auto) 17.5 x10^3/uL (2.2-4.8) H 12/17/18 05:20 Lymph # (Auto) 2.3 X10^3/uL (1.3-2.9) 12/17/18 05:20 [place] # (Auto) 1.5 x10^3/uL (0.3-0.8) H 12/17/18 05:20 Eos # (Auto) 0.0 x10^3/uL (0.0-0.2) 12/17/18 05:20 Baso # (Auto) 0.0 X10^3/uL (0.0-0.1) 12/17/18 05:20 Absolute Nucleated RBC 0.1 /100WBC 12/17/18 05:20 Total Counted 100 12/17/18 05:20 Neutrophils % (Manual) 86 % (39-76) H 12/17/18 05:20 Band Neutrophils % 2 % (0-10) 12/16/18 06:35 Lymphocytes % (Manual) 10 % (13-43) L 12/17/18 05:20 Monocytes % (Manual) 4 % (4-9) 12/17/18 05:20 Plt Morphology Comment Normal (NORMAL) 12/17/18 05:20 RBC Morphology Abnormal (NORMAL) 12/17/18 05:20 Poikilocytosis Slight A 12/17/18 05:20 PT 14.9 SECONDS (11.8-14.3) 12/16/18 13:00 INR Target Range - 12/16/18 13:00 INR 1.21 (0.8-1.3) 12/16/18 13:00 APTT 23.1 SECONDS (22.9-36.5) 12/16/18 13:00 PTT Comment - 12/16/18 13:00 Sample Site [facility] 12/17/18 05:57 ABG pH 7.410 (7.35-7.45) 12/17/18 05:57 ABG pCO2 27.0 mmHg (35.0-45.0) L 12/17/18 05:57 ABG pO2 93.0 mmHg (80.0-100.0) 12/17/18 05:57 ABG HCO3 17.1 mmol/L (22-26) L* 12/17/18 05:57 ABG O2 Saturation 97.0 % (90-100) 12/17/18 05:57 ABG Base Excess -6.2 mmol/L (-2.0-2.0) L 12/17/18 05:57 Geoff Test Na 12/17/18 05:57 A-a Gradient 23.0 mmHg 12/17/18 05:57 FiO2 21.0 12/17/18 05:57 Blood Gas Comments Marva abg well 12/17/18 05:57 Sodium 146 mmol/L (136-145) H 12/17/18 05:20 Corrected Sodium 148 mmol/L (136-145) H 12/17/18 05:20 Potassium 2.8 mmol/L (3.5-5.1) L* 12/17/18 19:00 Chloride 106 mmol/L (98-107) 12/17/18 05:20 Carbon Dioxide 18.3 mmol/L (21-32) L 12/17/18 05:20 BUN 9 mg/dL (7-18) 12/17/18 05:20 Creatinine 0.95 mg/dL (0.70-1.30) 12/17/18 05:20 Est GFR (MDRD) Af Amer > 60 (>60) 12/17/18 05:20 Est GFR (MDRD) Non-Af > 60 (>60) 12/17/18 05:20 Glucose 189 mg/dL (65-99) H 12/17/18 05:20 Lactic Acid 1.7 mmol/L (0.4-2.0) 12/17/18 05:20 Calcium 8.2 mg/dL (8.5-10.1) L 12/17/18 05:20 Corrected Calcium TNP 12/17/18 05:20 Phosphorus 6.2 mg/dL (2.6-4.7) H 12/16/18 06:35 Magnesium 1.7 mg/dL (1.7-2.9) 12/17/18 19:00 Total Bilirubin 0.70 mg/dL (0.2-1.0) 12/17/18 05:20 AST 30 Units/L (15-37) 12/17/18 05:20 ALT 8 Units/L (12-78) L 12/17/18 05:20 Alkaline Phosphatase 83 Units/L (46-116) 12/17/18 05:20 Total Protein 8.0 g/dL (6.4-8.2) 12/17/18 05:20 Albumin 3.6 g/dL (3.4-5.0) 12/17/18 05:20 Globulin 4.4 g/dL (2.5-4.5) 12/17/18 05:20 Albumin/Globulin Ratio 0.8 Ratio (1.1-2.1) L 12/17/18 05:20 Amylase 119 Units/L (25-115) H 12/16/18 06:35 Lipase 129 Units/L (73-393) 12/16/18 06:35 Specimen Type Catherized urine 12/16/18 07:16 Urine Color Pale yellow (YELLOW) 12/16/18 07:16 Urine Appearance Clear (CLEAR) 12/16/18 07:16 Urine pH 5.0 (5.0 - 8.0) 12/16/18 07:16 Ur Specific [place] 1.020 (1.000-1.030) 12/16/18 07:16 Urine Protein Negative (NEGATIVE) 12/16/18 07:16 Urine Glucose (UA) 4+ (NEGATIVE) 12/16/18 07:16 Urine Ketones 4+ (NEGATIVE) 12/16/18 07:16 Urine Occult Blood Negative (NEGATIVE) 12/16/18 07:16 Urine Nitrite Negative (NEGATIVE) 12/16/18 07:16 Urine Bilirubin Negative (NEGATIVE) 12/16/18 07:16 Urine Urobilinogen Normal (NORMAL) 12/16/18 07:16 Ur Leukocyte Esterase Negative (NEGATIVE) 12/16/18 07:16 Vancomycin Trough 14.0 ug/mL (15-20) L 12/17/18 05:20 Acetone, Semi-Quant Moderate (NEGATIVE) H 12/17/18 05:20 - Plan (1) DKA (diabetic ketoacidoses) Status: Acute Qualifiers: Diabetes mellitus type: type 1 Diabetes mellitus complication detail: without coma Qualified Code(s): E10.10 - Type 1 diabetes mellitus with ketoacidosis without coma Plan: HUMULIN R SLIDING SCALE, IV FLUIDS, MONITOR OTBS, CONTINUE TO MONITOR (2) Sepsis Status: Acute Qualifiers: Sepsis type: sepsis due to unspecified organism Sepsis acute organ dysfunction status: with acute organ dysfunction Severe sepsis acute organ dysfunction type: acute renal failure Acute renal failure type: with acute tubular necrosis Severe sepsis shock status: unspecified Qualified Code(s): A41.9 - Sepsis, unspecified organism; R65.20 - Severe sepsis without septic shock; N17.0 - Acute kidney failure with tubular necrosis Plan: IV ZOSYN, IV VANCOMYCIN, IV FLUIDS, CONTINUE TO MONITOR (3) Dehydration Status: Acute Plan: NORMAL SALINE AT 125ML/HR (4) Renal failure Status: Acute Qualifiers: Renal failure chronicity: acute Plan: NORMAL SALINE, CONTINUE TO MONITOR
[2018-12-18] MEDS: MORPHINE SULFATE INJ 2 MG INJ IVP PRN ×6 (00:24→22:33)
[2018-12-18] MEDS: K-RIDER 10 MEQ/NS 100 ML 10 MEQ/100 ML BAG IV PRN ×3 (00:35→03:32)
[2018-12-18] MEDS: PHENERGAN INJ 25 MG IM PRN (02:05)
[2018-12-18] MEDS ORDERED: CATAPRES TAB 0.1 MG PO ONE (03:36)
[2018-12-18] MEDS ORDERED: CATAPRES TAB 0.1 MG ONE (03:38)
[2018-12-18 04:41] LABS: ABG BASE EXCESS -17.2 mmol/L (-2.0-2.0)
[2018-12-18 04:42] LABS: ABG HCO3 5.8 mmol/L (22-26)
[2018-12-18] MEDS ORDERED: NS 1000 ML 1,000 ML IV SCH (05:00)
[2018-12-18] MEDS ORDERED: SODIUM BICARBONATE 8.4% INJ ADULT ONE ×2 (05:24→05:36)
[2018-12-18] MEDS ORDERED: VANCOMYCIN HCL 1 GM VIAL ONE (05:36)
[2018-12-18] MEDS ORDERED: NS 250 ML IV 250 ML ONE (05:36)
[2018-12-18] MEDS: VANCOMYCIN HCL 1 GM VIAL 1 G in NS 250 ML IV 250 ML IV SCH ×3 (05:53→21:48)
[2018-12-18] MEDS: ZOSYN VIAL 3.375 GRAMS 3.375 G in NS 100 ML IV + SPIKE MINIBAG* 100 ML IV SCH ×3 (05:53→21:48)
[2018-12-18] MEDS: NS 1000 ML 1,000 ML IV SCH (05:54)
[2018-12-18] MEDS: HumuLIN R SUBCUT PRN (06:06)
--- NOTE | 2018-12-18 06:07 | RAD ---
HISTORY: Shortness of breath Study: Chest AP portable Comparison: 11/09/2018 Findings: There is a port present on the right. The heart is within normal limits in size. The ariadna are normal. The lungs are hyperinflated but free of acute alveolar infiltrates. No pleural effusions are identified. The bony thorax is unremarkable. IMPRESSION: Lungs hyperinflated but free of acute infiltrates Reported By:
[2018-12-18 06:34] LABS: BASOPHILS % (AUTO) 0.1 % (0.2-1.0); HEMOGLOBIN 12.3 g/dL (13.5-18.0); LYMPHOCYTES # (AUTO) 1.7 X10^3/uL (1.3-2.9); LYMPHOCYTES % (AUTO) 9.6 % (21.0-51.0); MEAN CORPUSCULAR HEMOGLOBIN 27.8 pg (27.0-34.0); MEAN CORPUSCULAR HGB CONC 31.6 g/dL (33.0-35.0); MEAN CORPUSCULAR VOLUME 88.1 fL (80.0-100.0); MEAN PLATELET VOLUME 8.3 fL (7.4-11.0); MONOCYTES # (AUTO) 0.5 x10^3/uL (0.3-0.8); MONOCYTES % (AUTO) 2.9 % (0.0-13.0); NEUTROPHILS # (AUTO) 15.2 x10^3/uL (2.2-4.8); NEUTROPHILS % (AUTO) 87.4 % (42.0-75.0); PLATELET COUNT 222 X10^3/uL (150.0-450.0); RED BLOOD COUNT 4.43 X10^6/uL (4.7-6.0); RED CELL DISTRIBUTION WIDTH 15.8 % (11.6-16.5); WHITE BLOOD COUNT 17.3 X10^3/uL (3.6-10.0)
[2018-12-18 06:39] LABS: ALANINE AMINOTRANSFERASE 8 Units/L (12-78); ALBUMIN 3.4 g/dL (3.4-5.0); ALKALINE PHOSPHATASE 93 Units/L (46-116); ASPARTATE AMINO TRANSFERASE 32 Units/L (15-37); BLOOD UREA NITROGEN 13 mg/dL (7-18); CALCIUM 8.5 mg/dL (8.5-10.1); CHLORIDE 97 mmol/L (98-107); COR NA(FOR HYPERGLY) 145 mmol/L (136-145); CREATININE 1.08 mg/dL (0.70-1.30); MAGNESIUM 2.1 mg/dL (1.7-2.9); SODIUM 135 mmol/L (136-145); TOTAL PROTEIN 7.6 g/dL (6.4-8.2); eGFR NON BLACK RACES > 60 (>60)
[2018-12-18 06:40] LABS: CARBON DIOXIDE 5.8 mmol/L (21-32)
[2018-12-18] MEDS: DUONEB 0.5 MG/3 MG NEB SCH ×4 (08:51→20:54)
[2018-12-18] MEDS: ZOFRAN INJ 4 MG VIAL IVP PRN ×2 (09:49→17:29)
[2018-12-18] MEDS: MILK OF MAGNESIA PO SCH ×4 (09:55→21:49)
[2018-12-18] MEDS: COLACE CAP 100 MG PO SCH ×2 (09:55→21:49)
[2018-12-18] MEDS: NS 1000 ML 1,000 ML with SODIUM BICARBONATE 8.4% INJ ADULT 100 ML IV SCH ×2 (12:52)
[2018-12-18 13:42] LABS: CREATININE 0.96 mg/dL (0.70-1.30); VANCOMYCIN,TROUGH 19.5 ug/mL (15-20)
[2018-12-18] MEDS: SNACK - Diabetic Appropriate PO SCH (20:46)
[2018-12-19] MEDS: ZOFRAN INJ 4 MG VIAL IVP PRN (00:02)
[2018-12-19] MEDS: PHENERGAN INJ 25 MG IM PRN ×2 (01:16→08:39)
[2018-12-19] MEDS: NS 1000 ML 1,000 ML with SODIUM BICARBONATE 8.4% INJ ADULT 100 ML IV SCH ×6 (02:19→11:51)
[2018-12-19] MEDS: MORPHINE SULFATE INJ 2 MG INJ IVP PRN ×5 (02:38→20:02)
[2018-12-19] MEDS: VANCOMYCIN HCL 1 GM VIAL 1 G in NS 250 ML IV 250 ML IV SCH ×3 (05:15→21:42)
[2018-12-19] MEDS: ZOSYN VIAL 3.375 GRAMS 3.375 G in NS 100 ML IV + SPIKE MINIBAG* 100 ML IV SCH ×3 (05:16→21:43)
[2018-12-19 06:34] LABS: ALANINE AMINOTRANSFERASE 10 Units/L (12-78); ALBUMIN 3.2 g/dL (3.4-5.0); ALKALINE PHOSPHATASE 82 Units/L (46-116); ASPARTATE AMINO TRANSFERASE 27 Units/L (15-37); BLOOD UREA NITROGEN 11 mg/dL (7-18); CALCIUM 8.3 mg/dL (8.5-10.1); CARBON DIOXIDE 19.3 mmol/L (21-32); CHLORIDE 103 mmol/L (98-107); COR CA(FOR HYPOALB) 8.9 mg/dL (8.5-10.1); COR NA(FOR HYPERGLY) 145 mmol/L (136-145); CREATININE 0.93 mg/dL (0.70-1.30); SODIUM 143 mmol/L (136-145); TOTAL PROTEIN 7.7 g/dL (6.4-8.2); eGFR NON BLACK RACES > 60 (>60)
[2018-12-19 06:38] LABS: BASOPHILS # (AUTO) 0.2 X10^3/uL (0.0-0.1); BASOPHILS % (AUTO) 1.1 % (0.2-1.0); HEMATOCRIT 36.8 % (42.0-54.0); HEMOGLOBIN 12.6 g/dL (13.5-18.0); LYMPHOCYTES # (AUTO) 2.4 X10^3/uL (1.3-2.9); LYMPHOCYTES % (AUTO) 16.5 % (21.0-51.0); MEAN CORPUSCULAR HEMOGLOBIN 27.6 pg (27.0-34.0); MEAN CORPUSCULAR HGB CONC 34.4 g/dL (33.0-35.0); MEAN CORPUSCULAR VOLUME 80.4 fL (80.0-100.0); MEAN PLATELET VOLUME 7.1 fL (7.4-11.0); MONOCYTES # (AUTO) 0.6 x10^3/uL (0.3-0.8); MONOCYTES % (AUTO) 4.2 % (0.0-13.0); NEUTROPHILS # (AUTO) 11.5 x10^3/uL (2.2-4.8); NEUTROPHILS % (AUTO) 78.2 % (42.0-75.0); PLATELET COUNT 200 X10^3/uL (150.0-450.0); RED BLOOD COUNT 4.58 X10^6/uL (4.7-6.0); RED CELL DISTRIBUTION WIDTH 15.4 % (11.6-16.5); WHITE BLOOD COUNT 14.7 X10^3/uL (3.6-10.0)
--- NOTE | 2018-12-19 06:46 | RAD ---
HISTORY: Shortness of breath Study: Chest AP portable Comparison: 12/18/2018 Findings: There is a port present on the right. The heart is within normal limits in size. The ariadna are normal. The lungs are hyperinflated but free of acute infiltrates. No pleural effusions are identified. The bony thorax is unremarkable. IMPRESSION: Lungs remain hyperinflated but clear Reported By:
[2018-12-19 06:48] LABS: PLATELET MORPHOLOGY COMMENT NORMAL (NORMAL); POIKILOCYTOSIS SLIGHT
[2018-12-19] MEDS: MILK OF MAGNESIA PO SCH ×4 (08:31→21:27)
[2018-12-19] MEDS: COLACE CAP 100 MG PO SCH ×2 (08:32→21:27)
[2018-12-19] MEDS: POTASSIUM CHL 60 MEQ/NS 0.45% 500 ML IV PRN (08:34)
[2018-12-19] MEDS: DUONEB 0.5 MG/3 MG NEB SCH ×4 (09:32→20:37)
[2018-12-19 10:57] LABS: ABG BASE EXCESS -1.8 mmol/L (-2.0-2.0); ABG HCO3 19.6 mmol/L (22-26)
[2018-12-19 10:58] LABS: ABG ALLEN TEST POS
[2018-12-19] MEDS: LEVSIN/MAALOX/LIDOC VISC PO SCH ×4 (11:33→21:25)
[2018-12-19] MEDS: PEPCID 20 MG IV PREMIX* 20 MG/50 ML BAG IV SCH ×2 (11:33→21:28)
[2018-12-19] MEDS: PROTONIX INJ 40 MG VIAL IVP SCH ×2 (11:33→21:28)
[2018-12-19] MEDS ORDERED: PHARMACY COMMENT IV NR (13:30)
[2018-12-19 14:19] LABS: CREATININE 0.82 mg/dL (0.70-1.30); VANCOMYCIN,TROUGH 11.8 ug/mL (15-20)
--- NOTE | 2018-12-19 21:13 | PCM.PROG ---
Progress Note - Progress Note for Day of Date of Exam: 12/18/18 - Subjective Subjective: WAS ADMITTED FOR DKA, ACUTE DEHYDRATION, LEUKOCYTOSIS, SEPSIS, AND RENAL FAILURE. TODAY, HE IS LYING IN BED WITH EYES CLOSED ON MORNING ROUNDS. HE OPENS EYES TO VERBAL STIMULI. HE CONTINUES WITH WEAKNESS, ABDOMINAL PAIN, AND NAUSEA TODAY. HE ALSO REPORTS SHORTNESS OF BREATH. ON EXAMINATION, HE CONTINUES TO BE TACHYCARDIC WITH HR IN THE 140s. LUNGS ARE NOTED WITH DIMINISHED LUNG SOUNDS THROUGHOUT. ABDOMEN IS FLAT, SOFT, AND NOTED WITH DIFFUSE TENDERNESS. HYPOACTIVE BOWEL SOUNDS ARE NOTED. HIS VITALS THIS MORNING ARE 98.7-964-50-100%-159/93. LABS WERE OBTAINED. ABNORMAL LAB VALUES INCLUDE THE FOLLOWING: WBC 17.3, RBC 4.43, HGB 12.3, HCT 39.0, SODIUM 135, CHLORIDE 97, CARBON DIOXIDE 5.8, GLUCOSE 528, ALT 8. TODAYS ABG REVEALED: PH 7.330, PC02 11.0, P02 125.0, HC03 5.8, 02 SATURATION 99.0, BASE EXCESS -17.2. BLOOD CULTURES ARE PENDING. WE OBTAINED AN ABDOMEN/PELVIS CT WITH CONTRAST YESTERDAY. IT REVEALED: Subsegmental atelectasis in the posterior basilar segment of the right lower lobe. Mild fatty infiltration of the liver. Probable constipation. CHEST CT REVEALED: Subsegmental atelectasis in the posterior basilar segment of the right lower lobe multifocal areas of minimal pneumonitis versus scarring in the superior segment of the right lower lobe and in the right upper lobe, both peripherally. HE IS CURRENTLY RECEIVING NORMAL SALINE AT 125ML/HR, IV VANCOMYCIN, IV ZOSYN, AND HUMULIN R SLIDING SCALE. TODAY, ADD TWO AMPS OF BICARB TO IV FLUIDS AND INCREASE TO 200ML/HR. WE WILL CHANGE INSULIN TO AN INSULIN DRIP. OTHERWISE, WE WILL FOLLOW UP WITH AM LABS AND ABG AND CONTINUE TO MONITOR. - Past Medical Family Social History Past Med/Fam/Surg Hx: No changes since H&P Allergies: Allergies No Known Drug Allergies Allergy (Verified 11/03/18 01:58) - Review of Systems ROS: No change since H&P - Vital Signs and I&O's Vital Signs: Temperature 98.7 F Pulse Rate [Left Brachial] 149 Pulse Rate 123 Respiratory Rate 21 Blood Pressure [Left Arm] 125/59 Blood Pressure [Right Arm] 132/81 Blood Pressure 173/110 O2 Sat by Pulse Oximetry 100 Intake and Output: Intake & Output 12/17/18 12/18/18 12/19/18 12/20/18 11:59 11:59 11:59 11:59 Intake Total 7149 / 7149 5800 / 5800 4252 / 4252 3033 / 3033 Output Total 5325 / 5325 7800 / 7800 3950 / 3950 2575 / 2575 Balance 1824 / 1824 -1999 / 302 / 302 458 / 458 - Physical Exam Oriented: Normal Eyes: Normal Ear: Normal Nose: Normal Throat: Normal Respiratory: Generalized, Diminished Cardiovascular: Tachycardia. negative: S3, S4, Murmur : Normal Auscultation: Bowel Sounds: Decreased Palpation: Normal Tenderness: Diffuse, Severe. negative: Rebound, Guarding, Rigidity Skin: Decreased Turgur Musculoskeletal: Normal Psychiatric: Normal Mood Description: Calm Affect: Normal Speech Pattern: Clear, Appropriate - Laboratory and Diagnostics Result Diagrams: 12/19/18 06:00 12/19/18 17:34 Labs: 12/18/18 12:00 Sputum - Expectorated Sputum Sputum Culture - Preliminary 12/18/18 12:00 Sputum - Expectorated Sputum - Final 12/16/18 20:35 Blood Blood Culture - Preliminary 12/16/18 20:30 Blood Blood Culture - Preliminary 12/16/18 07:35 Blood Blood Culture - Preliminary 12/16/18 07:28 Blood Blood Culture - Preliminary Laboratory WBC 14.7 X10^3/uL (3.6-10.0) H 12/19/18 06:00 RBC 4.58 X10^6/uL (4.7-6.0) L 12/19/18 06:00 Hgb 12.6 g/dL (13.5-18.0) L 12/19/18 06:00 Hct 36.8 % (42.0-54.0) L 12/19/18 06:00 MCV 80.4 fL (80.0-100.0) 12/19/18 06:00 MCH 27.6 pg (27.0-34.0) 12/19/18 06:00 MCHC 34.4 g/dL (33.0-35.0) 12/19/18 06:00 RDW 15.4 % (11.6-16.5) 12/19/18 06:00 Plt Count 200 X10^3/uL (150.0-450.0) 12/19/18 06:00 Plt Count Comment Adequate (ADEQUATE) 12/19/18 06:00 MPV 7.1 fL (7.4-11.0) L 12/19/18 06:00 Neut % (Auto) 78.2 % (42.0-75.0) H 12/19/18 06:00 Lymph % (Auto) 16.5 % (21.0-51.0) L 12/19/18 06:00 [place] % (Auto) 4.2 % (0.0-13.0) 12/19/18 06:00 Eos % (Auto) 0.0 % (0.9-2.9) L 12/19/18 06:00 Baso % (Auto) 1.1 % (0.2-1.0) H 12/19/18 06:00 Neut # (Auto) 11.5 x10^3/uL (2.2-4.8) H 12/19/18 06:00 Lymph # (Auto) 2.4 X10^3/uL (1.3-2.9) 12/19/18 06:00 [place] # (Auto) 0.6 x10^3/uL (0.3-0.8) 12/19/18 06:00 Eos # (Auto) 0.0 x10^3/uL (0.0-0.2) 12/19/18 06:00 Baso # (Auto) 0.2 X10^3/uL (0.0-0.1) H 12/19/18 06:00 Absolute Nucleated RBC 0.1 /100WBC 12/19/18 06:00 Total Counted 100 12/17/18 05:20 Neutrophils % (Manual) 86 % (39-76) H 12/17/18 05:20 Band Neutrophils % 2 % (0-10) 12/16/18 06:35 Lymphocytes % (Manual) 10 % (13-43) L 12/17/18 05:20 Monocytes % (Manual) 4 % (4-9) 12/17/18 05:20 Plt Clumps, EDTA Rare 12/19/18 06:00 Plt Morphology Comment Normal (NORMAL) 12/19/18 06:00 RBC Morphology Abnormal (NORMAL) 12/19/18 06:00 Poikilocytosis Slight A 12/19/18 06:00 PT 14.9 SECONDS (11.8-14.3) 12/16/18 13:00 INR Target Range - 12/16/18 13:00 INR 1.21 (0.8-1.3) 12/16/18 13:00 APTT 23.1 SECONDS (22.9-36.5) 12/16/18 13:00 PTT Comment - 12/16/18 13:00 Sample Site Rr 12/19/18 10:41 ABG pH 7.520 (7.35-7.45) H 12/19/18 10:41 ABG pCO2 24.0 mmHg (35.0-45.0) L 12/19/18 10:41 ABG pO2 102.0 mmHg (80.0-100.0) H 12/19/18 10:41 ABG HCO3 19.6 mmol/L (22-26) L 12/19/18 10:41 ABG O2 Saturation 98.0 % (90-100) 12/19/18 10:41 ABG Base Excess -1.8 mmol/L (-2.0-2.0) 12/19/18 10:41 Geoff Test Pos 12/19/18 10:41 A-a Gradient 18.0 mmHg 12/19/18 10:41 FiO2 21.0 12/19/18 10:41 Blood Gas Comments Pt reece well llj 12/19/18 10:41 Sodium 143 mmol/L (136-145) 12/19/18 06:00 Corrected Sodium 145 mmol/L (136-145) 12/19/18 06:00 Potassium 2.3 mmol/L (3.5-5.1) L* 12/19/18 17:34 Chloride 103 mmol/L (98-107) 12/19/18 06:00 Carbon Dioxide 19.3 mmol/L (21-32) L 12/19/18 06:00 BUN 11 mg/dL (7-18) 12/19/18 06:00 Creatinine 0.82 mg/dL (0.70-1.30) 12/19/18 13:48 Est GFR (MDRD) Af Amer > 60 (>60) 12/19/18 06:00 Est GFR (MDRD) Non-Af > 60 (>60) 12/19/18 06:00 Glucose 288 mg/dL (65-99) H 12/19/18 14:25 Lactic Acid 1.7 mmol/L (0.4-2.0) 12/17/18 05:20 Calcium 8.3 mg/dL (8.5-10.1) L 12/19/18 06:00 Corrected Calcium 8.9 mg/dL (8.5-10.1) 12/19/18 06:00 Phosphorus 6.2 mg/dL (2.6-4.7) H 12/16/18 06:35 Magnesium 2.1 mg/dL (1.7-2.9) 12/19/18 17:34 Total Bilirubin 1.00 mg/dL (0.2-1.0) 12/19/18 06:00 AST 27 Units/L (15-37) 12/19/18 06:00 ALT 10 Units/L (12-78) L 12/19/18 06:00 Alkaline Phosphatase 82 Units/L (46-116) 12/19/18 06:00 Total Protein 7.7 g/dL (6.4-8.2) 12/19/18 06:00 Albumin 3.2 g/dL (3.4-5.0) L 12/19/18 06:00 Globulin 4.5 g/dL (2.5-4.5) 12/19/18 06:00 Albumin/Globulin Ratio 0.7 Ratio (1.1-2.1) L 12/19/18 06:00 Amylase 119 Units/L (25-115) H 12/16/18 06:35 Lipase 129 Units/L (73-393) 12/16/18 06:35 Cortisol 64.2 ug/dL 12/16/18 06:35 Specimen Type Catherized urine 12/16/18 07:16 Urine Color Pale yellow (YELLOW) 12/16/18 07:16 Urine Appearance Clear (CLEAR) 12/16/18 07:16 Urine pH 5.0 (5.0 - 8.0) 12/16/18 07:16 Ur Specific [place] 1.020 (1.000-1.030) 12/16/18 07:16 Urine Protein Negative (NEGATIVE) 12/16/18 07:16 Urine Glucose (UA) 4+ (NEGATIVE) 12/16/18 07:16 Urine Ketones 4+ (NEGATIVE) 12/16/18 07:16 Urine Occult Blood Negative (NEGATIVE) 12/16/18 07:16 Urine Nitrite Negative (NEGATIVE) 12/16/18 07:16 Urine Bilirubin Negative (NEGATIVE) 12/16/18 07:16 Urine Urobilinogen Normal (NORMAL) 12/16/18 07:16 Ur Leukocyte Esterase Negative (NEGATIVE) 12/16/18 07:16 Vancomycin Trough 11.8 ug/mL (15-20) L 12/19/18 13:48 Acetone, Semi-Quant Small (NEGATIVE) H 12/19/18 06:00 - Plan (1) DKA (diabetic ketoacidoses) Status: Acute Qualifiers: Diabetes mellitus type: type 1 Diabetes mellitus complication detail: without coma Qualified Code(s): E10.10 - Type 1 diabetes mellitus with ketoacidosis without coma Plan: HUMULIN R DRIP, IV FLUIDS, MONITOR OTBS, CONTINUE TO MONITOR (2) Sepsis Status: Acute Qualifiers: Sepsis type: sepsis due to unspecified organism Sepsis acute organ dysfunct ion status: with acute organ dysfunction Severe sepsis acute organ dysfunction type: acute renal failure Acute renal failure type: with acute tubular necrosis Severe sepsis shock status: unspecified Qualified Code(s): A41.9 - Sepsis, unspecified organism; R65.20 - Severe sepsis without septic shock; N17.0 - Acute kidney failure with tubular necrosis Plan: IV ZOSYN, IV VANCOMYCIN, IV FLUIDS, CONTINUE TO MONITOR (3) Pneumonia Status: Acute Qualifiers: Pneumonia type: due to unspecified organism Laterality: right Lung location: lower lobe of lung Qualified Code(s): J18.1 - Lobar pneumonia, uns pecified organism Plan: IV FLUIDS, IV ANTIBIOTICS, CONTINUE TO MONITOR (4) Dehydration Status: Acute Plan: IV FLUIDS, CONTINUE TO MONITOR (5) Renal failure Status: Acute Qualifiers: Renal failure chronicity: acute Plan: NORMAL SALINE, CONTINUE TO MONITOR
[2018-12-19] MEDS: SNACK - Diabetic Appropriate PO SCH (21:41)
[2018-12-19] MEDS: SODIUM BICARBONATE 8.4% IV SCH ×2 (21:42)
[2018-12-19] MEDS: KCL IV SCH ×2 (21:42)
[2018-12-19] MEDS: NS IV SCH ×2 (21:42)
[2018-12-19] MEDS ORDERED: NORMODYNE INJ 100 MG VIAL ONE (22:16)
[2018-12-19] MEDS: NORMODYNE INJ 20 MG VIAL IV PRN (22:19)
[2018-12-19] MEDS ORDERED: CATAPRES TAB 0.1 MG PO ONE (23:50)
[2018-12-19] MEDS ORDERED: CATAPRES TAB 0.1 MG ONE (23:54)
[2018-12-20] MEDS: MORPHINE SULFATE INJ 2 MG INJ IVP PRN ×6 (00:34→21:01)
[2018-12-20] MEDS ORDERED: NS + KCL 20 MEQ/L 1,000 ML ONE ×2 (01:49→06:20)
[2018-12-20] MEDS: SODIUM BICARBONATE 8.4% IV SCH ×4 (02:03→05:04)
[2018-12-20] MEDS: KCL IV SCH ×4 (02:03→05:04)
[2018-12-20] MEDS: NS IV SCH ×4 (02:03→05:04)
[2018-12-20] MEDS: VANCOMYCIN HCL 1 GM VIAL 1 G in NS 250 ML IV 250 ML IV SCH ×3 (05:04→21:08)
[2018-12-20] MEDS: ZOSYN VIAL 3.375 GRAMS 3.375 G in NS 100 ML IV + SPIKE MINIBAG* 100 ML IV SCH ×3 (05:05→21:09)
--- NOTE | 2018-12-20 05:34 | RAD ---
Chest, 1 view Indication: Shortness of breath Comparison: 12/19/2018 Findings: Cardiac silhouette is unremarkable. Right subclavian approach Port-A-Cath is unchanged. The lungs are clear. No pleural effusion or pneumothorax. Impression: No acute chest process or significant change from prior. Reported By:
[2018-12-20 05:41] LABS: BASOPHILS % (AUTO) 0.1 % (0.2-1.0); EOSINOPHILS % (AUTO) 0.1 % (0.9-2.9); HEMOGLOBIN 11.4 g/dL (13.5-18.0); LYMPHOCYTES # (AUTO) 1.7 X10^3/uL (1.3-2.9); LYMPHOCYTES % (AUTO) 20.6 % (21.0-51.0); MEAN CORPUSCULAR HEMOGLOBIN 27.5 pg (27.0-34.0); MEAN CORPUSCULAR HGB CONC 34.6 g/dL (33.0-35.0); MEAN CORPUSCULAR VOLUME 79.5 fL (80.0-100.0); MEAN PLATELET VOLUME 7.5 fL (7.4-11.0); MONOCYTES # (AUTO) 0.6 x10^3/uL (0.3-0.8); MONOCYTES % (AUTO) 7.3 % (0.0-13.0); NEUTROPHILS # (AUTO) 6.1 x10^3/uL (2.2-4.8); NEUTROPHILS % (AUTO) 71.9 % (42.0-75.0); PLATELET COUNT 169 X10^3/uL (150.0-450.0); RED BLOOD COUNT 4.15 X10^6/uL (4.7-6.0); RED CELL DISTRIBUTION WIDTH 15.2 % (11.6-16.5); WHITE BLOOD COUNT 8.5 X10^3/uL (3.6-10.0)
[2018-12-20 05:52] LABS: ABG BASE EXCESS 14.7 mmol/L (-2.0-2.0)
[2018-12-20 05:53] LABS: ABG ALLEN TEST POS
[2018-12-20 06:00] LABS: ALANINE AMINOTRANSFERASE 11 Units/L (12-78); ALBUMIN 2.9 g/dL (3.4-5.0); ALKALINE PHOSPHATASE 72 Units/L (46-116); ASPARTATE AMINO TRANSFERASE 28 Units/L (15-37); BLOOD UREA NITROGEN 5 mg/dL (7-18); CALCIUM 7.4 mg/dL (8.5-10.1); CARBON DIOXIDE 29.8 mmol/L (21-32); CHLORIDE 100 mmol/L (98-107); COR CA(FOR HYPOALB) 8.3 mg/dL (8.5-10.1); COR NA(FOR HYPERGLY) 142 mmol/L (136-145); CREATININE 0.66 mg/dL (0.70-1.30); SODIUM 141 mmol/L (136-145); TOTAL PROTEIN 6.8 g/dL (6.4-8.2); eGFR NON BLACK RACES > 60 (>60)
[2018-12-20 06:11] LABS: PLATELET MORPHOLOGY COMMENT NORMAL (NORMAL); POIKILOCYTOSIS SLIGHT
[2018-12-20 06:17] LABS: SERUM ACETONE SMALL (NEGATIVE)
[2018-12-20] MEDS: NS + KCL 20 MEQ/L 1,000 ML IV SCH ×5 (06:31→20:54)
[2018-12-20] MEDS: DUONEB 0.5 MG/3 MG NEB SCH ×4 (08:32→20:28)
[2018-12-20] MEDS: LEVSIN/MAALOX/LIDOC VISC PO SCH ×4 (08:51→20:14)
[2018-12-20] MEDS: COLACE CAP 100 MG PO SCH ×2 (08:51→20:13)
[2018-12-20] MEDS: PEPCID 20 MG IV PREMIX* 20 MG/50 ML BAG IV SCH ×2 (08:52→20:14)
[2018-12-20] MEDS: MILK OF MAGNESIA PO SCH ×4 (08:52→20:13)
[2018-12-20] MEDS: PROTONIX INJ 40 MG VIAL IVP SCH ×2 (08:53→20:14)
[2018-12-20] MEDS ORDERED: K-DUR TAB 20 MEQ PO SCH (09:00)
[2018-12-20] MEDS: POTASSIUM CHLORIDE LIQ 20 MEQ UDC PO SCH ×2 (09:00→20:12)
[2018-12-20] MEDS: ZOFRAN INJ 4 MG VIAL IVP PRN (09:00)
[2018-12-20] MEDS ORDERED: NS 250 ML IV 250 ML ONE (09:12)
[2018-12-20] MEDS: TYLENOL 325 MG TAB PO PRN (12:16)
[2018-12-20] MEDS ORDERED: PHARMACY COMMENT IV NR (13:30)
[2018-12-20 14:50] LABS: CREATININE 0.54 mg/dL (0.70-1.30); VANCOMYCIN,TROUGH 8.1 ug/mL (15-20)
[2018-12-20] MEDS: SNACK - Diabetic Appropriate PO SCH (20:26)
--- NOTE | 2018-12-20 20:59 | PCM.PROG ---
Progress Note - Progress Note for Day of Date of Exam: 12/19/18 - Subjective Subjective: WAS ADMITTED FOR DKA, ACUTE DEHYDRATION, LEUKOCYTOSIS, SEPSIS, AND RENAL FAILURE. TODAY, HE IS LYING IN BED WITH EYES CLOSED ON MORNING ROUNDS. HE OPENS EYES TO VERBAL STIMULI. HE CONTINUES WITH WEAKNESS, ABDOMINAL PAIN, SHORTNESS OF BREATH, AND NAUSEA TODAY. ON EXAMINATION, HE CONTINUES TO BE TACHYCARDIC WITH HR IN THE 130s. LUNGS ARE NOTED WITH DIMINISHED LUNG SOUNDS THROUGHOUT. ABDOMEN IS FLAT, SOFT, AND NOTED WITH DIFFUSE TENDERNESS. HYPOACTIVE BOWEL SOUNDS ARE NOTED. HIS VITALS THIS MORNING ARE 98.3-612-70-100%-156/114. LABS WERE OBTAINED. ABNORMAL LAB VALUES INCLUDE THE FOLLOWING: WBC 14.7, RBC 4.58, HGB 12.6, HCT 36.8, POTASSIUM 2.1, CARBON DIOXIDE 19.3, GLUCOSE 171, CA LCIUM 8.3, ALT 10, ALBUMIN 3.2, ACETONES SMALL. A BLOOD GAS WAS OBTAINED TODAY AND REVEALED: PH 7.520, PC02 24.0, P02 102.0, HC03 19.6, 02 SATURATION 98.0, BASE EXCESS -1.8. BLOOD CULTURES ARE PENDING. WE OBTAINED A CHEST XRAY TODAY. IT REVEALED: Lungs remain hyperinflated but clear. HE IS CURRENTLY RECEIVING IV VANCOMYCIN, IV ZOSYN, AND HUMULIN R SLIDING SCALE, NORMAL SALINE WITH 20MEQ KCL WITH TWO AMPS OF BICARB AT 200ML/HR, AND AN INSULIN DRIP. TODAY, WE WILL START PEPCID, PROTONIX, AND GI COCKTAIL, AND A ZOFRAN COCKTAIL. OTHERWISE, WE WILL FOLLOW UP WITH AM LABS AND ABG AND CONTINUE TO MONITOR. - Past Medical Family Social History Past Med/Fam/Surg Hx: No changes since H&P Allergies: Allergies No Known Drug Allergies Allergy (Verified 11/03/18 01:58) - Review of Systems ROS: No change since H&P - Vital Signs and I&O's Vital Signs: Temperature 99.6 F Pulse Rate [Left Brachial] 105 Pulse Rate 97 Respiratory Rate 16 Blood Pressure [Left Arm] 166/107 Blood Pressure [Right Arm] 132/81 Blood Pressure 141/92 O2 Sat by Pulse Oximetry 100 Intake and Output: Intake & Output 12/18/18 12/19/18 12/20/18 12/21/18 11:59 11:59 11:59 11:59 Intake Total 5800 / 5800 4252 / 4252 6231 / 6231 2899 / 2899 Output Total 7800 / 7800 3950 / 3950 5475 / 5475 2450 / 2450 Balance -1999 / -1999 302 / 302 756 / 756 449 / 449 - Physical Exam Oriented: Normal Eyes: Normal Ear: Normal Nose: Normal Throat: Normal Respiratory: Generalized, Diminished Cardiovascular: Tachycardia. negative: S3, S4, Murmur : Normal Auscultation: Bowel Sounds: Decreased Palpation: Normal Tenderness: Diffuse, Severe. negative: Rebound, Guarding, Rigidity Skin: Decreased Turgur Musculoskeletal: Normal Psychiatric: Normal Mood Description: Calm Affect: Normal Speech Pattern: Clear, Delayed - Laboratory and Diagnostics Result Diagrams: 12/20/18 04:38 12/20/18 14:30 Labs: 12/18/18 12:00 Sputum - Expectorated Sputum Sputum Culture - Final 12/18/18 12:00 Sputum - Expectorated Sputum - Final 12/16/18 20:35 Blood Blood Culture - Preliminary 12/16/18 20:30 Blood Blood Culture - Preliminary 12/16/18 07:35 Blood Blood Culture - Preliminary 12/16/18 07:28 Blood Blood Culture - Preliminary Laboratory WBC 8.5 X10^3/uL (3.6-10.0) 12/20/18 04:38 RBC 4.15 X10^6/uL (4.7-6.0) L 12/20/18 04:38 Hgb 11.4 g/dL (13.5-18.0) L 12/20/18 04:38 Hct 33.0 % (42.0-54.0) L 12/20/18 04:38 MCV 79.5 fL (80.0-100.0) L 12/20/18 04:38 MCH 27.5 pg (27.0-34.0) 12/20/18 04:38 MCHC 34.6 g/dL (33.0-35.0) 12/20/18 04:38 RDW 15.2 % (11.6-16.5) 12/20/18 04:38 Plt Count 169 X10^3/uL (150.0-450.0) 12/20/18 04:38 Plt Count Comment Adequate (ADEQUATE) 12/20/18 04:38 MPV 7.5 fL (7.4-11.0) 12/20/18 04:38 Neut % (Auto) 71.9 % (42.0-75.0) 12/20/18 04:38 Lymph % (Auto) 20.6 % (21.0-51.0) L 12/20/18 04:38 [place] % (Auto) 7.3 % (0.0-13.0) 12/20/18 04:38 Eos % (Auto) 0.1 % (0.9-2.9) L 12/20/18 04:38 Baso % (Auto) 0.1 % (0.2-1.0) L 12/20/18 04:38 Neut # (Auto) 6.1 x10^3/uL (2.2-4.8) H 12/20/18 04:38 Lymph # (Auto) 1.7 X10^3/uL (1.3-2.9) 12/20/18 04:38 [place] # (Auto) 0.6 x10^3/uL (0.3-0.8) 12/20/18 04:38 Eos # (Auto) 0.0 x10^3/uL (0.0-0.2) 12/20/18 04:38 Baso # (Auto) 0.0 X10^3/uL (0.0-0.1) 12/20/18 04:38 Absolute Nucleated RBC 0.0 /100WBC 12/20/18 04:38 Total Counted 100 12/17/18 05:20 Neutrophils % (Manual) 86 % (39-76) H 12/17/18 05:20 Band Neutrophils % 2 % (0-10) 12/16/18 06:35 Lymphocytes % (Manual) 10 % (13-43) L 12/17/18 05:20 Monocytes % (Manual) 4 % (4-9) 12/17/18 05:20 Plt Clumps, EDTA Rare 12/19/18 06:00 Plt Morphology Comment Normal (NORMAL) 12/20/18 04:38 RBC Morphology Abnormal (NORMAL) 12/20/18 04:38 Poikilocytosis Slight A 12/20/18 04:38 PT 14.9 SECONDS (11.8-14.3) 12/16/18 13:00 INR Target Range - 12/16/18 13:00 INR 1.21 (0.8-1.3) 12/16/18 13:00 APTT 23.1 SECONDS (22.9-36.5) 12/16/18 13:00 PTT Comment - 12/16/18 13:00 Sample Site Rrad 12/20/18 05:47 ABG pH 7.620 (7.35-7.45) H* 12/20/18 05:47 ABG pCO2 36.0 mmHg (35.0-45.0) 12/20/18 05:47 ABG pO2 87.0 mmHg (80.0-100.0) 12/20/18 05:47 ABG HCO3 37.0 mmol/L (22-26) H* 12/20/18 05:47 ABG O2 Saturation 98.0 % (90-100) 12/20/18 05:47 ABG Base Excess 14.7 mmol/L (-2.0-2.0) H 12/20/18 05:47 Geoff Test Pos 12/20/18 05:47 A-a Gradient 18.0 mmHg 12/20/18 05:47 FiO2 21.0 12/20/18 05:47 Blood Gas Comments Marva abg well-mtf 12/20/18 05:47 Sodium 141 mmol/L (136-145) 12/20/18 04:38 Corrected Sodium 142 mmol/L (136-145) 12/20/18 04:38 Potassium 2.2 mmol/L (3.5-5.1) L* 12/20/18 04:38 Chloride 100 mmol/L (98-107) 12/20/18 04:38 Carbon Dioxide 29.8 mmol/L (21-32) 12/20/18 04:38 BUN 5 mg/dL (7-18) L 12/20/18 04:38 Creatinine 0.54 mg/dL (0.70-1.30) L 12/20/18 14:30 Est GFR (MDRD) Af Amer > 60 (>60) 12/20/18 04:38 Est GFR (MDRD) Non-Af > 60 (>60) 12/20/18 04:38 Glucose 144 mg/dL (65-99) H 12/20/18 04:38 POC Glucose (mg/dL) 143 mg/dL (65-99) H 12/20/18 20:24 Lactic Acid 1.7 mmol/L (0.4-2.0) 12/17/18 05:20 Calcium 7.4 mg/dL (8.5-10.1) L 12/20/18 04:38 Corrected Calcium 8.3 mg/dL (8.5-10.1) L 12/20/18 04:38 Phosphorus 6.2 mg/dL (2.6-4.7) H 12/16/18 06:35 Magnesium 2.1 mg/dL (1.7-2.9) 12/19/18 17:34 Total Bilirubin 1.10 mg/dL (0.2-1.0) H 12/20/18 04:38 AST 28 Units/L (15-37) 12/20/18 04:38 ALT 11 Units/L (12-78) L 12/20/18 04:38 Alkaline Phosphatase 72 Units/L (46-116) 12/20/18 04:38 Total Protein 6.8 g/dL (6.4-8.2) 12/20/18 04:38 Albumin 2.9 g/dL (3.4-5.0) L 12/20/18 04:38 Globulin 3.9 g/dL (2.5-4.5) 12/20/18 04:38 Albumin/Globulin Ratio 0.7 Ratio (1.1-2.1) L 12/20/18 04:38 Amylase 119 Units/L (25-115) H 12/16/18 06:35 Lipase 129 Units/L (73-393) 12/16/18 06:35 Cortisol 64.2 ug/dL 12/16/18 06:35 Specimen Type Catherized urine 12/16/18 07:16 Urine Color Pale yellow (YELLOW) 12/16/18 07:16 Urine Appearance Clear (CLEAR) 12/16/18 07:16 Urine pH 5.0 (5.0 - 8.0) 12/16/18 07:16 Ur Specific [place] 1.020 (1.000-1.030) 12/16/18 07:16 Urine Protein Negative (NEGATIVE) 12/16/18 07:16 Urine Glucose (UA) 4+ (NEGATIVE) 12/16/18 07:16 Urine Ketones 4+ (NEGATIVE) 12/16/18 07:16 Urine Occult Blood Negative (NEGATIVE) 12/16/18 07:16 Urine Nitrite Negative (NEGATIVE) 12/16/18 07:16 Urine Bilirubin Negative (NEGATIVE) 12/16/18 07:16 Urine Urobilinogen Normal (NORMAL) 12/16/18 07:16 Ur Leukocyte Esterase Negative (NEGATIVE) 12/16/18 07:16 Vancomycin Trough 8.1 ug/mL (15-20) L 12/20/18 14:30 Acetone, Semi-Quant Small (NEGATIVE) H 12/20/18 04:38 - Plan (1) DKA (diabetic ketoacidoses) Status: Acute Qualifiers: Diabetes mellitus type: type 1 Diabetes mellitus complication detail: without coma Qualified Code(s): E10.10 - Type 1 diabetes mellitus with ketoacidosis without coma Plan: HUMULIN R DRIP, IV FLUIDS, MONITOR OTBS, CONTINUE TO MONITOR (2) Sepsis Status: Acute Qualifiers: Sepsis type: sepsis due to unspecified organism Sepsis acute organ dysfunction status: with acute organ dysfunction Severe sepsis acute organ dysfunction type: acute renal failure Acute renal failure type: with acute tubular necrosis Severe sepsis shock status: unspecified Qualified Code(s): A41.9 - Sepsis, unspecified organism; R65.20 - Severe sepsis without septic shock; N17.0 - Acute kidney failure with tubular necrosis Plan: IV ZOSYN, IV VANCOMYCIN, IV FLUIDS, CONTINUE TO MONITOR (3) Pneumonia Status: Acute Qualifiers: Pneumonia type: due to unspecified organism Laterality: right Lung location: lower lobe of lung Qualified Code(s): J18.1 - Lobar pneumonia, unspecified organism Plan: IV FLUIDS, IV ANTIBIOTICS, CONTINUE TO MONITOR (4) Dehydration Status: Acute Plan: IV FLUIDS, CONTINUE TO MONITOR (5) Renal failure Status: Acute Qualifiers: Renal failure chronicity: acute Plan: NORMAL SALINE, CONTINUE TO MONITOR
[2018-12-21] MEDS: NS + KCL 20 MEQ/L 1,000 ML IV SCH ×7 (00:01→22:31)
[2018-12-21] MEDS: MORPHINE SULFATE INJ 2 MG INJ IVP PRN ×6 (01:30→22:05)
[2018-12-21] MEDS: ZOSYN VIAL 3.375 GRAMS 3.375 G in NS 100 ML IV + SPIKE MINIBAG* 100 ML IV SCH ×3 (05:37→21:00)
[2018-12-21] MEDS: VANCOMYCIN HCL 1 GM VIAL 1 G in NS 250 ML IV 250 ML IV SCH ×3 (05:37→21:01)
[2018-12-21 05:38] LABS: ABG BASE EXCESS 8.7 mmol/L (-2.0-2.0)
[2018-12-21 05:39] LABS: ABG HCO3 31.3 mmol/L (22-26)
[2018-12-21 05:51] LABS: BASOPHILS % (AUTO) 0.1 % (0.2-1.0); EOSINOPHILS % (AUTO) 0.4 % (0.9-2.9); HEMATOCRIT 28.5 % (42.0-54.0); HEMOGLOBIN 9.8 g/dL (13.5-18.0); LYMPHOCYTES # (AUTO) 2.1 X10^3/uL (1.3-2.9); LYMPHOCYTES % (AUTO) 29.9 % (21.0-51.0); MEAN CORPUSCULAR HEMOGLOBIN 27.4 pg (27.0-34.0); MEAN CORPUSCULAR HGB CONC 34.6 g/dL (33.0-35.0); MEAN CORPUSCULAR VOLUME 79.3 fL (80.0-100.0); MONOCYTES # (AUTO) 0.7 x10^3/uL (0.3-0.8); MONOCYTES % (AUTO) 9.7 % (0.0-13.0); NEUTROPHILS # (AUTO) 4.2 x10^3/uL (2.2-4.8); NEUTROPHILS % (AUTO) 59.9 % (42.0-75.0); PLATELET COUNT 150 X10^3/uL (150.0-450.0); RED BLOOD COUNT 3.59 X10^6/uL (4.7-6.0); RED CELL DISTRIBUTION WIDTH 15.3 % (11.6-16.5); WHITE BLOOD COUNT 7.1 X10^3/uL (3.6-10.0)
[2018-12-21 06:14] LABS: ALANINE AMINOTRANSFERASE 8 Units/L (12-78); ALBUMIN 2.5 g/dL (3.4-5.0); ALKALINE PHOSPHATASE 63 Units/L (46-116); ASPARTATE AMINO TRANSFERASE 24 Units/L (15-37); BLOOD UREA NITROGEN 2 mg/dL (7-18); CALCIUM 7.4 mg/dL (8.5-10.1); CARBON DIOXIDE 26.1 mmol/L (21-32); CHLORIDE 103 mmol/L (98-107); COR CA(FOR HYPOALB) 8.6 mg/dL (8.5-10.1); COR NA(FOR HYPERGLY) 139 mmol/L (136-145); CREATININE 0.44 mg/dL (0.70-1.30); SODIUM 138 mmol/L (136-145); TOTAL PROTEIN 5.8 g/dL (6.4-8.2); eGFR NON BLACK RACES > 60 (>60)
[2018-12-21 06:15] LABS: HYPOCHROMASIA SLIGHT; PLATELET MORPHOLOGY COMMENT NORMAL (NORMAL)
[2018-12-21 06:18] LABS: SERUM ACETONE NEGATIVE (NEGATIVE)
[2018-12-21] MEDS: MAGNESIUM SULFATE 1 GRAM/100 mL PREMIX 1 GM/100 ML BAG IV PRN ×2 (07:42→09:35)
[2018-12-21] MEDS: DUONEB 0.5 MG/3 MG NEB SCH ×5 (08:37→20:11)
[2018-12-21] MEDS: MILK OF MAGNESIA PO SCH ×4 (08:53→20:41)
[2018-12-21] MEDS: LEVSIN/MAALOX/LIDOC VISC PO SCH ×4 (08:54→20:41)
[2018-12-21] MEDS: PEPCID 20 MG IV PREMIX* 20 MG/50 ML BAG IV SCH ×2 (08:55→20:37)
[2018-12-21] MEDS: PROTONIX INJ 40 MG VIAL IVP SCH ×2 (08:55→20:44)
[2018-12-21] MEDS: COLACE CAP 100 MG PO SCH ×2 (08:55→20:56)
[2018-12-21] MEDS ORDERED: LINACLOTIDE 290 MCG PO SCH (17:30)
[2018-12-21] MEDS ORDERED: LINZESS PO ONE (17:42)
[2018-12-21] MEDS ORDERED: LEVEMIR SC SCH (18:00)
[2018-12-21] MEDS: XANAX PO PRN (20:39)
[2018-12-21] MEDS: LOPRESSOR TAB 25 MG PO SCH (20:40)
[2018-12-21] MEDS: REMERON PO SCH (20:57)
[2018-12-21] MEDS: LEVEMIR SC SCH (20:58)
[2018-12-21] MEDS: SNACK - Diabetic Appropriate PO SCH (21:00)
[2018-12-22] MEDS: NORMODYNE INJ 20 MG VIAL IV PRN ×2 (00:17→00:55)
[2018-12-22] MEDS ORDERED: CATAPRES TAB 0.1 MG ONE (02:07)
[2018-12-22] MEDS: NS + KCL 20 MEQ/L 1,000 ML IV SCH ×5 (02:13→23:19)
[2018-12-22] MEDS: CATAPRES TAB 0.1 MG PO PRN ×2 (02:13→22:16)
[2018-12-22 04:13] LABS: ABG BASE EXCESS 4.3 mmol/L (-2.0-2.0); ABG HCO3 26.9 mmol/L (22-26)
[2018-12-22] MEDS: ZOSYN VIAL 3.375 GRAMS 3.375 G in NS 100 ML IV + SPIKE MINIBAG* 100 ML IV SCH ×3 (05:01→21:12)
[2018-12-22] MEDS: MORPHINE SULFATE INJ 2 MG INJ IVP PRN ×2 (05:01→21:23)
[2018-12-22] MEDS: VANCOMYCIN HCL 1 GM VIAL 1 G in NS 250 ML IV 250 ML IV SCH ×3 (05:01→21:53)
[2018-12-22 05:16] LABS: BASOPHILS % (AUTO) 0.3 % (0.2-1.0); EOSINOPHILS # (AUTO) 0.1 x10^3/uL (0.0-0.2); EOSINOPHILS % (AUTO) 1.6 % (0.9-2.9); HEMATOCRIT 29.8 % (42.0-54.0); HEMOGLOBIN 10.1 g/dL (13.5-18.0); LYMPHOCYTES # (AUTO) 2.4 X10^3/uL (1.3-2.9); LYMPHOCYTES % (AUTO) 32.3 % (21.0-51.0); MEAN CORPUSCULAR HEMOGLOBIN 27.6 pg (27.0-34.0); MEAN CORPUSCULAR VOLUME 81.1 fL (80.0-100.0); MEAN PLATELET VOLUME 7.8 fL (7.4-11.0); MONOCYTES # (AUTO) 0.6 x10^3/uL (0.3-0.8); MONOCYTES % (AUTO) 8.5 % (0.0-13.0); NEUTROPHILS # (AUTO) 4.2 x10^3/uL (2.2-4.8); NEUTROPHILS % (AUTO) 57.3 % (42.0-75.0); PLATELET COUNT 200 X10^3/uL (150.0-450.0); RED BLOOD COUNT 3.67 X10^6/uL (4.7-6.0); RED CELL DISTRIBUTION WIDTH 15.8 % (11.6-16.5); WHITE BLOOD COUNT 7.4 X10^3/uL (3.6-10.0)
[2018-12-22 05:21] LABS: SERUM ACETONE NEGATIVE (NEGATIVE)
[2018-12-22 05:32] LABS: HYPOCHROMASIA SLIGHT; PLATELET MORPHOLOGY COMMENT NORMAL (NORMAL)
[2018-12-22 05:39] LABS: ALANINE AMINOTRANSFERASE 11 Units/L (12-78); ALBUMIN 2.8 g/dL (3.4-5.0); ALKALINE PHOSPHATASE 69 Units/L (46-116); ASPARTATE AMINO TRANSFERASE 21 Units/L (15-37); BLOOD UREA NITROGEN 4 mg/dL (7-18); CALCIUM 7.9 mg/dL (8.5-10.1); CARBON DIOXIDE 25.9 mmol/L (21-32); CHLORIDE 109 mmol/L (98-107); COR CA(FOR HYPOALB) 8.9 mg/dL (8.5-10.1); CREATININE 0.58 mg/dL (0.70-1.30); MAGNESIUM 1.8 mg/dL (1.7-2.9); SODIUM 142 mmol/L (136-145); TOTAL PROTEIN 6.3 g/dL (6.4-8.2); eGFR NON BLACK RACES > 60 (>60)
[2018-12-22] MEDS ORDERED: METHADONE HCL PO ONE (07:58)
[2018-12-22] MEDS: DUONEB 0.5 MG/3 MG NEB SCH ×4 (08:13→20:07)
[2018-12-22] MEDS: COLACE CAP 100 MG PO SCH ×2 (08:35→21:06)
[2018-12-22] MEDS: PEPCID 20 MG IV PREMIX* 20 MG/50 ML BAG IV SCH ×2 (08:35→21:11)
[2018-12-22] MEDS: LINZESS PO SCH (08:35)
[2018-12-22] MEDS: LOPRESSOR TAB 25 MG PO SCH ×2 (08:35→21:10)
[2018-12-22] MEDS: METHADONE HCL PO SCH ×2 (08:36→21:11)
[2018-12-22] MEDS: PROTONIX INJ 40 MG VIAL IVP SCH ×2 (08:37→20:51)
[2018-12-22] MEDS: K-DUR TAB 20 MEQ PO PRN (08:37)
[2018-12-22] MEDS: LEVEMIR SC SCH ×2 (08:38→21:06)
[2018-12-22] MEDS: HumaLOG SC SCH ×4 (08:39→17:57)
[2018-12-22] MEDS: MILK OF MAGNESIA PO SCH ×4 (08:39→21:11)
[2018-12-22] MEDS: LEVSIN/MAALOX/LIDOC VISC PO SCH ×4 (08:40→21:09)
[2018-12-22] MEDS ORDERED: PHARMACY COMMENT IV NR (13:30)
[2018-12-22 14:17] LABS: CREATININE 0.63 mg/dL (0.70-1.30); VANCOMYCIN,TROUGH 11.2 ug/mL (15-20)
[2018-12-22] MEDS: SNACK - Diabetic Appropriate PO SCH (20:36)
--- NOTE | 2018-12-22 20:38 | PCM.PROG ---
Progress Note - Progress Note for Day of Date of Exam: 12/20/18 - Subjective Subjective: WAS ADMITTED FOR DKA, ACUTE DEHYDRATION, LEUKOCYTOSIS, SEPSIS, AND RENAL FAILURE. TODAY, HE IS LYING IN BED WITH EYES CLOSED ON MORNING ROUNDS. HE OPENS EYES TO VERBAL STIMULI. HE CONTINUES WITH WEAKNESS, ABDOMINAL PAIN, SHORTNESS OF BREATH, AND NAUSEA TODAY. ON EXAMINATION, HE CONTINUES TO BE TACHYCARDIC WITH HR IN THE LOWER 100s. LUNGS ARE NOTED WITH DIMINISHED LUNG SOUNDS THROUGHOUT. ABDOMEN IS FLAT, SOFT, AND NOTED 100WITH DIFFUSE TENDERNESS. HYPOACTIVE BOWEL SOUNDS ARE NOTED. HIS VITALS THIS MORNING ARE.9-924-75-99-146/96. LABS WERE OBTAINED. ABNORMAL LAB VALUES INCLUDE THE FOLLOWING: RBC 4.15, HGB 11.4, HCT 33.0, POTASSIUM 2.2, BUN 5, CREATININE 0.66, GLUCOSE 144, CALCIUM 7.4, TOTAL BILI 1.10, ALT 11, ALUBMIN 2.9. A BLOOD GAS WAS OBTAINED TODAY AND REVEALED: PH 7.620, PC02 36.0, P02 87.0, HC03 37.0, 02 SATURATION 98.0, BASE EXCESS 14.7. BLOOD CULTURES ARE PENDING. SPUTUM CULTURE PENDING. WE OBTAINED A CHEST XRAY TODAY. IT REVEALED: No acute chest process or significant change from prior. HE IS CURRENTLY RECEIVING IV VANCOMYCIN, IV ZOSYN, AND HUMULIN R SLIDING SCALE, NORMAL SALINE WITH 20MEQ KCL WITH TWO AMPS OF BICARB AT 200ML/HR, AND AN INSULIN DRIP. WE WILL CONTINUE WITH THESE AND HIS OTHER MEDICATIONS TODAY. OTHERWISE, WE WILL FOLLOW UP WITH AM LABS AND ABG AND CONTINUE TO MONITOR. - Past Medical Family Social History Past Med/Fam/Surg Hx: No changes since H&P Allergies: Allergies No Known Drug Allergies Allergy (Verified 11/03/18 01:58) - Review of Systems ROS: No change since H&P - Vital Signs and I&O's Vital Signs: Temperature 97.7 F Pulse Rate [Left Brachial] 105 Pulse Rate 105 Respiratory Rate 14 Blood Pressure [Left Arm] 166/107 Blood Pressure [Right Arm] 132/81 Blood Pressure 158/108 O2 Sat by Pulse Oximetry 100 Intake and Output: Intake & Output 12/20/18 12/21/18 12/22/18 12/23/18 11:59 11:59 11:59 11:59 Intake Total 6231 / 6231 7204 / 7204 7193 / 7193 3262 / 3262 Output Total 5475 / 5475 6180 / 6180 9160 / 9125 8990 / 4700 Balance 506 / 936 1024 / 1024 -1932 / -1932 -1438 / -1438 - Physical Exam Oriented: Normal Eyes: Normal Ear: Normal Nose: Normal Throat: Normal Respiratory: Generalized, Diminished Cardiovascular: Tachycardia. negative: S3, S4, Murmur : Normal Auscultation: Bowel Sounds: Decreased Palpation: Normal Tenderness: Diffuse, Severe. negative: Rebound, Guarding, Rigidity Skin: Decreased Turgur Musculoskeletal: Normal Psychiatric: Normal Mood Description: Calm Affect: Normal Speech Pattern: Clear, Appropriate - Laboratory and Diagnostics Result Diagrams: 12/22/18 04:03 12/22/18 13:56 Labs: 12/16/18 20:35 Blood Blood Culture - Final 12/16/18 20:30 Blood Blood Culture - Final 12/16/18 07:35 Blood Blood Culture - Final 12/16/18 07:28 Blood Blood Culture - Final 12/18/18 12:00 Sputum - Expectorated Sputum Sputum Culture - Final 12/18/18 12:00 Sputum - Expectorated Sputum - Final Laboratory WBC 7.4 X10^3/uL (3.6-10.0) 12/22/18 04:03 RBC 3.67 X10^6/uL (4.7-6.0) L 12/22/18 04:03 Hgb 10.1 g/dL (13.5-18.0) L 12/22/18 04:03 Hct 29.8 % (42.0-54.0) L 12/22/18 04:03 MCV 81.1 fL (80.0-100.0) 12/22/18 04:03 MCH 27.6 pg (27.0-34.0) 12/22/18 04:03 MCHC 34.0 g/dL (33.0-35.0) 12/22/18 04:03 RDW 15.8 % (11.6-16.5) 12/22/18 04:03 Plt Count 200 X10^3/uL (150.0-450.0) 12/22/18 04:03 Plt Count Comment Adequate (ADEQUATE) 12/22/18 04:03 MPV 7.8 fL (7.4-11.0) 12/22/18 04:03 Neut % (Auto) 57.3 % (42.0-75.0) 12/22/18 04:03 Lymph % (Auto) 32.3 % (21.0-51.0) 12/22/18 04:03 [place] % (Auto) 8.5 % (0.0-13.0) 12/22/18 04:03 Eos % (Auto) 1.6 % (0.9-2.9) 12/22/18 04:03 Baso % (Auto) 0.3 % (0.2-1.0) 12/22/18 04:03 Neut # (Auto) 4.2 x10^3/uL (2.2-4.8) 12/22/18 04:03 Lymph # (Auto) 2.4 X10^3/uL (1.3-2.9) 12/22/18 04:03 [place] # (Auto) 0.6 x10^3/uL (0.3-0.8) 12/22/18 04:03 Eos # (Auto) 0.1 x10^3/uL (0.0-0.2) 12/22/18 04:03 Baso # (Auto) 0.0 X10^3/uL (0.0-0.1) 12/22/18 04:03 Absolute Nucleated RBC 0.1 /100WBC 12/22/18 04:03 Total Counted 100 12/17/18 05:20 Neutrophils % (Manual) 86 % (39-76) H 12/17/18 05:20 Band Neutrophils % 2 % (0-10) 12/16/18 06:35 Lymphocytes % (Manual) 10 % (13-43) L 12/17/18 05:20 Monocytes % (Manual) 4 % (4-9) 12/17/18 05:20 Plt Clumps, EDTA Rare 12/19/18 06:00 Plt Morphology Comment Normal (NORMAL) 12/22/18 04:03 RBC Morphology Abnormal (NORMAL) 12/22/18 04:03 Hypochromasia Slight A 12/22/18 04:03 Poikilocytosis Slight A 12/20/18 04:38 PT 14.9 SECONDS (11.8-14.3) 12/16/18 13:00 INR Target Range - 12/16/18 13:00 INR 1.21 (0.8-1.3) 12/16/18 13:00 APTT 23.1 SECONDS (22.9-36.5) 12/16/18 13:00 PTT Comment - 12/16/18 13:00 Sample Site Lb 12/22/18 04:00 ABG pH 7.520 (7.35-7.45) H 12/22/18 04:00 ABG pCO2 33.0 mmHg (35.0-45.0) L 12/22/18 04:00 ABG pO2 97.0 mmHg (80.0-100.0) 12/22/18 04:00 ABG HCO3 26.9 mmol/L (22-26) H 12/22/18 04:00 ABG O2 Saturation 98.0 % (90-100) 12/22/18 04:00 ABG Base Excess 4.3 mmol/L (-2.0-2.0) H 12/22/18 04:00 Geoff Test N/a 12/22/18 04:00 A-a Gradient 11.0 mmHg 12/22/18 04:00 FiO2 21.0 12/22/18 04:00 Blood Gas Comments Marva well ae 12/22/18 04:00 Sodium 142 mmol/L (136-145) 12/22/18 04:03 Corrected Sodium TNP 12/22/18 04:03 Potassium 4.0 mmol/L (3.5-5.1) 12/22/18 11:30 Chloride 109 mmol/L (98-107) H 12/22/18 04:03 Carbon Dioxide 25.9 mmol/L (21-32) 12/22/18 04:03 BUN 4 mg/dL (7-18) L 12/22/18 04:03 Creatinine 0.63 mg/dL (0.70-1.30) L 12/22/18 13:56 Est GFR (MDRD) Af Amer > 60 (>60) 12/22/18 04:03 Est GFR (MDRD) Non-Af > 60 (>60) 12/22/18 04:03 Glucose 96 mg/dL (65-99) 12/22/18 04:03 POC Glucose (mg/dL) 166 mg/dL (65-99) H 12/22/18 16:40 Lactic Acid 1.7 mmol/L (0.4-2.0) 12/17/18 05:20 Calcium 7.9 mg/dL (8.5-10.1) L 12/22/18 04:03 Corrected Calcium 8.9 mg/dL (8.5-10.1) 12/22/18 04:03 Phosphorus 6.2 mg/dL (2.6-4.7) H 12/16/18 06:35 Magnesium 1.8 mg/dL (1.7-2.9) 12/22/18 04:03 Total Bilirubin 0.60 mg/dL (0.2-1.0) 12/22/18 04:03 AST 21 Units/L (15-37) 12/22/18 04:03 ALT 11 Units/L (12-78) L 12/22/18 04:03 Alkaline Phosphatase 69 Units/L (46-116) 12/22/18 04:03 Total Protein 6.3 g/dL (6.4-8.2) L 12/22/18 04:03 Albumin 2.8 g/dL (3.4-5.0) L 12/22/18 04:03 Globulin 3.5 g/dL (2.5-4.5) 12/22/18 04:03 Albumin/Globulin Ratio 0.8 Ratio (1.1-2.1) L 12/22/18 04:03 Amylase 119 Units/L (25-115) H 12/16/18 06:35 Lipase 129 Units/L (73-393) 12/16/18 06:35 Cortisol 64.2 ug/dL 12/16/18 06:35 Specimen Type Catherized urine 12/16/18 07:16 Urine Color Pale yellow (YELLOW) 12/16/18 07:16 Urine Appearance Clear (CLEAR) 12/16/18 07:16 Urine pH 5.0 (5.0 - 8.0) 12/16/18 07:16 Ur Specific [place] 1.020 (1.000-1.030) 12/16/18 07:16 Urine Protein Negative (NEGATIVE) 12/16/18 07:16 Urine Glucose (UA) 4+ (NEGATIVE) 12/16/18 07:16 Urine Ketones 4+ (NEGATIVE) 12/16/18 07:16 Urine Occult Blood Negative (NEGATIVE) 12/16/18 07:16 Urine Nitrite Negative (NEGATIVE) 12/16/18 07:16 Urine Bilirubin Negative (NEGATIVE) 12/16/18 07:16 Urine Urobilinogen Normal (NORMAL) 12/16/18 07:16 Ur Leukocyte Esterase Negative (NEGATIVE) 12/16/18 07:16 Vancomycin Trough 11.2 ug/mL (15-20) L 12/22/18 13:56 Acetone, Semi-Quant Negative (NEGATIVE) 12/22/18 04:03 - Plan (1) DKA (diabetic ketoacidoses) Status: Acute Qualifiers: Diabetes mellitus type: type 1 Diabetes mellitus complication detail: without coma Qualified Code(s): E10.10 - Type 1 diabetes mellitus with ketoacidosis without coma Plan: HUMULIN R DRIP, IV FLUIDS, MONITOR OTBS, CONTINUE TO MONITOR (2) Sepsis Status: Acute Qualifiers: Sepsis type: sepsis due to unspecified organism Sepsis acute organ dysfunction status: with acute organ dysfunction Severe sepsis acute organ dysfunction type: acute renal failure Acute renal failure type: with acute tubular necrosis Severe sepsis shock status: unspecified Qualified Code(s): A41.9 - Sepsis, unspecified organism; R65.20 - Severe sepsis without septic shock; N17.0 - Acute kidney failure with tubular necrosis Plan: IV ZOSYN, IV VANCOMYCIN, IV FLUIDS, CONTINUE TO MONITOR (3) Pneumonia Status: Acute Qualifiers: Pneumonia type: due to unspecified organism Laterality: right Lung location: lower lobe of lung Qualified Code(s): J18.1 - Lobar pneumonia, unspecified organism Plan: IV FLUIDS, IV ANTIBIOTICS, CONTINUE TO MONITOR (4) Dehydration Status: Acute Plan: IV FLUIDS, CONTINUE TO MONITOR (5) Renal failure Status: Acute Qualifiers: Renal failure chronicity: acute Plan: NORMAL SALINE, CONTINUE TO MONITOR
[2018-12-22] MEDS: REMERON PO SCH (21:11)
[2018-12-22] MEDS: XANAX PO PRN (22:17)
[2018-12-23] MEDS ORDERED: APRESOLINE INJ 20 MG VIAL IVP PRN (02:50)
[2018-12-23] MEDS ORDERED: APRESOLINE INJ 20 MG VIAL ONE (02:52)
[2018-12-23] MEDS: MORPHINE SULFATE INJ 2 MG INJ IVP PRN ×5 (03:59→23:35)
[2018-12-23 05:05] LABS: BASOPHILS % (AUTO) 0.3 % (0.2-1.0); EOSINOPHILS # (AUTO) 0.2 x10^3/uL (0.0-0.2); EOSINOPHILS % (AUTO) 1.4 % (0.9-2.9); HEMATOCRIT 34.5 % (42.0-54.0); HEMOGLOBIN 11.5 g/dL (13.5-18.0); LYMPHOCYTES # (AUTO) 2.4 X10^3/uL (1.3-2.9); LYMPHOCYTES % (AUTO) 17.5 % (21.0-51.0); MEAN CORPUSCULAR HEMOGLOBIN 27.2 pg (27.0-34.0); MEAN CORPUSCULAR HGB CONC 33.5 g/dL (33.0-35.0); MEAN CORPUSCULAR VOLUME 81.4 fL (80.0-100.0); MEAN PLATELET VOLUME 7.9 fL (7.4-11.0); MONOCYTES # (AUTO) 0.9 x10^3/uL (0.3-0.8); MONOCYTES % (AUTO) 6.9 % (0.0-13.0); NEUTROPHILS % (AUTO) 73.9 % (42.0-75.0); PLATELET COUNT 263 X10^3/uL (150.0-450.0); RED BLOOD COUNT 4.24 X10^6/uL (4.7-6.0); RED CELL DISTRIBUTION WIDTH 15.6 % (11.6-16.5); WHITE BLOOD COUNT 13.6 X10^3/uL (3.6-10.0)
[2018-12-23 05:10] LABS: ALANINE AMINOTRANSFERASE 11 Units/L (12-78); ALBUMIN 2.9 g/dL (3.4-5.0); ALKALINE PHOSPHATASE 69 Units/L (46-116); ASPARTATE AMINO TRANSFERASE 18 Units/L (15-37); BLOOD UREA NITROGEN 7 mg/dL (7-18); CALCIUM 8.3 mg/dL (8.5-10.1); CARBON DIOXIDE 22.2 mmol/L (21-32); CHLORIDE 108 mmol/L (98-107); COR CA(FOR HYPOALB) 9.2 mg/dL (8.5-10.1); CREATININE 0.58 mg/dL (0.70-1.30); SODIUM 140 mmol/L (136-145); TOTAL PROTEIN 6.6 g/dL (6.4-8.2); eGFR NON BLACK RACES > 60 (>60)
[2018-12-23 05:21] LABS: ABG BASE EXCESS 2.9 mmol/L (-2.0-2.0); ABG HCO3 24.8 mmol/L (22-26)
[2018-12-23] MEDS: VANCOMYCIN HCL 1 GM VIAL 1 G in NS 250 ML IV 250 ML IV SCH ×3 (05:29→22:21)
[2018-12-23] MEDS: NS + KCL 20 MEQ/L 1,000 ML IV SCH ×3 (05:30→18:05)
[2018-12-23] MEDS: ZOSYN VIAL 3.375 GRAMS 3.375 G in NS 100 ML IV + SPIKE MINIBAG* 100 ML IV SCH ×3 (05:30→22:10)
[2018-12-23] MEDS: HumaLOG SC SCH ×3 (05:42→18:05)
[2018-12-23] MEDS: K-DUR TAB 20 MEQ PO PRN (05:43)
[2018-12-23] MEDS: DUONEB 0.5 MG/3 MG NEB SCH ×4 (08:16→20:40)
[2018-12-23] MEDS: MILK OF MAGNESIA PO SCH (08:38)
[2018-12-23] MEDS: LEVSIN/MAALOX/LIDOC VISC PO SCH ×4 (08:38→21:38)
[2018-12-23] MEDS: PROTONIX INJ 40 MG VIAL IVP SCH ×2 (08:40→21:41)
[2018-12-23] MEDS: LINZESS PO SCH (08:40)
[2018-12-23] MEDS: PEPCID 20 MG IV PREMIX* 20 MG/50 ML BAG IV SCH ×2 (08:40→21:41)
[2018-12-23] MEDS: METHADONE HCL PO SCH ×2 (08:41→21:40)
[2018-12-23] MEDS: COLACE CAP 100 MG PO SCH (08:41)
[2018-12-23] MEDS: LOPRESSOR TAB 25 MG PO SCH ×2 (08:41→21:39)
[2018-12-23] MEDS: LEVEMIR SC SCH ×2 (08:41→21:35)
[2018-12-23] MEDS: SNACK - Diabetic Appropriate PO SCH (20:30)
--- NOTE | 2018-12-23 20:32 | PCM.PROG ---
Progress Note - Progress Note for Day of Date of Exam: 12/21/18 - Subjective Subjective: WAS ADMITTED FOR DKA, ACUTE DEHYDRATION, LEUKOCYTOSIS, SEPSIS, AND RENAL FAILURE. TODAY, HE IS ALERT AND ORIENTED, LYING IN BED ON MORNING ROUNDS. HE CONTINUES WITH WEAKNESS, ABDOMINAL PAIN, SHORTNESS OF BREATH, AND NAUSEA TODAY. ON EXAMINATION, HE CONTINUES TO BE TACHYCARDIC WITH HR IN THE LOWER 100s. LUNGS ARE NOTED WITH DIMINISHED LUNG SOUNDS THROUGHOUT. ABDOMEN IS FLAT, SOFT, AND NOTED 100WITH DIFFUSE TENDERNESS. HYPOACTIVE BOWEL SOUNDS ARE NOTED. HIS VITALS THIS MORNING ARE 99.7-100-18-99%-147/101. LABS WERE OBTAINED. ABNORMAL LAB VALUES INCLUDE THE FOLLOWIN.59, HGB 9.8, HCT 28.5, POTASSIUM 2.7, BUN 2, CREATININE 0.44, GLUCOSE 126, CALCIUM 7.4, MAGNESIUM 1.5, ALT 8, T OTAL PROTEIN 538, ALBUMIN 2.5. A BLOOD GAS WAS OBTAINED TODAY AND REVEALED: PH 7.560, PC02 35.0, P02 92.0, HC03 31.3, 02 SATURATION 98.0, BASE EXCESS 8.7. BLOOD CULTURES ARE PENDING. SPUTUM CULTURE PENDING. HE IS CURRENTLY RECEIVING IV VANCOMYCIN, IV ZOSYN, AND HUMULIN R SLIDING SCALE, NORMAL SALINE WITH 20MEQ KCL WITH TWO AMPS OF BICARB AT 200ML/HR, AND AN INSULIN DRIP. WE WILL ORDER REMERON 30MG PO HS AND PLAN TO OBTAIN A GASTRIC EMPTYING NEXT WEEK. OTHERWISE, WE WILL FOLLOW UP WITH AM LABS AND ABG AND CONTINUE TO MONITOR. - Past Medical Family Social History Past Med/Fam/Surg Hx: No changes since H&P Allergies: Allergies No Known Drug Allergies Allergy (Verified 11/03/18 01:58) - Review of Systems ROS: No change since H&P - Vital Signs and I&O's Vital Signs: Temperature 98.9 F Pulse Rate [Left Brachial] 105 Pulse Rate 107 Respiratory Rate 16 Blood Pressure [Left Arm] 166/107 Blood Pressure [Right Arm] 132/81 Blood Pressure 116/82 O2 Sat by Pulse Oximetry 100 Intake and Output: Intake & Output 12/21/18 12/22/18 12/23/18 12/24/18 11:59 11:59 11:59 11:59 Intake Total 7204 / 7204 7193 / 7193 5915 / 5915 1830 / 1830 Output Total 6180 / 6180 9125 / 9125 6400 / 6400 900 / 900 Balance 1024 / 1024 -1932 / -1932 -485 / -485 930 / 930 - Physical Exam Oriented: Normal Eyes: Normal Ear: Normal Nose: Normal Throat: Normal Respiratory: Generalized, Diminished Cardiovascular: Tachycardia. negative: S3, S4, Murmur : Normal Auscultation: Bowel Sounds: Decreased Palpation: Normal Tenderness: Diffuse, Severe. negative: Rebound, Guarding, Rigidity Skin: Decreased Turgur Musculoskeletal: Normal Psychiatric: Normal Mood Description: Calm Affect: Normal Speech Pattern: Clear, Appropriate - Laboratory and Diagnostics Result Diagrams: 12/23/18 04:01 12/23/18 08:10 Labs: 12/16/18 20:35 Blood Blood Culture - Final 12/16/18 20:30 Blood Blood Culture - Final 12/16/18 07:35 Blood Blood Culture - Final 12/16/18 07:28 Blood Blood Culture - Final 12/18/18 12:00 Sputum - Expectorated Sputum Sputum Culture - Final 12/18/18 12:00 Sputum - Expectorated Sputum - Final Laboratory WBC 13.6 X10^3/uL (3.6-10.0) H 12/23/18 04:01 RBC 4.24 X10^6/uL (4.7-6.0) L 12/23/18 04:01 Hgb 11.5 g/dL (13.5-18.0) L 12/23/18 04:01 Hct 34.5 % (42.0-54.0) L 12/23/18 04:01 MCV 81.4 fL (80.0-100.0) 12/23/18 04:01 MCH 27.2 pg (27.0-34.0) 12/23/18 04:01 MCHC 33.5 g/dL (33.0-35.0) 12/23/18 04:01 RDW 15.6 % (11.6-16.5) 12/23/18 04:01 Plt Count 263 X10^3/uL (150.0-450.0) 12/23/18 04:01 Plt Count Comment Adequate (ADEQUATE) 12/22/18 04:03 MPV 7.9 fL (7.4-11.0) 12/23/18 04:01 Neut % (Auto) 73.9 % (42.0-75.0) 12/23/18 04:01 Lymph % (Auto) 17.5 % (21.0-51.0) L 12/23/18 04:01 [place] % (Auto) 6.9 % (0.0-13.0) 12/23/18 04:01 Eos % (Auto) 1.4 % (0.9-2.9) 12/23/18 04:01 Baso % (Auto) 0.3 % (0.2-1.0) 12/23/18 04:01 Neut # (Auto) 10.0 x10^3/uL (2.2-4.8) H 12/23/18 04:01 Lymph # (Auto) 2.4 X10^3/uL (1.3-2.9) 12/23/18 04:01 [place] # (Auto) 0.9 x10^3/uL (0.3-0.8) H 12/23/18 04:01 Eos # (Auto) 0.2 x10^3/uL (0.0-0.2) 12/23/18 04:01 Baso # (Auto) 0.0 X10^3/uL (0.0-0.1) 12/23/18 04:01 Absolute Nucleated RBC 0.0 /100WBC 12/23/18 04:01 Total Counted 100 12/17/18 05:20 Neutrophils % (Manual) 86 % (39-76) H 12/17/18 05:20 Band Neutrophils % 2 % (0-10) 12/16/18 06:35 Lymphocytes % (Manual) 10 % (13-43) L 12/17/18 05:20 Monocytes % (Manual) 4 % (4-9) 12/17/18 05:20 Plt Clumps, EDTA Rare 12/19/18 06:00 Plt Morphology Comment Normal (NORMAL) 12/22/18 04:03 RBC Morphology Abnormal (NORMAL) 12/22/18 04:03 Hypochromasia Slight A 12/22/18 04:03 Poikilocytosis Slight A 12/20/18 04:38 PT 14.9 SECONDS (11.8-14.3) 12/16/18 13:00 INR Target Range - 12/16/18 13:00 INR 1.21 (0.8-1.3) 12/16/18 13:00 APTT 23.1 SECONDS (22.9-36.5) 12/16/18 13:00 PTT Comment - 12/16/18 13:00 Sample Site Rb 12/23/18 05:08 ABG pH 7.540 (7.35-7.45) H 12/23/18 05:08 ABG pCO2 29.0 mmHg (35.0-45.0) L 12/23/18 05:08 ABG pO2 90.0 mmHg (80.0-100.0) 12/23/18 05:08 ABG HCO3 24.8 mmol/L (22-26) 12/23/18 05:08 ABG O2 Saturation 98.0 % (90-100) 12/23/18 05:08 ABG Base Excess 2.9 mmol/L (-2.0-2.0) H 12/23/18 05:08 Geoff Test N/a 12/23/18 05:08 A-a Gradient 23.0 mmHg 12/23/18 05:08 FiO2 21.0 12/23/18 05:08 Blood Gas Comments Marva well ae 12/23/18 05:08 Sodium 140 mmol/L (136-145) 12/23/18 04:01 Corrected Sodium TNP 12/23/18 04:01 Potassium 3.9 mmol/L (3.5-5.1) 12/23/18 08:10 Chloride 108 mmol/L (98-107) H 12/23/18 04:01 Carbon Dioxide 22.2 mmol/L (21-32) 12/23/18 04:01 BUN 7 mg/dL (7-18) 12/23/18 04:01 Creatinine 0.58 mg/dL (0.70-1.30) L 12/23/18 04:01 Est GFR (MDRD) Af Amer > 60 (>60) 12/23/18 04:01 Est GFR (MDRD) Non-Af > 60 (>60) 12/23/18 04:01 Glucose 103 mg/dL (65-99) H 12/23/18 04:01 POC Glucose (mg/dL) 83 mg/dL (65-99) 12/23/18 16:56 Lactic Acid 1.7 mmol/L (0.4-2.0) 12/17/18 05:20 Calcium 8.3 mg/dL (8.5-10.1) L 12/23/18 04:01 Corrected Calcium 9.2 mg/dL (8.5-10.1) 12/23/18 04:01 Phosphorus 6.2 mg/dL (2.6-4.7) H 12/16/18 06:35 Magnesium 1.5 mg/dL (1.7-2.9) L 12/23/18 04:01 Total Bilirubin 0.30 mg/dL (0.2-1.0) 12/23/18 04:01 AST 18 Units/L (15-37) 12/23/18 04:01 ALT 11 Units/L (12-78) L 12/23/18 04:01 Alkaline Phosphatase 69 Units/L (46-116) 12/23/18 04:01 Total Protein 6.6 g/dL (6.4-8.2) 12/23/18 04:01 Albumin 2.9 g/dL (3.4-5.0) L 12/23/18 04:01 Globulin 3.7 g/dL (2.5-4.5) 12/23/18 04:01 Albumin/Globulin Ratio 0.8 Ratio (1.1-2.1) L 12/23/18 04:01 Amylase 119 Units/L (25-115) H 12/16/18 06:35 Lipase 129 Units/L (73-393) 12/16/18 06:35 Cortisol 64.2 ug/dL 12/16/18 06:35 Specimen Type Catherized urine 12/16/18 07:16 Urine Color Pale yellow (YELLOW) 12/16/18 07:16 Urine Appearance Clear (CLEAR) 12/16/18 07:16 Urine pH 5.0 (5.0 - 8.0) 12/16/18 07:16 Ur Specific [place] 1.020 (1.000-1.030) 12/16/18 07:16 Urine Protein Negative (NEGATIVE) 12/16/18 07:16 Urine Glucose (UA) 4+ (NEGATIVE) 12/16/18 07:16 Urine Ketones 4+ (NEGATIVE) 12/16/18 07:16 Urine Occult Blood Negative (NEGATIVE) 12/16/18 07:16 Urine Nitrite Negative (NEGATIVE) 12/16/18 07:16 Urine Bilirubin Negative (NEGATIVE) 12/16/18 07:16 Urine Urobilinogen Normal (NORMAL) 12/16/18 07:16 Ur Leukocyte Esterase Negative (NEGATIVE) 12/16/18 07:16 Vancomycin Trough 11.2 ug/mL (15-20) L 12/22/18 13:56 Acetone, Semi-Quant Negative (NEGATIVE) 12/22/18 04:03 - Plan (1) DKA (diabetic ketoacidoses) Status: Acute Qualifiers: Diabetes mellitus type: type 1 Diabetes mellitus complication detail: without coma Qualified Code(s): E10.10 - Type 1 diabetes mellitus with ketoacidosis without coma Plan: HUMULIN R DRIP, IV FLUIDS, MONITOR OTBS, CONTINUE TO MONITOR (2) Sepsis Status: Acute Qualifiers: Sepsis type: sepsis due to unspecified organism Sepsis acute organ dysfunction status: with acute organ dysfunction Severe sepsis acute organ dysfunction type: acute renal failure Acute renal failure type: with acute tubular necrosis Severe sepsis shock status: unspecified Qualified Code(s): A41.9 - Sepsis, unspecified organism; R65.20 - Severe sepsis without septic shock; N17.0 - Acute kidney failure with tubular necrosis Plan: IV ZOSYN, IV VANCOMYCIN, IV FLUIDS, CONTINUE TO MONITOR (3) Pneumonia Status: Acute Qualifiers: Pneumonia type: due to unspecified organism Laterality: right Lung location: lower lobe of lung Qualified Code(s): J18.1 - Lobar pneumonia, unspecified organism Plan: IV FLUIDS, IV ANTIBIOTICS, CONTINUE TO MONITOR (4) Dehydration Status: Acute Plan: IV FLUIDS, CONTINUE TO MONITOR (5) Renal failure Status: Acute Qualifiers: Renal failure chronicity: acute Plan: NORMAL SALINE, CONTINUE TO MONITOR (6) Gastroparesis due to DM Status: Acute Plan: REMERON 30MG PO HS, CONTINUE TO MONITOR
[2018-12-23 20:59] LABS: CREATININE 0.88 mg/dL (0.70-1.30); VANCOMYCIN,TROUGH 13.4 ug/mL (15-20)
[2018-12-23] MEDS: REMERON PO SCH (21:41)
[2018-12-24] MEDS: NS + KCL 20 MEQ/L 1,000 ML IV SCH (01:40)
[2018-12-24 04:51] LABS: BASOPHILS % (AUTO) 0.2 % (0.2-1.0); EOSINOPHILS # (AUTO) 0.2 x10^3/uL (0.0-0.2); EOSINOPHILS % (AUTO) 2.5 % (0.9-2.9); HEMATOCRIT 27.1 % (42.0-54.0); LYMPHOCYTES # (AUTO) 3.3 X10^3/uL (1.3-2.9); LYMPHOCYTES % (AUTO) 42.4 % (21.0-51.0); MEAN CORPUSCULAR HEMOGLOBIN 27.7 pg (27.0-34.0); MEAN CORPUSCULAR HGB CONC 33.5 g/dL (33.0-35.0); MEAN CORPUSCULAR VOLUME 82.6 fL (80.0-100.0); MEAN PLATELET VOLUME 7.4 fL (7.4-11.0); MONOCYTES # (AUTO) 0.8 x10^3/uL (0.3-0.8); MONOCYTES % (AUTO) 10.7 % (0.0-13.0); NEUTROPHILS # (AUTO) 3.5 x10^3/uL (2.2-4.8); NEUTROPHILS % (AUTO) 44.2 % (42.0-75.0); PLATELET COUNT 275 X10^3/uL (150.0-450.0); RED BLOOD COUNT 3.28 X10^6/uL (4.7-6.0); RED CELL DISTRIBUTION WIDTH 15.7 % (11.6-16.5); WHITE BLOOD COUNT 7.8 X10^3/uL (3.6-10.0)
[2018-12-24 04:53] LABS: HEMOGLOBIN 9.1 g/dL (13.5-18.0)
[2018-12-24 05:04] LABS: HYPOCHROMASIA SLIGHT; PLATELET MORPHOLOGY COMMENT NORMAL (NORMAL)
[2018-12-24 05:08] LABS: ALANINE AMINOTRANSFERASE 9 Units/L (12-78); ALBUMIN 2.4 g/dL (3.4-5.0); ALKALINE PHOSPHATASE 55 Units/L (46-116); ASPARTATE AMINO TRANSFERASE 15 Units/L (15-37); BLOOD UREA NITROGEN 7 mg/dL (7-18); CARBON DIOXIDE 28.4 mmol/L (21-32); CHLORIDE 108 mmol/L (98-107); COR CA(FOR HYPOALB) 9.3 mg/dL (8.5-10.1); CREATININE 0.66 mg/dL (0.70-1.30); SODIUM 143 mmol/L (136-145); TOTAL PROTEIN 5.9 g/dL (6.4-8.2); eGFR NON BLACK RACES > 60 (>60)
[2018-12-24] MEDS: MORPHINE SULFATE INJ 2 MG INJ IVP PRN ×5 (05:39→23:30)
[2018-12-24] MEDS: VANCOMYCIN HCL 1 GM VIAL 1 G in NS 250 ML IV 250 ML IV SCH ×3 (05:41→22:35)
[2018-12-24] MEDS: ZOSYN VIAL 3.375 GRAMS 3.375 G in NS 100 ML IV + SPIKE MINIBAG* 100 ML IV SCH ×3 (05:42→21:28)
[2018-12-24] MEDS ORDERED: D50W ABBOJECT SYR IV ONE ×3 (06:10→09:41)
[2018-12-24] MEDS ORDERED: D50W ABBOJECT SYR ONE ×2 (06:13→08:20)
[2018-12-24] MEDS: HumaLOG SC SCH ×3 (06:21→16:20)
[2018-12-24 08:30] LABS: ABG BASE EXCESS 3.7 mmol/L (-2.0-2.0); ABG HCO3 27.7 mmol/L (22-26)
[2018-12-24] MEDS: DUONEB 0.5 MG/3 MG NEB SCH ×4 (08:41→20:45)
[2018-12-24] MEDS: PEPCID 20 MG IV PREMIX* 20 MG/50 ML BAG IV SCH ×2 (09:19→21:23)
[2018-12-24] MEDS: PROTONIX INJ 40 MG VIAL IVP SCH ×2 (09:20→21:24)
[2018-12-24] MEDS: LEVSIN/MAALOX/LIDOC VISC PO SCH ×4 (09:24→21:21)
[2018-12-24] MEDS: LEVEMIR SC SCH ×2 (09:24→21:36)
[2018-12-24] MEDS: LINZESS PO SCH (09:25)
[2018-12-24] MEDS: LOPRESSOR TAB 25 MG PO SCH ×2 (09:25→21:22)
[2018-12-24] MEDS: METHADONE HCL PO SCH ×3 (09:25→22:44)
[2018-12-24] MEDS: D5W + KCL 20 MEQ/L 1,000 ML IV SCH ×2 (10:29→21:22)
--- NOTE | 2018-12-24 10:59 | PCM.PROG ---
Progress Note - Progress Note for Day of Date of Exam: 12/22/18 - Subjective Subjective: WAS ADMITTED FOR DKA, ACUTE DEHYDRATION, LEUKOCYTOSIS, SEPSIS, AND RENAL FAILURE. TODAY, HE IS ALERT AND ORIENTED, LYING IN BED ON MORNING ROUNDS. HE CONTINUES WITH WEAKNESS, ABDOMINAL PAIN, SHORTNESS OF BREATH, AND NAUSEA TODAY. ON EXAMINATION, HE CONTINUES TO BE TACHYCARDIC WITH HR IN THE LOWER 120s. LUNGS ARE NOTED WITH DIMINISHED LUNG SOUNDS THROUGHOUT. ABDOMEN IS FLAT, SOFT, AND NOTED WITH DIFFUSE TENDERNESS. HYPOACTIVE BOWEL SOUNDS ARE NOTED. HIS VITALS THIS MORNING ARE 98.7-872-56-100%-145/95. LABS WERE OBTAINED. ABNORMAL LAB VALUES INCLUDE THE FOLLOWING: RBC 3.67, HGB 10.1, HCT 29.8, POTASSIUM 3.3, CHLORIDE 109, BUN 4, CREATININE 0.58, CALCIUM 7.9, ALT 11, TOTAL PROTEIN 6.3, ALBUMIN 2.8. BLOOD CULTURES ARE PENDING. SPUTUM CULTURE PENDING. HE IS CURRENTLY RECEIVING IV VANCOMYCIN, IV ZOSYN, HUMULIN R SLIDING SCALE, NORMAL SALINE WITH 20MEQ KCL WITH TWO AMPS OF BICARB AT 200ML/HR. WE RESUMED HIS HOME MEDICATIONS YESTERDAY. HE IS SCHEDULED FOR A GASTRIC EMPTYING ON MONDAY. TODAY, WE WILL START CATAPRES 0.1MG PO Q6H PRN DUE TO HYPERTENSION. OTHERWISE, WE WILL FOLLOW UP WITH AM LABS AND ABG AND CONTINUE TO MONITOR. - Past Medical Family Social History Past Med/Fam/Surg Hx: No changes since H&P Allergies: Allergies No Known Drug Allergies Allergy (Verified 11/03/18 01:58) - Review of Systems ROS: No change since H&P - Vital Signs and I&O's Vital Signs: Temperature 97.4 F Pulse Rate [Left Brachial] 105 Pulse Rate 96 Respiratory Rate 16 Blood Pressure [Left Arm] 166/107 Blood Pressure [Right Arm] 132/81 Blood Pressure 113/70 O2 Sat by Pulse Oximetry 100 Intake and Output: Intake & Output 12/21/18 12/22/18 12/23/18 12/24/18 11:59 11:59 11:59 11:59 Intake Total 7204 / 7204 7193 / 7193 5915 / 5915 4800 / 4800 Output Total 6180 / 6180 9125 / 9125 6400 / 6400 3400 / 3400 Balance 1024 / 1024 -1932 / -1932 -485 / -485 1400 / 1400 - Physical Exam Oriented: Normal Eyes: Normal Ear: Normal Nose: Normal Throat: Normal Respiratory: Generalized, Diminished Cardiovascular: Tachycardia. negative: S3, S4, Murmur : Normal Auscultation: Bowel Sounds: Decreased Palpation: Normal Tenderness: Diffuse, Severe. negative: Rebound, Guarding, Rigidity Skin: Decreased Turgur Musculoskeletal: Normal Psychiatric: Normal Mood Description: Calm Affect: Normal Speech Pattern: Clear, Appropriate - Laboratory and Diagnostics Result Diagrams: 12/24/18 03:59 12/24/18 10:15 Labs: 12/16/18 20:35 Blood Blood Culture - Final 12/16/18 20:30 Blood Blood Culture - Final 12/16/18 07:35 Blood Blood Culture - Final 12/16/18 07:28 Blood Blood Culture - Final 12/18/18 12:00 Sputum - Expectorated Sputum Sputum Culture - Final 12/18/18 12:00 Sputum - Expectorated Sputum - Final Laboratory WBC 7.8 X10^3/uL (3.6-10.0) 12/24/18 03:59 RBC 3.28 X10^6/uL (4.7-6.0) L 12/24/18 03:59 Hgb 9.1 g/dL (13.5-18.0) L D 12/24/18 03:59 Hct 27.1 % (42.0-54.0) L 12/24/18 03:59 MCV 82.6 fL (80.0-100.0) 12/24/18 03:59 MCH 27.7 pg (27.0-34.0) 12/24/18 03:59 MCHC 33.5 g/dL (33.0-35.0) 12/24/18 03:59 RDW 15.7 % (11.6-16.5) 12/24/18 03:59 Plt Count 275 X10^3/uL (150.0-450.0) 12/24/18 03:59 Plt Count Comment Adequate (ADEQUATE) 12/24/18 03:59 MPV 7.4 fL (7.4-11.0) 12/24/18 03:59 Neut % (Auto) 44.2 % (42.0-75.0) 12/24/18 03:59 Lymph % (Auto) 42.4 % (21.0-51.0) 12/24/18 03:59 [place] % (Auto) 10.7 % (0.0-13.0) 12/24/18 03:59 Eos % (Auto) 2.5 % (0.9-2.9) 12/24/18 03:59 Baso % (Auto) 0.2 % (0.2-1.0) 12/24/18 03:59 Neut # (Auto) 3.5 x10^3/uL (2.2-4.8) 12/24/18 03:59 Lymph # (Auto) 3.3 X10^3/uL (1.3-2.9) H 12/24/18 03:59 [place] # (Auto) 0.8 x10^3/uL (0.3-0.8) 12/24/18 03:59 Eos # (Auto) 0.2 x10^3/uL (0.0-0.2) 12/24/18 03:59 Baso # (Auto) 0.0 X10^3/uL (0.0-0.1) 12/24/18 03:59 Absolute Nucleated RBC 0.0 /100WBC 12/24/18 03:59 Total Counted 100 12/17/18 05:20 Neutrophils % (Manual) 86 % (39-76) H 12/17/18 05:20 Band Neutrophils % 2 % (0-10) 12/16/18 06:35 Lymphocytes % (Manual) 10 % (13-43) L 12/17/18 05:20 Monocytes % (Manual) 4 % (4-9) 12/17/18 05:20 Plt Clumps, EDTA Rare 12/19/18 06:00 Plt Morphology Comment Normal (NORMAL) 12/24/18 03:59 RBC Morphology Abnormal (NORMAL) 12/24/18 03:59 Hypochromasia Slight A 12/24/18 03:59 Poikilocytosis Slight A 12/20/18 04:38 PT 14.9 SECONDS (11.8-14.3) 12/16/18 13:00 INR Target Range - 12/16/18 13:00 INR 1.21 (0.8-1.3) 12/16/18 13:00 APTT 23.1 SECONDS (22.9-36.5) 12/16/18 13:00 PTT Comment - 12/16/18 13:00 Sample Site Left brachial 12/24/18 08:20 ABG pH 7.460 (7.35-7.45) H 12/24/18 08:20 ABG pCO2 39.0 mmHg (35.0-45.0) 12/24/18 08:20 ABG pO2 91.0 mmHg (80.0-100.0) 12/24/18 08:20 ABG HCO3 27.7 mmol/L (22-26) H 12/24/18 08:20 ABG O2 Saturation 97.0 % (90-100) 12/24/18 08:20 ABG Base Excess 3.7 mmol/L (-2.0-2.0) H 12/24/18 08:20 Geoff Test Na 12/24/18 08:20 A-a Gradient 10.0 mmHg 12/24/18 08:20 FiO2 21.0 12/24/18 08:20 Blood Gas Comments Marva well aw 12/24/18 08:20 Sodium 143 mmol/L (136-145) 12/24/18 03:59 Corrected Sodium TNP 12/24/18 03:59 Potassium 3.6 mmol/L (3.5-5.1) 12/24/18 03:59 Chloride 108 mmol/L (98-107) H 12/24/18 03:59 Carbon Dioxide 28.4 mmol/L (21-32) 12/24/18 03:59 BUN 7 mg/dL (7-18) 12/24/18 03:59 Creatinine 0.66 mg/dL (0.70-1.30) L 12/24/18 03:59 Est GFR (MDRD) Af Amer > 60 (>60) 12/24/18 03:59 Est GFR (MDRD) Non-Af > 60 (>60) 12/24/18 03:59 Glucose 84 mg/dL (65-99) 12/24/18 10:15 POC Glucose (mg/dL) 66 mg/dL (65-99) 12/24/18 09:36 Lactic Acid 1.7 mmol/L (0.4-2.0) 12/17/18 05:20 Calcium 8.0 mg/dL (8.5-10.1) L 12/24/18 03:59 Corrected Calcium 9.3 mg/dL (8.5-10.1) 12/24/18 03:59 Phosphorus 6.2 mg/dL (2.6-4.7) H 12/16/18 06:35 Magnesium 1.5 mg/dL (1.7-2.9) L 12/23/18 04:01 Total Bilirubin 0.20 mg/dL (0.2-1.0) 12/24/18 03:59 AST 15 Units/L (15-37) 12/24/18 03:59 ALT 9 Units/L (12-78) L 12/24/18 03:59 Alkaline Phosphatase 55 Units/L (46-116) 12/24/18 03:59 Total Protein 5.9 g/dL (6.4-8.2) L 12/24/18 03:59 Albumin 2.4 g/dL (3.4-5.0) L 12/24/18 03:59 Globulin 3.5 g/dL (2.5-4.5) 12/24/18 03:59 Albumin/Globulin Ratio 0.7 Ratio (1.1-2.1) L 12/24/18 03:59 Amylase 119 Units/L (25-115) H 12/16/18 06:35 Lipase 129 Units/L (73-393) 12/16/18 06:35 Cortisol 64.2 ug/dL 12/16/18 06:35 Specimen Type Catherized urine 12/16/18 07:16 Urine Color Pale yellow (YELLOW) 12/16/18 07:16 Urine Appearance Clear (CLEAR) 12/16/18 07:16 Urine pH 5.0 (5.0 - 8.0) 12/16/18 07:16 Ur Specific [place] 1.020 (1.000-1.030) 12/16/18 07:16 Urine Protein Negative (NEGATIVE) 12/16/18 07:16 Urine Glucose (UA) 4+ (NEGATIVE) 12/16/18 07:16 Urine Ketones 4+ (NEGATIVE) 12/16/18 07:16 Urine Occult Blood Negative (NEGATIVE) 12/16/18 07:16 Urine Nitrite Negative (NEGATIVE) 12/16/18 07:16 Urine Bilirubin Negative (NEGATIVE) 12/16/18 07:16 Urine Urobilinogen Normal (NORMAL) 12/16/18 07:16 Ur Leukocyte Esterase Negative (NEGATIVE) 12/16/18 07:16 Vancomycin Trough 13.4 ug/mL (15-20) L 12/23/18 20:32 Acetone, Semi-Quant Negative (NEGATIVE) 12/22/18 04:03 - Plan (1) DKA (diabetic ketoacidoses) Status: Acute Qualifiers: Diabetes mellitus type: type 1 Diabetes mellitus complication detail: without coma Qualified Code(s): E10.10 - Type 1 diabetes mellitus with ketoacidosis without coma Plan: HUMULIN R SLIDING SCALE, IV FLUIDS, MONITOR OTBS, CONTINUE HOME MEDS , CONTINUE TO MONITOR (2) Sepsis Status: Acute Qualifiers: Sepsis type: sepsis due to unspecified organism Sepsis acute organ dysfunction status: with acute organ dysfunction Severe sepsis acute organ dysfunction type: acute renal failure Acute renal failure type: with acute tubular necrosis Severe sepsis shock status: unspecified Qualified Code(s): A41.9 - Sepsis, unspecified organism; R65.20 - Severe sepsis without septic shock; N17.0 - Acute kidney failure with tubular necrosis Plan: IV ZOSYN, IV VANCOMYCIN, IV FLUIDS, CONTINUE TO MONITOR (3) Pneumonia Status: Acute Qualifiers: Pneumonia type: due to unspecified organism Laterality: right Lung locat ion: lower lobe of lung Qualified Code(s): J18.1 - Lobar pneumonia, unspecified organism Plan: IV FLUIDS, IV ANTIBIOTICS, CONTINUE TO MONITOR (4) Dehydration Status: Acute Plan: IV FLUIDS, CONTINUE TO MONITOR (5) Renal failure Status: Acute Qualifiers: Renal failure chronicity: acute Plan: NORMAL SALINE, CONTINUE TO MONITOR (6) Gastroparesis due to DM Status: Acute Plan: REMERON 30MG PO HS, CONTINUE TO MONITOR, GASTRIC EMPTYING ON MONDAY (7) Hypertension Status: Chronic Qualifiers: Hypertension type: essential hypertension Qualified Code(s): I10 - Essential (primary) hypertension Plan: CATAPRES 0.1MG PO Q6H PRN
--- NOTE | 2018-12-24 11:38 | PCM.PROG ---
Progress Note - Progress Note for Day of Date of Exam: 12/23/18 - Subjective Subjective: WAS ADMITTED FOR DKA, ACUTE DEHYDRATION, LEUKOCYTOSIS, SEPSIS, AND RENAL FAILURE. TODAY, HE IS ALERT AND ORIENTED, LYING IN BED ON MORNING ROUNDS. HE CONTINUES WITH WEAKNESS, ABDOMINAL PAIN, SHORTNESS OF BREATH, AND NAUSEA TODAY. ON EXAMINATION, HE CONTINUES TO BE TACHYCARDIC WITH HR IN THE LOWER 140s. LUNGS ARE NOTED WITH DIMINISHED LUNG SOUNDS THROUGHOUT. ABDOMEN IS FLAT, SOFT, AND NOTED WITH DIFFUSE TENDERNESS. HYPOACTIVE BOWEL SOUNDS ARE NOTED. HIS VITALS THIS MORNING ARE 98.6-317-64-100%-133/88. LABS WERE OBTAINED. ABNORMAL LAB VALUES INCLUDE THE FOLLOWING: WBC 13.6, RBC 4.24, HGB 11.5, HCT 34.5, POTASSIUM 3.3, CHLORIDE 108, CREATININE 0.58, GLUCOSE 103, CALCIUM 8.3, MAGNESIUM 1.5, ALT 11, ALBUMIN 2.9. BLOOD CULTURES ARE PENDING. SPUTUM CULTURE PENDING. HE IS CURRENTLY RECEIVING IV VANCOMYCIN, IV ZOSYN, HUMULIN R SLIDING SCALE, NORMAL SALINE WITH 20MEQ KCL AT 200ML/HR. HE IS SCHEDULED FOR A GASTRIC EMPTYING ON MONDAY. WE WILL CONTINUE WITH CURRENT PLAN OF CARE TODAY. OTHERWISE, WE WILL FOLLOW UP WITH AM LABS AND ABG AND CONTINUE TO MONITOR. - Past Medical Family Social History Past Med/Fam/Surg Hx: No changes since H&P Allergies: Allergies No Known Drug Allergies Allergy (Verified 11/03/18 01:58) - Review of Systems ROS: No change since H&P - Vital Signs and I&O's Vital Signs: Temperature 98.9 F Pulse Rate [Left Brachial] 105 Pulse Rate 96 Respiratory Rate 13 Blood Pressure [Left Arm] 166/107 Blood Pressure [Right Arm] 132/81 Blood Pressure 129/87 O2 Sat by Pulse Oximetry 100 Intake and Output: Intake & Output 12/21/18 12/22/18 12/23/18 12/24/18 11:59 11:59 11:59 11:59 Intake Total 7204 / 7204 7193 / 7193 5915 / 5915 4800 / 4800 Output Total 6180 / 6180 9125 / 9125 6400 / 6400 3400 / 3400 Balance 1024 / 1024 -1932 / -1932 -485 / -485 1400 / 1400 - Physical Exam Oriented: Normal Eyes: Normal Ear: Normal Nose: Normal Throat: Normal Respiratory: Generalized, Diminished Cardiovascular: Tachycardia. negative: S3, S4, Murmur : Normal Auscultation: Bowel Sounds: Decreased Palpation: Normal Tenderness: Diffuse, Severe. negative: Rebound, Guarding, Rigidity Skin: Decreased Turgur Musculoskeletal: Normal Psychiatric: Normal Mood Description: Calm Affect: Normal Speech Pattern: Clear, Appropriate - Laboratory and Diagnostics Result Diagrams: 12/24/18 03:59 12/24/18 10:15 Labs: 12/16/18 20:35 Blood Blood Culture - Final 12/16/18 20:30 Blood Blood Culture - Final 12/16/18 07:35 Blood Blood Culture - Final 12/16/18 07:28 Blood Blood Culture - Final 12/18/18 12:00 Sputum - Expectorated Sputum Sputum Culture - Final 12/18/18 12:00 Sputum - Expectorated Sputum - Final Laboratory WBC 7.8 X10^3/uL (3.6-10.0) 12/24/18 03:59 RBC 3.28 X10^6/uL (4.7-6.0) L 12/24/18 03:59 Hgb 9.1 g/dL (13.5-18.0) L D 12/24/18 03:59 Hct 27.1 % (42.0-54.0) L 12/24/18 03:59 MCV 82.6 fL (80.0-100.0) 12/24/18 03:59 MCH 27.7 pg (27.0-34.0) 12/24/18 03:59 MCHC 33.5 g/dL (33.0-35.0) 12/24/18 03:59 RDW 15.7 % (11.6-16.5) 12/24/18 03:59 Plt Count 275 X10^3/uL (150.0-450.0) 12/24/18 03:59 Plt Count Comment Adequate (ADEQUATE) 12/24/18 03:59 MPV 7.4 fL (7.4-11.0) 12/24/18 03:59 Neut % (Auto) 44.2 % (42.0-75.0) 12/24/18 03:59 Lymph % (Auto) 42.4 % (21.0-51.0) 12/24/18 03:59 [place] % (Auto) 10.7 % (0.0-13.0) 12/24/18 03:59 Eos % (Auto) 2.5 % (0.9-2.9) 12/24/18 03:59 Baso % (Auto) 0.2 % (0.2-1.0) 12/24/18 03:59 Neut # (Auto) 3.5 x10^3/uL (2.2-4.8) 12/24/18 03:59 Lymph # (Auto) 3.3 X10^3/uL (1.3-2.9) H 12/24/18 03:59 [place] # (Auto) 0.8 x10^3/uL (0.3-0.8) 12/24/18 03:59 Eos # (Auto) 0.2 x10^3/uL (0.0-0.2) 12/24/18 03:59 Baso # (Auto) 0.0 X10^3/uL (0.0-0.1) 12/24/18 03:59 Absolute Nucleated RBC 0.0 /100WBC 12/24/18 03:59 Total Counted 100 12/17/18 05:20 Neutrophils % (Manual) 86 % (39-76) H 12/17/18 05:20 Band Neutrophils % 2 % (0-10) 12/16/18 06:35 Lymphocytes % (Manual) 10 % (13-43) L 12/17/18 05:20 Monocytes % (Manual) 4 % (4-9) 12/17/18 05:20 Plt Clumps, EDTA Rare 12/19/18 06:00 Plt Morphology Comment Normal (NORMAL) 12/24/18 03:59 RBC Morphology Abnormal (NORMAL) 12/24/18 03:59 Hypochromasia Slight A 12/24/18 03:59 Poikilocytosis Slight A 12/20/18 04:38 PT 14.9 SECONDS (11.8-14.3) 12/16/18 13:00 INR Target Range - 12/16/18 13:00 INR 1.21 (0.8-1.3) 12/16/18 13:00 APTT 23.1 SECONDS (22.9-36.5) 12/16/18 13:00 PTT Comment - 12/16/18 13:00 Sample Site Left brachial 12/24/18 08:20 ABG pH 7.460 (7.35-7.45) H 12/24/18 08:20 ABG pCO2 39.0 mmHg (35.0-45.0) 12/24/18 08:20 ABG pO2 91.0 mmHg (80.0-100.0) 12/24/18 08:20 ABG HCO3 27.7 mmol/L (22-26) H 12/24/18 08:20 ABG O2 Saturation 97.0 % (90-100) 12/24/18 08:20 ABG Base Excess 3.7 mmol/L (-2.0-2.0) H 12/24/18 08:20 Geoff Test Na 12/24/18 08:20 A-a Gradient 10.0 mmHg 12/24/18 08:20 FiO2 21.0 12/24/18 08:20 Blood Gas Comments Marva well aw 12/24/18 08:20 Sodium 143 mmol/L (136-145) 12/24/18 03:59 Corrected Sodium TNP 12/24/18 03:59 Potassium 3.6 mmol/L (3.5-5.1) 12/24/18 03:59 Chloride 108 mmol/L (98-107) H 12/24/18 03:59 Carbon Dioxide 28.4 mmol/L (21-32) 12/24/18 03:59 BUN 7 mg/dL (7-18) 12/24/18 03:59 Creatinine 0.66 mg/dL (0.70-1.30) L 12/24/18 03:59 Est GFR (MDRD) Af Amer > 60 (>60) 12/24/18 03:59 Est GFR (MDRD) Non-Af > 60 (>60) 12/24/18 03:59 Glucose 84 mg/dL (65-99) 12/24/18 10:15 POC Glucose (mg/dL) 65 mg/dL (65-99) 12/24/18 11:13 Lactic Acid 1.7 mmol/L (0.4-2.0) 12/17/18 05:20 Calcium 8.0 mg/dL (8.5-10.1) L 12/24/18 03:59 Corrected Calcium 9.3 mg/dL (8.5-10.1) 12/24/18 03:59 Phosphorus 6.2 mg/dL (2.6-4.7) H 12/16/18 06:35 Magnesium 1.5 mg/dL (1.7-2.9) L 12/23/18 04:01 Total Bilirubin 0.20 mg/dL (0.2-1.0) 12/24/18 03:59 AST 15 Units/L (15-37) 12/24/18 03:59 ALT 9 Units/L (12-78) L 12/24/18 03:59 Alkaline Phosphatase 55 Units/L (46-116) 12/24/18 03:59 Total Protein 5.9 g/dL (6.4-8.2) L 12/24/18 03:59 Albumin 2.4 g/dL (3.4-5.0) L 12/24/18 03:59 Globulin 3.5 g/dL (2.5-4.5) 12/24/18 03:59 Albumin/Globulin Ratio 0.7 Ratio (1.1-2.1) L 12/24/18 03:59 Amylase 119 Units/L (25-115) H 12/16/18 06:35 Lipase 129 Units/L (73-393) 12/16/18 06:35 Cortisol 64.2 ug/dL 12/16/18 06:35 Specimen Type Catherized urine 12/16/18 07:16 Urine Color Pale yellow (YELLOW) 12/16/18 07:16 Urine Appearance Clear (CLEAR) 12/16/18 07:16 Urine pH 5.0 (5.0 - 8.0) 12/16/18 07:16 Ur Specific [place] 1.020 (1.000-1.030) 12/16/18 07:16 Urine Protein Negative (NEGATIVE) 12/16/18 07:16 Urine Glucose (UA) 4+ (NEGATIVE) 12/16/18 07:16 Urine Ketones 4+ (NEGATIVE) 12/16/18 07:16 Urine Occult Blood Negative (NEGATIVE) 12/16/18 07:16 Urine Nitrite Negative (NEGATIVE) 12/16/18 07:16 Urine Bilirubin Negative (NEGATIVE) 12/16/18 07:16 Urine Urobilinogen Normal (NORMAL) 12/16/18 07:16 Ur Leukocyte Esterase Negative (NEGATIVE) 12/16/18 07:16 Vancomycin Trough 13.4 ug/mL (15-20) L 12/23/18 20:32 Acetone, Semi-Quant Negative (NEGATIVE) 12/22/18 04:03 - Plan (1) DKA (diabetic ketoacidoses) Status: Acute Qualifiers: Diabetes mellitus type: type 1 Diabetes mellitus complication detail: without coma Qualified Code(s): E10.10 - Type 1 diabetes mellitus with ketoacidosis without coma Plan: HUMULIN R SLIDING SCALE, IV FLUIDS, MONITOR OTBS, CONTINUE HOME MEDS , CONTINUE TO MONITOR (2) Sepsis Status: Acute Qualifiers: Sepsis type: sepsis due to unspecified organism Sepsis acute organ dysfunction status: with acute organ dysfunction Severe sepsis acute organ dysfunction type: acute renal failure Acute renal failure type: with acute tubular necrosis Severe sepsis shock status: unspecified Qualified Code(s): A41.9 - Sepsis, unspecified organism; R65.20 - Severe sepsis without septic shock; N17.0 - Acute kidney failure with tubular necrosis Plan: IV ZOSYN, IV VANCOMYCIN, IV FLUIDS, CONTINUE TO MONITOR (3) Pneumonia Status: Acute Qualifiers: Pneumonia type: due to unspecified organism Laterality: right Lung location: lower lobe of lung Qualified Code(s): J18.1 - Lobar pneumonia, unspecified organism Plan: IV FLUIDS, IV ANTIBIOTICS, CONTINUE TO MONITOR (4) Dehydration Status: Acute Plan: IV FLUIDS, CONTINUE TO MONITOR (5) Renal failure Status: Acute Qualifiers: Renal failure chronicity: acute Plan: NORMAL SALINE, CONTINUE TO MONITOR (6) Gastroparesis due to DM Status: Acute Plan: REMERON 30MG PO HS, CONTINUE TO MONITOR, GASTRIC EMPTYING ON MONDAY (7) Hypertension Status: Chronic Qualifiers: Hypertension type: essential hypertension Qualified Code(s): I10 - Essential (primary) hypertension Plan: CATAPRES 0.1MG PO Q6H PRN, APRESOLINE IV
--- NOTE | 2018-12-24 14:58 | NM ---
HISTORY: Abdominal pain. Clinical concern for gastroparesis/gastric emptying disorder. NUCLEAR MEDICINE GASTRIC EMPTYING STUDY Findings: For the purposes of this gastric emptying study, 0.5 mCi of technetium 99m colloid was labeled to food and administered to the patient, orally. The patient was imaged in the supine position, and images were obtained sequentially to evaluate gastric imaging. Regions of interest were selected over the stomach as well as over appropriate background regions prior to calculating the gastric emptying half-time curve. Imaging was taken out to 90 minutes. The gastric emptying half time for this procedure, as calculated, was within normal limits (as the normal half-life ranges between 45 and 110 minutes, depending on the specific nuclear medicine laboratory standards). No radiotracer gastroesophageal reflux was identified on this examination. IMPRESSION: Normal gastric emptying half-time of 42 minutes. Reported By:
[2018-12-24] MEDS: XANAX PO PRN (15:00)
[2018-12-24] MEDS: SNACK - Diabetic Appropriate PO SCH (20:30)
[2018-12-24] MEDS: REMERON PO SCH (21:24)
--- NOTE | 2018-12-24 21:46 | PCM.PROG ---
Progress Note - Progress Note for Day of Date of Exam: 12/24/18 - Subjective Subjective: WAS ADMITTED FOR DKA, ACUTE DEHYDRATION, LEUKOCYTOSIS, SEPSIS, AND RENAL FAILURE. TODAY, HE IS ALERT AND ORIENTED, LYING IN BED ON MORNING ROUNDS. HE CONTINUES WITH WEAKNESS AND ABDOMINAL SALMON TODAY. HE REPORTS AN INCREASED APPETITE. STAFF REPORTS HAVING TO ADMINISTER AN AMP OF D50 AFTER PATIENTS GLUCOSE DROPPED TO 50. ON EXAMINATION, HE CONTINUES TO BE TACHYCARDIC WITH HR IN THE LOWER 100s. LUNGS ARE NOTED WITH DIMINISHED LUNG SOUNDS THROUGHOUT. ABDOMEN IS FLAT, SOFT, AND NOTED WITH DIFFUSE TENDERNESS. HYPOACTIVE BOWEL SOUNDS ARE NOTED. HIS VITALS THIS MORNING ARE 98.9-006-50-100%-120/77. LABS WERE OBTAINED. ABNORMAL LAB VALUES INCLUDE THE FOLLOWING: RBC 3.28, HGB 9.1, HCT 27.1, CHLORIDE 108, CREATININE 0.66, CALCIUM 8.0, ALT 9, TOTAL PROTEIN 5.9, ALBUMIN 2.4. ABG REVEALED: PH 7.540, PC02 29.0, P02 90.0, HC03 24.8, 02 SATURATION 98.0, BASE EXCESS 2.9. BLOOD CULTURES ARE PENDING. SPUTUM CULTURE PENDING. HE IS CURRENTLY RECEIVING IV VANCOMYCIN, IV ZOSYN, HUMULIN R SLIDING SCALE, NORMAL SALINE WITH 20MEQ KCL AT 200ML/HR. HE IS SCHEDULED FOR A GASTRIC EMPTYING TODAY AROUND 12:00. WE WILL CHANGE IV FLUIDS TO D5W WITH 20MEQ KCL AT 125ML/HR. OTHERWISE, WE WILL CONTINUE WITH CURRENT PLAN OF CARE TODAY. WE WILL FOLLOW UP WITH AM LABS AND ABG AND CONTINUE TO MONITOR. - Past Medical Family Social History Past Med/Fam/Surg Hx: No changes since H&P Allergies: Allergies No Known Drug Allergies Allergy (Verified 11/03/18 01:58) - Review of Systems ROS: No change since H&P - Vital Signs and I&O's Vital Signs: Temperature 98.3 F Pulse Rate [Left Brachial] 105 Pulse Rate 105 Respiratory Rate 15 Blood Pressure [Left Arm] 166/107 Blood Pressure [Right Arm] 132/81 Blood Pressure 116/79 O2 Sat by Pulse Oximetry 100 Intake and Output: Intake & Output 12/22/18 12/23/18 12/24/18 12/25/18 11:59 11:59 11:59 11:59 Intake Total 7193 / 7193 5915 / 5915 4800 / 4800 1505 / 1505 Output Total 9125 / 9125 6400 / 6400 3400 / 3400 875 / 875 Balance -1932 / -1932 -485 / -485 1400 / 1400 630 / 630 - Physical Exam Oriented: Normal Eyes: Normal Ear: Normal Nose: Normal Throat: Normal Respiratory: Generalized, Diminished Cardiovascular: Tachycardia. negative: S3, S4, Murmur : Normal Auscultation: Bowel Sounds: Decreased Tenderness: Diffuse, Severe. negative: Rebound, Guarding, Rigidity Skin: Decreased Turgur Musculoskeletal: Normal Psychiatric: Normal Mood Description: Calm Affect: Normal Speech Pattern: Clear, Appropriate - Laboratory and Diagnostics Result Diagrams: 12/24/18 03:59 12/24/18 10:15 Labs: 12/16/18 20:35 Blood Blood Culture - Final 12/16/18 20:30 Blood Blood Culture - Final 12/16/18 07:35 Blood Blood Culture - Final 12/16/18 07:28 Blood Blood Culture - Final 12/18/18 12:00 Sputum - Expectorated Sputum Sputum Culture - Final 12/18/18 12:00 Sputum - Expectorated Sputum - Final Laboratory WBC 7.8 X10^3/uL (3.6-10.0) 12/24/18 03:59 RBC 3.28 X10^6/uL (4.7-6.0) L 12/24/18 03:59 Hgb 9.1 g/dL (13.5-18.0) L D 12/24/18 03:59 Hct 27.1 % (42.0-54.0) L 12/24/18 03:59 MCV 82.6 fL (80.0-100.0) 12/24/18 03:59 MCH 27.7 pg (27.0-34.0) 12/24/18 03:59 MCHC 33.5 g/dL (33.0-35.0) 12/24/18 03:59 RDW 15.7 % (11.6-16.5) 12/24/18 03:59 Plt Count 275 X10^3/uL (150.0-450.0) 12/24/18 03:59 Plt Count Comment Adequate (ADEQUATE) 12/24/18 03:59 MPV 7.4 fL (7.4-11.0) 12/24/18 03:59 Neut % (Auto) 44.2 % (42.0-75.0) 12/24/18 03:59 Lymph % (Auto) 42.4 % (21.0-51.0) 12/24/18 03:59 [place] % (Auto) 10.7 % (0.0-13.0) 12/24/18 03:59 Eos % (Auto) 2.5 % (0.9-2.9) 12/24/18 03:59 Baso % (Auto) 0.2 % (0.2-1.0) 12/24/18 03:59 Neut # (Auto) 3.5 x10^3/uL (2.2-4.8) 12/24/18 03:59 Lymph # (Auto) 3.3 X10^3/uL (1.3-2.9) H 12/24/18 03:59 [place] # (Auto) 0.8 x10^3/uL (0.3-0.8) 12/24/18 03:59 Eos # (Auto) 0.2 x10^3/uL (0.0-0.2) 12/24/18 03:59 Baso # (Auto) 0.0 X10^3/uL (0.0-0.1) 12/24/18 03:59 Absolute Nucleated RBC 0.0 /100WBC 12/24/18 03:59 Total Counted 100 12/17/18 05:20 Neutrophils % (Manual) 86 % (39-76) H 12/17/18 05:20 Band Neutrophils % 2 % (0-10) 12/16/18 06:35 Lymphocytes % (Manual) 10 % (13-43) L 12/17/18 05:20 Monocytes % (Manual) 4 % (4-9) 12/17/18 05:20 Plt Clumps, EDTA Rare 12/19/18 06:00 Plt Morphology Comment Normal (NORMAL) 12/24/18 03:59 RBC Morphology Abnormal (NORMAL) 12/24/18 03:59 Hypochromasia Slight A 12/24/18 03:59 Poikilocytosis Slight A 12/20/18 04:38 PT 14.9 SECONDS (11.8-14.3) 12/16/18 13:00 INR Target Range - 12/16/18 13:00 INR 1.21 (0.8-1.3) 12/16/18 13:00 APTT 23.1 SECONDS (22.9-36.5) 12/16/18 13:00 PTT Comment - 12/16/18 13:00 Sample Site Left brachial 12/24/18 08:20 ABG pH 7.460 (7.35-7.45) H 12/24/18 08:20 ABG pCO2 39.0 mmHg (35.0-45.0) 12/24/18 08:20 ABG pO2 91.0 mmHg (80.0-100.0) 12/24/18 08:20 ABG HCO3 27.7 mmol/L (22-26) H 12/24/18 08:20 ABG O2 Saturation 97.0 % (90-100) 12/24/18 08:20 ABG Base Excess 3.7 mmol/L (-2.0-2.0) H 12/24/18 08:20 Geoff Test Na 12/24/18 08:20 A-a Gradient 10.0 mmHg 12/24/18 08:20 FiO2 21.0 12/24/18 08:20 Blood Gas Comments Marva well aw 12/24/18 08:20 Sodium 143 mmol/L (136-145) 12/24/18 03:59 Corrected Sodium TNP 12/24/18 03:59 Potassium 3.6 mmol/L (3.5-5.1) 12/24/18 03:59 Chloride 108 mmol/L (98-107) H 12/24/18 03:59 Carbon Dioxide 28.4 mmol/L (21-32) 12/24/18 03:59 BUN 7 mg/dL (7-18) 12/24/18 03:59 Creatinine 0.66 mg/dL (0.70-1.30) L 12/24/18 03:59 Est GFR (MDRD) Af Amer > 60 (>60) 12/24/18 03:59 Est GFR (MDRD) Non-Af > 60 (>60) 12/24/18 03:59 Glucose 84 mg/dL (65-99) 12/24/18 10:15 POC Glucose (mg/dL) 394 mg/dL (65-99) H 12/24/18 20:57 Lactic Acid 1.7 mmol/L (0.4-2.0) 12/17/18 05:20 Calcium 8.0 mg/dL (8.5-10.1) L 12/24/18 03:59 Corrected Calcium 9.3 mg/dL (8.5-10.1) 12/24/18 03:59 Phosphorus 6.2 mg/dL (2.6-4.7) H 12/16/18 06:35 Magnesium 1.5 mg/dL (1.7-2.9) L 12/23/18 04:01 Total Bilirubin 0.20 mg/dL (0.2-1.0) 12/24/18 03:59 AST 15 Units/L (15-37) 12/24/18 03:59 ALT 9 Units/L (12-78) L 12/24/18 03:59 Alkaline Phosphatase 55 Units/L (46-116) 12/24/18 03:59 Total Protein 5.9 g/dL (6.4-8.2) L 12/24/18 03:59 Albumin 2.4 g/dL (3.4-5.0) L 12/24/18 03:59 Globulin 3.5 g/dL (2.5-4.5) 12/24/18 03:59 Albumin/Globulin Ratio 0.7 Ratio (1.1-2.1) L 12/24/18 03:59 Amylase 119 Units/L (25-115) H 12/16/18 06:35 Lipase 129 Units/L (73-393) 12/16/18 06:35 Cortisol 64.2 ug/dL 12/16/18 06:35 Specimen Type Catherized urine 12/16/18 07:16 Urine Color Pale yellow (YELLOW) 12/16/18 07:16 Urine Appearance Clear (CLEAR) 12/16/18 07:16 Urine pH 5.0 (5.0 - 8.0) 12/16/18 07:16 Ur Specific [place] 1.020 (1.000-1.030) 12/16/18 07:16 Urine Protein Negative (NEGATIVE) 12/16/18 07:16 Urine Glucose (UA) 4+ (NEGATIVE) 12/16/18 07:16 Urine Ketones 4+ (NEGATIVE) 12/16/18 07:16 Urine Occult Blood Negative (NEGATIVE) 12/16/18 07:16 Urine Nitrite Negative (NEGATIVE) 12/16/18 07:16 Urine Bilirubin Negative (NEGATIVE) 12/16/18 07:16 Urine Urobilinogen Normal (NORMAL) 12/16/18 07:16 Ur Leukocyte Esterase Negative (NEGATIVE) 12/16/18 07:16 Vancomycin Trough 13.4 ug/mL (15-20) L 12/23/18 20:32 Acetone, Semi-Quant Negative (NEGATIVE) 12/24/18 20:54 - Plan (1) DKA (diabetic ketoacidoses) Status: Acute Qualifiers: Diabetes mellitus type: type 1 Diabetes mellitus complication detail: without coma Qualified Code(s): E10.10 - Type 1 diabetes mellitus with ketoacidosis without coma Plan: HUMULIN R SLIDING SCALE, IV FLUIDS, MONITOR OTBS, CONTINUE HOME MEDS , CONTINUE TO MONITOR (2) Sepsis Status: Acute Qualifiers: Sepsis type: sepsis due to unspecified organism Sepsis acute organ dysfunction status: with acute organ dysfunction Severe sepsis acute organ dysfunction type: acute renal failure Acute renal failure type: with acute tubular necrosis Severe sepsis shock status: unspecified Qualified Code(s): A41.9 - Sepsis, unspecified organism; R65.20 - Severe sepsis without septic shock; N17.0 - Acute kidney failure with tubular necrosis Plan: IV ZOSYN, IV VANCOMYCIN, IV FLUIDS, CONTINUE TO MONITOR (3) Pneumonia Status: Acute Qualifiers: Pneumonia type: due to unspecified organism Laterality: right Lung loca tion: lower lobe of lung Qualified Code(s): J18.1 - Lobar pneumonia, unspecified organism Plan: IV FLUIDS, IV ANTIBIOTICS, CONTINUE TO MONITOR (4) Dehydration Status: Acute Plan: IV FLUIDS, CONTINUE TO MONITOR (5) Renal failure Status: Acute Qualifiers: Renal failure chronicity: acute Plan: NORMAL SALINE, CONTINUE TO MONITOR (6) Gastroparesis due to DM Status: Acute Plan: REMERON 30MG PO HS, CONTINUE TO MONITOR, GASTRIC EMPTYING TODAY (7) Hypertension Status: Chronic Qualifiers: Hypertension type: essential hypertension Qualified Code(s): I10 - Essential (primary) hypertension Plan: CATAPRES 0.1MG PO Q6H PRN, APRESOLINE IV
[2018-12-25] MEDS: MORPHINE SULFATE INJ 2 MG INJ IVP PRN ×3 (03:33→11:50)
[2018-12-25 05:06] LABS: BASOPHILS % (AUTO) 0.3 % (0.2-1.0); EOSINOPHILS # (AUTO) 0.2 x10^3/uL (0.0-0.2); EOSINOPHILS % (AUTO) 2.3 % (0.9-2.9); HEMATOCRIT 28.1 % (42.0-54.0); HEMOGLOBIN 9.3 g/dL (13.5-18.0); LYMPHOCYTES # (AUTO) 2.5 X10^3/uL (1.3-2.9); LYMPHOCYTES % (AUTO) 36.4 % (21.0-51.0); MEAN CORPUSCULAR HEMOGLOBIN 27.4 pg (27.0-34.0); MEAN CORPUSCULAR HGB CONC 33.2 g/dL (33.0-35.0); MEAN CORPUSCULAR VOLUME 82.4 fL (80.0-100.0); MEAN PLATELET VOLUME 6.8 fL (7.4-11.0); MONOCYTES # (AUTO) 0.8 x10^3/uL (0.3-0.8); MONOCYTES % (AUTO) 11.7 % (0.0-13.0); NEUTROPHILS # (AUTO) 3.3 x10^3/uL (2.2-4.8); NEUTROPHILS % (AUTO) 49.3 % (42.0-75.0); PLATELET COUNT 353 X10^3/uL (150.0-450.0); RED BLOOD COUNT 3.41 X10^6/uL (4.7-6.0); RED CELL DISTRIBUTION WIDTH 16.1 % (11.6-16.5); WHITE BLOOD COUNT 6.7 X10^3/uL (3.6-10.0)
[2018-12-25 05:16] LABS: VANCOMYCIN,TROUGH 17.7 ug/mL (15-20)
[2018-12-25 05:21] LABS: ANISOCYTOSIS SLIGHT; PLATELET MORPHOLOGY COMMENT NORMAL (NORMAL)
[2018-12-25 05:25] LABS: ALANINE AMINOTRANSFERASE 20 Units/L (12-78); ALBUMIN 2.8 g/dL (3.4-5.0); ALKALINE PHOSPHATASE 62 Units/L (46-116); ASPARTATE AMINO TRANSFERASE 21 Units/L (15-37); BLOOD UREA NITROGEN 6 mg/dL (7-18); CALCIUM 8.4 mg/dL (8.5-10.1); CARBON DIOXIDE 26.8 mmol/L (21-32); CHLORIDE 101 mmol/L (98-107); COR CA(FOR HYPOALB) 9.4 mg/dL (8.5-10.1); COR NA(FOR HYPERGLY) 141 mmol/L (136-145); CREATININE 0.78 mg/dL (0.70-1.30); SODIUM 137 mmol/L (136-145); TOTAL PROTEIN 6.5 g/dL (6.4-8.2); eGFR NON BLACK RACES > 60 (>60)
[2018-12-25] MEDS: VANCOMYCIN HCL 1 GM VIAL 1 G in NS 250 ML IV 250 ML IV SCH (05:29)
[2018-12-25] MEDS: ZOSYN VIAL 3.375 GRAMS 3.375 G in NS 100 ML IV + SPIKE MINIBAG* 100 ML IV SCH (05:35)
[2018-12-25] MEDS ORDERED: D5W + KCL 20 MEQ/L 1,000 ML IV SCH (05:37)
[2018-12-25 06:41] LABS: ABG BASE EXCESS 6.1 mmol/L (-2.0-2.0)
[2018-12-25 06:42] LABS: ABG HCO3 30.6 mmol/L (22-26)
[2018-12-25] MEDS: HumaLOG SC SCH ×2 (07:15→11:32)
[2018-12-25] MEDS: XANAX PO PRN (07:54)
[2018-12-25] MEDS: LEVSIN/MAALOX/LIDOC VISC PO SCH (08:00)
[2018-12-25] MEDS: LINZESS PO SCH (08:01)
[2018-12-25] MEDS: METHADONE HCL PO SCH (08:02)
[2018-12-25] MEDS: LEVEMIR SC SCH (08:03)
[2018-12-25] MEDS: PEPCID 20 MG IV PREMIX* 20 MG/50 ML BAG IV SCH (08:03)
[2018-12-25] MEDS: LOPRESSOR TAB 25 MG PO SCH (08:03)
[2018-12-25] MEDS: PROTONIX INJ 40 MG VIAL IVP SCH (08:03)
[2018-12-25] MEDS: DUONEB 0.5 MG/3 MG NEB SCH (08:56)
[2018-12-25 11:05] VITALS: BP 117/76
== END 2018-12-25 13:00 | disposition home or self-care (01) | DRG 637 ==
LOC: ER 06:04 → ICU 07:42
PROVIDERS: ADMIT Internal Medicine; ATTEND Internal Medicine
DX: R10.84 Generalized abdominal pain; A41.9 Sepsis, unspecified organism; N17.0 Acute kidney failure with tubular necrosis; J18.8 Other pneumonia, unspecified organism; E10.43 Type 1 diabetes mellitus with diabetic autonomic (poly)neuropathy; E10.10 Type 1 diabetes mellitus with ketoacidosis without coma; R94.31 Abnormal electrocardiogram [ECG] [EKG]; R65.20 Severe sepsis without septic shock; K31.84 Gastroparesis; R11.2 Nausea with vomiting, unspecified; E86.0 Dehydration; R06.02 Shortness of breath; K59.09 Other constipation
CPT/HCPCS: 36415; 36600; 51702; 71010; 71045; 71260; 74022; 74177; 78264; 80053; 80202; 81003; 82009; 82150; 82533; 82565; 82803; 82947; 83605; 83690; 83735; 84100; 84132; 85025; 85610; 85730; 87040; 87070; 87205; 93005; 94640; 96365; 96367; 96374; 96375; 99283; A4222; C9113; S0028; S0109; J0360; J1642; J1815; J1817; J2270; J2405; J2543; J2550; J3370; J3475; J3480; J3490; J7030; J7040; J7050; J7060; J7620; S5012

== ENCOUNTER 2019-03-23 07:51 | Inpatient (IN) ==
[2019-03-23 07:58] VITALS: BMI 15.6
[2019-03-23 08:25] LABS: BASOPHILS # (AUTO) 0.1 X10^3/uL (0.0-0.1); BASOPHILS % (AUTO) 0.6 % (0.2-1.0); HEMATOCRIT 37.1 % (42.0-54.0); LYMPHOCYTES # (AUTO) 1.7 X10^3/uL (1.3-2.9); LYMPHOCYTES % (AUTO) 6.6 % (21.0-51.0); MEAN CORPUSCULAR HGB CONC 29.8 g/dL (33.0-35.0); MEAN CORPUSCULAR VOLUME 90.6 fL (80.0-100.0); MONOCYTES # (AUTO) 0.4 x10^3/uL (0.3-0.8); MONOCYTES % (AUTO) 1.4 % (0.0-13.0); NEUTROPHILS # (AUTO) 23.3 x10^3/uL (2.2-4.8); NEUTROPHILS % (AUTO) 91.4 % (42.0-75.0); PLATELET COUNT 443 X10^3/uL (150.0-450.0); RED BLOOD COUNT 4.09 X10^6/uL (4.7-6.0); RED CELL DISTRIBUTION WIDTH 16.1 % (11.6-16.5); WHITE BLOOD COUNT 25.5 X10^3/uL (3.6-10.0)
[2019-03-23 08:38] LABS: ALANINE AMINOTRANSFERASE 13 Units/L (12-78); ALBUMIN 3.8 g/dL (3.4-5.0); ALKALINE PHOSPHATASE 106 Units/L (46-116); ASPARTATE AMINO TRANSFERASE 11 Units/L (15-37); BLOOD UREA NITROGEN 31 mg/dL (7-18); CALCIUM 10.3 mg/dL (8.5-10.1); CHLORIDE 94 mmol/L (98-107); CREATININE 1.89 mg/dL (0.70-1.30); SODIUM 134 mmol/L (136-145); TOTAL PROTEIN 9.3 g/dL (6.4-8.2); eGFR NON BLACK RACES 43 (>60)
[2019-03-23 08:39] LABS: ABG BASE EXCESS -22.6 mmol/L (-2.0-2.0)
[2019-03-23 08:41] LABS: ABG HCO3 3.8 mmol/L (22-26)
[2019-03-23] MEDS ORDERED: NS 1000 ML 1,000 ML ONE (08:41)
[2019-03-23] MEDS ORDERED: SODIUM BICARBONATE 8.4% INJ ADULT ONE (08:42)
[2019-03-23 08:49] LABS: LACTIC ACID 7.6 mmol/L (0.4-2.0)
[2019-03-23 08:51] LABS: BAND NEUTROPHILS % 6 % (0-10)
[2019-03-23 08:52] LABS: PLATELET MORPHOLOGY COMMENT NORMAL (NORMAL)
[2019-03-23 08:57] LABS: SERUM ACETONE SMALL (NEGATIVE)
--- NOTE | 2019-03-23 08:59 | RAD ---
Examination: AP chest History: SOB Comparison 03/04/2019 Findings: Normal heart size with essentially clear lungs and pleural spaces. Endotracheal and NG tubes, and right subclavian injection port, have been removed since prior. Impression: No acute chest findings. Reported By:
[2019-03-23] MEDS ORDERED: CALCIUM GLUCONATE 10% IV ONE ×2 (09:03→09:12)
[2019-03-23] MEDS ORDERED: SODIUM BICARBONATE 8.4% INJ ADULT IVP ONE (09:03)
[2019-03-23] MEDS ORDERED: HumuLIN R SUBCUT PRN (09:03)
[2019-03-23 09:05] LABS: COR NA(FOR HYPERGLY) 150 mmol/L (136-145)
[2019-03-23 09:06] LABS: CARBON DIOXIDE 7.9 mmol/L (21-32)
[2019-03-23] MEDS ORDERED: NS 1000 ML 1,000 ML with SODIUM BICARBONATE 8.4% INJ ADULT 50 ML IV ONE ×2 (09:10)
--- NOTE | 2019-03-23 09:47 | DR.GENAD ---
HPI Time Seen Time Seen by Provider: 03/23/19 08:26 PCP Primary Care Physician: KRYS Complaint/Symptoms Chief Complaint Doctors Comments: A 38 y/o male presenting via EMS for a call by his mother stating he vomited early this morning. He was discharged from [facility] in [place] on 03/11/19 for Septicemia/Fungemia, DKA treatment. Information is provided by himself and his mother. Chief Complaint:: MOTHER CALLED EMS FOR PT VOMITING. UPON ARRIVAL PT IS LETHARGIC AND GLUCOSE ELEVATED. PT GLUCOSE HI WITH MONITOR, STAT GLUCOSE LAB ORDERED. PT VERY WEAK, PT WILL ANSWER QUESTION BUT DROWSY. Nurses notes reviewed Nurses Notes Review: Yes Source History Provided: Patient and EMS Mode of Arrival Mode of Arrival: Stretcher Timing Onset of Chief Complaint: 03/23/19 Came on: Suddenly PMH PMH Past Medical History: Yes Past Medical History: Diabetes Past Surgical History: Yes Surgical History: Other Family History History of Family Medical Conditions: Yes Family Medical History: Diabetes Mellitus, Sudden Cardiac and Hypertension Social History Do you use any recreational Drugs:: No Lives With: Family Lives Where: Home infectious screening In the last 2 months have you had wt loss of >10#?: NO Have you had fever, night sweats or hemotysis?: No Have you traveled outside the country in the last 6 months?: No Isolation: Standard ROS Review of Systems Constitutional: Malaise and Weakness Eyes: No Symptoms Reported ENTM: No Symptoms Reported Respiratoy: No Symptoms Reported Cardiovascular: No Symptoms Reported Gastrointestinal/Abdominal: No Symptoms Reported Genitourinary: No Symptoms Reported Neurological: No Symptoms Reported Musculoskeletal: No Symptoms Reported Integumentary: No Symptoms Reported Hematologic/Lymphatic: No Symptoms Reported Endocrine: No Symptoms Reported Psychiatric: No Symptoms Reported PE Vital Signs Vitals: Temperature 97.1 F Pulse Rate 118 Respiratory Rate 45 Blood Pressure [Left Arm] 105/56 Blood Pressure 86/50 O2 Sat by Pulse Oximetry 100 General Limitations: No Limitations General Appearance: Alert, In No Apparent Distress and Other (emaciated/gaunt) Head Head Exam: Normal Inspection, Atraumatic and Normocephalic Eyes Eye exam: Normal Appearance, PERRL and EOMI ENT ENT Exam: Normal External Ear Exam, Mucous Membranes Dry and TM's Normal Bilaterally Neck Neck Exam: Normal Inspection, Full ROM and Trachea Midline Chest Chest Inspection: Normal Inspection and Symmetric Chest Wall Rise Respiratory Respiratory Exam: Normal Lung Sounds Bilat Cardiovascular Cardiovascular Exam: Regular Rate, Normal Rhythm, +S1 and +S2 Abdominal Exam Abdominal Exam: Normal Inspection, Normal Bowel Sounds and Soft Extremities Extremities Exam: Normal Inspection and Full ROM Back Back Exam: Normal Inspection and Full ROM Neurologic Neurological Exam: Alert and CN II-XII Intact Psychiatric Psychiatric Exam: Normal Affect and Flat Affect Skin Skin Exam: Dry and Normal Color COURSE Reevaluation 1st: Unchanged Consultation Consultation Comments: Presentation and findings were discussed with the hospitalist (Dr. Franks), he agrees with the recommendation for admission. Education/Counseling Education/Counseling: Patient, Family, Education and Counseling Educated On: Treatment, Diagnosis, Prognosis and Needs for Follow Up ROR Labs Reviewed Laboratory Results Reviewed?: Yes Result Diagrams: 03/23/19 08:15 03/23/19 08:15 Laboratory: WBC 25.5 X10^3/uL (3.6-10.0) H 03/23/19 08:15 RBC 4.09 X10^6/uL (4.7-6.0) L 03/23/19 08:15 Hgb 11.0 g/dL (13.5-18.0) L 03/23/19 08:15 Hct 37.1 % (42.0-54.0) L 03/23/19 08:15 MCV 90.6 fL (80.0-100.0) 03/23/19 08:15 MCH 27.0 pg (27.0-34.0) 03/23/19 08:15 MCHC 29.8 g/dL (33.0-35.0) L 03/23/19 08:15 RDW 16.1 % (11.6-16.5) 03/23/19 08:15 Plt Count 443 X10^3/uL (150.0-450.0) 03/23/19 08:15 Plt Count Comment Adequate (ADEQUATE) 03/23/19 08:15 MPV 8.0 fL (7.4-11.0) 03/23/19 08:15 Neut % (Auto) 91.4 % (42.0-75.0) H 03/23/19 08:15 Lymph % (Auto) 6.6 % (21.0-51.0) L 03/23/19 08:15 [place] % (Auto) 1.4 % (0.0-13.0) 03/23/19 08:15 Eos % (Auto) 0.0 % (0.9-2.9) L 03/23/19 08:15 Baso % (Auto) 0.6 % (0.2-1.0) 03/23/19 08:15 Neut # (Auto) 23.3 x10^3/uL (2.2-4.8) H 03/23/19 08:15 Lymph # (Auto) 1.7 X10^3/uL (1.3-2.9) 03/23/19 08:15 [place] # (Auto) 0.4 x10^3/uL (0.3-0.8) 03/23/19 08:15 Eos # (Auto) 0.0 x10^3/uL (0.0-0.2) 03/23/19 08:15 Baso # (Auto) 0.1 X10^3/uL (0.0-0.1) 03/23/19 08:15 Absolute Nucleated RBC 0.0 /100WBC 03/23/19 08:15 Total Counted 100 03/23/19 08:15 Neutrophils % (Manual) 86 % (39-76) H 03/23/19 08:15 Band Neutrophils % 6 % (0-10) 03/23/19 08:15 Lymphocytes % (Manual) 8 % (13-43) L 03/23/19 08:15 Plt Morphology Comment Normal (NORMAL) 03/23/19 08:15 RBC Morphology Normal (NORMAL) 03/23/19 08:15 Sample Site Rb 03/23/19 08:31 ABG pH 7.150 (7.35-7.45) L* 03/23/19 08:31 ABG pCO2 11.0 mmHg (35.0-45.0) L* 03/23/19 08:31 ABG pO2 111.0 mmHg (80.0-100.0) H 03/23/19 08:31 ABG HCO3 3.8 mmol/L (22-26) L* 03/23/19 08:31 ABG O2 Saturation 97.0 % (90-100) 03/23/19 08:31 ABG Base Excess -22.6 mmol/L (-2.0-2.0) L 03/23/19 08:31 Geoff Test Na 03/23/19 08:31 A-a Gradient 25.0 mmHg 03/23/19 08:31 FiO2 21.0 03/23/19 08:31 Blood Gas Comments Pt reece well. cdn 03/23/19 08:31 Sodium 134 mmol/L (136-145) L 03/23/19 08:15 Corrected Sodium 150 mmol/L (136-145) H 03/23/19 08:15 Potassium 6.3 mmol/L (3.5-5.1) H* 03/23/19 08:15 Chloride 94 mmol/L (98-107) L 03/23/19 08:15 Carbon Dioxide 7.9 mmol/L (21-32) L* 03/23/19 08:15 BUN 31 mg/dL (7-18) H 03/23/19 08:15 Creatinine 1.89 mg/dL (0.70-1.30) H 03/23/19 08:15 Est GFR (MDRD) Af Amer 52 (>60) L 03/23/19 08:15 Est GFR (MDRD) Non-Af 43 (>60) L 03/23/19 08:15 Glucose 782 mg/dL (65-99) H* 03/23/19 08:15 Lactic Acid 7.6 mmol/L (0.4-2.0) H 03/23/19 08:15 Calcium 10.3 mg/dL (8.5-10.1) H 03/23/19 08:15 Corrected Calcium TNP 03/23/19 08:15 Total Bilirubin 1.00 mg/dL (0.2-1.0) 03/23/19 08:15 AST 11 Units/L (15-37) L 03/23/19 08:15 ALT 13 Units/L (12-78) 03/23/19 08:15 Alkaline Phosphatase 106 Units/L (46-116) 03/23/19 08:15 Total Protein 9.3 g/dL (6.4-8.2) H 03/23/19 08:15 Albumin 3.8 g/dL (3.4-5.0) 03/23/19 08:15 Globulin 5.5 g/dL (2.5-4.5) H 03/23/19 08:15 Albumin/Globulin Ratio 0.7 Ratio (1.1-2.1) L 03/23/19 08:15 Specimen Type Random urine 03/23/19 09:30 Urine Color Yellow (YELLOW) 03/23/19 09:30 Urine Appearance Clear (CLEAR) 03/23/19 09:30 Urine pH 5.0 (5.0 - 8.0) 03/23/19 09:30 Ur Specific [place] 1.020 (1.000-1.030) 03/23/19 09:30 Urine Protein 1+ (NEGATIVE) 03/23/19 09:30 Urine Glucose (UA) 4+ (NEGATIVE) 03/23/19 09:30 Urine Ketones 4+ (NEGATIVE) 03/23/19 09:30 Urine Occult Blood 3+ (NEGATIVE) 03/23/19 09:30 Urine Nitrite Negative (NEGATIVE) 03/23/19 09:30 Urine Bilirubin Negative (NEGATIVE) 03/23/19 09:30 Urine Urobilinogen Normal (NORMAL) 03/23/19 09:30 Ur Leukocyte Esterase Negative (NEGATIVE) 03/23/19 09:30 Urine RBC 0-2 /HPF (0-3) 03/23/19 09:30 Urine WBC None seen /HPF (0-5) 03/23/19 09:30 Ur Squamous Epith Cells Negative /HPF (NEGATIVE) 03/23/19 09:30 Urine Bacteria Negative /HPF (NEGATIVE) 03/23/19 09:30 Urine Mucus Few /HPF (NEGATIVE) 03/23/19 09:30 Ur Culture Indicated? No/not indicated 03/23/19 09:30 Acetone, Semi-Quant Small (NEGATIVE) H 03/23/19 08:15 XRAY XRAY Interpreted by: Self XRAY Findings: CXR: Normal Opioid Opioid Risk Tool Family Hx of Substance Abuse: Illegal Drugs Personal Hx of Substance Abuse: Illegal Drugs Age (Ajit box if 16-45): Yes History of Preadolescent Sexual Abuse: No Psychological Disease: PTSD Total: 2 Total Score Risk Category: Low Risk Copyright: Fady ARTHUR predicting aberrant behaviors Diagnosis Discharge Problem: Acidosis, lactic, Hyperkalemia DKA, type 1 Qualifiers: Diabetes mellitus complication detail: without coma Qualified Code(s): E10.10 - Type 1 diabetes mellitus with ketoacidosis without coma Leukocytosis Qualifiers: Leukocytosis type: unspecified Qualified Code(s): D72.829 - Elevated white blood cell count, unspecified Instructions Forms: Excuse From Work Patient Portal
[2019-03-23 09:49] LABS: BILIRUBIN,URINE NEGATIVE (NEGATIVE); BLOOD/HEMOGLOBIN,URINE 3+ (NEGATIVE); GLUCOSE, URINE 4+ (NEGATIVE); KETONES,URINE 4+ (NEGATIVE); LEUKOCYTE ESTERASE ,URINE NEGATIVE (NEGATIVE); NITRITES,URINE NEGATIVE (NEGATIVE); PROTEIN,URINE 1+ (NEGATIVE); UROBILINOGEN,URINE NORMAL (NORMAL)
[2019-03-23 09:50] LABS: APPEARANCE,URINE CLEAR (CLEAR); COLOR,URINE YELLOW (YELLOW)
[2019-03-23 09:57] LABS: BACTERIA,URINE NEGATIVE /HPF (NEGATIVE); RBC,URINE 0-2 /HPF (0-3); SQUAMOUS EPITHELIAL CELL,UR NEGATIVE /HPF (NEGATIVE)
[2019-03-23 09:58] LABS: MUCUS,URINE FEW /HPF (NEGATIVE)
[2019-03-23] MEDS ORDERED: NS 100 ML IV 100 ML IV ONE ×3 (10:44→22:07)
--- NOTE | 2019-03-23 11:35 | DR.GENAD ---
HPI Time Seen Time Seen by Provider: 03/23/19 08:26 PCP Primary Care Physician: KRYS Complaint/Symptoms Chief Complaint:: MOTHER CALLED EMS FOR PT VOMITING. UPON ARRIVAL PT IS LETHARGIC AND GLUCOSE ELEVATED. PT GLUCOSE HI WITH MONITOR, STAT GLUCOSE LAB ORDERED. PT VERY WEAK, PT WILL ANSWER QUESTION BUT DROWSY. Nurses notes reviewed Nurses Notes Review: Yes Source History Provided: Patient and EMS Mode of Arrival Mode of Arrival: Stretcher Timing Onset of Chief Complaint: 03/23/19 Came on: Suddenly PMH PMH Past Medical History: Yes Past Medical History: Diabetes Past Surgical History: Yes Surgical History: Other Family History History of Family Medical Conditions: Yes Family Medical History: Diabetes Mellitus, Sudden Cardiac and Hypertension Social History Do you use any recreational Drugs:: No Lives With: Family Lives Where: Home infectious screening In the last 2 months have you had wt loss of >10#?: NO Have you had fever, night sweats or hemotysis?: No Have you traveled outside the country in the last 6 months?: No Isolation: Standard PE Vital Signs Vitals: Temperature 97.1 F Pulse Rate 113 Respiratory Rate 42 Blood Pressure [Left Arm] 105/56 Blood Pressure 78/46 O2 Sat by Pulse Oximetry 100 ROR Labs Reviewed Result Diagrams: 03/23/19 08:15 03/23/19 08:15 Laboratory: WBC 25.5 X10^3/uL (3.6-10.0) H 03/23/19 08:15 RBC 4.09 X10^6/uL (4.7-6.0) L 03/23/19 08:15 Hgb 11.0 g/dL (13.5-18.0) L 03/23/19 08:15 Hct 37.1 % (42.0-54.0) L 03/23/19 08:15 MCV 90.6 fL (80.0-100.0) 03/23/19 08:15 MCH 27.0 pg (27.0-34.0) 03/23/19 08:15 MCHC 29.8 g/dL (33.0-35.0) L 03/23/19 08:15 RDW 16.1 % (11.6-16.5) 03/23/19 08:15 Plt Count 443 X10^3/uL (150.0-450.0) 03/23/19 08:15 Plt Count Comment Adequate (ADEQUATE) 03/23/19 08:15 MPV 8.0 fL (7.4-11.0) 03/23/19 08:15 Neut % (Auto) 91.4 % (42.0-75.0) H 03/23/19 08:15 Lymph % (Auto) 6.6 % (21.0-51.0) L 03/23/19 08:15 [place] % (Auto) 1.4 % (0.0-13.0) 03/23/19 08:15 Eos % (Auto) 0.0 % (0.9-2.9) L 03/23/19 08:15 Baso % (Auto) 0.6 % (0.2-1.0) 03/23/19 08:15 Neut # (Auto) 23.3 x10^3/uL (2.2-4.8) H 03/23/19 08:15 Lymph # (Auto) 1.7 X10^3/uL (1.3-2.9) 03/23/19 08:15 [place] # (Auto) 0.4 x10^3/uL (0.3-0.8) 03/23/19 08:15 Eos # (Auto) 0.0 x10^3/uL (0.0-0.2) 03/23/19 08:15 Baso # (Auto) 0.1 X10^3/uL (0.0-0.1) 03/23/19 08:15 Absolute Nucleated RBC 0.0 /100WBC 03/23/19 08:15 Total Counted 100 03/23/19 08:15 Neutrophils % (Manual) 86 % (39-76) H 03/23/19 08:15 Band Neutrophils % 6 % (0-10) 03/23/19 08:15 Lymphocytes % (Manual) 8 % (13-43) L 03/23/19 08:15 Plt Morphology Comment Normal (NORMAL) 03/23/19 08:15 RBC Morphology Normal (NORMAL) 03/23/19 08:15 Sample Site Rb 03/23/19 08:31 ABG pH 7.150 (7.35-7.45) L* 03/23/19 08:31 ABG pCO2 11.0 mmHg (35.0-45.0) L* 03/23/19 08:31 ABG pO2 111.0 mmHg (80.0-100.0) H 03/23/19 08:31 ABG HCO3 3.8 mmol/L (22-26) L* 03/23/19 08:31 ABG O2 Saturation 97.0 % (90-100) 03/23/19 08:31 ABG Base Excess -22.6 mmol/L (-2.0-2.0) L 03/23/19 08:31 Geoff Test Na 03/23/19 08:31 A-a Gradient 25.0 mmHg 03/23/19 08:31 FiO2 21.0 03/23/19 08:31 Blood Gas Comments Pt reece well. cdn 03/23/19 08:31 Sodium 134 mmol/L (136-145) L 03/23/19 08:15 Corrected Sodium 150 mmol/L (136-145) H 03/23/19 08:15 Potassium 6.3 mmol/L (3.5-5.1) H* 03/23/19 08:15 Chloride 94 mmol/L (98-107) L 03/23/19 08:15 Carbon Dioxide 7.9 mmol/L (21-32) L* 03/23/19 08:15 BUN 31 mg/dL (7-18) H 03/23/19 08:15 Creatinine 1.89 mg/dL (0.70-1.30) H 03/23/19 08:15 Est GFR (MDRD) Af Amer 52 (>60) L 03/23/19 08:15 Est GFR (MDRD) Non-Af 43 (>60) L 03/23/19 08:15 Glucose 782 mg/dL (65-99) H* 03/23/19 08:15 Lactic Acid 7.6 mmol/L (0.4-2.0) H 03/23/19 08:15 Calcium 10.3 mg/dL (8.5-10.1) H 03/23/19 08:15 Corrected Calcium TNP 03/23/19 08:15 Total Bilirubin 1.00 mg/dL (0.2-1.0) 03/23/19 08:15 AST 11 Units/L (15-37) L 03/23/19 08:15 ALT 13 Units/L (12-78) 03/23/19 08:15 Alkaline Phosphatase 106 Units/L (46-116) 03/23/19 08:15 Total Protein 9.3 g/dL (6.4-8.2) H 03/23/19 08:15 Albumin 3.8 g/dL (3.4-5.0) 03/23/19 08:15 Globulin 5.5 g/dL (2.5-4.5) H 03/23/19 08:15 Albumin/Globulin Ratio 0.7 Ratio (1.1-2.1) L 03/23/19 08:15 Specimen Type Random urine 03/23/19 09:30 Urine Color Yellow (YELLOW) 03/23/19 09:30 Urine Appearance Clear (CLEAR) 03/23/19 09:30 Urine pH 5.0 (5.0 - 8.0) 03/23/19 09:30 Ur Specific [place] 1.020 (1.000-1.030) 03/23/19 09:30 Urine Protein 1+ (NEGATIVE) 03/23/19 09:30 Urine Glucose (UA) 4+ (NEGATIVE) 03/23/19 09:30 Urine Ketones 4+ (NEGATIVE) 03/23/19 09:30 Urine Occult Blood 3+ (NEGATIVE) 03/23/19 09:30 Urine Nitrite Negative (NEGATIVE) 03/23/19 09:30 Urine Bilirubin Negative (NEGATIVE) 03/23/19 09:30 Urine Urobilinogen Normal (NORMAL) 03/23/19 09:30 Ur Leukocyte Esterase Negative (NEGATIVE) 03/23/19 09:30 Urine RBC 0-2 /HPF (0-3) 03/23/19 09:30 Urine WBC None seen /HPF (0-5) 03/23/19 09:30 Ur Squamous Epith Cells Negative /HPF (NEGATIVE) 03/23/19 09:30 Urine Bacteria Negative /HPF (NEGATIVE) 03/23/19 09:30 Urine Mucus Few /HPF (NEGATIVE) 03/23/19 09:30 Ur Culture Indicated? No/not indicated 03/23/19 09:30 Acetone, Semi-Quant Small (NEGATIVE) H 03/23/19 08:15 Opioid Opioid Risk Tool Family Hx of Substance Abuse: Illegal Drugs Personal Hx of Substance Abuse: Illegal Drugs Age (Jait box if 16-45): Yes History of Preadolescent Sexual Abuse: No Psychological Disease: PTSD Total: 2 Total Score Risk Category: Low Risk Copyright: Fady ARTHUR predicting aberrant behaviors Diagnosis Discharge Problem: Acidosis, lactic, Hyperkalemia DKA, type 1 Qualifiers: Diabetes mellitus complication detail: without coma Qualified Code(s): E10.10 - Type 1 diabetes mellitus with ketoacidosis without coma Leukocytosis Qualifiers: Leukocytosis type: unspecified Qualified Code(s): D72.829 - Elevated white blood cell count, unspecified
[2019-03-23] MEDS ORDERED: ZOSYN VIAL 3.375 GRAMS 3.375 G in NS 100 ML IV + SPIKE MINIBAG* 100 ML IV ONE (11:42)
[2019-03-23] MEDS ORDERED: NS 100 ML IV + SPIKE MINIBAG* 100 ML IV ONE ×2 (11:45→21:47)
[2019-03-23] MEDS ORDERED: ZOSYN VIAL 3.375 GRAMS IV ONE (11:45)
[2019-03-23] MEDS ORDERED: METHADONE HCL PO PRN (12:13)
[2019-03-23] MEDS ORDERED: ZOFRAN TAB 4 MG PO PRN (12:13)
[2019-03-23] MEDS ORDERED: NS 1/2 1000 ML IV 1,000 ML IV ONE ×4 (12:17→17:17)
[2019-03-23 12:30] LABS: ABG BASE EXCESS -20.8 mmol/L (-2.0-2.0)
[2019-03-23 12:31] LABS: ABG HCO3 5.7 mmol/L (22-26)
[2019-03-23] MEDS: NS 1/2 1000 ML IV 1,000 ML IV SCH ×2 (12:34→21:08)
[2019-03-23 13:12] LABS: SERUM ACETONE SMALL (NEGATIVE)
[2019-03-23 13:15] LABS: BLOOD UREA NITROGEN 43 mg/dL (7-18); CALCIUM 9.7 mg/dL (8.5-10.1); CHLORIDE 97 mmol/L (98-107); CREATININE 2.38 mg/dL (0.70-1.30); SODIUM 137 mmol/L (136-145); eGFR NON BLACK RACES 33 (>60)
[2019-03-23 13:24] LABS: CREATINE KINASE 25 Units/L (39-308); CREATINE KINASE MB < 1.0 ng/mL (0-4.0); TROPONIN I < 0.02 ng/mL (0-1.5)
[2019-03-23 13:28] LABS: COR NA(FOR HYPERGLY) 157 mmol/L (136-145)
[2019-03-23 13:29] LABS: CARBON DIOXIDE 7.2 mmol/L (21-32)
[2019-03-23] MEDS ORDERED: HumuLIN R ONE ×2 (13:47→21:50)
[2019-03-23] MEDS ORDERED: NS 1000 ML 1,000 ML IV ONE (13:58)
[2019-03-23] MEDS ORDERED: HumuLIN R IV ONE (13:59)
[2019-03-23] MEDS: REMERON PO SCH ×2 (14:57→21:07)
[2019-03-23 16:34] LABS: CALCIUM 8.9 mg/dL (8.5-10.1); CREATININE 2.09 mg/dL (0.70-1.30)
[2019-03-23 16:35] LABS: CARBON DIOXIDE 14.2 mmol/L (21-32)
[2019-03-23 17:37] LABS: BILIRUBIN,URINE NEGATIVE (NEGATIVE); BLOOD/HEMOGLOBIN,URINE 3+ (NEGATIVE); GLUCOSE, URINE 4+ (NEGATIVE); KETONES,URINE 4+ (NEGATIVE); LEUKOCYTE ESTERASE ,URINE NEGATIVE (NEGATIVE); NITRITES,URINE NEGATIVE (NEGATIVE); PROTEIN,URINE 1+ (NEGATIVE); UROBILINOGEN,URINE NORMAL (NORMAL)
[2019-03-23 17:38] LABS: APPEARANCE,URINE CLEAR (CLEAR); COLOR,URINE YELLOW (YELLOW)
[2019-03-23 17:42] LABS: BACTERIA,URINE NEGATIVE /HPF (NEGATIVE); MUCUS,URINE FEW /HPF (NEGATIVE); RBC,URINE 0-2 /HPF (0-3); SQUAMOUS EPITHELIAL CELL,UR NEGATIVE /HPF (NEGATIVE)
[2019-03-23] MEDS ORDERED: HumuLIN R SUBCUT ONE (18:20)
[2019-03-23 18:27] LABS: ABG BASE EXCESS -9.6 mmol/L (-2.0-2.0)
[2019-03-23 18:28] LABS: ABG HCO3 14.4 mmol/L (22-26)
[2019-03-23 18:56] LABS: BASOPHILS % (AUTO) 0.2 % (0.2-1.0); HEMATOCRIT 20.9 % (42.0-54.0); LYMPHOCYTES # (AUTO) 2.6 X10^3/uL (1.3-2.9); LYMPHOCYTES % (AUTO) 15.7 % (21.0-51.0); MEAN CORPUSCULAR HEMOGLOBIN 27.5 pg (27.0-34.0); MEAN CORPUSCULAR HGB CONC 32.3 g/dL (33.0-35.0); MEAN CORPUSCULAR VOLUME 85.1 fL (80.0-100.0); MEAN PLATELET VOLUME 7.8 fL (7.4-11.0); MONOCYTES # (AUTO) 0.1 x10^3/uL (0.3-0.8); MONOCYTES % (AUTO) 0.8 % (0.0-13.0); NEUTROPHILS # (AUTO) 13.7 x10^3/uL (2.2-4.8); NEUTROPHILS % (AUTO) 83.3 % (42.0-75.0); PLATELET COUNT 258 X10^3/uL (150.0-450.0); RED BLOOD COUNT 2.46 X10^6/uL (4.7-6.0); RED CELL DISTRIBUTION WIDTH 14.7 % (11.6-16.5); WHITE BLOOD COUNT 16.5 X10^3/uL (3.6-10.0)
[2019-03-23 19:09] LABS: CALCIUM 8.1 mg/dL (8.5-10.1); CARBON DIOXIDE 18.3 mmol/L (21-32); CREATININE 1.67 mg/dL (0.70-1.30)
[2019-03-23 19:18] LABS: HEMOGLOBIN 6.8 g/dL (13.5-18.0)
[2019-03-23] MEDS ORDERED: SNACK - Diabetic Appropriate PO SCH ×3 (20:00)
[2019-03-23 20:22] LABS: ABG BASE EXCESS -7.7 mmol/L (-2.0-2.0)
[2019-03-23 20:26] LABS: ABG ALLEN TEST P
[2019-03-23] MEDS ORDERED: PROTONIX TAB 40 MG PO SCH (21:00)
[2019-03-23] MEDS ORDERED: LOPRESSOR TAB 25 MG PO SCH (21:00)
[2019-03-23] MEDS ORDERED: ZOSYN VIAL 4.5 GRAMS IV ONE (21:43)
[2019-03-23] MEDS ORDERED: TOBRAMYCIN SULFATE ONE (21:43)
[2019-03-23] MEDS ORDERED: PROTONIX INJ 40 MG VIAL ONE (21:43)
[2019-03-23] MEDS ORDERED: TOBRAMYCIN SULFATE 80 MG in NS 100 ML IV 98 ML IV SCH ×4 (22:00)
[2019-03-23] MEDS: PROTONIX INJ 40 MG VIAL IVP SCH (22:02)
[2019-03-23] MEDS: ZOSYN VIAL 4.5 GRAMS 4.5 G in NS 100 ML IV + SPIKE MINIBAG* 100 ML IV SCH (22:24)
[2019-03-23 23:41] LABS: HEMOGLOBIN 5.9 g/dL (13.5-18.0)
[2019-03-23 23:42] LABS: HEMATOCRIT 18.5 % (42.0-54.0)
[2019-03-24 00:06] LABS: BLOOD UREA NITROGEN 76 mg/dL (7-18); CALCIUM 7.7 mg/dL (8.5-10.1); CARBON DIOXIDE 18.1 mmol/L (21-32); CHLORIDE 107 mmol/L (98-107); COR NA(FOR HYPERGLY) 150 mmol/L (136-145); CREATININE 1.56 mg/dL (0.70-1.30); SODIUM 141 mmol/L (136-145); eGFR NON BLACK RACES 53 (>60)
[2019-03-24] MEDS ORDERED: NS 250 ML IV 250 ML IV ONE (00:26)
[2019-03-24 04:13] LABS: ABG BASE EXCESS -4.3 mmol/L (-2.0-2.0)
[2019-03-24 04:15] LABS: ABG ALLEN TEST P; ABG HCO3 16.8 mmol/L (22-26)
[2019-03-24] MEDS: NS 1/2 1000 ML IV 1,000 ML IV SCH ×5 (04:16→22:19)
[2019-03-24] MEDS: ZOSYN VIAL 4.5 GRAMS 4.5 G in NS 100 ML IV + SPIKE MINIBAG* 100 ML IV SCH ×3 (05:20→21:28)
[2019-03-24 05:56] LABS: SERUM ACETONE NEGATIVE (NEGATIVE)
[2019-03-24 06:01] LABS: BASOPHILS % (AUTO) 0.2 % (0.2-1.0); HEMATOCRIT 30.6 % (42.0-54.0); LYMPHOCYTES # (AUTO) 1.9 X10^3/uL (1.3-2.9); LYMPHOCYTES % (AUTO) 10.5 % (21.0-51.0); MEAN CORPUSCULAR HEMOGLOBIN 28.8 pg (27.0-34.0); MEAN CORPUSCULAR HGB CONC 33.8 g/dL (33.0-35.0); MEAN CORPUSCULAR VOLUME 85.2 fL (80.0-100.0); MEAN PLATELET VOLUME 8.2 fL (7.4-11.0); MONOCYTES # (AUTO) 1.6 x10^3/uL (0.3-0.8); MONOCYTES % (AUTO) 8.7 % (0.0-13.0); NEUTROPHILS # (AUTO) 14.9 x10^3/uL (2.2-4.8); NEUTROPHILS % (AUTO) 80.6 % (42.0-75.0); PLATELET COUNT 185 X10^3/uL (150.0-450.0); RED BLOOD COUNT 3.59 X10^6/uL (4.7-6.0); RED CELL DISTRIBUTION WIDTH 15.4 % (11.6-16.5); WHITE BLOOD COUNT 18.4 X10^3/uL (3.6-10.0)
[2019-03-24 06:05] LABS: ALANINE AMINOTRANSFERASE 14 Units/L (12-78); ALBUMIN 2.4 g/dL (3.4-5.0); ALKALINE PHOSPHATASE 63 Units/L (46-116); ASPARTATE AMINO TRANSFERASE 21 Units/L (15-37); BLOOD UREA NITROGEN 66 mg/dL (7-18); CALCIUM 8.1 mg/dL (8.5-10.1); CARBON DIOXIDE 16.8 mmol/L (21-32); CHLORIDE 113 mmol/L (98-107); COR CA(FOR HYPOALB) 9.4 mg/dL (8.5-10.1); COR NA(FOR HYPERGLY) 150 mmol/L (136-145); CREATININE 1.05 mg/dL (0.70-1.30); SODIUM 145 mmol/L (136-145); eGFR NON BLACK RACES > 60 (>60)
[2019-03-24 06:08] LABS: LACTIC ACID 1.4 mmol/L (0.4-2.0)
[2019-03-24 06:14] LABS: HEMOGLOBIN 10.4 g/dL (13.5-18.0)
[2019-03-24] MEDS ORDERED: NS 1/2 1000 ML IV 1,000 ML IV ONE ×2 (06:30→22:16)
[2019-03-24] MEDS ORDERED: KLOR-CON PO PRN (06:45)
[2019-03-24] MEDS ORDERED: POTASSIUM CHL 40 MEQ/NS 0.45% 500 ML IV PRN (06:45)
[2019-03-24] MEDS ORDERED: POTASSIUM CHLORIDE LIQ 20 MEQ UDC PO PRN (06:45)
[2019-03-24] MEDS ORDERED: K-DUR TAB 20 MEQ PO PRN (06:45)
[2019-03-24] MEDS ORDERED: POTASSIUM CHL 60 MEQ/NS 0.45% 500 ML IV PRN (06:45)
[2019-03-24] MEDS ORDERED: MAGNESIUM SULFATE 1 GRAM/100 mL PREMIX 2 G/200 ML BAG IV ONE (06:53)
[2019-03-24] MEDS: MAGNESIUM SULFATE 1 GRAM/100 mL PREMIX 1 GM/100 ML BAG IV PRN ×2 (06:54→08:34)
[2019-03-24] MEDS ORDERED: TYLENOL SUPP 650 MG ONE (07:00)
[2019-03-24] MEDS: TYLENOL SUPP 650 MG PR PRN ×2 (07:01→13:07)
[2019-03-24] MEDS: PROTONIX INJ 40 MG VIAL IVP SCH ×2 (08:34→20:24)
[2019-03-24 11:17] LABS: ABG BASE EXCESS -5.1 mmol/L (-2.0-2.0); ABG HCO3 17.9 mmol/L (22-26)
[2019-03-24] MEDS: TOBRAMYCIN SULFATE 80 MG in NS 100 ML IV 98 ML IV SCH ×2 (12:30→20:24)
[2019-03-24] MEDS ORDERED: NS 500 ML IV 500 ML IV ONE (12:44)
--- NOTE | 2019-03-24 13:04 | DR.H&P ---
H&P - History & Physical for Day of: H&P Date: 03/23/19 - Chief Complaint Chief Complaint: MOTHER CALLED EMS FOR PT VOMITING, BLACK EMESIS. UPON ARRIVAL PT IS LETHARGIC AND GLUCOSE ELEVATED. PT GLUCOSE HI WITH MONITOR - History of Present Illness History of Present Illness: PT IS 38 EM ER ADMISSION AFTER PRESENTING WITH EMS WITH REPORTS PER PTS MOTHER OF AMS, VOMITING BLACK EMESIS. PT HAS PMH OF UNCONTROLLED TYPE 1 DM. PT MOTHER REPORTED SHE CHECKED HIS BS PRIOR TO EMS ARRIVAL IS WAS 500, SHE ADMINISTERED INSULIN. PT HAD VOMITED ON HIMSELF THAT TIME. PARENT REPORTS HE WAS RECENTLY SENT HOME FROM [place] WITH FUGNAL PORT INFECTION, PORT WAS REMOVED AND HE WAS ON PO MEDICATION FOR INFECTION. PT WBC IN ER 25.5, HGB 11, K 6.3, CO2 ON CMP 7.9, GLUCOSE 782, BUN 31, CREAT 1.89. PT ADMITTED TO ICU FOR TREATMENT OF ACUTE DKA, DEHYDRATION, POSSIBLE UPPER GI BLEED. - Past Medical History Past Medical History: Diabetes Additional Medical History: DKA, Gastroparesis, Chronic Low Back Pain With Radiculopathy, Pancreatitis, UTI's - Past Surgical History Surgical History: Other Additional Surgical History: [place] Teeth Surgically Removed - Family History Family Medical History: Diabetes Mellitus, Sudden Cardiac , Hypertension - Social History Does patient currently use any type of tobacco product: Yes Have you used tobacco products in the last 12 months: Yes Type of Tobacco Use: Cigarettes Does any household member use tobacco: No Alcohol Use: None Drug Use: Prescription Drugs - Medications Home Medications: No Known Drug Allergies Allergy (Verified 11/03/18 01:58) - Review of Systems Constitutional: Weakness, Malaise Eyes: No Symptoms Reported ENT: No Symptoms Reported Respiratory: Shortness of Breath Cardiovascular: No Symptoms Reported Gastrointestinal: Nausea, Vomiting, Other (BLACK EMESIS) Genitourinary: No Symptoms Reported Musculoskeletal: No Symptoms Reported Skin: No Symptoms Reported Neurological: Weakness, Confusion, Other (UNRESPONSIVE) - Physical Exam Vital Signs: Temperature 100.9 F Pulse Rate [Apical] 130 Pulse Rate 155 Respiratory Rate 24 Blood Pressure [Left Arm] 93/57 Blood Pressure 147/101 O2 Sat by Pulse Oximetry 100 Oriented: Unable to test Eyes: Normal Ear: Normal Nose: Normal Throat: Dry Respiratory: RLL Diminished, LLL Diminished Cardiovascular: Tachycardia. negative: Edema : Normal Auscultation: Bowel Sounds: Increased Palpation: Normal Tenderness: Other (NO RESPONSES ON PALPATION OF ABDOMEN) Skin: Decreased [place], Other (DIFFUSE PALLOR) Musculoskeletal: Motor Deficit (DIFFUSE WEAKNESS) Speech Pattern: Aphasic - Assessment/Plan (1) DKA, type 1 Qualifiers: Diabetes mellitus complication detail: without coma Qualified Code(s): E10.10 - Type 1 diabetes mellitus with ketoacidosis without coma Status: Acute Plan: ADMIT, ICU INSULIN DRIP, BS PER PROTOCOL. NPO, SUPPLEMENTAL O2, CONTINOUS CARDIAC MONITORING. IV HYDRATION, OLGUIN CATH, BEDSIDE SUCTION, GASTROCCULT AND HEMOCCULT, ABG ON ADMISSION AND SERIAL ABGS, CXR ON ADMISSION. SERIAL CMP, REPEAT CBC, IV PROTONIX. GI CONSULT FOR EGD (2) Upper GI bleed Status: Acute (3) Hyperkalemia Status: Acute (4) Leukocytosis Qualifiers: Leukocytosis type: unspecified Qualified Code(s): D72.829 - Elevated white blood cell count, unspecified Status: Acute (5) Acute dehydration Status: Acute (6) GERD (gastroesophageal reflux disease) Qualifiers: Esophagitis presence: esophagitis presence not specified Qualified Code(s): K21.9 - Gastro-esophageal reflux disease without esophagitis Status: Chronic - Allergies Allergies/Adverse Reactions: Allergies Allergy/AdvReac Type Severity Reaction Status Date / Time No Known Drug Allergies Allergy Verified 11/03/18 01:58
--- NOTE | 2019-03-24 13:13 | PCM.PROG ---
Progress Note - Progress Note for Day of Date of Exam: 03/24/19 - Subjective Subjective: 38 WM ER ADMISSION WITH DKA, SEPSIS, DEHYDRATION, UPPER GI BLEED. PT WAS ADMITTED TO ICU ON INSULIN DRIP. PT REMAINS ON DRIP THIS AM AT 4U. BS200'S THIS AM. PT CONTINUES WITH LIMITED RESPONSE ON EXAM, PT IS OCCASSIONALLY OPEN HIS EYES, NO VERBAL RESPONES. PT CO2 ON CMP16.8,HE DID RECEIVE BICARB IN ER. BUN 66, CREAT 1.05. PT IS CURRENTLY ON IV ZOSYN AND TOBRAMYCIN, WBC 18.4 TODAY. HGB DROPPED TO 6.8 THEN 5.9. PT IS SP TRANSFUSION PRBC X2 UNITS WITH HGB 10.4 AT 5:30 AM. PT IS NPO FOR EGD THIS AM. PT BP STABLE, CONITNUES TO TACHYPNEA AND TACHYCARDIA. K+ 3.7 TODAY. - Past Medical Family Social History Past Med/Fam/Surg Hx: No changes since H&P Allergies: Allergies No Known Drug Allergies Allergy (Verified 11/03/18 01:58) - Review of Systems ROS: No change since H&P - Vital Signs and I&O's Vital Signs: Temperature 100.9 F Pulse Rate [Apical] 130 Pulse Rate 155 Respiratory Rate 24 Blood Pressure [Left Arm] 93/57 Blood Pressure 147/101 O2 Sat by Pulse Oximetry 100 Intake and Output: Intake & Output 03/22/19 03/23/19 03/24/19 03/25/19 11:59 11:59 11:59 11:59 Intake Total 5557 / 5557 Output Total 2925 / 2925 Balance 2632 / 2632 - Physical Exam Oriented: Unable to test Eyes: Normal Ear: Normal Nose: Normal Throat: Dry Respiratory: Diminished. negative: Wheezes, Rhonchi Cardiovascular: Tachycardia. negative: Edema : Normal Auscultation: Bowel Sounds: Increased Tenderness: Other (NO RESPONSES ON PALPATION OF ABDOMEN) Skin: Decreased Turgur, Other (DIFFUSE PALLOR) Musculoskeletal: Motor Deficit (DIFFUSE WEAKNESS) Speech Pattern: Aphasic - Laboratory and Diagnostics Result Diagrams: 03/24/19 05:27 03/24/19 05:27 Labs: Laboratory WBC 18.4 X10^3/uL (3.6-10.0) H 03/24/19 05:27 RBC 3.59 X10^6/uL (4.7-6.0) L 03/24/19 05:27 Hgb 10.4 g/dL (13.5-18.0) L D 03/24/19 05:27 Hct 30.6 % (42.0-54.0) L 03/24/19 05:27 MCV 85.2 fL (80.0-100.0) 03/24/19 05:27 MCH 28.8 pg (27.0-34.0) 03/24/19 05:27 MCHC 33.8 g/dL (33.0-35.0) 03/24/19 05:27 RDW 15.4 % (11.6-16.5) 03/24/19 05:27 Plt Count 185 X10^3/uL (150.0-450.0) 03/24/19 05:27 Plt Count Comment Adequate (ADEQUATE) 03/23/19 08:15 MPV 8.2 fL (7.4-11.0) 03/24/19 05:27 Neut % (Auto) 80.6 % (42.0-75.0) H 03/24/19 05:27 Lymph % (Auto) 10.5 % (21.0-51.0) L 03/24/19 05:27 [place] % (Auto) 8.7 % (0.0-13.0) 03/24/19 05:27 Eos % (Auto) 0.0 % (0.9-2.9) L 03/24/19 05:27 Baso % (Auto) 0.2 % (0.2-1.0) 03/24/19 05:27 Neut # (Auto) 14.9 x10^3/uL (2.2-4.8) H 03/24/19 05:27 Lymph # (Auto) 1.9 X10^3/uL (1.3-2.9) 03/24/19 05:27 [place] # (Auto) 1.6 x10^3/uL (0.3-0.8) H 03/24/19 05:27 Eos # (Auto) 0.0 x10^3/uL (0.0-0.2) 03/24/19 05:27 Baso # (Auto) 0.0 X10^3/uL (0.0-0.1) 03/24/19 05:27 Absolute Nucleated RBC 0.0 /100WBC 03/24/19 05:27 Total Counted 100 03/23/19 08:15 Neutrophils % (Manual) 86 % (39-76) H 03/23/19 08:15 Band Neutrophils % 6 % (0-10) 03/23/19 08:15 Lymphocytes % (Manual) 8 % (13-43) L 03/23/19 08:15 Plt Morphology Comment Normal (NORMAL) 03/23/19 08:15 RBC Morphology Normal (NORMAL) 03/23/19 08:15 Sample Site Rb 03/24/19 11:09 ABG pH 7.430 (7.35-7.45) 03/24/19 11:09 ABG pCO2 27.0 mmHg (35.0-45.0) L 03/24/19 11:09 ABG pO2 117.0 mmHg (80.0-100.0) H 03/24/19 11:09 ABG HCO3 17.9 mmol/L (22-26) L* 03/24/19 11:09 ABG O2 Saturation 99.0 % (90-100) 03/24/19 11:09 ABG Base Excess -5.1 mmol/L (-2.0-2.0) L 03/24/19 11:09 Geoff Test Na 03/24/19 11:09 A-a Gradient 49.0 mmHg 03/24/19 11:09 FiO2 28.0 03/24/19 11:09 Blood Gas Comments Pt reece well. cdn 03/24/19 11:09 Sodium 145 mmol/L (136-145) 03/24/19 05:27 Corrected Sodium 150 mmol/L (136-145) H 03/24/19 05:27 Potassium 3.7 mmol/L (3.5-5.1) 03/24/19 05:27 Chloride 113 mmol/L (98-107) H 03/24/19 05:27 Carbon Dioxide 16.8 mmol/L (21-32) L 03/24/19 05:27 BUN 66 mg/dL (7-18) H 03/24/19 05:27 Creatinine 1.05 mg/dL (0.70-1.30) 03/24/19 05:27 Est GFR (MDRD) Af Amer > 60 (>60) 03/24/19 05:27 Est GFR (MDRD) Non-Af > 60 (>60) 03/24/19 05:27 Glucose 315 mg/dL (65-99) H 03/24/19 05:27 POC Glucose (mg/dL) 250 mg/dL (65-99) H 03/24/19 12:55 Lactic Acid 1.4 mmol/L (0.4-2.0) 03/24/19 05:27 Calcium 8.1 mg/dL (8.5-10.1) L 03/24/19 05:27 Corrected Calcium 9.4 mg/dL (8.5-10.1) 03/24/19 05:27 Magnesium 1.6 mg/dL (1.7-2.9) L 03/24/19 05:27 Total Bilirubin 0.60 mg/dL (0.2-1.0) 03/24/19 05:27 AST 21 Units/L (15-37) 03/24/19 05:27 ALT 14 Units/L (12-78) 03/24/19 05:27 Alkaline Phosphatase 63 Units/L (46-116) 03/24/19 05:27 Creatine Kinase 25 Units/L (39-308) L 03/23/19 12:50 CK-MB (CK-2) < 1.0 ng/mL (0-4.0) 03/23/19 12:50 CK/CKMB % Calc 4.0 % (<4) 03/23/19 12:50 Troponin I < 0.02 ng/mL (0-1.5) 03/23/19 12:50 Total Protein 6.0 g/dL (6.4-8.2) L 03/24/19 05:27 Albumin 2.4 g/dL (3.4-5.0) L 03/24/19 05:27 Globulin 3.6 g/dL (2.5-4.5) 03/24/19 05:27 Albumin/Globulin Ratio 0.7 Ratio (1.1-2.1) L 03/24/19 05:27 Specimen Type Catherized urine 03/23/19 17:16 Urine Color Yellow (YELLOW) 03/23/19 17:16 Urine Appearance Clear (CLEAR) 03/23/19 17:16 Urine pH 5.0 (5.0 - 8.0) 03/23/19 17:16 Ur Specific [place] 1.015 (1.000-1.030) 03/23/19 17:16 Urine Protein 1+ (NEGATIVE) 03/23/19 17:16 Urine Glucose (UA) 4+ (NEGATIVE) 03/23/19 17:16 Urine Ketones 4+ (NEGATIVE) 03/23/19 17:16 Urine Occult Blood 3+ (NEGATIVE) 03/23/19 17:16 Urine Nitrite Negative (NEGATIVE) 03/23/19 17:16 Urine Bilirubin Negative (NEGATIVE) 03/23/19 17:16 Urine Urobilinogen Normal (NORMAL) 03/23/19 17:16 Ur Leukocyte Esterase Negative (NEGATIVE) 03/23/19 17:16 Urine RBC 0-2 /HPF (0-3) 03/23/19 17:16 Urine WBC 0-2 /HPF (0-5) 03/23/19 17:16 Ur Squamous Epith Cells Negative /HPF (NEGATIVE) 03/23/19 17:16 Urine Bacteria Negative /HPF (NEGATIVE) 03/23/19 17:16 Urine Mucus Few /HPF (NEGATIVE) 03/23/19 17:16 Ur Culture Indicated? No/not indicated 03/23/19 17:16 Acetone, Semi-Quant Negative (NEGATIVE) 03/24/19 05:27 Blood Type A POSITIVE 03/23/19 23:15 Antibody Screen Negative 03/23/19 23:15 Crossmatch See Detail 03/23/19 23:15 - Plan (1) DKA, type 1 Status: Acute Qualifiers: Diabetes mellitus complication detail: without coma Qualified Code(s): E10.10 - Type 1 diabetes mellitus with ketoacidosis without coma Plan: ICU INSULIN DRIP, BS PER PROTOCOL. NPO, SUPPLEMENTAL O2, CONTINOUS CARDIAC MONITORING. IV HYDRATION, OLGUIN CATH, BEDSIDE SUCTION, GASTROCCULT AND HEMOCCULT, ABG ON ADMISSION AND SERIAL ABGS, CXR ON ADMISSION. SERIAL CMP, REPEAT CBC, IV PROTONIX. PLAN FOR EGD PER DR PEREZ, S/P TRANSUFSION PRBC MONITOR H&H. GI CONSULT FOR EGD (2) Upper GI bleed Status: Acute (3) Hyperkalemia Status: Acute (4) Leukocytosis Status: Acute Qualifiers: Leukocytosis type: unspecified Qualified Code(s): D72.829 - Elevated white blood cell count, unspecified (5) Acute dehydration Status: Acute (6) GERD (gastroesophageal reflux disease) Status: Chronic Qualifiers: Esophagitis presence: esophagitis presence not specified Qualified Code(s): K21.9 - Gastro-esophageal reflux disease without esophagitis
--- NOTE | 2019-03-24 13:41 | CT ---
CT HEAD WITHOUT CONTRAST CLINICAL HISTORY: 38-year-old male with shortness of breath. COMPARISON: CT head 10/11/2018. TECHNIQUE: Multiple axial CT images were obtained from the skull base to the cranial vertex without the administration of contrast. Dose reduction techniques including Automated Exposure Control (AEC) and adjustment of mA and kV were utilized. FINDINGS: No evidence of abnormal intra- or extra axial fluid collections, midline shift, or mass effect. [place] white differentiation is maintained. The ventricular system is normal in size and morphology. The basal cisterns are normal in appearance. The imaged paranasal sinuses, mastoid air cells, and tympanic cavities are clear. IMPRESSION: No acute intracranial process. Reported By:
[2019-03-24] MEDS ORDERED: DIFLUCAN 200 MG IV PREMIX* 200 MG/100 ML BAG IV STA (13:46)
[2019-03-24] MEDS ORDERED: DIPRIVAN VIAL 20 ML ONE ×2 (13:58→15:02)
[2019-03-24] MEDS ORDERED: DIPRIVAN VIAL ONE (14:43)
[2019-03-24] MEDS ORDERED: DIPRIVAN PREMIX 1 GRAM IV 1,000 MG/100 ML VIAL ONE (15:36)
[2019-03-24] MEDS: DIPRIVAN PREMIX 1 GRAM IV 1,000 MG/100 ML VIAL IV PRN (15:40)
--- NOTE | 2019-03-24 15:40 | RAD ---
HISTORY: 03/23/2019 Study: Portable chest x-ray one view Comparison: Prior day Findings: The trachea is midline. Cardiomediastinal silhouette is unchanged. Interval intubation with ET tube at the level of the clavicles. Patchy scattered airspace disease, greater within the left lung base. No pneumothorax or pleural effusion. Gaseous distention of the stomach. IMPRESSION: Satisfactory position of ET tube. Increasing bilateral airspace disease, greater within the left lung base. Reported By:
--- NOTE | 2019-03-24 16:26 | RAD ---
HISTORY: NG tube placement Study: Single-view abdomen centered in the left upper quadrant Comparison: None Findings: Nasogastric tube terminating within the stomach is observed. Bowel gas pattern is unremarkable IMPRESSION: Nasogastric tube terminating within the stomach is observed. Reported By:
[2019-03-24 16:40] LABS: ABG ALLEN TEST POS; ABG BASE EXCESS -6.2 mmol/L (-2.0-2.0); ABG HCO3 17.1 mmol/L (22-26)
[2019-03-24] MEDS: LACRI-LUBE S.O.P. AFFEYE SCH ×2 (16:43→20:23)
[2019-03-24] MEDS: K-RIDER 10 MEQ/NS 100 ML 10 MEQ/100 ML BAG IV PRN ×2 (19:14→20:24)
[2019-03-24] MEDS: APRESOLINE INJ 20 MG VIAL IVP PRN (21:55)
[2019-03-25] MEDS ORDERED: LOPRESSOR INJ 5 MG AMP ONE (00:15)
[2019-03-25] MEDS: LOPRESSOR INJ 5 MG AMP IVP SCH ×2 (00:28→06:46)
[2019-03-25] MEDS: XOPENEX 1.25 MG/3 ML NEBULE NEB SCH ×5 (00:55→17:32)
[2019-03-25 04:33] LABS: ABG BASE EXCESS -2.2 mmol/L (-2.0-2.0); ABG HCO3 20.1 mmol/L (22-26)
[2019-03-25] MEDS: DIPRIVAN PREMIX 1 GRAM IV 1,000 MG/100 ML VIAL IV PRN (05:35)
[2019-03-25] MEDS: APRESOLINE INJ 20 MG VIAL IVP PRN (05:35)
[2019-03-25] MEDS: NS 1/2 1000 ML IV 1,000 ML IV SCH ×4 (05:44→21:20)
[2019-03-25] MEDS: ZOSYN VIAL 4.5 GRAMS 4.5 G in NS 100 ML IV + SPIKE MINIBAG* 100 ML IV SCH ×3 (05:44→21:21)
--- NOTE | 2019-03-25 06:23 | RAD ---
HISTORY: Intubation Study: Single view chest Comparison: 03/24/2019 Findings: Endotracheal tube in satisfactory position. NG tube also stable terminating in the stomach. No infiltrate, effusion or pneumothorax identified. There is improved aeration of the lungs. No infiltrate or pneumothorax. The soft tissues are unremarkable. IMPRESSION: 1. Stable support lines with improved aeration of the lungs. Reported By:
[2019-03-25 06:52] LABS: BASOPHILS % (AUTO) 0.1 % (0.2-1.0); EOSINOPHILS % (AUTO) 0.1 % (0.9-2.9); HEMATOCRIT 24.7 % (42.0-54.0); HEMOGLOBIN 8.5 g/dL (13.5-18.0); LYMPHOCYTES # (AUTO) 2.6 X10^3/uL (1.3-2.9); LYMPHOCYTES % (AUTO) 14.5 % (21.0-51.0); MEAN CORPUSCULAR HEMOGLOBIN 28.6 pg (27.0-34.0); MEAN CORPUSCULAR HGB CONC 34.4 g/dL (33.0-35.0); MEAN CORPUSCULAR VOLUME 83.2 fL (80.0-100.0); MEAN PLATELET VOLUME 7.7 fL (7.4-11.0); MONOCYTES # (AUTO) 1.5 x10^3/uL (0.3-0.8); MONOCYTES % (AUTO) 8.4 % (0.0-13.0); NEUTROPHILS % (AUTO) 76.9 % (42.0-75.0); PLATELET COUNT 133 X10^3/uL (150.0-450.0); RED BLOOD COUNT 2.97 X10^6/uL (4.7-6.0); RED CELL DISTRIBUTION WIDTH 15.4 % (11.6-16.5); WHITE BLOOD COUNT 18.2 X10^3/uL (3.6-10.0)
[2019-03-25 06:56] LABS: SERUM ACETONE NEGATIVE (NEGATIVE)
[2019-03-25 07:01] LABS: ALANINE AMINOTRANSFERASE 15 Units/L (12-78); ALBUMIN 2.3 g/dL (3.4-5.0); ALKALINE PHOSPHATASE 58 Units/L (46-116); ASPARTATE AMINO TRANSFERASE 19 Units/L (15-37); BLOOD UREA NITROGEN 18 mg/dL (7-18); CALCIUM 7.7 mg/dL (8.5-10.1); CARBON DIOXIDE 18.9 mmol/L (21-32); CHLORIDE 114 mmol/L (98-107); COR CA(FOR HYPOALB) 9.1 mg/dL (8.5-10.1); COR NA(FOR HYPERGLY) 149 mmol/L (136-145); CREATININE 0.62 mg/dL (0.70-1.30); MAGNESIUM 1.5 mg/dL (1.7-2.9); SODIUM 147 mmol/L (136-145); TOTAL PROTEIN 5.6 g/dL (6.4-8.2); eGFR NON BLACK RACES > 60 (>60)
[2019-03-25] MEDS: DIFLUCAN 200 MG IV PREMIX* 200 MG/100 ML BAG IV SCH (08:31)
[2019-03-25] MEDS: LACRI-LUBE S.O.P. AFFEYE SCH (08:32)
[2019-03-25] MEDS: PROTONIX INJ 40 MG VIAL IVP SCH ×2 (08:32→21:20)
[2019-03-25] MEDS: TOBRAMYCIN SULFATE 80 MG in NS 100 ML IV 98 ML IV SCH ×2 (08:33→21:21)
[2019-03-25] MEDS ORDERED: DIFLUCAN 100 MG IV (MIX by PHARMACY)* 100 MG/50 ML BAG IV SCH (09:00)
[2019-03-25] MEDS ORDERED: NS 1/2 1000 ML IV 1,000 ML IV ONE (09:28)
[2019-03-25] MEDS ORDERED: NS 250 ML IV 250 ML IV ONE (09:29)
[2019-03-25] MEDS: K-RIDER 10 MEQ/NS 100 ML 10 MEQ/100 ML BAG IV PRN ×6 (09:40→16:15)
[2019-03-25 10:08] LABS: ABG ALLEN TEST POS; ABG BASE EXCESS -2.8 mmol/L (-2.0-2.0); ABG HCO3 19.9 mmol/L (22-26)
[2019-03-25] MEDS ORDERED: LEVEMIR SC ONE (10:54)
[2019-03-25] MEDS: LOPRESSOR TAB 25 MG PO SCH ×2 (11:21→21:20)
[2019-03-25] MEDS: HumuLIN R SUBCUT PRN ×3 (14:17→22:31)
[2019-03-25] MEDS: METHADONE HCL PO PRN (17:58)
[2019-03-25] MEDS: MAGNESIUM SULFATE 1 GRAM/100 mL PREMIX 1 GM/100 ML BAG IV PRN ×2 (19:27→20:43)
[2019-03-25] MEDS: SNACK - Diabetic Appropriate PO SCH (20:18)
[2019-03-25] MEDS ORDERED: PHARMACY COMMENT IV NR ×2 (20:30→21:30)
[2019-03-25 20:50] LABS: CREATININE 0.61 mg/dL (0.70-1.30); TOBRAMYCIN,TROUGH 0.2 ug/mL (0-2)
[2019-03-25] MEDS: COLACE CAP 100 MG PO SCH (21:19)
[2019-03-25] MEDS: LEVEMIR SC SCH (21:20)
[2019-03-25] MEDS: MICRO K EXTEN CAP 10 MEQ PO PRN (21:24)
[2019-03-25] MEDS ORDERED: XOPENEX 1.25 MG/3 ML NEBULE NEB PRN (23:18)
[2019-03-26] MEDS: HumuLIN R SUBCUT PRN ×4 (00:22→20:33)
[2019-03-26] MEDS: METHADONE HCL PO PRN ×3 (04:56→21:29)
[2019-03-26] MEDS: XANAX PO PRN ×3 (04:58→21:30)
[2019-03-26] MEDS: ZOSYN VIAL 4.5 GRAMS 4.5 G in NS 100 ML IV + SPIKE MINIBAG* 100 ML IV SCH ×3 (05:00→21:26)
[2019-03-26] MEDS ORDERED: NS 1/2 1000 ML IV 1,000 ML IV ONE (05:43)
[2019-03-26] MEDS: NS 1/2 1000 ML IV 1,000 ML IV SCH ×3 (05:51→20:32)
[2019-03-26 05:53] LABS: ABG BASE EXCESS 0.3 mmol/L (-2.0-2.0); ABG HCO3 22.6 mmol/L (22-26)
[2019-03-26 06:00] LABS: ABG ALLEN TEST POS
[2019-03-26 06:11] LABS: BASOPHILS % (AUTO) 0.2 % (0.2-1.0); EOSINOPHILS # (AUTO) 0.1 x10^3/uL (0.0-0.2); EOSINOPHILS % (AUTO) 1.1 % (0.9-2.9); HEMATOCRIT 24.4 % (42.0-54.0); HEMOGLOBIN 8.4 g/dL (13.5-18.0); LYMPHOCYTES % (AUTO) 17.3 % (21.0-51.0); MEAN CORPUSCULAR HEMOGLOBIN 28.8 pg (27.0-34.0); MEAN CORPUSCULAR HGB CONC 34.3 g/dL (33.0-35.0); MEAN PLATELET VOLUME 7.7 fL (7.4-11.0); MONOCYTES % (AUTO) 8.4 % (0.0-13.0); NEUTROPHILS # (AUTO) 8.6 x10^3/uL (2.2-4.8); PLATELET COUNT 114 X10^3/uL (150.0-450.0); RED CELL DISTRIBUTION WIDTH 15.5 % (11.6-16.5); WHITE BLOOD COUNT 11.8 X10^3/uL (3.6-10.0)
[2019-03-26 06:28] LABS: ALANINE AMINOTRANSFERASE 16 Units/L (12-78); ALBUMIN 2.5 g/dL (3.4-5.0); ALKALINE PHOSPHATASE 64 Units/L (46-116); ASPARTATE AMINO TRANSFERASE 18 Units/L (15-37); BLOOD UREA NITROGEN 6 mg/dL (7-18); CALCIUM 7.6 mg/dL (8.5-10.1); CARBON DIOXIDE 22.7 mmol/L (21-32); CHLORIDE 103 mmol/L (98-107); COR CA(FOR HYPOALB) 8.8 mg/dL (8.5-10.1); COR NA(FOR HYPERGLY) 137 mmol/L (136-145); CREATININE 0.56 mg/dL (0.70-1.30); SODIUM 136 mmol/L (136-145); TOTAL PROTEIN 6.1 g/dL (6.4-8.2); eGFR NON BLACK RACES > 60 (>60)
[2019-03-26] MEDS: MAGNESIUM SULFATE 1 GRAM/100 mL PREMIX 1 GM/100 ML BAG IV PRN ×2 (06:47→09:40)
--- NOTE | 2019-03-26 06:49 | RAD ---
HISTORY: Intubation Study: Single view chest Comparison: 03/25/2019 Findings: Patient has been extubated. Nonspecific interstitial opacities are present. No focal infiltrate or pneumothorax. The cardiac and mediastinal contours are within normal limits. The soft tissues are unremarkable. IMPRESSION: 1. Interval extubation with mild nonspecific interstitial opacities. Reported By:
[2019-03-26] MEDS: LEVEMIR SC SCH ×2 (08:45→20:31)
[2019-03-26] MEDS ORDERED: TOBRAMYCIN SULFATE 80 MG in NS 100 ML IV 98 ML IV SCH (09:00)
[2019-03-26] MEDS ORDERED: NS 250 ML IV 250 ML IV ONE (09:09)
[2019-03-26] MEDS: PROTONIX INJ 40 MG VIAL IVP SCH ×2 (09:38→20:32)
[2019-03-26] MEDS: MICRO K EXTEN CAP 10 MEQ PO PRN (09:39)
[2019-03-26] MEDS: MILK OF MAGNESIA PO SCH (09:39)
[2019-03-26] MEDS: LOPRESSOR TAB 25 MG PO SCH ×2 (09:39→20:32)
[2019-03-26] MEDS: DIFLUCAN 200 MG IV PREMIX* 200 MG/100 ML BAG IV SCH (09:41)
--- NOTE | 2019-03-26 11:48 | PCM.PROG ---
Progress Note - Progress Note for Day of Date of Exam: 03/26/19 - Subjective Subjective: WAS ADMITTED ON 03/23 FOR DKA, SEPSIS, DEHYDRATION, GI BLEED, AND LACTIC ACIDOSIS. HE WAS ANEMIC AND HAS RECEIVIED TWO UNITS OF RED BLOOD CELLS ON 03/24. HE WAS INTUBATED DUE TO WORSENING RESPIRATORY DISTRESS, HOWEVER, HE EXTUBATED HIMSELF YESTERDAY. HE WAS RECENTLY AT [facility] IN [place] AND WAS DIAGNOSED WITH A FUNGAL INFECTION TO HIS PORT A CATH. IT WAS REMOVED. PATIENTS MOTHER REPORTS THAT HE HAS NOT BEEN TAKING HIS ANTI-FUNGAL MEDICATIONS. HE IS CURRENTLY ON AN INSULIN DRIP IN THE INTENSIVE CARE UNIT. HE IS ALERT AND ORIENTED TODAY AND REPORTS FEELING WEEK, OTHERWISE, NO COMPLAINTS. HE IS NOTED WITH DIFFUSE PALLOR AND DIFFUSE UPPER AND LOWER EXTREMITY MUSCLE ATROPHY. BILATERAL LUNGS ARE NOTED WITH SCATTERED RHONCHI. HE CONTINUES TO BE TACHYCARDIC. HIS VITALS THIS MORNING ARE: 98.5-985-53-100%-120/83. LABS WERE OBTAINED. ABNORMAL LAB VALUES INCLUDE THE FOLLOWING: WBC 11.8, RBC 2.90, HGB 8.4, HCT 24.4, PLT COUNT 114, POTASSIUM 2.6, BUN 6, CREATININE 0.56, GLUCOSE 13 6, CALCIUM 7.6, TOTAL PROTEIN 6.1, ALBUMIN 2.5. ABG OBTAINED THIS MORNING REVEALED: PH 7.500, PC02 29.0, P02 119.00, OTHERWISE NORMAL. BLOOD AND SPUTUM CULUTRES ARE PENDING. A CHEST XRAY WAS OBTAINED THIS MORNING AND REVEALED: INTERVAL EXTUBATION WITH MILD NON-SPECIFIC INTERSTITIAL OPACITIES. HE IS CURRENTLY RECEIVING IV TOBRAMYCIN, IV ZOSYN, DIFLUCAN 200MG IV DAILY, IV FLUIDS, POTASSIUM PER PROTOCOL, AND HOME MEDICATIONS WERE RESUMED. TODAY, WE WILL DISCONTINUE THE TOBRAMYCIN. OTHERWISE, WE PLAN TO FOLLOW UP WITH AM LABS AND CONTINUE TO MONITOR. - Past Medical Family Social History Past Med/Fam/Surg Hx: No changes since H&P Allergies: Allergies No Known Drug Allergies Allergy (Verified 11/03/18 01:58) - Review of Systems ROS: No change since H&P - Vital Signs and I&O's Vital Signs: Temperature 98.1 F Pulse Rate [Apical] 130 Pulse Rate 81 Respiratory Rate 12 Blood Pressure [Left Arm] 93/57 Blood Pressure 135/94 O2 Sat by Pulse Oximetry 100 Intake and Output: Intake & Output 03/23/19 03/24/19 03/25/19 03/26/19 11:59 11:59 11:59 11:59 Intake Total 5557 / 5557 2643 / 2643 4781 / 4781 Output Total 2925 / 2925 2600 / 2600 3950 / 3950 Balance 2632 / 2632 43 / 43 831 / 831 - Physical Exam Oriented: Normal Eyes: Normal Ear: Normal Nose: Normal Throat: Dry Respiratory: Diminished, Rhonchi. negative: Wheezes Cardiovascular: Tachycardia. negative: Edema : Normal Auscultation: Bowel Sounds: Increased Palpation: Normal Skin: Decreased Turgur, Other (DIFFUSE PALLOR) Musculoskeletal: Motor Deficit (WEAKNESS ) Psychiatric: Normal Mood Description: Calm Affect: Normal Speech Pattern: Clear, Appropriate - Laboratory and Diagnostics Result Diagrams: 03/26/19 05:20 03/26/19 05:20 Labs: 03/24/19 07:16 Blood Blood Culture - Preliminary 03/24/19 07:00 Blood Blood Culture - Preliminary 03/24/19 15:24 Sputum - Expectorated Sputum Sputum Culture - Final 03/24/19 15:24 Sputum - Expectorated Sputum - Final 03/23/19 08:17 Blood Blood Culture - Preliminary 03/23/19 08:15 Blood Blood Culture - Preliminary Laboratory WBC 11.8 X10^3/uL (3.6-10.0) H 03/26/19 05:20 RBC 2.90 X10^6/uL (4.7-6.0) L 03/26/19 05:20 Hgb 8.4 g/dL (13.5-18.0) L 03/26/19 05:20 Hct 24.4 % (42.0-54.0) L 03/26/19 05:20 MCV 84.0 fL (80.0-100.0) 03/26/19 05:20 MCH 28.8 pg (27.0-34.0) 03/26/19 05:20 MCHC 34.3 g/dL (33.0-35.0) 03/26/19 05:20 RDW 15.5 % (11.6-16.5) 03/26/19 05:20 Plt Count 114 X10^3/uL (150.0-450.0) L 03/26/19 05:20 Plt Count Comment Adequate (ADEQUATE) 03/23/19 08:15 MPV 7.7 fL (7.4-11.0) 03/26/19 05:20 Neut % (Auto) 73.0 % (42.0-75.0) 03/26/19 05:20 Lymph % (Auto) 17.3 % (21.0-51.0) L 03/26/19 05:20 [place] % (Auto) 8.4 % (0.0-13.0) 03/26/19 05:20 Eos % (Auto) 1.1 % (0.9-2.9) 03/26/19 05:20 Baso % (Auto) 0.2 % (0.2-1.0) 03/26/19 05:20 Neut # (Auto) 8.6 x10^3/uL (2.2-4.8) H 03/26/19 05:20 Lymph # (Auto) 2.0 X10^3/uL (1.3-2.9) 03/26/19 05:20 [place] # (Auto) 1.0 x10^3/uL (0.3-0.8) H 03/26/19 05:20 Eos # (Auto) 0.1 x10^3/uL (0.0-0.2) 03/26/19 05:20 Baso # (Auto) 0.0 X10^3/uL (0.0-0.1) 03/26/19 05:20 Absolute Nucleated RBC 0.1 /100WBC 03/26/19 05:20 Total Counted 100 03/23/19 08:15 Neutrophils % (Manual) 86 % (39-76) H 03/23/19 08:15 Band Neutrophils % 6 % (0-10) 03/23/19 08:15 Lymphocytes % (Manual) 8 % (13-43) L 03/23/19 08:15 Plt Morphology Comment Normal (NORMAL) 03/23/19 08:15 RBC Morphology Normal (NORMAL) 03/23/19 08:15 Sample Site Rrad 03/26/19 05:51 ABG pH 7.500 (7.35-7.45) H 03/26/19 05:51 ABG pCO2 29.0 mmHg (35.0-45.0) L 03/26/19 05:51 ABG pO2 119.0 mmHg (80.0-100.0) H 03/26/19 05:51 ABG HCO3 22.6 mmol/L (22-26) 03/26/19 05:51 ABG O2 Saturation 99.0 % (90-100) 03/26/19 05:51 ABG Base Excess 0.3 mmol/L (-2.0-2.0) 03/26/19 05:51 Geoff Test Pos 03/26/19 05:51 A-a Gradient -6.0 mmHg 03/26/19 05:51 FiO2 21.0 03/26/19 05:51 Blood Gas Comments Marva abg well-mtf 03/26/19 05:51 Sodium 136 mmol/L (136-145) 03/26/19 05:20 Corrected Sodium 137 mmol/L (136-145) 03/26/19 05:20 Potassium 2.6 mmol/L (3.5-5.1) L* 03/26/19 05:20 Chloride 103 mmol/L (98-107) 03/26/19 05:20 Carbon Dioxide 22.7 mmol/L (21-32) 03/26/19 05:20 BUN 6 mg/dL (7-18) L 03/26/19 05:20 Creatinine 0.56 mg/dL (0.70-1.30) L 03/26/19 05:20 Est GFR (MDRD) Af Amer > 60 (>60) 03/26/19 05:20 Est GFR (MDRD) Non-Af > 60 (>60) 03/26/19 05:20 Glucose 136 mg/dL (65-99) H 03/26/19 05:20 POC Glucose (mg/dL) 203 mg/dL (65-99) H 03/26/19 11:40 Lactic Acid 1.4 mmol/L (0.4-2.0) 03/24/19 05:27 Calcium 7.6 mg/dL (8.5-10.1) L 03/26/19 05:20 Corrected Calcium 8.8 mg/dL (8.5-10.1) 03/26/19 05:20 Magnesium 1.7 mg/dL (1.7-2.9) 03/26/19 05:20 Total Bilirubin 0.50 mg/dL (0.2-1.0) 03/26/19 05:20 AST 18 Units/L (15-37) 03/26/19 05:20 ALT 16 Units/L (12-78) 03/26/19 05:20 Alkaline Phosphatase 64 Units/L (46-116) 03/26/19 05:20 Creatine Kinase 25 Units/L (39-308) L 03/23/19 12:50 CK-MB (CK-2) < 1.0 ng/mL (0-4.0) 03/23/19 12:50 CK/CKMB % Calc 4.0 % (<4) 03/23/19 12:50 Troponin I < 0.02 ng/mL (0-1.5) 03/23/19 12:50 Total Protein 6.1 g/dL (6.4-8.2) L 03/26/19 05:20 Albumin 2.5 g/dL (3.4-5.0) L 03/26/19 05:20 Globulin 3.6 g/dL (2.5-4.5) 03/26/19 05:20 Albumin/Globulin Ratio 0.7 Ratio (1.1-2.1) L 03/26/19 05:20 Specimen Type Catherized urine 03/23/19 17:16 Urine Color Yellow (YELLOW) 03/23/19 17:16 Urine Appearance Clear (CLEAR) 03/23/19 17:16 Urine pH 5.0 (5.0 - 8.0) 03/23/19 17:16 Ur Specific [place] 1.015 (1.000-1.030) 03/23/19 17:16 Urine Protein 1+ (NEGATIVE) 03/23/19 17:16 Urine Glucose (UA) 4+ (NEGATIVE) 03/23/19 17:16 Urine Ketones 4+ (NEGATIVE) 03/23/19 17:16 Urine Occult Blood 3+ (NEGATIVE) 03/23/19 17:16 Urine Nitrite Negative (NEGATIVE) 03/23/19 17:16 Urine Bilirubin Negative (NEGATIVE) 03/23/19 17:16 Urine Urobilinogen Normal (NORMAL) 03/23/19 17:16 Ur Leukocyte Esterase Negative (NEGATIVE) 03/23/19 17:16 Urine RBC 0-2 /HPF (0-3) 03/23/19 17:16 Urine WBC 0-2 /HPF (0-5) 03/23/19 17:16 Ur Squamous Epith Cells Negative /HPF (NEGATIVE) 03/23/19 17:16 Urine Bacteria Negative /HPF (NEGATIVE) 03/23/19 17:16 Urine Mucus Few /HPF (NEGATIVE) 03/23/19 17:16 Ur Culture Indicated? No/not indicated 03/23/19 17:16 Tobramycin Peak 3.4 ug/mL (4-8) L 03/25/19 22:25 Tobramycin Trough 0.2 ug/mL (0-2) 03/25/19 20:03 Acetone, Semi-Quant Negative (NEGATIVE) 03/25/19 06:29 Blood Type A POSITIVE 03/23/19 23:15 Antibody Screen Negative 03/23/19 23:15 Crossmatch See Detail 03/23/19 23:15 - Plan (1) DKA (diabetic ketoacidoses) Status: Acute Qualifiers: Diabetes mellitus type: type 1 Diabetes mellitus complication detail: without coma Qualified Code(s): E10.10 - Type 1 diabetes mellitus with ketoacidosis without coma Plan: INSULIN DRIP, IV FLUIDS (2) Sepsis Status: Acute Qualifiers: Sepsis type: sepsis due to unspecified organism Sepsis acute organ dysfunction status: with acute organ dysfunction Severe sepsis acute organ dysfunction type: acute renal failure Acute renal failure type: unspecified Severe sepsis shock status: without septic shock Qualified Code(s): A41.9 - Sepsis, unspecified organism; R65.20 - Severe sepsis without septic shock; N17.9 - Acute kidney failure, unspecified Plan: IV ZOSYN, CONTINUE TO MONITOR (3) Fungal infection Status: Acute Plan: DIFLUCAN 200MG IV DAILY, CONTINUE TO MONITOR (4) Upper GI bleed Status: Acute (5) Hypokalemia Status: Acute Plan: REPLACEMENT PER PROTOCOL
[2019-03-26] MEDS: SNACK - Diabetic Appropriate PO SCH (19:30)
[2019-03-26] MEDS: COLACE CAP 100 MG PO SCH (20:31)
[2019-03-27] MEDS: HumuLIN R SUBCUT PRN ×2 (00:24→08:33)
[2019-03-27] MEDS ORDERED: NS 1/2 1000 ML IV 1,000 ML IV ONE (02:01)
[2019-03-27] MEDS: NS 1/2 1000 ML IV 1,000 ML IV SCH (02:05)
[2019-03-27 05:18] LABS: ABG ALLEN TEST P; ABG BASE EXCESS 2.5 mmol/L (-2.0-2.0); ABG HCO3 26.3 mmol/L (22-26)
[2019-03-27] MEDS ORDERED: PHARMACY COMMENT IV NR ×2 (05:30→06:30)
[2019-03-27] MEDS: ZOSYN VIAL 4.5 GRAMS 4.5 G in NS 100 ML IV + SPIKE MINIBAG* 100 ML IV SCH (05:37)
[2019-03-27 06:07] LABS: BASOPHILS % (AUTO) 0.2 % (0.2-1.0); EOSINOPHILS # (AUTO) 0.2 x10^3/uL (0.0-0.2); EOSINOPHILS % (AUTO) 2.3 % (0.9-2.9); HEMATOCRIT 22.5 % (42.0-54.0); HEMOGLOBIN 7.6 g/dL (13.5-18.0); LYMPHOCYTES # (AUTO) 2.4 X10^3/uL (1.3-2.9); LYMPHOCYTES % (AUTO) 30.5 % (21.0-51.0); MEAN CORPUSCULAR VOLUME 85.5 fL (80.0-100.0); MEAN PLATELET VOLUME 8.1 fL (7.4-11.0); MONOCYTES # (AUTO) 0.8 x10^3/uL (0.3-0.8); MONOCYTES % (AUTO) 10.3 % (0.0-13.0); NEUTROPHILS # (AUTO) 4.5 x10^3/uL (2.2-4.8); NEUTROPHILS % (AUTO) 56.7 % (42.0-75.0); PLATELET COUNT 119 X10^3/uL (150.0-450.0); RED BLOOD COUNT 2.63 X10^6/uL (4.7-6.0); RED CELL DISTRIBUTION WIDTH 15.3 % (11.6-16.5)
[2019-03-27 06:12] LABS: ALANINE AMINOTRANSFERASE 13 Units/L (12-78); ALBUMIN 2.3 g/dL (3.4-5.0); ALKALINE PHOSPHATASE 54 Units/L (46-116); ASPARTATE AMINO TRANSFERASE 14 Units/L (15-37); BLOOD UREA NITROGEN 6 mg/dL (7-18); CALCIUM 7.8 mg/dL (8.5-10.1); CARBON DIOXIDE 26.5 mmol/L (21-32); CHLORIDE 104 mmol/L (98-107); COR CA(FOR HYPOALB) 9.2 mg/dL (8.5-10.1); CREATININE 0.57 mg/dL (0.70-1.30); MAGNESIUM 1.5 mg/dL (1.7-2.9); SODIUM 138 mmol/L (136-145); TOTAL PROTEIN 5.6 g/dL (6.4-8.2); eGFR NON BLACK RACES > 60 (>60)
--- NOTE | 2019-03-27 06:20 | RAD ---
HISTORY: Shortness of breath Study: Single view chest Comparison: 03/26/2019 Findings: There is a questionable right upper lobe nodule. No infiltrate, effusion or pneumothorax identified. The cardiac and mediastinal contours are within normal limits. The soft tissues are unremarkable. IMPRESSION: 1. No acute cardiopulmonary abnormality. 2. Questionable right upper lobe pulmonary nodule, possibly due to superimposition of soft tissues. Attention on follow-up radiograph recommended. Reported By:
[2019-03-27 06:45] LABS: HYPOCHROMASIA SLIGHT; PLATELET MORPHOLOGY COMMENT NORMAL (NORMAL)
[2019-03-27] MEDS: MAGNESIUM SULFATE 1 GRAM/100 mL PREMIX 1 GM/100 ML BAG IV PRN ×2 (07:30→08:34)
[2019-03-27] MEDS: XANAX PO PRN (08:25)
[2019-03-27] MEDS: DIFLUCAN 200 MG IV PREMIX* 200 MG/100 ML BAG IV SCH (08:25)
[2019-03-27] MEDS: METHADONE HCL PO PRN (08:26)
[2019-03-27] MEDS: MILK OF MAGNESIA PO SCH (08:27)
[2019-03-27] MEDS: PROTONIX INJ 40 MG VIAL IVP SCH (08:27)
[2019-03-27] MEDS: LOPRESSOR TAB 25 MG PO SCH (08:30)
[2019-03-27] MEDS: LEVEMIR SC SCH (08:32)
[2019-03-27 09:52] VITALS: BP 124/85
== END 2019-03-27 12:00 | disposition home or self-care (01) | DRG 871 ==
LOC: ER 07:51 → ICU 11:34
PROVIDERS: ADMIT Internal Medicine; ATTEND Internal Medicine
DX: A41.9 Sepsis, unspecified organism; K22.10 Ulcer of esophagus without bleeding; R53.1 Weakness; N17.9 Acute kidney failure, unspecified; K29.71 Gastritis, unspecified, with bleeding; R65.20 Severe sepsis without septic shock; R94.31 Abnormal electrocardiogram [ECG] [EKG]; E10.10 Type 1 diabetes mellitus with ketoacidosis without coma; K21.9 Gastro-esophageal reflux disease without esophagitis; E87.6 Hypokalemia; R40.4 Transient alteration of awareness; E86.0 Dehydration; Z79.4 Long term (current) use of insulin; D72.828 Other elevated white blood cell count; K44.9 Diaphragmatic hernia without obstruction or gangrene; R06.02 Shortness of breath; B48.8 Other specified mycoses
CPT/HCPCS: 36415; 36430; 36600; 70450; 71010; 71045; 80048; 80053; 80200; 81001; 82009; 82270; 82550; 82553; 82565; 82803; 82947; 83605; 83735; 84132; 84484; 85014; 85018; 85025; 86850; 86900; 86901; 86922; 87040; 87070; 87205; 93005; 94002; 94003; 94640; 94660; 96365; 96367; 96374; 96375; 99285; A4216; A4222; A4618; A7030; C9113; P9016; S0109; J0360; J0610; J1450; J1815; J2543; J2704; J3260; J3475; J3480; J3490; J7030; J7040; J7050

== ENCOUNTER 2019-08-19 18:25 | Inpatient (IN) ==
[2019-08-19] MEDS ORDERED: NS 1000 ML 1,000 ML ONE ×3 (18:28→21:28)
[2019-08-19] MEDS ORDERED: ZOFRAN INJ 4 MG VIAL ONE (18:30)
[2019-08-19] MEDS ORDERED: NS 1000 ML 1,000 ML IV ONE ×3 (19:03→21:24)
[2019-08-19] MEDS ORDERED: ZOFRAN INJ 4 MG VIAL IVP ONE (19:03)
[2019-08-19 19:20] LABS: BASOPHILS # (AUTO) 0.1 X10^3/uL (0.0-0.1); BASOPHILS % (AUTO) 0.5 % (0.2-1.0); EOSINOPHILS % (AUTO) 0.2 % (0.9-2.9); HEMATOCRIT 46.5 % (42.0-54.0); HEMOGLOBIN 14.8 g/dL (13.5-18.0); LYMPHOCYTES # (AUTO) 4.2 X10^3/uL (1.3-2.9); LYMPHOCYTES % (AUTO) 15.4 % (21.0-51.0); MEAN CORPUSCULAR HEMOGLOBIN 27.6 pg (27.0-34.0); MEAN CORPUSCULAR HGB CONC 31.8 g/dL (33.0-35.0); MEAN CORPUSCULAR VOLUME 86.8 fL (80.0-100.0); MEAN PLATELET VOLUME 8.8 fL (7.4-11.0); MONOCYTES # (AUTO) 1.7 x10^3/uL (0.3-0.8); MONOCYTES % (AUTO) 6.2 % (0.0-13.0); NEUTROPHILS # (AUTO) 21.2 x10^3/uL (2.2-4.8); NEUTROPHILS % (AUTO) 77.7 % (42.0-75.0); PLATELET COUNT 293 X10^3/uL (150.0-450.0); RED BLOOD COUNT 5.36 X10^6/uL (4.7-6.0); RED CELL DISTRIBUTION WIDTH 20.2 % (11.6-16.5); WHITE BLOOD COUNT 27.3 X10^3/uL (3.6-10.0)
[2019-08-19 19:38] LABS: ALANINE AMINOTRANSFERASE 34 Units/L (12-78); ALBUMIN 4.2 g/dL (3.4-5.0); ALKALINE PHOSPHATASE 81 Units/L (46-116); AMYLASE 302 Units/L (25-115); ASPARTATE AMINO TRANSFERASE 25 Units/L (15-37); BLOOD UREA NITROGEN 27 mg/dL (7-18); CALCIUM 10.6 mg/dL (8.5-10.1); CHLORIDE 94 mmol/L (98-107); CKMB % 1.7 % (<4); CREATINE KINASE 85 Units/L (39-308); CREATINE KINASE MB 1.4 ng/mL (0-4.0); CREATININE 2.25 mg/dL (0.70-1.30); LIPASE 52 Units/L (73-393); MAGNESIUM 1.9 mg/dL (1.7-2.9); PHOSPHORUS 7.8 mg/dL (2.6-4.7); SODIUM 136 mmol/L (136-145); TOTAL PROTEIN 9.1 g/dL (6.4-8.2); TROPONIN I 0.02 ng/mL (0-1.5); eGFR NON BLACK RACES 35 (>60)
[2019-08-19 19:43] LABS: CARBON DIOXIDE 8.2 mmol/L (21-32)
[2019-08-19 19:44] LABS: COR NA(FOR HYPERGLY) 150 mmol/L (136-145)
[2019-08-19 19:45] LABS: ABG BASE EXCESS -18.2 mmol/L (-2.0-2.0)
--- NOTE | 2019-08-19 19:45 | RAD ---
HISTORYSEPSISSTUDYCHEST, 1 [id number] heart is normal. The pulmonary vessels are normal. There is overlying EKG lead and metallic artifact. The lungs are mildly hyperinflated. No consolidation or effusion is seen.IMPRESSIONOverlying artifact limiting the exam otherwise, stable with no acute abnormality seen.Electronically signed by: WU ROGERS (Aug 19, 2019 19:43:42)
[2019-08-19 19:47] LABS: ABG HCO3 6.9 mmol/L (22-26)
[2019-08-19 19:48] LABS: BAND NEUTROPHILS % 10 % (0-10)
[2019-08-19 19:49] LABS: ANISOCYTOSIS 1+; PLATELET MORPHOLOGY COMMENT NORMAL (NORMAL)
--- NOTE | 2019-08-19 19:57 | DR.HYPOGLY ---
HPI Time Seen Time Seen by Provider: 08/19/19 19:54 PCP Primary Care Physician: DR. NEWMAN Complaint Chief Complaint:: PT TO ER WITH C/O N/V > BLOOD SUGAR ,BR COVID-19 Coronavirus risk:travel/contact w/high risk person: No Has patient experienced Coronavirus symptoms: No Source History Provided: Patient and EMS Mode of Arrival Mode of Arrival: Stretcher Timing Onset of Chief Complaint: 08/19/19 Came on: Suddenly Duration Duration: Constant Duration: Days Context [place]: denies Shaky (SLEEPY.) Symptoms: Anxious and Sweaty History of: Diabetes, Insulin use, Hypoglycemic episodes and Hyperglycemic episodes Associated signs and symptoms Associated signs and symptoms: Headache, Abdominal pain, Nausea and Vomiting Other History Other history: HISTORY PREVIOUS DKA, DM AND SEPSIS. PMH PMH Past Medical History: Yes Past Medical History: Diabetes Past Surgical History: Yes Surgical History: Other Family History History of Family Medical Conditions: Yes Family Medical History: Diabetes Mellitus, Sudden Cardiac and Hypertension Social History Does patient currently use any type of tobacco product: No Have you used tobacco products in the last 12 months: No Type of Tobacco Use: None Does any household member use tobacco: No Alcohol Use: None Do you use any recreational Drugs:: No Lives With: Family Lives Where: Home Travel Risk Coronavirus risk:travel/contact w/high risk person: No Has patient experienced Coronavirus symptoms: No Infectious screening In the last 2 months have you had wt loss of >10#?: NO Have you had fever, night sweats or hemotysis?: No Have you traveled outside the country in the last 6 months?: No Isolation: Standard ROS Review of Systems Constitutional: See HPI, Malaise, Weakness and Fatigue; negative Fever Eyes: No Symptoms Reported and See HPI; negative Blurred Vision and Diplopia ENTM: No Symptoms Reported and See HPI; negative Ear Pain, Nose Discharge, Nose Congestion and Throat Pain Respiratoy: See HPI, Non-Productive Cough and Short of Breath; negative Wheezing Cardiovascular: See HPI and Palpitations; negative Chest Pain and Edema Gastrointestinal/Abdominal: See HPI, Abdominal Pain, Nausea and Vomiting; negative Diarrhea Genitourinary: See HPI and Other (DECREASE URINE OUTPUT.); negative Dysuria Neurological: See HPI, Anxiety, Headache and Weakness Musculoskeletal: See HPI, Back Pain and Muscle Pain Integumentary: See HPI and Dryness; negative Change in Color, Rash and Juandice Hematologic/Lymphatic: No Symptoms Reported, See HPI and Easy Bruising; negative Swollen Glands Endocrine: See HPI, Increased Thirst, Increased Urine and Decreased Appetite Psychiatric: See HPI and Anxiety All Other Systems: Reviewed and Negative PE Vital Signs Vitals: Pulse Rate 155 Respiratory Rate 30 Blood Pressure [Left Arm] 132/84 Blood Pressure 152/97 O2 Sat by Pulse Oximetry 97 General Limitations: No Limitations General Appearance: Alert and In No Apparent Distress Eyes Eye exam: Normal Appearance and PERRL; negative Scleral Icterus and Conjunctival Injection Pupils: Regular, Round: Bilateral and Reactive: Bilateral Sclera/Conjunctival: Normal Inspection: Bilateral ENT ENT Exam: Normal Exam, Normal Oropharynx, Normal External Ear Exam and TM's Normal Bilaterally Nose Exam: Normal Nose Exam; negative Sinus Tenderness, Nasal Deviation and Septal Hematoma Mouth Exam: Normal Inspection; negative Lip Swelling and Tongue Swelling Throat Exam: Normal Inspection and Tonsillar Erythema; negative Tonsillomegaly and Tonsillar Exudate Neck Neck Exam: Normal Inspection and Trachea Midline; negative Tenderness and Lymphadenopathy Chest Chest Inspection: Normal Inspection and Symmetric Chest Wall Rise; negative Tenderness Respiratory Respiratory Exam: Respiratory Distress; negative Accessory Muscle Use and Chest Wall Tenderness Respiratory Exam: Bilateral: Rhonchi and Lower: Rhonchi Cardiovascular Cardiovascular Exam: Normal Rhythm, Tachycardia and Normal Heart Sounds; negative Systolic Murmur and Diastolic Murmur Abdominal Exam Abdominal Exam: Normal Inspection, Normal Bowel Sounds and Soft; negative Tenderness Extremities Extremities Exam: Normal Inspection and Normal Capillary Refill; negative Te nderness, Edema and Calf Tenderness Back Back Exam: Normal Inspection; negative (R) CVA Tenderness, (L) CVA Tenderness and Paraspinal Tenderness Neurologic Neurological Exam: Alert, Oriented X3 and CN II-XII Intact (SLEEPY); negative Motor Sensory Deficit Patient Oriented To: Person, Place and Time Cranial Nerve Exam: EOM Function (II, III, IV, ): Normal, Facial Sensation (V): Normal, Facial Palsy (VII): Normal, Gag reflex (XI): Normal and Tongue Deviation: Normal Motor Strength - LUE: 5/5 Motor Strength - RUE: 5/5 Motor Strength - LLE: 5/5 Motor Strength - RLE: 5/5 Upper Motor Neuron Exam: Babinski Sign: Normal Psychiatric Psychiatric Exam: Normal Affect and Anxious Skin Skin Exam: Dry MDM Differential diagnosis Differential diagnosis: Sepsis (DKA. DEHYDRATION, PNEUMONIA, [place], ABDOMINAL PAIN.) COURSE Treatment Treatment: SEE ORDERS. NS 1L IV BOLUS. REPEAT. INSULIN DRIP PER PROTOCOL. ZOSYN 3.375GM IVPB. Consultation Consultation Comments: DISCUSSED PATIENT WITH DR. MIKE. HE WILL ADMIT PATIENT. Education/Counseling Education/Counseling: Patient Educated On: Diagnosis ROR Labs Reviewed Laboratory Results Reviewed?: Yes Result Diagrams: 08/19/19 18:40 08/20/19 01:00 Laboratory: WBC 27.3 X10^3/uL (3.6-10.0) H 08/19/19 18:40 RBC 5.36 X10^6/uL (4.7-6.0) 08/19/19 18:40 Hgb 14.8 g/dL (13.5-18.0) 08/19/19 18:40 Hct 46.5 % (42.0-54.0) 08/19/19 18:40 MCV 86.8 fL (80.0-100.0) 08/19/19 18:40 MCH 27.6 pg (27.0-34.0) 08/19/19 18:40 MCHC 31.8 g/dL (33.0-35.0) L 08/19/19 18:40 RDW 20.2 % (11.6-16.5) H 08/19/19 18:40 Plt Count 293 X10^3/uL (150.0-450.0) 08/19/19 18:40 Plt Count Comment Adequate (ADEQUATE) 08/19/19 18:40 MPV 8.8 fL (7.4-11.0) 08/19/19 18:40 Neut % (Auto) 77.7 % (42.0-75.0) H 08/19/19 18:40 Lymph % (Auto) 15.4 % (21.0-51.0) L 08/19/19 18:40 [place] % (Auto) 6.2 % (0.0-13.0) 08/19/19 18:40 Eos % (Auto) 0.2 % (0.9-2.9) L 08/19/19 18:40 Baso % (Auto) 0.5 % (0.2-1.0) 08/19/19 18:40 Neut # (Auto) 21.2 x10^3/uL (2.2-4.8) H 08/19/19 18:40 Lymph # (Auto) 4.2 X10^3/uL (1.3-2.9) H 08/19/19 18:40 [place] # (Auto) 1.7 x10^3/uL (0.3-0.8) H 08/19/19 18:40 Eos # (Auto) 0.0 x10^3/uL (0.0-0.2) 08/19/19 18:40 Baso # (Auto) 0.1 X10^3/uL (0.0-0.1) 08/19/19 18:40 Absolute Nucleated RBC 0.0 /100WBC 08/19/19 18:40 Total Counted 100 08/19/19 18:40 Neutrophils % (Manual) 79 % (39-76) H 08/19/19 18:40 Band Neutrophils % 10 % (0-10) 08/19/19 18:40 Lymphocytes % (Manual) 8 % (13-43) L 08/19/19 18:40 Monocytes % (Manual) 3 % (4-9) L 08/19/19 18:40 Plt Morphology Comment Normal (NORMAL) 08/19/19 18:40 RBC Morphology Abnormal (NORMAL) 08/19/19 18:40 Anisocytosis 1+ A 08/19/19 18:40 PT 14.3 SECONDS (11.8-14.3) 08/19/19 18:40 INR Target Range - 08/19/19 18:40 INR 1.14 (0.8-1.3) 08/19/19 18:40 APTT 25.3 SECONDS (22.9-36.5) 08/19/19 18:40 PTT Comment - 08/19/19 18:40 Sample Site Lbra 08/19/19 19:40 ABG pH 7.240 (7.35-7.45) L 08/19/19 19:40 ABG pCO2 16.0 mmHg (35.0-45.0) L* 08/19/19 19:40 ABG pO2 108.0 mmHg (80.0-100.0) H 08/19/19 19:40 ABG HCO3 6.9 mmol/L (22-26) L* 08/19/19 19:40 ABG O2 Saturation 97.0 % (90-100) 08/19/19 19:40 ABG Base Excess -18.2 mmol/L (-2.0-2.0) L 08/19/19 19:40 Geoff Test Na 08/19/19 19:40 A-a Gradient 22.0 mmHg 08/19/19 19:40 FiO2 21.0 08/19/19 19:40 Blood Gas Comments Marva abg well-mtf 08/19/19 19:40 Sodium 136 mmol/L (136-145) 08/19/19 18:40 Corrected Sodium 150 mmol/L (136-145) H 08/19/19 18:40 Potassium 5.3 mmol/L (3.5-5.1) H 08/19/19 18:40 Chloride 94 mmol/L (98-107) L 08/19/19 18:40 Carbon Dioxide 8.2 mmol/L (21-32) L* 08/19/19 18:40 BUN 27 mg/dL (7-18) H 08/19/19 18:40 Creatinine 2.25 mg/dL (0.70-1.30) H 08/19/19 18:40 Est GFR (MDRD) Af Amer 42 (>60) L 08/19/19 18:40 Est GFR (MDRD) Non-Af 35 (>60) L 08/19/19 18:40 Glucose 676 mg/dL (65-99) H* 08/19/19 18:40 Hemoglobin A1c 10.1 % 08/19/19 19:10 Lactic Acid 7.8 mmol/L (0.4-2.0) H 08/19/19 19:30 Calcium 10.6 mg/dL (8.5-10.1) H 08/19/19 18:40 Corrected Calcium TNP 08/19/19 18:40 Phosphorus 7.8 mg/dL (2.6-4.7) H 08/19/19 18:40 Magnesium 1.9 mg/dL (1.7-2.9) 08/19/19 18:40 Total Bilirubin 0.90 mg/dL (0.2-1.0) 08/19/19 18:40 AST 25 Units/L (15-37) 08/19/19 18:40 ALT 34 Units/L (12-78) 08/19/19 18:40 Alkaline Phosphatase 81 Units/L (46-116) 08/19/19 18:40 Creatine Kinase 85 Units/L (39-308) 08/19/19 18:40 CK-MB (CK-2) 1.4 ng/mL (0-4.0) 08/19/19 18:40 CK/CKMB % Calc 1.7 % (<4) 08/19/19 18:40 Troponin I 0.02 ng/mL (0-1.5) 08/19/19 18:40 Total Protein 9.1 g/dL (6.4-8.2) H 08/19/19 18:40 Albumin 4.2 g/dL (3.4-5.0) 08/19/19 18:40 Globulin 4.9 g/dL (2.5-4.5) H 08/19/19 18:40 Albumin/Globulin Ratio 0.9 Ratio (1.1-2.1) L 08/19/19 18:40 Amylase 302 Units/L (25-115) H 08/19/19 18:40 Lipase 52 Units/L (73-393) L 08/19/19 18:40 Cortisol Cancelled 08/19/19 18:40 Acetone, Semi-Quant Small (NEGATIVE) H 08/19/19 18:40 XRAY XRAY Interpreted by: Radiologist (REPORTS NOTED AND DISCUSSED WITH PATIENT.) EKG Rate: 156 Center: Normal Rhythm: ST, PACs and PVCs Block: None Hypertrophy: None ST: Nonsp Opioid Opioid Risk Tool Family Hx of Substance Abuse: Illegal Drugs Personal Hx of Substance Abuse: Illegal Drugs Age (Ajit box if 16-45): Yes History of Preadolescent Sexual Abuse: No Psychological Disease: PTSD Total: 2 Total Score Risk Category: Low Risk Copyright: [facility] predicting aberrant behaviors Diagnosis Discharge Problem: DKA (diabetic ketoacidoses) Qualifiers: Diabetes mellitus type: type 1 Diabetes mellitus complication detail: without coma Qualified Code(s): E10.10 - Type 1 diabetes mellitus with ketoacidosis without coma Leukocytosis Qualifiers: Leukocytosis type: bandemia Qualified Code(s): D72.825 - Bandemia Sepsis Qualifiers: Sepsis type: sepsis due to unspecified organism Sepsis acute organ dysfunction status: unspecified Qualified Code(s): A41.9 - Sepsis, unspecified organism Constipation Qualifiers: Constipation type: slow transit constipation Qualified Code(s): K59.01 - Slow transit constipation
[2019-08-19] MEDS ORDERED: ZOSYN VIAL 3.375 GRAMS 3.375 G in NS 100 ML IV + SPIKE MINIBAG* 100 ML IV ONE (21:40)
[2019-08-19] MEDS ORDERED: MYXREDLIN 100 UNIT/100 ML BAG 100 UNIT/100 ML PLAST..BAG IV ONE (21:57)
--- NOTE | 2019-08-19 21:57 | RAD ---
HISTORY:Abdominal pain, nausea and vomitingStudy: KUBComparison:NoneFindings:Single supine view submitted. There is a large volume of retained stool in the distal colon and rectum suggesting constipation. No dilated intestinal loops are seen. No abnormal soft tissue calcifications are identified. Bony structures are intact.IMPRESSION:1. Large volume of retained stool in the distal colon and rectum suggesting constipation.Electronically signed by: CHRISTOPHER SMITH (Aug 19, 2019 21:55:54)
[2019-08-19] MEDS ORDERED: ZOSYN VIAL 3.375 GRAMS IV ONE (22:06)
[2019-08-19] MEDS ORDERED: NS 100 ML IV 100 ML IV ONE ×2 (22:06→23:35)
[2019-08-19] MEDS ORDERED: SODIUM BICARBONATE 8.4% INJ ADULT IVP PRN (23:07)
[2019-08-19] MEDS ORDERED: FORTAZ or TAZICEF VIAL INJ 1 G in NS 100 ML IV + SPIKE MINIBAG* 100 ML IV SCH (23:07)
[2019-08-19] MEDS ORDERED: MAGNESIUM SULFATE 1 GRAM/100 mL PREMIX 1 GM/100 ML BAG IV PRN (23:07)
[2019-08-19] MEDS ORDERED: NS + KCL 40 MEQ/L 1,000 ML IV PRN (23:07)
[2019-08-19] MEDS ORDERED: MAGNESIUM SULFATE 1 GRAM/100 mL PREMIX 2 GM/200 ML BAG IV PRN (23:07)
[2019-08-19] MEDS ORDERED: D50W ABBOJECT SYR IV PRN (23:07)
[2019-08-19] MEDS ORDERED: NS 1000 ML 1,000 ML IV PRN (23:07)
[2019-08-19] MEDS ORDERED: FORTAZ or TAZICEF VIAL INJ ONE (23:35)
[2019-08-20] MEDS ORDERED: NS 1000 ML 1,000 ML IV SCH (00:05)
[2019-08-20 00:56] LABS: BILIRUBIN,URINE NEGATIVE (NEGATIVE); BLOOD/HEMOGLOBIN,URINE 1+ (NEGATIVE); GLUCOSE, URINE 4+ (NEGATIVE); KETONES,URINE 4+ (NEGATIVE); LEUKOCYTE ESTERASE ,URINE NEGATIVE (NEGATIVE); NITRITES,URINE NEGATIVE (NEGATIVE); PROTEIN,URINE 2+ (NEGATIVE); UROBILINOGEN,URINE NORMAL (NORMAL)
[2019-08-20 01:03] LABS: APPEARANCE,URINE CLEAR (CLEAR); BACTERIA,URINE NEGATIVE /HPF (NEGATIVE); COLOR,URINE PALE YELLOW (YELLOW); RBC,URINE NONE SEEN /HPF (0-3); SQUAMOUS EPITHELIAL CELL,UR RARE /HPF (NEGATIVE)
[2019-08-20 01:29] LABS: CALCIUM 9.7 mg/dL (8.5-10.1); CARBON DIOXIDE 18.6 mmol/L (21-32); CREATININE 1.78 mg/dL (0.70-1.30)
[2019-08-20] MEDS: D5 1/2 NS + KCL 20 MEQ/L 1,000 ML IV PRN ×2 (02:00→09:57)
[2019-08-20] MEDS: HumuLIN R IV PRN ×5 (02:15→06:12)
[2019-08-20] MEDS ORDERED: MILK OF MAGNESIA PO PRN (02:41)
[2019-08-20] MEDS ORDERED: COLACE CAP 100 MG PO PRN (02:41)
[2019-08-20] MEDS: NS 1000 ML 1,000 ML IV SCH ×2 (04:16→12:13)
[2019-08-20] MEDS ORDERED: NS 100 ML IV 100 ML IV ONE ×3 (05:27→19:37)
[2019-08-20] MEDS ORDERED: ZOSYN VIAL 3.375 GRAMS IV ONE ×3 (05:27→19:37)
[2019-08-20 05:50] LABS: BASOPHILS % (AUTO) 0.3 % (0.2-1.0); EOSINOPHILS % (AUTO) 0.1 % (0.9-2.9); HEMATOCRIT 39.1 % (42.0-54.0); HEMOGLOBIN 13.1 g/dL (13.5-18.0); LYMPHOCYTES # (AUTO) 3.2 X10^3/uL (1.3-2.9); LYMPHOCYTES % (AUTO) 19.4 % (21.0-51.0); MEAN CORPUSCULAR HGB CONC 33.6 g/dL (33.0-35.0); MEAN CORPUSCULAR VOLUME 83.5 fL (80.0-100.0); MEAN PLATELET VOLUME 8.5 fL (7.4-11.0); MONOCYTES # (AUTO) 1.8 x10^3/uL (0.3-0.8); NEUTROPHILS # (AUTO) 11.5 x10^3/uL (2.2-4.8); NEUTROPHILS % (AUTO) 69.2 % (42.0-75.0); PLATELET COUNT 210 X10^3/uL (150.0-450.0); RED BLOOD COUNT 4.68 X10^6/uL (4.7-6.0); RED CELL DISTRIBUTION WIDTH 20.4 % (11.6-16.5)
[2019-08-20 06:05] LABS: ALANINE AMINOTRANSFERASE 24 Units/L (12-78); ALBUMIN 3.2 g/dL (3.4-5.0); ALKALINE PHOSPHATASE 52 Units/L (46-116); ASPARTATE AMINO TRANSFERASE 19 Units/L (15-37); BLOOD UREA NITROGEN 22 mg/dL (7-18); CALCIUM 8.9 mg/dL (8.5-10.1); CHLORIDE 112 mmol/L (98-107); COR CA(FOR HYPOALB) 9.5 mg/dL (8.5-10.1); COR NA(FOR HYPERGLY) 150 mmol/L (136-145); CREATININE 1.35 mg/dL (0.70-1.30); LIPASE 52 Units/L (73-393); MAGNESIUM 1.5 mg/dL (1.7-2.9); PHOSPHORUS 1.4 mg/dL (2.6-4.7); SODIUM 147 mmol/L (136-145); TOTAL PROTEIN 7.1 g/dL (6.4-8.2); eGFR NON BLACK RACES > 60 (>60)
[2019-08-20] MEDS: ZOSYN VIAL 3.375 GRAMS 3.375 G in NS 100 ML IV + SPIKE MINIBAG* 100 ML IV SCH ×3 (06:10→21:01)
[2019-08-20 06:17] LABS: WHITE BLOOD COUNT 16.6 X10^3/uL (3.6-10.0)
[2019-08-20 06:18] LABS: ANISOCYTOSIS 1+; PLATELET MORPHOLOGY COMMENT NORMAL (NORMAL)
[2019-08-20 06:21] LABS: AMYLASE 701 Units/L (25-115)
[2019-08-20 11:31] VITALS: BMI 19.7
[2019-08-20] MEDS ORDERED: HumuLIN 70/30 (NovoLIN 70/30) SC ONE (13:22)
[2019-08-20] MEDS: LR 1000 ML IV 1,000 ML IV SCH ×2 (14:10→21:05)
[2019-08-20] MEDS ORDERED: NS 250 ML IV 250 ML IV ONE (14:22)
[2019-08-20] MEDS ORDERED: HumuLIN 70/30 (NovoLIN 70/30) SC SCH (15:00)
[2019-08-20] MEDS ORDERED: HumuLIN R SUBCUT PRN (17:13)
[2019-08-20] MEDS: HumuLIN R SUBCUT PRN ×2 (17:24→18:07)
[2019-08-20] MEDS ORDERED: SNACK - Diabetic Appropriate PO SCH (20:00)
[2019-08-20] MEDS: LANTUS SC SCH (21:00)
[2019-08-20] MEDS: SNACK - Diabetic Appropriate PO SCH (21:03)
[2019-08-21] MEDS: HumuLIN R SUBCUT PRN ×3 (04:12→17:00)
[2019-08-21] MEDS: LR 1000 ML IV 1,000 ML IV SCH ×7 (04:37→23:38)
[2019-08-21] MEDS ORDERED: NS 100 ML IV 100 ML IV ONE (05:20)
[2019-08-21] MEDS ORDERED: ZOSYN VIAL 3.375 GRAMS IV ONE (05:20)
[2019-08-21] MEDS: ZOSYN VIAL 3.375 GRAMS 3.375 G in NS 100 ML IV + SPIKE MINIBAG* 100 ML IV SCH ×3 (05:41→21:12)
[2019-08-21 06:55] LABS: BASOPHILS % (AUTO) 0.2 % (0.2-1.0); EOSINOPHILS % (AUTO) 0.2 % (0.9-2.9); HEMATOCRIT 32.5 % (42.0-54.0); HEMOGLOBIN 11.1 g/dL (13.5-18.0); LYMPHOCYTES # (AUTO) 2.3 X10^3/uL (1.3-2.9); LYMPHOCYTES % (AUTO) 17.7 % (21.0-51.0); MEAN CORPUSCULAR HEMOGLOBIN 27.6 pg (27.0-34.0); MEAN CORPUSCULAR HGB CONC 34.1 g/dL (33.0-35.0); MEAN CORPUSCULAR VOLUME 80.9 fL (80.0-100.0); MEAN PLATELET VOLUME 8.1 fL (7.4-11.0); NEUTROPHILS # (AUTO) 9.7 x10^3/uL (2.2-4.8); NEUTROPHILS % (AUTO) 73.9 % (42.0-75.0); PLATELET COUNT 149 X10^3/uL (150.0-450.0); RED BLOOD COUNT 4.02 X10^6/uL (4.7-6.0); RED CELL DISTRIBUTION WIDTH 20.4 % (11.6-16.5); WHITE BLOOD COUNT 13.1 X10^3/uL (3.6-10.0)
[2019-08-21 06:59] LABS: ALANINE AMINOTRANSFERASE 22 Units/L (12-78); ALBUMIN 2.9 g/dL (3.4-5.0); ALKALINE PHOSPHATASE 43 Units/L (46-116); AMYLASE 320 Units/L (25-115); ASPARTATE AMINO TRANSFERASE 27 Units/L (15-37); BLOOD UREA NITROGEN 6 mg/dL (7-18); CALCIUM 8.3 mg/dL (8.5-10.1); CARBON DIOXIDE 26.4 mmol/L (21-32); CHLORIDE 101 mmol/L (98-107); COR CA(FOR HYPOALB) 9.2 mg/dL (8.5-10.1); COR NA(FOR HYPERGLY) 139 mmol/L (136-145); CREATININE 0.79 mg/dL (0.70-1.30); LIPASE 93 Units/L (73-393); MAGNESIUM 1.5 mg/dL (1.7-2.9); PHOSPHORUS 1.5 mg/dL (2.6-4.7); SODIUM 136 mmol/L (136-145); TOTAL PROTEIN 6.3 g/dL (6.4-8.2); eGFR NON BLACK RACES > 60 (>60)
[2019-08-21 07:20] LABS: ANISOCYTOSIS SLIGHT; PLATELET MORPHOLOGY COMMENT NORMAL (NORMAL)
[2019-08-21] MEDS: LINZESS PO SCH (08:46)
[2019-08-21] MEDS ORDERED: MAGNESIUM SULFATE 1 GRAM/100 mL PREMIX 4 G/400 ML BAG IV ONE (09:22)
[2019-08-21] MEDS: K-DUR TAB 20 MEQ PO SCH ×2 (09:45→21:10)
[2019-08-21] MEDS: LOPRESSOR TAB 25 MG PO SCH (09:45)
[2019-08-21] MEDS: ROXICODONE TAB 5 MG PO SCH ×3 (09:46→21:10)
[2019-08-21] MEDS: ZESTRIL TAB 10 MG PO SCH (09:46)
[2019-08-21] MEDS: PHENERGAN TAB 25 MG PO PRN (09:46)
[2019-08-21] MEDS ORDERED: DESYREL PO SCH (21:00)
[2019-08-21] MEDS: SNACK - Diabetic Appropriate PO SCH (21:10)
[2019-08-21] MEDS: LANTUS SC SCH (21:21)
[2019-08-22] MEDS: ZOSYN VIAL 3.375 GRAMS 3.375 G in NS 100 ML IV + SPIKE MINIBAG* 100 ML IV SCH ×2 (05:30→14:39)
[2019-08-22] MEDS: ROXICODONE TAB 5 MG PO SCH ×2 (05:30→13:46)
[2019-08-22] MEDS: LR 1000 ML IV 1,000 ML IV SCH ×2 (05:30→14:40)
[2019-08-22 06:54] LABS: BASOPHILS % (AUTO) 0.2 % (0.2-1.0); EOSINOPHILS % (AUTO) 0.2 % (0.9-2.9); HEMATOCRIT 35.3 % (42.0-54.0); HEMOGLOBIN 12.3 g/dL (13.5-18.0); LYMPHOCYTES # (AUTO) 2.8 X10^3/uL (1.3-2.9); LYMPHOCYTES % (AUTO) 29.9 % (21.0-51.0); MEAN CORPUSCULAR HEMOGLOBIN 27.8 pg (27.0-34.0); MEAN CORPUSCULAR HGB CONC 34.7 g/dL (33.0-35.0); MEAN CORPUSCULAR VOLUME 80.1 fL (80.0-100.0); MONOCYTES # (AUTO) 1.1 x10^3/uL (0.3-0.8); MONOCYTES % (AUTO) 11.3 % (0.0-13.0); NEUTROPHILS # (AUTO) 5.4 x10^3/uL (2.2-4.8); NEUTROPHILS % (AUTO) 58.4 % (42.0-75.0); PLATELET COUNT 163 X10^3/uL (150.0-450.0); RED BLOOD COUNT 4.41 X10^6/uL (4.7-6.0); RED CELL DISTRIBUTION WIDTH 19.8 % (11.6-16.5); WHITE BLOOD COUNT 9.3 X10^3/uL (3.6-10.0)
[2019-08-22 07:02] LABS: ALANINE AMINOTRANSFERASE 21 Units/L (12-78); ALBUMIN 3.1 g/dL (3.4-5.0); ALKALINE PHOSPHATASE 50 Units/L (46-116); AMYLASE 102 Units/L (25-115); ASPARTATE AMINO TRANSFERASE 20 Units/L (15-37); BLOOD UREA NITROGEN 9 mg/dL (7-18); CALCIUM 8.5 mg/dL (8.5-10.1); CARBON DIOXIDE 28.8 mmol/L (21-32); CHLORIDE 101 mmol/L (98-107); COR CA(FOR HYPOALB) 9.2 mg/dL (8.5-10.1); COR NA(FOR HYPERGLY) 140 mmol/L (136-145); LIPASE 81 Units/L (73-393); MAGNESIUM 1.8 mg/dL (1.7-2.9); PHOSPHORUS 1.7 mg/dL (2.6-4.7); SODIUM 138 mmol/L (136-145); TOTAL PROTEIN 6.6 g/dL (6.4-8.2); eGFR NON BLACK RACES > 60 (>60)
[2019-08-22] MEDS: LINZESS PO SCH (08:42)
[2019-08-22] MEDS: ZESTRIL TAB 10 MG PO SCH (08:42)
[2019-08-22] MEDS: K-DUR TAB 20 MEQ PO SCH (08:42)
[2019-08-22] MEDS: LOPRESSOR TAB 25 MG PO SCH (08:43)
[2019-08-22] MEDS: PHENERGAN TAB 25 MG PO PRN (09:22)
--- NOTE | 2019-08-22 11:59 | RAD ---
HISTORYconstipation, abd painSTUDYX-ray abdomen one viewCOMPARISONX-ray 07/2019FINDINGSLikely mild constipation in the rectosigmoid colon, improved from prior study. No definite retained fecal material is seen elsewhere. Mild small bowel air is likely within normal limits. Phleboliths are seen in the left side of the pelvis.IMPRESSIONMild constipation in the rectosigmoid colon is improved from prior study.Electronically signed by: Lennox Ramos (Aug 22, 2019 11:58:03)
[2019-08-22 14:42] VITALS: BP 158/104
== END 2019-08-22 15:15 | disposition home or self-care (01) | DRG 637 ==
LOC: ER 18:25 → ICU 22:29
PROVIDERS: ADMIT Obstetrics & Gynecology Obstetrics; ATTEND Obstetrics & Gynecology Obstetrics
DX: R06.02 Shortness of breath; E86.0 Dehydration; N17.8 Other acute kidney failure; Z79.4 Long term (current) use of insulin; K59.01 Slow transit constipation; E10.10 Type 1 diabetes mellitus with ketoacidosis without coma; R94.31 Abnormal electrocardiogram [ECG] [EKG]; R11.2 Nausea with vomiting, unspecified; A41.89 Other specified sepsis; D72.825 Bandemia; R26.89 Other abnormalities of gait and mobility; B27.00 Gammaherpesviral mononucleosis without complication; B96.1 Klebsiella pneumoniae [K. pneumoniae] as the cause of diseases classified elsewhere

== ENCOUNTER 2020-03-12 04:04 | Inpatient (IN) ==
[2020-03-12 04:19] VITALS: BMI 21.9
[2020-03-12] MEDS ORDERED: ZOFRAN INJ 4 MG VIAL IVP ONE (04:26)
[2020-03-12] MEDS ORDERED: NS 1000 ML 1,000 ML IV ONE ×3 (04:26→07:43)
[2020-03-12] MEDS ORDERED: ZOFRAN INJ 4 MG VIAL ONE (04:32)
[2020-03-12] MEDS ORDERED: NS 1000 ML 1,000 ML ONE ×3 (04:32→07:40)
--- NOTE | 2020-03-12 04:37 | DR.HYPOGLY ---
HPI Time Seen Time Seen by Provider: 03/12/20 04:25 PCP Primary Care Physician: jessica HPI Comment HPI Comment: A 39 y/o male presenting via [facility] with elevated BS and hurting all over. He also has nausea and vomiting. He is a known diabetic and chronic pain patient. He states that he takes NPH Insulin 22 units BID along with using SSI coverage. He professed compliance with the regimen. Sometimes yesterday evening his BS was 400 + and his mother gave him some undisclosed amount of Insulin. The FBS per EMS upon arrival on scene was 272. With regards to hurting everywhere, this is non-specific pain for which he had been taking Methadone but he states that he has not had Methadone in a week. Asked why he hasn't called his PCP, he states that he was discharged from the practice. Complaint Chief Complaint:: PT C/O N/V AND PAIN ALLOVER COVID-19 Coronavirus risk:travel/contact w/high risk person: No Has patient experienced Coronavirus symptoms: No Nurses notes reviewed Nurses Notes Review: Yes Source History Provided: Patient Mode of Arrival Mode of Arrival: EMS Timing Onset of Chief Complaint: 03/10/20 Came on: Gradually Duration Duration: Intermittent Context [place]: denies Shaky, Confused, Found disoriented and Found unresponsive Symptoms: None History of: Diabetes and Insulin use PMH PMH Past Medical History: Yes Past Medical History: Diabetes Past Surgical History: Yes Surgical History: Other Family History History of Family Medical Conditions: Yes Family Medical History: Diabetes Mellitus, Sudden Cardiac and Hypertension Social History Type of Tobacco Use: Cigarettes Does any household member use tobacco: Yes Alcohol Use: None Do you use any recreational Drugs:: No Lives With: Family Lives Where: Home Travel Risk Coronavirus risk:travel/contact w/high risk person: No Has patient experienced Coronavirus symptoms: No Infectious screening In the last 2 months have you had wt loss of >10#?: NO Have you had fever, night sweats or hemotysis?: No Have you traveled outside the country in the last 6 months?: No Isolation: Standard ROS Review of Systems Constitutional: No Symptoms Reported Eyes: No Symptoms Reported ENTM: No Symptoms Reported Respiratoy: No Symptoms Reported Cardiovascular: No Symptoms Reported Gastrointestinal/Abdominal: Nausea and Vomiting Genitourinary: No Symptoms Reported Neurological: No Symptoms Reported Musculoskeletal: Other (hurting all over) Integumentary: No Symptoms Reported Hematologic/Lymphatic: No Symptoms Reported Endocrine: No Symptoms Reported Psychiatric: No Symptoms Reported PE Vital Signs Vitals: Temperature 98.4 F Pulse Rate 114 Respiratory Rate 18 Blood Pressure [Left Arm] 132/84 Blood Pressure [Right Arm] 132/81 Blood Pressure 146/82 O2 Sat by Pulse Oximetry 100 General Limitations: No Limitations General Appearance: Alert and In No Apparent Distress Eyes Eye exam: Normal Appearance and EOMI ENT ENT Exam: Normal Exam, Normal Oropharynx, Normal External Ear Exam and Mucous Membranes Moist Neck Neck Exam: Normal Inspection, Full ROM and Trachea Midline Chest Chest Inspection: Normal Inspection and Symmetric Chest Wall Rise Respiratory Respiratory Exam: Normal Lung Sounds Bilat Cardiovascular Cardiovascular Exam: Regular Rate, Normal Rhythm, Normal Heart Sounds, +S1 and +S2 Abdominal Exam Abdominal Exam: Normal Inspection, Normal Bowel Sounds and Soft; negative Distention, Tenderness, Guarding, Rebound, Rigidity, Dimnished Bowel Sounds, Hyperactive Bowel Sounds, Hypoactive Bowel Sounds, Organomegaly, Trauma, Inci latrice, Ascites, Mass, Bruit, Pulsatile Mass and Hernia Extremities Extremities Exam: Normal Inspection and Full ROM Back Back Exam: Normal Inspection and Full ROM Neurologic Neurological Exam: Alert and Oriented X3 Psychiatric Psychiatric Exam: Normal Mood and Anxious Skin Skin Exam: Dry and Normal Color COURSE Reevaluation 1st: Improved Education/Counseling Education/Counseling: Patient, Education and Counseling Educated On: Treatment, Diagnosis, Prognosis and Needs for Follow Up ROR Labs Reviewed Result Diagrams: 03/12/20 04:20 03/12/20 04:20 Laboratory: WBC 17.4 X10^3/uL (3.6-10.0) H 03/12/20 04:20 RBC 5.28 X10^6/uL (4.7-6.0) 03/12/20 04:20 Hgb 15.0 g/dL (13.5-18.0) 03/12/20 04:20 Hct 46.8 % (42.0-54.0) 03/12/20 04:20 MCV 88.6 fL (80.0-100.0) 03/12/20 04:20 MCH 28.4 pg (27.0-34.0) 03/12/20 04:20 MCHC 32.0 g/dL (33.0-35.0) L 03/12/20 04:20 RDW 14.2 % (11.6-16.5) 03/12/20 04:20 Plt Count 290 X10^3/uL (150.0-450.0) 03/12/20 04:20 MPV 8.3 fL (7.4-11.0) 03/12/20 04:20 Neut % (Auto) 79.2 % (42.0-75.0) H 03/12/20 04:20 Lymph % (Auto) 17.8 % (21.0-51.0) L 03/12/20 04:20 [place] % (Auto) 2.3 % (0.0-13.0) 03/12/20 04:20 Eos % (Auto) 0.1 % (0.9-2.9) L 03/12/20 04:20 Baso % (Auto) 0.6 % (0.2-1.0) 03/12/20 04:20 Neut # (Auto) 13.8 x10^3/uL (2.2-4.8) H 03/12/20 04:20 Lymph # (Auto) 3.1 X10^3/uL (1.3-2.9) H 03/12/20 04:20 [place] # (Auto) 0.4 x10^3/uL (0.3-0.8) 03/12/20 04:20 Eos # (Auto) 0.0 x10^3/uL (0.0-0.2) 03/12/20 04:20 Baso # (Auto) 0.1 X10^3/uL (0.0-0.1) 03/12/20 04:20 Absolute Nucleated RBC 0.0 /100WBC 03/12/20 04:20 Sample Site Lbra 03/12/20 05:24 ABG pH 7.150 (7.35-7.45) L* 03/12/20 05:24 ABG pCO2 14.0 mmHg (35.0-45.0) L* 03/12/20 05:24 ABG pO2 140.0 mmHg (80.0-100.0) H 03/12/20 05:24 ABG HCO3 4.9 mmol/L (22-26) L* 03/12/20 05:24 ABG O2 Saturation 98.0 % (90-100) 03/12/20 05:24 ABG Base Excess -21.7 mmol/L (-2.0-2.0) L 03/12/20 05:24 Geoff Test N/a 03/12/20 05:24 A-a Gradient -8.0 mmHg 03/12/20 05:24 FiO2 21.0 03/12/20 05:24 Blood Gas Comments Pt reece well eb 03/12/20 05:24 Sodium 133 mmol/L (136-145) L 03/12/20 04:20 Corrected Sodium 140 mmol/L (136-145) 03/12/20 04:20 Potassium 4.6 mmol/L (3.5-5.1) 03/12/20 04:20 Chloride 96 mmol/L (98-107) L 03/12/20 04:20 Carbon Dioxide 11.3 mmol/L (21-32) L* 03/12/20 04:20 BUN 17 mg/dL (7-18) 03/12/20 04:20 Creatinine 1.40 mg/dL (0.70-1.30) H 03/12/20 04:20 Est GFR (MDRD) Af Amer > 60 (>60) 03/12/20 04:20 Est GFR (MDRD) Non-Af > 60 (>60) 03/12/20 04:20 Glucose 392 mg/dL (65-99) H 03/12/20 04:20 Hemoglobin A1c 10.3 % 03/12/20 04:20 Lactic Acid 1.3 mmol/L (0.4-2.0) 03/12/20 05:20 Calcium 10.0 mg/dL (8.5-10.1) 03/12/20 04:20 Corrected Calcium TNP 03/12/20 04:20 Total Bilirubin 1.40 mg/dL (0.2-1.0) H 03/12/20 04:20 AST 12 Units/L (15-37) L 03/12/20 04:20 ALT 13 Units/L (12-78) 03/12/20 04:20 Alkaline Phosphatase 97 Units/L (46-116) 03/12/20 04:20 Total Protein 8.8 g/dL (6.4-8.2) H 03/12/20 04:20 Albumin 4.5 g/dL (3.4-5.0) 03/12/20 04:20 Globulin 4.3 g/dL (2.5-4.5) 03/12/20 04:20 Albumin/Globulin Ratio 1.0 Ratio (1.1-2.1) L 03/12/20 04:20 Specimen Type Clean catch urine 03/12/20 04:59 Urine Color Pale yellow (YELLOW) 03/12/20 04:59 Urine Appearance Clear (CLEAR) 03/12/20 04:59 Urine pH 5.0 (5.0 - 8.0) 03/12/20 04:59 Ur Specific Eros 1.020 (1.000-1.030) 03/12/20 04:59 Urine Protein 1+ (NEGATIVE) 03/12/20 04:59 Urine Glucose (UA) 4+ (NEGATIVE) 03/12/20 04:59 Urine Ketones 4+ (NEGATIVE) 03/12/20 04:59 Urine Occult Blood Negative (NEGATIVE) 03/12/20 04:59 Urine Nitrite Negative (NEGATIVE) 03/12/20 04:59 Urine Bilirubin Negative (NEGATIVE) 03/12/20 04:59 Urine Urobilinogen Normal (NORMAL) 03/12/20 04:59 Ur Leukocyte Esterase 1+ (NEGATIVE) 03/12/20 04:59 Urine RBC None seen /HPF (0-3) 03/12/20 04:59 Urine WBC 0-2 /HPF (0-5) 03/12/20 04:59 Ur Squamous Epith Cells Rare /HPF (NEGATIVE) 03/12/20 04:59 Urine Bacteria Negative /HPF (NEGATIVE) 03/12/20 04:59 Ur Culture Indicated? No/not indicated 03/12/20 04:59 Urine Opiates Screen Negative (NEG=<300) 03/12/20 04:59 Urine Methadone Screen Positive (NEG=<300) 03/12/20 04:59 Ur Barbiturates Screen Negative (NEG=<200) 03/12/20 04:59 Ur Phencyclidine Scrn Negative (NEG=<25) 03/12/20 04:59 Ur Amphetamines Screen Negative (NEG=<1000) 03/12/20 04:59 U Benzodiazepines Scrn Positive (NEG=<200) 03/12/20 04:59 Urine Cocaine Screen Negative (NEG=<300) 03/12/20 04:59 U Marijuana (THC) Screen Negative (NEG=<50) 03/12/20 04:59 Acetone, Semi-Quant Small (NEGATIVE) H 03/12/20 04:20 Opioid Opioid Risk Tool Family Hx of Substance Abuse: Illegal Drugs Personal Hx of Substance Abuse: Illegal Drugs Age (Ajit box if 16-45): Yes History of Preadolescent Sexual Abuse: No Psychological Disease: PTSD Total: 2 Total Score Risk Category: Low Risk Copyright: [facility] predicting aberrant behaviors Diagnosis Discharge Problem: Metabolic acidosis due to diabetes mellitus Leukocytosis Qualifiers: Leukocytosis type: other Qualified Code(s): D72.828 - Other elevated white blood cell count Type 1 diabetes mellitus Qualifiers: Diabetes mellitus complication status: with hyperglycemia Qualified Code(s): E10.65 - Type 1 diabetes mellitus with hyperglycemia Low back pain Qualifiers: Chronicity: chronic Back pain laterality: unspecified Sciatica presence: unspecified whether sciatica present Qualified Code(s): M54.5 - Low back pain ADDITIONAL NOTES Additional Notes Additional Notes: Name: JUANITA MARRERO : 1980 Sex: M Location: ER Order Number(s): [id number] Procedure(s):KUB Ordering Physician: VITO VALDIVIA Primary Care: [email or web address] Service Date: 03/12/20 Service Time: 0426 HISTORY PT C/O N/V AND PAIN ALLOVER DIABETES STUDY KUB COMPARISON 08/22/2019 FINDINGS Evaluation of the abdomen demonstrates a nonspecific bowel gas pattern. Mildly air distended distal colon with evidence of moderate colonic stool burden. No pathological soft tissue mass or calcification can be observed. The bony structures are grossly intact. IMPRESSION Moderate colonic stool burden with air distension distally. Electronically signed by: Della Do (Mar 12, 2020 04:58:40) Report Electronically signed: 03/12/20 [id number] CC: Gurjit
[2020-03-12] MEDS ORDERED: DILAUDID INJ ONE ×2 (04:40→08:40)
[2020-03-12 04:43] LABS: BASOPHILS # (AUTO) 0.1 X10^3/uL (0.0-0.1); BASOPHILS % (AUTO) 0.6 % (0.2-1.0); EOSINOPHILS % (AUTO) 0.1 % (0.9-2.9); HEMATOCRIT 46.8 % (42.0-54.0); LYMPHOCYTES # (AUTO) 3.1 X10^3/uL (1.3-2.9); LYMPHOCYTES % (AUTO) 17.8 % (21.0-51.0); MEAN CORPUSCULAR HEMOGLOBIN 28.4 pg (27.0-34.0); MEAN CORPUSCULAR VOLUME 88.6 fL (80.0-100.0); MEAN PLATELET VOLUME 8.3 fL (7.4-11.0); MONOCYTES # (AUTO) 0.4 x10^3/uL (0.3-0.8); MONOCYTES % (AUTO) 2.3 % (0.0-13.0); NEUTROPHILS # (AUTO) 13.8 x10^3/uL (2.2-4.8); NEUTROPHILS % (AUTO) 79.2 % (42.0-75.0); PLATELET COUNT 290 X10^3/uL (150.0-450.0); RED BLOOD COUNT 5.28 X10^6/uL (4.7-6.0); RED CELL DISTRIBUTION WIDTH 14.2 % (11.6-16.5); WHITE BLOOD COUNT 17.4 X10^3/uL (3.6-10.0)
[2020-03-12] MEDS: DILAUDID INJ IVP PRN ×5 (04:43→20:27)
[2020-03-12 04:45] LABS: BLOOD UREA NITROGEN 17 mg/dL (7-18); CHLORIDE 96 mmol/L (98-107); COR NA(FOR HYPERGLY) 140 mmol/L (136-145); SODIUM 133 mmol/L (136-145); eGFR NON BLACK RACES > 60 (>60)
[2020-03-12 04:50] LABS: ALANINE AMINOTRANSFERASE 13 Units/L (12-78); ALBUMIN 4.5 g/dL (3.4-5.0); ALKALINE PHOSPHATASE 97 Units/L (46-116); ASPARTATE AMINO TRANSFERASE 12 Units/L (15-37); TOTAL PROTEIN 8.8 g/dL (6.4-8.2)
[2020-03-12 04:57] LABS: CARBON DIOXIDE 11.3 mmol/L (21-32)
--- NOTE | 2020-03-12 05:00 | RAD ---
HISTORYPT C/O N/V AND PAIN ALLOVER [id number]/2020FINDINGSEvaluation of the abdomen demonstrates a nonspecific valeria l gas pattern. Mildly air distended distal colon with evidence of moderate colonic stool burden. No p athological soft tissue mass or calcification can be observed. The bony structures are grossly intac t.IMPRESSIONModerate colonic stool burden with air distension distally.Electronically signed by: Della Do (Mar 12, 2020 04:58:40)
[2020-03-12 05:29] LABS: ABG BASE EXCESS -21.7 mmol/L (-2.0-2.0)
[2020-03-12 05:31] LABS: ABG HCO3 4.9 mmol/L (22-26)
[2020-03-12 05:31] LABS: BILIRUBIN,URINE NEGATIVE (NEGATIVE); BLOOD/HEMOGLOBIN,URINE NEGATIVE (NEGATIVE); GLUCOSE, URINE 4+ (NEGATIVE); KETONES,URINE 4+ (NEGATIVE); LEUKOCYTE ESTERASE ,URINE 1+ (NEGATIVE); NITRITES,URINE NEGATIVE (NEGATIVE); PROTEIN,URINE 1+ (NEGATIVE); UROBILINOGEN,URINE NORMAL (NORMAL)
[2020-03-12] MEDS ORDERED: SODIUM BICARBONATE 8.4% INJ ADULT IVP ONE ×2 (05:34→13:12)
[2020-03-12] MEDS ORDERED: HumaLOG SC PRN (05:34)
[2020-03-12 05:39] LABS: APPEARANCE,URINE CLEAR (CLEAR); COLOR,URINE PALE YELLOW (YELLOW)
[2020-03-12 05:40] LABS: BACTERIA,URINE NEGATIVE /HPF (NEGATIVE); RBC,URINE NONE SEEN /HPF (0-3); SQUAMOUS EPITHELIAL CELL,UR RARE /HPF (NEGATIVE)
[2020-03-12] MEDS ORDERED: SODIUM BICARBONATE 8.4% INJ ADULT ONE (05:45)
[2020-03-12] MEDS ORDERED: HumuLIN R ONE (05:46)
[2020-03-12] MEDS ORDERED: NS 1000 ML 1,000 ML IV SCH (09:14)
[2020-03-12 10:08] LABS: BLOOD UREA NITROGEN 15 mg/dL (7-18); CALCIUM 9.3 mg/dL (8.5-10.1); CHLORIDE 103 mmol/L (98-107); COR NA(FOR HYPERGLY) 147 mmol/L (136-145); CREATININE 1.49 mg/dL (0.70-1.30); SODIUM 141 mmol/L (136-145); eGFR NON BLACK RACES 56 (>60)
[2020-03-12 10:13] LABS: CARBON DIOXIDE 7.6 mmol/L (21-32)
--- NOTE | 2020-03-12 10:15 | RAD ---
HISTORYLEUKOCYTOSIS/DKA. Chest pain.STUDYSingle portable view of the chest.COMPARISONChest radiograph dated August 19, 2019.FINDINGSThe trachea is midline. The cardiac silhouette is unremarkable.The lungs are clear without focal infiltrate or effusion. A subtle scar-like opacity projects in the right upper lobe.The bony thorax is unremarkable.IMPRESSIONNo acute cardiopulmonary disease. Subtle scar-like opacity projects in the right upper lobe. This could be followed up with outpatient noncontrast chest CT imaging.Electronically signed by: ROSE URIAS III (Mar 12, 2020 10:13:40)
[2020-03-12 10:41] LABS: CKMB % 5.5 % (<4); CREATINE KINASE 73 Units/L (39-308); TROPONIN I < 0.02 ng/mL (0-1.5)
[2020-03-12 10:50] LABS: BILIRUBIN,URINE NEGATIVE (NEGATIVE); BLOOD/HEMOGLOBIN,URINE 1+ (NEGATIVE); GLUCOSE, URINE 4+ (NEGATIVE); KETONES,URINE 4+ (NEGATIVE); LEUKOCYTE ESTERASE ,URINE NEGATIVE (NEGATIVE); NITRITES,URINE NEGATIVE (NEGATIVE); PROTEIN,URINE 2+ (NEGATIVE); UROBILINOGEN,URINE NORMAL (NORMAL)
[2020-03-12] MEDS: PHENERGAN INJ 25 MG IM PRN ×2 (10:53→18:38)
[2020-03-12 11:01] LABS: ABG HCO3 3.4 mmol/L (22-26); FRACTIONATED INSPIRED OXYGEN 21
[2020-03-12 11:01] LABS: APPEARANCE,URINE CLEAR (CLEAR); BACTERIA,URINE NEGATIVE /HPF (NEGATIVE); COLOR,URINE YELLOW (YELLOW); RBC,URINE NONE SEEN /HPF (0-3); SQUAMOUS EPITHELIAL CELL,UR NEGATIVE /HPF (NEGATIVE)
[2020-03-12] MEDS ORDERED: MYXREDLIN 100 UNIT/100 ML BAG 100 UNIT/100 ML PLAST..BAG IV PRN ×2 (11:31→21:59)
[2020-03-12] MEDS ORDERED: D5W 1000 ML IV 1,000 ML IV SCH (12:00)
[2020-03-12 12:15] LABS: BLOOD UREA NITROGEN 16 mg/dL (7-18); CALCIUM 9.6 mg/dL (8.5-10.1); CHLORIDE 105 mmol/L (98-107); COR NA(FOR HYPERGLY) 150 mmol/L (136-145); CREATININE 1.56 mg/dL (0.70-1.30); SODIUM 142 mmol/L (136-145); eGFR NON BLACK RACES 53 (>60)
[2020-03-12] MEDS ORDERED: HumuLIN R SUBCUT PRN (12:15)
[2020-03-12 12:19] LABS: CARBON DIOXIDE 5.3 mmol/L (21-32)
[2020-03-12 12:25] LABS: SERUM ACETONE MODERATE (NEGATIVE)
[2020-03-12] MEDS: D5W IV SCH ×6 (13:30→22:09)
[2020-03-12] MEDS: SODIUM BICARBONATE IV SCH ×6 (13:30→22:09)
--- NOTE | 2020-03-12 13:46 | DR.H&P ---
H&P History & Physical for Day of: H&P Date: 03/12/20 Chief Complaint Chief Complaint: Elevated blood sugars Nausea/vomiting, Pain Allergies Allergies Allergy/AdvReac Type Severity Reaction Status Date / Time No Known Drug Allergies Allergy Verified 11/03/18 01:58 History of Present Illness History of Present Illness: Pt is a 39 y/o male pmhx DMT1, Opioid dependence, HTN, presenting after having elevated blood sugars and generalized pain. He states that blood sugars were greater than 400. Reports having nausea, vomiting. He is a known diabetic and chronic pain patient. He states that his insulin regiment is NPH Insulin 22 units BID and SSI. On exam patient appeared in pain and was tachypnic. VS:125/67/141/32/100, Labs/imaging: Wbc 17.4, Hgb 15, Plt 290, Na 141, K 4.8, HCO3 7.6, Cr 1.49, Glucose 366, AST:12, ALT 13, ALP 97, Troponin negative, UA:+glucose, +ketones, Small acetone, UDS:+Methadone, +Benzodiazepines, COVID19 negative, A1c:10.3, LA 1.3, AB.15/14/140/4.9/98% on RA, CXR: No acute cardiopulmonary disease. Subtle scar-like opacity projects in the right upper lobe. This could be followed up with outpatient noncontrast chest CT imaging. KUB: Moderate colonic stool burden with air distension distally. Patient received 2L IVF bolus in ED, will start on Insulin gtt, and DKA protocol. His ABG reveals severe metabolic acidosis with respiratory compensation. Will place patient in ICU and on telemetry for close monitoring. Add bicarbonate to IVF, serial BMP and FSBG Q2H. Pt also having some withdrawals d/t being on chronic pain medication methadone and recent dismissal from pcp. Will provide pain medication and ativan to prevent withdrawals and seizures d/t cessation of senior living use. Will continue to monitor closely and follow up l abs/imaging. Critical care time spent 30-74 minutes in clinical assessment, reviewing labs/imaging, decision making, and documentation. Past Medical History Past Medical History: Diabetes Additional Medical History: DKA, Gastroparesis, Chronic Low Back Pain With Radiculopathy, Pancreatitis, UTI's Past Surgical History Surgical History: Other Additional Surgical History: [place] Teeth Surgically Removed Family History Family Medical History: Diabetes Mellitus, Sudden Cardiac and Hypertension Social History Does patient currently use any type of tobacco product: Yes Have you used tobacco products in the last 12 months: Yes Type of Tobacco Use: Cigarettes Does any household member use tobacco: Yes Alcohol Use: None Drug Use: Prescription Drugs, Methamphetamine and Other Medications Home Medications: No Known Drug Allergies Allergy (Verified 11/03/18 01:58) Labs Result Diagrams: 03/12/20 04:20 03/12/20 11:58 Labs: Laboratory WBC 17.4 X10^3/uL (3.6-10.0) H 03/12/20 04:20 RBC 5.28 X10^6/uL (4.7-6.0) 03/12/20 04:20 Hgb 15.0 g/dL (13.5-18.0) 03/12/20 04:20 Hct 46.8 % (42.0-54.0) 03/12/20 04:20 MCV 88.6 fL (80.0-100.0) 03/12/20 04:20 MCH 28.4 pg (27.0-34.0) 03/12/20 04:20 MCHC 32.0 g/dL (33.0-35.0) L 03/12/20 04:20 RDW 14.2 % (11.6-16.5) 03/12/20 04:20 Plt Count 290 X10^3/uL (150.0-450.0) 03/12/20 04:20 MPV 8.3 fL (7.4-11.0) 03/12/20 04:20 Neut % (Auto) 79.2 % (42.0-75.0) H 03/12/20 04:20 Lymph % (Auto) 17.8 % (21.0-51.0) L 03/12/20 04:20 [place] % (Auto) 2.3 % (0.0-13.0) 03/12/20 04:20 Eos % (Auto) 0.1 % (0.9-2.9) L 03/12/20 04:20 Baso % (Auto) 0.6 % (0.2-1.0) 03/12/20 04:20 Neut # (Auto) 13.8 x10^3/uL (2.2-4.8) H 03/12/20 04:20 Lymph # (Auto) 3.1 X10^3/uL (1.3-2.9) H 03/12/20 04:20 [place] # (Auto) 0.4 x10^3/uL (0.3-0.8) 03/12/20 04:20 Eos # (Auto) 0.0 x10^3/uL (0.0-0.2) 03/12/20 04:20 Baso # (Auto) 0.1 X10^3/uL (0.0-0.1) 03/12/20 04:20 Absolute Nucleated RBC 0.0 /100WBC 03/12/20 04:20 Sample Site Lb 03/12/20 10:24 ABG pH 7.100 (7.35-7.45) L* 03/12/20 10:24 ABG pCO2 11.0 mmHg (35.0-45.0) L* 03/12/20 10:24 ABG pO2 109.0 mmHg (80.0-100.0) H 03/12/20 10:24 ABG HCO3 3.4 mmol/L (22-26) L* 03/12/20 10:24 ABG O2 Saturation 96.0 % (90-100) 03/12/20 10:24 ABG Base Excess -24.0 mmol/L (-2.0-2.0) L 03/12/20 10:24 Geoff Test N/a 03/12/20 10:24 A-a Gradient 27.0 mmHg 03/12/20 10:24 FiO2 21 03/12/20 10:24 Blood Gas Comments Pt reece well. cdn 03/12/20 10:24 Sodium 142 mmol/L (136-145) 03/12/20 11:58 Corrected Sodium 150 mmol/L (136-145) H 03/12/20 11:58 Potassium 4.9 mmol/L (3.5-5.1) 03/12/20 11:58 Chloride 105 mmol/L (98-107) 03/12/20 11:58 Carbon Dioxide 5.3 mmol/L (21-32) L* 03/12/20 11:58 BUN 16 mg/dL (7-18) 03/12/20 11:58 Creatinine 1.56 mg/dL (0.70-1.30) H 03/12/20 11:58 Est GFR (MDRD) Af Amer > 60 (>60) 03/12/20 11:58 Est GFR (MDRD) Non-Af 53 (>60) L 03/12/20 11:58 Glucose 449 mg/dL (65-99) H 03/12/20 11:58 POC Glucose (mg/dL) 419 mg/dL (65-99) H 03/12/20 12:06 Hemoglobin A1c 10.3 % 03/12/20 04:20 Lactic Acid 1.3 mmol/L (0.4-2.0) 03/12/20 05:20 Calcium 9.6 mg/dL (8.5-10.1) 03/12/20 11:58 Corrected Calcium TNP 03/12/20 04:20 Total Bilirubin 1.40 mg/dL (0.2-1.0) H 03/12/20 04:20 AST 12 Units/L (15-37) L 03/12/20 04:20 ALT 13 Units/L (12-78) 03/12/20 04:20 Alkaline Phosphatase 97 Units/L (46-116) 03/12/20 04:20 Creatine Kinase 73 Units/L (39-308) 03/12/20 09:20 CK-MB (CK-2) 4.0 ng/mL (0-4.0) 03/12/20 09:20 CK/CKMB % Calc 5.5 % (<4) 03/12/20 09:20 Troponin I < 0.02 ng/mL (0-1.5) 03/12/20 09:20 Total Protein 8.8 g/dL (6.4-8.2) H 03/12/20 04:20 Albumin 4.5 g/dL (3.4-5.0) 03/12/20 04:20 Globulin 4.3 g/dL (2.5-4.5) 03/12/20 04:20 Albumin/Globulin Ratio 1.0 Ratio (1.1-2.1) L 03/12/20 04:20 Specimen Type Catherized urine 03/12/20 10:10 Urine Color Yellow (YELLOW) 03/12/20 10:10 Urine Appearance Clear (CLEAR) 03/12/20 10:10 Urine pH 5.0 (5.0 - 8.0) 03/12/20 10:10 Ur Specific [place] 1.020 (1.000-1.030) 03/12/20 10:10 Urine Protein 2+ (NEGATIVE) 03/12/20 10:10 Urine Glucose (UA) 4+ (NEGATIVE) 03/12/20 10:10 Urine Ketones 4+ (NEGATIVE) 03/12/20 10:10 Urine Occult Blood 1+ (NEGATIVE) 03/12/20 10:10 Urine Nitrite Negative (NEGATIVE) 03/12/20 10:10 Urine Bilirubin Negative (NEGATIVE) 03/12/20 10:10 Urine Urobilinogen Normal (NORMAL) 03/12/20 10:10 Ur Leukocyte Esterase Negative (NEGATIVE) 03/12/20 10:10 Urine RBC None seen /HPF (0-3) 03/12/20 10:10 Urine WBC None seen /HPF (0-5) 03/12/20 10:10 Ur Squamous Epith Cells Negative /HPF (NEGATIVE) 03/12/20 10:10 Urine Bacteria Negative /HPF (NEGATIVE) 03/12/20 10:10 Ur Culture Indicated? No/not indicated 03/12/20 10:10 Urine Opiates Screen Negative (NEG=<300) 03/12/20 04:59 Urine Methadone Screen Positive (NEG=<300) 03/12/20 04:59 Ur Barbiturates Screen Negative (NEG=<200) 03/12/20 04:59 Ur Phencyclidine Scrn Negative (NEG=<25) 03/12/20 04:59 Ur Amphetamines Screen Negative (NEG=<1000) 03/12/20 04:59 U Benzodiazepines Scrn Positive (NEG=<200) 03/12/20 04:59 Urine Cocaine Screen Negative (NEG=<300) 03/12/20 04:59 U Marijuana (THC) Screen Negative (NEG=<50) 03/12/20 04:59 Acetone, Semi-Quant Moderate (NEGATIVE) H 03/12/20 11:58 SARS-CoV-2 (PCR) Negative (NEGATIVE) 03/12/20 07:29 Review of Systems Constitutional: Weakness; denies Fever and Chills Eyes: No Symptoms Reported ENT: No Symptoms Reported Respiratory: Shortness of Breath Cardiovascular: Palpitations and Light Headedness Gastrointestinal: Nausea, Vomiting, Abdominal Pain and Constipation; denies Diarrhea Genitourinary: No Symptoms Reported Musculoskeletal: Back Pain Skin: No Symptoms Reported Neurological: No Symptoms Reported Physical Exam Vital Signs: Temperature 98 F Pulse Rate [Apical] 138 Pulse Rate 125 Respiratory Rate 20 Blood Pressure [Left Arm] 145/84 Blood Pressure [Right Arm] 132/81 Blood Pressure 125/63 O2 Sat by Pulse Oximetry 100 Oriented: Normal Eyes: Normal Ear: Normal Nose: Normal Throat: Normal Respiratory: Clear Throughout Cardiovascular: Tachycardia : Normal Auscultation: Bowel Sounds: Normal Palpation: Normal Tenderness: Epigastric and Mild Skin: Normal Musculoskeletal: Normal Psychiatric: Anxiety Mood Description: Anxious Affect: Anxious Speech Pattern: Appropriate Assessment/Plan (1) DKA, type 1: Qualifiers: Diabetes mellitus complication detail: without coma Qualified Code(s): E10.10 - Type 1 diabetes mellitus with ketoacidosis without coma Status: Acute Plan: DKA protocol, close monitoring, serial BMPs, FSBG Q2H Insulin gtt, IVF with bicarbonate Monitor vitals (2) Metabolic acidosis due to diabetes mellitus: Status: Acute (3) Opioid dependence: Qualifiers: Substance use status: with unspecified opioid-induced disorder Qualified Code(s): F11.29 - Opioid dependence with unspecified opioid-induced disorder Status: Acute Review H&P Reviewed: Yes Patient was examined?: Yes
[2020-03-12] MEDS ORDERED: XANAX PO SCH (15:00)
[2020-03-12] MEDS: ATIVAN INJ 2 MG VIAL IVP SCH ×2 (15:44→20:26)
[2020-03-12 18:32] LABS: BLOOD UREA NITROGEN 16 mg/dL (7-18); CALCIUM 9.4 mg/dL (8.5-10.1); CHLORIDE 108 mmol/L (98-107); COR NA(FOR HYPERGLY) 151 mmol/L (136-145); CREATININE 1.64 mg/dL (0.70-1.30); SODIUM 144 mmol/L (136-145); eGFR NON BLACK RACES 50 (>60)
[2020-03-12 18:36] LABS: CARBON DIOXIDE 5.9 mmol/L (21-32)
[2020-03-12] MEDS: SNACK - Diabetic Appropriate PO SCH (19:36)
[2020-03-12 21:27] LABS: ABG ALLEN TEST POS; FRACTIONATED INSPIRED OXYGEN 21
[2020-03-12 21:54] LABS: CALCIUM 9.6 mg/dL (8.5-10.1); CREATININE 1.7 mg/dL (0.70-1.30)
[2020-03-12 22:01] LABS: CARBON DIOXIDE 7.4 mmol/L (21-32)
[2020-03-13] MEDS: DILAUDID INJ IVP PRN ×6 (00:30→21:19)
[2020-03-13 03:55] LABS: ABG BASE EXCESS -17.9 mmol/L (-2.0-2.0)
[2020-03-13 03:57] LABS: ABG HCO3 6.4 mmol/L (22-26)
[2020-03-13] MEDS: SODIUM BICARBONATE IV SCH ×4 (05:10→09:18)
[2020-03-13] MEDS: D5W IV SCH ×4 (05:10→09:18)
[2020-03-13 06:45] LABS: ALANINE AMINOTRANSFERASE 16 Units/L (12-78); ALBUMIN 3.8 g/dL (3.4-5.0); ALKALINE PHOSPHATASE 85 Units/L (46-116); ASPARTATE AMINO TRANSFERASE 27 Units/L (15-37); BLOOD UREA NITROGEN 14 mg/dL (7-18); CHLORIDE 112 mmol/L (98-107); COR NA(FOR HYPERGLY) 148 mmol/L (136-145); CREATININE 1.33 mg/dL (0.70-1.30); SODIUM 147 mmol/L (136-145); eGFR NON BLACK RACES > 60 (>60)
[2020-03-13 06:49] LABS: CARBON DIOXIDE 6.6 mmol/L (21-32)
[2020-03-13 07:26] LABS: BASOPHILS % (AUTO) 0.1 % (0.2-1.0); HEMATOCRIT 39.3 % (42.0-54.0); LYMPHOCYTES # (AUTO) 2.9 X10^3/uL (1.3-2.9); LYMPHOCYTES % (AUTO) 10.5 % (21.0-51.0); MEAN CORPUSCULAR HEMOGLOBIN 28.4 pg (27.0-34.0); MEAN CORPUSCULAR HGB CONC 33.1 g/dL (33.0-35.0); MEAN CORPUSCULAR VOLUME 85.9 fL (80.0-100.0); MEAN PLATELET VOLUME 7.9 fL (7.4-11.0); MONOCYTES # (AUTO) 2.8 x10^3/uL (0.3-0.8); MONOCYTES % (AUTO) 10.2 % (0.0-13.0); NEUTROPHILS # (AUTO) 21.6 x10^3/uL (2.2-4.8); NEUTROPHILS % (AUTO) 79.2 % (42.0-75.0); PLATELET COUNT 261 X10^3/uL (150.0-450.0); RED BLOOD COUNT 4.58 X10^6/uL (4.7-6.0); RED CELL DISTRIBUTION WIDTH 14.1 % (11.6-16.5); WHITE BLOOD COUNT 27.2 X10^3/uL (3.6-10.0)
[2020-03-13 07:51] LABS: BAND NEUTROPHILS % 2 % (0-10); PLATELET MORPHOLOGY COMMENT NORMAL (NORMAL)
[2020-03-13] MEDS: PHENERGAN INJ 25 MG IM PRN ×2 (08:18→20:35)
[2020-03-13] MEDS ORDERED: MYXREDLIN 100 UNIT/100 ML BAG 100 UNIT/100 ML PLAST..BAG IV ONE (08:20)
[2020-03-13] MEDS: ATIVAN INJ 2 MG VIAL IVP SCH ×2 (08:30→21:00)
[2020-03-13 10:35] LABS: ABG BASE EXCESS -5.1 mmol/L (-2.0-2.0); ABG HCO3 17.1 mmol/L (22-26)
--- NOTE | 2020-03-13 12:40 | PCM.PROG ---
Progress Note Progress Note for Day of Date of Exam: 03/13/20 Subjective Subjective: Pt is a 39 y/o male pmhx DMT1, Opioid dependence, HTN, admitted for DKA with severe metabolic acidosis. Pt does show some improvement this morning compared to yesterday. He is no longer tachypnic but does still have a lot of nausea and vomiting. He continues to complain about chronic pain. Labs/imaging: Wbc 27, Hgb 13, Plt 261, Na 147, K 4.1, HCO3 6.6, Cr 1.33, Glucose 154, ABG: pH 7.46/24/79/17/96% on RA. Hospital course includes: Insulin gtt, DKA protocol. Dilaudid 1mg q4h prn, Ativan 1mg BID, Phenergan prn. Pt was placed on continues regular insulin infusion at 10 units/hr while also checking FSBG q1h, adjusting D5W IVF to close anion gap, which was achieved. Plan to stop insulin gtt, his last BMP showed hypokalemia, change IVF to D5W with KCl. Pt still unable to tolerate po intake, will start CLD and SSI. He remains in the ICU for close monitoring, follow up serial BMP and labs/imaging. TIME SPENT ON CLINICAL ASSESSMENT, REVIEWING LABS AND IMAGING, DECISION MAKING, AND DOCUMENTATION GREATER THAN 75 MINUTES. Past Medical Family Social History Past Med/Fam/Surg Hx: No changes since H&P Allergies: Allergies No Known Drug Allergies Allergy (Verified 11/03/18 01:58) Review of Systems ROS: No change since H&P Vital Signs and I&O's Vital Signs: Temperature 98.5 F Pulse Rate [Apical] 125 Pulse Rate 129 Respiratory Rate 20 Blood Pressure [Left Arm] 133/84 Blood Pressure [Right Arm] 132/81 Blood Pressure 138/84 O2 Sat by Pulse Oximetry 98 Intake and Output: Intake & Output 03/10/20 03/11/20 03/12/20 03/13/20 23:59 23:59 23:59 23:59 Intake Total 1974 945 / 945 Output Total 3775 / 3775 800 / 800 Balance -1800 / -1800 145 / 145 Physical Exam Oriented: Normal Eyes: Normal Ear: Normal Nose: Normal Throat: Normal Respiratory: Normal Cardiovascular: Tachycardia : Normal Auscultation: Bowel Sounds: Normal Tenderness: Epigastric and Mild Skin: Normal Musculoskeletal: Normal Psychiatric: Anxiety Mood Description: Anxious Affect: Anxious Speech Pattern: Clear and Appropriate Laboratory and Diagnostics Result Diagrams: 03/13/20 07:08 03/13/20 19:18 Labs: Laboratory WBC 27.2 X10^3/uL (3.6-10.0) H D 03/13/20 07:08 RBC 4.58 X10^6/uL (4.7-6.0) L 03/13/20 07:08 Hgb 13.0 g/dL (13.5-18.0) L D 03/13/20 07:08 Hct 39.3 % (42.0-54.0) L 03/13/20 07:08 MCV 85.9 fL (80.0-100.0) 03/13/20 07:08 MCH 28.4 pg (27.0-34.0) 03/13/20 07:08 MCHC 33.1 g/dL (33.0-35.0) 03/13/20 07:08 RDW 14.1 % (11.6-16.5) 03/13/20 07:08 Plt Count 261 X10^3/uL (150.0-450.0) 03/13/20 07:08 Plt Count Comment Adequate (ADEQUATE) 03/13/20 07:08 MPV 7.9 fL (7.4-11.0) 03/13/20 07:08 Neut % (Auto) 79.2 % (42.0-75.0) H 03/13/20 07:08 Lymph % (Auto) 10.5 % (21.0-51.0) L 03/13/20 07:08 [place] % (Auto) 10.2 % (0.0-13.0) 03/13/20 07:08 Eos % (Auto) 0.0 % (0.9-2.9) L 03/13/20 07:08 Baso % (Auto) 0.1 % (0.2-1.0) L 03/13/20 07:08 Neut # (Auto) 21.6 x10^3/uL (2.2-4.8) H 03/13/20 07:08 Lymph # (Auto) 2.9 X10^3/uL (1.3-2.9) 03/13/20 07:08 [place] # (Auto) 2.8 x10^3/uL (0.3-0.8) H 03/13/20 07:08 Eos # (Auto) 0.0 x10^3/uL (0.0-0.2) 03/13/20 07:08 Baso # (Auto) 0.0 X10^3/uL (0.0-0.1) 03/13/20 07:08 Absolute Nucleated RBC 0.0 /100WBC 03/13/20 07:08 Total Counted 100 03/13/20 07:08 Neutrophils % (Manual) 80 % (39-76) H 03/13/20 07:08 Band Neutrophils % 2 % (0-10) 03/13/20 07:08 Lymphocytes % (Manual) 12 % (13-43) L 03/13/20 07:08 Monocytes % (Manual) 6 % (4-9) 03/13/20 07:08 Plt Morphology Comment Normal (NORMAL) 03/13/20 07:08 RBC Morphology Normal (NORMAL) 03/13/20 07:08 Sample Site [facility] 03/13/20 10:27 ABG pH 7.460 (7.35-7.45) H 03/13/20 10:27 ABG pCO2 24.0 mmHg (35.0-45.0) L 03/13/20 10:27 ABG pO2 79.0 mmHg (80.0-100.0) L 03/13/20 10:27 ABG HCO3 17.1 mmol/L (22-26) L* 03/13/20 10:27 ABG O2 Saturation 96.0 % (90-100) 03/13/20 10:27 ABG Base Excess -5.1 mmol/L (-2.0-2.0) L 03/13/20 10:27 Geoff Test N/a 03/13/20 10:27 A-a Gradient 41.0 mmHg 03/13/20 10:27 FiO2 21.0 03/13/20 10:27 Blood Gas Comments Pt reece well elj 03/13/20 10:27 Sodium 147 mmol/L (136-145) H 03/13/20 04:40 Corrected Sodium 148 mmol/L (136-145) H 03/13/20 04:40 Potassium 4.1 mmol/L (3.5-5.1) 03/13/20 04:40 Chloride 112 mmol/L (98-107) H 03/13/20 04:40 Carbon Dioxide 6.6 mmol/L (21-32) L* 03/13/20 04:40 BUN 14 mg/dL (7-18) 03/13/20 04:40 Creatinine 1.33 mg/dL (0.70-1.30) H 03/13/20 04:40 Est GFR (MDRD) Af Amer > 60 (>60) 03/13/20 04:40 Est GFR (MDRD) Non-Af > 60 (>60) 03/13/20 04:40 Glucose 154 mg/dL (65-99) H 03/13/20 04:40 POC Glucose (mg/dL) 80 mg/dL (65-99) 03/13/20 12:15 Hemoglobin A1c 10.3 % 03/12/20 04:20 Lactic Acid 1.3 mmol/L (0.4-2.0) 03/12/20 05:20 Calcium 10.0 mg/dL (8.5-10.1) 03/13/20 04:40 Corrected Calcium TNP 03/13/20 04:40 Total Bilirubin 0.60 mg/dL (0.2-1.0) 03/13/20 04:40 AST 27 Units/L (15-37) 03/13/20 04:40 ALT 16 Units/L (12-78) 03/13/20 04:40 Alkaline Phosphatase 85 Units/L (46-116) 03/13/20 04:40 Creatine Kinase 73 Units/L (39-308) 03/12/20 09:20 CK-MB (CK-2) 4.0 ng/mL (0-4.0) 03/12/20 09:20 CK/CKMB % Calc 5.5 % (<4) 03/12/20 09:20 Troponin I < 0.02 ng/mL (0-1.5) 03/12/20 09:20 Total Protein 8.0 g/dL (6.4-8.2) 03/13/20 04:40 Albumin 3.8 g/dL (3.4-5.0) 03/13/20 04:40 Globulin 4.2 g/dL (2.5-4.5) 03/13/20 04:40 Albumin/Globulin Ratio 0.9 Ratio (1.1-2.1) L 03/13/20 04:40 Specimen Type Catherized urine 03/12/20 10:10 Urine Color Yellow (YELLOW) 03/12/20 10:10 Urine Appearance Clear (CLEAR) 03/12/20 10:10 Urine pH 5.0 (5.0 - 8.0) 03/12/20 10:10 Ur Specific [place] 1.020 (1.000-1.030) 03/12/20 10:10 Urine Protein 2+ (NEGATIVE) 03/12/20 10:10 Urine Glucose (UA) 4+ (NEGATIVE) 03/12/20 10:10 Urine Ketones 4+ (NEGATIVE) 03/12/20 10:10 Urine Occult Blood 1+ (NEGATIVE) 03/12/20 10:10 Urine Nitrite Negative (NEGATIVE) 03/12/20 10:10 Urine Bilirubin Negative (NEGATIVE) 03/12/20 10:10 Urine Urobilinogen Normal (NORMAL) 03/12/20 10:10 Ur Leukocyte Esterase Negative (NEGATIVE) 03/12/20 10:10 Urine RBC None seen /HPF (0-3) 03/12/20 10:10 Urine WBC None seen /HPF (0-5) 03/12/20 10:10 Ur Squamous Epith Cells Negative /HPF (NEGATIVE) 03/12/20 10:10 Urine Bacteria Negative /HPF (NEGATIVE) 03/12/20 10:10 Ur Culture Indicated? No/not indicated 03/12/20 10:10 Urine Opiates Screen Negative (NEG=<300) 03/12/20 04:59 Urine Methadone Screen Positive (NEG=<300) 03/12/20 04:59 Ur Barbiturates Screen Negative (NEG=<200) 03/12/20 04:59 Ur Phencyclidine Scrn Negative (NEG=<25) 03/12/20 04:59 Ur Amphetamines Screen Negative (NEG=<1000) 03/12/20 04:59 U Benzodiazepines Scrn Positive (NEG=<200) 03/12/20 04:59 Urine Cocaine Screen Negative (NEG=<300) 03/12/20 04:59 U Marijuana (THC) Screen Negative (NEG=<50) 03/12/20 04:59 Acetone, Semi-Quant Moderate (NEGATIVE) H 03/12/20 11:58 SARS-CoV-2 (PCR) Negative (NEGATIVE) 03/12/20 07:29 Plan (1) DKA, type 1: Status: Acute Qualifiers: Diabetes mellitus complication detail: without coma Qualified Code(s): E10.10 - Type 1 diabetes mellitus with ketoacidosis without coma Plan: DKA protocol, close monitoring, serial BMPs, FSBG Q2H Insulin gtt, IVF with bicarbonate Monitor vitals (2) Metabolic acidosis due to diabetes mellitus: Status: Acute (3) Opioid dependence: Status: Acute Qualifiers: Substance use status: with unspecified opioid-induced disorder Qualified Code(s): F11.29 - Opioid dependence with unspecified opioid-induced disorder
[2020-03-13 12:53] LABS: BLOOD UREA NITROGEN 11 mg/dL (7-18); CALCIUM 10.2 mg/dL (8.5-10.1); CARBON DIOXIDE 22.3 mmol/L (21-32); CHLORIDE 108 mmol/L (98-107); CREATININE 1.36 mg/dL (0.70-1.30); SODIUM 146 mmol/L (136-145); eGFR NON BLACK RACES > 60 (>60)
[2020-03-13] MEDS: HumuLIN R SUBCUT PRN ×3 (14:28→18:40)
[2020-03-13] MEDS: D5W 1000 ML IV 1,000 ML with POTASSIUM CHLORIDE INJ 40 MEQ VIAL 40 MEQ IV SCH ×4 (14:35→23:03)
[2020-03-13] MEDS: SNACK - Diabetic Appropriate PO SCH ×2 (19:28→19:29)
[2020-03-13 19:55] LABS: BLOOD UREA NITROGEN 9 mg/dL (7-18); CALCIUM 10.7 mg/dL (8.5-10.1); CARBON DIOXIDE 20.3 mmol/L (21-32); CHLORIDE 102 mmol/L (98-107); COR NA(FOR HYPERGLY) 147 mmol/L (136-145); CREATININE 1.35 mg/dL (0.70-1.30); SODIUM 142 mmol/L (136-145); eGFR NON BLACK RACES > 60 (>60)
[2020-03-13] MEDS: CHLORASEPTIC SPRAY MT PRN (21:36)
[2020-03-13] MEDS ORDERED: LOPRESSOR INJ 5 MG AMP IVP ONE (22:38)
[2020-03-13] MEDS ORDERED: LOPRESSOR INJ 5 MG AMP ONE (22:45)
[2020-03-14] MEDS: DILAUDID INJ IVP PRN ×5 (01:02→18:31)
[2020-03-14] MEDS: APRESOLINE INJ 20 MG VIAL IVP PRN ×3 (01:03→18:32)
[2020-03-14] MEDS: D5W 1000 ML IV 1,000 ML with POTASSIUM CHLORIDE INJ 40 MEQ VIAL 40 MEQ IV SCH ×6 (03:30→08:24)
[2020-03-14] MEDS: HumuLIN R SUBCUT PRN ×6 (04:15→21:31)
[2020-03-14] MEDS: PHENERGAN INJ 25 MG IM PRN (04:16)
[2020-03-14 05:26] LABS: BASOPHILS % (AUTO) 0.2 % (0.2-1.0); HEMATOCRIT 41.3 % (42.0-54.0); HEMOGLOBIN 13.9 g/dL (13.5-18.0); LYMPHOCYTES # (AUTO) 1.6 X10^3/uL (1.3-2.9); LYMPHOCYTES % (AUTO) 8.5 % (21.0-51.0); MEAN CORPUSCULAR HEMOGLOBIN 28.5 pg (27.0-34.0); MEAN CORPUSCULAR HGB CONC 33.6 g/dL (33.0-35.0); MEAN CORPUSCULAR VOLUME 84.9 fL (80.0-100.0); MEAN PLATELET VOLUME 8.4 fL (7.4-11.0); MONOCYTES # (AUTO) 1.5 x10^3/uL (0.3-0.8); MONOCYTES % (AUTO) 7.9 % (0.0-13.0); NEUTROPHILS # (AUTO) 15.9 x10^3/uL (2.2-4.8); NEUTROPHILS % (AUTO) 83.4 % (42.0-75.0); PLATELET COUNT 253 X10^3/uL (150.0-450.0); RED BLOOD COUNT 4.86 X10^6/uL (4.7-6.0); RED CELL DISTRIBUTION WIDTH 14.5 % (11.6-16.5); WHITE BLOOD COUNT 19.1 X10^3/uL (3.6-10.0)
[2020-03-14 05:32] LABS: ABG BASE EXCESS -3.1 mmol/L (-2.0-2.0)
[2020-03-14 05:33] LABS: ABG ALLEN TEST POS
[2020-03-14 05:35] LABS: ALANINE AMINOTRANSFERASE 13 Units/L (12-78); ALBUMIN 3.6 g/dL (3.4-5.0); ALKALINE PHOSPHATASE 107 Units/L (46-116); ASPARTATE AMINO TRANSFERASE 17 Units/L (15-37); BLOOD UREA NITROGEN 7 mg/dL (7-18); CALCIUM 10.1 mg/dL (8.5-10.1); CARBON DIOXIDE 19.8 mmol/L (21-32); CHLORIDE 100 mmol/L (98-107); COR NA(FOR HYPERGLY) 146 mmol/L (136-145); CREATININE 1.25 mg/dL (0.70-1.30); SODIUM 139 mmol/L (136-145); eGFR NON BLACK RACES > 60 (>60)
[2020-03-14] MEDS: ATIVAN INJ 2 MG VIAL IVP SCH ×2 (08:23→21:29)
[2020-03-14] MEDS ORDERED: MAGNESIUM SULFATE 1 GRAM/100 mL PREMIX 1 G/100 ML BAG IV ONE (10:00)
[2020-03-14] MEDS ORDERED: PEPCID 20 MG IV PREMIX* 20 MG/50 ML BAG IV ONE (10:02)
--- NOTE | 2020-03-14 10:36 | RAD ---
HISTORYPain [id number] is fecal distention of the rectum. There is no evidence for ileus or bowel obstruction. No mass formation or visceral enlargement or abnormal calcif ication seen.IMPRESSIONIncreased stool in the rectosigmoid consistent with constipation.Electronicall y signed by: CARLOS LEO (Mar 14, 2020 10:34:27)
[2020-03-14 10:47] LABS: SERUM ACETONE SMALL (NEGATIVE)
[2020-03-14] MEDS: PROTONIX INJ 40 MG VIAL IVP SCH ×2 (11:19→21:30)
[2020-03-14] MEDS: ROCEPHIN VIAL 1 GRAM 1 G in NS 100 ML IV + SPIKE MINIBAG* 100 ML IV SCH (11:19)
[2020-03-14] MEDS ORDERED: ZITHROMAX INJ 500 MG VIAL 500 MG in NS 250 ML IV 250 ML IV SCH (13:00)
[2020-03-14] MEDS: LOPRESSOR INJ 5 MG AMP IVP SCH ×2 (13:47→20:50)
[2020-03-14] MEDS: NS 1/2 + KCL 20 MEQ/L 1,000 ML IV SCH (13:47)
[2020-03-14] MEDS: MAGNESIUM SULFATE 1 GRAM/100 mL PREMIX 1 GM/100 ML BAG IV PRN ×3 (13:48→20:13)
[2020-03-14 17:54] LABS: ALANINE AMINOTRANSFERASE 13 Units/L (12-78); ALBUMIN 3.3 g/dL (3.4-5.0); ALKALINE PHOSPHATASE 109 Units/L (46-116); ASPARTATE AMINO TRANSFERASE 12 Units/L (15-37); BLOOD UREA NITROGEN 6 mg/dL (7-18); CALCIUM 9.5 mg/dL (8.5-10.1); CHLORIDE 105 mmol/L (98-107); COR CA(FOR HYPOALB) 10.1 mg/dL (8.5-10.1); COR NA(FOR HYPERGLY) 146 mmol/L (136-145); CREATININE 1.07 mg/dL (0.70-1.30); SODIUM 142 mmol/L (136-145); TOTAL PROTEIN 7.6 g/dL (6.4-8.2); eGFR NON BLACK RACES > 60 (>60)
[2020-03-14] MEDS ORDERED: K-RIDER 10 MEQ/NS 100 ML 40 MEQ/400 ML BAG IV ONE (18:15)
[2020-03-14] MEDS ORDERED: MAGNESIUM SULFATE 1 GRAM/100 mL PREMIX 2 G/200 ML BAG IV ONE (18:15)
[2020-03-14] MEDS: SNACK - Diabetic Appropriate PO SCH (20:12)
[2020-03-14] MEDS: ZESTRIL TAB 10 MG PO SCH (21:30)
[2020-03-14] MEDS ORDERED: MICRO K EXTEN CAP 10 MEQ PO PRN (22:41)
[2020-03-14] MEDS ORDERED: POTASSIUM CHLORIDE LIQ 20 MEQ UDC PO PRN (22:41)
[2020-03-14] MEDS ORDERED: K-DUR TAB 20 MEQ PO PRN (22:41)
[2020-03-14] MEDS ORDERED: KLOR-CON PO PRN (22:41)
[2020-03-14] MEDS ORDERED: POTASSIUM CHL 60 MEQ/NS 0.45% 500 ML IV PRN (22:41)
[2020-03-14] MEDS ORDERED: POTASSIUM CHL 40 MEQ/NS 0.45% 500 ML IV PRN (22:41)
[2020-03-14] MEDS ORDERED: NS 500 ML IV 500 ML IV PRN (22:45)
[2020-03-14] MEDS ORDERED: NS 500 ML IV 500 ML IV ONE (22:46)
[2020-03-14] MEDS: K-RIDER 10 MEQ/NS 100 ML 10 MEQ/100 ML BAG IV PRN ×2 (22:53→23:45)
[2020-03-15] MEDS: HumuLIN R SUBCUT PRN ×6 (00:09→21:00)
[2020-03-15] MEDS: K-RIDER 10 MEQ/NS 100 ML 10 MEQ/100 ML BAG IV PRN ×2 (01:11→09:24)
[2020-03-15] MEDS: DILAUDID INJ IVP PRN ×5 (01:55→21:20)
[2020-03-15] MEDS: NS 1/2 + KCL 20 MEQ/L 1,000 ML IV SCH ×3 (04:09→18:14)
[2020-03-15 04:53] LABS: BASOPHILS % (AUTO) 0 % (0.2-1.0); HEMOGLOBIN 13.3 g/dL (13.5-18.0); LYMPHOCYTES # (AUTO) 2.8 X10^3/uL (1.3-2.9); LYMPHOCYTES % (AUTO) 18.5 % (21.0-51.0); MEAN CORPUSCULAR HEMOGLOBIN 28.5 pg (27.0-34.0); MEAN CORPUSCULAR HGB CONC 34.1 g/dL (33.0-35.0); MEAN CORPUSCULAR VOLUME 83.5 fL (80.0-100.0); MEAN PLATELET VOLUME 8.3 fL (7.4-11.0); MONOCYTES # (AUTO) 1.3 x10^3/uL (0.3-0.8); MONOCYTES % (AUTO) 8.5 % (0.0-13.0); NEUTROPHILS # (AUTO) 11.2 x10^3/uL (2.2-4.8); PLATELET COUNT 228 X10^3/uL (150.0-450.0); RED BLOOD COUNT 4.66 X10^6/uL (4.7-6.0); RED CELL DISTRIBUTION WIDTH 14.2 % (11.6-16.5); WHITE BLOOD COUNT 15.3 X10^3/uL (3.6-10.0)
[2020-03-15 05:01] LABS: ALANINE AMINOTRANSFERASE 11 Units/L (12-78); ALBUMIN 3.1 g/dL (3.4-5.0); ALKALINE PHOSPHATASE 100 Units/L (46-116); ASPARTATE AMINO TRANSFERASE 11 Units/L (15-37); BLOOD UREA NITROGEN 7 mg/dL (7-18); CALCIUM 8.9 mg/dL (8.5-10.1); CARBON DIOXIDE 27.2 mmol/L (21-32); CHLORIDE 104 mmol/L (98-107); COR CA(FOR HYPOALB) 9.6 mg/dL (8.5-10.1); COR NA(FOR HYPERGLY) 143 mmol/L (136-145); CREATININE 0.94 mg/dL (0.70-1.30); MAGNESIUM 1.9 mg/dL (1.7-2.9); SODIUM 140 mmol/L (136-145); eGFR NON BLACK RACES > 60 (>60)
[2020-03-15 05:16] LABS: ABG BASE EXCESS 4.3 mmol/L (-2.0-2.0); ABG HCO3 26.2 mmol/L (22-26)
[2020-03-15 05:17] LABS: ABG ALLEN TEST POS
[2020-03-15] MEDS: ATIVAN INJ 2 MG VIAL IVP SCH ×2 (09:23→21:19)
[2020-03-15] MEDS: ROCEPHIN VIAL 1 GRAM 1 G in NS 100 ML IV + SPIKE MINIBAG* 100 ML IV SCH (09:24)
[2020-03-15] MEDS: LOPRESSOR INJ 5 MG AMP IVP SCH ×2 (09:24→21:19)
[2020-03-15] MEDS: PROTONIX INJ 40 MG VIAL IVP SCH ×2 (09:24→21:20)
[2020-03-15] MEDS: MAGNESIUM SULFATE 1 GRAM/100 mL PREMIX 1 GM/100 ML BAG IV PRN ×2 (09:53→12:32)
[2020-03-15] MEDS ORDERED: DULCOLAX SUPPOSITORY 10 MG RECTAL ONE (10:49)
[2020-03-15] MEDS: ZITHROMAX INJ 500 MG VIAL 500 MG in NS 250 ML IV 250 ML IV SCH (12:30)
[2020-03-15] MEDS ORDERED: DULCOLAX SUPPOSITORY 10 MG ONE (13:41)
[2020-03-15] MEDS: PHENERGAN INJ 25 MG IM PRN ×2 (13:58→23:11)
[2020-03-15] MEDS ORDERED: DULCOLAX SUPPOSITORY 10 MG RECTAL PRN (13:59)
[2020-03-15] MEDS: SNACK - Diabetic Appropriate PO SCH (19:45)
[2020-03-15] MEDS: ZESTRIL TAB 10 MG PO SCH (21:20)
[2020-03-15] MEDS: CHLORASEPTIC SPRAY MT PRN (21:20)
[2020-03-16] MEDS: DILAUDID INJ IVP PRN ×3 (02:00→10:15)
[2020-03-16] MEDS: HumuLIN R SUBCUT PRN ×2 (04:13→12:48)
[2020-03-16] MEDS: NS 1/2 + KCL 20 MEQ/L 1,000 ML IV SCH ×2 (04:47→07:30)
[2020-03-16 05:19] LABS: BASOPHILS % (AUTO) 0.2 % (0.2-1.0); EOSINOPHILS % (AUTO) 0.2 % (0.9-2.9); HEMATOCRIT 33.9 % (42.0-54.0); HEMOGLOBIN 11.4 g/dL (13.5-18.0); LYMPHOCYTES # (AUTO) 3.5 X10^3/uL (1.3-2.9); LYMPHOCYTES % (AUTO) 25.5 % (21.0-51.0); MEAN CORPUSCULAR HEMOGLOBIN 28.4 pg (27.0-34.0); MEAN CORPUSCULAR HGB CONC 33.7 g/dL (33.0-35.0); MEAN CORPUSCULAR VOLUME 84.3 fL (80.0-100.0); MEAN PLATELET VOLUME 8.6 fL (7.4-11.0); MONOCYTES # (AUTO) 0.9 x10^3/uL (0.3-0.8); MONOCYTES % (AUTO) 6.7 % (0.0-13.0); NEUTROPHILS # (AUTO) 9.3 x10^3/uL (2.2-4.8); NEUTROPHILS % (AUTO) 67.4 % (42.0-75.0); PLATELET COUNT 217 X10^3/uL (150.0-450.0); RED BLOOD COUNT 4.02 X10^6/uL (4.7-6.0); RED CELL DISTRIBUTION WIDTH 14.2 % (11.6-16.5); WHITE BLOOD COUNT 13.7 X10^3/uL (3.6-10.0)
[2020-03-16 05:24] LABS: ALANINE AMINOTRANSFERASE 9 Units/L (12-78); ALBUMIN 2.8 g/dL (3.4-5.0); ALKALINE PHOSPHATASE 89 Units/L (46-116); ASPARTATE AMINO TRANSFERASE 11 Units/L (15-37); BLOOD UREA NITROGEN 5 mg/dL (7-18); CALCIUM 8.4 mg/dL (8.5-10.1); CARBON DIOXIDE 26.9 mmol/L (21-32); CHLORIDE 103 mmol/L (98-107); COR CA(FOR HYPOALB) 9.4 mg/dL (8.5-10.1); COR NA(FOR HYPERGLY) 143 mmol/L (136-145); CREATININE 0.65 mg/dL (0.70-1.30); MAGNESIUM 1.8 mg/dL (1.7-2.9); SODIUM 139 mmol/L (136-145); TOTAL PROTEIN 6.2 g/dL (6.4-8.2); eGFR NON BLACK RACES > 60 (>60)
[2020-03-16 05:45] LABS: ABG ALLEN TEST POS; ABG BASE EXCESS 5.7 mmol/L (-2.0-2.0); ABG HCO3 28.4 mmol/L (22-26)
[2020-03-16] MEDS: K-RIDER 10 MEQ/NS 100 ML 10 MEQ/100 ML BAG IV PRN (06:00)
[2020-03-16] MEDS: ATIVAN INJ 2 MG VIAL IVP SCH (08:30)
[2020-03-16] MEDS: LOPRESSOR INJ 5 MG AMP IVP SCH (08:35)
[2020-03-16] MEDS: ZITHROMAX INJ 500 MG VIAL 500 MG in NS 250 ML IV 250 ML IV SCH (08:48)
[2020-03-16] MEDS: PROTONIX INJ 40 MG VIAL IVP SCH (08:48)
[2020-03-16] MEDS: APRESOLINE INJ 20 MG VIAL IVP PRN (11:27)
--- NOTE | 2020-03-16 12:21 | W.DIS.FURT ---
Summary of Discharge Discharge Summary of Date Date of Exam: 03/16/20 Admission Date Date of Admission: 03/12/20 Admission Diagnosis Patient Problems (Updated 03/12/20 @ 15:13 by Corky Tamez) Metabolic acidosis due to diabetes mellitus (Acute) E11.69, E87.2 Leukocytosis (Acute) D72.829 Type 1 diabetes mellitus (Acute) E10.9 Metabolic acidosis (Acute) E87.2 Low back pain (Chronic) M54.5 Hospital Course: Pt is a 39 y/o male pmhx DMT1, Opioid dependence, HTN, admitted for DKA with severe metabolic acidosis. Hospital course included DKA protocol that included insulin gtt, IVF, frequent FSBG and BMPs, along with pain and nausea control. Metabolic acidosis resolved with close of anion gap. Labs: Wbc 13.7, Hgb 11.4, Plt 217, Na 139, K 4.3, Cr 0.65, Glucose 247. Pt did admit that when he has opio id withdrawal symptoms, he does not eat and therefore does not take insulin. Pt was instructed to eat meals and take his insulin as prescribed along with sliding scale. Pt was discharged in stable condition. Vital Signs: Vital Signs (72 hours) 03/13/20 12:30 03/13/20 12:45 03/13/20 13:00 Temperature Pulse Rate 135 H 134 H 135 H Respiratory Rate 22 20 23 Blood Pressure 139/82 O2 Sat by Pulse Oximetry 98 98 98 03/13/20 13:13 03/13/20 13:15 03/13/20 13:16 Temperature Pulse Rate 132 H 142 H Respiratory Rate 17 23 18 Blood Pressure 130/84 O2 Sat by Pulse Oximetry 99 99 03/13/20 13:30 03/13/20 13:45 03/13/20 13:46 Temperature Pulse Rate 134 H 133 H Respiratory Rate 21 20 20 Blood Pressure 136/84 O2 Sat by Pulse Oximetry 98 98 03/13/20 14:00 03/13/20 14:15 03/13/20 14:30 Temperature Pulse Rate 129 H 129 H 128 H Respiratory Rate 19 20 19 Blood Pressure 146/84 147/87 O2 Sat by Pulse Oximetry 98 98 97 03/13/20 14:45 03/13/20 15:00 03/13/20 15:15 Temperature Pulse Rate 124 H 129 H 125 H Respiratory Rate 38 H 31 H 21 Blood Pressure 136/80 O2 Sat by Pulse Oximetry 99 97 99 03/13/20 15:30 03/13/20 15:45 03/13/20 16:00 Temperature Pulse Rate 129 H 128 H Respiratory Rate 17 16 Blood Pressure 144/89 136/85 O2 Sat by Pulse Oximetry 99 99 03/13/20 16:15 03/13/20 16:30 03/13/20 16:45 Temperature Pulse Rate 129 H 133 H 128 H Respiratory Rate 20 18 18 Blood Pressure 134/87 O2 Sat by Pulse Oximetry 100 98 99 03/13/20 17:00 03/13/20 17:05 03/13/20 17:15 Temperature Pulse Rate 135 H 128 H Respiratory Rate 21 18 21 Blood Pressure 121/80 O2 Sat by Pulse Oximetry 96 97 03/13/20 17:30 03/13/20 17:35 03/13/20 17:45 Temperature Pulse Rate 127 H 131 H Respiratory Rate 18 18 21 Blood Pressure 137/87 O2 Sat by Pulse Oximetry 98 98 03/13/20 18:00 03/13/20 18:15 03/13/20 18:30 Temperature Pulse Rate 127 H 130 H 131 H Respiratory Rate 18 19 17 Blood Pressure 134/79 O2 Sat by Pulse Oximetry 98 99 97 03/13/20 18:45 03/13/20 18:54 03/13/20 19:00 Temperature Pulse Rate 130 H 128 H 131 H Respiratory Rate 17 17 17 Blood Pressure 151/91 146/96 O2 Sat by Pulse Oximetry 99 98 97 03/13/20 20:00 03/13/20 21:00 03/13/20 21:19 Temperature Pulse Rate 134 H 142 H Respiratory Rate 27 H 16 20 Blood Pressure 163/99 171/99 O2 Sat by Pulse Oximetry 98 98 03/13/20 21:49 03/13/20 22:00 03/13/20 23:00 Temperature Pulse Rate 140 H 140 H Respiratory Rate 17 19 17 Blood Pressure 165/102 171/106 O2 Sat by Pulse Oximetry 97 98 03/13/20 23:04 03/13/20 23:25 03/14/20 00:00 Temperature 98.4 F Pulse Rate 117 H Respiratory Rate 18 Blood Pressure 171/99 144/93 168/113 O2 Sat by Pulse Oximetry 99 03/14/20 01:00 03/14/20 01:02 03/14/20 01:19 Temperature Pulse Rate 121 H Respiratory Rate 23 19 Blood Pressure 150/102 147/95 O2 Sat by Pulse Oximetry 98 03/14/20 01:32 03/14/20 02:00 03/14/20 03:00 Temperature Pulse Rate 135 H 131 H Respiratory Rate 18 19 20 Blood Pressure 144/102 150/107 O2 Sat by Pulse Oximetry 96 98 03/14/20 04:00 03/14/20 05:00 03/14/20 05:15 Temperature Pulse Rate 130 H 144 H Respiratory Rate 19 18 20 Blood Pressure 149/103 144/104 O2 Sat by Pulse Oximetry 99 97 03/14/20 05:45 03/14/20 06:00 03/14/20 07:00 Temperature Pulse Rate 149 H 150 H Respiratory Rate 20 20 20 Blood Pressure 153/107 156/98 O2 Sat by Pulse Oximetry 97 97 03/14/20 08:00 03/14/20 09:00 03/14/20 09:19 Temperature 97.9 F Pulse Rate 150 H 151 H Respiratory Rate 21 22 26 H Blood Pressure 146/100 155/101 O2 Sat by Pulse Oximetry 95 96 03/14/20 09:49 03/14/20 10:00 03/14/20 11:00 Temperature Pulse Rate 155 H 155 H Respiratory Rate 20 20 22 Blood Pressure 144/95 152/104 O2 Sat by Pulse Oximetry 98 96 03/14/20 12:00 03/14/20 13:00 03/14/20 13:47 Temperature 97.7 F Pulse Rate 156 H 155 H Respiratory Rate 21 30 H Blood Pressure 149/108 133/95 133/95 O2 Sat by Pulse Oximetry 97 95 03/14/20 13:49 03/14/20 14:00 03/14/20 14:19 Temperature Pulse Rate 126 H Respiratory Rate 20 20 16 Blood Pressure 130/98 O2 Sat by Pulse Oximetry 97 03/14/20 15:00 03/14/20 16:00 03/14/20 17:00 Temperature 98.0 F Pulse Rate 126 H 135 H 135 H Respiratory Rate 16 15 18 Blood Pressure 150/104 152/105 143/102 O2 Sat by Pulse Oximetry 97 97 95 03/14/20 18:31 03/14/20 19:00 03/14/20 19:01 Temperature Pulse Rate 139 H Respiratory Rate 19 25 H 21 Blood Pressure 128/86 O2 Sat by Pulse Oximetry 96 03/14/20 20:00 03/14/20 20:50 03/14/20 21:00 Temperature Pulse Rate 145 H 143 H Respiratory Rate 19 19 Blood Pressure 131/82 131/82 130/82 O2 Sat by Pulse Oximetry 94 L 95 03/14/20 22:00 03/14/20 23:00 03/15/20 00:00 Temperature 98.7 F Pulse Rate 128 H 126 H 128 H Respiratory Rate 24 21 20 Blood Pressure 140/97 138/96 138/93 O2 Sat by Pulse Oximetry 95 96 97 03/15/20 01:00 03/15/20 01:55 03/15/20 02:00 Temperature Pulse Rate 129 H 130 H Respiratory Rate 25 H 21 18 Blood Pressure 140/106 141/97 O2 Sat by Pulse Oximetry 97 97 03/15/20 02:25 03/15/20 03:00 03/15/20 04:00 Temperature Pulse Rate 127 H 125 H Respiratory Rate 20 20 21 Blood Pressure 130/99 123/85 O2 Sat by Pulse Oximetry 97 96 03/15/20 05:00 03/15/20 06:00 03/15/20 07:00 Temperature Pulse Rate 122 H 121 H 137 H Respiratory Rate 22 24 14 Blood Pressure 131/92 145/102 118/91 O2 Sat by Pulse Oximetry 96 97 97 03/15/20 07:13 03/15/20 07:43 03/15/20 08:00 Temperature 97.7 F Pulse Rate 127 H Respiratory Rate 20 13 13 Blood Pressure 143/99 O2 Sat by Pulse Oximetry 97 03/15/20 09:00 03/15/20 09:15 03/15/20 09:24 Temperature Pulse Rate 121 H 118 H Respiratory Rate 14 15 Blood Pressure 149/101 149/101 O2 Sat by Pulse Oximetry 98 99 03/15/20 09:30 03/15/20 09:45 03/15/20 10:00 Temperature Pulse Rate 121 H 95 H 100 H Respiratory Rate 17 16 15 Blood Pressure 150/108 O2 Sat by Pulse Oximetry 97 98 96 03/15/20 10:15 03/15/20 10:30 03/15/20 10:45 Temperature Pulse Rate 101 H 105 H 102 H Respiratory Rate 16 15 18 Blood Pressure O2 Sat by Pulse Oximetry 97 98 98 03/15/20 11:00 03/15/20 11:15 03/15/20 11:30 Temperature Pulse Rate 111 H 113 H 115 H Respiratory Rate 17 15 13 Blood Pressure 134/90 O2 Sat by Pulse Oximetry 98 97 98 03/15/20 11:45 03/15/20 12:00 03/15/20 12:10 Temperature 97.9 F Pulse Rate 117 H 110 H Respiratory Rate 18 16 17 Blood Pressure 151/104 O2 Sat by Pulse Oximetry 96 96 03/15/20 12:15 03/15/20 12:30 03/15/20 12:40 Temperature Pulse Rate 120 H 112 H Respiratory Rate 15 18 17 Blood Pressure O2 Sat by Pulse Oximetry 98 97 03/15/20 12:45 03/15/20 13:00 03/15/20 13:15 Temperature Pulse Rate 114 H 112 H 115 H Respiratory Rate 16 17 20 Blood Pressure 144/102 O2 Sat by Pulse Oximetry 99 98 99 03/15/20 13:30 03/15/20 13:45 03/15/20 14:00 Temperature Pulse Rate 113 H 112 H 114 H Respiratory Rate 18 21 20 Blood Pressure 166/110 O2 Sat by Pulse Oximetry 97 98 97 03/15/20 14:15 03/15/20 14:29 03/15/20 14:30 Temperature Pulse Rate 112 H 117 H 114 H Respiratory Rate 22 18 19 Blood Pressure 159/102 O2 Sat by Pulse Oximetry 98 99 99 03/15/20 14:45 03/15/20 15:00 03/15/20 15:15 Temperature Pulse Rate 110 H 114 H 111 H Respiratory Rate 19 19 20 Blood Pressure 157/105 O2 Sat by Pulse Oximetry 99 98 98 03/15/20 15:30 03/15/20 15:45 03/15/20 16:00 Temperature Pulse Rate 112 H 111 H 111 H Respiratory Rate 15 75 H 45 H Blood Pressure 150/96 O2 Sat by Pulse Oximetry 97 98 98 03/15/20 16:15 03/15/20 16:30 03/15/20 16:45 Temperature Pulse Rate 112 H 111 H 112 H Respiratory Rate 66 H 113 H 20 Blood Pressure O2 Sat by Pulse Oximetry 98 97 99 03/15/20 17:00 03/15/20 17:15 03/15/20 17:24 Temperature Pulse Rate 108 H 123 H Respiratory Rate 18 17 16 Blood Pressure 139/93 O2 Sat by Pulse Oximetry 99 98 03/15/20 17:30 03/15/20 17:45 03/15/20 17:54 Temperature Pulse Rate 118 H 115 H Respiratory Rate 20 17 17 Blood Pressure O2 Sat by Pulse Oximetry 97 98 03/15/20 17:59 03/15/20 18:00 03/15/20 18:01 Temperature Pulse Rate 124 H 121 H Respiratory Rate 18 27 H Blood Pressure 158/107 O2 Sat by Pulse Oximetry 98 98 03/15/20 18:15 03/15/20 19:00 03/15/20 20:00 Temperature Pulse Rate 117 H 119 H 119 H Respiratory Rate 16 18 22 Blood Pressure 148/104 137/89 O2 Sat by Pulse Oximetry 98 98 97 03/15/20 21:00 03/15/20 21:19 03/15/20 21:20 Temperature Pulse Rate 118 H Respiratory Rate 2 L 21 Blood Pressure 149/101 149/101 O2 Sat by Pulse Oximetry 98 03/15/20 21:50 03/15/20 22:00 03/15/20 23:00 Temperature Pulse Rate 113 H 100 H Respiratory Rate 20 18 15 Blood Pressure 149/103 124/81 O2 Sat by Pulse Oximetry 96 96 03/16/20 00:00 03/16/20 01:00 03/16/20 02:00 Temperature Pulse Rate 113 H 115 H 119 H Respiratory Rate 14 18 24 Blood Pressure 128/85 117/73 145/98 O2 Sat by Pulse Oximetry 96 98 96 03/16/20 02:30 03/16/20 03:00 03/16/20 04:00 Temperature 97.6 F Pulse Rate 115 H 115 H Respiratory Rate 22 17 18 Blood Pressure 143/85 154/89 O2 Sat by Pulse Oximetry 97 96 03/16/20 05:00 03/16/20 06:00 03/16/20 06:15 Temperature Pulse Rate 114 H 112 H Respiratory Rate 16 18 18 Blood Pressure 158/100 141/101 O2 Sat by Pulse Oximetry 97 97 03/16/20 06:45 03/16/20 07:00 03/16/20 08:00 Temperature 97.6 F Pulse Rate 111 H 112 H Respiratory Rate 15 16 14 Blood Pressure 146/109 154/109 O2 Sat by Pulse Oximetry 97 98 03/16/20 08:35 03/16/20 10:15 03/16/20 10:45 Temperature Pulse Rate Respiratory Rate 18 20 Blood Pressure 159/104 O2 Sat by Pulse Oximetry Labs: Laboratory Last Values WBC 13.7 X10^3/uL (3.6-10.0) H 03/16/20 04:30 RBC 4.02 X10^6/uL (4.7-6.0) L 03/16/20 04:30 Hgb 11.4 g/dL (13.5-18.0) L 03/16/20 04:30 Hct 33.9 % (42.0-54.0) L 03/16/20 04:30 MCV 84.3 fL (80.0-100.0) 03/16/20 04:30 MCH 28.4 pg (27.0-34.0) 03/16/20 04:30 MCHC 33.7 g/dL (33.0-35.0) 03/16/20 04:30 RDW 14.2 % (11.6-16.5) 03/16/20 04:30 Plt Count 217 X10^3/uL (150.0-450.0) 03/16/20 04:30 Plt Count Comment Adequate (ADEQUATE) 03/13/20 07:08 MPV 8.6 fL (7.4-11.0) 03/16/20 04:30 Neut % (Auto) 67.4 % (42.0-75.0) 03/16/20 04:30 Lymph % (Auto) 25.5 % (21.0-51.0) 03/16/20 04:30 [place] % (Auto) 6.7 % (0.0-13.0) 03/16/20 04:30 Eos % (Auto) 0.2 % (0.9-2.9) L 03/16/20 04:30 Baso % (Auto) 0.2 % (0.2-1.0) 03/16/20 04:30 Neut # (Auto) 9.3 x10^3/uL (2.2-4.8) H 03/16/20 04:30 Lymph # (Auto) 3.5 X10^3/uL (1.3-2.9) H 03/16/20 04:30 [place] # (Auto) 0.9 x10^3/uL (0.3-0.8) H 03/16/20 04:30 Eos # (Auto) 0.0 x10^3/uL (0.0-0.2) 03/16/20 04:30 Baso # (Auto) 0.0 X10^3/uL (0.0-0.1) 03/16/20 04:30 Absolute Nucleated RBC 0.0 /100WBC 03/16/20 04:30 Total Counted 100 03/13/20 07:08 Neutrophils % (Manual) 80 % (39-76) H 03/13/20 07:08 Band Neutrophils % 2 % (0-10) 03/13/20 07:08 Lymphocytes % (Manual) 12 % (13-43) L 03/13/20 07:08 Monocytes % (Manual) 6 % (4-9) 03/13/20 07:08 Plt Morphology Comment Normal (NORMAL) 03/13/20 07:08 RBC Morphology Normal (NORMAL) 03/13/20 07:08 Sample Site Rrad 03/16/20 05:39 ABG pH 7.530 (7.35-7.45) H 03/16/20 05:39 ABG pCO2 34.0 mmHg (35.0-45.0) L 03/16/20 05:39 ABG pO2 86.0 mmHg (80.0-100.0) 03/16/20 05:39 ABG HCO3 28.4 mmol/L (22-26) H 03/16/20 05:39 ABG O2 Saturation 98.0 % (90-100) 03/16/20 05:39 ABG Base Excess 5.7 mmol/L (-2.0-2.0) H 03/16/20 05:39 Geoff Test Pos 03/16/20 05:39 A-a Gradient 21.0 mmHg 03/16/20 05:39 FiO2 21.0 03/16/20 05:39 Blood Gas Comments Marva abg well-mtf 03/16/20 05:39 Sodium 139 mmol/L (136-145) 03/16/20 04:30 Corrected Sodium 143 mmol/L (136-145) 03/16/20 04:30 Potassium 4.3 mmol/L (3.5-5.1) 03/16/20 11:16 Chloride 103 mmol/L (98-107) 03/16/20 04:30 Carbon Dioxide 26.9 mmol/L (21-32) 03/16/20 04:30 BUN 5 mg/dL (7-18) L 03/16/20 04:30 Creatinine 0.65 mg/dL (0.70-1.30) L 03/16/20 04:30 Est GFR (MDRD) Af Amer > 60 (>60) 03/16/20 04:30 Est GFR (MDRD) Non-Af > 60 (>60) 03/16/20 04:30 Glucose 247 mg/dL (65-99) H 03/16/20 04:30 POC Glucose (mg/dL) 297 mg/dL (65-99) H 03/16/20 12:10 Hemoglobin A1c 10.3 % 03/12/20 04:20 Lactic Acid 2.0 mmol/L (0.4-2.0) 03/14/20 10:15 Calcium 8.4 mg/dL (8.5-10.1) L 03/16/20 04:30 Corrected Calcium 9.4 mg/dL (8.5-10.1) 03/16/20 04:30 Magnesium 1.8 mg/dL (1.7-2.9) 03/16/20 04:30 Total Bilirubin 1.10 mg/dL (0.2-1.0) H 03/16/20 04:30 AST 11 Units/L (15-37) L 03/16/20 04:30 ALT 9 Units/L (12-78) L 03/16/20 04:30 Alkaline Phosphatase 89 Units/L (46-116) 03/16/20 04:30 Creatine Kinase 73 Units/L (39-308) 03/12/20 09:20 CK-MB (CK-2) 4.0 ng/mL (0-4.0) 03/12/20 09:20 CK/CKMB % Calc 5.5 % (<4) 03/12/20 09:20 Troponin I < 0.02 ng/mL (0-1.5) 03/12/20 09:20 Total Protein 6.2 g/dL (6.4-8.2) L 03/16/20 04:30 Albumin 2.8 g/dL (3.4-5.0) L 03/16/20 04:30 Globulin 3.4 g/dL (2.5-4.5) 03/16/20 04:30 Albumin/Globulin Ratio 0.8 Ratio (1.1-2.1) L 03/16/20 04:30 Specimen Type Catherized urine 03/12/20 10:10 Urine Color Yellow (YELLOW) 03/12/20 10:10 Urine Appearance Clear (CLEAR) 03/12/20 10:10 Urine pH 5.0 (5.0 - 8.0) 03/12/20 10:10 Ur Specific [place] 1.020 (1.000-1.030) 03/12/20 10:10 Urine Protein 2+ (NEGATIVE) 03/12/20 10:10 Urine Glucose (UA) 4+ (NEGATIVE) 03/12/20 10:10 Urine Ketones 4+ (NEGATIVE) 03/12/20 10:10 Urine Occult Blood 1+ (NEGATIVE) 03/12/20 10:10 Urine Nitrite Negative (NEGATIVE) 03/12/20 10:10 Urine Bilirubin Negative (NEGATIVE) 03/12/20 10:10 Urine Urobilinogen Normal (NORMAL) 03/12/20 10:10 Ur Leukocyte Esterase Negative (NEGATIVE) 03/12/20 10:10 Urine RBC None seen /HPF (0-3) 03/12/20 10:10 Urine WBC None seen /HPF (0-5) 03/12/20 10:10 Ur Squamous Epith Cells Negative /HPF (NEGATIVE) 03/12/20 10:10 Urine Bacteria Negative /HPF (NEGATIVE) 03/12/20 10:10 Ur Culture Indicated? No/not indicated 03/12/20 10:10 Urine Opiates Screen Negative (NEG=<300) 03/12/20 04:59 Urine Methadone Screen Positive (NEG=<300) 03/12/20 04:59 Ur Barbiturates Screen Negative (NEG=<200) 03/12/20 04:59 Ur Phencyclidine Scrn Negative (NEG=<25) 03/12/20 04:59 Ur Amphetamines Screen Negative (NEG=<1000) 03/12/20 04:59 U Benzodiazepines Scrn Positive (NEG=<200) 03/12/20 04:59 Urine Cocaine Screen Negative (NEG=<300) 03/12/20 04:59 U Marijuana (THC) Screen Negative (NEG=<50) 03/12/20 04:59 Acetone, Semi-Quant Negative (NEGATIVE) 03/15/20 04:25 SARS-CoV-2 (PCR) Negative (NEGATIVE) 03/12/20 07:29 Reason For Visit: METABOLIC ACIDOSIS, DKA, LEUKOCYTOSIS Discharge Date Discharge Date: 03/16/20 Discharge Diagnosis All Active Problems (Updated 03/12/20 @ 15:13 by Corky Tamez) Opioid dependence (Acute) Anemia (Acute) Pneumonia (Acute) New onset seizure (Acute) DKA, type 1 (Acute) Sepsis (Acute) Sepsis (Acute) Dehydration (Acute) Renal failure (Acute) Pneumonia (Acute) Gastroparesis due to DM (Acute) Acute hyperglycemia (Acute) DKA (diabetic ketoacidoses) (Acute) Metabolic acidosis due to diabetes mellitus (Acute) Acidosis, lactic (Acute) Respiratory failure, acute (Acute) DKA, type 1 (Acute) Acidosis, lactic (Acute) Hyperkalemia (Acute) Upper GI bleed (Acute) Hypokalemia (Acute) Fungal infection (Acute) DVT (deep venous thrombosis) (Acute) Leg pain (Acute) Sepsis (Acute) Generalized weakness (Acute) DKA (diabetic ketoacidoses) (Acute) Leukocytosis (Acute) Sepsis (Acute) Constipation (Acute) Type 1 diabetes mellitus (Acute) Metabolic acidosis (Acute) Acute dehydration (Acute) Leukocytosis (Acute) Abdominal pain (Acute) DKA (diabetic ketoacidoses) (Acute) Hypertension (Chronic) Type I diabetes mellitus (Chronic) Essential hypertension, benign (Chronic) Thoracic or lumbosacral neuritis or radiculitis (Chronic) GERD (gastroesophageal reflux disease) (Chronic) Low back pain (Chronic) Anxiety (Chronic) Plan of Treatment: Continue with present treatment and follow up plan. Pt is to keep follow up appointment as instructed and take medications as ordered. Discharge Medications Discharge Medications: No Known Drug Allergies Allergy (Verified 11/03/18 01:58) CONTINUE taking the following medications Linzess 45 mcg PO DAILY 03/12/20 [History] Novolin N NPH U-100 Insulin 25 unit SUBCUT BID 03/12/20 [History] Novolin R Regular U-100 Insuln 5 unit SUBCUT AC 03/12/20 [History] Xarelto 20 mg PO DAILY 03/12/20 [History] alprazolam 2 mg PO TID PRN 03/12/20 [History] famotidine 20 mg PO BID 03/12/20 [History] methadone 10 mg PO QID PRN 03/12/20 [History] pantoprazole 40 mg PO BID 03/12/20 [History] New Prescriptions oxycodone 10 mg PO TID PRN 10 Days #30 tab MDD 30mg 03/16/20 [Rx] promethazine 25 mg PO Q6HR PRN 30 Days #30 tab 03/16/20 [Rx] Discharge Disposition Discharge Disposition: Home Discharge Condition: Stable Discharge Plan Discharge Plan Hospital Course: Pt is a 39 y/o male pmhx DMT1, Opioid dependence, HTN, admitted for DKA with severe metabolic acidosis. Hospital course included DKA protocol that included insulin gtt, IVF, frequent FSBG and BMPs, along with pain and nausea control. Metabolic acidosis resolved with close of anion gap. Labs: Wbc 13.7, Hgb 11.4, Plt 217, Na 139, K 4.3, Cr 0.65, Glucose 247. Pt did admit that when he has opioid withdrawal symptoms, he does not eat and therefore does not take insulin. Pt was instructed to eat meals and take his insulin as prescribed along with sliding scale. Pt was discharged in stable condition. Patient Disposition: 01 HOME, SELF-CARE Condition: Stable Health Concerns: Post Hospitalization: new medications and changes needed to prevent readmission or further decline. Pt educated and given instructions on all concerns. Care Plan Goals: Problem: Fluid Volume Deficit Goal: Maintain/Improved Adequate hydration. Instructions: Follow provided instructions. Follow up with primary physician as directed. Contact primary care physician or report to the closest Emergency Room if condition worsens. Plan of Treatment: Continue with present treatment and follow up plan. Pt is to keep follow up appointment as instructed and take medications as ordered. Prescriptions: New oxycodone 10 mg tablet 10 mg PO TID MDD 30mg PRN10 Days Qty: 30 RF: 0 Continued trazodone 50 mg Tablet 50 mg PO HS RF: 0 lisinopril 10 mg Tablet 10 mg PO HS RF: 0 Novolin R Regular U-100 Insuln 100 unit/mL Solution 1 sliding scale dose subcut ACHS RF: 0 metoprolol tartrate 25 mg Tablet 25 mg PO DAILY RF: 0 methadone 10 mg Tablet 10 mg PO QID PRNRF: 0 famotidine 20 mg tablet 20 mg PO BID RF: 0 pantoprazole 40 mg tablet,delayed release (DR/EC) 40 mg PO BID RF: 0 Novolin R Regular U-100 Insuln 100 unit/mL solution 5 unit subcut AC RF: 0 Novolin N NPH U-100 Insulin 100 unit/mL suspension 25 unit SUBCUT BID RF: 0 alprazolam 2 mg tablet 2 mg PO TID PRNRF: 0 Xarelto 20 mg tablet 20 mg PO DAILY RF: 0 Linzess 145 mcg capsule 45 mcg PO DAILY RF: 0 promethazine 25 mg Tablet 25 mg PO Q6HR PRN (Reason: Nausea) 30 Days Qty: 30 RF: 0 Discontinued alprazolam 2 mg Tablet 2 mg PO TID PRN (Reason: Anxiety) RF: 0 Follow ups/Referrals Follow ups/Referrals: Rox Ferreira [Nurse Practitioner] - 03/24/20 10:30 am Instructions Instructions: Diabetic Ketoacidosis, Hypertension, [id number], Type 1 Diabetes Mellitus, Self Care, Adult, [id number], Preventing Diabetic Ketoacidosis Stand Alone Forms: Precautions for COVID19, Patient Portal, Social Distancing
[2020-03-16 15:36] VITALS: BP 126/76
== END 2020-03-16 14:50 | disposition home or self-care (01) | DRG 638 ==
LOC: ICU 04:05 → ER 04:05 → ICU 09:26
PROVIDERS: ADMIT Family Medicine; ATTEND Family Medicine
DX: K59.03 Drug induced constipation; E83.42 Hypomagnesemia; M54.5 Low back pain; F11.29 Opioid dependence with unspecified opioid-induced disorder; Z79.4 Long term (current) use of insulin; Z20.828 Contact with and (suspected) exposure to other viral communicable diseases; E10.43 Type 1 diabetes mellitus with diabetic autonomic (poly)neuropathy; E10.10 Type 1 diabetes mellitus with ketoacidosis without coma; R94.31 Abnormal electrocardiogram [ECG] [EKG]; E87.1 Hypo-osmolality and hyponatremia; I95.89 Other hypotension; K31.84 Gastroparesis; R11.2 Nausea with vomiting, unspecified; D72.828 Other elevated white blood cell count

== ENCOUNTER 2021-08-10 17:19 | Inpatient (IN) ==
[2021-08-10] MEDS ORDERED: NS 1,000 ML IV 1,000 ML ONE ×2 (17:31→23:40)
[2021-08-10] MEDS ORDERED: ZOFRAN INJ 4 MG VIAL ONE ×2 (17:31→19:02)
[2021-08-10] MEDS ORDERED: NS 1,000 ML IV 1,000 ML IV ONE ×2 (17:35→18:48)
[2021-08-10] MEDS ORDERED: ZOFRAN INJ 4 MG VIAL IVP ONE ×4 (17:35→23:22)
--- NOTE | 2021-08-10 17:41 | DR.N/VMALE ---
HPI Time Seen Time Seen by Provider: 08/10/21 17:40 Complaints Chief Complaint:: PT TO ER DUE TO N/V ( BROWNISH VOMIT NOTED IN EMESIS BAG ) GLUCOSE UPON ARRIVAL 448- PRIOR TO ER ARRIVAL EMS GAVE PT NS 500 ML BOLUS COVID-19 Coronavirus risk:travel/contact w/high risk person: No Has patient experienced Coronavirus symptoms: No Source History Provided: Patient and EMS Mode of Arrival Mode of Arrival: Stretcher Timing Onset of Chief Complaint: 08/09/21 PMH PMH Past Medical History: Yes Past Medical History: Diabetes Past Surgical History: No Surgical History: Other Family History History of Family Medical Conditions: Yes Family Medical History: Diabetes Mellitus, Sudden Cardiac and Hypertension Social History Does patient currently use any type of tobacco product: No Have you used tobacco products in the last 12 months: No Type of Tobacco Use: None Does any household member use tobacco: No Alcohol Use: None Do you use any recreational Drugs:: No Lives With: Family Lives Where: Home Travel Risk Coronavirus risk:travel/contact w/high risk person: No Has patient experienced Coronavirus symptoms: No Infectious screening In the last 2 months have you had wt loss of >10#?: NO Have you had fever, night sweats or hemotysis?: No Have you traveled outside the country in the last 6 months?: No Isolation: Standard ROS Review of Systems Constitutional: No Symptoms Reported and See HPI Eyes: No Symptoms Reported and See HPI ENTM: No Symptoms Reported and See HPI Respiratoy: No Symptoms Reported and See HPI Cardiovascular: No Symptoms Reported and See HPI Gastrointestinal/Abdominal: No Symptoms Reported and See HPI Genitourinary: No Symptoms Reported and See HPI Neurological: No Symptoms Reported and See HPI Musculoskeletal: No Symptoms Reported and See HPI Integumentary: No Symptoms Reported and See HPI Hematologic/Lymphatic: No Symptoms Reported and See HPI Endocrine: No Symptoms Reported and See HPI Psychiatric: No Symptoms Reported and See HPI All Other Systems: Reviewed and Negative PE Vital Signs Vitals: Temperature 98.0 F Pulse Rate 145 Respiratory Rate 23 Blood Pressure [Left Arm] 133/84 Blood Pressure [Right Arm] 132/81 Blood Pressure 135/80 O2 Sat by Pulse Oximetry 100 General Limitations: No Limitations General Appearance: Alert and In No Apparent Distress Head Head Exam: Normal Inspection Eyes Eye exam: Normal Appearance ENT ENT Exam: Normal Exam Neck Neck Exam: Normal Inspection Chest Chest Inspection: Normal Inspection Respiratory Respiratory Exam: Normal Lung Sounds Bilat Respiratory Exam: Bilateral: Clear to Auscultation Cardiovascular Cardiovascular Exam: Regular Rate and Normal Rhythm Abdominal Exam Abdominal Exam: Normal Inspection, Normal Bowel Sounds and Soft Rectal Rectal Exam: Deferred Exam: Male: Deferred Extremities Extremities Exam: Normal Inspection Back Back Exam: Normal Inspection Neurologic Neurological Exam: Alert and Oriented X3 Psychiatric Psychiatric Exam: Normal Affect and Normal Mood Skin Skin Exam: Warm, Dry, Intact and Normal Color MDM Differential Diagnosis Differential Diagnosis: Considerations may Include:: Diabetes/DKA, Gastritis and Gastroenteritis COURSE Consultation Called: 20:19 Consultation Comments: Dr. Franks agrees to admit patient Education/Counseling Education/Counseling: Patient Educated On: Treatment and Diagnosis ROR Labs Reviewed Laboratory Results Reviewed?: Yes Result Diagrams: 08/14/21 04:41 08/14/21 09:43 Laboratory: 08/10/21 17:58 Blood Blood Culture - Final 08/10/21 17:50 Blood Blood Culture - Final WBC 20.6 X10^3/uL (3.6-10.0) H 08/10/21 17:58 RBC 5.37 X10^6/uL (4.7-6.0) 08/10/21 17:58 Hgb 15.1 g/dL (13.5-18.0) 08/10/21 17:58 Hct 46.2 % (42.0-54.0) 08/10/21 17:58 MCV 85.9 fL (80.0-100.0) 08/10/21 17:58 MCH 28.1 pg (27.0-34.0) 08/10/21 17:58 MCHC 32.7 g/dL (33.0-35.0) L 08/10/21 17:58 RDW 13.9 % (11.6-16.5) 08/10/21 17:58 Plt Count 386 X10^3/uL (150.0-450.0) 08/10/21 17:58 MPV 8.1 fL (7.4-11.0) 08/10/21 17:58 Neut % (Auto) 87.9 % (42.0-75.0) H 08/10/21 17:58 Lymph % (Auto) 9.8 % (21.0-51.0) L 08/10/21 17:58 [place] % (Auto) 1.8 % (0.0-13.0) 08/10/21 17:58 Eos % (Auto) 0.0 % (0.9-2.9) L 08/10/21 17:58 Baso % (Auto) 0.5 % (0.2-1.0) 08/10/21 17:58 Neut # (Auto) 18.1 x10^3/uL (2.2-4.8) H 08/10/21 17:58 Lymph # (Auto) 2.0 X10^3/uL (1.3-2.9) 08/10/21 17:58 [place] # (Auto) 0.4 x10^3/uL (0.3-0.8) 08/10/21 17:58 Eos # (Auto) 0.0 x10^3/uL (0.0-0.2) 08/10/21 17:58 Baso # (Auto) 0.1 X10^3/uL (0.0-0.1) 08/10/21 17:58 Absolute Nucleated RBC 0.0 /100WBC 08/10/21 17:58 Sample Site Rbra 08/10/21 17:48 ABG pH 7.170 (7.35-7.45) L* 08/10/21 17:48 ABG pCO2 17.0 mmHg (35.0-45.0) L* 08/10/21 17:48 ABG pO2 101.0 mmHg (80.0-100.0) H 08/10/21 17:48 ABG HCO3 6.2 mmol/L (22-26) L* 08/10/21 17:48 ABG O2 Saturation 96.0 % (90-100) 08/10/21 17:48 ABG Base Excess -20.2 mmol/L (-2.0-2.0) L 08/10/21 17:48 Geoff Test N/a 08/10/21 17:48 A-a Gradient 27.0 mmHg 08/10/21 17:48 FiO2 21.0 08/10/21 17:48 Blood Gas Comments Pt reece well eb french tutor 08/10/21 17:48 Sodium 134 mmol/L (136-145) L 08/10/21 22:05 Corrected Sodium 145 mmol/L (136-145) 08/10/21 22:05 Potassium 5.2 mmol/L (3.5-5.1) H 08/10/21 22:05 Chloride 95 mmol/L (98-107) L 08/10/21 22:05 Carbon Dioxide 5.9 mmol/L (21-32) L* 08/10/21 22:05 BUN 18 mg/dL (7-18) 08/10/21 22:05 Creatinine 1.79 mg/dL (0.70-1.30) H 08/10/21 22:05 Est GFR (MDRD) Af Amer 55 (>60) L 08/10/21 22:05 Est GFR (MDRD) Non-Af 45 (>60) L 08/10/21 22:05 Glucose 551 mg/dL (65-99) H* 08/10/21 22:05 Lactic Acid 2.0 mmol/L (0.4-2.0) 08/10/21 17:58 Calcium 9.4 mg/dL (8.5-10.1) 08/10/21 22:05 Corrected Calcium TNP 08/10/21 17:58 Magnesium 1.6 mg/dL (1.7-2.9) L 08/10/21 17:38 Total Bilirubin 0.70 mg/dL (0.2-1.0) 08/10/21 17:58 AST 16 Units/L (15-37) 08/10/21 17:58 ALT 15 Units/L (12-78) 08/10/21 17:58 Alkaline Phosphatase 122 Units/L (46-116) H 08/10/21 17:58 Creatine Kinase 95 Units/L (39-308) 08/10/21 22:05 CK-MB (CK-2) 1.6 ng/mL (0-4.0) 08/10/21 22:05 CK/CKMB % Calc 1.7 % (<4) 08/10/21 22:05 Troponin I High Sens 10.2 ng/L (4.0-60.0) 08/10/21 22:05 Total Protein 8.4 g/dL (6.4-8.2) H 08/10/21 17:58 Albumin 3.9 g/dL (3.4-5.0) 08/10/21 17:58 Globulin 4.5 g/dL (2.5-4.5) 08/10/21 17:58 Albumin/Globulin Ratio 0.9 Ratio (1.1-2.1) L 08/10/21 17:58 Specimen Type Catherized urine 08/10/21: Urine Color Pale yellow (YELLOW) 08/10/21: Urine Appearance Clear (CLEAR) 08/10/21: Urine pH 5.0 (5.0 - 8.0) 08/10/21: Ur Specific Cable 1.025 (1.000-1.030) 08/10/21: Urine Protein 3+ (NEGATIVE) 08/10/21 Urine Glucose (UA) 4+ (NEGATIVE) 08/10/21: Urine Ketones 4+ (NEGATIVE) 08/10/21: Urine Blood 2+ (NEGATIVE) 08/10/21: Urine Nitrite Negative (NEGATIVE) 08/10/21: Urine Bilirubin Negative (NEGATIVE) 08/10/21: Urine Acetone Large (NEGATIVE) 08/10/21 18:35 Urine Urobilinogen Normal (NORMAL) 08/10/21: Ur Leukocyte Esterase Negative (NEGATIVE) 08/10/21: Urine RBC 5-10 /HPF (0-3) A 08/10/21: Urine WBC None seen /HPF (0-5) 08/10/21: Ur Squamous Epith Cells Rare /HPF (NEGATIVE) 08/10/21: Urine Bacteria Trace /HPF (NEGATIVE) 08/10/21: Ur Culture Indicated? No/not indicated 08/10/21: Urine Opiates Screen Negative (NEG=<300) 08/10/21 18:40 Urine Methadone Screen Positive (NEG=<300) 08/10/21 18:40 Ur Barbiturates Screen Negative (NEG=<200) 08/10/21 18:40 Ur Phencyclidine Scrn Negative (NEG=<25) 08/10/21 18:40 Ur Amphetamines Screen Negative (NEG=<1000) 08/10/21 18:40 U Benzodiazepines Scrn Positive (NEG=<200) 08/10/21 18:40 Urine Cocaine Screen Negative (NEG=<300) 08/10/21 18:40 U Marijuana (THC) Screen Negative (NEG=<50) 08/10/21 18:40 Acetone, Semi-Quant Cancelled 08/10/21 22:05 SARS-CoV-2 (PCR) Negative (NEGATIVE) 08/10/21 20:13 XRAY XRAY Interpreted by: Radiologist and Self X-ray Results: Name: JUANITA MARRERO : 1980 Sex: M Location: ER Order Number(s): [id number] Procedure(s):CHEST, 1 VIEW Ordering Physician: REMIGIO TELLEZ Primary Care: NFD,None Service Date: 08/10/21 Service Time: 1740 HISTORY N/V ( BROWNISH VOMIT NOTED IN EMESIS BAG ) GLUCOSE UPON ARRIVAL 448- PRIOR TO ER ARRIVAL EMS GAVE PT NS 500 ML BOLUS Relevant Clinical Information STUDY CHEST, 1 VIEW COMPARISON 03/12/2020. FINDINGS The trachea is midline. The cardiac silhouette is unremarkable. The lungs are clear without focal infiltrate or effusion. The bony thorax is unremarkable. IMPRESSION No acute cardiopulmonary findings . Electronically signed by: Ji Vogel (Aug 10, 2021 18:56:52) Report Electronically signed: 08/10/21 0155 CC: Remigio Tellez EKG Rate: 129 [place]: Normal Rhythm: ST Block: None Hypertrophy: None ST: Normal Opioid Opioid Risk Tool Family Hx of Substance Abuse: Illegal Drugs Personal Hx of Substance Abuse: Illegal Drugs Age (Ajit box if 16-45): Yes History of Preadolescent Sexual Abuse: No Psychological Disease: PTSD Total: 2 Total Score Risk Category: Low Risk Copyright: Fady ARTHUR predicting aberrant behaviors Diagnosis Discharge Problem: DKA (diabetic ketoacidosis), Abdominal pain, GI bleed Instructions Instructions: Type 2 Diabetes Mellitus, Diagnosis, Adult Smoking Tobacco Information, Adult Flank Pain, Adult, [id number] Steps to Quit Smoking, [id number] Abdominal Pain, Adult, [id number]-[id number] Diabetic Ketoacidosis Abdominal Pain, Adult Blood Glucose Monitoring, Adult Preventing Diabetic Ketoacidosis Forms: Excuse From Work or School Precautions for COVID19 [facility] Social Distancing
[2021-08-10 17:52] LABS: ABG BASE EXCESS -20.2 mmol/L (-2.0-2.0)
[2021-08-10 17:54] LABS: ABG HCO3 6.2 mmol/L (22-26)
[2021-08-10] MEDS ORDERED: DEMEROL INJ IVP ONE (18:11)
[2021-08-10 18:15] LABS: BASOPHILS # (AUTO) 0.1 X10^3/uL (0.0-0.1); BASOPHILS % (AUTO) 0.5 % (0.2-1.0); HEMATOCRIT 46.2 % (42.0-54.0); HEMOGLOBIN 15.1 g/dL (13.5-18.0); LYMPHOCYTES % (AUTO) 9.8 % (21.0-51.0); MEAN CORPUSCULAR HEMOGLOBIN 28.1 pg (27.0-34.0); MEAN CORPUSCULAR HGB CONC 32.7 g/dL (33.0-35.0); MEAN CORPUSCULAR VOLUME 85.9 fL (80.0-100.0); MEAN PLATELET VOLUME 8.1 fL (7.4-11.0); MONOCYTES # (AUTO) 0.4 x10^3/uL (0.3-0.8); MONOCYTES % (AUTO) 1.8 % (0.0-13.0); NEUTROPHILS # (AUTO) 18.1 x10^3/uL (2.2-4.8); NEUTROPHILS % (AUTO) 87.9 % (42.0-75.0); RED BLOOD COUNT 5.37 X10^6/uL (4.7-6.0); RED CELL DISTRIBUTION WIDTH 13.9 % (11.6-16.5); WHITE BLOOD COUNT 20.6 X10^3/uL (3.6-10.0)
[2021-08-10] MEDS ORDERED: DEMEROL INJ ONE (18:18)
[2021-08-10 18:25] LABS: ALANINE AMINOTRANSFERASE 15 Units/L (12-78); ALBUMIN 3.9 g/dL (3.4-5.0); ALKALINE PHOSPHATASE 122 Units/L (46-116); ASPARTATE AMINO TRANSFERASE 16 Units/L (15-37); BLOOD UREA NITROGEN 14 mg/dL (7-18); CALCIUM 9.5 mg/dL (8.5-10.1); CHLORIDE 96 mmol/L (98-107); COR NA(FOR HYPERGLY) 141 mmol/L (136-145); CREATININE 1.68 mg/dL (0.70-1.30); SODIUM 134 mmol/L (136-145); TOTAL PROTEIN 8.4 g/dL (6.4-8.2); eGFR NON BLACK RACES 49 (>60)
[2021-08-10 18:40] LABS: CARBON DIOXIDE 8.7 mmol/L (21-32)
[2021-08-10] MEDS ORDERED: NS 100 ML IV 100 ML ONE (18:52)
[2021-08-10] MEDS ORDERED: PROTONIX INJ 40 MG VIAL ONE (18:52)
--- NOTE | 2021-08-10 18:58 | RAD ---
HISTORYN/V ( BROWNISH VOMIT NOTED IN EMESIS BAG ) GLUCOSE UPON ARRIVAL 448- PRIOR TO ER ARRIVAL EMS GAVE PT NS 500 ML BOLUS Relevant Clinical InformationSTUDYCHEST, 1 [id number]/12/2020.FINDINGSThe trachea is midline. The cardiac silhouette is unremarkable. The lungs are clear without focal infiltrate or effusion. The bony thorax is unremarkable.IMPRESSIONNo acute cardiopulmonary findings .Electronically signed by: Ji Vogel (Aug 10, 2021 18:56:52)
[2021-08-10] MEDS: PROTONIX INJ 40 MG VIAL 80 MG in NS 100 ML IV 80 ML IV SCH (19:22)
--- NOTE | 2021-08-10 19:53 | RAD ---
HISTORYCENTRAL LINE INSERTION Relevant Clinical InformationSTUDYCHEST, 1 [id number]/12/2022 at 6:02 p.m..FINDINGSRight IJ catheter has been placed and the tip is in good position near the caval atrial junction. The trachea is midline. The cardiac silhouette is unremarkable. The lungs are clear without focal infiltrate or effusion. The bony thorax is unremarkable.IMPRESSIONSuccessful right IJ catheter placement. Lungs clear.Electronically signed by: Ji Vogel (Aug 10, 2021 19:52:25)
--- NOTE | 2021-08-10 21:03 | CT ---
HISTORYABD PAINSTUDYABDOMEN/PELVIS W/O CONCOMPARISONAugust 2018TECHNIQUENon-contrasted axial CT images of the abdomen and pelvis were obtained and reformatted into coronal and sagittal planes for further evaluation.Radiation dose: 484.50 mGy-cm total DLPFINDINGSLung bases are clear.Mild distal esophageal wall thickening.Stomach appears normal.Solid visceral organs of the upper abdomen are unremarkable.Gallbladder appears normal.No intra or extrahepatic biliary dilatation.Unremarkable appearance of the kidneys.No hydronephrosis, hydroureter or ureteral calculus.Andrea catheter in the urinary bladder.Moderate stool burden in the sigmoid colon and rectum.Otherwise, unremarkable appearance of the small and large bowel.Reproductive structures are unremarkable.No evidence of acute appendicitis.No pneumoperitoneum.No significant fluid collection.No adenopathy.No acute osseous abnormality.IMPRESSION1. No acute intra-abdominal abnormality detected.2. Distal esophageal wall thickening could represent esophagitis; correlate clinically.3. Moderate stool burden in the sigmoid colon and rectum.Electronically signed by: Baldo Pinon (Aug 10, 2021 21:01:57)
[2021-08-10] MEDS ORDERED: MYXREDLIN 100 UNIT/100 ML BAG 100 UNIT/100 ML PLAST..BAG IV PRN (22:29)
[2021-08-10 22:35] LABS: CALCIUM 9.4 mg/dL (8.5-10.1); CREATININE 1.79 mg/dL (0.70-1.30)
[2021-08-10 22:41] LABS: CARBON DIOXIDE 5.9 mmol/L (21-32)
[2021-08-10 22:49] LABS: BILIRUBIN,URINE NEGATIVE (NEGATIVE); BLOOD/HEMOGLOBIN,URINE 2+ (NEGATIVE); GLUCOSE, URINE 4+ (NEGATIVE); KETONES,URINE 4+ (NEGATIVE); LEUKOCYTE ESTERASE ,URINE NEGATIVE (NEGATIVE); NITRITES,URINE NEGATIVE (NEGATIVE); PROTEIN,URINE 3+ (NEGATIVE); UROBILINOGEN,URINE NORMAL (NORMAL)
[2021-08-10] MEDS ORDERED: MYXREDLIN 100 UNIT/100 ML BAG 100 UNIT/100 ML PLAST..BAG IV ONE (22:49)
[2021-08-10 22:53] LABS: APPEARANCE,URINE CLEAR (CLEAR); BACTERIA,URINE TRACE /HPF (NEGATIVE); COLOR,URINE PALE YELLOW (YELLOW); SQUAMOUS EPITHELIAL CELL,UR RARE /HPF (NEGATIVE)
[2021-08-10] MEDS ORDERED: NovoLIN R (or HumuLIN R) ONE ×3 (22:53→23:00)
[2021-08-10] MEDS ORDERED: NovoLIN R (or HumuLIN R) IV ONE (22:59)
[2021-08-10] MEDS ORDERED: NS 1/2 1,000 ML IV 1,000 ML IV SCH (23:36)
[2021-08-10] MEDS ORDERED: ROCEPHIN 1 GRAM IV PREMIX 1 G/50 ML IV.SOLN. IV ONE (23:36)
[2021-08-10] MEDS ORDERED: NS 1,000 ML IV 1,000 ML IV SCH (23:36)
[2021-08-10] MEDS: MORPHINE SULFATE INJ 2 MG INJ IVP PRN (23:46)
[2021-08-10] MEDS: OTBSDRIP XX SCH (23:56)
[2021-08-11 00:05] LABS: CKMB % 1.7 % (<4); CREATINE KINASE MB 1.6 ng/mL (0-4.0)
[2021-08-11] MEDS: OTBSDRIP XX SCH ×22 (01:05→23:17)
[2021-08-11] MEDS ORDERED: NS 1/2 1,000 ML IV 1,000 ML IV ONE ×5 (01:41→20:14)
[2021-08-11 01:57] VITALS: BMI 27.1
[2021-08-11 03:12] LABS: CALCIUM 8.4 mg/dL (8.5-10.1); CREATININE 1.8 mg/dL (0.70-1.30)
[2021-08-11] MEDS: ZOFRAN INJ 4 MG VIAL IVP PRN (04:05)
[2021-08-11] MEDS: PROTONIX INJ 40 MG VIAL 80 MG in NS 100 ML IV 80 ML IV SCH ×3 (04:14→15:37)
[2021-08-11 05:17] LABS: ABG BASE EXCESS -19.9 mmol/L (-2.0-2.0)
[2021-08-11 05:18] LABS: ABG ALLEN TEST POS; ABG HCO3 5.6 mmol/L (22-26)
[2021-08-11] MEDS: MORPHINE SULFATE INJ 2 MG INJ IVP PRN ×2 (05:44→20:05)
[2021-08-11 06:07] LABS: BASOPHILS % (AUTO) 0.2 % (0.2-1.0); HEMATOCRIT 44.1 % (42.0-54.0); HEMOGLOBIN 14.4 g/dL (13.5-18.0); LYMPHOCYTES # (AUTO) 2.4 X10^3/uL (1.3-2.9); LYMPHOCYTES % (AUTO) 9.7 % (21.0-51.0); MEAN CORPUSCULAR HEMOGLOBIN 27.9 pg (27.0-34.0); MEAN CORPUSCULAR HGB CONC 32.7 g/dL (33.0-35.0); MEAN CORPUSCULAR VOLUME 85.3 fL (80.0-100.0); MEAN PLATELET VOLUME 8.1 fL (7.4-11.0); MONOCYTES # (AUTO) 1.9 x10^3/uL (0.3-0.8); MONOCYTES % (AUTO) 7.8 % (0.0-13.0); NEUTROPHILS # (AUTO) 20.1 x10^3/uL (2.2-4.8); NEUTROPHILS % (AUTO) 82.3 % (42.0-75.0); RED BLOOD COUNT 5.17 X10^6/uL (4.7-6.0); RED CELL DISTRIBUTION WIDTH 13.7 % (11.6-16.5); WHITE BLOOD COUNT 24.4 X10^3/uL (3.6-10.0)
[2021-08-11 06:27] LABS: ALANINE AMINOTRANSFERASE 13 Units/L (12-78); ALBUMIN 3.6 g/dL (3.4-5.0); ALKALINE PHOSPHATASE 114 Units/L (46-116); ASPARTATE AMINO TRANSFERASE 14 Units/L (15-37); BLOOD UREA NITROGEN 17 mg/dL (7-18); CALCIUM 9.1 mg/dL (8.5-10.1); CHLORIDE 104 mmol/L (98-107); COR NA(FOR HYPERGLY) 143 mmol/L (136-145); CREATINE KINASE 174 Units/L (39-308); CREATINE KINASE MB 3.4 ng/mL (0-4.0); CREATININE 1.83 mg/dL (0.70-1.30); SODIUM 140 mmol/L (136-145); TOTAL PROTEIN 7.9 g/dL (6.4-8.2); eGFR NON BLACK RACES 44 (>60)
[2021-08-11 06:30] LABS: CARBON DIOXIDE 8.1 mmol/L (21-32)
[2021-08-11 07:02] LABS: PLATELET MORPHOLOGY COMMENT NORMAL (NORMAL)
[2021-08-11] MEDS ORDERED: APRESOLINE INJ 20 MG VIAL IVP PRN (08:05)
[2021-08-11] MEDS ORDERED: NS IV ONE (09:02)
--- NOTE | 2021-08-11 09:05 | DR.H&P ---
H&P - History & Physical for Day of: H&P Date: 08/10/21 - Chief Complaint Chief Complaint: N/V ( BROWNISH VOMIT NOTED IN EMESIS BAG ) - History of Present Illness History of Present Illness: N/V ( BROWNISH VOMIT NOTED IN EMESIS BAG ) GLUCOSE UPON ARRIVAL 448- PRIOR TO ER ARRIVAL EMS GAVE PT NS 500 ML BOLUS. PT WAS NOTED TO BY IN DKA ON ARRIVAL TO ER. PT HAS PMH OF TYPE I DM, HTN, GASTROPARESIS, GERD, NEUROPATHY AND CHRONIC PAIN. PT HAS HX OF NON COMPLIANCE. PT ADMITTED TO ICU FOR TREATMENT OF ACUTE ILLNESS - Past Medical History Past Medical History: Anxiety, Diabetes, Hypertension Additional Medical History: DKA, Gastroparesis, Chronic Low Back Pain With Radiculopathy, Pancreatitis, UTI's - Past Surgical History Surgical History: Other Additional Surgical History: [place] Teeth Surgically Removed - Family History Family Medical History: Diabetes Mellitus, Sudden Cardiac , Hypertension - Social History Does patient currently use any type of tobacco product: Yes Have you used tobacco products in the last 12 months: Yes Type of Tobacco Use: Cigarettes Does any household member use tobacco: No Alcohol Use: None Drug Use: Prescription Drugs - Medications Home Medications: No Known Drug Allergies Allergy (Verified 11/03/18 01:58) CONTINUE taking the following medications alprazolam 0.5 mg PO TID PRN 08/10/21 [History] duloxetine 30 mg PO DAILY 08/10/21 [History] - Review of Systems Constitutional: Weakness, Malaise Eyes: No Symptoms Reported ENT: No Symptoms Reported Respiratory: No Symptoms Reported Cardiovascular: No Symptoms Reported Gastrointestinal: Nausea, Vomiting, Abdominal Pain Musculoskeletal: Back Pain Skin: No Symptoms Reported Neurological: Weakness - Physical Exam Vital Signs: Temperature 97.7 F Pulse Rate 133 Respiratory Rate 17 Blood Pressure [Left Arm] 133/84 Blood Pressure [Right Arm] 132/81 Blood Pressure 161/88 O2 Sat by Pulse Oximetry 100 Oriented: Person Eyes: Normal Ear: Normal Nose: Normal Throat: Dry Respiratory: RLL Diminished, LLL Diminished Cardiovascular: Normal : Normal Auscultation: Bowel Sounds: Normal Palpation: Normal, Other (MILD ABDOMINAL DISTENTION) Tenderness: RUQ, LUQ, Epigastric, Mild Skin: Decreased Turgur. negative: Wound Musculoskeletal: Back:Lumbar Mood Description: Calm Speech Pattern: Appropriate, Delayed - Assessment/Plan (1) DKA (diabetic ketoacidosis) Status: Acute Plan: ADMIT ICU, SUPPLMENTAL O2. CARDIAC MONITORING, INSULING DRIP PER PROTOCOL. AGGRESSIVE IV HYDRATION, STRICT I&OS WITH OLGUIN CATH. PROTONIX DRIP, NG TUBE FOR INTRACTABLE N/V. PAIN AND NAUSEA CONTROL. IV ATBX THERAPY, CT ABD PELVIS ON ADMISSION, CXR ON ADMISSION. VERIFY HOME MEDICATION, BLOOD AND URINE CULTURES OBTAINED ON ADMISSION (2) GI bleed Status: Acute (3) Opioid dependence Qualifiers: Substance use status: with unspecified opioid-induced disorder Qualified Code(s): F11.29 - Opioid dependence with unspecified opioid-induced disorder Status: Acute (4) Anemia Qualifiers: Anemia type: iron deficiency Iron deficiency anemia type: chronic blood loss Qualified Code(s): D50.0 - Iron deficiency anemia secondary to blood loss (chronic) Status: Acute (5) Dehydration Status: Acute (6) Gastroparesis due to DM Status: Acute (7) Leukocytosis Qualifiers: Leukocytosis type: other Qualified Code(s): D72.828 - Other elevated white blood cell count Status: Acute - Allergies Allergies/Adverse Reactions: Allergies Allergy/AdvReac Type Severity Reaction Status Date / Time No Known Drug Allergies Allergy Verified 11/03/18 01:58
[2021-08-11 10:47] LABS: CHLORIDE 106 mmol/L (98-107); COR NA(FOR HYPERGLY) 139 mmol/L (136-145); SODIUM 137 mmol/L (136-145)
[2021-08-11 10:56] LABS: BLOOD UREA NITROGEN 13 mg/dL (7-18); CARBON DIOXIDE 14.1 mmol/L (21-32); CREATININE 1.47 mg/dL (0.70-1.30); eGFR NON BLACK RACES 57 (>60)
[2021-08-11] MEDS: NS 1/2 1,000 ML IV 1,000 ML IV SCH ×4 (11:47→22:53)
[2021-08-11 13:44] LABS: CKMB % 1.8 % (<4); CREATINE KINASE MB 2.9 ng/mL (0-4.0)
[2021-08-11 14:08] LABS: ABG BASE EXCESS -12.5 mmol/L (-2.0-2.0)
[2021-08-11 14:09] LABS: ABG ALLEN TEST POS; ABG HCO3 12.5 mmol/L (22-26)
[2021-08-11 18:52] LABS: BLOOD UREA NITROGEN 8 mg/dL (7-18); CALCIUM 8.3 mg/dL (8.5-10.1); CARBON DIOXIDE 16.5 mmol/L (21-32); CHLORIDE 104 mmol/L (98-107); COR NA(FOR HYPERGLY) 138 mmol/L (136-145); SODIUM 136 mmol/L (136-145); eGFR NON BLACK RACES > 60 (>60)
[2021-08-11] MEDS: ROCEPHIN 1 GRAM IV PREMIX 1 G/50 ML IV.SOLN. IV SCH (20:06)
[2021-08-11] MEDS ORDERED: MICRO K EXTEN CAP 10 MEQ PO PRN (21:53)
[2021-08-11] MEDS ORDERED: KLOR-CON PO PRN (21:53)
[2021-08-11] MEDS ORDERED: POTASSIUM CHL 40 MEQ/NS 0.45% 500 ML IV PRN (21:53)
[2021-08-11] MEDS ORDERED: POTASSIUM CHL 60 MEQ/NS 0.45% 500 ML IV PRN (21:53)
[2021-08-11] MEDS ORDERED: POTASSIUM CHLORIDE LIQ 20 MEQ UDC PO PRN (21:53)
[2021-08-11 22:42] LABS: BLOOD UREA NITROGEN 6 mg/dL (7-18); CALCIUM 8.4 mg/dL (8.5-10.1); CARBON DIOXIDE 19.1 mmol/L (21-32); CHLORIDE 104 mmol/L (98-107); COR NA(FOR HYPERGLY) 138 mmol/L (136-145); CREATININE 1.25 mg/dL (0.70-1.30); SODIUM 136 mmol/L (136-145); eGFR NON BLACK RACES > 60 (>60)
[2021-08-11] MEDS: MAGNESIUM SULFATE 1 GRAM/100 mL PREMIX 1 G/100 ML BAG IV PRN ×2 (22:54→23:58)
[2021-08-12] MEDS: OTBSDRIP XX SCH ×7 (00:07→06:14)
[2021-08-12] MEDS: PROTONIX INJ 40 MG VIAL 80 MG in NS 100 ML IV 80 ML IV SCH ×5 (00:31→20:59)
[2021-08-12] MEDS: MAGNESIUM SULFATE 1 GRAM/100 mL PREMIX 1 G/100 ML BAG IV PRN ×2 (01:03→03:23)
[2021-08-12] MEDS: MORPHINE SULFATE INJ 2 MG INJ IVP PRN ×2 (03:26→08:37)
[2021-08-12 04:46] LABS: BASOPHILS % (AUTO) 0.2 % (0.2-1.0); HEMATOCRIT 34.3 % (42.0-54.0); LYMPHOCYTES # (AUTO) 2.6 X10^3/uL (1.3-2.9); LYMPHOCYTES % (AUTO) 17.8 % (21.0-51.0); MEAN CORPUSCULAR HEMOGLOBIN 27.9 pg (27.0-34.0); MEAN CORPUSCULAR HGB CONC 34.1 g/dL (33.0-35.0); MEAN CORPUSCULAR VOLUME 81.9 fL (80.0-100.0); MEAN PLATELET VOLUME 7.7 fL (7.4-11.0); MONOCYTES # (AUTO) 1.2 x10^3/uL (0.3-0.8); MONOCYTES % (AUTO) 8.3 % (0.0-13.0); NEUTROPHILS # (AUTO) 10.7 x10^3/uL (2.2-4.8); NEUTROPHILS % (AUTO) 73.7 % (42.0-75.0); RED BLOOD COUNT 4.19 X10^6/uL (4.7-6.0); RED CELL DISTRIBUTION WIDTH 13.6 % (11.6-16.5); WHITE BLOOD COUNT 14.5 X10^3/uL (3.6-10.0)
[2021-08-12 04:52] LABS: ALANINE AMINOTRANSFERASE 10 Units/L (12-78); ALBUMIN 2.9 g/dL (3.4-5.0); ALKALINE PHOSPHATASE 86 Units/L (46-116); ASPARTATE AMINO TRANSFERASE 13 Units/L (15-37); BLOOD UREA NITROGEN 5 mg/dL (7-18); CALCIUM 8.4 mg/dL (8.5-10.1); CARBON DIOXIDE 21.5 mmol/L (21-32); CHLORIDE 102 mmol/L (98-107); COR CA(FOR HYPOALB) 9.3 mg/dL (8.5-10.1); COR NA(FOR HYPERGLY) 138 mmol/L (136-145); CREATININE 1.18 mg/dL (0.70-1.30); SODIUM 136 mmol/L (136-145); TOTAL PROTEIN 6.2 g/dL (6.4-8.2); eGFR NON BLACK RACES > 60 (>60)
[2021-08-12 04:58] LABS: HEMOGLOBIN 11.7 g/dL (13.5-18.0)
[2021-08-12] MEDS: K-RIDER 10 MEQ/NS 100 ML 10 MEQ/100 ML BAG IV PRN ×6 (05:01→10:43)
[2021-08-12 08:20] LABS: ABG ALLEN TEST POS; ABG BASE EXCESS -3.5 mmol/L (-2.0-2.0); ABG HCO3 20.3 mmol/L (22-26)
[2021-08-12] MEDS: METHADONE HCL PO PRN ×4 (09:15→21:01)
[2021-08-12] MEDS: CYMBALTA PO SCH (09:15)
[2021-08-12] MEDS: XANAX PO PRN (09:15)
[2021-08-12] MEDS ORDERED: NS 1/2 1,000 ML IV 1,000 ML IV ONE (11:29)
[2021-08-12] MEDS: NS 1/2 1,000 ML IV 1,000 ML IV SCH ×2 (11:29→14:18)
[2021-08-12] MEDS: NovoLIN R (or HumuLIN R) SUBCUT PRN ×3 (11:42→20:59)
[2021-08-12] MEDS: ZOFRAN INJ 4 MG VIAL IVP PRN ×2 (12:20→17:25)
[2021-08-12] MEDS: PHENERGAN INJ 25 MG IM PRN ×2 (13:20→20:00)
--- NOTE | 2021-08-12 15:05 | VAS ---
HISTORYClinical concern for deep venous thrombosis.STUDYLOWER EXT VENOUS, BILATERALCOMPARISONNone.TECHNIQUEMultipl e bran scale and color flow Doppler images of the deep venous system were obtained of the right and left lower extremity.FINDINGSThe deep venous system of the right and left lower extremities were evaluated from the level of the common femoral vein through the popliteal vein. Normal color flow and augmentation can be observed. In addition, normal compression is seen throughout the deep venous system.IMPRESSIONNegative for bilateral lower extremity DVT.Electronically signed by: JOSE ANTONIO ELLINGTON (Aug 12, 2021 15:04:49)
[2021-08-12] MEDS: SNACK - Diabetic Appropriate PO SCH (20:04)
[2021-08-12] MEDS: DESYREL PO SCH (20:58)
[2021-08-12] MEDS: ROCEPHIN 1 GRAM IV PREMIX 1 G/50 ML IV.SOLN. IV SCH (20:59)
[2021-08-12] MEDS: K-DUR TAB 20 MEQ PO PRN (21:00)
[2021-08-12] MEDS: ZESTRIL TAB 10 MG PO SCH (21:00)
[2021-08-13] MEDS: NS 1/2 1,000 ML IV 1,000 ML IV SCH ×7 (00:50→23:19)
[2021-08-13] MEDS: METHADONE HCL PO PRN ×4 (02:32→20:43)
[2021-08-13] MEDS: PROTONIX INJ 40 MG VIAL 80 MG in NS 100 ML IV 80 ML IV SCH ×4 (04:07→16:41)
[2021-08-13 04:22] LABS: BASOPHILS % (AUTO) 0.3 % (0.2-1.0); HEMATOCRIT 32.6 % (42.0-54.0); LYMPHOCYTES # (AUTO) 2.4 X10^3/uL (1.3-2.9); LYMPHOCYTES % (AUTO) 21.7 % (21.0-51.0); MEAN CORPUSCULAR HGB CONC 33.6 g/dL (33.0-35.0); MEAN CORPUSCULAR VOLUME 83.2 fL (80.0-100.0); MEAN PLATELET VOLUME 7.8 fL (7.4-11.0); MONOCYTES % (AUTO) 9.3 % (0.0-13.0); NEUTROPHILS # (AUTO) 7.6 x10^3/uL (2.2-4.8); NEUTROPHILS % (AUTO) 68.7 % (42.0-75.0); RED BLOOD COUNT 3.92 X10^6/uL (4.7-6.0); RED CELL DISTRIBUTION WIDTH 13.6 % (11.6-16.5); WHITE BLOOD COUNT 11.1 X10^3/uL (3.6-10.0)
[2021-08-13 04:29] LABS: BLOOD UREA NITROGEN 6 mg/dL (7-18); CALCIUM 8.5 mg/dL (8.5-10.1); CARBON DIOXIDE 17.3 mmol/L (21-32); CHLORIDE 101 mmol/L (98-107); COR NA(FOR HYPERGLY) 141 mmol/L (136-145); CREATININE 1.13 mg/dL (0.70-1.30); MAGNESIUM 1.6 mg/dL (1.7-2.9); SODIUM 136 mmol/L (136-145); eGFR NON BLACK RACES > 60 (>60)
[2021-08-13] MEDS: MAGNESIUM SULFATE 1 GRAM/100 mL PREMIX 1 G/100 ML BAG IV PRN ×2 (05:02→06:19)
[2021-08-13] MEDS: NovoLIN R (or HumuLIN R) SUBCUT PRN ×4 (05:32→20:40)
[2021-08-13] MEDS: CYMBALTA PO SCH (08:06)
[2021-08-13] MEDS: XANAX PO PRN ×3 (08:06→20:44)
[2021-08-13] MEDS: COLACE CAP 100 MG PO SCH ×2 (09:20→20:39)
[2021-08-13] MEDS: MILK OF MAGNESIA PO SCH ×2 (09:21→20:40)
[2021-08-13] MEDS: K-DUR TAB 20 MEQ PO PRN (09:21)
[2021-08-13] MEDS ORDERED: NS 1/2 1,000 ML IV 1,000 ML IV ONE ×2 (12:28→18:00)
[2021-08-13] MEDS: PHENERGAN INJ 25 MG IM PRN (18:02)
[2021-08-13] MEDS: SNACK - Diabetic Appropriate PO SCH (20:38)
[2021-08-13] MEDS: DESYREL PO SCH (20:39)
[2021-08-13] MEDS: ROCEPHIN 1 GRAM IV PREMIX 1 G/50 ML IV.SOLN. IV SCH (20:41)
[2021-08-13] MEDS: ZESTRIL TAB 10 MG PO SCH (20:42)
[2021-08-14] MEDS ORDERED: NS 1/2 1,000 ML IV 1,000 ML IV ONE (00:21)
[2021-08-14] MEDS: PROTONIX INJ 40 MG VIAL 80 MG in NS 100 ML IV 80 ML IV SCH ×2 (00:56→03:21)
[2021-08-14] MEDS: METHADONE HCL PO PRN (02:04)
[2021-08-14] MEDS: NS 1/2 1,000 ML IV 1,000 ML IV SCH (03:21)
[2021-08-14 05:05] LABS: BASOPHILS % (AUTO) 0.4 % (0.2-1.0); EOSINOPHILS # (AUTO) 0.1 x10^3/uL (0.0-0.2); EOSINOPHILS % (AUTO) 1.2 % (0.9-2.9); HEMATOCRIT 30.2 % (42.0-54.0); HEMOGLOBIN 10.4 g/dL (13.5-18.0); LYMPHOCYTES # (AUTO) 3.2 X10^3/uL (1.3-2.9); LYMPHOCYTES % (AUTO) 33.3 % (21.0-51.0); MEAN CORPUSCULAR HEMOGLOBIN 28.2 pg (27.0-34.0); MEAN CORPUSCULAR HGB CONC 34.2 g/dL (33.0-35.0); MEAN CORPUSCULAR VOLUME 82.5 fL (80.0-100.0); MEAN PLATELET VOLUME 7.8 fL (7.4-11.0); MONOCYTES # (AUTO) 0.8 x10^3/uL (0.3-0.8); MONOCYTES % (AUTO) 8.7 % (0.0-13.0); NEUTROPHILS # (AUTO) 5.4 x10^3/uL (2.2-4.8); NEUTROPHILS % (AUTO) 56.4 % (42.0-75.0); RED BLOOD COUNT 3.67 X10^6/uL (4.7-6.0); RED CELL DISTRIBUTION WIDTH 13.5 % (11.6-16.5); WHITE BLOOD COUNT 9.6 X10^3/uL (3.6-10.0)
[2021-08-14 05:27] LABS: ALANINE AMINOTRANSFERASE 10 Units/L (12-78); ALBUMIN 2.6 g/dL (3.4-5.0); ALKALINE PHOSPHATASE 79 Units/L (46-116); ASPARTATE AMINO TRANSFERASE 9 Units/L (15-37); BLOOD UREA NITROGEN 7 mg/dL (7-18); CALCIUM 7.8 mg/dL (8.5-10.1); CARBON DIOXIDE 19.5 mmol/L (21-32); CHLORIDE 99 mmol/L (98-107); COR CA(FOR HYPOALB) 8.9 mg/dL (8.5-10.1); COR NA(FOR HYPERGLY) 136 mmol/L (136-145); CREATININE 0.97 mg/dL (0.70-1.30); SODIUM 130 mmol/L (136-145); TOTAL PROTEIN 5.6 g/dL (6.4-8.2); eGFR NON BLACK RACES > 60 (>60)
[2021-08-14] MEDS: K-DUR TAB 20 MEQ PO PRN (05:34)
[2021-08-14] MEDS: NovoLIN R (or HumuLIN R) SUBCUT PRN ×2 (05:34→12:07)
[2021-08-14] MEDS: MILK OF MAGNESIA PO SCH (08:55)
[2021-08-14] MEDS: CYMBALTA PO SCH (08:55)
[2021-08-14] MEDS: COLACE CAP 100 MG PO SCH (08:55)
[2021-08-14] MEDS: XANAX PO PRN (09:58)
[2021-08-14 12:22] VITALS: BP 125/84
== END 2021-08-14 14:04 | disposition home or self-care (01) | DRG 638 ==
LOC: ER 17:19 → ICU 22:51
PROVIDERS: ADMIT Internal Medicine; ATTEND Internal Medicine

== ENCOUNTER 2021-10-07 16:18 | Inpatient (IN) ==
[2021-10-07] MEDS ORDERED: NS 1,000 ML IV 1,000 ML IV ONE ×2 (16:32→17:58)
--- NOTE | 2021-10-07 16:32 | DR.HYPOGLY ---
HPI Time Seen Time Seen by Provider: 10/07/21 16:30 Complaint Chief Complaint Doctors Comments: 40 y/o male brought in by EMS for elevated glucose, nausea/vomiting and weakness over the past 3 days. + h/o IDDM, h/o DKA in the past, unable to take anything by mouth. Glucose has been running high. Having generalized weakness, diffuse abdominal pain. Pain is sharp, wax/wanes, does not radiate. nothing makes it better, nothing makes it worse. COVID-19 Coronavirus risk:travel/contact w/high risk person: No Has patient experienced Coronavirus symptoms: No Nurses notes reviewed Nurses Notes Review: Yes Source History Provided: Patient and EMS Mode of Arrival Mode of Arrival: Stretcher Timing Came on: Gradually Duration Duration: Since Onset Duration: Days (3) PMH PMH Past Medical History: Anxiety, Diabetes and Hypertension Past Surgical History: No Surgical History: Other Family History Family Medical History: Diabetes Mellitus, Sudden Cardiac and Hypertension Social History Do you use any recreational Drugs:: No ROS Review of Systems Constitutional: Malaise, Weakness and Loss of Appetite Eyes: No Symptoms Reported ENTM: No Symptoms Reported Respiratoy: No Symptoms Reported Cardiovascular: No Symptoms Reported Gastrointestinal/Abdominal: Abdominal Pain and Vomiting Genitourinary: No Symptoms Reported Neurological: Weakness and Dizziness Musculoskeletal: Muscle Pain Integumentary: No Symptoms Reported Hematologic/Lymphatic: No Symptoms Reported Psychiatric: No Symptoms Reported All Other Systems: Reviewed and Negative PE Vital Signs Vitals: Temperature 99.2 F Pulse Rate 145 Respiratory Rate 20 Blood Pressure [Left Arm] 133/84 Blood Pressure [Right Arm] 132/81 Blood Pressure 116/79 O2 Sat by Pulse Oximetry 100 General Limitations: No Limitations General Appearance: In Distress (appears ill) Eyes Eye exam: PERRL and EOMI ENT ENT Exam: Mucous Membranes Moist Neck Neck Exam: Normal Inspection and Full ROM Chest Chest Inspection: Normal Inspection Respiratory Respiratory Exam: Normal Lung Sounds Bilat; negative Accessory Muscle Use and Respiratory Distress Respiratory Exam: Bilateral: Clear to Auscultation Cardiovascular Cardiovascular Exam: Regular Rate, Normal Rhythm, Tachycardia and Normal Heart Sounds Abdominal Exam Abdominal Exam: Normal Bowel Sounds, Soft and Tenderness (all quadrants, no guarding or rebound) Extremities Extremities Exam: negative Edema and Calf Tenderness Back Back Exam: Normal Inspection Neurologic Neurological Exam: Alert, Oriented X3, CN II-XII Intact and Other (has diffuse weakness); negative Motor Sensory Deficit Skin Skin Exam: Warm and Dry; negative Rash MDM Additional information Findings: DDX - DKA, electrolyte abnormalities, intra abdominal pathology COURSE Treatment Treatment: 40 y/o male, with IDDM, presents in DKA. Ill x 3 days. W/u initiated, given IV fluids, IV zofran/morphine. ABG shows pH 7.2, pCO2 12, HCO3 4.7. Pt given amp of IV bicarb. CMP with K+ 6.1, bicarb 7.3, Cr 2.49, glucose 778. Has moderate serum acetone. Ginve additional IV fluids, 10 U regular insulin bolus. Will recommend admission, continue IV fluids, start IV insulin drip. Has an elevated WBC of 36K (record shows he has had marked leukocytosis with his DKA in the past.) Call put out to covering MD for hospital admissions, Dr Franks. Dr Franks accepts the admission. [facility]OR Labs Reviewed Laboratory Results Reviewed?: Yes Result Diagrams: 10/07/21 16:30 10/07/21 16:30 Laboratory: WBC 36.7 X10^3/uL (3.6-10.0) H* 10/07/21 16:30 RBC 5.15 X10^6/uL (4.7-6.0) 10/07/21 16:30 Hgb 13.9 g/dL (13.5-18.0) 10/07/21 16:30 Hct 45.2 % (42.0-54.0) 10/07/21 16:30 MCV 87.7 fL (80.0-100.0) 10/07/21 16:30 MCH 27.0 pg (27.0-34.0) 10/07/21 16:30 MCHC 30.8 g/dL (33.0-35.0) L 10/07/21 16:30 RDW 14.6 % (11.6-16.5) 10/07/21 16:30 Plt Count 349 X10^3/uL (150.0-450.0) 10/07/21 16:30 MPV 9.0 fL (7.4-11.0) 10/07/21 16:30 Neut % (Auto) 82.7 % (42.0-75.0) H 10/07/21 16:30 Lymph % (Auto) 11.2 % (21.0-51.0) L 10/07/21 16:30 Desha % (Auto) 5.5 % (0.0-13.0) 10/07/21 16:30 Eos % (Auto) 0.1 % (0.9-2.9) L 10/07/21 16:30 Baso % (Auto) 0.5 % (0.2-1.0) 10/07/21 16:30 Neut # (Auto) 30.3 x10^3/uL (2.2-4.8) H 10/07/21 16:30 Lymph # (Auto) 4.1 X10^3/uL (1.3-2.9) H 10/07/21 16:30 Desha # (Auto) 2.0 x10^3/uL (0.3-0.8) H 10/07/21 16:30 Eos # (Auto) 0.0 x10^3/uL (0.0-0.2) 10/07/21 16:30 Baso # (Auto) 0.2 X10^3/uL (0.0-0.1) H 10/07/21 16:30 Absolute Nucleated RBC 0.1 /100WBC 10/07/21 16:30 Sample Site Rrad 10/07/21 16:42 ABG pH 7.200 (7.35-7.45) L 10/07/21 16:42 ABG pCO2 12.0 mmHg (35.0-45.0) L* 10/07/21 16:42 ABG pO2 112.0 mmHg (80.0-100.0) H 10/07/21 16:42 ABG HCO3 4.7 mmol/L (22-26) L* 10/07/21 16:42 ABG O2 Saturation 97.0 % (90-100) 10/07/21 16:42 ABG Base Excess -20.8 mmol/L (-2.0-2.0) L 10/07/21 16:42 Geoff Test Pos 10/07/21 16:42 A-a Gradient 23.0 mmHg 10/07/21 16:42 FiO2 21.0 10/07/21 16:42 Blood Gas Comments Pt reece well elj 10/07/21 16:42 Sodium 128 mmol/L (136-145) L 10/07/21 16:30 Corrected Sodium 144 mmol/L (136-145) 10/07/21 16:30 Potassium 6.1 mmol/L (3.5-5.1) H* 10/07/21 16:30 Chloride 86 mmol/L (98-107) L 10/07/21 16:30 Carbon Dioxide 7.3 mmol/L (21-32) L* 10/07/21 16:30 BUN 31 mg/dL (7-18) H 10/07/21 16:30 Creatinine 2.49 mg/dL (0.70-1.30) H 10/07/21 16:30 Est GFR (MDRD) Af Amer 37 (>60) L 10/07/21 16:30 Est GFR (MDRD) Non-Af 31 (>60) L 10/07/21 16:30 Glucose 778 mg/dL (65-99) H* 10/07/21 16:30 POC Glucose (mg/dL) > 600 mg/dL (65-99) 10/07/21 18:02 Calcium 9.3 mg/dL (8.5-10.1) 10/07/21 16:30 Corrected Calcium TNP 10/07/21 16:30 Total Bilirubin 0.70 mg/dL (0.2-1.0) 10/07/21 16:30 AST 15 Units/L (15-37) 10/07/21 16:30 ALT 14 Units/L (12-78) 10/07/21 16:30 Alkaline Phosphatase 112 Units/L (46-116) 10/07/21 16:30 Creatine Kinase 62 Units/L (39-308) 10/07/21 16:30 CK-MB (CK-2) 1.9 ng/mL (0-4.0) 10/07/21 16:30 CK/CKMB % Calc 3.1 % (<4) 10/07/21 16:30 Troponin I High Sens 9.4 ng/L (4.0-60.0) 10/07/21 16:30 Total Protein 7.8 g/dL (6.4-8.2) 10/07/21 16:30 Albumin 3.8 g/dL (3.4-5.0) 10/07/21 16:30 Globulin 4.0 g/dL (2.5-4.5) 10/07/21 16:30 Albumin/Globulin Ratio 1.0 Ratio (1.1-2.1) L 10/07/21 16:30 Lipase 90 Units/L (73-393) 10/07/21 16:30 Acetone, Semi-Quant Moderate (NEGATIVE) H 10/07/21 16:30 Other Results Comments: see comments in "Course" Opioid Opioid Risk Tool Family Hx of Substance Abuse: Illegal Drugs Personal Hx of Substance Abuse: Illegal Drugs Age (Ajit box if 16-45): Yes History of Preadolescent Sexual Abuse: No Psychological Disease: PTSD Total: 2 Total Score Risk Category: Low Risk Copyright: Fady ARTHUR predicting aberrant behaviors Diagnosis Discharge Problem: DKA (diabetic ketoacidoses) Qualifiers: Diabetes mellitus type: type 1 Diabetes mellitus complication detail: without coma Qualified Code(s): E10.10 - Type 1 diabetes mellitus with ketoacidosis without coma
[2021-10-07] MEDS ORDERED: NS 1,000 ML IV 1,000 ML ONE ×2 (16:36→17:37)
[2021-10-07] MEDS ORDERED: ZOFRAN INJ 4 MG VIAL IVP ONE (16:37)
[2021-10-07] MEDS ORDERED: ZOFRAN INJ 4 MG VIAL ONE (16:38)
[2021-10-07 16:44] LABS: BASOPHILS # (AUTO) 0.2 X10^3/uL (0.0-0.1); BASOPHILS % (AUTO) 0.5 % (0.2-1.0); EOSINOPHILS % (AUTO) 0.1 % (0.9-2.9); HEMATOCRIT 45.2 % (42.0-54.0); HEMOGLOBIN 13.9 g/dL (13.5-18.0); LYMPHOCYTES # (AUTO) 4.1 X10^3/uL (1.3-2.9); LYMPHOCYTES % (AUTO) 11.2 % (21.0-51.0); MEAN CORPUSCULAR HGB CONC 30.8 g/dL (33.0-35.0); MEAN CORPUSCULAR VOLUME 87.7 fL (80.0-100.0); MONOCYTES % (AUTO) 5.5 % (0.0-13.0); NEUTROPHILS # (AUTO) 30.3 x10^3/uL (2.2-4.8); NEUTROPHILS % (AUTO) 82.7 % (42.0-75.0); RED BLOOD COUNT 5.15 X10^6/uL (4.7-6.0); RED CELL DISTRIBUTION WIDTH 14.6 % (11.6-16.5)
[2021-10-07 16:47] LABS: ABG BASE EXCESS -20.8 mmol/L (-2.0-2.0)
[2021-10-07] MEDS ORDERED: SODIUM BICARBONATE 8.4% INJ ADULT IVP ONE (16:47)
[2021-10-07] MEDS ORDERED: NovoLIN R (or HumuLIN R) IV ONE (16:47)
[2021-10-07 16:48] LABS: ABG ALLEN TEST POS; ABG HCO3 4.7 mmol/L (22-26)
[2021-10-07] MEDS ORDERED: MORPHINE SULFATE INJ 4 MG IVP ONE (16:48)
[2021-10-07] MEDS ORDERED: SODIUM BICARBONATE 8.4% INJ ADULT ONE (16:48)
[2021-10-07] MEDS ORDERED: MORPHINE SULFATE INJ 4 MG ONE (16:52)
[2021-10-07] MEDS ORDERED: NovoLIN R (or HumuLIN R) ONE ×2 (16:52→16:54)
[2021-10-07 16:54] LABS: WHITE BLOOD COUNT 36.7 X10^3/uL (3.6-10.0)
[2021-10-07 17:19] LABS: ALANINE AMINOTRANSFERASE 14 Units/L (12-78); ALBUMIN 3.8 g/dL (3.4-5.0); ALKALINE PHOSPHATASE 112 Units/L (46-116); ASPARTATE AMINO TRANSFERASE 15 Units/L (15-37); BLOOD UREA NITROGEN 31 mg/dL (7-18); CALCIUM 9.3 mg/dL (8.5-10.1); CHLORIDE 86 mmol/L (98-107); CKMB % 3.1 % (<4); CREATINE KINASE 62 Units/L (39-308); CREATINE KINASE MB 1.9 ng/mL (0-4.0); CREATININE 2.49 mg/dL (0.70-1.30); LIPASE 90 Units/L (73-393); SODIUM 128 mmol/L (136-145); TOTAL PROTEIN 7.8 g/dL (6.4-8.2); eGFR NON BLACK RACES 31 (>60)
[2021-10-07 17:42] LABS: CARBON DIOXIDE 7.3 mmol/L (21-32)
[2021-10-07 17:43] LABS: COR NA(FOR HYPERGLY) 144 mmol/L (136-145)
[2021-10-07 17:44] LABS: SERUM ACETONE MODERATE (NEGATIVE)
[2021-10-07] MEDS ORDERED: D50W ABBOJECT SYR IV PRN (17:55)
[2021-10-07] MEDS ORDERED: MYXREDLIN 100 UNIT/100 ML BAG 100 UNIT/100 ML PLAST..BAG IV PRN (17:55)
[2021-10-07] MEDS ORDERED: MYXREDLIN 100 UNIT/100 ML BAG 100 UNIT/100 ML PLAST..BAG IV ONE (18:11)
--- NOTE | 2021-10-07 18:53 | CT ---
HISTORYPT. STATES HE HAS BEEN SICK X 3 DAYS. PT. C/O NAUSEA, VOMITING, ELEVATED BLOOD SUGAR AND GENERALIZED BODY ACHES AND WEAKNESS.STUDYABDOMEN/PELVIS W/O CONCOMPARISONTECHNIQUEMultiple axial images of the abdomen and pelvis were obtained from the lung bases to the pubic symphysis without the administration of IV contrast. Dose reduction techniques including Automated Exposure Control (AEC) and adjustment of mA and kV were utilized.FINDINGSLung bases are clear without effusion. The heart size is normal. There is wall thickening in the distal esophagus suggesting reflux esophagitis. There is mild diffuse fatty infiltration of the liver. The gallbladder, pancreas, spleen, and adrenal glands are normal. Both kidneys are normal in size and there is no stone in either kidney. There is some mild fullness of the right ureter but no ureteral stone is identified. Small bowel loops and appendix are normal. The large bowel loops are normal. Urinary bladder and prostate are normal. There is no worrisome bone marrow lesion.IMPRESSION1. Mild fatty infiltration liver. 2. Wall thickening in the distal esophagus suggesting reflux esophagitis. 3. No evidence of urinary tract stone disease.Electronically signed by: Ji Vogel (Oct 07, 2021 18:52:24)
[2021-10-07] MEDS ORDERED: ROCEPHIN 1 GRAM IV PREMIX 1 G/50 ML IV.SOLN. IV ONE (19:35)
[2021-10-07] MEDS ORDERED: LOPRESSOR INJ 5 MG AMP IVP ONE (19:39)
[2021-10-07] MEDS ORDERED: LOPRESSOR INJ 5 MG AMP ONE (19:40)
[2021-10-07] MEDS ORDERED: ROCEPHIN VIAL 1 GRAM ONE (19:45)
[2021-10-07] MEDS ORDERED: NS 50 ML IV 50 ML IV ONE (19:46)
[2021-10-07] MEDS: NS 1,000 ML IV 1,000 ML IV SCH (20:18)
[2021-10-07] MEDS: SNACK - Diabetic Appropriate PO SCH (20:19)
[2021-10-07] MEDS: MORPHINE SULFATE INJ 4 MG IVP PRN (20:58)
[2021-10-07] MEDS: ZOFRAN INJ 4 MG VIAL IVP PRN (20:59)
[2021-10-07 21:01] VITALS: BMI 23.0
[2021-10-07 21:01] LABS: BILIRUBIN,URINE NEGATIVE (NEGATIVE); BLOOD/HEMOGLOBIN,URINE NEGATIVE (NEGATIVE); GLUCOSE, URINE 4+ (NEGATIVE); KETONES,URINE 4+ (NEGATIVE); LEUKOCYTE ESTERASE ,URINE NEGATIVE (NEGATIVE); NITRITES,URINE NEGATIVE (NEGATIVE); PROTEIN,URINE NEGATIVE (NEGATIVE); UROBILINOGEN,URINE NORMAL (NORMAL)
[2021-10-07 21:03] LABS: APPEARANCE,URINE CLEAR (CLEAR); COLOR,URINE PALE YELLOW (YELLOW)
[2021-10-07 21:07] LABS: CALCIUM 8.5 mg/dL (8.5-10.1); CARBON DIOXIDE 15.5 mmol/L (21-32); CREATININE 2.34 mg/dL (0.70-1.30)
[2021-10-07] MEDS ORDERED: NS 1/2 1,000 ML IV 1,000 ML IV ONE (21:18)
[2021-10-07] MEDS: NS 1/2 1,000 ML IV 1,000 ML IV SCH (21:20)
[2021-10-07] MEDS ORDERED: NS 1/2 + KCL 20 MEQ/L 1,000 ML IV SCH (22:00)
[2021-10-08 00:21] LABS: ABG BASE EXCESS -7.2 mmol/L (-2.0-2.0)
[2021-10-08 00:22] LABS: ABG ALLEN TEST POS; ABG HCO3 16.8 mmol/L (22-26)
[2021-10-08 00:45] LABS: CALCIUM 8.6 mg/dL (8.5-10.1); CARBON DIOXIDE 17.8 mmol/L (21-32); CREATININE 1.9 mg/dL (0.70-1.30)
[2021-10-08] MEDS: NS 1,000 ML IV 1,000 ML IV SCH ×4 (01:02→20:18)
[2021-10-08] MEDS: ZOFRAN INJ 4 MG VIAL IVP PRN ×5 (03:07→23:09)
[2021-10-08] MEDS: MORPHINE SULFATE INJ 4 MG IVP PRN ×6 (03:07→23:09)
[2021-10-08 04:57] LABS: ALBUMIN 3.1 g/dL (3.4-5.0); CALCIUM 8.4 mg/dL (8.5-10.1); CARBON DIOXIDE 19.3 mmol/L (21-32); COR CA(FOR HYPOALB) 9.1 mg/dL (8.5-10.1); CREATININE 1.66 mg/dL (0.70-1.30); TOTAL PROTEIN 6.7 g/dL (6.4-8.2)
[2021-10-08 05:05] LABS: BASOPHILS % (AUTO) 0.2 % (0.2-1.0); HEMATOCRIT 39.4 % (42.0-54.0); HEMOGLOBIN 13.1 g/dL (13.5-18.0); LYMPHOCYTES # (AUTO) 3.7 X10^3/uL (1.3-2.9); LYMPHOCYTES % (AUTO) 16.4 % (21.0-51.0); MEAN CORPUSCULAR HEMOGLOBIN 27.5 pg (27.0-34.0); MEAN CORPUSCULAR HGB CONC 33.3 g/dL (33.0-35.0); MEAN CORPUSCULAR VOLUME 82.7 fL (80.0-100.0); MEAN PLATELET VOLUME 8.6 fL (7.4-11.0); MONOCYTES # (AUTO) 2.1 x10^3/uL (0.3-0.8); MONOCYTES % (AUTO) 9.4 % (0.0-13.0); NEUTROPHILS # (AUTO) 16.6 x10^3/uL (2.2-4.8); RED BLOOD COUNT 4.76 X10^6/uL (4.7-6.0); RED CELL DISTRIBUTION WIDTH 13.9 % (11.6-16.5); WHITE BLOOD COUNT 22.5 X10^3/uL (3.6-10.0)
[2021-10-08] MEDS ORDERED: NS + KCL 20 MEQ/L 1,000 ML IV ONE (05:25)
[2021-10-08] MEDS: NS + KCL 20 MEQ/L 1,000 ML IV SCH ×4 (05:26→23:07)
[2021-10-08 05:49] LABS: BAND NEUTROPHILS % 2 % (0-10); PLATELET MORPHOLOGY COMMENT NORMAL (NORMAL)
[2021-10-08] MEDS: NS 1/2 1,000 ML IV 1,000 ML IV SCH ×2 (06:06→14:37)
[2021-10-08 08:36] LABS: BLOOD UREA NITROGEN 16 mg/dL (7-18); CARBON DIOXIDE 21.1 mmol/L (21-32); CHLORIDE 106 mmol/L (98-107); COR NA(FOR HYPERGLY) 142 mmol/L (136-145); CREATININE 1.34 mg/dL (0.70-1.30); SODIUM 140 mmol/L (136-145); eGFR NON BLACK RACES > 60 (>60)
[2021-10-08 08:46] LABS: ABG ALLEN TEST POS; ABG BASE EXCESS -2.8 mmol/L (-2.0-2.0); ABG HCO3 21.9 mmol/L (22-26)
[2021-10-08] MEDS ORDERED: ROCEPHIN 1 GRAM IV PREMIX 1 G/50 ML IV.SOLN. IV SCH (09:00)
[2021-10-08] MEDS: ROCEPHIN VIAL 1 GRAM 1 G in NS 100 ML IV 100 ML IV SCH (09:23)
[2021-10-08] MEDS: PROTONIX INJ 40 MG VIAL IVP SCH ×2 (11:05→20:19)
[2021-10-08 13:25] LABS: BLOOD UREA NITROGEN 13 mg/dL (7-18); CALCIUM 8.3 mg/dL (8.5-10.1); CARBON DIOXIDE 25.7 mmol/L (21-32); CHLORIDE 106 mmol/L (98-107); COR NA(FOR HYPERGLY) 143 mmol/L (136-145); SODIUM 140 mmol/L (136-145); eGFR NON BLACK RACES 60 (>60)
--- NOTE | 2021-10-08 13:46 | DR.H&P ---
H&P - History & Physical for Day of: H&P Date: 10/07/21 - Chief Complaint Chief Complaint: HIGH BLOOD SUGAR, N/V - History of Present Illness History of Present Illness: 40 y/o male brought in by EMS for elevated glucose, nausea/vomiting and weakness over the past 3 days. + h/o IDDM, h/o DKA in the past, unable to take anything by mouth. Glucose has been running high. Having generalized weakness, diffuse abdominal pain. Pain is sharp, wax/wanes, does not radiate. nothing makes it better, nothing makes it worsE - Past Medical History Past Medical History: Hypertension, Diabetes, Anxiety Additional Medical History: DKA, Gastroparesis, Chronic Low Back Pain With Radiculopathy, Pancreatitis, UTI's - Past Surgical History Surgical History: Other Additional Surgical History: [place] Teeth Surgically Removed - Family History Family Medical History: Diabetes Mellitus, Sudden Cardiac , Hypertension - Social History Does patient currently use any type of tobacco product: Yes Have you used tobacco products in the last 12 months: Yes Type of Tobacco Use: Cigarettes Does any household member use tobacco: Yes Alcohol Use: None Drug Use: Prescription Drugs - Medications Home Medications: No Known Drug Allergies Allergy (Verified 10/07/21 16:28) CONTINUE taking the following medications metoprolol succinate 25 mg PO BID 10/08/21 [History] promethazine 25 mg PO Q6H PRN 10/08/21 [History] - Review of Systems Constitutional: Weakness, Malaise Eyes: No Symptoms Reported ENT: No Symptoms Reported Respiratory: No Symptoms Reported Cardiovascular: Palpitations Gastrointestinal: Nausea, Vomiting, Abdominal Pain Genitourinary: No Symptoms Reported Musculoskeletal: Back Pain, Leg Pain Skin: No Symptoms Reported Neurological: Weakness - Physical Exam Vital Signs: Temperature 98.5 F Pulse Rate [Apical] 140 Pulse Rate 107 Respiratory Rate 14 Blood Pressure [Left Arm] 133/84 Blood Pressure [Right Arm] 132/81 Blood Pressure 142/84 O2 Sat by Pulse Oximetry 100 Oriented: Normal Eyes: Normal Ear: Normal Nose: Normal Throat: Normal Respiratory: RLL Diminished, LLL Diminished Cardiovascular: Tachycardia : Normal Auscultation: Bowel Sounds: Decreased Tenderness: Diffuse, Mild Skin: Decreased Turgur Musculoskeletal: Back:Lumbar Psychiatric: Anxiety Affect: Anxious Speech Pattern: Clear, Appropriate - Assessment/Plan (1) DKA (diabetic ketoacidosis) Qualifiers: Diabetes mellitus type: type 1 Diabetes mellitus complication detail: without coma Qualified Code(s): E10.10 - Type 1 diabetes mellitus with ketoacidosis without coma Status: Acute Plan: ADMIT, ICU, INSULIN DRIP PER PROTOCOL. STRICT I&OS, CARDIAC MONITORING. IV HYDRATION, SERIAL BMP, ABG ON ADMISSION. CT ABD/PELVIS OBTAINED IN ER. IV ATBX, PAIN CONTROL. PPI THERAPY (2) Abdominal pain Status: Acute (3) Dehydration Status: Acute - Allergies Allergies/Adverse Reactions: Allergies Allergy/AdvReac Type Severity Reaction Status Date / Time No Known Drug Allergies Allergy Verified 10/07/21 16:28
[2021-10-08] MEDS: PHENERGAN INJ 25 MG IM PRN ×2 (14:35→21:15)
[2021-10-08 16:56] LABS: BLOOD UREA NITROGEN 10 mg/dL (7-18); CALCIUM 8.1 mg/dL (8.5-10.1); CARBON DIOXIDE 25.1 mmol/L (21-32); CHLORIDE 108 mmol/L (98-107); COR NA(FOR HYPERGLY) 142 mmol/L (136-145); CREATININE 1.24 mg/dL (0.70-1.30); SODIUM 141 mmol/L (136-145); eGFR NON BLACK RACES > 60 (>60)
[2021-10-08] MEDS: SNACK - Diabetic Appropriate PO SCH (20:18)
[2021-10-08] MEDS: NovoLIN R (or HumuLIN R) SUBCUT PRN (20:23)
[2021-10-09] MEDS ORDERED: METHADONE HCL PO ONE ×2 (01:13→07:52)
[2021-10-09] MEDS: NS + KCL 20 MEQ/L 1,000 ML IV SCH ×2 (01:20→05:41)
[2021-10-09] MEDS: XANAX PO PRN ×2 (01:32→08:04)
[2021-10-09] MEDS: MORPHINE SULFATE INJ 4 MG IVP PRN (03:33)
[2021-10-09] MEDS: ZOFRAN INJ 4 MG VIAL IVP PRN ×2 (03:36→08:05)
[2021-10-09 05:10] LABS: BASOPHILS # (AUTO) 0.1 X10^3/uL (0.0-0.1); EOSINOPHILS % (AUTO) 0.1 % (0.9-2.9); HEMOGLOBIN 11.8 g/dL (13.5-18.0); NEUTROPHILS # (AUTO) 12.9 x10^3/uL (2.2-4.8); RED BLOOD COUNT 4.32 X10^6/uL (4.7-6.0)
[2021-10-09 05:23] LABS: BASOPHILS % (AUTO) 0.4 % (0.2-1.0); HEMATOCRIT 35.9 % (42.0-54.0); LYMPHOCYTES % (AUTO) 17.7 % (21.0-51.0); MEAN CORPUSCULAR HEMOGLOBIN 27.4 pg (27.0-34.0); MEAN PLATELET VOLUME 8.4 fL (7.4-11.0); MONOCYTES % (AUTO) 5.7 % (0.0-13.0); NEUTROPHILS % (AUTO) 76.1 % (42.0-75.0); WHITE BLOOD COUNT 16.9 X10^3/uL (3.6-10.0)
[2021-10-09 05:26] LABS: ALANINE AMINOTRANSFERASE 20 Units/L (12-78); ALBUMIN 3.3 g/dL (3.4-5.0); ALKALINE PHOSPHATASE 82 Units/L (46-116); ASPARTATE AMINO TRANSFERASE 26 Units/L (15-37); BLOOD UREA NITROGEN 5 mg/dL (7-18); CALCIUM 8.6 mg/dL (8.5-10.1); CARBON DIOXIDE 20.8 mmol/L (21-32); CHLORIDE 103 mmol/L (98-107); COR CA(FOR HYPOALB) 9.2 mg/dL (8.5-10.1); COR NA(FOR HYPERGLY) 140 mmol/L (136-145); CREATININE 1.05 mg/dL (0.70-1.30); MAGNESIUM 1.5 mg/dL (1.7-2.9); SODIUM 137 mmol/L (136-145); TOTAL PROTEIN 6.7 g/dL (6.4-8.2); eGFR NON BLACK RACES > 60 (>60)
[2021-10-09] MEDS ORDERED: MAGNESIUM SULFATE 1 GRAM/100 mL PREMIX 1 G/100 ML BAG IV PRN (05:40)
[2021-10-09] MEDS: NovoLIN R (or HumuLIN R) SUBCUT PRN ×2 (05:43→11:38)
[2021-10-09] MEDS ORDERED: MORPHINE SULFATE INJ 2 MG INJ IVP PRN (07:41)
[2021-10-09] MEDS ORDERED: NovoLIN N or HumuLIN N SC ONE (07:53)
[2021-10-09] MEDS: METHADONE HCL PO SCH ×2 (08:02→12:21)
[2021-10-09] MEDS: ROCEPHIN VIAL 1 GRAM 1 G in NS 100 ML IV 100 ML IV SCH (08:03)
[2021-10-09] MEDS: PROTONIX INJ 40 MG VIAL IVP SCH (08:03)
[2021-10-09] MEDS ORDERED: NovoLIN N or HumuLIN N SC SCH (09:00)
[2021-10-09 13:08] VITALS: BP 146/84
[2021-10-09] MEDS ORDERED: SNACK - Diabetic Appropriate PO SCH (20:00)
--- NOTE | 2021-10-09 20:16 | W.DIS.FURT ---
Summary of Discharge Discharge Summary of Date Date of Exam: 10/09/21 Admission Date Date of Admission: 10/07/21 Admission Diagnosis Patient Problems (Updated 10/09/21 @ 20:15 by Ann Lara) DKA (diabetic ketoacidosis) (Acute) E11.10 Abdominal pain (Acute) R10.9 Dehydration (Acute) E86.0 Hospital Course: Mr Qureshi is a 40 y/o male with recurrent admissions has a PMH of uncontrolled diabetes, chronic pain and anxiety and HTN was admitted for DKA management. He was started on hydration and insulin drip. His labs were monitored frequently and electrolytes replaced as needed. Patient's FSBG improved and his AG resolved so he was transitioned to SSI and NPH. Patient's home medications including methadone and xanax were resumed. Patient decided to sign out AMA and left without proper discharge. Vital Signs: Vital Signs (72 hours) 10/07/21 16:27 10/07/21 16:28 10/07/21 16:30 Temperature 99.2 F Pulse Rate 150 H 150 H 149 H Pulse Rate [Apical] Respiratory Rate 31 H 32 H 30 H Blood Pressure 119/63 134/78 O2 Sat by Pulse Oximetry 97 97 97 10/07/21 16:45 10/07/21 16:54 10/07/21 17:00 Temperature Pulse Rate 150 H 146 H Pulse Rate [Apical] Respiratory Rate 25 H 27 H 29 H Blood Pressure 112/54 O2 Sat by Pulse Oximetry 97 96 10/07/21 17:15 10/07/21 17:24 10/07/21 17:30 Temperature Pulse Rate 144 H 143 H Pulse Rate [Apical] Respiratory Rate 26 H 20 23 Blood Pressure 116/79 O2 Sat by Pulse Oximetry 94 L 100 10/07/21 17:45 10/07/21 18:00 10/07/21 18:15 Temperature Pulse Rate 145 H 143 H 143 H Pulse Rate [Apical] Respiratory Rate 20 33 H 40 H Blood Pressure 139/71 O2 Sat by Pulse Oximetry 100 98 100 10/07/21 18:30 10/07/21 19:30 10/07/21 19:45 Temperature 98.7 F Pulse Rate 144 H 153 H Pulse Rate [Apical] 140 H Respiratory Rate 21 14 22 Blood Pressure 159/78 132/79 O2 Sat by Pulse Oximetry 96 99 10/07/21 19:50 10/07/21 20:00 10/07/21 20:58 Temperature Pulse Rate 116 H Pulse Rate [Apical] Respiratory Rate 25 H 15 Blood Pressure 137/87 135/83 O2 Sat by Pulse Oximetry 100 10/07/21 21:00 10/07/21 21:28 10/07/21 21:30 Temperature Pulse Rate 117 H 117 H Pulse Rate [Apical] Respiratory Rate 17 16 17 Blood Pressure 152/87 O2 Sat by Pulse Oximetry 100 95 10/07/21 21:45 10/07/21 22:00 10/07/21 22:15 Temperature Pulse Rate 113 H 113 H 113 H Pulse Rate [Apical] Respiratory Rate 18 20 17 Blood Pressure 120/77 O2 Sat by Pulse Oximetry 96 96 96 10/07/21 22:30 10/07/21 22:45 10/07/21 23:00 Temperature 98.5 F Pulse Rate 111 H 110 H 109 H Pulse Rate [Apical] Respiratory Rate 16 15 14 Blood Pressure 106/64 O2 Sat by Pulse Oximetry 96 98 97 10/07/21 23:15 10/07/21 23:30 10/07/21 23:45 Temperature Pulse Rate 109 H 110 H 106 H Pulse Rate [Apical] Respiratory Rate 15 16 16 Blood Pressure O2 Sat by Pulse Oximetry 98 98 97 10/08/21 00:00 10/08/21 00:01 10/08/21 00:15 Temperature Pulse Rate 112 H 113 H 112 H Pulse Rate [Apical] Respiratory Rate 16 15 15 Blood Pressure 123/80 123/80 O2 Sat by Pulse Oximetry 97 96 96 10/08/21 00:30 10/08/21 00:45 10/08/21 01:00 Temperature Pulse Rate 110 H 109 H 108 H Pulse Rate [Apical] Respiratory Rate 17 15 14 Blood Pressure 107/64 O2 Sat by Pulse Oximetry 96 98 97 10/08/21 01:15 10/08/21 01:30 10/08/21 01:45 Temperature Pulse Rate 108 H 103 H 102 H Pulse Rate [Apical] Respiratory Rate 20 21 16 Blood Pressure O2 Sat by Pulse Oximetry 97 98 99 10/08/21 02:00 10/08/21 02:15 10/08/21 02:30 Temperature Pulse Rate 101 H 105 H 106 H Pulse Rate [Apical] Respiratory Rate 15 17 16 Blood Pressure 119/86 O2 Sat by Pulse Oximetry 97 97 96 10/08/21 02:45 10/08/21 03:00 10/08/21 03:07 Temperature Pulse Rate 108 H 110 H Pulse Rate [Apical] Respiratory Rate 14 23 15 Blood Pressure 153/92 O2 Sat by Pulse Oximetry 98 98 10/08/21 03:15 10/08/21 03:30 10/08/21 03:37 Temperature Pulse Rate 111 H 105 H Pulse Rate [Apical] Respiratory Rate 16 9 L 14 Blood Pressure O2 Sat by Pulse Oximetry 97 96 10/08/21 03:45 10/08/21 04:00 10/08/21 04:15 Temperature Pulse Rate 107 H 106 H 104 H Pulse Rate [Apical] Respiratory Rate 8 L 15 15 Blood Pressure 110/62 O2 Sat by Pulse Oximetry 95 97 100 10/08/21 04:30 10/08/21 04:45 10/08/21 05:00 Temperature 98.5 F Pulse Rate 103 H 99 H 106 H Pulse Rate [Apical] Respiratory Rate 15 15 15 Blood Pressure 147/82 O2 Sat by Pulse Oximetry 97 97 96 10/08/21 05:15 10/08/21 05:30 10/08/21 05:45 Temperature Pulse Rate 104 H 104 H 107 H Pulse Rate [Apical] Respiratory Rate 16 16 15 Blood Pressure O2 Sat by Pulse Oximetry 97 96 96 10/08/21 06:00 10/08/21 06:15 10/08/21 06:30 Temperature Pulse Rate 106 H 107 H 102 H Pulse Rate [Apical] Respiratory Rate 16 18 10 L Blood Pressure 132/78 O2 Sat by Pulse Oximetry 97 95 99 10/08/21 06:45 10/08/21 07:00 10/08/21 07:15 Temperature Pulse Rate 99 H 102 H 103 H Pulse Rate [Apical] Respiratory Rate 13 5 L 10 L Blood Pressure 122/78 O2 Sat by Pulse Oximetry 98 99 99 10/08/21 07:27 10/08/21 07:30 10/08/21 07:45 Temperature Pulse Rate 114 H 100 H Pulse Rate [Apical] Respiratory Rate 9 L 32 H 15 Blood Pressure O2 Sat by Pulse Oximetry 98 96 10/08/21 07:57 10/08/21 08:00 10/08/21 08:15 Temperature Pulse Rate 100 H 106 H Pulse Rate [Apical] Respiratory Rate 10 L 14 8 L Blood Pressure 130/82 O2 Sat by Pulse Oximetry 96 100 10/08/21 08:30 10/08/21 08:45 10/08/21 09:00 Temperature Pulse Rate 104 H 112 H 104 H Pulse Rate [Apical] Respiratory Rate 10 L 40 H 15 Blood Pressure 121/76 O2 Sat by Pulse Oximetry 100 99 96 10/08/21 09:15 10/08/21 09:30 10/08/21 09:45 Temperature Pulse Rate 108 H 108 H 107 H Pulse Rate [Apical] Respiratory Rate 19 17 14 Blood Pressure O2 Sat by Pulse Oximetry 98 99 99 10/08/21 10:00 10/08/21 10:15 10/08/21 10:30 Temperature Pulse Rate 108 H 105 H 103 H Pulse Rate [Apical] Respiratory Rate 20 16 12 Blood Pressure 107/58 O2 Sat by Pulse Oximetry 95 99 96 10/08/21 10:45 10/08/21 11:00 10/08/21 11:01 Temperature Pulse Rate 107 H 109 H 112 H Pulse Rate [Apical] Respiratory Rate 8 L 12 19 Blood Pressure 139/88 O2 Sat by Pulse Oximetry 97 99 100 10/08/21 11:10 10/08/21 11:15 10/08/21 11:30 Temperature Pulse Rate 107 H 106 H Pulse Rate [Apical] Respiratory Rate 10 L 15 17 Blood Pressure O2 Sat by Pulse Oximetry 98 98 10/08/21 11:40 10/08/21 11:45 10/08/21 12:00 Temperature Pulse Rate 109 H 108 H Pulse Rate [Apical] Respiratory Rate 8 L 16 12 Blood Pressure 123/77 O2 Sat by Pulse Oximetry 98 97 10/08/21 12:15 10/08/21 12:30 10/08/21 12:45 Temperature Pulse Rate 108 H 109 H 107 H Pulse Rate [Apical] Respiratory Rate 9 L 9 L 18 Blood Pressure O2 Sat by Pulse Oximetry 100 97 99 10/08/21 13:00 10/08/21 13:15 10/08/21 13:30 Temperature Pulse Rate 107 H 106 H 104 H Pulse Rate [Apical] Respiratory Rate 14 16 11 L Blood Pressure 142/84 O2 Sat by Pulse Oximetry 100 98 97 10/08/21 13:45 10/08/21 14:00 10/08/21 14:15 Temperature Pulse Rate 107 H 104 H 104 H Pulse Rate [Apical] Respiratory Rate 10 L 10 L 10 L Blood Pressure O2 Sat by Pulse Oximetry 99 98 98 10/08/21 14:30 10/08/21 14:45 10/08/21 15:00 Temperature Pulse Rate 104 H 103 H 101 H Pulse Rate [Apical] Respiratory Rate 39 H 13 13 Blood Pressure 149/96 O2 Sat by Pulse Oximetry 100 99 99 10/08/21 15:07 10/08/21 15:15 10/08/21 15:30 Temperature Pulse Rate 101 H 100 H Pulse Rate [Apical] Respiratory Rate 12 11 L 11 L Blood Pressure O2 Sat by Pulse Oximetry 98 97 10/08/21 15:37 10/08/21 15:45 10/08/21 16:00 Temperature Pulse Rate 101 H 100 H Pulse Rate [Apical] Respiratory Rate 13 11 L 9 L Blood Pressure 134/80 O2 Sat by Pulse Oximetry 98 97 10/08/21 16:15 10/08/21 16:30 10/08/21 16:45 Temperature Pulse Rate 101 H 101 H 97 H Pulse Rate [Apical] Respiratory Rate 10 L 18 15 Blood Pressure O2 Sat by Pulse Oximetry 99 97 99 10/08/21 17:00 10/08/21 17:15 10/08/21 17:30 Temperature Pulse Rate 99 H 99 H 99 H Pulse Rate [Apical] Respiratory Rate 9 L 13 14 Blood Pressure 124/67 O2 Sat by Pulse Oximetry 98 97 97 10/08/21 17:45 10/08/21 18:00 10/08/21 19:00 Temperature 98.3 F Pulse Rate 95 H 99 H 100 H Pulse Rate [Apical] Respiratory Rate 14 17 10 L Blood Pressure 130/84 143/91 O2 Sat by Pulse Oximetry 96 97 97 10/08/21 19:20 10/08/21 19:50 10/08/21 20:00 Temperature Pulse Rate 100 H Pulse Rate [Apical] Respiratory Rate 12 13 10 L Blood Pressure 132/85 O2 Sat by Pulse Oximetry 97 10/08/21 20:59 10/08/21 22:00 10/08/21 23:00 Temperature Pulse Rate 96 H 92 H 107 H Pulse Rate [Apical] Respiratory Rate 13 12 17 Blood Pressure 157/87 148/91 150/93 O2 Sat by Pulse Oximetry 98 98 96 10/08/21 23:03 10/08/21 23:09 10/08/21 23:15 Temperature Pulse Rate 104 H 93 H Pulse Rate [Apical] Respiratory Rate 19 13 11 L Blood Pressure 150/93 O2 Sat by Pulse Oximetry 98 97 10/08/21 23:30 10/08/21 23:39 10/08/21 23:45 Temperature Pulse Rate 90 87 Pulse Rate [Apical] Respiratory Rate 17 13 15 Blood Pressure O2 Sat by Pulse Oximetry 96 95 10/09/21 00:00 10/09/21 00:15 10/09/21 00:30 Temperature 98.4 F Pulse Rate 92 H 94 H 93 H Pulse Rate [Apical] Respiratory Rate 16 6 L 14 Blood Pressure 132/89 O2 Sat by Pulse Oximetry 94 L 97 97 10/09/21 00:45 10/09/21 01:00 10/09/21 01:15 Temperature Pulse Rate 97 H 100 H 102 H Pulse Rate [Apical] Respiratory Rate 12 12 15 Blood Pressure 134/77 O2 Sat by Pulse Oximetry 99 97 99 10/09/21 01:30 10/09/21 01:31 10/09/21 01:45 Temperature Pulse Rate 101 H 96 H Pulse Rate [Apical] Respiratory Rate 17 13 13 Blood Pressure O2 Sat by Pulse Oximetry 98 99 10/09/21 02:00 10/09/21 02:15 10/09/21 02:30 Temperature Pulse Rate 96 H 91 H 93 H Pulse Rate [Apical] Respiratory Rate 10 L 11 L 12 Blood Pressure 126/78 O2 Sat by Pulse Oximetry 98 98 98 10/09/21 02:31 10/09/21 02:45 10/09/21 03:00 Temperature Pulse Rate 84 86 Pulse Rate [Apical] Respiratory Rate 13 17 15 Blood Pressure 155/90 O2 Sat by Pulse Oximetry 96 95 10/09/21 03:15 10/09/21 03:30 10/09/21 03:33 Temperature Pulse Rate 90 91 H Pulse Rate [Apical] Respiratory Rate 15 8 L 15 Blood Pressure O2 Sat by Pulse Oximetry 96 99 10/09/21 03:45 10/09/21 04:00 10/09/21 04:03 Temperature 98.4 F Pulse Rate 91 H 92 H Pulse Rate [Apical] Respiratory Rate 13 10 L 14 Blood Pressure 144/89 O2 Sat by Pulse Oximetry 98 99 10/09/21 04:15 10/09/21 04:30 10/09/21 04:45 Temperature Pulse Rate 89 91 H 91 H Pulse Rate [Apical] Respiratory Rate 8 L 12 12 Blood Pressure O2 Sat by Pulse Oximetry 97 96 98 10/09/21 05:00 10/09/21 05:15 10/09/21 05:30 Temperature Pulse Rate 92 H 86 84 Pulse Rate [Apical] Respiratory Rate 6 L 16 16 Blood Pressure 156/90 O2 Sat by Pulse Oximetry 98 97 96 10/09/21 05:45 10/09/21 06:00 10/09/21 06:15 Temperature Pulse Rate 92 H 91 H 87 Pulse Rate [Apical] Respiratory Rate 13 13 11 L Blood Pressure 162/98 O2 Sat by Pulse Oximetry 97 99 99 10/09/21 06:30 10/09/21 06:45 10/09/21 07:00 Temperature Pulse Rate 88 85 92 H Pulse Rate [Apical] Respiratory Rate 16 16 11 L Blood Pressure 134/84 O2 Sat by Pulse Oximetry 98 98 96 10/09/21 07:15 10/09/21 07:30 10/09/21 07:45 Temperature Pulse Rate 89 92 H 99 H Pulse Rate [Apical] Respiratory Rate 20 10 L 23 Blood Pressure O2 Sat by Pulse Oximetry 96 100 99 10/09/21 08:00 10/09/21 08:02 10/09/21 08:15 Temperature Pulse Rate 101 H 98 H Pulse Rate [Apical] Respiratory Rate 10 L 18 10 L Blood Pressure 169/98 O2 Sat by Pulse Oximetry 99 98 10/09/21 08:30 10/09/21 08:45 10/09/21 09:00 Temperature 97.8 F Pulse Rate 96 H 99 H 97 H Pulse Rate [Apical] Respiratory Rate 15 18 11 L Blood Pressure 152/88 O2 Sat by Pulse Oximetry 98 96 96 10/09/21 09:02 10/09/21 09:15 10/09/21 09:30 Temperature Pulse Rate 93 H 93 H Pulse Rate [Apical] Respiratory Rate 20 14 14 Blood Pressure O2 Sat by Pulse Oximetry 98 96 10/09/21 09:45 10/09/21 10:00 10/09/21 10:15 Temperature Pulse Rate 93 H 98 H 86 Pulse Rate [Apical] Respiratory Rate 15 15 14 Blood Pressure 139/97 O2 Sat by Pulse Oximetry 96 96 97 10/09/21 10:30 10/09/21 10:45 10/09/21 11:00 Temperature Pulse Rate 96 H 95 H 88 Pulse Rate [Apical] Respiratory Rate 9 L 21 9 L Blood Pressure 158/95 O2 Sat by Pulse Oximetry 97 96 96 10/09/21 11:15 10/09/21 11:30 10/09/21 11:47 Temperature Pulse Rate 94 H 102 H 86 Pulse Rate [Apical] Respiratory Rate 14 18 12 Blood Pressure O2 Sat by Pulse Oximetry 96 99 98 10/09/21 12:00 10/09/21 12:15 10/09/21 12:21 Temperature 97.1 F L Pulse Rate 99 H 104 H Pulse Rate [Apical] Respiratory Rate 16 11 L 20 Blood Pressure 170/101 O2 Sat by Pulse Oximetry 98 99 10/09/21 12:30 10/09/21 12:45 10/09/21 13:00 Temperature Pulse Rate 97 H 104 H 109 H Pulse Rate [Apical] Respiratory Rate 10 L 11 L 11 L Blood Pressure 146/84 O2 Sat by Pulse Oximetry 98 96 97 10/09/21 13:21 Temperature Pulse Rate Pulse Rate [Apical] Respiratory Rate 20 Blood Pressure O2 Sat by Pulse Oximetry Labs: Laboratory Last Values WBC 16.9 X10^3/uL (3.6-10.0) H 10/09/21 04:46 RBC 4.32 X10^6/uL (4.7-6.0) L 10/09/21 04:46 Hgb 11.8 g/dL (13.5-18.0) L 10/09/21 04:46 Hct 35.9 % (42.0-54.0) L 10/09/21 04:46 MCV 83.0 fL (80.0-100.0) 10/09/21 04:46 MCH 27.4 pg (27.0-34.0) 10/09/21 04:46 MCHC 33.0 g/dL (33.0-35.0) 10/09/21 04:46 RDW 14.0 % (11.6-16.5) 10/09/21 04:46 Plt Count 202 X10^3/uL (150.0-450.0) 10/09/21 04:46 Plt Count Comment Adequate (ADEQUATE) 10/08/21 03:55 MPV 8.4 fL (7.4-11.0) 10/09/21 04:46 Neut % (Auto) 76.1 % (42.0-75.0) H 10/09/21 04:46 Lymph % (Auto) 17.7 % (21.0-51.0) L 10/09/21 04:46 Johnston % (Auto) 5.7 % (0.0-13.0) 10/09/21 04:46 Eos % (Auto) 0.1 % (0.9-2.9) L 10/09/21 04:46 Baso % (Auto) 0.4 % (0.2-1.0) 10/09/21 04:46 Neut # (Auto) 12.9 x10^3/uL (2.2-4.8) H 10/09/21 04:46 Lymph # (Auto) 3.0 X10^3/uL (1.3-2.9) H 10/09/21 04:46 Johnston # (Auto) 1.0 x10^3/uL (0.3-0.8) H 10/09/21 04:46 Eos # (Auto) 0.0 x10^3/uL (0.0-0.2) 10/09/21 04:46 Baso # (Auto) 0.1 X10^3/uL (0.0-0.1) 10/09/21 04:46 Absolute Nucleated RBC 0.0 /100WBC 10/09/21 04:46 Total Counted 100 10/08/21 03:55 Neutrophils % (Manual) 77 % (39-76) H 10/08/21 03:55 Band Neutrophils % 2 % (0-10) 10/08/21 03:55 Lymphocytes % (Manual) 14 % (13-43) 10/08/21 03:55 Monocytes % (Manual) 7 % (4-9) 10/08/21 03:55 Plt Morphology Comment Normal (NORMAL) 10/08/21 03:55 RBC Morphology Normal (NORMAL) 10/08/21 03:55 Sample Site Rrad 10/08/21 08:39 ABG pH 7.380 (7.35-7.45) 10/08/21 08:39 ABG pCO2 37.0 mmHg (35.0-45.0) 10/08/21 08:39 ABG pO2 84.0 mmHg (80.0-100.0) 10/08/21 08:39 ABG HCO3 21.9 mmol/L (22-26) L 10/08/21 08:39 ABG O2 Saturation 96.0 % (90-100) 10/08/21 08:39 ABG Base Excess -2.8 mmol/L (-2.0-2.0) L 10/08/21 08:39 Geoff Test Pos 10/08/21 08:39 A-a Gradient 19.0 mmHg 10/08/21 08:39 FiO2 21.0 10/08/21 08:39 Blood Gas Comments Pt reece well elj 10/08/21 08:39 Sodium 137 mmol/L (136-145) 10/09/21 04:46 Corrected Sodium 140 mmol/L (136-145) 10/09/21 04:46 Potassium 4.2 mmol/L (3.5-5.1) 10/09/21 04:46 Chloride 103 mmol/L (98-107) 10/09/21 04:46 Carbon Dioxide 20.8 mmol/L (21-32) L 10/09/21 04:46 BUN 5 mg/dL (7-18) L 10/09/21 04:46 Creatinine 1.05 mg/dL (0.70-1.30) 10/09/21 04:46 Est GFR (MDRD) Af Amer > 60 (>60) 10/09/21 04:46 Est GFR (MDRD) Non-Af > 60 (>60) 10/09/21 04:46 Glucose 235 mg/dL (65-99) H 10/09/21 04:46 POC Glucose (mg/dL) 237 mg/dL (65-99) H 10/09/21 11:32 Calcium 8.6 mg/dL (8.5-10.1) 10/09/21 04:46 Corrected Calcium 9.2 mg/dL (8.5-10.1) 10/09/21 04:46 Magnesium 1.5 mg/dL (1.7-2.9) L 10/09/21 04:46 Total Bilirubin 0.70 mg/dL (0.2-1.0) 10/09/21 04:46 AST 26 Units/L (15-37) 10/09/21 04:46 ALT 20 Units/L (12-78) 10/09/21 04:46 Alkaline Phosphatase 82 Units/L (46-116) 10/09/21 04:46 Creatine Kinase 62 Units/L (39-308) 10/07/21 16:30 CK-MB (CK-2) 1.9 ng/mL (0-4.0) 10/07/21 16:30 CK/CKMB % Calc 3.1 % (<4) 10/07/21 16:30 Troponin I High Sens 9.4 ng/L (4.0-60.0) 10/07/21 16:30 Total Protein 6.7 g/dL (6.4-8.2) 10/09/21 04:46 Albumin 3.3 g/dL (3.4-5.0) L 10/09/21 04:46 Globulin 3.4 g/dL (2.5-4.5) 10/09/21 04:46 Albumin/Globulin Ratio 1.0 Ratio (1.1-2.1) L 10/09/21 04:46 Lipase 90 Units/L (73-393) 10/07/21 16:30 Specimen Type Clean catch urine 10/07/21 20:45 Urine Color Pale yellow (YELLOW) 10/07/21 20:45 Urine Appearance Clear (CLEAR) 10/07/21 20:45 Urine pH 5.0 (5.0 - 8.0) 10/07/21 20:45 Ur Specific [place] 1.015 (1.000-1.030) 10/07/21 20:45 Urine Protein Negative (NEGATIVE) 10/07/21 20:45 Urine Glucose (UA) 4+ (NEGATIVE) 10/07/21 20:45 Urine Ketones 4+ (NEGATIVE) 10/07/21 20:45 Urine Blood Negative (NEGATIVE) 10/07/21 20:45 Urine Nitrite Negative (NEGATIVE) 10/07/21 20:45 Urine Bilirubin Negative (NEGATIVE) 10/07/21 20:45 Urine Urobilinogen Normal (NORMAL) 10/07/21 20:45 Ur Leukocyte Esterase Negative (NEGATIVE) 10/07/21 20:45 Acetone, Semi-Quant Small (NEGATIVE) H 10/08/21 10:50 SARS-CoV-2 (PCR) Negative (NEGATIVE) 10/07/21 18:31 Reason For Visit: DKA Discharge Date Discharge Date: 10/09/21 Discharge Diagnosis All Active Problems (Updated 10/09/21 @ 20:15 by Ann Lara) DKA (diabetic ketoacidosis) (Acute) Abdominal pain (Acute) Opioid dependence (Chronic) Anemia (Chronic) Pneumonia (Acute) Sepsis (Acute) Dehydration (Acute) Renal failure (Acute) Gastroparesis due to DM (Chronic) Acute hyperglycemia (Acute) Metabolic acidosis due to diabetes mellitus (Acute) Hypokalemia (Acute) DVT (deep venous thrombosis) (Chronic) Leukocytosis (Acute) Constipation (Chronic) Type I diabetes mellitus (Chronic) Essential hypertension, benign (Chronic) Thoracic or lumbosacral neuritis or radiculitis (Chronic) GERD (gastroesophageal reflux disease) (Chronic) Low back pain (Chronic) Anxiety (Chronic) Plan of Treatment: Continue with present treatment and follow up plan. Pt is to keep follow up appointment as instructed and take medications as ordered. Discharge Medications Discharge Medications: No Known Drug Allergies Allergy (Verified 10/07/21 16:28) CONTINUE taking the following medications metoprolol succinate 25 mg PO BID 10/08/21 [History] promethazine 25 mg PO Q6H PRN 10/08/21 [History] Discharge Disposition Discharge Disposition: Patient left AMA. Discharge Condition: Patient left AMA. Discharge Plan Discharge Plan Hospital Course: Mr Qureshi is a 40 y/o male with recurrent admissions has a PMH of uncontrolled diabetes, chronic pain and anxiety and HTN was admitted for DKA management. He was started on hydration and insulin drip. His labs were monitored frequently and electrolytes replaced as needed. Patient's FSBG improved and his AG resolved so he was transitioned to SSI and NPH. Patient's home medications including methadone and xanax were resumed. Patient decided to sign out AMA and left without proper discharge. Patient Disposition: AGAINST MEDICAL ADVICE Condition: Stable Health Concerns: Post Hospitalization: new medications and changes needed to prevent readmission or further decline. Pt educated and given instructions on all concerns. Plan of Treatment: Continue with present treatment and follow up plan. Pt is to keep follow up appointment as instructed and take medications as ordered. Prescriptions: No Action alprazolam 0.5 mg tablet 0.5 mg PO TID PRNRF: 0 duloxetine 30 mg capsule,delayed release(DR/EC) 30 mg PO DAILY RF: 0 promethazine 25 mg Tablet 25 mg PO Q6H PRNRF: 0 metoprolol succinate 25 mg Tablet Extended Release 24 Hr 25 mg PO BID RF: 0 trazodone 50 mg Tablet 50 mg PO HS RF: 0 lisinopril 10 mg Tablet 10 mg PO HS RF: 0 Novolin R Regular U-100 Insuln 100 unit/mL Solution 5 unit subcut AC RF: 0 methadone 10 mg Tablet 10 mg PO QID RF: 0 famotidine 20 mg tablet 20 mg PO BID RF: 0 Novolin N NPH U-100 Insulin 100 unit/mL suspension 20 unit SUBCUT BID RF: 0 Xarelto 20 mg tablet 20 mg PO DAILY RF: 0 Linzess 145 mcg capsule 145 mcg PO DAILY RF: 0 Follow ups/Referrals Follow ups/Referrals: NFD,None [Primary Care Provider] - 1 WEEK
== END 2021-10-09 14:18 | disposition left against medical advice (07) | DRG 639 ==
LOC: ER 16:18 → ICU 18:04
PROVIDERS: ADMIT Internal Medicine; ATTEND Internal Medicine
DX: R53.1 Weakness; E10.10 Type 1 diabetes mellitus with ketoacidosis without coma; K20.80 Other esophagitis without bleeding; R11.2 Nausea with vomiting, unspecified; F41.8 Other specified anxiety disorders; R94.31 Abnormal electrocardiogram [ECG] [EKG]; R10.84 Generalized abdominal pain; E86.0 Dehydration; I10 Essential (primary) hypertension; Z53.29 Procedure and treatment not carried out because of patient's decision for other reasons; Z20.822 Contact with and (suspected) exposure to COVID-19

== ENCOUNTER 2022-01-29 06:49 | Inpatient (IN) ==
[2022-01-29 07:26] LABS: BASOPHILS # (AUTO) 0.1 X10^3/uL (0.0-0.1); BASOPHILS % (AUTO) 0.2 % (0.2-1.0); EOSINOPHILS % (AUTO) 0.1 % (0.9-2.9); HEMATOCRIT 43.1 % (42.0-54.0); HEMOGLOBIN 14.1 g/dL (13.5-18.0); LYMPHOCYTES # (AUTO) 3.8 X10^3/uL (1.3-2.9); LYMPHOCYTES % (AUTO) 13.3 % (21.0-51.0); MEAN CORPUSCULAR HEMOGLOBIN 27.8 pg (27.0-34.0); MEAN CORPUSCULAR HGB CONC 32.7 g/dL (33.0-35.0); MEAN CORPUSCULAR VOLUME 84.9 fL (80.0-100.0); MEAN PLATELET VOLUME 8.2 fL (7.4-11.0); MONOCYTES # (AUTO) 1.6 x10^3/uL (0.3-0.8); MONOCYTES % (AUTO) 5.7 % (0.0-13.0); NEUTROPHILS # (AUTO) 22.9 x10^3/uL (2.2-4.8); NEUTROPHILS % (AUTO) 80.7 % (42.0-75.0); RED BLOOD COUNT 5.07 X10^6/uL (4.7-6.0); RED CELL DISTRIBUTION WIDTH 15.5 % (11.6-16.5); WHITE BLOOD COUNT 28.4 X10^3/uL (3.6-10.0)
[2022-01-29] MEDS ORDERED: NS 1,000 ML IV 1,000 ML ONE ×4 (07:30→18:39)
[2022-01-29] MEDS ORDERED: ZOFRAN INJ 4 MG VIAL IVP ONE (07:30)
[2022-01-29] MEDS ORDERED: ZOFRAN INJ 4 MG VIAL ONE (07:30)
[2022-01-29 07:31] LABS: SERUM ACETONE LARGE (NEGATIVE)
[2022-01-29] MEDS ORDERED: NovoLIN R (or HumuLIN R) ONE ×3 (07:31→09:39)
[2022-01-29] MEDS ORDERED: NovoLIN R (or HumuLIN R) IV ONE ×2 (07:31→09:39)
--- NOTE | 2022-01-29 07:32 | DR.HYPOGLY ---
HPI Time Seen Time Seen by Provider: 01/29/22 07:27 PCP Primary Care Physician: HARIKA CRUZ Complaint Chief Complaint Doctors Comments: N,V AND HYPERGLYCEMIA FOR 2 DAYS. TAKES METHADOME AND HAS NOT HAD IT FOR 4 DAYS. STATED THAT HE HAS BEEN TO [facility] TO TAKE IT. Chief Complaint:: PT. C/O HIGH BLOOD SUGAR. PT. STATES HE HAS BEEN SICK X 2 DAYS WITH N/V AND BODY PAIN. COVID-19 Coronavirus risk:travel/contact w/high risk person: No Has patient experienced Coronavirus symptoms: No Source History Provided: Patient and EMS Mode of Arrival Mode of Arrival: EMS Timing Onset of Chief Complaint: 01/27/22 PMH PMH Past Medical History: Yes Past Medical History: Anxiety, Diabetes and Hypertension Past Surgical History: Yes Surgical History: Other Family History History of Family Medical Conditions: Yes Family Medical History: Diabetes Mellitus, Sudden Cardiac and Hypertension Social History Does patient currently use any type of tobacco product: Yes Have you used tobacco products in the last 12 months: Yes Type of Tobacco Use: Cigarettes Does any household member use tobacco: Yes Alcohol Use: None Do you use any recreational Drugs:: No Lives With: Mom Lives Where: Home Travel Risk Coronavirus risk:travel/contact w/high risk person: No Has patient experienced Coronavirus symptoms: No Infectious screening In the last 2 months have you had wt loss of >10#?: NO Have you had fever, night sweats or hemotysis?: No Have you traveled outside the country in the last 6 months?: No Isolation: Standard ROS Review of Systems Constitutional: Fatigue and Other (NAUSEA,VOMITING AND BODY ACHES) Eyes: No Symptoms Reported ENTM: No Symptoms Reported Respiratoy: No Symptoms Reported Cardiovascular: No Symptoms Reported Gastrointestinal/Abdominal: Abdominal Pain, Nausea and Vomiting Genitourinary: No Symptoms Reported Neurological: Dizziness Musculoskeletal: Muscle Pain Integumentary: No Symptoms Reported Hematologic/Lymphatic: No Symptoms Reported Endocrine: Increased Thirst and Increased Urine; negative Other Psychiatric: Anxiety PE Vital Signs Vitals: Temperature 97.8 F Pulse Rate 144 Respiratory Rate 18 Blood Pressure [Left Arm] 133/84 Blood Pressure [Right Arm] 132/81 Blood Pressure 137/65 O2 Sat by Pulse Oximetry 98 General Limitations: Physical Limitation (UNABLE TO AMBULATE SECONDARY TO WEAKNESS) General Appearance: In Distress (MODERATE DISTRESS) Eyes Eye exam: Normal Appearance, PERRL and EOMI Pupils: Regular, Round: Bilateral ENT ENT Exam: Normal Exam and Normal Oropharynx Nose Exam: Normal Nose Exam Neck Neck Exam: Normal Inspection and Full ROM Chest Chest Inspection: Normal Inspection and Symmetric Chest Wall Rise Respiratory Respiratory Exam: Normal Lung Sounds Bilat Cardiovascular Cardiovascular Exam: Regular Rate Abdominal Exam Abdominal Exam: Normal Inspection, Normal Bowel Sounds and Soft Abdominal Tenderness: Diffuse Extremities Extremities Exam: Normal Inspection Back Back Exam: Normal Inspection and Full ROM Neurologic Neurological Exam: Alert and Oriented X3 Patient Oriented To: Person, Place and Time Speech: Fluid Speech MDM Differential diagnosis Differential diagnosis: Hypoglycemia (HYPERGLYCEMIA,DKA,CHRONIC PAIN,DEHYDRATION) COURSE Treatment Treatment: PATIENT WAS GIVEN INITIALLY 1 LITER BOLUS OF NACL AND 5 UNITIS OF NOVOLIN R IV ALONG WITH ZOFRAN 4MG IV AND WILL BE GIVEN DILAUDID 1 MG IV FOR PAIN. HAD 28.3 WBC'S ON CBC. HAD BC X2 AND LACTIC ACID DONE AND CHEST XRAY AND SERUM ACETONE THAT WAS HIGH. WAS BEGUN TREATMENT FOR DKA IN ER. PATIENT WAS SIGNED OUT TO DR PATTERSON. CONSULT WAS MADE WITH FR GASTELUM FOR CENTRAL LINE PLACEMENT. ROR Labs Reviewed Result Diagrams: 01/30/22 05:05 01/30/22 05:05 Laboratory: 01/29/22 08:06 Blood Blood Culture - Final 01/29/22 08:00 Blood Blood Culture - Final WBC 28.4 X10^3/uL (3.6-10.0) H 01/29/22 07:15 RBC 5.07 X10^6/uL (4.7-6.0) 01/29/22 07:15 Hgb 14.1 g/dL (13.5-18.0) 01/29/22 07:15 Hct 43.1 % (42.0-54.0) 01/29/22 07:15 MCV 84.9 fL (80.0-100.0) 01/29/22 07:15 MCH 27.8 pg (27.0-34.0) 01/29/22 07:15 MCHC 32.7 g/dL (33.0-35.0) L 01/29/22 07:15 RDW 15.5 % (11.6-16.5) 01/29/22 07:15 Plt Count 282 X10^3/uL (150.0-450.0) 01/29/22 07:15 Plt Count Comment Adequate (ADEQUATE) 01/29/22 07:15 MPV 8.2 fL (7.4-11.0) 01/29/22 07:15 Neut % (Auto) 80.7 % (42.0-75.0) H 01/29/22 07:15 Lymph % (Auto) 13.3 % (21.0-51.0) L 01/29/22 07:15 [place] % (Auto) 5.7 % (0.0-13.0) 01/29/22 07:15 Eos % (Auto) 0.1 % (0.9-2.9) L 01/29/22 07:15 Baso % (Auto) 0.2 % (0.2-1.0) 01/29/22 07:15 Neut # (Auto) 22.9 x10^3/uL (2.2-4.8) H 01/29/22 07:15 Lymph # (Auto) 3.8 X10^3/uL (1.3-2.9) H 01/29/22 07:15 [place] # (Auto) 1.6 x10^3/uL (0.3-0.8) H 01/29/22 07:15 Eos # (Auto) 0.0 x10^3/uL (0.0-0.2) 01/29/22 07:15 Baso # (Auto) 0.1 X10^3/uL (0.0-0.1) 01/29/22 07:15 Absolute Nucleated RBC 0.0 /100WBC 01/29/22 07:15 Total Counted 100 01/29/22 07:15 Neutrophils % (Manual) 72 % (39-76) 01/29/22 07:15 Band Neutrophils % 14 % (0-10) H 01/29/22 07:15 Lymphocytes % (Manual) 11 % (13-43) L 01/29/22 07:15 Monocytes % (Manual) 3 % (4-9) L 01/29/22 07:15 Plt Morphology Comment Normal (NORMAL) 01/29/22 07:15 RBC Morphology Normal (NORMAL) 01/29/22 07:15 Sample Site [facility] 01/29/22 07:31 ABG pH 7.110 (7.35-7.45) L* 01/29/22 07:31 ABG pCO2 23.0 mmHg (35.0-45.0) L 01/29/22 07:31 ABG pO2 84.0 mmHg (80.0-100.0) 01/29/22 07:31 ABG HCO3 7.3 mmol/L (22-26) L* 01/29/22 07:31 ABG O2 Saturation 92.0 % (90-100) 01/29/22 07:31 ABG Base Excess -20.6 mmol/L (-2.0-2.0) L 01/29/22 07:31 Geoff Test N/a 01/29/22 07:31 A-a Gradient 37.0 mmHg 01/29/22 07:31 FiO2 21.0 01/29/22 07:31 Blood Gas Comments Marva well ms/eb 01/29/22 07:31 Sodium 132 mmol/L (136-145) L 01/29/22 07:15 Corrected Sodium 143 mmol/L (136-145) 01/29/22 07:15 Potassium 4.6 mmol/L (3.5-5.1) 01/29/22 07:15 Chloride 93 mmol/L (98-107) L 01/29/22 07:15 Carbon Dioxide 10.5 mmol/L (21-32) L* 01/29/22 07:15 BUN 26 mg/dL (7-18) H 01/29/22 07:15 Creatinine 1.81 mg/dL (0.70-1.30) H 01/29/22 07:15 Est GFR (MDRD) Af Amer 54 (>60) L 01/29/22 07:15 Est GFR (MDRD) Non-Af 44 (>60) L 01/29/22 07:15 Glucose 529 mg/dL (65-99) H* 01/29/22 09:47 POC Glucose (mg/dL) 451 mg/dL (65-99) H 01/29/22 10:11 Lactic Acid 4.5 mmol/L (0.4-2.0) H 01/29/22 08:00 Calcium 8.7 mg/dL (8.5-10.1) 01/29/22 07:15 Corrected Calcium TNP 01/29/22 07:15 Total Bilirubin 1.00 mg/dL (0.2-1.0) 01/29/22 07:15 AST 11 Units/L (15-37) L 01/29/22 07:15 ALT 15 Units/L (12-78) 01/29/22 07:15 Alkaline Phosphatase 114 Units/L (46-116) 01/29/22 07:15 Total Protein 7.7 g/dL (6.4-8.2) 01/29/22 07:15 Albumin 3.7 g/dL (3.4-5.0) 01/29/22 07:15 Globulin 4.0 g/dL (2.5-4.5) 01/29/22 07:15 Albumin/Globulin Ratio 0.9 Ratio (1.1-2.1) L 01/29/22 07:15 Specimen Type Clean catch urine 01/29/22 08:49 Urine Color Pale yellow (YELLOW) 01/29/22 08:49 Urine Appearance Clear (CLEAR) 01/29/22 08:49 Urine pH 5.0 (5.0 - 8.0) 01/29/22 08:49 Ur Specific [place] 1.020 (1.000-1.030) 01/29/22 08:49 Urine Protein 2+ (NEGATIVE) 01/29/22 08:49 Urine Glucose (UA) 4+ (NEGATIVE) 01/29/22 08:49 Urine Ketones 4+ (NEGATIVE) 01/29/22 08:49 Urine Blood Negative (NEGATIVE) 01/29/22 08:49 Urine Nitrite Negative (NEGATIVE) 01/29/22 08:49 Urine Bilirubin Negative (NEGATIVE) 01/29/22 08:49 Urine Urobilinogen Normal (NORMAL) 01/29/22 08:49 Ur Leukocyte Esterase Negative (NEGATIVE) 01/29/22 08:49 Urine RBC 0-2 /HPF (0-3) 01/29/22 08:49 Urine WBC 0-2 /HPF (0-5) 01/29/22 08:49 Ur Squamous Epith Cells Rare /HPF (NEGATIVE) 01/29/22 08:49 Urine Bacteria Negative /HPF (NEGATIVE) 01/29/22 08:49 Urine Yeast Rare /HPF (NEGATIVE) 01/29/22 08:49 Ur Culture Indicated? No/not indicated 01/29/22 08:49 Urine Opiates Screen Negative (NEG=<300) 01/29/22 08:49 Urine Methadone Screen Positive (NEG=<300) 01/29/22 08:49 Ur Barbiturates Screen Negative (NEG=<200) 01/29/22 08:49 Ur Phencyclidine Scrn Negative (NEG=<25) 01/29/22 08:49 Ur Amphetamines Screen Negative (NEG=<1000) 01/29/22 08:49 U Benzodiazepines Scrn Positive (NEG=<200) 01/29/22 08:49 Urine Cocaine Screen Negative (NEG=<300) 01/29/22 08:49 U Marijuana (THC) Screen Negative (NEG=<50) 01/29/22 08:49 Acetone, Semi-Quant Large (NEGATIVE) H 01/29/22 07:15 SARS-CoV-2 (PCR) Negative (NEGATIVE) 01/29/22 07:48 Influenza Type A (PCR) Negative (NEGATIVE) 01/29/22 07:48 Influenza Type B (PCR) Negative (NEGATIVE) 01/29/22 07:48 RSV (PCR) Negative (NEGATIVE) 01/29/22 07:48 Opioid Opioid Risk Tool Family Hx of Substance Abuse: Illegal Drugs Personal Hx of Substance Abuse: Illegal Drugs Age (Ajit box if 16-45): Yes History of Preadolescent Sexual Abuse: No Psychological Disease: PTSD Total: 2 Total Score Risk Category: Low Risk Copyright: Fady ARTHUR predicting aberrant behaviors Discharge Plan Diagnosis Discharge Problem: DKA (diabetic ketoacidosis), Leucocytosis, Chronic pain Discharge Plan Patient Disposition: 09 ADMITTED INPATIENT Condition: Stable
[2022-01-29] MEDS: NS 1,000 ML IV 1,000 ML IV ONE ×2 (07:36→09:32)
[2022-01-29 07:37] LABS: ALANINE AMINOTRANSFERASE 15 Units/L (12-78); ALBUMIN 3.7 g/dL (3.4-5.0); ALKALINE PHOSPHATASE 114 Units/L (46-116); ASPARTATE AMINO TRANSFERASE 11 Units/L (15-37); BLOOD UREA NITROGEN 26 mg/dL (7-18); CALCIUM 8.7 mg/dL (8.5-10.1); CHLORIDE 93 mmol/L (98-107); CREATININE 1.81 mg/dL (0.70-1.30); SODIUM 132 mmol/L (136-145); TOTAL PROTEIN 7.7 g/dL (6.4-8.2); eGFR NON BLACK RACES 44 (>60)
[2022-01-29 07:39] LABS: CARBON DIOXIDE 10.5 mmol/L (21-32)
[2022-01-29 07:40] LABS: COR NA(FOR HYPERGLY) 143 mmol/L (136-145)
[2022-01-29 07:41] LABS: BAND NEUTROPHILS % 14 % (0-10); PLATELET MORPHOLOGY COMMENT NORMAL (NORMAL)
[2022-01-29 07:44] LABS: ABG BASE EXCESS -20.6 mmol/L (-2.0-2.0)
[2022-01-29 07:45] LABS: ABG HCO3 7.3 mmol/L (22-26)
[2022-01-29] MEDS ORDERED: DILAUDID INJ IVP ONE (07:55)
[2022-01-29] MEDS ORDERED: DILAUDID INJ ONE (07:58)
[2022-01-29] MEDS ORDERED: COMPAZINE INJ IVP ONE (08:31)
[2022-01-29] MEDS ORDERED: COMPAZINE INJ ONE (08:35)
--- NOTE | 2022-01-29 09:20 | RAD ---
HISTORYhigh blood sugar.brhyperglycemia, elevated white countchest xray was ordered prior to central line placement, however we waited per surgeon until line was placedSTUDYCHEST, 1 [id number]/2022FINDINGSLINES AND TUBES: Left chest wall port.HEART/ PULMONARY VASCULATURE: No significant abnormalityLUNGS/ PLEURA: No significant pulmonary or pleural abnormality. No pneumothoraxOTHER: NoneIMPRESSIONNo acute findings.Electronically signed by: David Garcia (Jan 29, 2022 09:18:15)
[2022-01-29] MEDS ORDERED: MYXREDLIN 100 UNIT/100 ML BAG 100 UNIT/100 ML PLAST..BAG IV ONE (09:34)
[2022-01-29] MEDS ORDERED: MYXREDLIN 100 UNIT/100 ML BAG 100 UNIT/100 ML PLAST..BAG IV PRN (09:41)
[2022-01-29 09:42] LABS: BILIRUBIN,URINE NEGATIVE (NEGATIVE); BLOOD/HEMOGLOBIN,URINE NEGATIVE (NEGATIVE); GLUCOSE, URINE 4+ (NEGATIVE); KETONES,URINE 4+ (NEGATIVE); LEUKOCYTE ESTERASE ,URINE NEGATIVE (NEGATIVE); NITRITES,URINE NEGATIVE (NEGATIVE); PROTEIN,URINE 2+ (NEGATIVE); UROBILINOGEN,URINE NORMAL (NORMAL)
[2022-01-29 09:43] LABS: APPEARANCE,URINE CLEAR (CLEAR); COLOR,URINE PALE YELLOW (YELLOW)
[2022-01-29 09:51] LABS: BACTERIA,URINE NEGATIVE /HPF (NEGATIVE); RBC,URINE 0-2 /HPF (0-3); SQUAMOUS EPITHELIAL CELL,UR RARE /HPF (NEGATIVE)
[2022-01-29 09:52] LABS: YEAST,URINE RARE /HPF (NEGATIVE)
--- NOTE | 2022-01-29 09:58 | DR.HYPOGLY ---
HPI Time Seen Time Seen by Provider: 01/29/22 07:27 PCP Primary Care Physician: HARIKA CRUZ HPI Comment HPI Comment: high blood sugar .Pt was seen by Dr sosa .Was noted to have blood sugar over 500.Pt abg PH 7.11.was given insulin ,iv fluids Complaint Chief Complaint:: PT. C/O HIGH BLOOD SUGAR. PT. STATES HE HAS BEEN SICK X 2 DAYS WITH N/V AND BODY PAIN. COVID-19 Coronavirus risk:travel/contact w/high risk person: No Has patient experienced Coronavirus symptoms: No Source History Provided: Patient and EMS Mode of Arrival Mode of Arrival: EMS Timing Onset of Chief Complaint: 01/27/22 PMH PMH Past Medical History: Yes Past Medical History: Anxiety, Diabetes and Hypertension Past Surgical History: Yes Surgical History: Other Family History History of Family Medical Conditions: Yes Family Medical History: Diabetes Mellitus, Sudden Cardiac and Hypertension Social History Does patient currently use any type of tobacco product: Yes Have you used tobacco products in the last 12 months: Yes Type of Tobacco Use: Cigarettes Does any household member use tobacco: Yes Alcohol Use: None Do you use any recreational Drugs:: No Lives With: Mom Lives Where: Home Travel Risk Coronavirus risk:travel/contact w/high risk person: No Has patient experienced Coronavirus symptoms: No Infectious screening In the last 2 months have you had wt loss of >10#?: NO Have you had fever, night sweats or hemotysis?: No Have you traveled outside the country in the last 6 months?: No Isolation: Standard PE Vital Signs Vitals: Temperature 97.8 F Pulse Rate 141 Respiratory Rate 17 Blood Pressure [Left Arm] 133/84 Blood Pressure [Right Arm] 132/81 Blood Pressure 150/75 O2 Sat by Pulse Oximetry 98 COURSE Treatment Treatment: IV fluids insulin infusion,bicarbinate blood culture .spoke with dr Gilberto Reyes to admit payient for managemnet of diabetic ketoacidosis,and blood sugar Reevaluation 1st: Unchanged ROR Labs Reviewed Result Diagrams: 01/29/22 07:15 01/29/22 09:47 Laboratory: WBC 28.4 X10^3/uL (3.6-10.0) H 01/29/22 07:15 RBC 5.07 X10^6/uL (4.7-6.0) 01/29/22 07:15 Hgb 14.1 g/dL (13.5-18.0) 01/29/22 07:15 Hct 43.1 % (42.0-54.0) 01/29/22 07:15 MCV 84.9 fL (80.0-100.0) 01/29/22 07:15 MCH 27.8 pg (27.0-34.0) 01/29/22 07:15 MCHC 32.7 g/dL (33.0-35.0) L 01/29/22 07:15 RDW 15.5 % (11.6-16.5) 01/29/22 07:15 Plt Count 282 X10^3/uL (150.0-450.0) 01/29/22 07:15 Plt Count Comment Adequate (ADEQUATE) 01/29/22 07:15 MPV 8.2 fL (7.4-11.0) 01/29/22 07:15 Neut % (Auto) 80.7 % (42.0-75.0) H 01/29/22 07:15 Lymph % (Auto) 13.3 % (21.0-51.0) L 01/29/22 07:15 [place] % (Auto) 5.7 % (0.0-13.0) 01/29/22 07:15 Eos % (Auto) 0.1 % (0.9-2.9) L 01/29/22 07:15 Baso % (Auto) 0.2 % (0.2-1.0) 01/29/22 07:15 Neut # (Auto) 22.9 x10^3/uL (2.2-4.8) H 01/29/22 07:15 Lymph # (Auto) 3.8 X10^3/uL (1.3-2.9) H 01/29/22 07:15 [place] # (Auto) 1.6 x10^3/uL (0.3-0.8) H 01/29/22 07:15 Eos # (Auto) 0.0 x10^3/uL (0.0-0.2) 01/29/22 07:15 Baso # (Auto) 0.1 X10^3/uL (0.0-0.1) 01/29/22 07:15 Absolute Nucleated RBC 0.0 /100WBC 01/29/22 07:15 Total Counted 100 01/29/22 07:15 Neutrophils % (Manual) 72 % (39-76) 01/29/22 07:15 Band Neutrophils % 14 % (0-10) H 01/29/22 07:15 Lymphocytes % (Manual) 11 % (13-43) L 01/29/22 07:15 Monocytes % (Manual) 3 % (4-9) L 01/29/22 07:15 Plt Morphology Comment Normal (NORMAL) 01/29/22 07:15 RBC Morphology Normal (NORMAL) 01/29/22 07:15 Sample Site [facility] 01/29/22 07:31 ABG pH 7.110 (7.35-7.45) L* 01/29/22 07:31 ABG pCO2 23.0 mmHg (35.0-45.0) L 01/29/22 07:31 ABG pO2 84.0 mmHg (80.0-100.0) 01/29/22 07:31 ABG HCO3 7.3 mmol/L (22-26) L* 01/29/22 07:31 ABG O2 Saturation 92.0 % (90-100) 01/29/22 07:31 ABG Base Excess -20.6 mmol/L (-2.0-2.0) L 01/29/22 07:31 Geoff Test N/a 01/29/22 07:31 A-a Gradient 37.0 mmHg 01/29/22 07:31 FiO2 21.0 01/29/22 07:31 Blood Gas Comments Marva well ms/eb 01/29/22 07:31 Sodium 132 mmol/L (136-145) L 01/29/22 07:15 Corrected Sodium 143 mmol/L (136-145) 01/29/22 07:15 Potassium 4.6 mmol/L (3.5-5.1) 01/29/22 07:15 Chloride 93 mmol/L (98-107) L 01/29/22 07:15 Carbon Dioxide 10.5 mmol/L (21-32) L* 01/29/22 07:15 BUN 26 mg/dL (7-18) H 01/29/22 07:15 Creatinine 1.81 mg/dL (0.70-1.30) H 01/29/22 07:15 Est GFR (MDRD) Af Amer 54 (>60) L 01/29/22 07:15 Est GFR (MDRD) Non-Af 44 (>60) L 01/29/22 07:15 Glucose 529 mg/dL (65-99) H* 01/29/22 09:47 POC Glucose (mg/dL) 451 mg/dL (65-99) H 01/29/22 10:11 Lactic Acid 4.5 mmol/L (0.4-2.0) H 01/29/22 08:00 Calcium 8.7 mg/dL (8.5-10.1) 01/29/22 07:15 Corrected Calcium TNP 01/29/22 07:15 Total Bilirubin 1.00 mg/dL (0.2-1.0) 01/29/22 07:15 AST 11 Units/L (15-37) L 01/29/22 07:15 ALT 15 Units/L (12-78) 01/29/22 07:15 Alkaline Phosphatase 114 Units/L (46-116) 01/29/22 07:15 Total Protein 7.7 g/dL (6.4-8.2) 01/29/22 07:15 Albumin 3.7 g/dL (3.4-5.0) 01/29/22 07:15 Globulin 4.0 g/dL (2.5-4.5) 01/29/22 07:15 Albumin/Globulin Ratio 0.9 Ratio (1.1-2.1) L 01/29/22 07:15 Specimen Type Clean catch urine 01/29/22 08:49 Urine Color Pale yellow (YELLOW) 01/29/22 08:49 Urine Appearance Clear (CLEAR) 01/29/22 08:49 Urine pH 5.0 (5.0 - 8.0) 01/29/22 08:49 Ur Specific [place] 1.020 (1.000-1.030) 01/29/22 08:49 Urine Protein 2+ (NEGATIVE) 01/29/22 08:49 Urine Glucose (UA) 4+ (NEGATIVE) 01/29/22 08:49 Urine Ketones 4+ (NEGATIVE) 01/29/22 08:49 Urine Blood Negative (NEGATIVE) 01/29/22 08:49 Urine Nitrite Negative (NEGATIVE) 01/29/22 08:49 Urine Bilirubin Negative (NEGATIVE) 01/29/22 08:49 Urine Urobilinogen Normal (NORMAL) 01/29/22 08:49 Ur Leukocyte Esterase Negative (NEGATIVE) 01/29/22 08:49 Urine RBC 0-2 /HPF (0-3) 01/29/22 08:49 Urine WBC 0-2 /HPF (0-5) 01/29/22 08:49 Ur Squamous Epith Cells Rare /HPF (NEGATIVE) 01/29/22 08:49 Urine Bacteria Negative /HPF (NEGATIVE) 01/29/22 08:49 Urine Yeast Rare /HPF (NEGATIVE) 01/29/22 08:49 Ur Culture Indicated? No/not indicated 01/29/22 08:49 Urine Opiates Screen Negative (NEG=<300) 01/29/22 08:49 Urine Methadone Screen Positive (NEG=<300) 01/29/22 08:49 Ur Barbiturates Screen Negative (NEG=<200) 01/29/22 08:49 Ur Phencyclidine Scrn Negative (NEG=<25) 01/29/22 08:49 Ur Amphetamines Screen Negative (NEG=<1000) 01/29/22 08:49 U Benzodiazepines Scrn Positive (NEG=<200) 01/29/22 08:49 Urine Cocaine Screen Negative (NEG=<300) 01/29/22 08:49 U Marijuana (THC) Screen Negative (NEG=<50) 01/29/22 08:49 Acetone, Semi-Quant Large (NEGATIVE) H 01/29/22 07:15 SARS-CoV-2 (PCR) Negative (NEGATIVE) 01/29/22 07:48 Influenza Type A (PCR) Negative (NEGATIVE) 01/29/22 07:48 Influenza Type B (PCR) Negative (NEGATIVE) 01/29/22 07:48 RSV (PCR) Negative (NEGATIVE) 01/29/22 07:48 Opioid Opioid Risk Tool Family Hx of Substance Abuse: Illegal Drugs Personal Hx of Substance Abuse: Illegal Drugs Age (Ajit box if 16-45): Yes History of Preadolescent Sexual Abuse: No Psychological Disease: PTSD Total: 2 Total Score Risk Category: Low Risk Copyright: Fady ARTHUR predicting aberrant behaviors Discharge Plan Diagnosis Discharge Problem: DKA (diabetic ketoacidosis), Leucocytosis, Chronic pain Discharge Plan Patient Disposition: 09 ADMITTED INPATIENT Condition: Stable Prescriptions: No Action alprazolam 0.5 mg tablet 0.5 mg PO TID PRN duloxetine 30 mg capsule,delayed release(DR/EC) 30 mg PO DAILY promethazine 25 mg Tablet 25 mg PO Q6H PRN metoprolol succinate 25 mg Tablet Extended Release 24 Hr 25 mg PO BID trazodone 50 mg Tablet 50 mg PO HS lisinopril 10 mg Tablet 10 mg PO HS Novolin R Regular U-100 Insuln 100 unit/mL Solution 5 unit subcut AC Rx Instructions: novolog regular insulin 5 units before each meal this is a schelduled drug. methadone 10 mg Tablet 10 mg PO QID famotidine 20 mg tablet 20 mg PO BID Novolin N NPH U-100 Insulin 100 unit/mL suspension 20 unit SUBCUT BID Xarelto 20 mg tablet 20 mg PO DAILY Linzess 145 mcg capsule 145 mcg PO DAILY Health Concerns: Post Hospitalization: new medications and changes needed to prevent readmission or further decline. Pt educated and given instructions on all concerns. Plan of Treatment: Continue with present treatment and follow up plan. Pt is to keep follow up appointment as instructed and take medications as ordered. Follow ups/Referrals Follow ups/Referrals: NFD,None [Primary Care Provider] - 3 days Instructions Stand Alone Forms: [facility], Patient Portal, Social Distancing
[2022-01-29] MEDS ORDERED: SODIUM BICARBONATE 8.4% INJ ADULT ONE (10:27)
[2022-01-29] MEDS: PROTONIX INJ 40 MG VIAL IVP SCH ×2 (10:37→20:55)
[2022-01-29] MEDS ORDERED: PROTONIX INJ 40 MG VIAL ONE (10:37)
[2022-01-29] MEDS ORDERED: NS 1,000 ML IV 1,000 ML with SODIUM BICARBONATE 8.4% INJ ADULT 50 ML IV SCH ×2 (11:00)
[2022-01-29] MEDS ORDERED: LOPRESSOR INJ 5 MG AMP ONE (12:42)
[2022-01-29] MEDS ORDERED: LOPRESSOR INJ 5 MG AMP IVP ONE (12:42)
[2022-01-29] MEDS ORDERED: NS 1,000 ML IV 1,000 ML with SODIUM BICARBONATE 8.4% INJ ADULT 50 ML IV PRN ×2 (12:47)
[2022-01-29 12:57] LABS: ABG BASE EXCESS -18.2 mmol/L (-2.0-2.0)
[2022-01-29 12:58] LABS: ABG HCO3 8.9 mmol/L (22-26)
[2022-01-29 13:12] VITALS: BMI 19.5
--- NOTE | 2022-01-29 16:20 | DR.H&P ---
H&P History & Physical for Day of: H&P Date: 01/29/22 Chief Complaint Chief Complaint: Nausea vomiting and body aches for the last 2 days Allergies Allergies Allergy/AdvReac Type Severity Reaction Status Date / Time No Known Drug Allergies Allergy Verified 10/07/21 16:28 History of Present Illness History of Present Illness: This is a 41-year-old white male with known history of type 1 diabetes. He has multiple admissions through the years for DKA. Patient was concerned that he may be in acidosis again so came to the emergency department since he has been sick last 2 days. He reports aching all over and work-up revealed that he had a large amount of ketones in the urine. ABG was done and showed him to be acidotic with a pH of 7.11. His blood sugar was over 500 in the emergency department. He was started on insulin drip there along with IV fluid. An amp of bicarb was added to the IV fluid because of his acidosis in the emergency department. I saw him in the emergency department prior to him being admitted to the ICU. I decided to go ahead and starting on IV Zosyn given he also has a leukocytosis of 28,400 with 14 bands cells present. UA was negative for UTI chest x-ray was clear however his lactic acid is noted to be elevated. Last admission patient was noted to be septic from a urinary tract infection. Patient can response or answer questions appropriately but does seem somewhat mildly lethargic. I am admitting the patient to ICU on DKA protocol and we will keep him on insulin drip per protocol until his acetone is normal and we will continue to add bicarb to his IV fluid until his acidosis resolved. Blood cultures have been drawn I will follow-up with him when available. Past Medical History Past Medical History: Anxiety, Diabetes and Hypertension Additional Medical History: DKA, Gastroparesis, Chronic Low Back Pain With Radiculopathy, Pancreatitis, UTI's Past Surgical History Surgical History: Other Additional Surgical History: Crumrod Teeth Surgically Removed Family History Family Medical History: Diabetes Mellitus, Sudden Cardiac and Hypertension Social History Does patient currently use any type of tobacco product: Yes Have you used tobacco products in the last 12 months: Yes Type of Tobacco Use: Cigarettes Does any household member use tobacco: Yes Alcohol Use: None Drug Use: Prescription Drugs Medications Home Medications: No Known Drug Allergies Allergy (Verified 10/07/21 16:28) Labs Result Diagrams: 01/29/22 07:15 01/29/22 09:47 Labs: Laboratory WBC 28.4 X10^3/uL (3.6-10.0) H 01/29/22 07:15 RBC 5.07 X10^6/uL (4.7-6.0) 01/29/22 07:15 Hgb 14.1 g/dL (13.5-18.0) 01/29/22 07:15 Hct 43.1 % (42.0-54.0) 01/29/22 07:15 MCV 84.9 fL (80.0-100.0) 01/29/22 07:15 MCH 27.8 pg (27.0-34.0) 01/29/22 07:15 MCHC 32.7 g/dL (33.0-35.0) L 01/29/22 07:15 RDW 15.5 % (11.6-16.5) 01/29/22 07:15 Plt Count 282 X10^3/uL (150.0-450.0) 01/29/22 07:15 Plt Count Comment Adequate (ADEQUATE) 01/29/22 07:15 MPV 8.2 fL (7.4-11.0) 01/29/22 07:15 Neut % (Auto) 80.7 % (42.0-75.0) H 01/29/22 07:15 Lymph % (Auto) 13.3 % (21.0-51.0) L 01/29/22 07:15 [place] % (Auto) 5.7 % (0.0-13.0) 01/29/22 07:15 Eos % (Auto) 0.1 % (0.9-2.9) L 01/29/22 07:15 Baso % (Auto) 0.2 % (0.2-1.0) 01/29/22 07:15 Neut # (Auto) 22.9 x10^3/uL (2.2-4.8) H 01/29/22 07:15 Lymph # (Auto) 3.8 X10^3/uL (1.3-2.9) H 01/29/22 07:15 [place] # (Auto) 1.6 x10^3/uL (0.3-0.8) H 01/29/22 07:15 Eos # (Auto) 0.0 x10^3/uL (0.0-0.2) 01/29/22 07:15 Baso # (Auto) 0.1 X10^3/uL (0.0-0.1) 01/29/22 07:15 Absolute Nucleated RBC 0.0 /100WBC 01/29/22 07:15 Total Counted 100 01/29/22 07:15 Neutrophils % (Manual) 72 % (39-76) 01/29/22 07:15 Band Neutrophils % 14 % (0-10) H 01/29/22 07:15 Lymphocytes % (Manual) 11 % (13-43) L 01/29/22 07:15 Monocytes % (Manual) 3 % (4-9) L 01/29/22 07:15 Plt Morphology Comment Normal (NORMAL) 01/29/22 07:15 RBC Morphology Normal (NORMAL) 01/29/22 07:15 Sample Site [facility] 01/29/22 12:42 ABG pH 7.160 (7.35-7.45) L* 01/29/22 12:42 ABG pCO2 25.0 mmHg (35.0-45.0) L 01/29/22 12:42 ABG pO2 79.0 mmHg (80.0-100.0) L 01/29/22 12:42 ABG HCO3 8.9 mmol/L (22-26) L* 01/29/22 12:42 ABG O2 Saturation 91.0 % (90-100) 01/29/22 12:42 ABG Base Excess -18.2 mmol/L (-2.0-2.0) L 01/29/22 12:42 Geoff Test N/a 01/29/22 12:42 A-a Gradient 39.0 mmHg 01/29/22 12:42 FiO2 21.0 01/29/22 12:42 Blood Gas Comments Marva well ms/eb 01/29/22 12:42 Sodium 132 mmol/L (136-145) L 01/29/22 07:15 Corrected Sodium 143 mmol/L (136-145) 01/29/22 07:15 Potassium 4.6 mmol/L (3.5-5.1) 01/29/22 07:15 Chloride 93 mmol/L (98-107) L 01/29/22 07:15 Carbon Dioxide 10.5 mmol/L (21-32) L* 01/29/22 07:15 BUN 26 mg/dL (7-18) H 01/29/22 07:15 Creatinine 1.81 mg/dL (0.70-1.30) H 01/29/22 07:15 Est GFR (MDRD) Af Amer 54 (>60) L 01/29/22 07:15 Est GFR (MDRD) Non-Af 44 (>60) L 01/29/22 07:15 Glucose 529 mg/dL (65-99) H* 01/29/22 09:47 POC Glucose (mg/dL) 257 mg/dL (65-99) H 01/29/22 16:02 Lactic Acid 4.5 mmol/L (0.4-2.0) H 01/29/22 08:00 Calcium 8.7 mg/dL (8.5-10.1) 01/29/22 07:15 Corrected Calcium TNP 01/29/22 07:15 Total Bilirubin 1.00 mg/dL (0.2-1.0) 01/29/22 07:15 AST 11 Units/L (15-37) L 01/29/22 07:15 ALT 15 Units/L (12-78) 01/29/22 07:15 Alkaline Phosphatase 114 Units/L (46-116) 01/29/22 07:15 Total Protein 7.7 g/dL (6.4-8.2) 01/29/22 07:15 Albumin 3.7 g/dL (3.4-5.0) 01/29/22 07:15 Globulin 4.0 g/dL (2.5-4.5) 01/29/22 07:15 Albumin/Globulin Ratio 0.9 Ratio (1.1-2.1) L 01/29/22 07:15 Specimen Type Clean catch urine 01/29/22 08:49 Urine Color Pale yellow (YELLOW) 01/29/22 08:49 Urine Appearance Clear (CLEAR) 01/29/22 08:49 Urine pH 5.0 (5.0 - 8.0) 01/29/22 08:49 Ur Specific [place] 1.020 (1.000-1.030) 01/29/22 08:49 Urine Protein 2+ (NEGATIVE) 01/29/22 08:49 Urine Glucose (UA) 4+ (NEGATIVE) 01/29/22 08:49 Urine Ketones 4+ (NEGATIVE) 01/29/22 08:49 Urine Blood Negative (NEGATIVE) 01/29/22 08:49 Urine Nitrite Negative (NEGATIVE) 01/29/22 08:49 Urine Bilirubin Negative (NEGATIVE) 01/29/22 08:49 Urine Urobilinogen Normal (NORMAL) 01/29/22 08:49 Ur Leukocyte Esterase Negative (NEGATIVE) 01/29/22 08:49 Urine RBC 0-2 /HPF (0-3) 01/29/22 08:49 Urine WBC 0-2 /HPF (0-5) 01/29/22 08:49 Ur Squamous Epith Cells Rare /HPF (NEGATIVE) 01/29/22 08:49 Urine Bacteria Negative /HPF (NEGATIVE) 01/29/22 08:49 Urine Yeast Rare /HPF (NEGATIVE) 01/29/22 08:49 Ur Culture Indicated? No/not indicated 01/29/22 08:49 Urine Opiates Screen Negative (NEG=<300) 01/29/22 08:49 Urine Methadone Screen Positive (NEG=<300) 01/29/22 08:49 Ur Barbiturates Screen Negative (NEG=<200) 01/29/22 08:49 Ur Phencyclidine Scrn Negative (NEG=<25) 01/29/22 08:49 Ur Amphetamines Screen Negative (NEG=<1000) 01/29/22 08:49 U Benzodiazepines Scrn Positive (NEG=<200) 01/29/22 08:49 Urine Cocaine Screen Negative (NEG=<300) 01/29/22 08:49 U Marijuana (THC) Screen Negative (NEG=<50) 01/29/22 08:49 Acetone, Semi-Quant Large (NEGATIVE) H 01/29/22 07:15 SARS-CoV-2 (PCR) Negative (NEGATIVE) 01/29/22 07:48 Influenza Type A (PCR) Negative (NEGATIVE) 01/29/22 07:48 Influenza Type B (PCR) Negative (NEGATIVE) 01/29/22 07:48 RSV (PCR) Negative (NEGATIVE) 01/29/22 07:48 Review of Systems Constitutional: Weakness and Malaise Eyes: No Symptoms Reported ENT: No Symptoms Reported Respiratory: No Symptoms Reported Cardiovascular: No Symptoms Reported Gastrointestinal: Nausea and Vomiting Genitourinary: No Symptoms Reported Musculoskeletal: Other (Generalized pain throughout his body) Skin: No Symptoms Reported Neurological: No Symptoms Reported and Weakness Physical Exam Vital Signs: Temperature 97.8 F Pulse Rate 109 Respiratory Rate 16 Blood Pressure [Left Arm] 133/84 Blood Pressure [Right Arm] 132/81 Blood Pressure 133/88 O2 Sat by Pulse Oximetry 99 Oriented: Normal, Time, Person and Place Eyes: Normal Ear: Normal Nose: Normal Throat: Normal Respiratory: Clear Throughout Cardiovascular: Normal : Normal Palpation: Normal Tenderness: Normal Skin: Normal Musculoskeletal: Normal Psychiatric: Normal Mood Description: Calm Affect: Normal Speech Pattern: Clear and Appropriate Assessment/Plan (1) DKA (diabetic ketoacidosis): Status: Acute Plan: Insulin drip per protocol along with diabetic ketoacidosis protocol. Recheck serum acetone in the morning and continue normal saline at 175 cc/L with 1 amp of bicarb added to each liter of IV fluid. I will plan on rechecking a ABG at 1700 today. Recheck CMP in the a.m. (2) Leucocytosis: Status: Acute Plan: Follow-up blood cultures when available and will empirically treat with IV Zosyn. (3) Chronic pain: Status: Acute Plan: We will plan on resuming patient's methadone if needed. (4) Opioid dependence: Qualifiers: Substance use status: with unspecified opioid-induced disorder Qualified Code(s): F11.29 - Opioid dependence with unspecified opioid-induced disorder Status: Chronic Plan: Monitor for opioid withdrawals. (5) Essential hypertension, benign: Status: Chronic Plan: Monitor the patient's blood pressure and treat accordingly if his blood pressure becomes elevated. (6) Dehydration: Status: Acute Plan: Normal saline at 175 cc/h. Review H&P Reviewed: Yes Patient was examined?: Yes
[2022-01-29 18:12] LABS: ABG ALLEN TEST POS; ABG BASE EXCESS -7.6 mmol/L (-2.0-2.0); ABG HCO3 18.2 mmol/L (22-26)
[2022-01-29] MEDS: NS 1,000 ML IV 1,000 ML IV SCH (19:00)
[2022-01-29] MEDS ORDERED: SNACK - Diabetic Appropriate PO SCH (20:00)
[2022-01-29] MEDS: METHADONE HCL PO SCH (20:55)
[2022-01-29] MEDS: LOPRESSOR TAB 25 MG PO SCH (20:55)
[2022-01-29] MEDS ORDERED: METHADONE HCL PO SCH (21:00)
[2022-01-30] MEDS: NS 1,000 ML IV 1,000 ML IV SCH (02:45)
[2022-01-30 05:12] LABS: ABG ALLEN TEST POS; ABG BASE EXCESS -1.9 mmol/L (-2.0-2.0); ABG HCO3 22.2 mmol/L (22-26)
[2022-01-30 05:33] LABS: BASOPHILS % (AUTO) 0.1 % (0.2-1.0); EOSINOPHILS % (AUTO) 0.2 % (0.9-2.9); LYMPHOCYTES # (AUTO) 4.5 X10^3/uL (1.3-2.9); LYMPHOCYTES % (AUTO) 25.8 % (21.0-51.0); MEAN CORPUSCULAR HEMOGLOBIN 27.1 pg (27.0-34.0); MEAN CORPUSCULAR HGB CONC 33.4 g/dL (33.0-35.0); MEAN CORPUSCULAR VOLUME 81.1 fL (80.0-100.0); MEAN PLATELET VOLUME 7.6 fL (7.4-11.0); MONOCYTES # (AUTO) 1.8 x10^3/uL (0.3-0.8); MONOCYTES % (AUTO) 10.3 % (0.0-13.0); NEUTROPHILS # (AUTO) 11.2 x10^3/uL (2.2-4.8); NEUTROPHILS % (AUTO) 63.6 % (42.0-75.0); RED BLOOD COUNT 4.32 X10^6/uL (4.7-6.0)
[2022-01-30 05:36] LABS: HEMOGLOBIN 11.7 g/dL (13.5-18.0); WHITE BLOOD COUNT 17.6 X10^3/uL (3.6-10.0)
[2022-01-30 05:43] LABS: ALANINE AMINOTRANSFERASE 16 Units/L (12-78); ALBUMIN 3.1 g/dL (3.4-5.0); ALKALINE PHOSPHATASE 84 Units/L (46-116); ASPARTATE AMINO TRANSFERASE 12 Units/L (15-37); BLOOD UREA NITROGEN 12 mg/dL (7-18); CALCIUM 8.1 mg/dL (8.5-10.1); CARBON DIOXIDE 24.8 mmol/L (21-32); CHLORIDE 106 mmol/L (98-107); COR CA(FOR HYPOALB) 8.8 mg/dL (8.5-10.1); COR NA(FOR HYPERGLY) 141 mmol/L (136-145); CREATININE 1.16 mg/dL (0.70-1.30); SODIUM 140 mmol/L (136-145); TOTAL PROTEIN 6.6 g/dL (6.4-8.2); eGFR NON BLACK RACES > 60 (>60)
[2022-01-30] MEDS ORDERED: KLOR-CON PO PRN (09:17)
[2022-01-30] MEDS ORDERED: K-DUR TAB 20 MEQ PO PRN (09:17)
[2022-01-30] MEDS ORDERED: MICRO K EXTEN CAP 10 MEQ PO PRN (09:17)
[2022-01-30] MEDS: METHADONE HCL PO SCH ×3 (09:50→17:16)
[2022-01-30] MEDS: LOPRESSOR TAB 25 MG PO SCH (09:50)
[2022-01-30] MEDS: PROTONIX INJ 40 MG VIAL IVP SCH (09:50)
[2022-01-30] MEDS: ZOSYN VIAL 3.375 GRAMS 3.375 G in NS 100 ML IV 100 ML IV SCH ×2 (09:51→14:21)
[2022-01-30] MEDS ORDERED: ZOFRAN INJ 4 MG VIAL IVP PRN (10:06)
[2022-01-30] MEDS ORDERED: PHENERGAN INJ 25 MG IM PRN (10:06)
[2022-01-30] MEDS: MAGNESIUM SULFATE 1 GRAM/100 mL PREMIX 1 G/100 ML BAG IV PRN ×2 (11:22→12:22)
[2022-01-30] MEDS ORDERED: XANAX PO PRN ×2 (14:03→15:53)
--- NOTE | 2022-01-30 15:39 | PCM.PROG ---
Progress Note Progress Note for Day of Date of Exam: 01/30/22 Subjective Subjective: The patient is alert and awake this morning. He had no significant problems overnight. He did request yesterday evening for his pain medicine. We restarted his methadone last night. He does reportedly take Xanax for anxiety 1 mg 3 times daily and trazodone for insomnia at bedtime. It is noted that he has small acetone now which is much improved since yesterday. He no longer has acidosis. We will start him on a diabetic diet this morning. We will continue with the insulin drip per protocol until his acetone was negative. Once that is negative we will go ahead and discharge him home. Also noted his white blood cell count is much improved since yesterday. He is down to just over 70,000 today. Past Medical Family Social History Allergies: Allergies No Known Drug Allergies Allergy (Verified 10/07/21 16:28) Review of Systems ROS: No change since H&P Vital Signs and I&O's Vital Signs: Temperature 97.8 F Pulse Rate 81 Respiratory Rate 12 Blood Pressure [Left Arm] 133/84 Blood Pressure [Right Arm] 132/81 Blood Pressure 140/82 O2 Sat by Pulse Oximetry 97 Intake and Output: Intake & Output 01/28/22 01/29/22 01/30/22 01/31/22 11:59 11:59 11:59 11:59 Intake Total 2926 / 2926 2 / 2 Output Total 1750 / 1750 Balance 1176 / 1176 2 / 2 Physical Exam Oriented: Normal, Time, Person and Place Eyes: Normal Ear: Normal Nose: Normal Throat: Normal Respiratory: Normal Cardiovascular: Normal : Normal Tenderness: Normal Skin: Normal Musculoskeletal: Normal Psychiatric: Normal Mood Description: Calm Affect: Normal Speech Pattern: Clear Laboratory and Diagnostics Result Diagrams: 01/30/22 05:05 01/30/22 05:05 Labs: Laboratory WBC 17.6 X10^3/uL (3.6-10.0) H D 01/30/22 05:05 RBC 4.32 X10^6/uL (4.7-6.0) L 01/30/22 05:05 Hgb 11.7 g/dL (13.5-18.0) L D 01/30/22 05:05 Hct 35.0 % (42.0-54.0) L 01/30/22 05:05 MCV 81.1 fL (80.0-100.0) 01/30/22 05:05 MCH 27.1 pg (27.0-34.0) 01/30/22 05:05 MCHC 33.4 g/dL (33.0-35.0) 01/30/22 05:05 RDW 15.0 % (11.6-16.5) 01/30/22 05:05 Plt Count 234 X10^3/uL (150.0-450.0) 01/30/22 05:05 Plt Count Comment Adequate (ADEQUATE) 01/29/22 07:15 MPV 7.6 fL (7.4-11.0) 01/30/22 05:05 Neut % (Auto) 63.6 % (42.0-75.0) 01/30/22 05:05 Lymph % (Auto) 25.8 % (21.0-51.0) 01/30/22 05:05 [place] % (Auto) 10.3 % (0.0-13.0) 01/30/22 05:05 Eos % (Auto) 0.2 % (0.9-2.9) L 01/30/22 05:05 Baso % (Auto) 0.1 % (0.2-1.0) L 01/30/22 05:05 Neut # (Auto) 11.2 x10^3/uL (2.2-4.8) H 01/30/22 05:05 Lymph # (Auto) 4.5 X10^3/uL (1.3-2.9) H 01/30/22 05:05 [place] # (Auto) 1.8 x10^3/uL (0.3-0.8) H 01/30/22 05:05 Eos # (Auto) 0.0 x10^3/uL (0.0-0.2) 01/30/22 05:05 Baso # (Auto) 0.0 X10^3/uL (0.0-0.1) 01/30/22 05:05 Absolute Nucleated RBC 0.1 /100WBC 01/30/22 05:05 Total Counted 100 01/29/22 07:15 Neutrophils % (Manual) 72 % (39-76) 01/29/22 07:15 Band Neutrophils % 14 % (0-10) H 01/29/22 07:15 Lymphocytes % (Manual) 11 % (13-43) L 01/29/22 07:15 Monocytes % (Manual) 3 % (4-9) L 01/29/22 07:15 Plt Morphology Comment Normal (NORMAL) 01/29/22 07:15 RBC Morphology Normal (NORMAL) 01/29/22 07:15 Sample Site Rr 01/30/22 05:00 ABG pH 7.410 (7.35-7.45) 01/30/22 05:00 ABG pCO2 35.0 mmHg (35.0-45.0) 01/30/22 05:00 ABG pO2 99.0 mmHg (80.0-100.0) 01/30/22 05:00 ABG HCO3 22.2 mmol/L (22-26) 01/30/22 05:00 ABG O2 Saturation 98.0 % (90-100) 01/30/22 05:00 ABG Base Excess -1.9 mmol/L (-2.0-2.0) 01/30/22 05:00 Geoff Test Pos 01/30/22 05:00 A-a Gradient 7.0 mmHg 01/30/22 05:00 FiO2 21.0 01/30/22 05:00 Blood Gas Comments Marva well 01/30/22 05:00 Sodium 140 mmol/L (136-145) 01/30/22 05:05 Corrected Sodium 141 mmol/L (136-145) 01/30/22 05:05 Potassium 3.5 mmol/L (3.5-5.1) 01/30/22 05:05 Chloride 106 mmol/L (98-107) 01/30/22 05:05 Carbon Dioxide 24.8 mmol/L (21-32) 01/30/22 05:05 BUN 12 mg/dL (7-18) 01/30/22 05:05 Creatinine 1.16 mg/dL (0.70-1.30) 01/30/22 05:05 Est GFR (MDRD) Af Amer > 60 (>60) 01/30/22 05:05 Est GFR (MDRD) Non-Af > 60 (>60) 01/30/22 05:05 Glucose 145 mg/dL (65-99) H 01/30/22 05:05 POC Glucose (mg/dL) 195 mg/dL (65-99) H 01/30/22 15:23 Lactic Acid 0.8 mmol/L (0.4-2.0) 01/30/22 05:05 Calcium 8.1 mg/dL (8.5-10.1) L 01/30/22 05:05 Corrected Calcium 8.8 mg/dL (8.5-10.1) 01/30/22 05:05 Magnesium 1.5 mg/dL (1.7-2.9) L 01/30/22 09:34 Total Bilirubin 0.90 mg/dL (0.2-1.0) 01/30/22 05:05 AST 12 Units/L (15-37) L 01/30/22 05:05 ALT 16 Units/L (12-78) 01/30/22 05:05 Alkaline Phosphatase 84 Units/L (46-116) 01/30/22 05:05 Total Protein 6.6 g/dL (6.4-8.2) 01/30/22 05:05 Albumin 3.1 g/dL (3.4-5.0) L 01/30/22 05:05 Globulin 3.5 g/dL (2.5-4.5) 01/30/22 05:05 Albumin/Globulin Ratio 0.9 Ratio (1.1-2.1) L 01/30/22 05:05 Specimen Type Clean catch urine 01/29/22 08:49 Urine Color Pale yellow (YELLOW) 01/29/22 08:49 Urine Appearance Clear (CLEAR) 01/29/22 08:49 Urine pH 5.0 (5.0 - 8.0) 01/29/22 08:49 Ur Specific [place] 1.020 (1.000-1.030) 01/29/22 08:49 Urine Protein 2+ (NEGATIVE) 01/29/22 08:49 Urine Glucose (UA) 4+ (NEGATIVE) 01/29/22 08:49 Urine Ketones 4+ (NEGATIVE) 01/29/22 08:49 Urine Blood Negative (NEGATIVE) 01/29/22 08:49 Urine Nitrite Negative (NEGATIVE) 01/29/22 08:49 Urine Bilirubin Negative (NEGATIVE) 01/29/22 08:49 Urine Urobilinogen Normal (NORMAL) 01/29/22 08:49 Ur Leukocyte Esterase Negative (NEGATIVE) 01/29/22 08:49 Urine RBC 0-2 /HPF (0-3) 01/29/22 08:49 Urine WBC 0-2 /HPF (0-5) 01/29/22 08:49 Ur Squamous Epith Cells Rare /HPF (NEGATIVE) 01/29/22 08:49 Urine Bacteria Negative /HPF (NEGATIVE) 01/29/22 08:49 Urine Yeast Rare /HPF (NEGATIVE) 01/29/22 08:49 Ur Culture Indicated? No/not indicated 01/29/22 08:49 Urine Opiates Screen Negative (NEG=<300) 01/29/22 08:49 Urine Methadone Screen Positive (NEG=<300) 01/29/22 08:49 Ur Barbiturates Screen Negative (NEG=<200) 01/29/22 08:49 Ur Phencyclidine Scrn Negative (NEG=<25) 01/29/22 08:49 Ur Amphetamines Screen Negative (NEG=<1000) 01/29/22 08:49 U Benzodiazepines Scrn Positive (NEG=<200) 01/29/22 08:49 Urine Cocaine Screen Negative (NEG=<300) 01/29/22 08:49 U Marijuana (THC) Screen Negative (NEG=<50) 01/29/22 08:49 Acetone, Semi-Quant Small (NEGATIVE) H 01/29/22 16:45 SARS-CoV-2 (PCR) Negative (NEGATIVE) 01/29/22 07:48 Influenza Type A (PCR) Negative (NEGATIVE) 01/29/22 07:48 Influenza Type B (PCR) Negative (NEGATIVE) 01/29/22 07:48 RSV (PCR) Negative (NEGATIVE) 01/29/22 07:48 Plan (1) DKA (diabetic ketoacidosis): Status: Acute Plan: Insulin drip per protocol along with diabetic ketoacidosis protocol. Recheck serum acetone in the morning and continue normal saline at 125 cc/L. Recheck CMP in the a.m. (2) Leucocytosis: Status: Acute Narrative Support Text: Improving. Plan: Follow-up blood cultures when available and will empirically treat with IV Zosyn. (3) Chronic pain: Status: Acute Plan: We will plan on resuming patient's methadone if needed. (4) Opioid dependence: Status: Chronic Qualifiers: Substance use status: with unspecified opioid-induced disorder Qualified Code(s): F11.29 - Opioid dependence with unspecified opioid-induced disorder Plan: Monitor for opioid withdrawals. (5) Essential hypertension, benign: Status: Chronic Narrative Support Text: Patient patient's tachycardia has improved since restarting his metoprolol. Plan: Monitor the patient's blood pressure and treat accordingly if his blood pressure becomes elevated. (6) Dehydration: Status: Acute Narrative Support Text: Improved since admission. BUN 12 creatinine 1.16 today Plan: Normal saline at 125 cc/h. (7) Anxiety: Status: Chronic Plan: Resume patient's Xanax 1 mg 3 times daily.
[2022-01-30 18:14] VITALS: BP 167/89
[2022-01-30] MEDS ORDERED: DESYREL PO SCH (21:00)
--- NOTE | 2022-01-30 21:45 | DR.OPNOTE ---
OP NOTE Pre-Op Diagnosis: sepsis, unknown etiology, lack of IV access. Post-Op Diagnosis: same Procedure Date Date Of Procedure: 01/29/22 Procedure: PROCEDURE : LEFT SUBCLAVIAN VEIN TRIPLE LUMEN CATHETER PLACEMENT NARRATIVE: The patient was placed in Trendelenburg position and the left chest and left neck prepped and draped in sterile fashion. The skin underlying the left clavicle infiltrated with 1% Xylocaine. 16-gauge needle used to puncture t he subclavian vein without difficulty and guide wire placed. Incision made over the guide wire at the skin edge with a number 11 knife blade and a dilator placed over the guide wire into the subclavian vein. The dilator was removed and the catheter placed over the wire and placed into the subclavian vein. Guide wire removed. All ports were aspirated of blood and flushed with heparinized saline . Catheter secured to the skin with interrupted silk sutures and an anti- microbial patch placed around the skin entrance. Post procedure chest x- ray showed good placement of the subclavian vein catheter with no pneumothorax. Type of Anesthesia: Local (1 % Xylocaine) EBL: minimal Complications:: one Disposition/Condition: Pt. tolerated procedure without difficulty. Post procedure CXR showed good placement of the centrl venous catheter and no pneumothorax.
== END 2022-01-30 19:40 | disposition home or self-care (01) | DRG 639 ==
LOC: ER 06:49 → ICU 11:11
PROVIDERS: ADMIT Family Medicine; ATTEND Family Medicine
DX: R11.2 Nausea with vomiting, unspecified; F11.29 Opioid dependence with unspecified opioid-induced disorder; F41.8 Other specified anxiety disorders; I10 Essential (primary) hypertension; Z20.822 Contact with and (suspected) exposure to COVID-19; E86.0 Dehydration; I87.2 Venous insufficiency (chronic) (peripheral); E11.10 Type 2 diabetes mellitus with ketoacidosis without coma; Z53.29 Procedure and treatment not carried out because of patient's decision for other reasons

== ENCOUNTER 2023-03-10 16:50 | Inpatient (IN) ==
--- NOTE | 2023-03-10 17:32 | EKG ---
Test Reason : dka Blood Pressure : */* mmHG Vent. Rate : 144 BPM Atrial Rate : * BPM P-R Int : * ms QRS Dur : 110 ms QT Int : 374 ms P-R-T Axes : * -71 78 degrees QTc Int : 579 ms Sinus tachycardia Incomplete right bundle branch block Left anterior fascicular block Minimal voltage criteria for LVH, may be normal variant ( [place] product ) Abnormal ECG No previous ECGs available Confirmed by Willie Hoover ([id number]) on 03/13/2023 7:50:47 AM Referred By: Confirmed By: Willie Hoover
[2023-03-10] MEDS ORDERED: NS 1,000 ML IV 1,000 ML ONE ×3 (17:36→21:31)
[2023-03-10 17:38] LABS: ABG HCO3 < 3.0 mmol/L (22-26)
[2023-03-10 17:39] LABS: ABG ALLEN TEST POS
[2023-03-10] MEDS ORDERED: SODIUM BICARBONATE 8.4% INJ ADULT ONE ×3 (17:51→18:01)
[2023-03-10] MEDS ORDERED: NS 1,000 ML IV 1,000 ML IV ONE ×3 (17:53→21:33)
[2023-03-10] MEDS ORDERED: SODIUM BICARBONATE 8.4% INJ ADULT IVP ONE ×2 (17:53→17:58)
[2023-03-10 17:55] LABS: SERUM ACETONE MODERATE (NEGATIVE)
[2023-03-10 17:57] LABS: HEMOGLOBIN 14.9 g/dL (13.5-18.0)
[2023-03-10] MEDS ORDERED: SODIUM BICARBONATE 8.4% INJ ADULT 100 ML in NS 1/2 1,000 ML IV 1,000 ML IV ONE (17:58)
--- NOTE | 2023-03-10 17:59 | DR.HYPOGLY ---
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 Chief Complaint:: patient brought in by [facility] ems unresponsive but breathing patient responds to painful stimuli only ems states patient mother states she found him in his room like this. patient blood sugar greater than 600 per ems. COVID-19 Coronavirus risk:travel/contact w/high risk person: No Has patient experienced Coronavirus symptoms: No Source History Provided: EMS Mode of Arrival Mode of Arrival: Stretcher Timing Onset of Chief Complaint: 03/10/23 PMH PMH Past Medical History: Yes Past Medical History: Anxiety, Diabetes and Hypertension Past Surgical History: Yes Surgical History: Other Family History History of Family Medical Conditions: Yes Family Medical History: Diabetes Mellitus, Sudden Cardiac and Hypertension Social History Does patient currently use any type of tobacco product: Yes Have you used tobacco products in the last 12 months: Yes Type of Tobacco Use: Cigarettes Does any household member use tobacco: Yes Alcohol Use: None Do you use any recreational Drugs:: No Lives With: Family Lives Where: Home Travel Risk Coronavirus risk:travel/contact w/high risk person: No Has patient experienced Coronavirus symptoms: No Infectious screening In the last 2 months have you had wt loss of >10#?: NO Have you had fever, night sweats or hemotysis?: No Have you traveled outside the country in the last 6 months?: No Isolation: Standard ROS Review of Systems Constitutional: Weakness, Fatigue and Other (near syncope) Eyes: No Symptoms Reported ENTM: No Symptoms Reported Respiratoy: No Symptoms Reported Cardiovascular: No Symptoms Reported Gastrointestinal/Abdominal: No Symptoms Reported Genitourinary: No Symptoms Reported Neurological: Other (obtunded) Musculoskeletal: No Symptoms Reported Integumentary: No Symptoms Reported Hematologic/Lymphatic: No Symptoms Reported Endocrine: Other (obtunded due to medical non compliance ) PE Vital Signs Vitals: Vital Signs Temperature 98.1 F Pulse Rate 138 Pulse Rate 135 Pulse Rate 138 Pulse Rate 137 Pulse Rate 137 Pulse Rate 139 Pulse Rate 138 Pulse Rate 137 Pulse Rate 143 Pulse Rate 139 Pulse Rate 140 Pulse Rate 138 Pulse Rate 137 Pulse Rate 135 Pulse Rate 140 Pulse Rate 136 Pulse Rate 132 Pulse Rate 132 Pulse Rate 131 Pulse Rate 130 Pulse Rate 130 Pulse Rate 130 Pulse Rate 132 Pulse Rate 134 Pulse Rate 132 Pulse Rate 131 Pulse Rate 132 Pulse Rate 133 Pulse Rate 133 Pulse Rate 135 Pulse Rate 141 Pulse Rate 149 Pulse Rate 143 Pulse Rate 144 Pulse Rate 146 Pulse Rate 146 Respiratory Rate 38 Respiratory Rate 35 Respiratory Rate 34 Respiratory Rate 18 Respiratory Rate 16 Respiratory Rate 17 Respiratory Rate 19 Respiratory Rate 15 Respiratory Rate 16 Respiratory Rate 17 Respiratory Rate 17 Respiratory Rate 17 Respiratory Rate 17 Respiratory Rate 19 Respiratory Rate 16 Respiratory Rate 19 Respiratory Rate 19 Respiratory Rate 19 Respiratory Rate 18 Respiratory Rate 19 Respiratory Rate 19 Respiratory Rate 20 Respiratory Rate 20 Respiratory Rate 21 Respiratory Rate 22 Respiratory Rate 21 Respiratory Rate 23 Respiratory Rate 24 Respiratory Rate 24 Respiratory Rate 25 Respiratory Rate 26 Respiratory Rate 33 Respiratory Rate 39 Respiratory Rate 43 Respiratory Rate 43 Respiratory Rate 38 Blood Pressure 121/76 Blood Pressure 124/76 Blood Pressure 119/70 Blood Pressure 118/68 Blood Pressure 119/71 Blood Pressure 121/76 Blood Pressure 120/73 Blood Pressure 117/68 Blood Pressure 115/69 Blood Pressure 116/64 Blood Pressure 114/63 Blood Pressure 109/65 Blood Pressure 104/61 Blood Pressure 104/57 Blood Pressure 102/55 Blood Pressure 103/55 Blood Pressure 109/59 Blood Pressure 110/57 Blood Pressure 110/58 Blood Pressure 113/55 Blood Pressure 111/53 Blood Pressure 126/57 O2 Sat by Pulse Oximetry 100 O2 Sat by Pulse Oximetry 100 O2 Sat by Pulse Oximetry 100 O2 Sat by Pulse Oximetry 100 O2 Sat by Pulse Oximetry 100 O2 Sat by Pulse Oximetry 100 O2 Sat by Pulse Oximetry 100 O2 Sat by Pulse Oximetry 100 O2 Sat by Pulse Oximetry 100 O2 Sat by Pulse Oximetry 100 O2 Sat by Pulse Oximetry 100 O2 Sat by Pulse Oximetry 100 O2 Sat by Pulse Oximetry 100 O2 Sat by Pulse Oximetry 100 O2 Sat by Pulse Oximetry 100 O2 Sat by Pulse Oximetry 100 O2 Sat by Pulse Oximetry 100 O2 Sat by Pulse Oximetry 100 O2 Sat by Pulse Oximetry 100 O2 Sat by Pulse Oximetry 100 O2 Sat by Pulse Oximetry 100 O2 Sat by Pulse Oximetry 100 O2 Sat by Pulse Oximetry 100 O2 Sat by Pulse Oximetry 100 O2 Sat by Pulse Oximetry 100 O2 Sat by Pulse Oximetry 100 O2 Sat by Pulse Oximetry 100 O2 Sat by Pulse Oximetry 100 O2 Sat by Pulse Oximetry 100 O2 Sat by Pulse Oximetry 100 O2 Sat by Pulse Oximetry 100 O2 Sat by Pulse Oximetry 98 O2 Sat by Pulse Oximetry 98 O2 Sat by Pulse Oximetry 98 O2 Sat by Pulse Oximetry 97 O2 Sat by Pulse Oximetry 97 General Limitations: Physical Limitation (not ambulatory secondary to dka) General Appearance: Lethargic and Obtunded Eyes Eye exam: Normal Appearance Pupils: Regular, Round: Bilateral ENT ENT Exam: Normal Exam Nose Exam: Normal Nose Exam Mouth Exam: Normal Inspection Throat Exam: Normal Inspection Neck Neck Exam: Normal Inspection Chest Chest Inspection: Normal Inspection Respiratory Respiratory Exam: Normal Lung Sounds Bilat Respiratory Exam: Bilateral: Clear to Auscultation Cardiovascular Cardiovascular Exam: Regular Rate and Normal Rhythm Abdominal Exam Abdominal Exam: Normal Inspection Extremities Extremities Exam: Normal Inspection Back Back Exam: Normal Inspection Neurologic Neurological Exam: Other (obtunded) MDM Additional information Findings: diabetic ketoacidosis,renal insufficiency COURSE Treatment Treatment: Patient was started on a liter bolus of normal saline and was given 2 A of sodium bicarbonate since he had a pH of 7.1 and he was started on a bicarb drip. Patient also was given 10 units of regular insulin and was started on an insulin drip at 10 units/h. Patient had a lactic acid level of 5.9 initially she had a BUN of 28 creatinine 3.46. Patient had a blood sugar of 965 initially. We did give the patient has stated before he got 2 L of normal saline and he also got 2 A of sodium bicarb and he had a sodium bicarbonate drip going. He also had an insulin drip that was warm. Contact was made with Dr. Tavares at [phone] and he said patient was admitted to acute care [facility] Labs Reviewed Laboratory Results Reviewed?: Yes 03/10/23 17:28 03/10/23 20:45 Laboratory: WBC 35.7 X10^3/uL (3.6-10.0) H* 03/10/23 17:28 RBC 5.34 X10^6/uL (4.7-6.0) 03/10/23 17:28 Hgb 14.9 g/dL (13.5-18.0) 03/10/23 17:28 Hct 49.5 % (42.0-54.0) 03/10/23 17:28 MCV 92.6 fL (80.0-100.0) 03/10/23 17:28 MCH 27.9 pg (27.0-34.0) 03/10/23 17:28 MCHC 30.1 g/dL (33.0-35.0) L 03/10/23: RDW 14.8 % (11.6-16.5) 03/10/23: Plt Count 325 X10^3/uL (150.0-450.0) 03/10/23: MPV 9.4 fL (7.4-11.0) 03/10/23: Neut % (Auto) 72.9 % (42.0-75.0) 03/10/23: Lymph % (Auto) 16.5 % (21.0-51.0) L 03/10/23: [place] % (Auto) 9.8 % (0.0-13.0) 03/10/23: Eos % (Auto) 0.2 % (0.9-2.9) L 03/10/23: Baso % (Auto) 0.6 % (0.2-1.0) 03/10/23: Neut # (Auto) 26.0 x10^3/uL (2.2-4.8) H 03/10/23: Lymph # (Auto) 5.9 X10^3/uL (1.3-2.9) H 03/10/23: [place] # (Auto) 3.5 x10^3/uL (0.3-0.8) H 03/10/23: Eos # (Auto) 0.1 x10^3/uL (0.0-0.2) 03/10/23: Baso # (Auto) 0.2 X10^3/uL (0.0-0.1) H 03/10/23: Absolute Nucleated RBC 0.1 /100WBC 03/10/23: Sample Site Rrad 03/10/23 17:35 ABG pH 7.110 (7.35-7.45) L* 03/10/23 17:35 ABG pCO2 9.0 mmHg (35.0-45.0) L* 03/10/23 17:35 ABG pO2 126.0 mmHg (80.0-100.0) H 03/10/23 17:35 ABG HCO3 < 3.0 mmol/L (22-26) L* 03/10/23 17:35 ABG O2 Saturation Not Reportable 03/10/23 17:35 ABG Base Excess Not Reportable 03/10/23 17:35 Geoff Test Pos 03/10/23 17:35 A-a Gradient 12.0 mmHg 03/10/23 17:35 FiO2 21.0 03/10/23 17:35 Blood Gas Comments Marva well ms 03/10/23 17:35 Sodium 136 mmol/L (136-145) 03/10/23 18:04 Corrected Sodium 146 mmol/L (136-145) H 03/10/23 18:04 Potassium 5.8 mmol/L (3.5-5.1) H 03/10/23 18:04 Chloride 89 mmol/L (98-107) L 03/10/23 18:04 Carbon Dioxide 6.6 mmol/L (21-32) L* 03/10/23 18:04 BUN 28 mg/dL (7-18) H 03/10/23 18:04 Creatinine 3.46 mg/dL (0.70-1.30) H 03/10/23 18:04 Est GFR (MDRD) Af Amer 25 (>60) L 03/10/23 18:04 Est GFR (MDRD) Non-Af 21 (>60) L 03/10/23 18:04 Glucose 698 mg/dL (65-99) H* 03/10/23 20:45 POC Glucose (mg/dL) 566 mg/dL (65-99) H* 03/10/23 22:00 Lactic Acid 5.9 mmol/L (0.4-2.0) H* 03/10/23 17:28 Calcium 8.1 mg/dL (8.5-10.1) L 03/10/23 18:04 Corrected Calcium 8.8 mg/dL (8.5-10.1) 03/10/23 18:04 Total Bilirubin 0.90 mg/dL (0.2-1.0) 03/10/23 18:04 AST 12 Units/L (15-37) L 03/10/23 18:04 ALT 6 Units/L (12-78) L 03/10/23 18:04 Alkaline Phosphatase 86 Units/L (46-116) 03/10/23 18:04 Total Protein 6.5 g/dL (6.4-8.2) 03/10/23 18:04 Albumin 3.1 g/dL (3.4-5.0) L 03/10/23 18:04 Globulin 3.4 g/dL (2.5-4.5) 03/10/23 18:04 Albumin/Globulin Ratio 0.9 Ratio (1.1-2.1) L 03/10/23 18:04 Specimen Type Catherized urine 03/10/23 17:52 Urine Color Pale yellow (YELLOW) 03/10/23 17:52 Urine Appearance Clear (CLEAR) 03/10/23 17:52 Urine pH 6.0 (5.0 - 8.0) 03/10/23 17:52 Ur Specific [place] 1.025 (1.000-1.030) 03/10/23 17:52 Urine Protein 2+ (NEGATIVE) 03/10/23 17:52 Urine Glucose (UA) 4+ (NEGATIVE) 03/10/23 17:52 Urine Ketones 4+ (NEGATIVE) 03/10/23 17:52 Urine Blood Negative (NEGATIVE) 03/10/23 17:52 Urine Nitrite Negative (NEGATIVE) 03/10/23 17:52 Urine Bilirubin Negative (NEGATIVE) 03/10/23 17:52 Urine Urobilinogen Normal (NORMAL) 03/10/23 17:52 Ur Leukocyte Esterase Negative (NEGATIVE) 03/10/23 17:52 Urine RBC None seen /HPF (0-3) 03/10/23 17:52 Urine WBC None seen /HPF (0-5) 03/10/23 17:52 Ur Squamous Epith Cells Rare /HPF (NEGATIVE) 03/10/23 17:52 Urine Bacteria Trace /HPF (NEGATIVE) 03/10/23 17:52 Hyaline Casts Many /LPF (NEGATIVE) 03/10/23 17:52 Ur Culture Indicated? No/not indicated 03/10/23 17:52 Urine Opiates Screen Negative (NEG=<300) 03/10/23 17:52 Urine Methadone Screen Positive (NEG=<300) 03/10/23 17:52 Ur Barbiturates Screen Negative (NEG=<200) 03/10/23 17:52 Ur Phencyclidine Scrn Negative (NEG=<25) 03/10/23 17:52 Ur Amphetamines Screen Negative (NEG=<1000) 03/10/23 17:52 U Benzodiazepines Scrn Positive (NEG=<200) 03/10/23 17:52 Urine Cocaine Screen Negative (NEG=<300) 03/10/23 17:52 U Marijuana (THC) Screen Negative (NEG=<50) 03/10/23 17:52 Acetone, Semi-Quant Moderate (NEGATIVE) H 03/10/23 18:04 Opioid Opioid Risk Tool Family Hx of Substance Abuse: Illegal Drugs Personal Hx of Substance Abuse: Illegal Drugs Age (Ajit box if 16-45): Yes History of Preadolescent Sexual Abuse: No Psychological Disease: PTSD Total: 2 Total Score Risk Category: Low Risk Copyright: Fady ARTHUR predicting aberrant behaviors Discharge Plan Diagnosis Discharge Problem: Diabetic keto-acidosis, Leukocytosis (leucocytosis) Discharge Plan Patient Disposition: 09 ADMITTED INPATIENT Condition: Stable Prescriptions: No Action insulin glargine [Lantus U-100 Insulin] 100 unit/mL solution 10 unit SUBCUT DAILY Patient Comments: [NO ORIGINAL SIG] alprazolam 1 mg tablet 1 mg PO TID methadone 10 mg tablet 10 mg PO QID PRN famotidine 20 mg tablet 20 mg PO DAILY lisinopril 10 mg tablet 10 mg PO DAILY Novolin R Regular U100 Insulin 100 unit/mL solution 20 unit subcut BID Patient Comments: [NO ORIGINAL SIG] metoprolol succinate 25 mg tablet extended release 24 hr 25 mg PO BID Health Concerns: Post Hospitalization: new medications and changes needed to prevent readmission or further decline. Pt educated and given instructions on all concerns. Plan of Treatment: Continue with present treatment and follow up plan. Pt is to keep follow up appointment as instructed and take medications as ordered. Orders to Discharge Patient Discharge Orders: Transfer (Routine); Ordered 03/10/23 Ordered By: Guillermo Ernandez Follow ups/Referrals Follow ups/Referrals: NFD,None [Primary Care Provider] - 3 days
[2023-03-10] MEDS ORDERED: NS 1/2 1,000 ML IV 1,000 ML IV ONE (18:01)
[2023-03-10 18:02] LABS: BILIRUBIN,URINE NEGATIVE (NEGATIVE); BLOOD/HEMOGLOBIN,URINE NEGATIVE (NEGATIVE); GLUCOSE, URINE 4+ (NEGATIVE); KETONES,URINE 4+ (NEGATIVE); LEUKOCYTE ESTERASE ,URINE NEGATIVE (NEGATIVE); NITRITES,URINE NEGATIVE (NEGATIVE); PROTEIN,URINE 2+ (NEGATIVE); UROBILINOGEN,URINE NORMAL (NORMAL)
[2023-03-10 18:08] LABS: RED BLOOD COUNT 5.34 X10^6/uL (4.7-6.0)
[2023-03-10 18:09] LABS: HEMATOCRIT 49.5 % (42.0-54.0); LYMPHOCYTES % (AUTO) 16.5 % (21.0-51.0); MEAN CORPUSCULAR HEMOGLOBIN 27.9 pg (27.0-34.0); MEAN CORPUSCULAR HGB CONC 30.1 g/dL (33.0-35.0); MEAN CORPUSCULAR VOLUME 92.6 fL (80.0-100.0); MEAN PLATELET VOLUME 9.4 fL (7.4-11.0); MONOCYTES % (AUTO) 9.8 % (0.0-13.0); NEUTROPHILS % (AUTO) 72.9 % (42.0-75.0); PLATELET COUNT 325 X10^3/uL (150.0-450.0); RED CELL DISTRIBUTION WIDTH 14.8 % (11.6-16.5)
[2023-03-10 18:10] LABS: BASOPHILS # (AUTO) 0.2 X10^3/uL (0.0-0.1); BASOPHILS % (AUTO) 0.6 % (0.2-1.0); EOSINOPHILS # (AUTO) 0.1 x10^3/uL (0.0-0.2); EOSINOPHILS % (AUTO) 0.2 % (0.9-2.9); LYMPHOCYTES # (AUTO) 5.9 X10^3/uL (1.3-2.9); MONOCYTES # (AUTO) 3.5 x10^3/uL (0.3-0.8)
[2023-03-10 18:13] LABS: WHITE BLOOD COUNT 35.7 X10^3/uL (3.6-10.0)
--- NOTE | 2023-03-10 18:13 | RAD ---
EXAM:CHEST, 1 VIEWHISTORY:unresponsive but breathing patient responds to painful stimuli only ems states patient mother states she found him in his room like this. patient blood sugar greater than 600 per ems.;COMPARISON:January 29, 2022.TECHNIQUE:A single frontal view of the chest was obtained.FINDINGS:There are multiple EKG leads and wires seen overlying the patient. The heart is normal in size. There is no focal infiltrate. There is no effusion. There is no pneumothorax. The osseous structures are intact.IMPRESSION:No focal infiltrate or effusion.THIS IS AN ELECTRONICALLY VERIFIED FINAL [id number]/10/2023 6:10 PM - Electronically signed by Pauline Carpenter MD
[2023-03-10 18:16] LABS: APPEARANCE,URINE CLEAR (CLEAR); COLOR,URINE PALE YELLOW (YELLOW)
[2023-03-10 18:23] LABS: ALANINE AMINOTRANSFERASE 6 Units/L (12-78); ALBUMIN 3.1 g/dL (3.4-5.0); ALKALINE PHOSPHATASE 86 Units/L (46-116); ASPARTATE AMINO TRANSFERASE 12 Units/L (15-37); BLOOD UREA NITROGEN 28 mg/dL (7-18); CALCIUM 8.1 mg/dL (8.5-10.1); CHLORIDE 89 mmol/L (98-107); COR CA(FOR HYPOALB) 8.8 mg/dL (8.5-10.1); COR NA(FOR HYPERGLY) 146 mmol/L (136-145); CREATININE 3.46 mg/dL (0.70-1.30); POTASSIUM 5.8 mmol/L (3.5-5.1); SODIUM 136 mmol/L (136-145); TOTAL PROTEIN 6.5 g/dL (6.4-8.2); eGFR NON BLACK RACES 21 (>60)
[2023-03-10 18:25] LABS: CARBON DIOXIDE 6.6 mmol/L (21-32)
[2023-03-10 18:25] LABS: BACTERIA,URINE TRACE /HPF (NEGATIVE); HYALINE CASTS, URINE MANY /LPF (NEGATIVE); RBC,URINE NONE SEEN /HPF (0-3); SQUAMOUS EPITHELIAL CELL,UR RARE /HPF (NEGATIVE)
[2023-03-10 18:38] LABS: GLUCOSE 965 mg/dL (65-99)
[2023-03-10] MEDS ORDERED: ROCEPHIN VIAL 1 GRAM ONE (18:49)
[2023-03-10] MEDS ORDERED: ROCEPHIN VIAL 1 GRAM IVP STA (18:50)
[2023-03-10] MEDS ORDERED: NovoLIN R (or HumuLIN R) SUBCUT ONE (18:50)
[2023-03-10] MEDS ORDERED: NovoLIN R (or HumuLIN R) ONE ×2 (18:59→19:01)
[2023-03-10] MEDS: MYXREDLIN 100 UNIT/100 ML BAG 100 UNIT/100 ML PLAST..BAG IV PRN (19:00)
[2023-03-10] MEDS ORDERED: MYXREDLIN 100 UNIT/100 ML BAG 100 UNIT/100 ML PLAST..BAG IV ONE (19:04)
[2023-03-10] MEDS ORDERED: MYXREDLIN 100 UNIT/100 ML BAG 100 UNIT/100 ML PLAST..BAG IV PRN (22:13)
--- NOTE | 2023-03-10 22:39 | EKG ---
Test Reason : dka Blood Pressure : */* mmHG Vent. Rate : 142 BPM Atrial Rate : * BPM P-R Int : * ms QRS Dur : 90 ms QT Int : 378 ms P-R-T Axes : * -36 64 degrees QTc Int : 581 ms Sinus tachycardia Left axis deviation Abnormal ECG When compared with ECG of 10-MAR-2023 17:29, (Unconfirmed) Incomplete right bundle branch block is no longer present Confirmed by Willie Hoover ([id number]) on 03/13/2023 7:50:03 AM Referred By: Confirmed By: Willie Hoover
[2023-03-10 22:48] LABS: ABG BASE EXCESS -19.2 mmol/L (-2.0-2.0)
[2023-03-10 22:49] LABS: ABG HCO3 6.9 mmol/L (22-26)
[2023-03-10 22:50] LABS: ABG ALLEN TEST POS
[2023-03-10 23:04] LABS: HEMATOCRIT 39.7 % (42.0-54.0)
[2023-03-10 23:07] LABS: HEMOGLOBIN 12.7 g/dL (13.5-18.0)
[2023-03-10] MEDS ORDERED: PROTONIX INJ 40 MG VIAL ONE (23:07)
[2023-03-10] MEDS ORDERED: PROTONIX INJ 40 MG VIAL IVP ONE (23:12)
[2023-03-10 23:15] LABS: GASTRIC OCCULT BLOOD POSITIVE (NEGATIVE); PH,GASTRIC FLUID 4
[2023-03-10] MEDS ORDERED: LOPRESSOR INJ 5 MG AMP IVP ONE (23:24)
--- NOTE | 2023-03-11 01:51 | EKG ---
Test Reason : dka Blood Pressure : */* mmHG Vent. Rate : 111 BPM Atrial Rate : 111 BPM P-R Int : 176 ms QRS Dur : 100 ms QT Int : 342 ms P-R-T Axes : 73 -38 54 degrees QTc Int : 465 ms Sinus tachycardia Left axis deviation Incomplete right bundle branch block Septal infarct , age undetermined Abnormal ECG When compared with ECG of 10-MAR-2023 22:36, (Unconfirmed) Incomplete right bundle branch block is now present Septal infarct is now present Confirmed by Willie Hoover ([id number]) on 03/13/2023 7:49:18 AM Referred By: Confirmed By: Willie Hoover
[2023-03-11 03:00] LABS: CALCIUM 7.4 mg/dL (8.5-10.1); CARBON DIOXIDE 18.1 mmol/L (21-32); CREATININE 2.36 mg/dL (0.70-1.30)
[2023-03-11 03:04] LABS: POTASSIUM 2.7 mmol/L (3.5-5.1)
[2023-03-11] MEDS ORDERED: NS 1/2 1,000 ML IV 1,000 ML IV ONE (03:08)
[2023-03-11] MEDS: SODIUM BICARBONATE IV SCH ×4 (03:19→13:07)
[2023-03-11] MEDS: NS IV SCH ×4 (03:19→13:07)
[2023-03-11] MEDS ORDERED: TYLENOL SUPP 650 MG PR PRN (03:22)
[2023-03-11] MEDS ORDERED: CONSULT PHARMACY - POTASSIUM & MAGNESIUM XX SCH (03:30)
[2023-03-11] MEDS: K-RIDER 10 MEQ/NS 100 ML 10 MEQ/100 ML BAG IV SCH ×3 (03:40→06:17)
[2023-03-11] MEDS ORDERED: OFIRMEV IV 1000 MG VIAL 1,000 MG/100 ML VIAL IV PRN (05:12)
--- NOTE | 2023-03-11 05:30 | EKG ---
Test Reason : dka Blood Pressure : */* mmHG Vent. Rate : 112 BPM Atrial Rate : 112 BPM P-R Int : 162 ms QRS Dur : 88 ms QT Int : 336 ms P-R-T Axes : 57 -46 37 degrees QTc Int : 458 ms Sinus tachycardia Left anterior fascicular block Nonspecific ST and T wave abnormality Abnormal ECG When compared with ECG of 11-MAR-2023 01:29, (Unconfirmed) Criteria for Septal infarct are no longer present Nonspecific T wave abnormality, worse in Lateral leads Confirmed by Tyler Mcdonald MD ([id number]) on 03/12/2023 2:18:47 PM Referred By: Confirmed By: Tyler Mcdonald MD
[2023-03-11 05:38] LABS: ABG ALLEN TEST POS; ABG BASE EXCESS -2.4 mmol/L (-2.0-2.0); ABG HCO3 21.4 mmol/L (22-26)
[2023-03-11] MEDS: MYXREDLIN 100 UNIT/100 ML BAG 100 UNIT/100 ML PLAST..BAG IV PRN (06:28)
[2023-03-11] MEDS: MAGNESIUM SULFATE 1 GRAM/100 mL PREMIX 1 G/100 ML BAG IV SCH ×3 (07:06→08:46)
[2023-03-11 07:51] LABS: BASOPHILS # (AUTO) 0.1 X10^3/uL (0.0-0.1); BASOPHILS % (AUTO) 0.6 % (0.2-1.0); EOSINOPHILS % (AUTO) 0.1 % (0.9-2.9); HEMATOCRIT 38.6 % (42.0-54.0); HEMOGLOBIN 12.9 g/dL (13.5-18.0); LYMPHOCYTES # (AUTO) 2.2 X10^3/uL (1.3-2.9); LYMPHOCYTES % (AUTO) 14.2 % (21.0-51.0); MEAN CORPUSCULAR HEMOGLOBIN 27.7 pg (27.0-34.0); MEAN CORPUSCULAR HGB CONC 33.5 g/dL (33.0-35.0); MEAN CORPUSCULAR VOLUME 82.6 fL (80.0-100.0); MEAN PLATELET VOLUME 8.6 fL (7.4-11.0); MONOCYTES # (AUTO) 1.9 x10^3/uL (0.3-0.8); MONOCYTES % (AUTO) 12.4 % (0.0-13.0); NEUTROPHILS # (AUTO) 11.4 x10^3/uL (2.2-4.8); NEUTROPHILS % (AUTO) 72.7 % (42.0-75.0); PLATELET COUNT 202 X10^3/uL (150.0-450.0); RED BLOOD COUNT 4.68 X10^6/uL (4.7-6.0); RED CELL DISTRIBUTION WIDTH 13.3 % (11.6-16.5); WHITE BLOOD COUNT 15.7 X10^3/uL (3.6-10.0)
[2023-03-11 08:14] VITALS: BMI 24.7
[2023-03-11 08:18] LABS: CALCIUM 7.8 mg/dL (8.5-10.1); CARBON DIOXIDE 21.4 mmol/L (21-32); CREATININE 1.89 mg/dL (0.70-1.30); POTASSIUM 3.6 mmol/L (3.5-5.1)
[2023-03-11] MEDS ORDERED: ROCEPHIN VIAL 1 GRAM 1 G in NS 100 ML IV 100 ML IV SCH (10:11)
[2023-03-11] MEDS ORDERED: PROTONIX INJ 40 MG VIAL IVP SCH (11:00)
[2023-03-11 11:08] LABS: CALCIUM 7.9 mg/dL (8.5-10.1); CREATININE 2.03 mg/dL (0.70-1.30); POTASSIUM 3.2 mmol/L (3.5-5.1)
[2023-03-11] MEDS ORDERED: HEPARIN SODIUM IN D5W 25,000 UNITS/500 ML BAG IV PRN (12:26)
[2023-03-11] MEDS ORDERED: NITRO-BID OINT 2% UD (E.R. USE ONLY) TD ONE ×2 (12:27→15:07)
--- NOTE | 2023-03-11 12:31 | DR.UPDATE ---
H&P Update Prescription drug monitoring program results: PDMP was not reviewed H&P Reviewed: Yes Any changes to H&P?: No Patient was examined?: Yes Vital Signs: Temp Pulse Resp BP Pulse Ox O2 Del Method O2 Flow Rate 03/11/23 09:00 104 H 19 116/77 97 Nasal Cannula 2 03/11/23 08:00 101 F H 109 H 18 120/79 98 Nasal Cannula 2 03/11/23 07:00 112 H 20 135/86 94 L Nasal Cannula 2 03/11/23 07:00 Nasal Cannula 2 03/11/23 06:43 102.0 F H 03/11/23 05:10 18 03/11/23 05:00 102.0 F H 113 H 20 112/73 98 Nasal Cannula 2 03/11/23 04:00 101.3 F H 114 H 27 H 122/75 98 Nasal Cannula 2 03/11/23 03:00 107 H 27 H 132/86 98 Nasal Cannula 2 03/11/23 04:10 18 03/11/23 02:00 114 H 22 127/86 99 Nasal Cannula 2 03/11/23 01:00 113 H 21 127/85 97 Nasal Cannula 2 03/11/23 00:20 127/79 03/11/23 06:00 102.2 F H 112 H 20 117/75 94 L Nasal Cannula 2 03/11/23 00:00 98.1 F 134 H 17 127/79 96 Nasal Cannula 2 03/10/23 23:10 98.9 F 134 H 21 142/58 94 L Nasal Cannula 2 03/10/23 22:30 Nasal Cannula 2 03/10/23 23:17 141 H 22 03/10/23 23:16 142/58 03/10/23 23:03 95 03/10/23 23:00 134 H 21 95 03/10/23 23:00 126/73 03/10/23 22:53 127/77 03/10/23 22:53 137 H 22 94 L 03/10/23 22:45 141 H 24 92 L 03/10/23 22:34 141 H 27 H 91 L 03/10/23 22:20 129/70 03/10/23 22:20 145 H 20 95 03/10/23 22:15 138 H 0 L 100 03/10/23 22:14 134/79 03/10/23 22:14 138 H 0 L 99 03/10/23 22:52 Nasal Cannula 2 03/10/23 22:00 138 H 38 H 100 03/10/23 21:50 121/76 03/10/23 21:50 135 H 35 H 100 03/10/23 21:45 138 H 34 H 100 03/10/23 21:40 124/76 03/10/23 21:40 137 H 18 100 03/10/23 21:30 119/70 03/10/23 21:30 137 H 16 100 03/10/23 21:20 139 H 17 100 03/10/23 21:20 118/68 03/10/23 21:15 138 H 19 100 03/10/23 21:10 119/71 03/10/23 21:10 137 H 15 100 03/10/23 21:00 121/76 03/10/23 21:00 143 H 16 100 03/10/23 20:50 120/73 03/10/23 20:50 139 H 17 100 03/10/23 20:45 140 H 17 100 03/10/23 20:40 117/68 03/10/23 20:40 138 H 17 100 03/10/23 20:30 115/69 03/10/23 20:30 137 H 17 100 03/10/23 20:20 116/64 03/10/23 20:20 135 H 19 100 03/10/23 20:15 140 H 16 100 03/10/23 20:10 114/63 03/10/23 20:10 136 H 19 100 03/10/23 20:00 109/65 03/10/23 20:00 132 H 19 100 03/10/23 19:50 104/61 03/10/23 19:50 132 H 19 100 03/10/23 19:45 131 H 18 100 03/10/23 19:40 104/57 03/10/23 19:40 130 H 19 100 03/10/23 19:30 130 H 19 100 03/10/23 19:30 102/55 03/10/23 19:20 103/55 03/10/23 19:20 130 H 20 100 03/10/23 19:15 132 H 20 100 03/10/23 19:10 134 H 21 100 03/10/23 19:10 109/59 03/10/23 19:00 110/57 03/10/23 19:00 132 H 22 100 03/10/23 18:50 110/58 03/10/23 18:50 131 H 21 100 03/10/23 18:45 132 H 23 100 03/10/23 18:40 113/55 03/10/23 18:40 133 H 24 100 03/10/23 18:34 111/53 03/10/23 18:34 133 H 24 100 03/10/23 18:30 135 H 25 H 100 03/10/23 18:15 141 H 26 H 100 03/10/23 18:00 149 H 33 H 98 03/10/23 17:45 143 H 39 H 98 03/10/23 17:30 144 H 43 H 98 03/10/23 17:24 146 H 43 H 97 03/10/23 17:51 98.1 F 03/10/23 17:02 146 H 38 H 126/57 97 Room Air FiO2 03/11/23 09:00 03/11/23 08:00 03/11/23 07:00 03/11/23 07:00 03/11/23 06:43 03/11/23 05:10 03/11/23 05:00 03/11/23 04:00 03/11/23 03:00 03/11/23 04:10 03/11/23 02:00 03/11/23 01:00 03/11/23 00:20 03/11/23 06:00 03/11/23 00:00 03/10/23 23:10 03/10/23 22:30 03/10/23 23:17 03/10/23 23:16 03/10/23 23:03 03/10/23 23:00 03/10/23 23:00 03/10/23 22:53 03/10/23 22:53 03/10/23 22:45 03/10/23 22:34 03/10/23 22:20 03/10/23 22:20 03/10/23 22:15 03/10/23 22:14 03/10/23 22:14 03/10/23 22:52 28 03/10/23 22:00 03/10/23 21:50 03/10/23 21:50 03/10/23 21:45 03/10/23 21:40 03/10/23 21:40 03/10/23 21:30 03/10/23 21:30 03/10/23 21:20 03/10/23 21:20 03/10/23 21:15 03/10/23 21:10 03/10/23 21:10 03/10/23 21:00 03/10/23 21:00 03/10/23 20:50 03/10/23 20:50 03/10/23 20:45 03/10/23 20:40 03/10/23 20:40 03/10/23 20:30 03/10/23 20:30 03/10/23 20:20 03/10/23 20:20 03/10/23 20:15 03/10/23 20:10 03/10/23 20:10 03/10/23 20:00 03/10/23 20:00 03/10/23 19:50 03/10/23 19:50 03/10/23 19:45 03/10/23 19:40 03/10/23 19:40 03/10/23 19:30 03/10/23 19:30 03/10/23 19:20 03/10/23 19:20 03/10/23 19:15 03/10/23 19:10 03/10/23 19:10 03/10/23 19:00 03/10/23 19:00 03/10/23 18:50 03/10/23 18:50 03/10/23 18:45 03/10/23 18:40 03/10/23 18:40 03/10/23 18:34 03/10/23 18:34 03/10/23 18:30 03/10/23 18:15 03/10/23 18:00 03/10/23 17:45 03/10/23 17:30 03/10/23 17:24 03/10/23 17:51 03/10/23 17:02 Procedures (ALL) - Central Line Placement PCM.CLCO: written consent Time out performed: Yes Patient placed pm monitor/pulse ox: Yes MD prep: mask, gown, gloves, other Centrial line prep: chlorhexidine scrub, sterile drapes applied Local anesthsia used: lidocane 1% Ultrasound used for placement: Yes (RIJ thin and easily collapses, right cephalic v small, but adequate. ) Central line lumen ininserted: double (arrowpicc 5.5, cannulation visualized with u/s. 5cm exposed of 50cm untrimmed catheter.) Post procedure: good blood return, all ports aspirated, flushed,capped, sterile dressing applied Post procedure xray: tip oc catheter in good position (appears svc), no pneumothorax seen Patient tolerated procedure: Yes Complications: none
--- NOTE | 2023-03-11 12:52 | EKG ---
Test Reason : Elevated troponin Blood Pressure : */* mmHG Vent. Rate : 92 BPM Atrial Rate : 92 BPM P-R Int : 162 ms QRS Dur : 96 ms QT Int : 380 ms P-R-T Axes : 63 -55 -19 degrees QTc Int : 469 ms Normal sinus rhythm Left anterior fascicular block Abnormal ECG When compared with ECG of 11-MAR-2023 08:54, (Unconfirmed) No significant change was found Confirmed by Tyler Mcdonald MD ([id number]) on 03/12/2023 2:18:11 PM Referred By: Confirmed By: Tyler Mcdonald MD
[2023-03-11 13:00] VITALS: TEMP 99.1; O2SAT 98
[2023-03-11] MEDS ORDERED: HEPARIN SODIUM INJ 5000 UNITS IVP ONE (13:05)
--- NOTE | 2023-03-11 14:15 | DR.SSS ---
SHORT STAY SUMMARY Admission Date Date of Admission: 03/10/23 Discharge Date Discharge Date: 03/11/23 Admission Diagnoses Admission Diagnoses: 1. Altered mental status 2. Diabetic ketoacidosis 3. Acute dehydration 4. Hyperkalemia 5. Severe leukocytosis 6. Diabetes mellitus type 1 7. Chronic low back pain with radiculopathy 8. Hypertension 9. Diabetic gastroparesis Discharge Diagnoses Discharge Diagnoses: 1. Elevated troponin 2. Altered mental status 3. Diabetic ketoacidosis improving 4. Hypokalemia 5. Hypomagnesemia 6. Hyponatremia 7. Leukocytosis improved 8. Dehydration improving 9. Diabetes mellitus type 1 10. Hypertension stable 11. Diabetic gastroparesis stable Chief Complaint Chief Complaint: Altered mental status History of Present Illness History of Present Illness: This is a 42-year-old white male well-known to me. His mother found him in his room at home with altered mental status and unresponsive. EMS was called, and they checked the patient's blood sugar, which was over 600. They took him to [facility] emergency department and checked his blood sugar and labs; his blood sugar was over 900. He was found to be acidotic with a pH in the low sevens and a creatinine of greater than 3. He was started on IV fluid and started on IV bicarbonate as well. He was also started on an insulin drip per protocol to help drop down his insulin and potassium as well. The patient has had many admissions in the past, and we are very familiar with this gentleman and caring for him. He does not take good care of himself and also has a history of polysubstance abuse with opioids and benzodiazepines. After getting the patient stabilized, we admitted him to the ICU after 9:00 last night and kept him on the insulin drip per protocol, and we kept him on half- normal saline with 2 A of bicarb added to it. We repeated the ABG this morning, which showed that he had a pH that normalized to 7.42. Past Medical History Past Medical History: Anxiety, Diabetes and Hypertension Additional Medical History: DKA, Gastroparesis, Chronic Low Back Pain With Radiculopathy, Pancreatitis, UTI's Past Surgical History Surgical History: Unknown Additional Surgical History: [place] Teeth Surgically Removed Allergies Allergies Allergy/AdvReac Type Severity Reaction Status Date / Time No Known Drug Allergies Allergy Unknown Verified 03/10/23 18:07 Medications Home Medications: No Known Drug Allergies Allergy (Unknown, Verified 03/10/23 18:07) CONTINUE taking the following medications alprazolam 1 mg tablet 1 mg PO TID 03/10/23 [History] famotidine 20 mg tablet 20 mg PO DAILY 03/10/23 [History] insulin glargine 100 unit/mL subcutaneous solution (Lantus U-100 Insulin) 10 unit subcut DAILY 03/10/23 [History] insulin regular human 100 unit/mL injection solution (Novolin R Regular U-100 Insulin) 20 unit subcut BID 03/10/23 [History] lisinopril 10 mg tablet 10 mg PO DAILY 03/10/23 [History] methadone 10 mg tablet 10 mg PO QID PRN 03/10/23 [History] metoprolol succinate 25 mg tablet,extended release 24 hr 25 mg PO BID 03/10/23 [History] Family History Family Medical History: Diabetes Mellitus, Sudden Cardiac and Hypertension Social History Does patient currently use any type of tobacco product: Yes Have you used tobacco products in the last 12 months: Yes Type of Tobacco Use: Cigarettes Does any household member use tobacco: Yes Alcohol Use: None Drug Use: Prescription Drugs Review of Systems Constitutional: Other (Unable to take a review of systems because the patient is altered mental status does not answer questions at this time.) Physical Exam Vital Signs: Last Vital Signs Temp 99.1 F 03/11/23 12:00 Pulse 88 03/11/23 12:00 Resp 17 03/11/23 12:00 BP 125/80 03/11/23 12:00 Pulse Ox 98 03/11/23 12:00 O2 Del Method Nasal Cannula 03/11/23 12:00 O2 Flow Rate 2 03/11/23 12:00 FiO2 28 03/10/23 22:52 Oriented: Not Oriented and Unable to test Eyes: Normal and Other (Sluggish) Respiratory: Clear Throughout Cardiovascular: Normal Auscultation: Bowel Sounds: Normal Palpation: Normal Tenderness: Normal Skin: Decreased [place] Psychiatric: Other (Unable to test as patient is altered mental status) Labs Labs: Laboratory Last Values WBC 15.7 X10^3/uL (3.6-10.0) H D 03/11/23 07:40 RBC 4.68 X10^6/uL (4.7-6.0) L 03/11/23 07:40 Hgb 12.9 g/dL (13.5-18.0) L 03/11/23 07:40 Hct 38.6 % (42.0-54.0) L 03/11/23 07:40 MCV 82.6 fL (80.0-100.0) 03/11/23 07:40 MCH 27.7 pg (27.0-34.0) 03/11/23 07:40 MCHC 33.5 g/dL (33.0-35.0) 03/11/23 07:40 RDW 13.3 % (11.6-16.5) 03/11/23 07:40 Plt Count 202 X10^3/uL (150.0-450.0) 03/11/23 07:40 MPV 8.6 fL (7.4-11.0) 03/11/23 07:40 Neut % (Auto) 72.7 % (42.0-75.0) 03/11/23 07:40 Lymph % (Auto) 14.2 % (21.0-51.0) L 03/11/23 07:40 [place] % (Auto) 12.4 % (0.0-13.0) 03/11/23 07:40 Eos % (Auto) 0.1 % (0.9-2.9) L 03/11/23 07:40 Baso % (Auto) 0.6 % (0.2-1.0) 03/11/23 07:40 Neut # (Auto) 11.4 x10^3/uL (2.2-4.8) H 03/11/23 07:40 Lymph # (Auto) 2.2 X10^3/uL (1.3-2.9) 03/11/23 07:40 [place] # (Auto) 1.9 x10^3/uL (0.3-0.8) H 03/11/23 07:40 Eos # (Auto) 0.0 x10^3/uL (0.0-0.2) 03/11/23 07:40 Baso # (Auto) 0.1 X10^3/uL (0.0-0.1) 03/11/23 07:40 Absolute Nucleated RBC 0.0 /100WBC 03/11/23 07:40 PT 15.0 SECONDS (11.8-14.3) 03/11/23 12:51 INR Target Range - 03/11/23 12:51 INR 1.20 (0.8-1.3) 03/11/23 12:51 APTT 26.6 SECONDS (22.9-36.5) 03/11/23 12:51 PTT Comment - 03/11/23 12:51 Sample Site Rr 03/11/23 05:32 ABG pH 7.420 (7.35-7.45) 03/11/23 05:32 ABG pCO2 33.0 mmHg (35.0-45.0) L 03/11/23 05:32 ABG pO2 59.0 mmHg (80.0-100.0) L 03/11/23 05:32 ABG HCO3 21.4 mmol/L (22-26) L 03/11/23 05:32 ABG O2 Saturation 91.0 % (90-100) 03/11/23 05:32 ABG Base Excess -2.4 mmol/L (-2.0-2.0) L 03/11/23 05:32 Geoff Test Pos 03/11/23 05:32 A-a Gradient 99.0 mmHg 03/11/23 05:32 FiO2 28.0 03/11/23 05:32 Blood Gas Comments Marva well ae 03/11/23 05:32 Sodium 149 mmol/L (136-145) H 03/11/23 10:36 Corrected Sodium 151 mmol/L (136-145) H 03/11/23 10:36 Potassium 3.2 mmol/L (3.5-5.1) L 03/11/23 10:36 Chloride 108 mmol/L (98-107) H 03/11/23 10:36 Carbon Dioxide 29.0 mmol/L (21-32) 03/11/23 10:36 BUN 16 mg/dL (7-18) 03/11/23 10:36 Creatinine 2.03 mg/dL (0.70-1.30) H 03/11/23 10:36 Est GFR (MDRD) Af Amer 47 (>60) L 03/11/23 10:36 Est GFR (MDRD) Non-Af 39 (>60) L 03/11/23 10:36 Glucose 189 mg/dL (65-99) H 03/11/23 10:36 POC Glucose (mg/dL) 142 mg/dL (65-99) H 03/11/23 13:12 Lactic Acid 2.5 mmol/L (0.4-2.0) H 03/11/23 04:05 Calcium 7.9 mg/dL (8.5-10.1) L 03/11/23 10:36 Corrected Calcium Cancelled 03/10/23 22:10 Magnesium 2.0 mg/dL (2.0-2.9) 03/11/23 10:36 Total Bilirubin Cancelled 03/10/23 22:10 AST Cancelled 03/10/23 22:10 ALT Cancelled 03/10/23 22:10 Alkaline Phosphatase Cancelled 03/10/23 22:10 Troponin I High Sens 1678.4 ng/L (4.0-60.0) H* 03/11/23 10:36 Total Protein Cancelled 03/10/23 22:10 Albumin Cancelled 03/10/23 22:10 Globulin Cancelled 03/10/23 22:10 Albumin/Globulin Ratio Cancelled 03/10/23 22:10 Specimen Type Catherized urine 03/10/23 17:52 Urine Color Pale yellow (YELLOW) 03/10/23 17:52 Urine Appearance Clear (CLEAR) 03/10/23 17:52 Urine pH 6.0 (5.0 - 8.0) 03/10/23 17:52 Ur Specific [place] 1.025 (1.000-1.030) 03/10/23 17:52 Urine Protein 2+ (NEGATIVE) 03/10/23 17:52 Urine Glucose (UA) 4+ (NEGATIVE) 03/10/23 17:52 Urine Ketones 4+ (NEGATIVE) 03/10/23 17:52 Urine Blood Negative (NEGATIVE) 03/10/23 17:52 Urine Nitrite Negative (NEGATIVE) 03/10/23 17:52 Urine Bilirubin Negative (NEGATIVE) 03/10/23 17:52 Urine Urobilinogen Normal (NORMAL) 03/10/23 17:52 Ur Leukocyte Esterase Negative (NEGATIVE) 03/10/23 17:52 Urine RBC None seen /HPF (0-3) 03/10/23 17:52 Urine WBC None seen /HPF (0-5) 03/10/23 17:52 Ur Squamous Epith Cells Rare /HPF (NEGATIVE) 03/10/23 17:52 Urine Bacteria Trace /HPF (NEGATIVE) 03/10/23 17:52 Hyaline Casts Many /LPF (NEGATIVE) 03/10/23 17:52 Ur Culture Indicated? No/not indicated 03/10/23 17:52 Gastric Fluid pH 4 03/10/23 23:05 Gastric Occult Blood Positive (NEGATIVE) A 03/10/23 23:05 Urine Opiates Screen Negative (NEG=<300) 03/10/23 17:52 Urine Methadone Screen Positive (NEG=<300) 03/10/23 17:52 Ur Barbiturates Screen Negative (NEG=<200) 03/10/23 17:52 Ur Phencyclidine Scrn Negative (NEG=<25) 03/10/23 17:52 Ur Amphetamines Screen Negative (NEG=<1000) 03/10/23 17:52 U Benzodiazepines Scrn Positive (NEG=<200) 03/10/23 17:52 Urine Cocaine Screen Negative (NEG=<300) 03/10/23 17:52 U Marijuana (THC) Screen Negative (NEG=<50) 03/10/23 17:52 Acetone, Semi-Quant Moderate (NEGATIVE) H 03/10/23 22:10 Assessment/Plan (1) Diabetic keto-acidosis: 1: IV hydration along with insulin drip per protocol and electrolyte abnormality corrections as needed. (2) Leukocytosis (leucocytosis): 1: We have not found any source of infection however we have given the patient Rocephin and he responded with a decrease in his leukocytosis from over 30,000 to just over 15,000 this morning so we will continue him on IV Rocephin. His chest x-ray was clear from the ER and the urinalysis they did was also clear of infection. (3) Type I diabetes mellitus: 1: Insulin drip per protocol. (4) Essential hypertension, benign: 1: Monitor daily blood pressures. (5) Anxiety disorder: 1: Monitor daily anxiety levels. Treat with Xanax if appropriate. (6) Acute dehydration: 1: IV hydration with half-normal saline. (7) Hypokalemia: 1: We will use potassium replacement protocol to correct his low potassium levels. (8) Hypomagnesemia: 1: We will correct his low magnesium levels with the magnesium replacement protocol part in the potassium replacement protocol. (9) Hypernatremia: 1: We are not correcting the patient's hypernatremia with half-normal saline I do not want to give the patient D5W since he is in DKA at this time. (10) Elevated troponin: 1: I have just made arrangements with the hospitalist at [facility] [place]Note 2[place] in [place], [place], for the transfer of Mr. Jay Qureshi down there so they can consult cardiology to investigate why he is having elevated troponins today. This has not happened to this patient in the past, and he does not have any elevated ST depression or ST elevation on his EKG today, and I am not sure why this is happening. They have agreed to accept the patient and will be in transfer later today. Discharge Medications Discharge Medications: Home Medication List alprazolam 1 mg tablet 1 mg PO TID 03/10/23 [History] famotidine 20 mg tablet 20 mg PO DAILY 03/10/23 [History] insulin glargine 100 unit/mL subcutaneous solution (Lantus U-100 Insulin) 10 unit subcut DAILY 03/10/23 [History] insulin regular human 100 unit/mL injection solution (Novolin R Regular U-100 Insulin) 20 unit subcut BID 03/10/23 [History] lisinopril 10 mg tablet 10 mg PO DAILY 03/10/23 [History] methadone 10 mg tablet 10 mg PO QID PRN 03/10/23 [History] metoprolol succinate 25 mg tablet,extended release 24 hr 25 mg PO BID 03/10/23 [History] Prescriptions: Discharge Plan Discharge Plan Patient Disposition: 66 XFER CRIT ACCESS HOSP INP Condition: Stable Health Concerns: Post Hospitalization: new medications and changes needed to prevent readmission or further decline. Pt educated and given instructions on all concerns. Plan of Treatment: Continue with present treatment and follow up plan. Pt is to keep follow up appointment as instructed and take medications as ordered. Prescription drug monitoring program results: PDMP was not reviewed Prescriptions: Continued insulin glargine [Lantus U-100 Insulin] 100 unit/mL solution 10 unit SUBCUT DAILY Patient Comments: [NO ORIGINAL SIG] alprazolam 1 mg tablet 1 mg PO TID methadone 10 mg tablet 10 mg PO QID PRN famotidine 20 mg tablet 20 mg PO DAILY lisinopril 10 mg tablet 10 mg PO DAILY Novolin R Regular U100 Insulin 100 unit/mL solution 20 unit subcut BID Patient Comments: [NO ORIGINAL SIG] metoprolol succinate 25 mg tablet extended release 24 hr 25 mg PO BID Orders to Discharge Patient Discharge Orders: Discharge (Routine); Ordered 03/11/23 Ordered By: BOOGIE NEWMAN Discharge by Transfer to Outside Facility (Routine); Ordered 03/11/23 Ordered By: BOOGIE NEWMAN Follow ups/Referrals Follow ups/Referrals: [facility],None [Primary Care Provider] - 3 days Instructions Instructions: Type 1 Diabetes Mellitus, Self-Care, Adult
[2023-03-11 14:43] VITALS: BP 125/81; PULSE 96; RESP 20
[2023-03-11 14:51] LABS: ABG ALLEN TEST POS; ABG BASE EXCESS 1.9 mmol/L (-2.0-2.0); ABG HCO3 25.6 mmol/L (22-26)
--- NOTE | 2023-03-11 21:10 | RAD ---
EXAM:CHEST, 1 VIEWHISTORY:DKA RENAL INUFFICIENCY, PICC line placement;COMPARISON:March 10, 2023.TECHNIQUE:A single frontal view of the chest was obtained.FINDINGS:There are multiple EKG leads and wires seen overlying the patient. The heart is normal in size. There are scattered dense patchy focal alveolar infiltrates throughout the right lung. The left lung is obscured by the patient's overlying hand. There is no effusion. There is no pneumothorax. The osseous structures are intact.IMPRESSION:Diffuse patchy alveolar infiltrates of the right lung. This is consistent with pneumonia.THIS IS AN ELECTRONICALLY VERIFIED FINAL [id number]/11/2023 9:07 PM - Electronically signed by Pauline Carpenter MD
== END 2023-03-11 15:36 | disposition critical access hospital (66) | DRG 638 ==
LOC: ER 16:50 → ICU 22:25
PROVIDERS: ADMIT Family Medicine; ATTEND Family Medicine
DX: E87.6 Hypokalemia; K31.84 Gastroparesis; N28.9 Disorder of kidney and ureter, unspecified; E83.42 Hypomagnesemia; R77.8 Other specified abnormalities of plasma proteins; R41.82 Altered mental status, unspecified; R00.0 Tachycardia, unspecified; F41.8 Other specified anxiety disorders; I87.2 Venous insufficiency (chronic) (peripheral); E10.10 Type 1 diabetes mellitus with ketoacidosis without coma; I10 Essential (primary) hypertension; E87.0 Hyperosmolality and hypernatremia; E86.0 Dehydration

== ENCOUNTER 2023-05-04 16:45 | Inpatient (IN) ==
[2023-05-04] MEDS ORDERED: NS 1,000 ML IV 1,000 ML IV ONE ×2 (16:53→19:09)
[2023-05-04] MEDS ORDERED: PROTONIX INJ 40 MG VIAL IVP ONE (16:53)
--- NOTE | 2023-05-04 17:11 | DR.ABDMALE ---
HPI Time seen Time Seen by Provider: 05/04/23 16:53 PCP Primary Care Physician: Zan Complaint Chief Complaint Doctors Comments: 42-year-old male brought in for evaluation. Started getting ill several days ago. Having frequent nausea, vomiting and diffuse abdominal pain. States has been constipated. No known fever, chills. Has had a slight cough. Is an insulin-dependent diabetic, has been taking his insulin, states his sugars are running elevated. EMS had a blood glucose of greater than 400. Chief Complaint:: Patient reports nausea and vomiting x 3 days. BS in ambulance was 418. Patient lethargic and vomiting. COVID-19 Coronavirus risk:travel/contact w/high risk person: No Has patient experienced Coronavirus symptoms: No Reviewed Nurses Notes Review: Yes Source History provided by:: PATIENT Mode of arrival Mode of Arrival: Stretcher Timing Onset of Chief Complaint: 05/01/23 PMH PMH Past Medical History: Yes Past Medical History: Anxiety, Diabetes and Hypertension Past Surgical History: Yes Surgical History: Unknown Family History History of Family Medical Conditions: Yes Family Medical History: Diabetes Mellitus, Sudden Cardiac and Hypertension Social History Type of Tobacco Use: Cigarettes Alcohol Use: None Do you use any recreational Drugs:: No Lives With: Alone Lives Where: Home Travel Risk Coronavirus risk:travel/contact w/high risk person: No Has patient experienced Coronavirus symptoms: No Infectious screening Have you traveled outside the country in the last 6 months?: No Isolation: Standard ROS Review of Systems Constitutional: Weakness Eyes: No Symptoms Reported ENTM: No Symptoms Reported Respiratoy: Non-Productive Cough Cardiovascular: No Symptoms Reported Gastrointestinal/Abdominal: See HPI Genitourinary: No Symptoms Reported Neurological: Weakness Musculoskeletal: No Symptoms Reported Integumentary: No Symptoms Reported All Other Systems: Reviewed and Negative PE Vital Signs Vital Signs: Temp Pulse Pulse Resp BP BP Pulse Ox 05/04/23 19:00 129 H 14 132/78 98 05/04/23 18:15 117 H 13 99 05/04/23 18:00 117 H 14 99 05/04/23 18:00 132/72 05/04/23 17:45 105 H 19 98 05/04/23 17:30 113/57 05/04/23 17:30 97 H 18 98 05/04/23 17:18 90 10 L 96 05/04/23 16:46 97.6 F 92 H 11 L 114/72 96 05/04/23 16:48 97.6 F 92 H 11 L 114/72 96 O2 Del Method 05/04/23 19:00 Room Air 05/04/23 18:15 05/04/23 18:00 05/04/23 18:00 05/04/23 17:45 05/04/23 17:30 05/04/23 17:30 05/04/23 17:18 05/04/23 16:46 Room Air 05/04/23 16:48 General General Appearance: Alert and In No Apparent Distress Eyes Eye exam: PERRL and EOMI ENT ENT Exam: Mucous Membranes Dry Neck Neck Exam: Normal Inspection Respiratory Respiratory Exam: Normal Lung Sounds Bilat; negative Accessory Muscle Use or Respiratory Distress Cardiovascular Cardiovascular Exam: Regular Rate, Normal Rhythm and Normal Heart Sounds Abdominal Exam Abdominal Exam: Normal Bowel Sounds, Soft and Tenderness (All quadrants, no guarding rebound) Extremeties Extremities Exam: Normal Inspection; negative Edema Neurologic Neurological Exam: Alert, Oriented X3 and CN II-XII Intact; negative Motor Sensory Deficit Skin Skin Exam: Warm and Dry COURSE Treatment Treatment: 42-year-old male, insulin-dependent diabetic, ill for the past several days with nausea vomiting abdominal pain. Workup initiated. Patient given IV fluids, IV Zofran/Protonix. 1900 - -Labs shows a glucose to be elevated 476, bicarb markedly low 132 large amount of acetone in the serum. Patient was given a regular insulin, 8 units, IV bolus to start. Discussed with Dr. Tavares, covering the hospital for admissions, accepts the admission for DKA. Will give a second liter fluid here in the ER, with an amp of sodium bicarb in the liter. Will start an insulin drip. Pt admitted [facility] Labs Reviewed Laboratory Results Reviewed?: Yes 05/04/23 17:10 05/04/23 17:10 Laboratory: WBC 16.9 X10^3/uL (3.6-10.0) H 05/04/23 17:10 RBC 4.98 X10^6/uL (4.7-6.0) 05/04/23 17:10 Hgb 13.6 g/dL (13.5-18.0) 05/04/23 17:10 Hct 43.1 % (42.0-54.0) 05/04/23 17:10 MCV 86.5 fL (80.0-100.0) 05/04/23 17:10 MCH 27.3 pg (27.0-34.0) 05/04/23 17:10 MCHC 31.6 g/dL (33.0-35.0) L 05/04/23 17:10 RDW 14.0 % (11.6-16.5) 05/04/23 17:10 Plt Count 215 X10^3/uL (150.0-450.0) 05/04/23 17:10 MPV 9.1 fL (7.4-11.0) 05/04/23 17:10 Neut % (Auto) 66.8 % (42.0-75.0) 05/04/23 17:10 Lymph % (Auto) 28.0 % (21.0-51.0) 05/04/23 17:10 [place] % (Auto) 4.0 % (0.0-13.0) 05/04/23 17:10 Eos % (Auto) 0.5 % (0.9-2.9) L 05/04/23 17:10 Baso % (Auto) 0.7 % (0.2-1.0) 05/04/23 17:10 Neut # (Auto) 11.3 x10^3/uL (2.2-4.8) H 05/04/23 17:10 Lymph # (Auto) 4.7 X10^3/uL (1.3-2.9) H 05/04/23 17:10 [place] # (Auto) 0.7 x10^3/uL (0.3-0.8) 05/04/23 17:10 Eos # (Auto) 0.1 x10^3/uL (0.0-0.2) 05/04/23 17:10 Baso # (Auto) 0.1 X10^3/uL (0.0-0.1) 05/04/23 17:10 Absolute Nucleated RBC 0.0 /100WBC 05/04/23 17:10 Sample Site Rr 05/04/23 19:01 ABG pH 7.100 (7.35-7.45) L* 05/04/23 19:01 ABG pCO2 37.0 mmHg (35.0-45.0) 05/04/23 19:01 ABG pO2 105.0 mmHg (80.0-100.0) H 05/04/23 19:01 ABG HCO3 11.5 mmol/L (22-26) L* 05/04/23 19:01 ABG O2 Saturation 96.0 % (90-100) 05/04/23 19:01 ABG Base Excess -17.3 mmol/L (-2.0-2.0) L 05/04/23 19:01 Geoff Test Pos 05/04/23 19:01 A-a Gradient 48.0 mmHg 05/04/23 19:01 FiO2 28.0 05/04/23 19:01 Blood Gas Comments Pt reece well cdn 05/04/23 19:01 Sodium 136 mmol/L (136-145) 05/04/23 17:10 Corrected Sodium 145 mmol/L (136-145) 05/04/23 17:10 Potassium 3.9 mmol/L (3.5-5.1) 05/04/23 17:10 Chloride 95 mmol/L (98-107) L 05/04/23 17:10 Carbon Dioxide 13.2 mmol/L (21-32) L* 05/04/23 17:10 BUN 19 mg/dL (7-18) H 05/04/23 17:10 Creatinine 1.49 mg/dL (0.70-1.30) H 05/04/23 17:10 Est GFR (MDRD) Af Amer > 60 (>60) 05/04/23 17:10 Est GFR (MDRD) Non-Af 55 (>60) L 05/04/23 17:10 Glucose 476 mg/dL (65-99) H 05/04/23 17:10 POC Glucose (mg/dL) 365 mg/dL (65-99) H 05/04/23 19:21 Calcium 9.5 mg/dL (8.5-10.1) 05/04/23 17:10 Corrected Calcium TNP 05/04/23 17:10 Total Bilirubin 0.90 mg/dL (0.2-1.0) 05/04/23 17:10 AST 11 Units/L (15-37) L 05/04/23 17:10 ALT 7 Units/L (12-78) L 05/04/23 17:10 Alkaline Phosphatase 83 Units/L (46-116) 05/04/23 17:10 Total Protein 7.7 g/dL (6.4-8.2) 05/04/23 17:10 Albumin 3.5 g/dL (3.4-5.0) 05/04/23 17:10 Globulin 4.2 g/dL (2.5-4.5) 05/04/23 17:10 Albumin/Globulin Ratio 0.8 Ratio (1.1-2.1) L 05/04/23 17:10 Lipase 9 Units/L (16-77) L 05/04/23 17:10 Acetone, Semi-Quant Large (NEGATIVE) H 05/04/23 17:10 SARS-CoV-2 (PCR) Negative (NEGATIVE) 05/04/23 17:09 Influenza Type A (PCR) Negative (NEGATIVE) 05/04/23 17:09 Influenza Type B (PCR) Negative (NEGATIVE) 05/04/23 17:09 RSV (PCR) Negative (NEGATIVE) 05/04/23 17:09 Opioid Opioid Risk Tool Family Hx of Substance Abuse: Illegal Drugs Personal Hx of Substance Abuse: Illegal Drugs Age (Ajit box if 16-45): No History of Preadolescent Sexual Abuse: No Psychological Disease: PTSD Total: 1 Total Score Risk Category: Low Risk Copyright: Fady ARTHUR predicting aberrant behaviors Discharge Plan Diagnosis Discharge Problem: Diabetic keto-acidosis Discharge Plan Patient Disposition: 09 ADMITTED INPATIENT Condition: Stable Orders to Discharge Patient Discharge Orders: Transfer (Routine); Ordered 05/04/23 Ordered By: Valente Joseph
[2023-05-04] MEDS ORDERED: PROTONIX INJ 40 MG VIAL ONE (17:21)
[2023-05-04 17:26] LABS: BASOPHILS # (AUTO) 0.1 X10^3/uL (0.0-0.1); BASOPHILS % (AUTO) 0.7 % (0.2-1.0); EOSINOPHILS # (AUTO) 0.1 x10^3/uL (0.0-0.2); EOSINOPHILS % (AUTO) 0.5 % (0.9-2.9); HEMATOCRIT 43.1 % (42.0-54.0); HEMOGLOBIN 13.6 g/dL (13.5-18.0); LYMPHOCYTES # (AUTO) 4.7 X10^3/uL (1.3-2.9); MEAN CORPUSCULAR HEMOGLOBIN 27.3 pg (27.0-34.0); MEAN CORPUSCULAR HGB CONC 31.6 g/dL (33.0-35.0); MEAN CORPUSCULAR VOLUME 86.5 fL (80.0-100.0); MEAN PLATELET VOLUME 9.1 fL (7.4-11.0); MONOCYTES # (AUTO) 0.7 x10^3/uL (0.3-0.8); NEUTROPHILS # (AUTO) 11.3 x10^3/uL (2.2-4.8); NEUTROPHILS % (AUTO) 66.8 % (42.0-75.0); PLATELET COUNT 215 X10^3/uL (150.0-450.0); RED BLOOD COUNT 4.98 X10^6/uL (4.7-6.0); WHITE BLOOD COUNT 16.9 X10^3/uL (3.6-10.0)
[2023-05-04 17:36] LABS: SERUM ACETONE LARGE (NEGATIVE)
[2023-05-04 17:42] LABS: ALANINE AMINOTRANSFERASE 7 Units/L (12-78); ALBUMIN 3.5 g/dL (3.4-5.0); ALKALINE PHOSPHATASE 83 Units/L (46-116); ASPARTATE AMINO TRANSFERASE 11 Units/L (15-37); BLOOD UREA NITROGEN 19 mg/dL (7-18); CHLORIDE 95 mmol/L (98-107); COR NA(FOR HYPERGLY) 145 mmol/L (136-145); CREATININE 1.49 mg/dL (0.70-1.30); GLUCOSE 476 mg/dL (65-99); LIPASE 9 Units/L (16-77); POTASSIUM 3.9 mmol/L (3.5-5.1); SODIUM 136 mmol/L (136-145); TOTAL PROTEIN 7.7 g/dL (6.4-8.2); eGFR NON BLACK RACES 55 (>60)
[2023-05-04] MEDS ORDERED: COMPAZINE INJ IVP ONE (17:44)
[2023-05-04] MEDS ORDERED: NovoLIN R (or HumuLIN R) IV ONE (17:44)
[2023-05-04] MEDS ORDERED: BENADRYL INJ 50 MG VIAL IVP ONE (17:45)
[2023-05-04] MEDS ORDERED: COMPAZINE INJ ONE (17:45)
[2023-05-04] MEDS ORDERED: NovoLIN R (or HumuLIN R) ONE ×2 (17:46→17:51)
[2023-05-04] MEDS ORDERED: BENADRYL INJ 50 MG VIAL ONE (17:47)
[2023-05-04 17:48] LABS: CALCIUM 9.5 mg/dL (8.5-10.1)
[2023-05-04 17:54] LABS: CARBON DIOXIDE 13.2 mmol/L (21-32)
[2023-05-04] MEDS ORDERED: NS 1,000 ML IV 1,000 ML ONE (19:03)
[2023-05-04 19:05] LABS: ABG BASE EXCESS -17.3 mmol/L (-2.0-2.0)
[2023-05-04 19:06] LABS: ABG HCO3 11.5 mmol/L (22-26)
[2023-05-04 19:07] LABS: ABG ALLEN TEST POS
[2023-05-04] MEDS ORDERED: SODIUM BICARBONATE 8.4% INJ ADULT ONE (19:09)
[2023-05-04] MEDS ORDERED: SODIUM BICARBONATE 8.4% INJ ADULT IVP ONE (19:09)
[2023-05-04] MEDS ORDERED: MYXREDLIN 100 UNIT/100 ML BAG 100 UNIT/100 ML PLAST..BAG IV ONE (19:28)
[2023-05-04] MEDS ORDERED: ZOFRAN INJ 4 MG VIAL IVP PRN (19:28)
[2023-05-04] MEDS: MYXREDLIN 100 UNIT/100 ML BAG 100 UNIT/100 ML PLAST..BAG IV PRN (19:34)
[2023-05-04] MEDS ORDERED: SNACK - Diabetic Appropriate PO SCH (20:00)
[2023-05-04] MEDS ORDERED: D5 1/2 NS 1,000 ML 1,000 ML with POTASSIUM CHLORIDE INJ 10 MEQ VIAL 10 MEQ IV SCH ×2 (20:00)
[2023-05-04 21:31] LABS: BILIRUBIN,URINE NEGATIVE (NEGATIVE); BLOOD/HEMOGLOBIN,URINE 1+ (NEGATIVE); GLUCOSE, URINE 4+ (NEGATIVE); KETONES,URINE 4+ (NEGATIVE); LEUKOCYTE ESTERASE ,URINE NEGATIVE (NEGATIVE); NITRITES,URINE NEGATIVE (NEGATIVE); PROTEIN,URINE 1+ (NEGATIVE); UROBILINOGEN,URINE NORMAL (NORMAL)
[2023-05-04 21:36] LABS: APPEARANCE,URINE CLEAR (CLEAR); COLOR,URINE PALE YELLOW (YELLOW)
[2023-05-04 21:37] LABS: BACTERIA,URINE NEGATIVE /HPF (NEGATIVE); SQUAMOUS EPITHELIAL CELL,UR NEGATIVE /HPF (NEGATIVE)
[2023-05-04] MEDS ORDERED: CONSULT PHARMACY - POTASSIUM & MAGNESIUM XX SCH (21:45)
[2023-05-04] MEDS ORDERED: D5 1/2 NS 1,000 ML 1,000 ML IV SCH (22:00)
[2023-05-04] MEDS: D5 1/2 NS 1,000 ML 1,000 ML IV SCH (23:07)
[2023-05-05 04:46] LABS: BASOPHILS # (AUTO) 0.1 X10^3/uL (0.0-0.1); BASOPHILS % (AUTO) 0.5 % (0.2-1.0); LYMPHOCYTES # (AUTO) 2.4 X10^3/uL (1.3-2.9); LYMPHOCYTES % (AUTO) 13.8 % (21.0-51.0); MEAN CORPUSCULAR HEMOGLOBIN 27.3 pg (27.0-34.0); MEAN CORPUSCULAR VOLUME 85.3 fL (80.0-100.0); MEAN PLATELET VOLUME 8.5 fL (7.4-11.0); MONOCYTES # (AUTO) 1.1 x10^3/uL (0.3-0.8); MONOCYTES % (AUTO) 6.2 % (0.0-13.0); NEUTROPHILS # (AUTO) 13.9 x10^3/uL (2.2-4.8); NEUTROPHILS % (AUTO) 79.5 % (42.0-75.0); PLATELET COUNT 212 X10^3/uL (150.0-450.0); RED BLOOD COUNT 5.16 X10^6/uL (4.7-6.0); RED CELL DISTRIBUTION WIDTH 13.8 % (11.6-16.5); WHITE BLOOD COUNT 17.5 X10^3/uL (3.6-10.0)
[2023-05-05 05:03] LABS: ALANINE AMINOTRANSFERASE 13 Units/L (12-78); ALBUMIN 3.6 g/dL (3.4-5.0); ALKALINE PHOSPHATASE 88 Units/L (46-116); ASPARTATE AMINO TRANSFERASE 18 Units/L (15-37); BLOOD UREA NITROGEN 10 mg/dL (7-18); CARBON DIOXIDE 17.4 mmol/L (21-32); CHLORIDE 103 mmol/L (98-107); COR NA(FOR HYPERGLY) 143 mmol/L (136-145); CREATININE 1.45 mg/dL (0.70-1.30); GLUCOSE 213 mg/dL (65-99); MAGNESIUM 1.3 mg/dL (2.0-2.9); POTASSIUM 3.9 mmol/L (3.5-5.1); SODIUM 140 mmol/L (136-145); eGFR NON BLACK RACES 57 (>60)
[2023-05-05] MEDS: D5 1/2 NS 1,000 ML 1,000 ML IV SCH (05:35)
[2023-05-05] MEDS ORDERED: CONSULT PHARMACY - POTASSIUM & MAGNESIUM XX SCH (07:00)
[2023-05-05] MEDS: D5 1/2 NS 1,000 ML 1,000 ML with MAGNESIUM SULFATE 50% INJ VIAL 1 G IV SCH ×4 (08:10→16:40)
[2023-05-05] MEDS ORDERED: MAGNESIUM SULFATE 1 GRAM/100 mL PREMIX 1 G/100 ML BAG IV SCH (09:00)
[2023-05-05] MEDS: MYXREDLIN 100 UNIT/100 ML BAG 100 UNIT/100 ML PLAST..BAG IV PRN (16:39)
[2023-05-05] MEDS: METHADONE HCL PO PRN (18:25)
[2023-05-06] MEDS: D5 1/2 NS 1,000 ML 1,000 ML with MAGNESIUM SULFATE 50% INJ VIAL 1 G IV SCH ×8 (00:04→23:32)
[2023-05-06] MEDS: METHADONE HCL PO PRN ×5 (00:04→23:31)
[2023-05-06 05:26] LABS: BASOPHILS # (AUTO) 0.1 X10^3/uL (0.0-0.1); BASOPHILS % (AUTO) 0.6 % (0.2-1.0); EOSINOPHILS # (AUTO) 0.1 x10^3/uL (0.0-0.2); EOSINOPHILS % (AUTO) 0.5 % (0.9-2.9); HEMATOCRIT 39.2 % (42.0-54.0); HEMOGLOBIN 13.1 g/dL (13.5-18.0); LYMPHOCYTES # (AUTO) 4.2 X10^3/uL (1.3-2.9); LYMPHOCYTES % (AUTO) 33.5 % (21.0-51.0); MEAN CORPUSCULAR HEMOGLOBIN 27.6 pg (27.0-34.0); MEAN CORPUSCULAR HGB CONC 33.4 g/dL (33.0-35.0); MEAN CORPUSCULAR VOLUME 82.6 fL (80.0-100.0); MEAN PLATELET VOLUME 9.3 fL (7.4-11.0); MONOCYTES # (AUTO) 0.9 x10^3/uL (0.3-0.8); MONOCYTES % (AUTO) 6.9 % (0.0-13.0); NEUTROPHILS # (AUTO) 7.3 x10^3/uL (2.2-4.8); NEUTROPHILS % (AUTO) 58.5 % (42.0-75.0); PLATELET COUNT 161 X10^3/uL (150.0-450.0); RED BLOOD COUNT 4.75 X10^6/uL (4.7-6.0); RED CELL DISTRIBUTION WIDTH 13.7 % (11.6-16.5)
[2023-05-06 05:36] LABS: SERUM ACETONE SMALL (NEGATIVE)
[2023-05-06 05:37] LABS: BLOOD UREA NITROGEN 3 mg/dL (7-18); eGFR NON BLACK RACES > 60 (>60)
[2023-05-06 05:51] LABS: WHITE BLOOD COUNT 12.5 X10^3/uL (3.6-10.0)
[2023-05-06 05:55] LABS: ALANINE AMINOTRANSFERASE 15 Units/L (12-78); ALBUMIN 3.3 g/dL (3.4-5.0); ALKALINE PHOSPHATASE 77 Units/L (46-116); ASPARTATE AMINO TRANSFERASE 35 Units/L (15-37); CALCIUM 8.7 mg/dL (8.5-10.1); CARBON DIOXIDE 19.6 mmol/L (21-32); CHLORIDE 98 mmol/L (98-107); COR CA(FOR HYPOALB) 9.3 mg/dL (8.5-10.1); COR NA(FOR HYPERGLY) 135 mmol/L (136-145); CREATININE 0.21 mg/dL (0.70-1.30); GLUCOSE 178 mg/dL (65-99); POTASSIUM 3.4 mmol/L (3.5-5.1); SODIUM 133 mmol/L (136-145); TOTAL PROTEIN 7.5 g/dL (6.4-8.2)
[2023-05-06 06:08] LABS: PLATELET MORPHOLOGY COMMENT ABNORMAL (NORMAL)
[2023-05-06] MEDS ORDERED: CONSULT PHARMACY - POTASSIUM & MAGNESIUM XX SCH (07:00)
[2023-05-06] MEDS ORDERED: MICRO K EXTEN CAP 10 MEQ PO ONE ×2 (08:42→08:46)
[2023-05-06] MEDS ORDERED: MAGNESIUM SULFATE 1 GRAM/100 mL PREMIX 1 G/100 ML BAG IV SCH (09:00)
[2023-05-06] MEDS ORDERED: K-RIDER 10 MEQ/NS 100 ML 10 MEQ/100 ML BAG IV SCH (09:00)
[2023-05-06] MEDS ORDERED: K-DUR TAB 20 MEQ PO SCH (09:00)
[2023-05-06] MEDS ORDERED: XANAX ONE (09:39)
[2023-05-06] MEDS: XANAX PO SCH ×3 (09:42→21:25)
--- NOTE | 2023-05-06 11:28 | PCM.PROG ---
Progress Note Progress Note for Day of Date of Exam: 05/06/23 Subjective Subjective: Patient seen at bedside, no acute events overnight. He states he feels better, denies any N/V/D since yesterday. He has been tolerating liquids and wants to advance his diet. He is currently admitted for DKA. He remains on insulin drip at 2 units/hr. Labs/imaging reviewed - K:3.4 Ma.6 Plan: will advance diet to diabetic diet. Monitor glucose, follow insulin drip protocol. Replace electrolytes prn. Resume home meds, losartan, metoprolol succinate and trazodone. Continue home dose methadone and Xanax. Monitor AM labs/imaging. Past Medical Family Social History Allergies: Allergies No Known Drug Allergies Allergy (Unknown, Verified 03/10/23 18:07) Onset Date: 08/13/2019 Vital Signs and I&O's Vital Signs: Vital Signs Temperature 97.8 F Temperature 98.1 F Pulse Rate [Right Brachial] 85 Pulse Rate [Right Brachial] 88 Pulse Rate [Right Brachial] 96 Pulse Rate [Right Brachial] 95 Pulse Rate [Right Brachial] 97 Pulse Rate [Right Brachial] 96 Pulse Rate [Right Brachial] 97 Pulse Rate [Right Brachial] 97 Respiratory Rate 18 Respiratory Rate 18 Respiratory Rate 18 Respiratory Rate 18 Respiratory Rate 18 Respiratory Rate 16 Respiratory Rate 14 Respiratory Rate 16 Respiratory Rate 16 Respiratory Rate 16 Blood Pressure [Left Arm] 162/96 Blood Pressure [Left Arm] 149/96 Blood Pressure [Left Arm] 159/94 Blood Pressure [Left Arm] 160/89 Blood Pressure [Left Arm] 155/94 Blood Pressure [Left Arm] 163/91 Blood Pressure [Left Arm] 154/89 Blood Pressure [Left Arm] 143/79 O2 Sat by Pulse Oximetry 98 O2 Sat by Pulse Oximetry 96 O2 Sat by Pulse Oximetry 98 O2 Sat by Pulse Oximetry 98 O2 Sat by Pulse Oximetry 98 O2 Sat by Pulse Oximetry 98 O2 Sat by Pulse Oximetry 98 O2 Sat by Pulse Oximetry 98 Intake and Output: Intake & Output 05/03/23 05/04/23 05/05/23 05/06/23 23:59 23:59 23:59 23:59 Intake Total 884 / 884 3269 / 3269 1373.9 / 1373.9 Output Total 1000 / 1000 1100 / 1100 1600 / 1600 Balance -116 / -116 2169 / 2169 -226.1 / -226.1 Physical Exam Oriented: Normal Throat: Normal Respiratory: Normal Cardiovascular: Normal and Tachycardia Auscultation: Bowel Sounds: Normal Palpation: Normal Tenderness: Normal Skin: Normal Musculoskeletal: Normal Psychiatric: Normal Mood Description: Calm Affect: Normal Speech Pattern: Clear and Appropriate Laboratory and Diagnostics 05/06/23 04:30 05/06/23 04:30 Labs: Laboratory WBC 12.5 X10^3/uL (3.6-10.0) H 05/06/23 04:30 RBC 4.75 X10^6/uL (4.7-6.0) 05/06/23 04:30 Hgb 13.1 g/dL (13.5-18.0) L 05/06/23 04:30 Hct 39.2 % (42.0-54.0) L 05/06/23 04:30 MCV 82.6 fL (80.0-100.0) 05/06/23 04:30 MCH 27.6 pg (27.0-34.0) 05/06/23 04:30 MCHC 33.4 g/dL (33.0-35.0) 05/06/23 04:30 RDW 13.7 % (11.6-16.5) 05/06/23 04:30 Plt Count 161 X10^3/uL (150.0-450.0) 05/06/23 04:30 Plt Count Comment Adequate (ADEQUATE) 05/06/23 04:30 MPV 9.3 fL (7.4-11.0) 05/06/23 04:30 Neut % (Auto) 58.5 % (42.0-75.0) 05/06/23 04:30 Lymph % (Auto) 33.5 % (21.0-51.0) 05/06/23 04:30 [place] % (Auto) 6.9 % (0.0-13.0) 05/06/23 04:30 Eos % (Auto) 0.5 % (0.9-2.9) L 05/06/23 04:30 Baso % (Auto) 0.6 % (0.2-1.0) 05/06/23 04:30 Neut # (Auto) 7.3 x10^3/uL (2.2-4.8) H 05/06/23 04:30 Lymph # (Auto) 4.2 X10^3/uL (1.3-2.9) H 05/06/23 04:30 [place] # (Auto) 0.9 x10^3/uL (0.3-0.8) H 05/06/23 04:30 Eos # (Auto) 0.1 x10^3/uL (0.0-0.2) 05/06/23 04:30 Baso # (Auto) 0.1 X10^3/uL (0.0-0.1) 05/06/23 04:30 Absolute Nucleated RBC 0.1 /100WBC 05/06/23 04:30 Plt Clumps, EDTA Rare 05/06/23 04:30 Plt Morphology Comment Abnormal (NORMAL) 05/06/23 04:30 RBC Morphology Normal (NORMAL) 05/06/23 04:30 Sample Site Rr 05/04/23 19:01 ABG pH 7.100 (7.35-7.45) L* 05/04/23 19:01 ABG pCO2 37.0 mmHg (35.0-45.0) 05/04/23 19:01 ABG pO2 105.0 mmHg (80.0-100.0) H 05/04/23 19:01 ABG HCO3 11.5 mmol/L (22-26) L* 05/04/23 19:01 ABG O2 Saturation 96.0 % (90-100) 05/04/23 19:01 ABG Base Excess -17.3 mmol/L (-2.0-2.0) L 05/04/23 19:01 Geoff Test Pos 05/04/23 19:01 A-a Gradient 48.0 mmHg 05/04/23 19:01 FiO2 28.0 05/04/23 19:01 Blood Gas Comments Pt reece well cdn 05/04/23 19:01 Sodium 133 mmol/L (136-145) L 05/06/23 04:30 Corrected Sodium 135 mmol/L (136-145) L 05/06/23 04:30 Potassium 3.4 mmol/L (3.5-5.1) L 05/06/23 04:30 Chloride 98 mmol/L (98-107) 05/06/23 04:30 Carbon Dioxide 19.6 mmol/L (21-32) L 05/06/23 04:30 BUN 3 mg/dL (7-18) L 05/06/23 04:30 Creatinine 0.21 mg/dL (0.70-1.30) L 05/06/23 04:30 Est GFR (MDRD) Af Amer > 60 (>60) 05/06/23 04:30 Est GFR (MDRD) Non-Af > 60 (>60) 05/06/23 04:30 Glucose 178 mg/dL (65-99) H 05/06/23 04:30 POC Glucose (mg/dL) 189 mg/dL (65-99) H 05/06/23 10:39 Calcium 8.7 mg/dL (8.5-10.1) 05/06/23 04:30 Corrected Calcium 9.3 mg/dL (8.5-10.1) 05/06/23 04:30 Magnesium 1.6 mg/dL (2.0-2.9) L 05/06/23 04:30 Total Bilirubin 1.00 mg/dL (0.2-1.0) 05/06/23 04:30 AST 35 Units/L (15-37) 05/06/23 04:30 ALT 15 Units/L (12-78) 05/06/23 04:30 Alkaline Phosphatase 77 Units/L (46-116) 05/06/23 04:30 Total Protein 7.5 g/dL (6.4-8.2) 05/06/23 04:30 Albumin 3.3 g/dL (3.4-5.0) L 05/06/23 04:30 Globulin 4.2 g/dL (2.5-4.5) 05/06/23 04:30 Albumin/Globulin Ratio 0.8 Ratio (1.1-2.1) L 05/06/23 04:30 Lipase 9 Units/L (16-77) L 05/04/23 17:10 Specimen Type Clean catch urine 05/04/23 21:23 Urine Color Pale yellow (YELLOW) 05/04/23 21:23 Urine Appearance Clear (CLEAR) 05/04/23 21:23 Urine pH 6.0 (5.0 - 8.0) 05/04/23 21:23 Ur Specific [place] 1.025 (1.000-1.030) 05/04/23 21:23 Urine Protein 1+ (NEGATIVE) 05/04/23 21:23 Urine Glucose (UA) 4+ (NEGATIVE) 05/04/23 21:23 Urine Ketones 4+ (NEGATIVE) 05/04/23 21:23 Urine Blood 1+ (NEGATIVE) 05/04/23 21:23 Urine Nitrite Negative (NEGATIVE) 05/04/23 21:23 Urine Bilirubin Negative (NEGATIVE) 05/04/23 21:23 Urine Urobilinogen Normal (NORMAL) 05/04/23 21:23 Ur Leukocyte Esterase Negative (NEGATIVE) 05/04/23 21:23 Urine RBC 3-5 /HPF (0-3) A 05/04/23 21:23 Urine WBC 0-2 /HPF (0-5) 05/04/23 21:23 Ur Squamous Epith Cells Negative /HPF (NEGATIVE) 05/04/23 21:23 Urine Bacteria Negative /HPF (NEGATIVE) 05/04/23 21:23 Ur Culture Indicated? No/not indicated 05/04/23 21:23 Acetone, Semi-Quant Small (NEGATIVE) H 05/06/23 04:30 SARS-CoV-2 (PCR) Negative (NEGATIVE) 05/04/23 17:09 Influenza Type A (PCR) Negative (NEGATIVE) 05/04/23 17:09 Influenza Type B (PCR) Negative (NEGATIVE) 05/04/23 17:09 RSV (PCR) Negative (NEGATIVE) 05/04/23 17:09 Plan (1) Acute dehydration: Status: Acute (2) DKA (diabetic ketoacidosis): Status: Acute Qualifiers: Diabetes mellitus complication detail: without coma Diabetes mellitus type: type 1 Qualified Code(s): E10.10 - Type 1 diabetes mellitus with ketoacidosis without coma (3) Hypokalemia: Status: Acute (4) Hypomagnesemia: Status: Acute (5) Chronic pain: Status: Chronic Qualifiers: Chronic pain type: chronic pain syndrome Qualified Code(s): G89.4 - Chronic pain syndrome (6) Gastroparesis due to DM: Status: Chronic (7) HTN (hypertension): Status: Chronic Qualifiers: Hypertension type: primary hypertension Qualified Code(s): I10 - E ssential (primary) hypertension (8) Anxiety disorder: Status: Chronic Qualifiers: Anxiety disorder type: generalized anxiety disorder Qualified Code(s): F41.1 - Generalized anxiety disorder
[2023-05-06] MEDS: TOPROL XL PO SCH (11:32)
[2023-05-06] MEDS: COZAAR PO SCH (11:33)
[2023-05-06 17:20] VITALS: BMI 22.6
[2023-05-06] MEDS: DESYREL PO SCH (21:25)
[2023-05-06] MEDS: COLACE CAP 100 MG PO PRN (23:31)
[2023-05-07 04:38] LABS: BASOPHILS # (AUTO) 0.1 X10^3/uL (0.0-0.1); BASOPHILS % (AUTO) 0.7 % (0.2-1.0); EOSINOPHILS # (AUTO) 0.3 x10^3/uL (0.0-0.2); HEMATOCRIT 37.1 % (42.0-54.0); HEMOGLOBIN 12.4 g/dL (13.5-18.0); LYMPHOCYTES # (AUTO) 4.5 X10^3/uL (1.3-2.9); MEAN CORPUSCULAR HEMOGLOBIN 27.4 pg (27.0-34.0); MEAN CORPUSCULAR HGB CONC 33.3 g/dL (33.0-35.0); MEAN CORPUSCULAR VOLUME 82.2 fL (80.0-100.0); MEAN PLATELET VOLUME 8.1 fL (7.4-11.0); MONOCYTES # (AUTO) 0.7 x10^3/uL (0.3-0.8); NEUTROPHILS # (AUTO) 4.3 x10^3/uL (2.2-4.8); NEUTROPHILS % (AUTO) 43.3 % (42.0-75.0); PLATELET COUNT 155 X10^3/uL (150.0-450.0); RED BLOOD COUNT 4.51 X10^6/uL (4.7-6.0); RED CELL DISTRIBUTION WIDTH 13.6 % (11.6-16.5); WHITE BLOOD COUNT 9.9 X10^3/uL (3.6-10.0)
[2023-05-07 04:59] LABS: CHLORIDE 103 mmol/L (98-107); SODIUM 138 mmol/L (136-145)
[2023-05-07 05:08] LABS: POTASSIUM 2.8 mmol/L (3.5-5.1)
[2023-05-07 05:10] LABS: ALANINE AMINOTRANSFERASE 15 Units/L (12-78); ALBUMIN 2.8 g/dL (3.4-5.0); ALKALINE PHOSPHATASE 69 Units/L (46-116); ASPARTATE AMINO TRANSFERASE 27 Units/L (15-37); BLOOD UREA NITROGEN 1 mg/dL (7-18); CALCIUM 8.5 mg/dL (8.5-10.1); CARBON DIOXIDE 29.6 mmol/L (21-32); COR CA(FOR HYPOALB) 9.5 mg/dL (8.5-10.1); COR NA(FOR HYPERGLY) 142 mmol/L (136-145); CREATININE 0.91 mg/dL (0.70-1.30); GLUCOSE 265 mg/dL (65-99); MAGNESIUM 2.1 mg/dL (2.0-2.9); TOTAL PROTEIN 6.5 g/dL (6.4-8.2); eGFR NON BLACK RACES > 60 (>60)
[2023-05-07] MEDS: XANAX PO SCH ×3 (05:37→21:08)
[2023-05-07] MEDS: METHADONE HCL PO PRN ×3 (05:38→18:26)
[2023-05-07] MEDS ORDERED: CONSULT PHARMACY - POTASSIUM & MAGNESIUM XX SCH (06:00)
[2023-05-07] MEDS: D5 1/2 NS 1,000 ML 1,000 ML with MAGNESIUM SULFATE 50% INJ VIAL 1 G IV SCH ×4 (06:44→08:10)
[2023-05-07] MEDS ORDERED: K-DUR TAB 20 MEQ PO ONE ×3 (09:00→11:44)
[2023-05-07] MEDS: COZAAR PO SCH (10:26)
[2023-05-07] MEDS: TOPROL XL PO SCH ×3 (10:27→20:07)
--- NOTE | 2023-05-07 11:45 | PCM.PROG ---
Progress Note Progress Note for Day of Date of Exam: 05/07/23 Subjective Subjective: Patient seen at bedside, no acute events overnight. He is feeling better, tolerating PO intake. He has been on insulin drip overnight. His BP was slightly low this morning, losartan was held. Labs/imaging reviewed - K:2.8 Plan: stop insulin drip, start Lantus 15 units AM, overlap with drip for 1 hour. Add SSI. Change IVF to NS+KCl. Replace K prn, check K level in the evening. Mo nitor BP, resume losartan if SBP >120. Continue home dose methadone and Xanax. Monitor AM labs/imaging. Past Medical Family Social History Allergies: Allergies No Known Drug Allergies Allergy (Unknown, Verified 03/10/23 18:07) Onset Date: 08/13/2019 Vital Signs and I&O's Vital Signs: Vital Signs Temperature 98.0 F Pulse Rate [Right Brachial] 66 Pulse Rate [Right Brachial] 72 Pulse Rate [Right Brachial] 79 Pulse Rate 74 Pulse Rate 71 Pulse Rate 75 Pulse Rate 81 Pulse Rate 71 Pulse Rate 75 Pulse Rate 69 Pulse Rate 71 Respiratory Rate 8 Respiratory Rate 11 Respiratory Rate 9 Respiratory Rate 13 Respiratory Rate 16 Respiratory Rate 12 Respiratory Rate 9 Respiratory Rate 12 Respiratory Rate 16 Respiratory Rate 11 Respiratory Rate 12 Respiratory Rate 16 Respiratory Rate 12 Blood Pressure [Left Arm] 144/91 Blood Pressure [Left Arm] 119/84 Blood Pressure [Left Arm] 123/78 Blood Pressure 129/84 Blood Pressure 102/65 Blood Pressure 104/62 Blood Pressure 142/99 Blood Pressure 123/84 Blood Pressure 144/91 Blood Pressure 119/84 Blood Pressure 123/78 O2 Sat by Pulse Oximetry 97 O2 Sat by Pulse Oximetry 95 O2 Sat by Pulse Oximetry 94 O2 Sat by Pulse Oximetry 95 O2 Sat by Pulse Oximetry 95 O2 Sat by Pulse Oximetry 96 O2 Sat by Pulse Oximetry 97 O2 Sat by Pulse Oximetry 97 O2 Sat by Pulse Oximetry 98 O2 Sat by Pulse Oximetry 95 O2 Sat by Pulse Oximetry 98 Intake and Output: Intake & Output 05/04/23 05/05/23 05/06/23 05/07/23 23:59 23:59 23:59 23:59 Intake Total 884 / 884 3269 / 3269 4346.0 / 4346.0 1032 / 1032 Output Total 1000 / 1000 1100 / 1100 3400 / 3400 1500 / 1500 Balance -116 / -116 2169 / 2169 946.0 / 946.0 -468 / -468 Physical Exam Oriented: Normal Throat: Normal Respiratory: Normal Cardiovascular: Normal Auscultation: Bowel Sounds: Normal Tenderness: Normal Skin: Normal Musculoskeletal: Normal Psychiatric: Normal Mood Description: Calm Affect: Normal Speech Pattern: Clear and Appropriate Laboratory and Diagnostics 05/07/23 04:20 05/07/23 04:20 Labs: Laboratory WBC 9.9 X10^3/uL (3.6-10.0) 05/07/23 04:20 RBC 4.51 X10^6/uL (4.7-6.0) L 05/07/23 04:20 Hgb 12.4 g/dL (13.5-18.0) L 05/07/23 04:20 Hct 37.1 % (42.0-54.0) L 05/07/23 04:20 MCV 82.2 fL (80.0-100.0) 05/07/23 04:20 MCH 27.4 pg (27.0-34.0) 05/07/23 04:20 MCHC 33.3 g/dL (33.0-35.0) 05/07/23 04:20 RDW 13.6 % (11.6-16.5) 05/07/23 04:20 Plt Count 155 X10^3/uL (150.0-450.0) 05/07/23 04:20 Plt Count Comment Adequate (ADEQUATE) 05/06/23 04:30 MPV 8.1 fL (7.4-11.0) 05/07/23 04:20 Neut % (Auto) 43.3 % (42.0-75.0) 05/07/23 04:20 Lymph % (Auto) 46.0 % (21.0-51.0) 05/07/23 04:20 [place] % (Auto) 7.0 % (0.0-13.0) 05/07/23 04:20 Eos % (Auto) 3.0 % (0.9-2.9) H 05/07/23 04:20 Baso % (Auto) 0.7 % (0.2-1.0) 05/07/23 04:20 Neut # (Auto) 4.3 x10^3/uL (2.2-4.8) 05/07/23 04:20 Lymph # (Auto) 4.5 X10^3/uL (1.3-2.9) H 05/07/23 04:20 [place] # (Auto) 0.7 x10^3/uL (0.3-0.8) 05/07/23 04:20 Eos # (Auto) 0.3 x10^3/uL (0.0-0.2) H 05/07/23 04:20 Baso # (Auto) 0.1 X10^3/uL (0.0-0.1) 05/07/23 04:20 Absolute Nucleated RBC 0.0 /100WBC 05/07/23 04:20 Plt Clumps, EDTA Rare 05/06/23 04:30 Plt Morphology Comment Abnormal (NORMAL) 05/06/23 04:30 RBC Morphology Normal (NORMAL) 05/06/23 04:30 Sample Site Rr 05/04/23 19:01 ABG pH 7.100 (7.35-7.45) L* 05/04/23 19:01 ABG pCO2 37.0 mmHg (35.0-45.0) 05/04/23 19:01 ABG pO2 105.0 mmHg (80.0-100.0) H 05/04/23 19:01 ABG HCO3 11.5 mmol/L (22-26) L* 05/04/23 19:01 ABG O2 Saturation 96.0 % (90-100) 05/04/23 19:01 ABG Base Excess -17.3 mmol/L (-2.0-2.0) L 05/04/23 19:01 Geoff Test Pos 05/04/23 19:01 A-a Gradient 48.0 mmHg 05/04/23 19:01 FiO2 28.0 05/04/23 19:01 Blood Gas Comments Pt reece well cdn 05/04/23 19:01 Sodium 138 mmol/L (136-145) 05/07/23 04:20 Corrected Sodium 142 mmol/L (136-145) 05/07/23 04:20 Potassium 2.8 mmol/L (3.5-5.1) L* 05/07/23 04:20 Chloride 103 mmol/L (98-107) 05/07/23 04:20 Carbon Dioxide 29.6 mmol/L (21-32) 05/07/23 04:20 BUN 1 mg/dL (7-18) L 05/07/23 04:20 Creatinine 0.91 mg/dL (0.70-1.30) 05/07/23 04:20 Est GFR (MDRD) Af Amer > 60 (>60) 05/07/23 04:20 Est GFR (MDRD) Non-Af > 60 (>60) 05/07/23 04:20 Glucose 265 mg/dL (65-99) H 05/07/23 04:20 POC Glucose (mg/dL) 151 mg/dL (65-99) H 05/07/23 10:24 Calcium 8.5 mg/dL (8.5-10.1) 05/07/23 04:20 Corrected Calcium 9.5 mg/dL (8.5-10.1) 05/07/23 04:20 Magnesium 2.1 mg/dL (2.0-2.9) 05/07/23 04:20 Total Bilirubin 0.60 mg/dL (0.2-1.0) 05/07/23 04:20 AST 27 Units/L (15-37) 05/07/23 04:20 ALT 15 Units/L (12-78) 05/07/23 04:20 Alkaline Phosphatase 69 Units/L (46-116) 05/07/23 04:20 Total Protein 6.5 g/dL (6.4-8.2) 05/07/23 04:20 Albumin 2.8 g/dL (3.4-5.0) L 05/07/23 04:20 Globulin 3.7 g/dL (2.5-4.5) 05/07/23 04:20 Albumin/Globulin Ratio 0.8 Ratio (1.1-2.1) L 05/07/23 04:20 Lipase 9 Units/L (16-77) L 05/04/23 17:10 Specimen Type Clean catch urine 05/04/23 21:23 Urine Color Pale yellow (YELLOW) 05/04/23 21:23 Urine Appearance Clear (CLEAR) 05/04/23 21:23 Urine pH 6.0 (5.0 - 8.0) 05/04/23 21:23 Ur Specific [place] 1.025 (1.000-1.030) 05/04/23 21:23 Urine Protein 1+ (NEGATIVE) 05/04/23 21:23 Urine Glucose (UA) 4+ (NEGATIVE) 05/04/23 21:23 Urine Ketones 4+ (NEGATIVE) 05/04/23 21:23 Urine Blood 1+ (NEGATIVE) 05/04/23 21:23 Urine Nitrite Negative (NEGATIVE) 05/04/23 21:23 Urine Bilirubin Negative (NEGATIVE) 05/04/23 21:23 Urine Urobilinogen Normal (NORMAL) 05/04/23 21:23 Ur Leukocyte Esterase Negative (NEGATIVE) 05/04/23 21:23 Urine RBC 3-5 /HPF (0-3) A 05/04/23 21:23 Urine WBC 0-2 /HPF (0-5) 05/04/23 21:23 Ur Squamous Epith Cells Negative /HPF (NEGATIVE) 05/04/23 21:23 Urine Bacteria Negative /HPF (NEGATIVE) 05/04/23 21:23 Ur Culture Indicated? No/not indicated 05/04/23 21:23 Acetone, Semi-Quant Small (NEGATIVE) H 05/06/23 04:30 SARS-CoV-2 (PCR) Negative (NEGATIVE) 05/04/23 17:09 Influenza Type A (PCR) Negative (NEGATIVE) 05/04/23 17:09 Influenza Type B (PCR) Negative (NEGATIVE) 05/04/23 17:09 RSV (PCR) Negative (NEGATIVE) 05/04/23 17:09 Plan (1) Acute dehydration: Status: Acute (2) DKA (diabetic ketoacidosis): Status: Acute Qualifiers: Diabetes mellitus complication detail: without coma Diabetes mellitus type: type 1 Qualified Code(s): E10.10 - Type 1 diabetes mellitus with ketoacidosis without coma (3) Hypokalemia: Status: Acute (4) Hypomagnesemia: Status: Acute (5) Chronic pain: Status: Chronic Qualifiers: Chronic pain type: chronic pain syndrome Qualified Code(s): G89.4 - Chronic pain syndrome (6) Gastroparesis due to DM: Status: Chronic (7) HTN (hypertension): Status: Chronic Qualifiers: Hypertension type: primary hypertension Qualified Code(s): I10 - Essential (primary) hypertension (8) Anxiety disorder: Status: Chronic Qualifiers: Anxiety disorder type: generalized anxiety disorder Qualified Code(s): F41.1 - Generalized anxiety disorder
[2023-05-07] MEDS: K-DUR TAB 20 MEQ PO SCH (11:58)
[2023-05-07] MEDS ORDERED: MICRO K EXTEN CAP 10 MEQ PO ONE (12:00)
[2023-05-07] MEDS: NS + KCL 20 MEQ/L 1,000 ML IV SCH (12:02)
[2023-05-07] MEDS: LANTUS SC SCH (12:03)
[2023-05-07] MEDS ORDERED: SNACK - Diabetic Appropriate PO SCH (20:00)
[2023-05-07] MEDS: COLACE CAP 100 MG PO PRN (20:06)
[2023-05-07] MEDS: DESYREL PO SCH (20:06)
[2023-05-07] MEDS: NovoLIN R (or HumuLIN R) SC PRN (20:07)
[2023-05-08] MEDS: METHADONE HCL PO PRN ×2 (01:10→06:28)
[2023-05-08 04:47] LABS: BASOPHILS # (AUTO) 0.1 X10^3/uL (0.0-0.1); BASOPHILS % (AUTO) 0.8 % (0.2-1.0); EOSINOPHILS # (AUTO) 0.4 x10^3/uL (0.0-0.2); EOSINOPHILS % (AUTO) 3.9 % (0.9-2.9); HEMATOCRIT 36.5 % (42.0-54.0); HEMOGLOBIN 12.1 g/dL (13.5-18.0); LYMPHOCYTES # (AUTO) 4.8 X10^3/uL (1.3-2.9); MEAN CORPUSCULAR HEMOGLOBIN 27.4 pg (27.0-34.0); MEAN CORPUSCULAR HGB CONC 33.2 g/dL (33.0-35.0); MEAN CORPUSCULAR VOLUME 82.6 fL (80.0-100.0); MEAN PLATELET VOLUME 8.4 fL (7.4-11.0); MONOCYTES # (AUTO) 0.5 x10^3/uL (0.3-0.8); MONOCYTES % (AUTO) 5.7 % (0.0-13.0); NEUTROPHILS # (AUTO) 3.4 x10^3/uL (2.2-4.8); NEUTROPHILS % (AUTO) 37.6 % (42.0-75.0); PLATELET COUNT 152 X10^3/uL (150.0-450.0); RED BLOOD COUNT 4.42 X10^6/uL (4.7-6.0); RED CELL DISTRIBUTION WIDTH 13.6 % (11.6-16.5); WHITE BLOOD COUNT 9.1 X10^3/uL (3.6-10.0)
[2023-05-08 04:58] LABS: ALANINE AMINOTRANSFERASE 20 Units/L (12-78); ALBUMIN 2.7 g/dL (3.4-5.0); ALKALINE PHOSPHATASE 67 Units/L (46-116); ASPARTATE AMINO TRANSFERASE 23 Units/L (15-37); BLOOD UREA NITROGEN 5 mg/dL (7-18); CALCIUM 8.6 mg/dL (8.5-10.1); CARBON DIOXIDE 29.5 mmol/L (21-32); CHLORIDE 103 mmol/L (98-107); COR CA(FOR HYPOALB) 9.6 mg/dL (8.5-10.1); COR NA(FOR HYPERGLY) 140 mmol/L (136-145); CREATININE 0.64 mg/dL (0.70-1.30); GLUCOSE 225 mg/dL (65-99); POTASSIUM 3.5 mmol/L (3.5-5.1); SODIUM 137 mmol/L (136-145); TOTAL PROTEIN 6.3 g/dL (6.4-8.2); eGFR NON BLACK RACES > 60 (>60)
[2023-05-08 05:01] VITALS: TEMP 98.4
[2023-05-08] MEDS: XANAX PO SCH (05:30)
[2023-05-08] MEDS: NS + KCL 20 MEQ/L 1,000 ML IV SCH (05:31)
[2023-05-08] MEDS: NovoLIN R (or HumuLIN R) SC PRN (05:32)
[2023-05-08] MEDS ORDERED: CONSULT PHARMACY - POTASSIUM & MAGNESIUM XX SCH (06:00)
[2023-05-08] MEDS ORDERED: COLACE CAP 100 MG PO PRN (07:51)
[2023-05-08] MEDS ORDERED: MILK OF MAGNESIA PO PRN (07:51)
[2023-05-08] MEDS ORDERED: NS + KCL 40 MEQ/L 1,000 ML with MAGNESIUM SULFATE 50% INJ VIAL 1 G IV SCH ×2 (08:00)
[2023-05-08] MEDS ORDERED: MAG-OX TAB PO SCH (09:00)
[2023-05-08] MEDS ORDERED: K-DUR TAB 20 MEQ PO SCH (09:00)
--- NOTE | 2023-05-08 09:23 | DR.H&P ---
H&P History & Physical for Day of: H&P Date: 05/05/23 Chief Complaint Chief Complaint: Nausea and vomiting x 4 days Allergies Allergies Allergy/AdvReac Type Severity Reaction Status Date / Time No Known Drug Allergies Allergy Unknown Verified 03/10/23 18:07 History of Present Illness History of Present Illness: This is a pleasant 42-year-old white male well-known to me. He was brought in to make an emergency department via ambulance after the patient had become lethargic and vomiting. He has type 1 diabetes with multiple episodes of diabetic ketoacidosis. His blood sugar was running 418 in the ambulance. He reports that he was having frequent nausea vomiting diffuse abdominal pain. He also reports he had been constipated but denies any fever and chills. He also reported a slight cough and states that his blood sugars have been elevated since getting ill several days ago. He has a large amount of serum acetone and was subsequently started on a insulin drip per protocol and admitted to the ICU. Past Medical History Past Medical History: Anxiety, Diabetes and Hypertension Additional Medical History: DKA, Gastroparesis, Chronic Low Back Pain With Radiculopathy, Pancreatitis, UTI's Past Surgical History Surgical History: Other Additional Surgical History: [place] Teeth Surgically Removed Family History Family Medical History: Diabetes Mellitus, Sudden Cardiac and Hypertension Social History Does patient currently use any type of tobacco product: Yes Have you used tobacco products in the last 12 months: Yes Type of Tobacco Use: Cigarettes Does any household member use tobacco: Yes Alcohol Use: None Drug Use: Prescription Drugs and Methamphetamine Medications Home Medications: Home Medications Medication Instructions Recorded Confirmed Type alprazolam 1 mg tablet 1 mg PO TID 03/10/23 05/05/23 History famotidine 20 mg tablet 20 mg PO DAILY 03/10/23 03/10/23 History insulin glargine 100 unit/mL 10 unit subcut DAILY 03/10/23 03/10/23 History subcutaneous solution (Lantus U-100 Insulin) insulin regular human 100 unit/mL 20 unit subcut BID 03/10/23 03/10/23 History injection solution (Novolin R Regular U-100 Insulin) lisinopril 10 mg tablet 10 mg PO DAILY 03/10/23 03/10/23 History methadone 10 mg tablet 10 mg PO QID PRN 03/10/23 05/05/23 History metoprolol succinate 25 mg 25 mg PO BID 03/10/23 05/05/23 History tablet,extended release 24 hr losartan 25 mg tablet 25 mg PO QDAY 05/05/23 05/05/23 History promethazine 25 mg tablet 25 mg PO Q6H PRN 05/05/23 05/05/23 History trazodone 50 mg tablet 50 mg PO QPM 05/05/23 05/05/23 History Labs 05/08/23 04:19 05/08/23 04:19 Labs: Laboratory WBC 9.1 X10^3/uL (3.6-10.0) 05/08/23 04:19 RBC 4.42 X10^6/uL (4.7-6.0) L 05/08/23 04:19 Hgb 12.1 g/dL (13.5-18.0) L 05/08/23 04:19 Hct 36.5 % (42.0-54.0) L 05/08/23 04:19 MCV 82.6 fL (80.0-100.0) 05/08/23 04:19 MCH 27.4 pg (27.0-34.0) 05/08/23 04:19 MCHC 33.2 g/dL (33.0-35.0) 05/08/23 04:19 RDW 13.6 % (11.6-16.5) 05/08/23 04:19 Plt Count 152 X10^3/uL (150.0-450.0) 05/08/23 04:19 Plt Count Comment Adequate (ADEQUATE) 05/06/23 04:30 MPV 8.4 fL (7.4-11.0) 05/08/23 04:19 Neut % (Auto) 37.6 % (42.0-75.0) L 05/08/23 04:19 Lymph % (Auto) 52.0 % (21.0-51.0) H 05/08/23 04:19 [place] % (Auto) 5.7 % (0.0-13.0) 05/08/23 04:19 Eos % (Auto) 3.9 % (0.9-2.9) H 05/08/23 04:19 Baso % (Auto) 0.8 % (0.2-1.0) 05/08/23 04:19 Neut # (Auto) 3.4 x10^3/uL (2.2-4.8) 05/08/23 04:19 Lymph # (Auto) 4.8 X10^3/uL (1.3-2.9) H 05/08/23 04:19 [place] # (Auto) 0.5 x10^3/uL (0.3-0.8) 05/08/23 04:19 Eos # (Auto) 0.4 x10^3/uL (0.0-0.2) H 05/08/23 04:19 Baso # (Auto) 0.1 X10^3/uL (0.0-0.1) 05/08/23 04:19 Absolute Nucleated RBC 0.1 /100WBC 05/08/23 04:19 Plt Clumps, EDTA Rare 05/06/23 04:30 Plt Morphology Comment Abnormal (NORMAL) 05/06/23 04:30 RBC Morphology Normal (NORMAL) 05/06/23 04:30 Sample Site Rr 05/04/23 19:01 ABG pH 7.100 (7.35-7.45) L* 05/04/23 19:01 ABG pCO2 37.0 mmHg (35.0-45.0) 05/04/23 19:01 ABG pO2 105.0 mmHg (80.0-100.0) H 05/04/23 19:01 ABG HCO3 11.5 mmol/L (22-26) L* 05/04/23 19:01 ABG O2 Saturation 96.0 % (90-100) 05/04/23 19:01 ABG Base Excess -17.3 mmol/L (-2.0-2.0) L 05/04/23 19:01 Geoff Test Pos 05/04/23 19:01 A-a Gradient 48.0 mmHg 05/04/23 19:01 FiO2 28.0 05/04/23 19:01 Blood Gas Comments Pt reece well cdn 05/04/23 19:01 Sodium 137 mmol/L (136-145) 05/08/23 04:19 Corrected Sodium 140 mmol/L (136-145) 05/08/23 04:19 Potassium 3.5 mmol/L (3.5-5.1) 05/08/23 04:19 Chloride 103 mmol/L (98-107) 05/08/23 04:19 Carbon Dioxide 29.5 mmol/L (21-32) 05/08/23 04:19 BUN 5 mg/dL (7-18) L 05/08/23 04:19 Creatinine 0.64 mg/dL (0.70-1.30) L 05/08/23 04:19 Est GFR (MDRD) Af Amer > 60 (>60) 05/08/23 04:19 Est GFR (MDRD) Non-Af > 60 (>60) 05/08/23 04:19 Glucose 225 mg/dL (65-99) H 05/08/23 04:19 POC Glucose (mg/dL) 240 mg/dL (65-99) H 05/08/23 05:05 Calcium 8.6 mg/dL (8.5-10.1) 05/08/23 04:19 Corrected Calcium 9.6 mg/dL (8.5-10.1) 05/08/23 04:19 Magnesium 1.6 mg/dL (2.0-2.9) L 05/08/23 04:19 Total Bilirubin 0.90 mg/dL (0.2-1.0) 05/08/23 04:19 AST 23 Units/L (15-37) 05/08/23 04:19 ALT 20 Units/L (12-78) 05/08/23 04:19 Alkaline Phosphatase 67 Units/L (46-116) 05/08/23 04:19 Total Protein 6.3 g/dL (6.4-8.2) L 05/08/23 04:19 Albumin 2.7 g/dL (3.4-5.0) L 05/08/23 04:19 Globulin 3.6 g/dL (2.5-4.5) 05/08/23 04:19 Albumin/Globulin Ratio 0.8 Ratio (1.1-2.1) L 05/08/23 04:19 Lipase 9 Units/L (16-77) L 05/04/23 17:10 Specimen Type Clean catch urine 05/04/23 21:23 Urine Color Pale yellow (YELLOW) 05/04/23 21:23 Urine Appearance Clear (CLEAR) 05/04/23 21:23 Urine pH 6.0 (5.0 - 8.0) 05/04/23 21:23 Ur Specific [place] 1.025 (1.000-1.030) 05/04/23 21:23 Urine Protein 1+ (NEGATIVE) 05/04/23 21:23 Urine Glucose (UA) 4+ (NEGATIVE) 05/04/23 21:23 Urine Ketones 4+ (NEGATIVE) 05/04/23 21:23 Urine Blood 1+ (NEGATIVE) 05/04/23 21:23 Urine Nitrite Negative (NEGATIVE) 05/04/23 21:23 Urine Bilirubin Negative (NEGATIVE) 05/04/23 21:23 Urine Urobilinogen Normal (NORMAL) 05/04/23 21:23 Ur Leukocyte Esterase Negative (NEGATIVE) 05/04/23 21:23 Urine RBC 3-5 /HPF (0-3) A 05/04/23 21:23 Urine WBC 0-2 /HPF (0-5) 05/04/23 21:23 Ur Squamous Epith Cells Negative /HPF (NEGATIVE) 05/04/23 21:23 Urine Bacteria Negative /HPF (NEGATIVE) 05/04/23 21:23 Ur Culture Indicated? No/not indicated 05/04/23 21:23 Acetone, Semi-Quant Negative (NEGATIVE) 05/08/23 04:19 SARS-CoV-2 (PCR) Negative (NEGATIVE) 05/04/23 17:09 Influenza Type A (PCR) Negative (NEGATIVE) 05/04/23 17:09 Influenza Type B (PCR) Negative (NEGATIVE) 05/04/23 17:09 RSV (PCR) Negative (NEGATIVE) 05/04/23 17:09 Review of Systems Constitutional: No Symptoms Reported, Weakness and Malaise; denies Fever Eyes: No Symptoms Reported ENT: No Symptoms Reported Respiratory: Cough Cardiovascular: No Symptoms Reported Gastrointestinal: No Symptoms Reported Genitourinary: No Symptoms Reported Musculoskeletal: No Symptoms Reported Skin: No Symptoms Reported Neurological: No Symptoms Reported Physical Exam Vital Signs: Vital Signs Temperature 98.4 F Pulse Rate 73 Pulse Rate 73 Pulse Rate 78 Pulse Rate 72 Pulse Rate 77 Pulse Rate 84 Pulse Rate 79 Pulse Rate 77 Pulse Rate 78 Pulse Rate 72 Pulse Rate 78 Pulse Rate 75 Respiratory Rate 18 Respiratory Rate 8 Respiratory Rate 18 Respiratory Rate 9 Respiratory Rate 22 Respiratory Rate 20 Respiratory Rate 6 Respiratory Rate 14 Respiratory Rate 10 Respiratory Rate 12 Respiratory Rate 11 Respiratory Rate 12 Respiratory Rate 15 Respiratory Rate 10 Respiratory Rate 12 Blood Pressure 165/107 Blood Pressure 171/106 Blood Pressure 171/106 Blood Pressure 160/104 Blood Pressure 170/103 Blood Pressure 160/87 Blood Pressure 160/87 Blood Pressure 164/99 Blood Pressure 164/99 Blood Pressure 164/99 Blood Pressure 133/88 Blood Pressure 133/88 Blood Pressure 157/96 Blood Pressure 157/96 O2 Sat by Pulse Oximetry 98 O2 Sat by Pulse Oximetry 97 O2 Sat by Pulse Oximetry 98 O2 Sat by Pulse Oximetry 98 O2 Sat by Pulse Oximetry 96 O2 Sat by Pulse Oximetry 98 O2 Sat by Pulse Oximetry 95 O2 Sat by Pulse Oximetry 96 O2 Sat by Pulse Oximetry 96 O2 Sat by Pulse Oximetry 97 O2 Sat by Pulse Oximetry 96 O2 Sat by Pulse Oximetry 97 Oriented: Normal Eyes: Normal Ear: Normal Nose: Normal Throat: Normal Respiratory: Clear Throughout Cardiovascular: Normal : Normal Auscultation: Bowel Sounds: Normal Palpation: Normal Tenderness: Normal Skin: Normal Musculoskeletal: Normal Psychiatric: Normal Mood Description: Calm Affect: Normal Speech Pattern: Clear and Appropriate Assessment/Plan (1) Acute dehydration: Status: Acute Plan: IV hydration. (2) DKA (diabetic ketoacidosis): Qualifiers: Diabetes mellitus complication detail: without coma Diabetes mellitus type: type 1 Qualified Code(s): E10.10 - Type 1 diabetes mellitus with ketoacidosis without coma Status: Acute Plan: Insulin drip per protocol. (3) Hypokalemia: Status: Acute (4) Hypomagnesemia: Status: Acute Plan: Corrected with magnesium supplementations. (5) Chronic pain: Qualifiers: Chronic pain type: chronic pain syndrome Qualified Code(s): G89.4 - Chronic pain syndrome Status: Chronic Plan: Continue methadone for pain control. (6) Gastroparesis due to DM: Status: Chronic Plan: Reglan. (7) HTN (hypertension): Qualifiers: Hypertension type: primary hypertension Qualified Code(s): I10 - Essential (primary) hypertension Status: Chronic Plan: Monitor daily blood pressures and treat accordingly (8) Anxiety disorder: Qualifiers: Anxiety disorder type: generalized anxiety disorder Qualified Code(s): F41.1 - Generalized anxiety disorder Status: Chronic Review H&P Reviewed: Yes Patient was examined?: Yes
[2023-05-08 09:30] VITALS: BP 159/96; PULSE 77; RESP 16; O2SAT 97
--- NOTE | 2023-05-08 09:31 | PCM.DCPLAN ---
DISCHARGE SUMMARY Admission Date Date of Admission: 05/04/23 Discharge Date Discharge Date: 05/08/23 Admission Diagnoses (1) Acute dehydration: Status: Acute (2) DKA (diabetic ketoacidosis): Status: Acute (3) Hypokalemia: Status: Acute (4) Hypomagnesemia: Status: Acute (5) Chronic pain: Status: Chronic (6) Gastroparesis due to DM: Status: Chronic (7) HTN (hypertension): Status: Chronic (8) Anxiety disorder: Status: Chronic Discharge Diagnoses Discharge Diagnosis: 1. DKA resolved 2. Dehydration resolved 3. Hypokalemia resolved 4. Hypomagnesemia 5. Chronic pain 6. Diabetic gastroparesis 7. Hypertension 8. Anxiety disorder Discharge Medications Discharge Medications: Home Medication List losartan 25 mg tablet 25 mg PO QDAY 05/05/23 [History] promethazine 25 mg tablet 25 mg PO Q6H PRN 05/05/23 [History] trazodone 50 mg tablet 50 mg PO QPM 05/05/23 [History] Prescriptions: Hospital Course Vital Signs: Vital Signs Temperature 98.4 F Pulse Rate 73 Pulse Rate 73 Pulse Rate 78 Pulse Rate 72 Pulse Rate 77 Pulse Rate 84 Pulse Rate 79 Pulse Rate 77 Pulse Rate 78 Pulse Rate 72 Pulse Rate 78 Pulse Rate 75 Respiratory Rate 18 Respiratory Rate 8 Respiratory Rate 18 Respiratory Rate 9 Respiratory Rate 22 Respiratory Rate 20 Respiratory Rate 6 Respiratory Rate 14 Respiratory Rate 10 Respiratory Rate 12 Respiratory Rate 11 Respiratory Rate 12 Respiratory Rate 15 Respiratory Rate 10 Respiratory Rate 12 Blood Pressure 165/107 Blood Pressure 171/106 Blood Pressure 171/106 Blood Pressure 160/104 Blood Pressure 170/103 Blood Pressure 160/87 Blood Pressure 160/87 Blood Pressure 164/99 Blood Pressure 164/99 Blood Pressure 164/99 Blood Pressure 133/88 Blood Pressure 133/88 Blood Pressure 157/96 Blood Pressure 157/96 O2 Sat by Pulse Oximetry 98 O2 Sat by Pulse Oximetry 97 O2 Sat by Pulse Oximetry 98 O2 Sat by Pulse Oximetry 98 O2 Sat by Pulse Oximetry 96 O2 Sat by Pulse Oximetry 98 O2 Sat by Pulse Oximetry 95 O2 Sat by Pulse Oximetry 96 O2 Sat by Pulse Oximetry 96 O2 Sat by Pulse Oximetry 97 O2 Sat by Pulse Oximetry 96 O2 Sat by Pulse Oximetry 97 Latest Lab Results: Laboratory Last Values WBC 9.1 X10^3/uL (3.6-10.0) 05/08/23 04:19 RBC 4.42 X10^6/uL (4.7-6.0) L 05/08/23 04:19 Hgb 12.1 g/dL (13.5-18.0) L 05/08/23 04:19 Hct 36.5 % (42.0-54.0) L 05/08/23 04:19 MCV 82.6 fL (80.0-100.0) 05/08/23 04:19 MCH 27.4 pg (27.0-34.0) 05/08/23 04:19 MCHC 33.2 g/dL (33.0-35.0) 05/08/23 04:19 RDW 13.6 % (11.6-16.5) 05/08/23 04:19 Plt Count 152 X10^3/uL (150.0-450.0) 05/08/23 04:19 Plt Count Comment Adequate (ADEQUATE) 05/06/23 04:30 MPV 8.4 fL (7.4-11.0) 05/08/23 04:19 Neut % (Auto) 37.6 % (42.0-75.0) L 05/08/23 04:19 Lymph % (Auto) 52.0 % (21.0-51.0) H 05/08/23 04:19 [place] % (Auto) 5.7 % (0.0-13.0) 05/08/23 04:19 Eos % (Auto) 3.9 % (0.9-2.9) H 05/08/23 04:19 Baso % (Auto) 0.8 % (0.2-1.0) 05/08/23 04:19 Neut # (Auto) 3.4 x10^3/uL (2.2-4.8) 05/08/23 04:19 Lymph # (Auto) 4.8 X10^3/uL (1.3-2.9) H 05/08/23 04:19 [place] # (Auto) 0.5 x10^3/uL (0.3-0.8) 05/08/23 04:19 Eos # (Auto) 0.4 x10^3/uL (0.0-0.2) H 05/08/23 04:19 Baso # (Auto) 0.1 X10^3/uL (0.0-0.1) 05/08/23 04:19 Absolute Nucleated RBC 0.1 /100WBC 05/08/23 04:19 Plt Clumps, EDTA Rare 05/06/23 04:30 Plt Morphology Comment Abnormal (NORMAL) 05/06/23 04:30 RBC Morphology Normal (NORMAL) 05/06/23 04:30 Sample Site Rr 05/04/23 19:01 ABG pH 7.100 (7.35-7.45) L* 05/04/23 19:01 ABG pCO2 37.0 mmHg (35.0-45.0) 05/04/23 19:01 ABG pO2 105.0 mmHg (80.0-100.0) H 05/04/23 19:01 ABG HCO3 11.5 mmol/L (22-26) L* 05/04/23 19:01 ABG O2 Saturation 96.0 % (90-100) 05/04/23 19:01 ABG Base Excess -17.3 mmol/L (-2.0-2.0) L 05/04/23 19:01 Geoff Test Pos 05/04/23 19:01 A-a Gradient 48.0 mmHg 05/04/23 19:01 FiO2 28.0 05/04/23 19:01 Blood Gas Comments Pt reece well cdn 05/04/23 19:01 Sodium 137 mmol/L (136-145) 05/08/23 04:19 Corrected Sodium 140 mmol/L (136-145) 05/08/23 04:19 Potassium 3.5 mmol/L (3.5-5.1) 05/08/23 04:19 Chloride 103 mmol/L (98-107) 05/08/23 04:19 Carbon Dioxide 29.5 mmol/L (21-32) 05/08/23 04:19 BUN 5 mg/dL (7-18) L 05/08/23 04:19 Creatinine 0.64 mg/dL (0.70-1.30) L 05/08/23 04:19 Est GFR (MDRD) Af Amer > 60 (>60) 05/08/23 04:19 Est GFR (MDRD) Non-Af > 60 (>60) 05/08/23 04:19 Glucose 225 mg/dL (65-99) H 05/08/23 04:19 POC Glucose (mg/dL) 240 mg/dL (65-99) H 05/08/23 05:05 Calcium 8.6 mg/dL (8.5-10.1) 05/08/23 04:19 Corrected Calcium 9.6 mg/dL (8.5-10.1) 05/08/23 04:19 Magnesium 1.6 mg/dL (2.0-2.9) L 05/08/23 04:19 Total Bilirubin 0.90 mg/dL (0.2-1.0) 05/08/23 04:19 AST 23 Units/L (15-37) 05/08/23 04:19 ALT 20 Units/L (12-78) 05/08/23 04:19 Alkaline Phosphatase 67 Units/L (46-116) 05/08/23 04:19 Total Protein 6.3 g/dL (6.4-8.2) L 05/08/23 04:19 Albumin 2.7 g/dL (3.4-5.0) L 05/08/23 04:19 Globulin 3.6 g/dL (2.5-4.5) 05/08/23 04:19 Albumin/Globulin Ratio 0.8 Ratio (1.1-2.1) L 05/08/23 04:19 Lipase 9 Units/L (16-77) L 05/04/23 17:10 Specimen Type Clean catch urine 05/04/23 21:23 Urine Color Pale yellow (YELLOW) 05/04/23 21:23 Urine Appearance Clear (CLEAR) 05/04/23 21:23 Urine pH 6.0 (5.0 - 8.0) 05/04/23 21:23 Ur Specific [place] 1.025 (1.000-1.030) 05/04/23 21:23 Urine Protein 1+ (NEGATIVE) 05/04/23 21:23 Urine Glucose (UA) 4+ (NEGATIVE) 05/04/23 21:23 Urine Ketones 4+ (NEGATIVE) 05/04/23 21:23 Urine Blood 1+ (NEGATIVE) 05/04/23 21:23 Urine Nitrite Negative (NEGATIVE) 05/04/23 21:23 Urine Bilirubin Negative (NEGATIVE) 05/04/23 21:23 Urine Urobilinogen Normal (NORMAL) 05/04/23 21:23 Ur Leukocyte Esterase Negative (NEGATIVE) 05/04/23 21:23 Urine RBC 3-5 /HPF (0-3) A 05/04/23 21:23 Urine WBC 0-2 /HPF (0-5) 05/04/23 21:23 Ur Squamous Epith Cells Negative /HPF (NEGATIVE) 05/04/23 21:23 Urine Bacteria Negative /HPF (NEGATIVE) 05/04/23 21:23 Ur Culture Indicated? No/not indicated 05/04/23 21:23 Acetone, Semi-Quant Negative (NEGATIVE) 05/08/23 04:19 SARS-CoV-2 (PCR) Negative (NEGATIVE) 05/04/23 17:09 Influenza Type A (PCR) Negative (NEGATIVE) 05/04/23 17:09 Influenza Type B (PCR) Negative (NEGATIVE) 05/04/23 17:09 RSV (PCR) Negative (NEGATIVE) 05/04/23 17:09 Hospital Course: This is a pleasant 42-year-old white male well-known to me. He was brought in to make an emergency department via ambulance after the patient had become lethargic and vomiting. He has type 1 diabetes with multiple episodes of diabetic ketoacidosis. His blood sugar was running 418 in the ambulance. He reports that he was having frequent nausea vomiting diffuse abdominal pain. He also reports he had been constipated but denies any fever and chills. He also reported a slight cough and states that his blood sugars have been elevated since getting ill several days ago. He has a large amount of serum acetone and was subsequently started on a insulin drip per protocol and admitted to the ICU. By the following day the patient was still having a small amount acetone. He was found to units of insulin we will continue him on the drip. We started his methadone for his chronic pain that he was having and by the next morning he was to have a small acetone. It he was off insulin drip so we continued him on treatment for 1 more day and this morning he is acetone negative. Patient is not had any further nausea vomiting or diarrhea since being in the hospital since admission. We will go ahead and discharge him home today in stable condition. He will be resuming his regular home medication as before and following up with his primary care physician Dr. Faye again in [place], [place].
[2023-05-08] MEDS: COZAAR PO SCH (09:42)
[2023-05-08] MEDS: K-DUR TAB 20 MEQ PO SCH (09:42)
[2023-05-08] MEDS: COLACE CAP 100 MG PO PRN (09:43)
[2023-05-08] MEDS: LANTUS SC SCH (09:43)
[2023-05-08] MEDS: TOPROL XL PO SCH (09:43)
== END 2023-05-08 10:47 | disposition home or self-care (01) | DRG 639 ==
LOC: ER 16:45 → ICU 19:41
PROVIDERS: ADMIT Family Medicine; ATTEND Family Medicine